=== PATIENT | male | born 1960 | race Caucasian/White ===

== ENCOUNTER 2022-02-16 08:52 | Emergency (ER) | payer BC, SELFPAY ==
[2022-02-16 09:01] VITALS: BP 112/63; PULSE 70; RESP 18; TEMP 36.8; O2SAT 97; BMI 43.6
--- NOTE | 2022-02-16 09:05 | ED.NURSE ---
When sign writer letterer or painter was triaging patient, he continued to provide extraneous information. Dictating Machine Transcriber explained questions necessary for triage and patient reported well I'll just shut the fuck up then. Patient encouraged to help provide relevant information. When asking patient about medications and allergies he is unable to recall information.
--- NOTE | 2022-02-16 09:10 | ED.NURSE ---
in RM to speak with pt, pt reportedly unsatisfied with testing options offered by MD. Pt stated he would leave and go to a different ER. Pt walked out of room, stating he was leaving. Pt walked out the wrong door, guided to the correct exit to the ER parking lot.
--- NOTE | 2022-02-16 09:20 | ED_ITS ---
HPI - General Adult General Date Seen: 02/16/22 Chief complaint: Urogenital Problems, Male Stated complaint: Prostate issues, cant empty bladder Time Seen by Provider: 02/16/22 09:08 Source: patient History of Present Illness HPI narrative: Patient is a 61-year-old who presents because of concerns of urinary retention. For the past couple of days he feels like he is not emptying his bladder completely. His dad had prostate cancer. He also feels like he is retaining fluid, he says he has stage 4 kidney disease and he has had back pain which is more chronic for him. He put all this together in his head as possible prostate problems. His dad did have prostate cancer. He says he was unable to make an appointment at the [facility] in a timely manner and ?even urgent care was 1 week out?. So he was told to come to the ER. He has not had hematuria or dysuria. No fevers. No abdominal pain. He has not had inability to void, just feels like he isn't emptying his bladder completely. Related Data Home Medications Medication Instructions Recorded Confirmed allopurinol 100 mg tablet 100 mg PO tab 02/01/22 02/01/22 aspirin 81 mg tablet,delayed 81 mg PO tab 02/01/22 02/01/22 release atorvastatin 40 mg tablet 40 mg PO tab 02/01/22 02/01/22 brimonidine 0.15 % eye drops 1 drp OPHTHALMIC (EYE) BID 02/01/22 02/01/22 calcium acetate 667 mg tablet mg PO 02/01/22 02/01/22 cholecalciferol (vitamin D3) 50 2,000 unit PO cap 02/01/22 02/01/22 mcg (2,000 unit) capsule cyanocobalamin (vitamin B-12) 1,000 mcg PO 02/01/22 02/01/22 1,000 mcg tablet doxycycline monohydrate 100 mg 100 mg PO cap 02/01/22 02/01/22 capsule dulaglutide 1.5 mg/0.5 mL mg SUBCUT 02/01/22 02/01/22 subcutaneous pen injector duloxetine 60 mg capsule,delayed 60 mg PO 02/01/22 02/01/22 release insulin aspart U-100 100 unit/mL SUBCUT 02/01/22 02/01/22 (3 mL) subcutaneous pen insulin degludec 200 unit/mL (3 unit SUBCUT 02/01/22 02/01/22 mL) subcutaneous pen leflunomide 10 mg tablet 10 mg PO tab 02/01/22 02/01/22 levothyroxine 100 mcg tablet 100 mcg PO tab 02/01/22 02/01/22 lisinopril 10 mg tablet 10 mg PO tab 02/01/22 02/01/22 metolazone 2.5 mg tablet 2.5 mg PO tab 02/01/22 02/01/22 metoprolol succinate 100 mg 100 mg PO tab 02/01/22 02/01/22 tablet,extended release 24 hr midazolam 1 mg/mL injection 1 mg IM ml 02/01/22 02/01/22 solution nitroglycerin 0.4 mg sublingual 0.4 mg BUCCAL 02/01/22 02/01/22 tablet nortriptyline 25 mg capsule 75 mg PO cap 02/01/22 02/01/22 pantoprazole 40 mg tablet,delayed 40 mg PO tab 02/01/22 02/01/22 release peg 3350-electrolytes 236 30 ml PO ml 02/01/22 02/01/22 gram-22.74 gram-6.74 gram-5.86 gram solution pregabalin 100 mg capsule 100 mg PO cap 02/01/22 02/01/22 pyridoxine (vitamin B6) 100 mg 100 mg PO tab 02/01/22 02/01/22 tablet ropinirole 4 mg tablet 4 mg PO tab 02/01/22 02/01/22 timolol maleate (PF) 0.5 % eye 1 drp OPHTHALMIC (EYE) 02/01/22 02/01/22 drops in a dropperette tizanidine 2 mg tablet 2 mg PO tab 02/01/22 02/01/22 torsemide 20 mg tablet 80 mg PO 02/01/22 02/01/22 Allergies Allergy/AdvReac Type Severity Reaction Status Date / Time allopurinol Allergy Unknown Verified 02/16/22 09:10 amlodipine Allergy Unknown Verified 02/01/22 08:28 milk Allergy Unknown Verified 02/01/22 08:28 topiramate Allergy Unknown Verified 02/01/22 08:28 Review of Systems Status of ROS: Reports: 6 or more systems reviewed and unremarkable except as noted in History and below [facility] Medical History Kidney disease Family History Other Prostate cancer Social History Smoking Status: Never smoker Second hand tobacco smoke exposure: No How often do you have a drink containing alcohol: never How often do you have six or more drinks on one occasion: Never AUDIT-C Alcohol total score: 0 Non-prescribed substance use: marijuana (any form) service: No Exam Narrative: Exam Narrative: Vital signs reviewed In general, an alert, nontoxic male. He is conversant, appears comfortable. Head: Normocephalic, atraumatic. Eyes: Pupils are equal. Sclerae anicteric. Extremities: Well perfused. Edema in the left lower extremity, site of previous ankle surgery. Skin: Warm dry, well perfused. Const: Vital Signs, click to edit/add: Vital Signs - 24 hr 02/16/22 09:01 Temperature 98.2 F Pulse Rate [Pulse Oximeter] 70 Respiratory Rate 18 Blood Pressure [Ri ght Upper Arm] 112/63 Pulse Oximetry 97 Course Course Hospital Course: After initial discussion with the patient, I discussed with him that in terms of emergency department workup, this is something that we would typically do a urinalysis for and a postvoid residual. I reviewed with him that we are not really able to assess him in terms of telling him whether he has prostate cancer or other problems with his prostate such as benign prostatic hypertrophy, that he would need to make a follow-up appointment with Urology. He seemed upset by this, and said that if we were not able to evaluate his prostate he would just go. I again offered to do the things that we are able to do in the emergency department, but he did not want that. He got up and left. He said he would go to a different ER. He said he wanted a test to evaluate his prostate. I said that while there is a blood test called a PSA, this is not something that we would typically do out of the emergency department, and that is in fact is not even a necessarily recommended screening test anymore. And at the end of the day, what he really needs is a follow-up appointment with Urology. He said that he could just tell that within a day or 2 he was going to need an appointment and if he couldn't be seen by then it was not worth making an appointment. Vital Signs Vital signs: Initial Vital Signs Temperature 98.2 F 02/16/22 09:01 Temperature Source Temporal Artery Scan 02/16/22 09:01 Pulse Rate 70 02/16/22 09:01 Respiratory Rate 18 02/16/22 09:01 Blood Pressure 112/63 02/16/22 09:01 Blood Pressure Mean 79 02/16/22 09:01 Blood Pressure Position Supine 02/16/22 09:01 Pulse Oximetry 97 02/16/22 09:01 Oxygen Delivery Method 02/16/22 09:01 Vital Signs Temperature 98.2 F 02/16/22 09:01 Pulse Rate 70 02/16/22 09:01 Respiratory Rate 18 02/16/22 09:01 Blood Pressure 112/63 02/16/22 09:01 Pulse Oximetry 97 02/16/22 09:01 Temperature 98.2 F 02/16/22 09:01 Pulse Rate 70 02/16/22 09:01 Respiratory Rate 18 02/16/22 09:01 Blood Pressure 112/63 02/16/22 09:01 Pulse Oximetry 97 02/16/22 09:01 Discharge Plan Discharge Clinical Impression: Difficulty urinating Prescriptions: No Action calcium acetate 667 mg tablet PO 0RF dulaglutide 1.5 mg/0.5 mL pen injector subcut 0RF insulin degludec 200 unit/mL (3 mL) insulin pen subcut 0RF cholecalciferol (vitamin D3) 50 mcg (2,000 unit) capsule 2,000 unit PO 0RF peg 3350-electrolytes 236-22.74-6.74 -5.86 gram recon soln 30 ml PO 0RF pregabalin 100 mg capsule 100 mg PO 0RF duloxetine 60 mg capsule,delayed release(DR/EC) 60 mg PO 0RF timolol maleate (PF) 0.5 % dropperette 1 drp ophthalmic (eye) 0RF insulin aspart U-100 100 unit/mL (3 mL) insulin pen subcut 0RF midazolam 1 mg/mL solution 1 mg IM 0RF metolazone 2.5 mg tablet 2.5 mg PO 0RF atorvastatin 40 mg tablet 40 mg PO 0RF torsemide 20 mg tablet 80 mg PO 0RF tizanidine 2 mg tablet 2 mg PO 0RF metoprolol succinate 100 mg tablet extended release 24 hr 100 mg PO 0RF cyanocobalamin (vitamin B-12) 1,000 mcg tablet 1,000 mcg PO 0RF allopurinol 100 mg tablet 100 mg PO 0RF aspirin 81 mg tablet,delayed release (DR/EC) 81 mg PO 0RF nortriptyline 25 mg capsule 75 mg PO 0RF levothyroxine 100 mcg tablet 100 mcg PO 0RF doxycycline monohydrate 100 mg capsule 100 mg PO 0RF nitroglycerin 0.4 mg tablet, sublingual 0.4 mg buccal 0RF lisinopril 10 mg tablet 10 mg PO 0RF brimonidine 0.15 % drops 1 drp ophthalmic (eye) BID 0RF ropinirole 4 mg tablet 4 mg PO 0RF pantoprazole 40 mg tablet,delayed release (DR/EC) 40 mg PO 0RF pyridoxine (vitamin B6) 100 mg tablet 100 mg PO 0RF leflunomide 10 mg tablet 10 mg PO 0RF Follow Up/Referrals: Ben Cadena MD [Primary Care Provider] -
== END 2022-02-16 09:20 | disposition left against medical advice (07) ==
PROVIDERS: Emergency Provider Emergency Medicine; PCP Family Medicine
DX: R33.9 Retention of urine, unspecified (principal)
CPT/HCPCS: 99281; 99283

== ENCOUNTER 2022-03-21 07:30 | Outpatient (RCR) | payer BC, SELFPAY ==
--- NOTE | 2022-02-16 11:14 | PT.OPEX ---
PT [facility] Outpatient Eval PT [facility] Outpatient Eval Start: 02/16/22 10:32 Freq: Status: Active Protocol: Document 02/16/22 10:33 KIMI (Rec: 02/16/22 11:02 KIMI [id number]) E-Signed By Felicia Srinivasan DPT Physical Therapy Outpatient Evaluation Insurance Information Recert Due Date 05/12/22 Insurance Name Other; See Comments Insurance Information/Comments [place] [employer] [place] Medical Diagnosis s/p L RCR 12/22/21 Treating Diagnosis s/p L RCR 12/22/21 with L shoulder pain, impaired L shoulder ROM, impaired L shoulder strength, impaired functional use of L shoulder/ UE Subjective Subjective Patient reports having L RCR surgery in December, he is unable to recall the date but able to pull it up in his EMR. L RCR 12/22/21. Patient admits that he has been out of the sling for some time, didn't really use the sling much at all. He had 6 week f/u appt with MD last week and has been cleared for AROM and discontinuation of his sling. Patient reports that he has been moving his L shoulder around regularly, using L shoulder/UE for daily/ work activities. He reports minimal L shoulder pain. Having more issues with his LBP, L ankle pain, and prostrate lately. States he takes pain meds regularly for his back and ankle pain. L shoulder pain rated 1-3/10. Sleep is interrupted but again with multiple other issues going on at this time. Patient is using ice on L shoulder as needed. States he really over did it with activity a few times and had to use ice. Date of Last Physician Visit 02/01/22 Date of Surgery (If applicable) 12/22/21 Preferred Name Tyra Precautions Treatment Precautions/Contraindications DM, heart condition, HTN, pacemaker, OA, hx R RCR, hx L ankle ORIF Objective Range of Motion L shoulder AROM: flex 155 degrees, abd 150 degrees, IR with hands placed behind LB to low t-spine, ER with hands placed behind head/upper back to upper t-spine. Strength strength testing deferred at this time, s/p L RCR 12/22/21 Assessment Assessment/Impression Patient is a 61 year old male s/p L RCR 12/22/21 with L shoulder pain, impaired L shoulder ROM, impaired L shoulder strength, impaired functional use of L shoulder/ UE. L shoulder pain range 1-3 /10. Patient was not using his sling after surgery, but had f/u with MD and given the ok to discontinue it. He admits to using his L shoulder /UE for daily/work activities for the last several weeks. L shoulder AROM: flex 155 degrees, abd 150 degrees, IR with hands placed behind LB to low t-spine, ER with hands placed behind head/upper back to upper t-spine. Strength testing deferred at this time, s/p L RCR 12/22/21. Patient c/ o multiple health issues at this time, multiple other areas of pain. Able to initiate HEP today for ROM, stretching, start of AA/AROM for gentle strengthening/ endurance - all tolerated well . Patient would benefit from skilled PT for pain/sx management, improved L shoulder ROM, improved L shoulder strength/stability, return to full functional use of L shoulder/UE for daily/ work activities, and establishment of HEP> Plan of Care Rehabilitation Potential Good Physical Therapy Goals 1. Decrease L shoulder pain to less than/equal to 3/10 with daily activities and with the progression of PT activities over the next 6-8 weeks. 2. Improve L shoulder PROM to WFL within 4-6 weeks to prepare for return to functional use of L shoulder/ UE. 3. Improve L shoulder AROM to WFL within 10-12 weeks for return to functional use of L shoulder/UE with daily/work activities. 4. Improve L shoulder/UE strength over the next 12-16 weeks for return to full functional use of L shoulder/ UE with daily/work activities. 5. Patient will be I with HEP within 12 weeks for progression toward above goals , ongoing self management of pain/sx, ongoing self improvements in ROM/strength/function, and for return to full functional use of L shoulder/UE with daily activities. Coordination/Communication With Referral Source Treatment Plan/Direct Interventions Manual Therapy,Therapeutic Exercises Frequency/Duration 1-2x/week Patient Will Be Discharged From Therapy Completion of LTG(s),Skills Plateau,Independent w/HEP, Independently Progressing Evaluation Billing Untimed Code Treatment Minutes 20 Complexity Moderate Certification Information Initial Certification Date 02/16/22 Ending Certification Date 05/12/22
== END 2022-05-22 14:18 | disposition home or self-care (01) ==
PROVIDERS: PCP Family Medicine; Visit Provider Orthopaedic Surgery
DX: M25.512 Pain in left shoulder (principal); Z51.89 Encounter for other specified aftercare
CPT/HCPCS: 97110; 97162

== ENCOUNTER 2023-03-08 07:27 | Outpatient (CLI) | payer BC, SELFPAY ==
--- OUTSIDE RECORDS SUMMARY | 2023-03-08 07:29 | XMS_ITS | Continuity of Care Document ---
Author Name Unknown Organization [facility] Address [address] [place] [address] Phone Care Team Providers Care Communications Designer Name Role Phone Will Alo PETTIT Unavailable Unavailabl e Allergies, Adverse Reactions, Alerts Substance Reaction Status Criticality lactose Active No Information Medications Medication Instructions Dosage Effective Dates (start - stop) Status Comments Cymbalta 30 mg capsule,delayed release take 1 capsule by oral route 2 times every day 30 MG - Active sulfasalazine 500 mg tablet take 2 tablet by oral route 2 times every day after meals 1000 MG - Active allopurinol 100 mg tablet take 1 tablet by oral route every day 100 MG - Active nortriptyline 25 mg capsule take 1 capsule by oral route 3 times every day 25 MG - Active Vitamin B-6 100 mg tablet - Active Vitamin B-12 1,000 mcg sublingual tablet - Active lisinopril 20 mg tablet take 1 tablet by oral route every day 20 MG - Active glipizide 5 mg tablet take 1 tablet by oral route every day before meals 5 MG - Active amlodipine 10 mg tablet take 1 tablet by oral route every day 10 MG - Active Aleve 220 mg tablet take 1 tablet by oral route every 12 hours as needed 220 MG - Active leflunomide 20 mg tablet take 1 tablet by oral route every day 20 MG - Active atorvastatin 10 mg tablet take 1 tablet by oral route every day 10 MG - Active metformin 1,000 mg tablet take 1 tablet by oral route 2 times every day with morning and evening meals 1000 MG - Active amitriptyline 25 mg tablet take 1 tablet by ORAL route every day at bedtime 25 MG - Active levothyroxine 100 mcg tablet take 1 tablet by oral route every day 1 tablet - Active brimonidine 0.15 % eye drops instill 1 drop by ophthalmic route 3 times every day into affected eye(s) 1.00 drop - Active Sandra Chewable Low Dose Aspirin 81 mg tablet chew 1 tablet by oral route every day 81 MG - Active prednisone 5 mg tablet take 1 tablet by oral route every day 5 MG - Active Procedures Procedure Date OFFICE CONSULTATION Advance Directives Directive Yes / No Effective Date File Name No Information Encounters Encounter Description Practice Location Reason(s) For Visit Diagnoses Date Provider Providers Copied on Encounter [facility], [address], [place], [id number], tel:[phone] [facility] [place] No Information Dov Prajapati. [address], [place], [id number] , [place]. [phone] OFFICE CONSULTATION [facility], [address], [place], [id number], tel:[phone] [facility] low back pain (chief complaint) Low back painType 2 diabetes mellitus with diabetic neuropathy, unspChronic pain syndromeLong term (current) use of opiate analgesic [address] Rebekah Holland. [address], [place], [id number] , [place]. tel:[phone] Referring Provider: [facility] [address], [place], [address]. tel:[phone] Family History Family Member Type Diagnosis Age At Onset No Information Payers Payer name Insurance type Covered green party ID Authoriza tion(s) No Information Social History Type Description Quantity Date Captured Comments Sex Male Smoking Status No Information Chief Complaint And Reason For Visit No Information Reason For Referral Reason For Referral No Information History Of Present Illness Encounter Date Complaint History Of Prese nt Illness low back pain (comments) This pa ken is referred by Dr. Michael Vaughn is here today for follow up evaluation and medication refills relating to his low back pain which began 1 year ago. He also has diabetic neuropathy in his BLE. He has completed minimal PT in the past. He has not tried CHERYL. The patient is primarily interested in continued medcation management. He has tried and failed gabapentin. Medical records:Dr. Michael Fry at [facility] ([place] Surinder at [facility] - PCP records [facility] treatment:Past medication: low back pain Onset: 1 year ag o. Severity level is moderate. Duration: chronic. Location of pain is lower back and BL feet.The patient describes the pain as an ache, burning, numbness and sharp. Symptoms are aggravated by lying/rest. Symptoms are relieved by pain meds/drugs. Functional Status Date Functional Assessmen t No Information Instructions Date Instruction Additional Infor mation No Information Assessments Type Assessment Date No Information Patient Care Teams Name Effective Dates (start - stop) Status Members No Information
--- OUTSIDE RECORDS SUMMARY | 2023-03-08 07:30 | XMS_ITS | Continuity of Care Document ---
Author Name Unknown Organization [facility] Address [address] [place] [address] Phone Care Team Providers Care Turbine Room Attendant Name Role Phone Cosme Rowley MD Unavailable Unavailable Allergies, Adverse Reactions, Alerts Substance Reaction Status Criticality No Known Allergies Active No Inform ation Medications Medication Instructions Dosage Effective Dates (start - stop) Status Comments prednisone 5 mg tablet denied - Active pyridoxine (vitamin B6) 50 mg tablet take 1 tablet by oral route every day 1 tablet - Active Alphagan P 0.1 % eye drops instill 1 drop by ophthalmic route every 8 hours into affected eye(s) 1.00 drop - Active duloxetine 60 mg capsule,delayed release take 1 capsule by oral route every day 60 MG - Active metolazone 2.5 mg tablet take 2 tablet by oral route every Sunday - Active NITROGLYCERIN (unknown strength) place 1 tablet by sublingual route at the first sign of an attack; no more than 3 tabs are recommended within a 15 minute period. Not Available - Active nortriptyline 25 mg capsule take 3 capsule by oral route every bedtime - Active pregabalin 100 mg capsule take 1 capsule by oral route 3 times every day 100 MG - Active ropinirole 4 mg tablet take 1 tablet by oral route up to 3 times daily - Active TIMOLOL MALEATE (unknown strength) instill 1 drop by ophthalmic route every day into affected eye(s) Not Available - Active TIZANIDINE HCL (unknown strength) as needed Not Available - Active torsemide 20 mg tablet take 4 tablet by oral route bid - Active tramadol 50 mg tablet take 1 tablet by oral route every 6 hours as needed - Active Tresiba FlexTouch U-200 insulin 200 unit/mL (3 mL) subcutaneous pen inject by subcutaneous route as per insulin protocol 0.00 - Active Trulicity 1.5 mg/0.5 mL subcutaneous pen injector inject (1.5MG) by subcutaneous route every week 1.5 MG - Active Vitamin D3 50 mcg (2,000 unit) tablet take 1 Tablet by Oral route every day 1 Tablet - Active Toprol XL 50 mg tablet,extended release take 2 tablet by oral route every day 100 MG - Active Protonix 40 mg tablet,delayed release take 1 tablet by oral route 2 times every day 40 MG - Active Novolog Flexpen 100 unit/mL subcutaneous inject by subcutaneous route per prescriber's instructions. Insulin dosing requires individualization. 0.00 - Active Vitamin B-12 1,000 mcg tablet take 1 Tablet by Oral route every day 1 Tablet - Active doxycycline hyclate 100 mg capsule take 1 capsule by oral route 2 times every day 100 MG - Active vitamin B12 1,000 mcg-folic acid 400 mcg sublingual tablet - Active metformin 1,000 mg tablet take 1 tablet by oral route 2 times every day with morning and evening meals 1000 MG - Active atorvastatin 10 mg tablet take 1 tablet by oral route every day 10 MG - Active Synthroid 88 mcg tablet take 1 tablet by oral route every day 88 MCG - Active amlodipine 5 mg tablet take 1 tablet by oral route every day 5 MG - Active lisinopril 20 mg tablet take 1 tablet by oral route every day 20 MG - Active aspirin 81 mg tablet,delayed release take 1 tablet by oral route every day 81 MG - Active allopurinol 100 mg tablet take 1 tablet by oral route every day 100 MG - Active Betimol 0.25 % eye drops instill 1 drop by ophthalmic route 2 times every day into affected eye(s) 1.00 drop - Active leflunomide 10 mg tablet Denied. Patient is overdue for lab work - No Longer Active Procedures Procedure Date Phone E/M By Isela 11-20 Min Office/Outpatient Visit, Est Office/Outpatient Visit, Est Office/Outpatient Visit, Est Routine Venipuncture Complete Cbc WAuto Diff Wbc Rbc Sed Rate, Nonautomated CReactive Protein Assay Of Serum Albumin Assay Of Creatinine Transferase (Ast) (Sgot) Alanine Amino (Alt) (Sgpt) Office/Outpatient Visit, Est Routine Venipuncture Complete Cbc WAuto Diff Wbc CReactive Protein Assay Of Serum Albumin Assay Of Creatinine Transferase (Ast) (Sgot) Alanine Amino (Alt) (Sgpt) Office/Outpatient Visit, Est Routine Venipuncture Complete Cbc WAuto Diff Wbc CReactive Protein Assay Of Serum Albumin Assay Of Creatinine Transferase (Ast) (Sgot) Alanine Amino (Alt) (Sgpt) Office/Outpatient Visit, Est Office/Outpatient Visit, Est Office/Outpatient Visit, Est Routine Venipuncture Complete Cbc WAuto Diff Wbc CReactive Protein Assay Of Serum Albumin Assay Of Creatinine Transferase (Ast) (Sgot) Alanine Amino (Alt) (Sgpt) Office/Outpatient Visit, Est Routine Venipuncture Complete Cbc WAuto Diff Wbc Rbc Sed Rate, Nonautomated CReactive Protein Assay Of Serum Albumin Assay Of Creatinine Transferase (Ast) (Sgot) Alanine Amino (Alt) (Sgpt) Office/Outpatient Visit, Est Routine Venipuncture Complete Cbc WAuto Diff Wbc Rbc Sed Rate, Nonautomated Assay Of Serum Albumin Assay Of Creatinine Transferase (Ast) (Sgot) Alanine Amino (Alt) (Sgpt) CReactive Protein CCP Antibody Rheumatoid Factor, IGM Rheumatoid Factor, IGG, IGA Office/Outpatient Visit, Est Office/Outpatient Visit, Est Office/Outpatient Visit, Est Office/Outpatient Visit, New X-Ray Exam Of Pelvis 1 Or 2v Routine Venipuncture Specimen Handling Rbc Sed Rate, Nonautomated Assay Of Blood/Uric Acid Transferase (Ast) (Sgot) CReactive Protein Advance Directives Directive Yes / No Effective Date File Name No Information Encounters Encounter Description Practice Location Reason(s) For Visit Diagnoses Date Provider Providers Copied on Encounter [facility] , [address], [place], [address], [place] tel:[phone] [facility] , No Information 1 Amrik Aguiar. [facility] [address], [place], [address], [place]. tel:[phone] [facility] , [address], [place], [address], [place] tel:[phone] [facility] , No Information 1 Amrik Aguiar. [facility] [address], [place], [address], [place]. tel:[phone] [facility] , [address], [place], [address], [place] tel:[phone] [facility] , No Information 1 Amrik Aguiar. [facility] [address], [place], [address], [place]. tel:[phone] Phone E/M By Phys 11-20 Min [facility] , [address], [place], [address], [place] tel:[phone] Telehealth Rheumatoid arthritis (chief complaint)Mo nitor Chronic High Risk Meds (chief complaint) RA w/ rheumatoid factor of multiple sites w/o organ involvementO ther buttermaker helper (current) drug therapy 5- 1 Amrik Aguiar. [facility] [address], [place], [address], [place]. tel:[phone] Referring Provider: Cosme Alcantara, [facility] [address], [place], [address]. tel:[phone] Office/Outpa tient Visit, Est [facility] , [address], [place], [address], [place] tel:[phone] [facility] , Rheumatoid arthritis (chief complaint)Mo nitor Chronic High Risk Meds (chief complaint) RA w/ rheumatoid factor of multiple sites w/o organ involvementL ow back painOther intermediate (current) drug therapy 201 9 Amrik Aguiar. [facility] [address], [place], [address], [place]. tel:[phone] Referring Provider: Cosme Alcantara, [facility] [address], [place], [address]. tel:[phone] Office/Outpa tient Visit, Est [facility] , [address], [place], [address], [place] tel:[phone] [facility] , RA w/ rheumatoid factor of multiple sites w/o organ involvementO ther buttermaker helper (current) drug therapyLow back pain Sep-2 8 Amrik Aguiar. [facility] [address], [place], [address], [place]. tel:[phone] Referring Provider: Cosme Alcantara, [facility] [address], [place], [address]. tel:[phone] Office/Outpa tient Visit, Est [facility] , [address], [place], [address], [place] tel:[phone] [facility] , Rheumatoid arthritis (chief complaint)Mo nitor Chronic High Risk Meds (chief complaint) RA w/ rheumatoid factor of multiple sites w/o organ involvementO ther intermediate (current) drug therapyThrom bocytopenia Amrik Herrera [facility] [address], [place], [address], [place]. tel:[phone] Referring Provider: Cosme Alcantara, [facility] [address], [place], [address]. tel:[phone] Office/Outpa tient Visit, Est [facility] , [address], [place], [address], [place] tel:[phone] [facility] , Rheumatoid arthritis (chief complaint)Mo nitor Chronic High Risk Meds (chief complaint) RA w/ rheumatoid factor of multiple sites w/o organ involvementO ther intermediate (current) drug therapyThrom bocytopenia Amrik Aguiar. [facility] [address], [place], [address], [place]. tel:[phone] Referring Provider: Cosme Alcantara, [facility] [address], [place], [address]. tel:[phone] [facility] , [address], [place], [address], [place] tel:[phone] [facility] , No Information 6 Amrik Cosme. [facility] [address], [place], [address], [place]. tel:[phone] Office/Outpa tient Visit, Est [facility] , [address], [place], [address], [place] tel:[phone] [facility] , Rheumatoid arthritis (chief complaint)Mo nitor Chronic High Risk Meds (chief complaint) RA w/ rheumatoid factor of multiple sites w/o organ involvementO ther buttermaker helper (current) drug therapy 6 Amrik Aguiar. [facility] [address], [place], [address], [place]. tel:[phone] Referring Provider: Cosme Alcantara, [facility] [address], [place], [address]. tel:[phone] Office/Outpa tient Visit, Est [facility] , [address], [place], [address], [place] tel:[phone] [facility] , Rheumatoid arthritis (chief complaint)Mo nitor Chronic High Risk Meds (chief complaint) RA w/ rheumatoid factor of multiple sites w/o organ involvementO ther buttermaker helper (current) drug therapyPares thesia of skin 6 Amrik Cosme. [facility] [address], [place], [address], [place]. tel:[phone] Referring Provider: Cosme Alcantara, [facility] [address], [place], [address]. [phone] Office/Outpa tient Visit, Est [facility] , [address], [place], [address], [place] [phone] [facility] , Rheumatoid arthritis (chief complaint)Mo nitor Chronic High Risk Meds (chief complaint) RA w/ rheumatoid factor of multiple sites w/o organ involvementO ther intermediate (current) drug therapyPares thesia of skin Oct- 6 Amrik Aguiar. [facility] [address], [place], [address], [place]. tel:[phone] Referring Provider: Cosme Alcantara, [facility] [address], [place], [address]. tel:[phone] Office/Outpa tient Visit, Est [facility] , [address], [place], [address], [place] tel:[phone] [facility] , Rheumatoid arthritis (chief complaint) RA w/ rheumatoid factor of multiple sites w/o organ involvementO ther buttermaker helper (current) drug therapy Fe 6 Amrik Aguiar. [facility] [address], [place], [address], [place]. tel:[phone] Referring Provider: Cosme Alcantara, [facility] [address], [place], [address]. tel:[phone] Office/Outpa tient Visit, Est [facility] , [address], [place], [address], [place] tel:[phone] [facility] , Inflammatory Polyarthropa thy (chief complaint) RA w/ rheumatoid factor of multiple sites w/o organ involvementO ther intermediate (current) drug therapy Amrik Aguiar. [facility] [address], [place], [address], [place]. tel:[phone] Referring Provider: Cosme Alcantara, [facility] [address], [place], [address]. tel:[phone] Office/Outpa tient Visit, Est [facility] , [address], [place], [address], [place] tel:[phone] [facility] , Inflammatory Polyarthropa thy (chief complaint) Inflammatory polyarthropa thyTherapeut ic Drug Monitoring Amrik Aguiar. [facility] [address], [place], [address], [place]. tel:[phone] Referring Provider: Cosme Alcantara, [facility] [address], [place], [address]. tel:[phone] Office/Outpa tient Visit, Est [facility] , [address], [place], [address], [place] tel:[phone] [facility] , Inflammatory Polyarthropa thy (chief complaint) Unspecified inflammatory polyarthropa thyTherapeut ic Drug Monitoring Amrik Aguiar. [facility] [address], [place], [address], [place]. tel:[phone] Referring Provider: Cosme Alcantara, [facility] [address], [place], [address]. tel:[phone] Office/Outpa tient Visit, Est [facility] , [address], [place], [address], [place] tel:[phone] [facility] , Inflammatory Polyarthropa thy (chief complaint) Unspecified inflammatory polyarthropa thyTherapeut ic Drug MonitoringLO NG-TERM (CURRENT) USE OF STEROIDS 4 Amrik Aguiar. [facility] [address], [place], [address], [place]. tel:[phone] Referring Provider: Cosme Alcantara, [facility] [address], [place], [address]. tel:[phone] Office/Outpa tient Visit, Est [facility] , [address], [place], [address], [place] tel:[phone] [facility] , Joint Pain (chief complaint) Pain in joint involving multiple sitesTherape utic Drug Monitoring 4 Amrik Aguiar. [facility] [address], [place], [address], [place]. tel:[phone] Referring Provider: Cosme Alcantara, [facility] [address], [place], [address]. tel:[phone] Office/Outpa tient Visit, New [facility] , [address], [place], [address], [place] tel:[phone] [facility] , Joint Pain (chief complaint) Pain in joint involving multiple sitesOther specified disorders of bursae and tendons in shoulder regionAbnorm al Liver Enzymes 4 Amrik Aguiar. [facility] [address], [place], [address], [place]. tel:[phone] Referring Provider: Cosme Alcantara, [facility] , [facility] [address], [place], [place], [address]. tel:[phone] Family History Family Member Type Diagnosis Age At Onset No Information Payers Payer name Insurance type Covered republican ID Authortikia stacy(s) Robin BROWN [id number] Social History Type Description Quantity Date Captured Comments Alcohol Use Details Unknown Caffeine Use Details Unknown Tobacco Use Status No Information Smoking Status No Information Sex Male Chief Complaint And Reason For Visit No Information Reason For Referral Reason For Referral No Information Plan Of Treatment Date Type Action Status Referral Ordered: X-Ray Exam Of Pelvis 1 Or 2v AP ordered History Of Present Illness Encounter Date Complaint History Of Prese nt Illness Rheumatoid arthritis Monitor Chronic High Risk Meds Rheumatoid arthritis Monitor Chronic High Risk Meds Rheumatoid arthritis Monitor Chronic High Risk Meds Rheumatoid arthritis Monitor Chronic High Risk Meds Rheumatoid arthritis Monitor Chronic High Risk Meds Rheumatoid arthritis Monitor Chronic High Risk Meds Rheumatoid arthritis Monitor Chronic High Risk Meds Rheumatoid arthritis Inflammatory Polyarthropathy Inflammatory Polyarthropathy Functional Status Date Functional Assessmen t No Information Instructions Date Instruction Additional Infor mation Decrease leflunomide from 20 mg to 10 mg daily, while continuing prednisone 5 mg daily. 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 The patient plans to update this next on 08/12/2020. Related to Other buttermaker helper (current) drug therapy The patient will hav e CBC, Cr, transaminases and albumin performed every 3 months. A lab order was provided to the patient. Related to Other intermediate (current) drug therapy Continue treatment t hrough the low-back specialist/pain clinic.Option for orthopedic input as well. Unfortunately, I do not have additional helpful recommendations in this regard. Related to Low back pain Continue leflunomide 20 milligrams daily and prednisone 5 milligrams daily.Considering the strong tendency for rheumatoid arthritis to flare when an effective medication is decreased or withdrawn, I am hesitant to decrease the sulfasalazine unless there is strong concern that it is contributory to the renal insufficiency. I defer to the patient's complaint inspector regarding the importance of decreasing or discontinuing the sulfasalazine. 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 Related to Low back pain The patient will hav e CBC, Cr, transaminases and albumin performed every 3 months. A lab order was provided to the patient. Related to Other intermediate (current) drug therapy Continue current ant i-rheumatic medications unchanged. 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 Such laboratory studies can be done locally, but I stressed to the patient the importance of following through with this. A lab order was provided to the patient. Related to Other intermediate (current) drug therapy I encourage the tyler ent to limit his alcohol consumption.I will consider further adjustment to the patient's antirheumatic medication doses.Option for hematology evaluation. Related to Thrombocytopenia Continue current ant i-rheumatic medications unchanged, pending results of today's updated laboratory studies. 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 Related to Thrombocytopenia The patient will hav e CBC, Cr, transaminases and albumin performed every 2-3 months. Related to Other buttermaker helper (current) drug therapy Continue current ant i-rheumatic medications unchanged, pending results of today's updated laboratory studies. 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 Related to Other intermediate (current) drug therapy Continue current ant i-rheumatic medications unchanged. 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 I did ask the patient to clear this medicine with Dr. Carroll before initiating. Related to Paresthesia of skin Continue current ant i-rheumatic medications unchanged. 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 Related to Other intermediate (current) drug therapy We will pursue a tri al off of leflunomide.The patient plans for updated evaluation with Dr. Álvarez in the near future regarding his diabetes control, which has reportedly been very good. Related to Paresthesia of skin The patient will hav e CBC, Cr, transaminases and albumin performed every 2-3 months. Related to Other buttermaker helper (current) drug therapy Than you sulfasalazi ne and low-dose prednisone.Hold leflunomide x 6-8 weeks, while monitoring the peripheral neuropathy symptoms. 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 Detailed instructions in this regard were written out and given to the patient today. He expresses understanding.Continue sulfasalazine 3 grams per day and prednisone 5 milligrams per day. 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 Related to Other buttermaker helper (current) drug therapy The patient will hav e CBC, Cr, transaminases and albumin performed every 2-3 months in the near term. Related to Other intermediate (current) drug therapy Option to mildly fur ther increase the prednisone from 2.5 milligrams to 5 milligrams per day in the near term.Increase sulfasalazine from 2 grams to 3 grams per day. The patient is aware that it will likely require 6 weeks for the latter to become efficacious. 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 Related to Therapeutic Drug Monitoring Return to prednisone 2.5 milligrams per day.Continue sulfasalazine 2 grams per day and OTC naproxen therapy. Related to Inflammatory polyarthropathy Assessments Type Assessment Date No Information Patient Care Teams Name Effective Dates (start - stop) Status Members No Information
--- NOTE | 2023-03-08 07:45 | CRLHL7_ITS ---
For Patients: As a result of the Century Cures Act, medical imaging exams and procedure reports are released immediately into your electronic medical record. You may view this report before your referring provider. If you have questions, please contact your health care provider. INDICATION: Charcot joint left ankle. TECHNIQUE: 5.66 millicuries of technetium-99m Ceretec has been given for white blood cell labeling. Planar imaging of the bilateral ankle/foot region has been performed. FINDINGS: There is mild asymmetric increased activity in the region of the left ankle. Distally there is no significant abnormal uptake on the left. The right ankle and foot region demonstrates no significant abnormal uptake. IMPRESSION: There is mild asymmetric increased uptake in the region of the left ankle consistent with ongoing inflammatory change. The activity is ill-defined and not localized more suggestive inflammatory change. Low level of infection is not entirely excluded. Dictated by Shubham Rushing MD @ 03/13/2023 8:31:29 AM (Electronically Signed)
== END 2023-03-08 07:28 | disposition home or self-care (01) ==
LOC: NM 07:27
PROVIDERS: PCP Family Medicine; Visit Provider Orthopaedic Surgery
DX: M14.672 Charcot's joint, left ankle and foot (principal)
CPT/HCPCS: 78800; A9569

== ENCOUNTER 2023-03-22 11:43 | Outpatient (CLI) | payer BC, SELFPAY ==
--- OUTSIDE RECORDS SUMMARY | 2023-03-22 11:46 | XMS_ITS | Continuity of Care Document ---
Author Name Unknown Organization [facility] Address [address] [facility] [place] [address] Phone Care Team Providers Care Paint Sprayer Sandblaster Name Role Phone Will Alo PETTIT Unavailable [...] Diagnoses Date Provider Providers Copied on Encounter [facility], [address] [place], [place], [id number], tel:[phone] [facility] [place] No Information Dov Prajapati. [address] [place], [place], [id number] , [place]. [phone] OFFICE CONSULTATION [facility], [address] [place], [place], [id number], tel:[phone] [facility] low back pain (chief complaint) Low back painType 2 diabetes mellitus with diabetic neuropathy, unspChronic pain syndromeLong term (current) use of opiate analgesic 7 Rebekah Holland. [address] [place], [place], [id number] , [place]. tel:[phone] Referring Provider: [facility] [address] [facility] [address], [place], [address]. tel:[phone] Family History Family Member Type Diagnosis Age At Onset No Information Payers Payer name Insurance type Covered alliance party ID Authoriza tion(s) No Information Social [...] failed gabapentin. Medical records:Dr. Michael Fry at [facility]. Surinder at [facility] - PCP records [facility] treatment:Past medication: low back pain Onset: 1 [...]
--- OUTSIDE RECORDS SUMMARY | 2023-03-22 11:46 | XMS_ITS | Continuity of Care Document ---
Author Name Unknown Organization [facility] Address [address] [place] [address] Phone Care Team Providers Care Onion Topper Name Role Phone Cosme Rowley MD Unavailable [...] route every day 1 Tablet - Active Protonix 40 mg tablet,delayed release take 1 tablet by oral route 2 times every day 40 MG - Active Toprol XL 50 mg tablet,extended release take 2 tablet by oral route every day 100 MG - Active Novolog Flexpen 100 unit/mL [...] acid 400 mcg sublingual tablet - Active Synthroid 88 mcg tablet take 1 tablet by oral route every day 88 MCG - Active atorvastatin 10 mg tablet take 1 tablet by oral route every day 10 MG - Active metformin 1,000 mg tablet take 1 tablet by oral route 2 times every day with morning and evening meals 1000 MG - Active amlodipine 5 mg tablet take [...] [facility]ants , [address], [place], [address], [place] tel:[phone] [facility] , No Information 1 Amrik Aguiar. [facility] [address], [place], [address], [place]. tel:[phone] [facility] , [address], [place], [address], [place] tel:[phone] [facility] , No Information 1 Amrik Aguiar. [facility] [address], [place], [address], [place]. tel:[phone] [facility] , [address], [place], [address], [place] tel:[phone] [facility] , No Information 1 Amrik Aguiar. [facility] [address], [place], [address], [place]. tel:[phone] Phone E/M By Phys 11-20 Min [facility] , [address], [place], [address], [place] tel:[phone] Telehealth Rheumatoid arthritis (chief complaint)Mo nitor Chronic High Risk Meds (chief complaint) RA w/ rheumatoid factor of multiple sites w/o organ involvementO ther buttermilk drier operator (current) drug therapy 5- 1 Amrik Aguiar. [facility] [address], [place], [address], [place]. tel:[phone] Referring Provider: Cosme Alcantara, [facility] [address], [place], [address]. tel:[phone] Office/Outpa tient Visit, Est [facility] , [address], [place], [address], [place] tel:[phone] [facility] , Rheumatoid arthritis (chief complaint)Mo nitor Chronic High Risk Meds (chief complaint) RA w/ rheumatoid factor of multiple sites w/o organ involvementL ow back painOther custodial (current) drug therapy 201 9 Amrik Aguiar. [facility] [address], [place], [address], [place]. tel:[phone] Referring Provider: Cosme Alcantara, [facility] [address], [place], [address]. tel:[phone] Office/Outpa tient Visit, Est [facility] , [address], [place], [address], [place] tel:[phone] [facility] , RA w/ rheumatoid factor of multiple sites w/o organ involvementO ther buttermilk drier operator (current) drug therapyLow back pain Sep-2 8 Amrik Aguiar. [facility] [address], [place], [address], [place]. tel:[phone] Referring Provider: Cosme Alcantara, [facility] [address], [place], [address]. tel:[phone] Office/Outpa tient Visit, Est [facility] , [address], [place], [address], [place] tel:[phone] [facility] , Rheumatoid arthritis (chief complaint)Mo nitor Chronic High Risk Meds (chief complaint) RA w/ rheumatoid factor of multiple sites w/o organ involvementO ther custodial (current) drug therapyThrom bocytopenia Amrik Herrera [facility] [address], [place], [address], [place]. tel:[phone] Referring Provider: Cosme Alcantara, [facility] [address], [place], [address]. tel:[phone] Office/Outpa tient Visit, Est [facility] , [address], [place], [address], [place] tel:[phone] [facility] , Rheumatoid arthritis (chief complaint)Mo nitor Chronic High Risk Meds (chief complaint) RA w/ rheumatoid factor of multiple sites w/o organ involvementO ther custodial (current) drug therapyThrom bocytopenia Amrik Aguiar. [facility] [address], [place], [address], [place]. tel:[phone] Referring Provider: Cosme Alcantara, [facility] [address], [place], [address]. tel:[phone] [facility] , [address], [place], [address], [place] tel:[phone] [facility] , No Information 6 Amrik Cosme. [facility] [address], [place], [address], [place]. tel:[phone] Office/Outpa tient Visit, Est [facility] , [address], [place], [address], [place] tel:[phone] [facility] , Rheumatoid arthritis (chief complaint)Mo nitor Chronic High Risk Meds (chief complaint) RA w/ rheumatoid factor of multiple sites w/o organ involvementO ther buttermilk drier operator (current) drug therapy 6 Amrik Aguiar. [facility] [address], [place], [address], [place]. tel:[phone] Referring Provider: Cosme Alcantara, [facility] [address], [place], [address]. tel:[phone] Office/Outpa tient Visit, Est [facility] , [address], [place], [address], [place] tel:[phone] [facility] , Rheumatoid arthritis (chief complaint)Mo nitor Chronic High Risk Meds (chief complaint) RA w/ rheumatoid factor of multiple sites w/o organ involvementO ther buttermilk drier operator (current) drug therapyPares thesia of skin 6 Amrik Cosme. [facility] [address], [place], [address], [place]. tel:[phone] Referring Provider: Cosme Alcantara, [facility] [address], [place], [address]. [phone] Office/Outpa tient Visit, Est [facility] , [address], [place], [address], [place] [phone] [facility] , Rheumatoid arthritis (chief complaint)Mo nitor Chronic High Risk Meds (chief complaint) RA w/ rheumatoid factor of multiple sites w/o organ involvementO ther custodial (current) drug therapyPares thesia of skin Oct- 6 Amrik Aguiar. [facility] [address], [place], [address], [place]. tel:[phone] Referring Provider: Cosme Alcantara, [facility] [address], [place], [address]. tel:[phone] Office/Outpa tient Visit, Est [facility] , [address], [place], [address], [place] tel:[phone] [facility] , Rheumatoid arthritis (chief complaint) RA w/ rheumatoid factor of multiple sites w/o organ involvementO ther buttermilk drier operator (current) drug therapy Fe 6 Amrik Aguiar. [facility] [address], [place], [address], [place]. tel:[phone] Referring Provider: Cosme Alcantara, [facility] [address], [place], [address]. tel:[phone] Office/Outpa tient Visit, Est [facility] , [address], [place], [address], [place] tel:[phone] [facility] , Inflammatory Polyarthropa thy (chief complaint) RA w/ rheumatoid factor of multiple sites w/o organ involvementO ther custodial (current) drug therapy Amrik Aguiar. [facility] [address], [place], [address], [place]. tel:[phone] Referring Provider: Cosme Alcantara, [facility] [address], [place], [address]. tel:[phone] Office/Outpa tient Visit, Est [facility] , [address], [place], [address], [place] tel:[phone] [facility] , Inflammatory Polyarthropa thy (chief complaint) Inflammatory polyarthropa thyTherapeut ic Drug Monitoring Amrik Aguiar. [facility] [address], [place], [address], [place]. tel:[phone] Referring Provider: Cosme Alcantara, [facility] [address], [place], [address]. tel:[phone] Office/Outpa tient Visit, Est [facility] , [address], [place], [address], [place] tel:[phone] [facility] , Inflammatory Polyarthropa thy (chief complaint) Unspecified inflammatory polyarthropa thyTherapeut ic Drug Monitoring Amrik Aguiar. [facility] [address], [place], [address], [place]. tel:[phone] Referring Provider: Cosme Alcantara, [facility] [address], [place], [address]. tel:[phone] Office/Outpa tient Visit, Est [facility] , [address], [place], [address], [place] tel:[phone] [facility] , Inflammatory Polyarthropa thy (chief complaint) Unspecified inflammatory polyarthropa thyTherapeut ic Drug MonitoringLO NG-TERM (CURRENT) USE OF STEROIDS 4 Amrik Aguiar. [facility] [address], [place], [address], [place]. tel:[phone] Referring Provider: Cosme Alcantara, [facility] [address], [place], [address]. tel:[phone] Office/Outpa tient Visit, Est [facility] , [address], [place], [address], [place] tel:[phone] [facility] , Joint Pain (chief complaint) Pain in joint involving multiple sitesTherape utic Drug Monitoring 4 Amrik Aguiar. [facility] [address], [place], [address], [place]. tel:[phone] Referring Provider: Cosme Alcantara, [facility] [address], [place], [address]. tel:[phone] Office/Outpa tient Visit, New [facility] , [address], [place], [address], [place] tel:[phone] [facility] , Joint Pain (chief complaint) Pain in joint involving multiple sitesOther specified disorders of bursae and tendons in shoulder regionAbnorm al Liver Enzymes 4 Amrik Aguiar. [facility] [address], [place], [address], [place]. tel:[phone] Referring Provider: Cosme Alcantara, [facility] [address], [place], [place], [address]. tel:[phone] Family History Family Member Type Diagnosis Age At Onset No Information Payers Payer name Insurance type Covered alliance party ID Authorpushpa kumar(s) Robin BROWN [id number] Social History Type Description Quantity Date Captured [...] Rheumatoid arthritis Monitor Chronic High Risk Meds Monitor Chronic High Risk Meds Rheumatoid arthritis Rheumatoid arthritis Monitor Chronic High Risk Meds Rheumatoid arthritis Monitor Chronic High Risk Meds Rheumatoid arthritis Monitor Chronic High Risk Meds Monitor Chronic High Risk Meds Rheumatoid arthritis Rheumatoid arthritis Inflammatory Polyarthropathy Inflammatory Polyarthropathy Functional [...] this next on 08/12/2020. 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 A lab order was provided to the patient. Related to Other custodial (current) drug therapy Continue treatment t hrough [...] renal insufficiency. I defer to the patient's cna regarding the importance of decreasing or discontinuing [...] provided to the patient. Related to Other custodial (current) drug therapy Continue current ant i-rheumatic medications unchanged. 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 Related to Thrombocytopenia The patient will hav e CBC, Cr, transaminases and albumin performed every 3 months. Such laboratory studies can be done locally, but I stressed to the patient the importance of following through with this. A lab order was provided to the patient. Related to Other custodial (current) drug therapy Continue current ant i-rheumatic [...] performed every 2-3 months. 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 Related to Other custodial (current) drug therapy Continue current ant i-rheumatic [...] before initiating. Related to Paresthesia of skin The patient will hav e CBC, Cr, transaminases and albumin performed every 2-3 months. Related to Other custodial (current) drug therapy Continue current ant i-rheumatic medications unchanged. 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 Álvarez in the near future regarding his diabetes control, which has reportedly been very good. Related to Paresthesia of skin The patient will hav e CBC, Cr, transaminases and albumin performed every 2-3 months. 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 Related to Other buttermilk drier operator (current) drug therapy After discussion of potential treatment options, risks [...] in the near term. Related to Other custodial (current) drug therapy Option to mildly fur [...]
[2023-03-22 12:18] LABS: Basophils Absolute Auto 0.05 K/uL (0.00-0.30); Basophils Percent Auto 0.6 % (0.0-3.0); Eosinophils Absolute Auto 0.09 K/uL (0.00-0.50); Hematocrit 31.9 % (37.0-53.0); Hemoglobin* 10.5 gm/dL (13.5-17.5); Immature Granulocytes Abs Auto 0.06 K/uL (0.00-0.30); Immature Granulocytes Pct Auto 0.7 %; Lymphocytes Percent Auto 17.9 % (20-44); Mean Corpuscular HGB Conc 33 gm/dL (32-36); Mean Corpuscular Hemoglobin 31 pg (26-34); Mean Corpuscular Volume 94 fL (80-100); Monocytes Percent Auto 9.4 % (0.0-11.0); Neutrophils Absolute Auto 6.06 K/uL (1.7-7.0); Neutrophils Percent Auto 70.4 % (42.0-72.0); Platelet Count* 179 K/uL (140-440); RDW Coefficient of Variation % 15.7 % (11.5-15.5); Red Blood Count 3.39 m/uL (4.30-5.90); White Blood Count* 8.61 K/uL (4.50-11.00)
[2023-03-22 12:21] LABS: Slide Review Reflex No
[2023-03-22 12:32] LABS: Albumin* 4.2 g/dL (3.3-5.0)
[2023-03-22 12:39] LABS: C Reactive Protein* 3.7 mg/dL (0.5-1.0)
[2023-03-22 12:58] LABS: Erythrocyte SedimentationRate* 64 mm/hr (2-15)
[2023-03-22 13:20] LABS: Vitamin D 25 Hydroxy* 54 ng/mL (30-80)
[2023-03-22 13:25] LABS: Hemoglobin A1C* 7.75 % (0-5.6)
[2023-03-24 00:50] LABS: Prealbumin 25.2 mg/dL (20.0-40.0); Transferrin 231 mg/dL (200-360)
== END 2023-03-22 11:44 | disposition home or self-care (01) ==
PROVIDERS: PCP Family Medicine; Visit Provider Orthopaedic Surgery
DX: M14.679 Charcot's joint, unspecified ankle and foot (principal)
CPT/HCPCS: 36415; 82040; 82306; 83036; 84134; 84466; 85025; 85651; 86140

== ENCOUNTER 2023-03-29 08:42 | Outpatient (CLI) | payer BC, SELFPAY ==
--- OUTSIDE RECORDS SUMMARY | 2023-03-29 08:44 | XMS_ITS | Continuity of Care Document ---
Author Name Unknown Organization [facility] Address [address] [facility] [address] [place] [address] Phone Care Team Providers Care Carrot Tier Name Role Phone Will Alo PETTIT Unavailable [...] Diagnoses Date Provider Providers Copied on Encounter [facility], [address] [place], [place], [id number], tel:[phone] [facility] [place] No Information Dov Prajapati. [address] [place], [place], [id number] , [place]. tel:[phone] OFFICE CONSULTATION [facility], [address] [place] [address], [id number], tel:[phone] [facility] low back pain (chief complaint) Low back painType 2 diabetes mellitus with diabetic neuropathy, unspChronic pain syndromeLong term (current) use of opiate analgesic 7 Rebekah Holland. [address] [place], [place], [id number] , [place]. tel:[phone] Referring Provider: [facility] [address] [facility] [address], [place], [address]. tel:[phone] Family History Family Member Type Diagnosis Age At Onset No Information Payers Payer name Insurance type Covered constitution party ID Authoriza tion(s) No Information Social History Type Description Quantity Date Captured Comments Sex Male Smoking Status No Information Chief Complaint And Reason For Visit No Information Reason For Referral Reason For Referral No Information History Of Present Illness Encounter Date Complaint History Of Zakia nt Illness low back pain Onset: 1 year ag o. Severity level is moderate. Duration: chronic. Location of pain is lower back and BL feet.The patient describes the pain as an ache, burning, numbness and sharp. Symptoms are aggravated by lying/rest. Symptoms are relieved by pain meds/drugs. low back pain (comments) This pa tient is referred by Dr. Michael Vaughn is [...] at [facility] Surinder at [facility] - PCP records [facility] treatment:Past medication: Functional Status Date Functional Assessmen t No Information Instructions Date Instruction Additional Infor mation No Information Assessments Type Assessment Date No Information Patient Care Teams Name Effective Dates (start - stop) Status Members No Information
--- OUTSIDE RECORDS SUMMARY | 2023-03-29 08:44 | XMS_ITS | Continuity of Care Document ---
Author Name Unknown Organization [facility] Address [address] [place] [address] Phone Care Team Providers Care Vocational Rehabilitation Specialist Name Role Phone Cosme Rowley MD Unavailable [...] [facility] , [address], [place], [address], [place] tel:[phone] [facility] , No Information 1 Amrik Aguiar. [facility] [address], [place], [address], [place]. tel:[phone] [facility] , [address], [place], [address], [place] tel:[phone] [facility] , No Information 1 Amrik Aguiar. [facility] [address], [place], [address], [place]. tel:[phone] [facility] , [address], [place], [address], [place] tel:[phone] [facility] , No Information 1 Amrik Aguiar. [facility] [address], [place], [address], [place]. tel:[phone] Phone E/M By Phys 11-20 Min [facility] , [address], [place], [address], [place] tel:[phone] Telehealth Rheumatoid arthritis (chief complaint)Mo nitor Chronic High Risk Meds (chief complaint) RA w/ rheumatoid factor of multiple sites w/o organ involvementO ther skilled nursing (current) drug therapy 5- 1 Amrik Aguiar. [facility] [address], [place], [address], [place]. tel:[phone] Referring Provider: Cosme Alcantara, [facility] [address], [place], [address]. tel:[phone] Office/Outpa tient Visit, Est [facility] , [address], [place], [address], [place] tel:[phone] [facility] , Rheumatoid arthritis (chief complaint)Mo nitor Chronic High Risk Meds (chief complaint) RA w/ rheumatoid factor of multiple sites w/o organ involvementL ow back painOther medical terminologist (current) drug therapy 201 9 Amrik Aguiar. [facility] [address], [place], [address], [place]. tel:[phone] Referring Provider: Cosme Alcantara, [facility] [address], [place], [address]. tel:[phone] Office/Outpa tient Visit, Est [facility] , [address], [place], [address], [place] tel:[phone] [facility] , RA w/ rheumatoid factor of multiple sites w/o organ involvementO ther skilled nursing (current) drug therapyLow back pain Sep-2 8 Amrik Aguiar. [facility] [address], [place], [address], [place]. tel:[phone] Referring Provider: Cosme Alcantara, [facility] [address], [place], [address]. tel:[phone] Office/Outpa tient Visit, Est [facility] , [address], [place], [address], [place] tel:[phone] [facility] , Rheumatoid arthritis (chief complaint)Mo nitor Chronic High Risk Meds (chief complaint) RA w/ rheumatoid factor of multiple sites w/o organ involvementO ther skilled nursing (current) drug therapyThrom bocytopenia Amrik Herrera [facility] [address], [place], [address], [place]. tel:[phone] Referring Provider: Cosme Alcantara, [facility] [address], [place], [address]. tel:[phone] Office/Outpa tient Visit, Est [facility] , [address], [place], [address], [place] tel:[phone] [facility] , Rheumatoid arthritis (chief complaint)Mo nitor Chronic High Risk Meds (chief complaint) RA w/ rheumatoid factor of multiple sites w/o organ involvementO ther skilled nursing (current) drug therapyThrom bocytopenia Amrik Aguiar. [facility] [address], [place], [address], [place]. tel:[phone] Referring Provider: Cosme Alcantara, [facility] [address], [place], [address]. tel:[phone] [facility] , [address], [place], [address], [place] tel:[phone] [facility] , No Information 6 Amrik Cosme. [facility] [address], [place], [address], [place]. tel:[phone] Office/Outpa tient Visit, Est [facility] , [address], [place], [address], [place] tel:[phone] [facility] , Rheumatoid arthritis (chief complaint)Mo nitor Chronic High Risk Meds (chief complaint) RA w/ rheumatoid factor of multiple sites w/o organ involvementO ther skilled nursing (current) drug therapy 6 Amrik Aguiar. [facility] [address], [place], [address], [place]. tel:[phone] Referring Provider: Cosme Alcantara, [facility] [address], [place], [address]. tel:[phone] Office/Outpa tient Visit, Est [facility] , [address], [place], [address], [place] tel:[phone] [facility] , Rheumatoid arthritis (chief complaint)Mo nitor Chronic High Risk Meds (chief complaint) RA w/ rheumatoid factor of multiple sites w/o organ involvementO ther skilled nursing (current) drug therapyPares thesia of skin 6 Amrik Cosme. [facility] [address], [place], [address], [place]. tel:[phone] Referring Provider: Cosme Alcantara, [facility] [address], [place], [address]. [phone] Office/Outpa tient Visit, Est [facility] , [address], [place], [address], [place] [phone] [facility] , Rheumatoid arthritis (chief complaint)Mo nitor Chronic High Risk Meds (chief complaint) RA w/ rheumatoid factor of multiple sites w/o organ involvementO ther skilled nursing (current) drug therapyPares thesia of skin Oct- 6 mArik Aguiar. [facility] [address], [place], [address], [place]. tel:[phone] Referring Provider: Cosme Alcantara, [facility] [address], [place], [address]. tel:[phone] Office/Outpa tient Visit, Est [facility] , [address], [place], [address], [place] tel:[phone] [facility] , Rheumatoid arthritis (chief complaint) RA w/ rheumatoid factor of multiple sites w/o organ involvementO ther medical terminologist (current) drug therapy Fe 6 Amrik Aguiar. [facility] [address], [place], [address], [place]. tel:[phone] Referring Provider: Cosme Alcantara, [facility] [address], [place], [address]. tel:[phone] Office/Outpa tient Visit, Est [facility] , [address], [place], [address], [place] tel:[phone] [facility] , Inflammatory Polyarthropa thy (chief complaint) RA w/ rheumatoid factor of multiple sites w/o organ involvementO ther skilled nursing (current) drug therapy Amrik Aguiar. [facility] [address], [place], [address], [place]. tel:[phone] Referring Provider: Cosme Alcantara, [facility] [address], [place], [address]. tel:[phone] Office/Outpa tient Visit, Est [facility] , [address], [place], [address], [place] tel:[phone] [facility] , Inflammatory Polyarthropa thy (chief complaint) Inflammatory polyarthropa thyTherapeut ic Drug Monitoring Amrik Aguiar. [facility] [address], [place], [address], [place]. tel:[phone] Referring Provider: Cosme Alcantara, [facility] [address], [place], [address]. tel:[phone] Office/Outpa tient Visit, Est [facility] , [address], [place], [address], [place] tel:[phone] [facility] , Inflammatory Polyarthropa thy (chief complaint) Unspecified inflammatory polyarthropa thyTherapeut ic Drug Monitoring Amrik Aguiar. [facility] [address], [place], [address], [place]. tel:[phone] Referring Provider: Cosme Alcantara, [facility] [address], [place], [address]. tel:[phone] Office/Outpa tient Visit, Est [facility] , [address], [place], [address], [place] tel:[phone] [facility] , Inflammatory Polyarthropa thy (chief complaint) Unspecified inflammatory polyarthropa thyTherapeut ic Drug MonitoringLO NG-TERM (CURRENT) USE OF STEROIDS 4 Amirk Aguiar. [facility] [address], [place], [address], [place]. tel:[phone] Referring Provider: Cosme Alcantara, [facility] [address], [place], [address]. tel:[phone] Office/Outpa tient Visit, Est [facility] , [address], [place], [address], [place] tel:[phone] [facility] , Joint Pain (chief complaint) Pain in joint involving multiple sitesTherape utic Drug Monitoring 4 Amrik Aguiar. [facility] [address], [place], [address], [place]. tel:[phone] Referring Provider: Cosme Alcantara, [facility] [address], [place], [address]. tel:[phone] Office/Outpa tient Visit, New [facility] , [address], [place], [address], [place] tel:[phone] [facility] , Joint Pain (chief complaint) Pain in joint involving multiple sitesOther specified disorders of bursae and tendons in shoulder regionAbnorm al Liver Enzymes 4 Amrik Aguiar. [facility] [address], [place], [address], [place]. tel:[phone] Referring Provider: Cosme Alcantara, [facility] , [facility] [address], [place], [place], [address]. tel:[phone] Family History Family Member Type Diagnosis Age At Onset No Information Payers Payer name Insurance type Covered libertarian ID Authortikia stacy(s) Robin BROWN [id number] Social History Type Description Quantity Date Captured [...] this next on 08/12/2020. Related to Other skilled nursing (current) drug therapy The patient will hav e CBC, Cr, transaminases and albumin performed every 3 months. A lab order was provided to the patient. Related to Other skilled nursing (current) drug therapy Continue treatment t hrough [...] renal insufficiency. I defer to the patient's plastic boat patcher regarding the importance of decreasing or discontinuing [...] provided to the patient. Related to Other skilled nursing (current) drug therapy Continue current ant i-rheumatic [...] provided to the patient. Related to Other skilled nursing (current) drug therapy Continue current ant i-rheumatic [...] performed every 2-3 months. Related to Other medical terminologist (current) drug therapy Continue current ant i-rheumatic medications unchanged, pending results of today's updated laboratory studies. 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 Related to Other medical terminologist (current) drug therapy Continue current ant i-rheumatic [...] performed every 2-3 months. Related to Other medical terminologist (current) drug therapy Continue current ant i-rheumatic [...] performed every 2-3 months. Related to Other skilled nursing (current) drug therapy Than you sulfasalazi ne [...] again in one month. Related to Other medical terminologist (current) drug therapy The patient will hav e CBC, Cr, transaminases and albumin performed every 2-3 months in the near term. Related to Other medical terminologist (current) drug therapy Option to mildly fur [...]
--- NOTE | 2023-03-29 09:00 | CRLHL7_ITS ---
For Patients: As a result of the 21st Century Cures Act, medical imaging exams and procedure reports are released immediately into your electronic medical record. You may view this report before your referring provider. If you have questions, please contact your health care provider. Indication: HX LEFT ANKLE FX Technique: Noncontrast CT left ankle performed. Please note that all CT scans at this facility use dose modulation, iterative reconstruction, and/or weight-based dosing when appropriate to reduce radiation dose to as low as reasonably achievable. Comparison: Multiple plain film comparisons dated 02/20/2023, 01/30/2023, 01/04/2023, 12/19/2022, 11/30/2022, 10/26/2022. CT comparison 10/26/2022. Findings: Postoperative changes of intramedullary nakul placement extending from the tibial diaphysis through the tibiotalar joint, talus and calcaneus. Lucency surrounds the intramedullary nakul, measuring 3.1 millimeters in the distal tibia and up to 4.2 millimeters within the calcaneus. The inferior lateral calcaneal fixation screw is fractured. The superior lateral calcaneal fixation screw is intact as is the screw that traverses the calcaneus posterior-anterior and extends through the talus. Diffuse subcutaneous edema is present about the ankle with a joint effusion and innumerable fragmented osseous loose bodies. Periostitis along the distal tibial shaft again noted. Destruction of the distal tibial cortex and talar dome cortex noted. Chronic spurring at the posterior facet of the subtalar joint. The bones of the midfoot appear intact. Intact Achilles tendon and plantar fascia. Associated calcaneal spurs are noted. The lateral malleolus has been resected, as before. Impression: The inferior lateral calcaneal fixation screw about the distal intramedullary nakul is fractured. Lucency about the intramedullary nakul within the distal tibia, talus and calcaneus consistent with loosening. Soft tissue swelling, subcutaneous edema and joint effusion. Destructive changes about the tibiotalar joint concerning for chronic synovitis. Chronic osteomyelitis along the distal tibial shaft. Please note that all CT scans at this facility use dose modulation, iterative reconstruction, and/or weight-based dosing when appropriate to reduce radiation dose to as low as reasonably achievable. Dictated by Chucho Hernandez MD @ 03/29/2023 10:15:39 AM (Electronically Signed)
== END 2023-03-29 08:43 | disposition home or self-care (01) ==
LOC: CT 08:42
PROVIDERS: PCP Family Medicine; Visit Provider Orthopaedic Surgery
DX: S82.892A Other fracture of left lower leg, initial encounter for closed fracture (principal)
CPT/HCPCS: 73700

== ENCOUNTER 2023-12-11 11:00 | Outpatient (RCR) | payer BC, MEDICAID, SELFPAY ==
--- NOTE | 2023-10-12 09:22 | PT.OPE ---
PT [facility] PT [facility] Eval Start: 10/11/23 10:34 Freq: Status: Active Protocol: Document 10/11/23 15:19 CJT (Rec: 10/11/23 15:19 CJT [id number]) E-signed By Nikita Yanes PT Physical Therapy Outpatient Evaluation Insurance Information Recert Due Date 01/09/24 Insurance Name Medicaid Medical Diagnosis Residual limb strengthening Treating Diagnosis [id number] ? Activity, other involving strengthening exercises R26.2 - impaired gait Referring MD Alejandra Cadena Subjective Subjective Pt presents for residual limb strengthening evaluation. 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 Pt has been doing fairly well at home with his mobility. Uses a knee scooter and WC for all mobility at this time. Pt reports minimal pain in residual limb and does occasionally have phantom pain at night, but this has been manageable. Pts primary concern is his lack of endurance with mobility. Getting out of his car and retrieving his knee scooter from the back seat has been very challenging and exhausting for him. Pts has been very helpful for him at home. He has some help with bathing but otherwise has been modified I with all ADLs. Pt is scheduled to begin being fit for his first prosthetic next week. He reports that he wants to be able to climb into a tree stand to pak deer next fall. Pain Comments 2-10/30 Current Work Status Unemployed Preferred Name Roderick Precautions Therapy Limitations/Systems Review Not Limited Objective Other/Pertinent Objective R knee AROM: 0-4-103 L knee AROM: 0-0-116 R hip flexion AROM: 110 * limited by abdominal mass R hip extension AROM: 10 R hip abduction: 30 L hip flexion AROM: 110 * limited by abdominal mass L hip extension AROM: 10 L hip abduction: 22 R Hip Strength Flexion - 4+/5 MMT Abduction - 5/5 MMT Adduction - 5/5 MMT IR - 5/5 MMT ER - 5/5 MMT Extension - 5/5 MMT L Hip Strength Flexion - 5/5 MMT Abduction - 5/5 MMT Adduction - 5/5 MMT IR - 5/5 MMT ER - 5/5 MMT Extension - 5/5 MMT R knee Extension - 5/5 MMT R Knee Flexion - 5/5 MMT L knee Extension - 5/5 MMT L knee Flexion - 5/5 MMT R ankle DF - 5/5 MMT Gait: uses kneeling scooter Balance: pt unable to balance on R LE > 2 seconds without UE assist Assessment Assessment/Impression Roderick is a very pleasant 63 year old male who presents to our clinic for evaluation and treatment for residual limb strengthening to prepare for his prosthetic limb fitting. Pt demonstrates excellent strength this morning via manual muscle testing, but he struggles with his mobility at this time due to fair UE strength, poor balance, and his weight also contributes to the difficulty of his mobility. While I did not test Roderick's balance in standing or his strength in his R LE in a WB position, he consistently noted that mobility and transfers are very challenging for this time , as his balance is poor and he struggles to hop on one leg due to poor muscular endurance. This is most notable when he drives himself to his appointments and needs to exit his car, and retrieve his scooter from the back seat of his vehicle. Roderick would like to especially focus on his muscular endurance and balance while we strengthen his residual limb to prepare him for a prosthesis. The nature of the pts condition was explained and all questions were answered to the pts satisfaction. Skilled PT services are medically necessary to address deficits and return patient to highest level of function. Recommend physical therapy sessions 2/ week for 6-12 weeks. Pt agrees with this plan. Printout of HEP was given for I completion and pt gives verbal understanding of each exercise . Primary Functional Limitations Transfers, walking, stairs, balance Plan of Care Rehabilitation Potential Good Physical Therapy Goals STG - To be completed in 4 weeks: 1. Pt will demo ability to balance on R LE with no UE support for 10 seconds as indication of improved balance in standing position. 2. Pt will demo extension to 0 degrees in L knee to reduce risk of contracture in residual limb. LTG - To be completed in 8 weeks: 1. Pt to be I with HEP so that he may I manage progression of symptoms. 2. Pt will demo ability to hop on R LE x 10 ft without SOB so that he may retrieve scooter from back seat of vehicle with minimal fatigue. 3. Pt will demo ability to perform 10 partial SL squats on R LE with minimal balance assist from hands to indicate improved functional strength and balance in WB position. Treatment Plan/Direct Interventions Compression Garments,Gait Training,Joint Mobilization, Manual Therapy,Neuromuscular Re-ed,Self-Care/Home Management,Therapeutic Activities,Therapeutic Exercises Frequency/Duration 2/week for 6-12 weeks Patient Will Be Discharged From Therapy Completion of LTG(s),Skills Plateau,Independent w/HEP, Independently Progressing Evaluation Billing Untimed Code Treatment Minutes 50 PT Eval No Charge No Complexity Moderate Certification Information Initial Certification Date 10/11/23 Ending Certification Date 01/10/24 Provider Signature Shows Agreement With POC & Medical Necessity Physician Signature & Date Requested Please Sign/Date Here Physician Comment/Change : Physician NPI Number #
[2023-10-23 10:03] VITALS: BMI 45.2
[2023-10-25 10:23] VITALS: BMI 45.2
[2023-10-30 11:24] VITALS: BMI 45.2
[2023-11-01 11:42] VITALS: BMI 45.2
[2023-11-06 14:36] VITALS: BMI 45.2
[2023-11-08 11:11] VITALS: BMI 45.2
[2023-11-13 09:00] VITALS: BMI 45.2
[2023-11-20 10:35] VITALS: BMI 45.2
--- NOTE | 2023-11-20 13:37 | PT.OPDN ---
PT [facility] Daily Note PT [facility] Daily Note Start: 10/11/23 10:34 Freq: Status: Active Protocol: Document 11/20/23 10:14 CJT (Rec: 11/20/23 13:07 CJT [id number]) E-signed By Nikita Yanes, PT PT OP Daily Progress Note Visit Information Note Type Recert/Progress Note Visit Number 10 Insurance Authorized Visits tbd Physician Authorized Visits eval and treat Insurance Information Recert Due Date 01/09/24 Insurance Name Medicaid Medical Diagnosis Residual limb strengthening Treating Diagnosis [id number] ? Activity, other involving strengthening exercises R26.2 - impaired gait Referring MD Alejandra Cadena Subjective Subjective Pt struggling with his prosthetic. Has developed some sore spots and has only worn the prosthetic for about 2 hours since last treatment session. Preferred Name [email or web address] Home Exercise Home Exercise Comments [id number] Objective Other/Pertinent Objective R knee AROM: 0-4-103 L knee AROM: 0-0-116 R hip flexion AROM: 110 * limited by abdominal mass R hip extension AROM: 10 R hip abduction: 30 L hip flexion AROM: 110 * limited by abdominal mass L hip extension AROM: 10 L hip abduction: 22 R Hip Strength Flexion - 4+/5 MMT Abduction - 5/5 MMT Adduction - 5/5 MMT IR - 5/5 MMT ER - 5/5 MMT Extension - 5/5 MMT L Hip Strength Flexion - 5/5 MMT Abduction - 5/5 MMT Adduction - 5/5 MMT IR - 5/5 MMT ER - 5/5 MMT Extension - 5/5 MMT R knee Extension - 5/5 MMT R Knee Flexion - 5/5 MMT L knee Extension - 5/5 MMT L knee Flexion - 5/5 MMT R ankle DF - 5/5 MMT Gait: uses kneeling scooter Balance: pt unable to balance on R LE > 2 seconds without UE assist Patient Instructed in Risks/Benefits Yes Therapeutic Exercise Therapeutic Exercise Minutes (minutes) 10 Therapeutic Exercise: To Restore Knee extension eccentrics with Functional Status manual resistance x 15 Knee flexion eccentrics with manual resistance x 15 Knee flexion isometrics in sitting 10 x 10 seconds Manual Therapy Techniques Manual Therapy Minutes (minutes) 6 Manual Therapy Techniques Grade I-IV mobilizations to R tibiofemoral joint and patellofemoral joint in all directions to facilitate motion and reduce pain. Gentle STM to L residual limb and scar tissue to reduce scar tissue thickness and redcue tissue tension in L proximal gastroc. Gait & Stair Training Gait Training/Stairs Minutes (minutes) 24 Gait & Stair Training Comments Worked on stance and stepping through and back over prosthesis while in parallel bars. R arm on rail only 4x50 feet ambulation in wheeled walker working on weight shift laterally onto left leg and effort to create symmetry in stride length. Weight shifts in // bars with prosthetic. Treatment Minutes Timed Code Treatment Minutes 40 Total Treatment Time 40 Billing Units Gait Training/Stairs Units 2 Therapeutic Exercise Units 1 Assessment/Impression Assessment/Impression Pt fatigued at end of today's session but tolerates treatment well. proximal portion of anterior prosthetic was bothering Roderick's inner thigh today and he noted the skin was feeling irritated. Some very minimal bruising was noted today. Roderick has progressed well during his time in therapy. Although we are now dealing with different challenges now that Roderick has his prosthesis. It does seem that he may need a few more adjustments to his prosthesis to improve the fit. His strength is fair but his R knee pain is concerning as this is making transfers and ambulation difficult. His tolerance to ambulation is also quite poor due to lack of cardiovascular and muscular endurance. Recommend continued PT services to address deficits and return pt to highest level of function. Plan of Care Physical Therapy Goals STG - To be completed in 4 weeks: 1. Pt will demo ability to balance on R LE with no UE support for 10 seconds as indication of improved balance in standing position. 2. Pt will demo extension to 0 degrees in L knee to reduce risk of contracture in residual limb. LTG - To be completed in 8 weeks: 1. Pt to be I with HEP so that he may I manage progression of symptoms. 2. Pt will demo ability to hop on R LE x 10 ft without SOB so that he may retrieve scooter from back seat of vehicle with minimal fatigue. 3. Pt will demo ability to perform 10 partial SL squats on R LE with minimal balance assist from hands to indicate improved functional strength and balance in WB position. Daily Plan of Care Continue per POC Recertification Information Provider [employer] Sh[employer] Agreement With POC & Medical Necessity
[2023-11-22 12:26] VITALS: BMI 45.2
[2023-11-27 11:38] VITALS: BMI 45.2
[2023-11-29 12:31] VITALS: BMI 45.2
[2023-12-04 12:22] VITALS: BMI 45.2
[2024-02-28 12:35] VITALS: BMI 45.2
== END 2024-02-28 13:10 | disposition home or self-care (01) ==
PROVIDERS: PCP Family Medicine; Visit Provider Family Medicine
DX: I89.0 Lymphedema, not elsewhere classified (principal); Z51.89 Encounter for other specified aftercare
CPT/HCPCS: 97110; 97112; 97116; 97140; 97162; 97167; 97530; X5282

== ENCOUNTER 2024-02-07 06:57 | Outpatient (CLI) | payer MEDICAID, SELFPAY ==
--- OUTSIDE RECORDS SUMMARY | 2024-02-09 04:38 | XMS_ITS | Encounter Summary ---
Author Organization [facility] Address [address] [place] [address] Care Team Providers Care Pipe Setter Name Role Phone Ben Cadena MD Primary Care Provider [phone] Reason for Referral * Procedures (Routine) - Closed Specialty Diagnoses / Procedures Referred By Contac t Referred To Contact Vascular Access Surgery Diagnoses Stage 3b chronic kidney disease (HCC) Darion So MD [address] [place] [address] [facility] [address], [address] [place] [address] Referral ID Status Reason Start Date Expiration Date Visits Re quested Visits Authorized [id number] Closed 11/15/2023 11/14/2024 1 1 Reason for Visit * Reason Comments Follow-up Encounter Details Date Type Department Care Team (Latest Contact Info) Description 11/15/2023 10:30 AM EDT Office Visit [facility] [address] [place] [id number] Darion So MD [address] [place] [address] Stage 3b chronic kidney disease (HCC) (Primary Dx); Type 2 diabetes mellitus with diabetic chronic kidney disease (HCC); Anemia in chronic kidney disease; Hypertensive chronic kidney disease with stage 1 through stage 4 chronic kidney disease, or unspecified chronic kidney disease; Chronic systolic heart failure (HCC); Secondary hyperparathyroidism of renal origin (HCC); History of amputation of left leg through tibia and fibula (HCC); Morbid obesity (HCC); 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, not otherwise specified (HCC); Hypokalemia Social History Tobacco Use Types Packs/Day Years Used Date Smoking Tobacco: Former Cigarettes 2 26 0 07/23/1979 - 07/23/2005 Smokeless Tobacco: Never Alcohol Use Standard Drinks/Week Comments Yes 2 (1 standard drink = 0.6 oz pur e alcohol) Per week Sex and Gender Information Value Date Recorded Sex Assigned at Not on file Gender Identity Not on file Sexual Orientation Not on file documented as of this encounter Last Filed Vital Signs Vital Sign Reading Time Taken Comments Blood Pressure 132/78 11/15/2023 10:11 AM CDT Pulse 91 11/15/2023 10:11 AM CDT Temperature - - Respiratory Rate - - Oxygen Saturation 97% 11/15/2023 10:11 AM CDT Inhaled Oxygen Concentration - - Weight 127 kg (280 lb) 11/15/2023 10:11 AM CDT Height 167.6 cm (5' 6) 11/15/2023 10:11 AM CDT Body Mass Index 45.19 11/15/2023 10:11 AM CDT documented in this encounter Patient Instructions * Patient Instructions* Tash Bryant - 11/15/2023 10:30 AM CDT Roderick, Take the two potassium pills through the weekend, then go to your usual 1 tablet per day. Increase potassium in your diet like we discussed today. No medication changes. Get labs in 3 months and follow-up with me in 6 months with labs before. The information for your fistulagram is below: [facility] Fist[facility] Referral Date: Nov 26 2023 Time: 9am Location: [address] [place] [address] [address] [place] [address] Prep: Nothing to eat or drink after midnight the night before your procedure You will need to bring a bulk truck driver Please bring your insurance and ID cards to your appointment. Go to [address]. Claus So MD Welcome to [facility] Although we are experts in the care of patients with chronic kidney disease, we understand that youare the expert regarding your own life. Our goal is to work with you in providing the best possiblecare and to meet your individual needs. In addition to our Nephrologists, we have a team of Advanced Practice Providers (DANISH's) to help closely monitor our patients. Our DANISH's have specialized training and experience in caring for renal patients. If your Rn Transport deems it appropriate, you will be scheduled with an DANISH to manage your care. The keys to managing our patient's care include: Blood Pressure: Our goal is to keep your blood pressure 130/80 or lower. Heart and blood vessels: We want your LDL (bad cholesterol) to be below 100. Blood and Urine testing: Provides a more in depth 'picture' into the current renal status of a patient. If you smoke, it is important to quit. We want you to maintain good nutrition to keep your body healthy, so we do have a Renal Slip Cover Operator to help you with this. We encourage keeping a log of blood pressures for monitoring efficiency of any blood pressure medications. If you have diabetes, we want to keep your hemoglobin A1c at 7.0 or lower and your blood sugar 80 to 130. Avoid cold medications that include ephedrine, phenylpropolamine or pseudoephedrine (Sudafed, Actifed). If your doctor wants you to have a CT scan or MRI with IV contrast, be sure to let them know that you see a virtualization engineer for your kidney disease. Ask that they contact your virtualization engineer before this type of test is scheduled. When to call for your kidneys: Any new medications prescribed to you by other providers. Any new leg swelling or unexplained weight gain > 3-5 pounds. Consistently elevated Blood Pressure or dizziness (BP greater than 140/90) When to go to the Emergency Room: If you get dehydrated, or have excessive nausea, headache or vomiting, you may need to get IV fluids. If you cannot pass your urine completely (empty your bladder) as this may be a sign of an Acute Injury to your Kidney. Our Doctors, Advanced Practice Providers, nurses, and Renal Slip Cover Operator are here to provide you with the best renal care. We want you to feel free to call us when you have questions or concerns. To call the nurse at your virtualization engineer's office, please see the address and telephone number listed on your After Visit Summary. Thank you, The Physicians and staff at [facility]. UNDERSTANDING YOUR BLOOD PRESSURE & LAB RESULTS People who develop chronic kidney disease may have some or all of the following tests. This sheet is to help you understand the results: Blood Pressure: Achieving the blood pressure goals identified by your kidney doctor is very important in slowing the progression of your kidney disease. Always take blood pressure medications as directed. Other steps to follow may include cutting down on the amount of salt in your diet, losing excess weight and following a regular exercise program. Serum Creatinine: Creatinine is a waste product in your blood that comes from muscle activity. It is normally removed from your blood by your kidneys, but when kidney function slows down, the creatinine level rises. (Lab Normal Range: Male: 0.5--1.3, Female: 0.4--1.1) BUN (Blood Urea Nitrogen): BUN is a waste product in your blood that is normally removed from your body by the kidneys. When your kidney function slows down or if you become dehydrated, the BUN levels rise. (Lab Normal Range: 7--24) Glomerular Filtration Rate (GFR): Your GFR tells how much kidney function you have. It is calculated from your blood level of creatinine. (Lab Normal Range: Equal to or greater than 60) Potassium: Potassium is a mineral in your blood that helps your heart and muscles work properly, too much or too little potassium can be harmful to your heart and other muscles in your body. Potassium levels can be controlled by careful dietary restrictions. Our dietitian can help plan your diet toget the right amount of potassium. (Lab Normal Range: 3.5--5.1) Phosphorus: Failing kidneys do not remove phosphorus efficiently. A high phosphorus level can lead to weak bones. If your level is too high, your kidney doctor may ask you to reduce your intake of foods that are high in phosphorus and take medications called phosphate binders with your meals and snacks. (Lab Normal Range: 2.5--4.9) Calcium: Calcium is a mineral that is important for strong bones. To help balance the amount of calcium in your blood, your kidney doctor may ask you to take calcium supplements and Vitamin D. Take only the supplements and medications recommended by your kidney doctor. (Lab Normal Range: 8.5--10.1) Parathyroid Hormone (PTH): This hormone is a marker for your bone health. High levels may result from a poor balance of calcium and phosphorus in your body that can cause bone disease. Your kidney doctor may order a special prescription form of Vitamin D to help lower your PTH. (Lab Normal Range: 14--72) Hemoglobin: Hemoglobin is the part of red blood cells that carries oxygen from your lungs to all parts of your body. A low hemoglobin level indicates too few red blood cells, which is called anemia. Anemia can make you feel tired or have a low energy level. If you have anemia, you may need treatment with iron supplements or a hormone called erythropoietin (EPO). You will be referred to a [facility] Special[facility] ([facility]) to manage your anemia. (Lab Normal Range: Males: 14-18, Females: 12-16) TSAT and Serum Ferritin: Your TSAT (% iron saturation) and serum ferritin are measures of iron in your body. Abnormal values may indicate iron deficiency. Your kidney doctor may recommend iron supplements when needed. (Lab Normal Range: TSAT: 15--50; Serum Ferritin: 8--388) Cholesterol tests: Patients with kidney disease have an increased risk for cardiovascular disease (heart disease), therefore it is important that your cholesterol is well controlled. Dietary changes,exercise, and cholesterol lowering medication can lower cholesterol levels and decrease cardiovascular risk. Total Cholesterol: Cholesterol is a fat-like substance found in your blood. A high cholesterol level may increase your chance of having heart and circulation problems. For many patients, the target level is less than 200. HDL Cholesterol: HDL is a type of 'good' cholesterol that protects your heart. For many patients, the target level for HDL is above 40. LDL Cholesterol: LDL is a type of 'bad' cholesterol. A high LDL level may increase your chance of having heart and circulation problems. For many patients, a good level for LDL cholesterol is below 100, but some patients may have an even lower goal. Triglyceride: Triglyceride is a type of fat found in your body. A high triglyceride level along with high levels of total and LDL cholesterol may increase your chance of heart and circulation problems. For many patients, the target level is less than 150. HgbA1c: The HgbA1c is a marker of diabetes control for the past two to three months. Adequate diabetes control has been proven to slow the progression of kidney failure. (Lab Normal Range: Less than or equal to 5.6 if average glucose is less than or equal to 114.) Avoiding Non-Steroidal Anti-Inflammatory Drugs (NSAIDs) Taking medications called NSAIDS (list of names below) can damage your kidneys and we recommend youdo not take them. Because many patients do not recognize NSAIDs by their brand or generic names, there may be overlap in prescription and Over the Counter (OTC) use. NSAIDs are sold under many different brand names, so ask your pharmacist or health care provider if the medicines you take are safe to use. Below is a list of common NSAIDs: ibuprofen (Advil, Motrin, Midol, Wal-Profin) naproxen (Aleve, Naprosyn, Midol Extended Relief, Anaprox) meloxicam (Mobic), oxaprozin (Daypro), piroxicam (Feldene) celecoxib (Celebrex) indomethacin (Indocin) If you take OTC or prescription medicines for headaches, pain, fever, or colds, you may be taking NSAIDs. If you are unsure if a product contains an NSAID, ask your pharmacist or your health care provider. You can also look for product contents on the Drug Facts labels. documented in this encounter Progress Notes * Darion So MD - 11/15/2023 10:30 AM CDT Images from the original note were not included. Patient: Roderick Walker Date of : 1960 Chart: [id number] PCP: Ben Cadena MD Date of Service: 11/15/2023 Chief Complaint: CKD Stage 3b Subjective: Roderick is a 63 y.o. male here for follow-up. In the past, Roderick was an alcoholic, smoked, and also took 4 tabs of Aleve daily for years, and didn't care for himself well. This was prior to an NSTEMI in 09/2017, at which time he was cared for at [facility] and had three NORRIS's placed. Since that time, he has tried to make some changes in his health. He is no longer drinking alcohol, quit smoking years ago, is restricting salt in his diet somewhat, and also compliant with his medications and has much better understanding of his medications.DM is controlled. His GFR was as low as 17. He was referred for transplant. His BMI was 45+. He made changes to his diet. He followed with bariatric/wt loss clinic at [facility] and was seeing an/ssn 2 4 operator and counselor nathen and lost wt an was going to have gastric sleeve but decided against this in the end. He had AVF placed in Apr 2021 and follow-up showed good flow and ready to use when/if necessary. His renal function improved since that time, at times Cr even under 2.0 where it was well over 3 previously! Unfortunately, he has had a tough year. He had an ankle injury and required surgical repair and it didn't heal well, has hardware in place, got infected with staph, required prolonged IV abx, and finally BKA (L side). He is doing better in this regard, had prosthetic fit and is starting to use thisslowly. His potassium was lower than usual. He has not had diarrhea. No change in diuretic. He has not beeneating as much lately. He has taken two K tabs instead of one the last couple of days at my instruction since his lab was back. He denies chest pain or pressure, dyspnea, or orthopnea. No change in edema, uses compression on R leg. DM is controlled, A1C <7% on last check. BP is controlled reasonably with BP 130's/70's mostly. Social History: Lives in [place] He has [address] acres outside [place] and has miles of trails and he hunts on the land. 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 Anemia in chronic kidney disease ??? Stage 3b chronic kidney disease (HCC) ??? Type 2 diabetes mellitus with diabetic chronic kidney disease (HCC) ??? Hypertensive chronic kidney disease with stage 1 through stage 4 chronic kidney disease, or unspecified chronic kidney disease ??? Chronic systolic heart failure (HCC) ??? Secondary hyperparathyroidism of renal origin (HCC) ??? History of amputation of left leg through tibia and fibula (HCC) ??? Morbid obesity (HCC) ??? Acquired hypothyroidism ??? Chronic pain syndrome ??? 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 Coronary arteriosclerosis ??? Dyslipidemia ??? Seropositive rheumatoid arthritis (HCC) Review of Systems Patient denies chest pain, SOB at rest, nausea/vomiting, and fever/chills. Taking? Provider acetaminophen (TYLENOL) 325 MG tablet Lexy Healy MD Take 975 mg by mouth every 8 hours if needed. allopurinol (ZYLOPRIM) 300 MG tablet Lexy Healy MD TAKE 1 TABLET (300 MG) BY MOUTH ONCE DAILY. START AFTER 4 WEEKS OF 200 MG DAILY. aspirin (ST FRACISCO) 81 MG EC tablet Lexy Healy MD Take 81 mg by mouth 1 (one) time each day atorvastatin (LIPITOR) 40 MG tablet Lexy Healy MD Take 1 Tablet (40 mg) by mouth once daily. brimonidine (ALPHAGAN) 0.15 % ophthalmic solution Lexy Healy MD Place 1 Drop into both eyes two times daily. Calcium Acetate, Phos Binder, 667 MG capsule Lexy Healy MD TAKE 1 CAPSULE BY MOUTH 3 TIMES DAILY WITH MEALS. Calcium Polycarbophil (Fiber) 625 MG tablet Lexy Healy MD Take 625 mg by mouth two times daily. Cholecalciferol 50 MCG (2000 UT) capsule Lexy Healy MD TAKE 1 CAPSULE BY MOUTH ONCE DAILY. cyanocobalamin (VITAMIN B-12) 1000 MCG tablet Lexy Healy MD Take 1,000 mcg by mouth daily DULoxetine (CYMBALTA) [address] capsule Lexy Healy MD Take 1 capsule (30 mg) by mouth daily ERTAPENEM SODIUM IV Lexy Healy MD 1 g into PICC line every 24 hours for 21 days insulin aspart (NovoLOG FLEXPEN) 100 UNIT/ML injection Lexy Healy MD 30 Units Inject 30 units subcutaneous before breakfast, 24 units before lunch, and 30 units before supper. Plus sliding scale up to 100 units daily insulin degludec (TRESIBA FLEX TOUCH) 100 UNIT/ML injection Lexy Healy MD Inject 110 Units under the skin in the morning. KLOR-CON 20 MEQ CR tablet Lexy Healy MD TAKE 1 TABLET (20 MEQ) BY MOUTH DAILY levothyroxine (SYNTHROID, LEVOTHROID) 125 MCG tablet Lexy Healy MD Take 1 Tablet (125 mcg) by mouth before breakfast. metOLazone 2.5 MG tablet Lexy Healy MD TAKE TWO TABLETS BY MOUTH ON FRIDAYS metoprolol succinate XL (TOPROL-XL) 100 MG 24 hr tablet Lexy Healy MD take 1 tablet by oral route every day nitroglycerin (NITROSTAT) 0.4 MG SL tablet Lexy Healy MD Place 1 tablet under the tongue every 5 minutes if needed for Chest Pain (up to 3 doses). nortriptyline (PAMELOR) 25 MG capsule Lexy Healy MD Take 2 Capsules (50 mg) by mouth at bedtime. OLANZapine (ZyPREXA) 2.5 MG tablet Lexy Healy MD 2.5 mg in the morning. pantoprazole (PROTONIX) 40 MG EC tablet Lexy Healy MD take 1 tablet by oral route every day polyethylene glycol (GLYCOLAX) 17 GM/SCOOP powder Lexy Healy MD Take 17 g by mouth 2 times daily as needed for constipation pregabalin (LYRICA) 50 MG capsule Lexy Healy MD Take 1 Capsule (50 mg) by mouth two times daily. pyridoxine (B-6) 100 MG tablet Lexy Healy MD Take 100 mg by mouth once daily. rOPINIRole (REQUIP) 4 MG tablet Lexy Healy MD Take 1 Tablet (4 mg) by mouth two times daily. senna-docusate (PERICOLACE) 8.6-50 MG per tablet Lexy Healy MD Take 2 Tablets by mouth 2 times daily if needed. timolol (Betimol) 0.5 % ophthalmic solution Lexy Healy MD Place 1 Drop into both eyes two times daily. torsemide (DEMADEX) 20 MG tablet Lexy Healy MD TAKE 4 TABLETS (80 MG) BY MOUTH TWO TIMES DAILY. triamcinolone (KENALOG) 0.5 % cream Lexy Healy MD Apply topically 3 (three) times a day Trulicity 0.75 MG/0.5ML solution pen-injector ProviderLexy MD Patient not taking: Notes: Allergies Allergen Reactions ??? Allopurinol ??? Amlodipine Swelling Edema on 10mg, ok on 5mg. Edema on 10mg, ok on 5mg. Edema on 10mg, ok on 5mg. ??? Milk (Cow) ??? Quinolones Other (see comments) Qtc prolonged ??? Shellfish-Derived Products Hives and Itching Intermittently per pt report. ??? Topiramate Hives and Rash Physical Exam BP 132/78 (BP Location: Right forearm, Patient Position: Sitting, BP Cuff Size: Adult) Pulse 91 Ht 5' 6 (1.676 m) Wt 280 lb (127 kg) SpO2 97% BMI 45.19 kg/m?? CONSTITUTIONAL: appears well today EYES: pupils equal, sclerae not icteric. RESPIRATORY: Clear to auscultation bilaterally, nl effort CARDIOVASCULAR: Regular rate and rhythm, no murmurs. Trace edema R leg under compression, BKA on L without significant edema above wrap that he has on GASTROINTESTINAL: bowel sounds active, not distended PSYCHIATRIC: Alert and pleasant INTEGUMENT: No visible rash on exposed skin Chemistry and Bone Mineral Lab Units 11/12/23 0000 09/07/23 0000 SODIUM mEq/L 138 143 POTASSIUM mEq/L 3.1* 98 CHLORIDE 93* 27 CO2 mmol/L 32* 18 CALCIUM mg/dL 9.7 9.4 9.4 PHOSPHORUS mg/dL -- 3.4 PTH pg/mL -- 52.4 GLUCOSE mg/dL 149* 104* ALBUMIN g/dL -- 4.3 BUN mg/dL 52* 41* CREATININE mg/dL 2.01* 1.95* EGFR 37* 38* CBC and Iron Studies Lab Units 09/07/23 0000 HEMOGLOBIN g/dL 12.6* MCV 101* FERRITIN 223.0 No lab exists for component: GLUCOSEUR, BILIRUBINUR, SPECGRAV, RBCUR, LEUKOCYTESUR, NITRITE Imaging: Renal ultrasound 09/2017: FINDINGS: The right kidney measures 12.2 x 5.5 x 7.0 cm. There is no hydronephrosis or solid mass. There is no perinephric fluid collection. There is no significant cortical atrophy in the right kidney. Echogenicity and echotexture in the renal parenchyma are within normal limits. The left kidney appear similar to the contralateral side, measuring 12.8 x 6.4 x 6.7 cm. No hydronephrosis, solid mass, or perinephric fluid collection. Urinary bladder measures 9.4 x 11.5 x 5.4 cm. It is normal on grayscale imaging. IMPRESSION: Normal retroperitoneal ultrasound. 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 He used NSAID's heavily prior to 09/2017 aswell, may have contributed to JEANINE at the time. -eGFR was as low as 17, referred for transplant, needed to lose weight. Target wt <220 lbs (BMI <35), had lost 50 lbs! Was scheduled for gastric sleeve procedure, but he cancelled this and losing weight without. -Cr has improved and eGFR is now just over 30. GFR may be overestimated with BKA, will do Cystatin C with GFR prior to next visit -He will work on low salt diet, higher potassium diet for low potassium, and healing infection and ankle and we will follow renal function with this and home BP and he will send this to me in [facility] -AVF was placed in Apr 2021, ready to use if/when necessary although anastamosis sounds like possible stenosis and may need fistulagram before first use -He is interested in home hemodialysis if dialysis is necessary prior to Tx in future -No SGLT2i at this time given DM controlled and no proteinuria or albuminuria and stable renal function HTN with hypertensive CKD - stable Good control on current medications. BP was on low side -> I stopped lisionpril in 03/2021. BP reasonably controlled on Toprol XL and diuretic. Monitor. 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 On ASA, plavix, BB, ACEI and diuretic for CAD/CHF. Follows with cardiology. -Continue same med regimen -Continue low salt diet -TTE shows nl LVEF with pacer, saw Dr. Harvey this year and f/u annually recommended with cardiology Anemia in CKD stage 3b - stable Hgb stable, Monitor. He is not requiring HALLE. Check Hgb every 6 months. Sec renal hyperparathyroidism - stable Ca and phos and PTH at goal. -Continue calcium acetate with meals -Monitor labs Type 2 DM with diabetic CKD - stable DM controlled with A1C 7.6% 10/2023. Urine alb:Cr suppressed at 28 mg/g as of 11/12/23. -Continue same medication -Trend A1C with PCP, annual urine Alb:Cr Morbid Obesity - stable BMI currently 45. would benefit from weight loss as suggested above, gastric sleeve cancelled as hewas doing well on his own and had lost 50 lbs. Weight gain back with immobility issues related to ankle surgery/infection etc. He plans to get more active again with prosthetic. RA - stable Has been off sulfasalazine for years now. Sx unchanged. F/u with rheumatology as needed. Hypokalemia May be diet related, no other change recently, generally in normal range on potassium 20 meq daily in setting of diuretic use. -Take 40 meq potassium daily through next 5 days, then back to 20 meq daily -Increase potassium in diet, discussed in detail today -Trend labs every 3 months Hx of below the knee amputation - stable Continue prosthesis training. Total time spent on visit today 50 minutes with 25 minutes face to face with patient. Return in about 6 months (around 05/16/2024) for follow-up with . Darion So MD [facility] documented in this encounter Plan of Treatment Upcoming Encounters Date Type Department Care Team (Late st Contact Info) Description 02/14/2024 Orders Only [facility] [place] [address] Darion So MD [address] [place] [phone] Stage 3b chronic kidney disease (HCC) 03/03/2024 9:00 AM EDT Office Visit [facility] [place] [place] [address] Darion So MD [address] [place] [address] Scheduled Orders Name Type Priority Associated Diagnoses Orde r Schedule Basic metabolic panel Lab Routine Stage 3b chronic kidney disease (HCC) Expected: 02/14/2024 (Approximate), Expires: 12/14/2024 Renal function panel Lab Routine Stage 3b chronic kidney disease (HCC) Expected: 04/28/2024 (Approximate), Expires: 10/21/2024 PTH, intact Lab Routine Stage 3b chronic kidney disease (HCC) Expected: 04/28/2024 (Approximate), Expires: 10/21/2024 Hemoglobin Lab Routine Stage 3b chronic kidney disease (HCC) Expected: 04/28/2024 (Approximate), Expires: 10/21/2024 Scheduled Referrals Name Type Priority Associated Diagnoses Order Schedule Amb[facility] Ref[facility] Outpatient Referral Routine Stage 3b chronic kidney disease (HCC) Expected: 11/15/2023, Expires: 12/14/2024 documented as of this encounter Visit Diagnoses Diagnosis Stage 3b chronic kidney disease (HCC)- Primary Type 2 diabetes mellitus with diabetic chronic kidney disease (HCC) Anemia in chronic kidney disease Hypertensive chronic kidney disease with stage 1 through stage 4 chronic kidney disease, or unspecified chronic kidney disease Chronic systolic heart failure (HCC) Chronic systolic heart failure Secondary hyperparathyroidism of renal origin (HCC) Secondary hyperparathyroidism of renal origin History of amputation of left leg through tibia and fibula (HCC) Morbid obesity (HCC) Morbid obesity 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, not otherwise specified (HCC) Hypokalemia Stage 3b chronic kidney disease (HCC) documented in this encounter Care Teams Pipe Setter Relationship Specialty Start Date End Date Ben Cadena MD [address] [place] [address] PCP - General Family Medicine 09/05/23 documented as of this encounter
--- OUTSIDE RECORDS SUMMARY | 2024-02-09 04:38 | XMS_ITS | Encounter Summary ---
Author Organization [facility] Address [address] [place] [address] Care Team Providers Care Maintenance Of Way Clerk Name Role Phone Ben Cadena MD Primary Care Provider [phone] Reason for Visit * Reason Onset Date Comments Med Refill 12/27/2023 Encounter Details Date Type Department Care Team (Late Contact Info) Description 12/27/2023 Refill [facility] [address] [place] [address] Patricia Bradley, RN [address] [place] [address] Social History Tobacco Use Types Packs/Day Years [...] on file documented as of this encounter Miscellaneous Notes * Telephone Encounter - Patricia Bradley RN - 12/27/2023 9:36 AM CDT Metolazone has not been refilled in [facility] before. RTC 03/03 documented in this encounter Plan of Treatment Upcoming Encounters Date Type Department Care Team (Late Contact Info) Description 02/14/2024 Orders Only [facility] [place] [place] [address] Darion So MD [address] [place] [address] Stage 3b chronic kidney disease (HCC) 03/03/2024 9:00 AM EDT Office Visit [facility] [place] [place] [address] Darion So MD [address] [place] [address] documented as of this encounter Visit Diagnoses Not on filedocumented in this encounter Care Teams Maintenance Of Way Clerk Relationship Specialty Start Date End Date Ben Cadena MD [address] [place] [address] PCP - General Family Medicine 09/05/23 documented as of this encounter
--- OUTSIDE RECORDS SUMMARY | 2024-02-09 04:38 | XMS_ITS | Encounter Summary ---
Author Organization [facility] [place] Address [address] [place] [address] Care Team Providers Care House Calls Nurse Name Role Phone Ben Cadena MD Primary Care Provider [phone] Encounter Details Date Type Department Care Team (Late Contact Info) Description 01/31/2024 Telephone [facility] [place] [address] [place] [address] Tash Bryant [address] [place] [address] Social History Tobacco Use Types Packs/Day Years [...] encounter Miscellaneous Notes * Telephone Encounter - Tash Bryant - 01/31/2024 11:08 AM CDT Called patient to remind them to set up appointment for 3 month labs. Pt voiced understanding. Labsfaxed to Preet Curtis documented in this encounter Plan of Treatment Upcoming Encounters Date Type Department Care Team (Late st Contact Info) Description 02/14/2024 Orders Only [facility] [place] [address] Darion So MD [address] [place] [address] Stage 3b chronic kidney disease (HCC) 03/03/2024 9:00 AM EDT Office Visit [facility] [place] [place] [address] Darion So MD [address] [place] [address] documented as of this encounter Visit Diagnoses Not on filedocumented in this encounter Care Teams House Calls Nurse Relationship Specialty Start Date End Date Ben Cadena MD [address] [place] [address] PCP - General Family Medicine 09/05/23 documented as of this encounter
--- OUTSIDE RECORDS SUMMARY | 2024-02-09 04:38 | XMS_ITS | Encounter Summary ---
Author Organization [facility] [place] Address [address] [place] [address] Care Team Providers Care Flour Tester Name Role Phone Ben Cadena MD Primary Care Provider [phone] Encounter Details Date Type Department Care Team (Late st Contact Info) Description 11/26/2023 Documentation Only [facility] [place] [address] [place] [address] No, Pcp Social History Tobacco Use Types Packs/Day Years [...] on file documented as of this encounter Plan of Treatment Upcoming Encounters Date Type Department Care Team (Late st Contact Info) Description 02/14/2024 Orders Only [facility] [place] [address] Darion So MD [address] [place] [address] Stage 3b chronic kidney disease (HCC) 03/03/2024 9:00 AM EDT Office Visit [facility] [place] [place] [address] Darion So MD [address] [place] [address] documented as of this encounter Visit Diagnoses Not on filedocumented in this encounter Care Teams Flour Tester Relationship Specialty Start Date End Date Ben Cadena MD [address] [place] [address] PCP - General Family Medicine 09/05/23 documented as of this encounter
--- OUTSIDE RECORDS SUMMARY | 2024-02-09 04:38 | XMS_ITS | Clinical Summary ---
Author Organization [facility] [place] Address [address] [facility] [place] [address] Phone Care Team Providers Care Contract Implementation Analyst Name Role Phone Ben Cadena MD Primary Care Provider [phone] Allergies Active Allergy Reactions Criticality Noted Date Comments Allopurinol 03/08/2022 Amlodipine Swelling 08/09/2017 Edema on 10mg, ok on 5mg. Edema on 10mg, ok on 5mg. Edema on 10mg, ok on 5mg. Milk (Cow) 03/08/2022 Quinolones Other (see comments) 07/02/2023 Qtc prolonged Shellfish-Derived Products Hives,Itching 08/06/2023 Intermittently per pt report. Topiramate Hives,Rash Low 12/13/2020 Medications Medication Sig Dispensed Refills Start Date End Date Status OLANZapine (ZyPREXA) 2.5 MG tablet 2.5 mg in the morning. 07/10/2023 Active nortriptyline (PAMELOR) 25 MG capsule Take 2 Capsules (50 mg) by mouth at bedtime. 08/18/2019 Active pantoprazole (PROTONIX) 40 MG EC tablet take 1 tablet by oral route every day Active nitroglycerin (NITROSTAT) 0.[address] 1 tablet under the tongue every 5 minutes if needed for Chest Pain (up to 3 doses). 10/02/2017 Active levothyroxine (SYNTHROID, LEVOTHROID) 125 MCG tablet Take 1 Tablet (125 mcg) by mouth before breakfast. 07/11/2023 Active metoprolol succinate XL (TOPROL-XL) 100 MG 24 hr tablet take 1 tablet by oral route every day Active polyethylene glycol (GLYCOLAX) 17 GM/SCOOP powder Take 17 g by mouth 2 times daily as needed for constipation 04/14/2023 Active timolol (Betimol) 0.5 % ophthalmic solution Place 1 Drop into both eyes two times daily. 09/15/2017 Active senna-docusate (PERICOLACE) 8.6-50 MG per tablet Take 2 Tablets by mouth 2 times daily if needed. 06/13/2023 Active torsemide (DEMADEX) 20 MG tablet TAKE 4 TABLETS (80 MG) BY MOUTH TWO TIMES DAILY. 03/12/2019 Active rOPINIRole (REQUIP) 4 MG tablet Take 1 Tablet (4 mg) by mouth two times daily. 02/22/2022 Active pregabalin (LYRICA) 50 MG capsule Take 1 Capsule (50 mg) by mouth two times daily. 07/10/2023 Active KLOR-CON 20 MEQ CR tablet TAKE 1 TABLET (20 MEQ) BY MOUTH DAILY 04/27/2023 Active pyridoxine (B-6) 100 MG tablet Take 100 mg by mouth once daily. Active Calcium Acetate, Phos Binder, 667 MG capsule TAKE 1 CAPSULE BY MOUTH 3 TIMES DAILY WITH MEALS. 12/05/2022 Active brimonidine (ALPHAGAN) 0.15 % ophthalmic solution Place 1 Drop into both eyes two times daily. Active Calcium Polycarbophil (Fiber) 625 MG tablet Take 625 mg by mouth two times daily. Active allopurinol (ZYLOPRIM) 300 MG tablet TAKE 1 TABLET (300 MG) BY MOUTH ONCE DAILY. START AFTER 4 WEEKS OF 200 MG DAILY. 08/23/2023 Active acetaminophen (TYLENOL) 325 MG tablet Take 975 mg by mouth every 8 hours if needed. 06/13/2023 Active atorvastatin (LIPITOR) 40 MG tablet Take 1 Tablet (40 mg) by mouth once daily. 08/18/2019 Active Cholecalciferol 50 MCG (2000 UT) capsule TAKE 1 CAPSULE BY MOUTH ONCE DAILY. 04/16/2019 Active insulin aspart (NovoLOG FLEXPEN) 100 UNIT/ML injection 30 Units Inject 30 units subcutaneous before breakfast, 24 units before lunch, and 30 units before supper. Plus sliding scale up to 100 units daily 08/29/2023 Active ERTAPENEM SODIUM IV 1 g into PICC line every 24 hours for 21 days Active DULoxetine (CYMBALTA) [address] capsule Take 1 capsule (30 mg) by mouth daily 07/10/2023 Active cyanocobalamin (VITAMIN B-12) 1000 MCG tablet Take 1,000 mcg by mouth daily Active triamcinolone (KENALOG) 0.5 % cream Apply topically 3 (three) times a day Active Trulicity 0.75 MG/0.5ML solution pen-injector 10/22/2023 Active insulin degludec (TRESIBA FLEX TOUCH) 100 UNIT/ML injection Inject 110 Units under the skin in the morning. 10/29/2023 Active aspirin (ST FRACISCO) 81 MG EC tablet Take 81 mg by mouth 1 (one) time each day Active metOLazone 2.5 MG tablet Take 2 tablets (5 mg total) by mouth per week On Fridays. 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 Chronic pain syndrome 09/17/2019 Coronary arteriosclerosis 09/17/2019 Dyslipidemia 09/17/2019 Anemia in chronic kidney disease 11/28/2018 Acquired hypothyroidism 06/09/2016 Seropositive rheumatoid arthritis 06/09/2016 Resolved Problems Problem Noted Date Diagnosed Date Resolved Date Type 2 diabetes mellitus 09/14/2023 Chronic kidney disease, Stage V 01/05/2023 11/15/2023 Encounters Date Type Department Care Team Description 01/31/2024 Telephone [facility] [address] [place] [phone] Tash Bryant 12/27/2023 Refill [facility] [address] [place] [address] Patricia Bradley RN 11/26/2023 Documentation Only [facility] [address] [place] [phone] NoKaden 11/15/2023 10:30 AM EDT Office Visit [facility] [place] [address] [place] [phone] Darion So MD Stage 3b chronic kidney disease (HCC) (Primary [...] Morbid obesity (HCC); Atherosclerotic heart disease of [place] coronary artery with angina pectoris, not otherwise specified (HCC); Hypokalemia 11/13/2023 Telephone [facility] [address] [place] [address] Rebecca Ambrocio from Last 3 Months Family History Medical History Relation Comments Diabetes Father COPD Mother Kidney disease Paternal Grandmother Friedreich's ataxia Sister Relation Status Comments Father Mother Paternal Grandmother Sister Social History Tobacco Use Types Packs/Day Years Used Date Smoking Tobacco: Former Cigarettes 2 26 0 07/23/1979 - 07/23/2005 Smokeless Tobacco: Never Alcohol Use Standard Drinks/Week Comments Yes 2 (1 standard drink = 0.6 oz pur e alcohol) Per week Sex and Gender Information Value Date Recorded Sex Assigned at Not on file Gender Identity Not on file Sexual Orientation Not on file Last Filed Vital Signs Vital Sign Reading [...] Mass Index 45.19 11/15/2023 10:11 AM CDT Plan of Treatment Upcoming Encounters Date Type Department Care Team (Late st Contact Info) Description 02/14/2024 Orders Only [facility] [place] [address] [place] [place] [address] Darion So MD [address] [place] [phone] Stage 3b chronic kidney disease (HCC) 03/03/2024 9:00 AM EDT Office Visit [facility] [place] [address] [place] [address] Darion So MD [address] [place] [address] Health Maintenance Due Date Last Done Comments Pneumococcal Vaccine: Pediatrics (0 to 5 Years) and At-Risk Patients (6 to 64 Years) (1 of 2 - PCV) [birth year]04/1966 Colorectal Cancer Screening: Annual FOBT 2010 Colorectal Cancer Screening: Colonoscopy 2010 Colorectal Cancer Screening: Sigmoidoscopy 2010 Diabetes: Ophthalmology Exam 09/05/2023 Diabetes: Pedal Pulse Checked 09/05/2023 Diabetes: Sensory Foot Exam 09/05/2023 Diabetes: Visual Foot Exam 09/05/2023 Diabetes: Hemoglobin A1C 02/11/2024 024, 06/28/2023, 06/10/2023, Additional history exists Influenza Vaccine (#1) 2024 Hepatitis B Vaccine Aged Out No longe r eligible based on patient's age to complete this topic Procedures Procedure Name Priority Date/Time Associated Diagnosis Comments URINE ALBUMIN / CREATININE RATIO Routine 11/12/2023 Stage 3b chronic kidney disease (HCC) BASIC METABOLIC PANEL Routine 11/12/2023 Stage 3b chronic kidney disease (HCC) from Last 3 Months Results * Urine Albumin / Creatinine Ratio (11/12/2023) Albumin, Urine 15.4 mg/dL [facility] Creatinine, Urine Random 0.55 mg/dL [facility] Alb/Creat Ratio, Ur 28.0 mg/g Creat [facility] Urine (Urine, Clean Catch) 11/12/2023 Darion So MD LAB URINE ORDERABLES [facility] * (ABNORMAL) Basic metabolic panel (11/12/2023) Sodium 138 mEq/L [facility] Potassium 3.1(L) mEq/L [facility] Chloride 93(L) [facility] Carbon Dioxide 32(H) mmol/L [facility] Calcium 9.7 mg/dL [facility] BUN 52(H) mg/dL [facility] Creatinine 2.01(H) mg/dL [facility] Glucose 149(H) mg/dL [facility] eGFR 37(L) [facility] Anion Gap 13 [facility] Blood (Blood, Venous) 11/12/2023 Darion So MD LAB BLOOD ORDERABLES [facility] from Last 3 Months Care Teams Contract Implementation Analyst Relationship Specialty Start Date End Date Ben Cadena MD [address] [place] [address] PCP - General Family Medicine 09/05/23
--- OUTSIDE RECORDS SUMMARY | 2024-02-09 04:39 | XMS_ITS | Referral Summary ---
Author Organization [facility] Address [address] [place] [address] Care Team Providers Care Lead Consultant Name Role Phone Elsewhere, Pcp Primary Care Provider Unavailabl e Source Comments Patient records contain information from all sites at [facility]. For routine questions regarding patient records, call [phone] during business hours, M-F 8:00 AM - 5:00 PM Central Time. Record requests for emergency care only can be directed to [phone] at any time.[facility] Encounters Date Type Department Care Team Description 02/05/2024 12:41 AM CDT - 02/05/2024 12:20 PM CDT Emergency [facility] [address] [place] [address] Hira Child M.D. Guanaco Hart M.D. Hypoxia (Primary Dx); Shortness Of Breath; Illness Febrile; Diabetes Mellitus Type 2 (HCC); Acute Respiratory Failure With Hypoxia (HCC) Discharge Disposition: Left Against Medical Advice or Discontinued Care from Last 3 Months Allergies Active Allergy Reactions Criticality Noted Date Comments Allopurinol Rash Medium 09/13/2019 Amlodipine Edema (Reselect Reaction),Swelling 08/09/2017 Edema on 10mg, ok on 5mg. Edema on 10mg, ok on 5mg. Topiramate Hives (Reselect Reaction),Rash 12/13/2020 Medications Medication Sig Dispensed Refills Start Date End Date Status acetaminophen (TYLENOL) 500 mg tablet Take 1,000 mg by mouth every 6 (six) hours as needed. Active allopurinoL (ZYLOPRIM) 100 mg tablet Take 1 tablet by mouth daily. 02/24/[address] tablet Take 81 mg by mouth daily. 06/09/2016 Active atorvastatin (LIPITOR) 40 mg tablet Take 1 tablet by mouth daily. 08/18/2019 Active brimonidine (ALPHAGAN) 0.2 % ophthalmic solution Administer 1 drop into affected eye(s) 2 (two) times a day. 04/13/2014 Active buprenorphine-nalo xone (SUBOXONE) 2-0.5 mg per SL tablet Place 1 tablet under the tongue daily. Not taking 02/10/2022 Active calcium acetate,phosphat bind, (PHOSLO) 667 mg (169 mg calcium) capsule Take 1 capsule by mouth 3 (three) times a day. 12/26/2021 Active cholecalciferol (VITAMIN D3) 50 mcg (2,000 Unit) capsule Take 1 capsule by mouth daily. 04/16/2019 Active cyanocobalamin (VITAMIN B12) 1,000 mcg tablet Take 1,000 mcg by mouth daily. Active dulaglutide (Trulicity) 3 mg/0.5 mL injection Inject 3 mg under the skin once a week. 01/02/2022 Active DULoxetine (CYMBALTA) [address] capsule Take 1 capsule by mouth daily. 02/24/2022 Active insulin degludec (Tresiba FlexTouch U-200) 200 unit/mL (3 mL) injection Inject 75 Units under the skin daily. 07/30/2019 Active levothyroxine (SYNTHROID, LEVOTHROID) 100 mcg tablet Take 100 mcg by mouth daily. 08/18/2019 Active metOLazone (ZAROXOLYN) 2.5 mg tablet TAKE TWO TABLETS BY MOUTH ON FRIDAYS. REFILL THRU PRIMARY OR NEPHROLOGY 06/10/2019 Active metoprolol succinate (TOPROL-XL) 100 mg 24 hr tablet Take 1 tablet by mouth daily. 04/27/2021 Active nitroglycerin (NITROSTAT) 0.[address] 0.4 mg under the tongue as needed. 10/02/2017 Active nortriptyline (PAMELOR) 25 mg capsule Take 3 capsules by mouth at bedtime. 08/18/2019 Active pantoprazole (PROTONIX) 40 mg EC tablet Take 40 mg by mouth daily. 05/13/2019 Active pregabalin (LYRICA) 100 mg capsule Take 100 mg by mouth 2 (two) times a day. 08/04/2019 Active pyridoxine, vitamin B6, (B-6) 100 mg tablet Take 1 tablet by mouth daily. Active rOPINIRole (REQUIP) 4 mg tablet 1/2-One po bid 02/22/2022 Active tapentadol HCl (TAPENTADOL ORAL) Take by mouth. unsure Active timolol (TIMOPTIC) 0.5 % ophthalmic solution Administer 1 drop into affected eye(s). 09/15/2017 Active torsemide (DEMADEX) 20 mg tablet Take 80 mg by mouth 2 (two) times a day. 03/12/2019 Active HYDROmorphone (DILAUDID) 2 mg tablet Take 2 mg by mouth every 3 (three) hours as needed for pain. 1-2 tablets every 4 hours as needed for pain Active insulin aspart U-100 (NovoLOG FlexPen) 100 unit/mL (3 mL) injection Inject 20 Units under the skin 3 (three) times a day with meals. Active cefadroxil (Duricef) 500 mg capsule Take 1 capsule (500 mg total) by mouth 2 (two) times a day for 7 days. 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 Overview (12/12/2016): Polyarthropathy Inflammatory Diabetes Mellitus Type 2 12/02/2012 Hypertension 10/24/2012 Overview (12/12/2016): Hypertension Essential (401.9) Diabetes Mellitus Type 2 10/24/2012 Overview (12/12/2016): Diabetes Mellitus Type 2 (250.00) Social History Tobacco Use Types Packs/Day Years Used Date Smoking Tobacco: Former Cigarettes Tobacco Cessation:Counseling Given: Not Answered Alcohol Use Standard Drinks/Week Comments Yes 0 (1 standard drink = 0.6 oz pur e alcohol) Occationally Nutrition Answer Date Recorded Nutrition: EVOO Fat Source 13 12/30 Nutrition: Servings of Fruits/Vegetables per Day Not on file 12/30/2018 Dental Answer Date Recorded Dental: Regular Dentist Unknown 03/29/20 Sex and Gender Information Value Date Recorded Sex Assigned at Not on file Gender Identity Not on file Sexual Orientation Not on file Last Filed Vital Signs Vital Sign Reading Time Taken Comments Blood Pressure 152/73 02/05/2024 12:00 PM CDT Pulse 102 02/05/2024 12:00 PM CDT Temperature 37.8 ??C (100 ??F) 02/05/2024 11:15 AM CD T Respiratory Rate 22 02/05/2024 11:45 AM CDT Oxygen Saturation 93% 02/05/2024 12:00 PM CDT Inhaled Oxygen Concentration - - Weight 131 kg (289 lb) 02/05/2024 12:49 AM CDT Height 167.6 cm (5' 6) 06/09/2023 11:28 AM 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 MAKING 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 TENDER Body Mass Index 46.65 06/09/2023 11:28 AM MAT MAKING MACHINE TENDER Plan of Treatment Not on file Procedures Procedure Name Priority Date/Time Associated Diagnosis Comments TROPONIN T, 6H, 5TH GEN, P Timed 02/05/2024 8:15 AM CDT BACTERIA / SONI CULTURE, BLOOD STAT 02/05/2024 7:12 AM CDT BACTERIA / SONI CULTURE, BLOOD STAT 02/05/2024 7:05 AM CDT TROPONIN T, 2H/6H REFLEX, 5TH GEN, P Timed 02/05/2024 4:04 AM CDT DX CHEST AP OR PA AND LATERAL 2 VIEWS RAD - Semiurgent (Fast; most ED patients; some inpatients) 02/05/2024 3:49 AM CDT SARS CORONAVIRUS 2, PCR RAPID, V STAT 02/05/2024 2:32 AM CDT BASIC METABOLIC PANEL (BMP), POCT, B Routine 02/05/2024 2:09 AM CDT VBG WITH LACTATE, POCT, B STAT 02/05/2024 2:08 AM CDT MORPHOLOGY EVALUATION STAT 02/05/2024 2:08 AM CDT NT-PRO B-TYPE NATRIURETIC PEPTIDE (BNP), S STAT 02/05/2024 2:08 AM CDT TROPONIN T, BASELINE, 5TH GEN, P STAT 02/05/2024 2:08 AM CDT LACTATE, B/P STAT 02/05/2024 2:08 AM CDT COMPREHENSIVE METABOLIC PANEL, S/P STAT 02/05/2024 2:08 AM CDT CBC WITH DIFFERENTIAL, B STAT 02/05/2024 2:08 AM CDT ECG STAT 02/05/2024 1:19 AM CDT PULSE OXIMETRY, CONTINUOUS STAT 02/05/2024 1:11 AM CDT HEMOGLOBIN A1C, B STAT 05/30/2023 8:5 4 AM MAT MAKING MACHINE TENDER Osteomyelitis Foot (HCC) Cellulitis Methicillin Resistant Staphylococcus Aureus Chronic Kidney Disease Stage 5 Glomerular Filtration Rate Less Than 15 (HCC) LIPID PANEL, S Routine 12/16/2015 8:40 AM CDT THYROID-STIMULATING HORMONE-SENSITIVE (S-TSH) Routine 12/16/2015 8:40 AM CDT ALBUMIN, RANDOM, U Routine 10/01/2013 8: 50 AM CDT from Last 3 Months or Most Recently Relevant to Health Maintenance Results * (ABNORMAL) Troponin T, 6h, 5th Gen (02/05/2024 8:15 AM CDT) Troponin T, 6 hr, 5th gen 44(H) <=15 ng/L 02/05/2024 8:37 AM CDT NPRG 6H Delta 9 ng/L 02/05/2024 8:37 AM CDT NPRG 6H Delta Interp Not Changing 02/05/2024 8:37 AM CDT NPRG Blood 02/05/2024 8:15 AM CDT 02/05/2024 8:17 AM CDT Soft Results Interface LAB BLOOD TROPONI N [facility] [address] [place] [address], [facility] NPRG [place] [address] [place] [address] * (ABNORMAL) Troponin T, 2 Hour with 6 Hour Reflex, 5th Gen (02/05/2024 4:04 AM CDT) Troponin T, 2 hr, 5th gen 42(H) <=15 ng/L 02/05/2024 4:28 AM CDT NPRG 2H Delta 7 ng/L 02/05/2024 4:28 AM CDT NPRG Comment:6 hour collection pe nding. 2H Delta Interp Indeterminate 02/05/2024 4:28 AM CDT NPRG Comment:Indeterminate delta, additional sample suggested Blood 02/05/2024 4:04 AM CDT 02/05/2024 4:16 AM CDT Soft Results Interface LAB BLOOD TROPONI N [facility] [address] [place] [address], [facility] NPRG [place] [address] [address] [place] [address] * DX Chest AP or PA and Lateral 2 Views (02/05/2024 3:49 AM CDT) Anatomical Region Laterality Modality Chest, Thoracic RST LOS, Tho racic ARZ LOS, Thoracic FLA LOS N/A Digital Radiography Impressions 02/05/2024 3:53 AM CDT No comparison. Negative for acute cardiopulmonary abnormality. Right chest multilead ICD. Spinal stimulator leads noted. Narrative 02/05/2024 3:53 AM CDT EXAM: DX CHEST AP OR PA AND LATERAL 2 VIEWS Procedure Note Johnnie Reyes M.D. - 02/05/2024 EXAM: DX CHEST AP OR PA AND LATERAL 2 VIEWS IMPRESSION: No comparison. Negative for acute cardiopulmonary abnormality. Right chestmultilead ICD. Spinal stimulator leads noted. Hira Child M.D. IMG DIAGNOSTIC IMAGI NG PROCEDURES * SARS Coronavirus 2, PCR Rapid Symptomatic (02/05/2024 2:32 AM CDT) Pathologist [facility] SARS CoV-2, PCR, Rapid, V Undetected Undetected 02/05/2024 2:36 AM CDT NPRG Comment: ----ADDITIONAL INFORMATION---- This RT-PCR test was performed using the [employer] SARS-CoV-2 and Influenza A/B Reagent assay from [employer], which has received Emergency Use Authorization(EUA) by the U.S. Food and Drug Administration. Fact sheets for this Emergency Use Authorization (EUA) assay can be found at the following links: For Healthcare Providers: https://www.fda.gov/media/831182/download For Patients: https://www.fda.gov/media/270808/download SARS Coronavirus 2, Source, Rapid Swab, Nasopharynx 02/05/2024 2:54 AM CDT NPRG Swab (Nasopharynx) 02/05/2024 2:32 AM CDT 02/05/2024 2:54 AM CDT Hira Child M.D. LAB MICROBIOLOGY - G ENERAL ORDERABLES [facility] [address] [place] [address], [facility] NPRG [facility] [address] [place] [address] * (ABNORMAL) BMP (Basic Metabolic Panel), POCT (02/05/2024 2:09 AM CDT) Pathologist [facility] BUN (Blood Urea Nitrogen), POCT, B 54(H) 8 - 24 mg/dL 02/05/2024 2:19 AM CDT NPRG Chloride, POCT, B 94(L) 98 - 107 mmol/L 02/05/2024 2:19 AM CDT NPRG Creatinine, POCT, B 2.2(H) 0.7 - 1.4 mg/dL 02/05/2024 2:19 AM CDT NPRG Comment: ----ADDITIONAL INFORMATION---- Performed at the Point of Care Estimated GFR (eGFR), POCT 33(L) >=60 mL/min/BSA 02/05/2024 2:21 AM CDT NPRG Comment: Estimated GFR calculated using the 2020 CKD_EPI creatinine equation. Glucose, POCT, B 135 70 - 140 mg/dL 02/05/2024 2:19 AM CDT NPRG Calcium, Ionized, POCT, B 4.10(L) 4.65 - 5.30 mg/dL 02/05/2024 2:19 AM CDT NPRG Potassium, POCT, B 3.2(L) 3.6 - 5.2 mmol/L 02/05/2024 2:19 AM CDT NPRG Sodium, POCT, B 136 135 - 145 mmol/L 02/05/2024 2:19 AM CDT NPRG Total CO2, POCT, B 33(H) 22 - 29 mmol/L 02/05/2024 2:19 AM CDT NPRG Anion Gap, POCT, B 9 7 - 15 02/05/2024 2:19 AM CDT NPRG Blood 02/05/2024 2:09 AM CDT 02/05/2024 2:09 AM CDT Hira Child M.D. LAB POCT ORDERABLES - DEVICE [facility] [address] [place] [address], [facility] NPRG [facility] [address] [place] [address] * (ABNORMAL) Venous Blood Gas with Lactate, POCT, B (02/05/2024 2:08 AM CDT) pH, Venous, POCT, B 7.46(H) 7.32 - 7.43 02/05/2024 2:14 AM CDT NPRG pCO2, Venous, POCT, B 51 41 - 51 mm Hg 02/05/2024 2:14 AM CDT NPRG pO2, Venous, POCT, B 44 Not applicable mm Hg 02/05/2024 2:14 AM CDT NPRG HCO3, Venous, POCT, B 36 Not applicable mmol/L 02/05/2024 2:14 AM CDT NPRG Base Excess, Venous, POCT, B 12 Not applicable mmol/L 02/05/2024 2:14 AM CDT NPRG O2 Saturation, Venous, POCT, B 81 Not applicable % 02/05/2024 2:14 AM CDT NPRG Sample Type, Blood Gas, POCT YASMEEN 02/05/2024 2:14 AM CDT NPRG Lactate, POCT 1.43 0.50 - 2.20 mmol/L 02/05/2024 2:14 AM CDT NPRG Blood (Blood, Venous) 02/05/2024 2:08 AM CDT 02/05/2024 2:08 AM CDT Hira Child M.D. LAB POCT ORDERABLES - DEVICE Performing Organization Address City/[facility] Co de Phone Number [facility] [address] [place] [address], [facility] NPRG [facility] [address] [place] [address] * (ABNORMAL) Morphology Evaluation (02/05/2024 2:08 AM CDT) RBC Morphology See Specific Findings 02/05/2024 2:49 AM CDT NPRG PLT Morphology See Specific Findings 02/05/2024 2:49 AM CDT NPRG PLT Estimate Adequate Adequate 02/05/2024 2:49 AM CDT NPRG Anisocytosis Slight(A) 02/05/2024 2:49 AM CDT NPRG Dacrocytes Slight(A) Not Seen 02/05/2024 2:49 AM CDT NPRG Large PLT Present(A) Not Seen 02/05/2024 2:49 AM CDT NPRG Macrocytosis Slight(A) Not Seen 02/05/2024 2:49 AM CDT NPRG Polychromasia Slight(A) Not Seen 02/05/2024 2:49 AM CDT NPRG Blood 02/05/2024 2:08 AM CDT 02/05/2024 2:08 AM CDT Soft Results Interface LAB BLOOD ADD-ON [facility] [address] [place] [address], [facility] NPRG [place] [address] [address] [place] [address] * (ABNORMAL) Troponin T, Baseline with 2 Hour/6 Hour Reflex Biomarker Panel (02/05/2024 2:08 AM CDT) Troponin T, Baseline, 5th gen 35(H) <=15 ng/L 02/05/2024 2:43 AM CDT NPRG Blood (Blood, Venous) 02/05/2024 2:08 AM CDT 02/05/2024 2:08 AM CDT Hira Child M.D. LAB BLOOD TROPONIN Performing Organization Address [facility] Co de Phone Number [facility] [address] [place] [address], [facility] NPRG [address] [address] * (ABNORMAL) NT-Pro B-Type Natriuretic Peptide (BNP) (02/05/2024 2:08 AM CDT) NT-Pro BNP 277(H) <=88 pg/mL 02/05/2024 2:52 AM CDT NPRG Comment: NT-proBNP values less than 300 pg/mL have a 99% negative predictive value for excluding acute congestive heart failure. A cutoff of 1200 pg/mL for patients with an eGFR<60 yields a diagnostic sensitivity and specificity of 89% and 72% for acute congestive heart failure. A diagnostic NT-proBNP cutoff of 900 pg/mL has been suggested in adults 50-75 years of age in the absence of renal failure. Blood (Blood, Venous) 02/05/2024 2:08 AM CDT 02/05/2024 2:08 AM CDT Hira Child M.D. LAB BLOOD ADD-ON Performing Organization Address City/[facility]/ZIP Co de Phone Number [facility] [address] [place] [address], [facility] NPRG [facility] [place] [address] [place] [address] * (ABNORMAL) CBC with Differential, Blood (02/05/2024 2:08 AM CDT) Hemoglobin 14.6 13.2 - 16.6 g/dL 02/05/2024 2:45 AM CDT NPRG Hematocrit 42.6 38.3 - 48.6 % 02/05/2024 2:45 AM CDT NPRG Erythrocytes 4.32(L) 4.35 - 5.65 x10(12)/L 02/05/2024 2:45 AM CDT NPRG MCV 98.6(H) 78.2 - 97.9 fL 02/05/2024 2:45 AM CDT NPRG RBC Distrib Width 15.5(H) 11.8 - 14.5 % 02/05/2024 2:45 AM CDT NPRG Platelet Count 152 135 - 317 x10(9)/L 02/05/2024 2:45 AM CDT NPRG Leukocytes 10.0(H) 3.4 - 9.6 x10(9)/L 02/05/2024 2:45 AM CDT NPRG Neutrophils 7.65(H) 1.56 - 6.45 x10(9)/L 02/05/2024 2:45 AM CDT NPRG Lymphocytes 1.37 0.95 - 3.07 x10(9)/L 02/05/2024 2:45 AM CDT NPRG Monocytes 0.82(H) 0.26 - 0.81 x10(9)/L 02/05/2024 2:45 AM CDT NPRG Eosinophils 0.07 0.03 - 0.48 x10(9)/L 02/05/2024 2:45 AM CDT NPRG Basophils 0.05 0.01 - 0.08 x10(9)/L 02/05/2024 2:45 AM CDT NPRG Blood (Blood, Venous) 02/05/2024 2:08 AM CDT 02/05/2024 2:08 AM CDT Hira Child M.D. LAB BLOOD ADD-ON Performing Organization Address City/[facility]/ZIP Co de Phone Number [facility] [address] [place] [address], [facility] NPRG [address] [address] * Lactate (02/05/2024 2:08 AM CDT) Lactate, P 1.6 0.5 - 2.2 mmol/L 02/05/2024 3:32 AM CDT NPRG Blood (Blood, Venous) 02/05/2024 2:08 AM CDT 02/05/2024 2:08 AM CDT Hira Child M.D. LAB BLOOD NON ADD-ON Performing Organization Address City/[facility]/ZIP Co de Phone Number [facility] [address] [place] [address], [facility] NPRG [address] [address] * (ABNORMAL) Comprehensive Metabolic Panel (02/05/2024 2:08 AM CDT) Potassium, P 3.4(L) 3.6 - 5.2 mmol/L 02/05/2024 3:34 AM CDT NPRG Sodium, P 136 135 - 145 mmol/L 02/05/2024 3:34 AM CDT NPRG Chloride, P 92(L) 98 - 107 mmol/L 02/05/2024 3:34 AM CDT NPRG Bicarbonate, P 29 22 - 29 mmol/L 02/05/2024 3:34 AM CDT NPRG Anion Gap, P 15 7 - 15 02/05/2024 3:34 AM CDT NPRG BUN (Blood Urea Nitrogen), P 53(H) 8 - 24 mg/dL 02/05/2024 3:34 AM CDT NPRG Creatinine 2.04(H) 0.74 - 1.35 mg/dL 02/05/2024 3:34 AM CDT NPRG Estimated GFR (eGFR) 36(L) >=60 mL/min/BS A 02/05/2024 3:34 AM CDT NPRG Comment: Estimated GFR calculated using the 2020 CKD_EPI creatinine equation. Calcium, Total, P 9.6 8.8 - 10.2 mg/dL 02/05/2024 3:34 AM CDT NPRG Glucose, P 136 70 - 140 mg/dL 02/05/2024 3:34 AM CDT NPRG Protein, Total, P 7.7 6.3 - 7.9 g/dL 02/05/2024 3:34 AM CDT NPRG Albumin, P 4.3 3.5 - 5.0 g/dL 02/05/2024 3:34 AM CDT NPRG Aspartate Aminotransferase (AST), P 40 8 - 48 U/L 02/05/2024 3:34 AM CDT NPRG Alkaline Phosphatase, P 120 40 - 129 U/L 02/05/2024 3:34 AM CDT NPRG Alanine Aminotransferase (ALT), P 27 7 - 55 U/L 02/05/2024 3:34 AM CDT NPRG Bilirubin, Total, P 0.5 0.0 - 1.2 mg/dL 02/05/2024 3:34 AM CDT NPRG Blood (Blood, Venous) 02/05/2024 2:08 AM CDT 02/05/2024 2:08 AM CDT Hira Child M.D. LAB BLOOD ADD-ON [facility] [address] [place] [address], [facility] NPRG [facility] [address] [place] [address] * ECG 12 Lead (02/05/2024 1:19 AM CDT) Ventricular Rate ECG/Min 101 BPM MUSE TX Interval 138 ms MUSE QRSD Interval 162 ms MUSE QT Interval 402 ms MUSE QTC Interval 521 ms MUSE P Cisco 67 degrees MUSE R Cisco 162 degrees MUSE T Wave Cisco 27 degrees MUSE 02/05/2024 1:19 AM CDT 02/05/2024 1:29 AM CDT Impressions MUSE - 02/05/2024 1:29 AM CDT Poor data quality - Deep brain stimulator Atrial-sensed ventricular-paced rhythm Sinus tachycardia Prolonged QT When compared with ECG of 09-Jun-2023 15:47, Vent. rate has increased by 14 bpm Premature ventricular complexes are no longer present Reviewed by DENIZ Gibson Narrative Procedure Note Shay Diallo M.D., M.P.H. - 02/05/2024 IMPRESSION: Poor data quality - Deep brain stimulator Atrial-sensed ventricular-paced rhythm Sinus tachycardia Prolonged QT When compared with ECG of 09-Jun-2023 15:47, Vent. rate has increased by 14 bpm Premature ventricular complexes are no longer present Reviewed by DENIZ Gibson Hira Child M.D. ECG ORDERABLES MUSE NA * (ABNORMAL) Hemoglobin A1c (05/30/2023 8:54 AM MAT MAKING MACHINE TENDER) Hemoglobin A1c, B 6.5(H) 4.2 - 5.6 % 05/30/2023 1:02 PM MAT MAKING MACHINE TENDER NPRG Comment: Hemoglobin A1c values greater than or equal to 6.5 percent are diagnostic for diabetes mellitus. ??Diagnosis should be confirmed by repeat testing. ??In diabetic patients, HbA1c goals should be discussed with healthcare provider. Blood (Blood, Venous) 05/30/2023 8:54 AM MAT MAKING MACHINE TENDER 05/30/2023 12:34 PM MAT MAKING MACHINE TENDER Erick Lagunas M.D. LAB BLOOD ADD-ON [facility] [address] [place] [address], [facility] NPRG [facility] [address] [place] [address] * (ABNORMAL) Lipid Panel (12/16/2015 8:40 AM CDT) Calculated LDL Test Not Performed <=129 MGDL POWERCHART Comment:LDL Calculated canno t be performed because the Triglyceride is > 400 mg/dL. A measured LDL has been ordered. Cholesterol, Total 149 <=199 MGDL POWERCHART Comment: 2014 National Lipid Association recommendations for Total Cholesterol in adults ages 18 and up: Desirable <200 mg/dL Borderline high 200-239 mg/dL High 240 mg/dL 2014 National Lipid Association recommendations for Total Cholesterol in children ages 2 to 17. Acceptable <170 mg/dL Borderline High 170-199 mg/dL High 200 mg/dL HX HDL 31(L) >=40 MGDL POWERCHART Comment: 2014 National Lipid Association recommendations for HDL-C in adults ages 18 and up: Low <40 mg/dL (Men) Low <50 mg/dL (Women) 2014 National Lipid Association recommendations for HDL-C in children ages 2 to 17. Low <40 mg/dL Borderline Low 40-45 mg/dL Acceptable >45 mg/dL Triglycerides 410(H) <=149 MGDL POWERCHART Comment: 2014 National Lipid Association recommendations for Triglycerides in adults ages 18 and up: Normal <150 mg/dL Borderline High 150-199 mg/dL High 200-499 mg/dL Very High 500 mg/dL 2014 National Lipid Association recommendations for Triglycerides in children ages 2 to 9. Acceptable <75 mg/dL Borderline High 75-99 mg/dL High 100 mg/dL 2014 National Lipid Association recommendations for Triglycerides in children ages 10 to 17. Acceptable <90 mg/dL Borderline High 90-129 mg/dL High 130 mg/dL Trigs >400mg/dL: Triglycerides >400 mg/dL. Calculated LDL cholesterol is not valid. Non-HDL cholesterol may be used for risk assessment when triglycerides are >400mg/dL. Blood 12/16/2015 8:40 AM CDT Jonnie Dupont M.D. LAB BLOOD ADD-ON Performing Organization Address City/[facility] de Phone Number POWERCHART * Thyroid-Stimulating Hormone-Sensitive (s-TSH) (12/16/2015 8:40 AM CDT) TSH (Thyrotropin) 4.15 0.27 - 4.20 MIUL POWERCHART Blood 12/16/2015 8:40 AM CDT Jonnie Dupont M.D. LAB BLOOD ADD-ON POWERCHART * (ABNORMAL) Microalbumin, Random, Urine (10/01/2013 8:50 AM CDT) Protein, Ur, Dip 30(A) Negative POWERCHART Albumin/Creati nine Ratio See Comment <=16 MGGM POWERCHART Comment:Microalbumin test no t performed, protein dipstick indicates protein is present at equal or greater than 30 mg/dl Urine 10/01/2013 8:50 AM CDT Jonnie Dupont M.D. LAB URINE ORDERAB LES POWERCHART from Last 3 Months or Most Recently Relevant to Health Maintenance Care Teams Lead Consultant Relationship Specialty Start Date End Date Elsewhere, Pcp PCP - General Internal Medicine 03/29/22
--- OUTSIDE RECORDS SUMMARY | 2024-02-09 04:39 | XMS_ITS ---
Author Organization [facility] Address [address] [place] [address] Care Team Providers Care Cable Weaver Name Role Phone Unavailable Unavailable Unavailable Surgery Details Not on file Complications Check Surgery Details section. Procedure Estimated Blood Loss Check Surgery Details section. Procedure Findings Check Surgery Details section. Procedure Specimens Taken Check Surgery Details section.
--- OUTSIDE RECORDS SUMMARY | 2024-02-09 04:39 | XMS_ITS | Clinical Summary ---
Author Organization [facility] Address [address] [place] [address] Care Team Providers Care Refrigeration Service Technician Name Role Phone Elsewhere, Pcp Primary Care Provider Unavailabl e Source Comments Patient records contain information from all sites at [facility]. For routine questions regarding patient records, call [phone] during business hours, M-F 8:00 AM - 5:00 PM Central Time. Record requests for emergency care only can be directed to [phone] at any time.[facility] Allergies Active Allergy Reactions Criticality Noted Date [...] Overview (12/12/2016): Diabetes Mellitus Type 2 (250.00) Encounters Date Type Department Care Team Description 02/05/2024 12:41 AM CDT - 02/05/2024 12:20 PM CDT Emergency [facility] [address] [place] [phone] Hira Child M.D. Scharrer, Erik A, M.D. Hypoxia (Primary Dx); Shortness Of Breath; Illness Febrile; Diabetes Mellitus Type 2 (HCC); Acute Respiratory Failure With Hypoxia (HCC) Discharge Disposition: Left Against Medical Advice or Discontinued Care from Last 3 Months Family History Medical History Relation Name Comments Hypothyroidism Brother Prostate cancer Father Blindness Mother COPD Mother Macular degeneration Mother Hypothyroidism Sister Relation Name Status Comments Brother Father Mother Sister Social History Tobacco Use Types Packs/Day [...] 167.6 cm (5' 6) 06/09/2023 11:28 AM ON SITE SERVICES SPECIALIST Body Mass Index 46.65 06/09/2023 11:28 AM ON SITE SERVICES SPECIALIST Plan of Treatment Health Maintenance Due Date Last Done Comments CT Colonography 1961 Cologuard 1961 Diabetic Office Visit with F oot Exam 1961 HIV Screening 1961 Hepatitis C Screening 1961 Office Visit for Blood Press ure Check / Re-check 1961 Pneumococcal vaccine (0-64 y ears) (1 of 2 - PCV) 10/04/1967 Urine Albumin 10/01/2014 10/01/2013, 11/20, 07/31/2012 FIT 02/12/2016 02/11/2015 Dilated Eye Exam 12/21/2016 12/22/2015 Hepatitis B Vaccines (1 of 3 - Risk 3-dose series) 2021 COVID-19 Vaccine (3 - 2022-2 4 season) 2023 11/05/2020, 10/08/2020 Depression Screening (Annual PHQ-2) 07/23/2023 Hemoglobin A1C 11/28/2023 05/30/2023, 04/22, 12/16/2015, Additional history exists Influenza Vaccine (#1) 2024 Thyroid Stimulating Hormone (TSH) test for thyroid function 09/07/2024 09/07/2023, 07/03/2023, 09/04/2022, Additional history exists Creatinine Level (Kidney Fun ction Test) 02/06/2025 02/07/2024, 02/05/2024, 02/05/2024, Additional history exists Potassium Level 02/06/2025 02/07/2024, 01/20, 02/07/2024, Additional history exists Sodium Level 02/06/2025 02/07/2024, 01/20, 02/05/2024, Additional history exists Lipid (Cholesterol) Screening 09/07/2028, 09/04/2022, 08/18/2020, Additional history exists DTaP,Tdap,and Td Vaccines (2 - Td or Tdap) 02/11/2030 02/12/2020 Colonoscopy 08/16/2030 08/16/2020 Colorectal Cancer Screening 08/16/2030 Zoster Vaccines Completed 09/18/2018, 07/26/2018 Procedures Procedure Name Priority Date/Time Associated Diagnosis [...] A1C, B STAT 05/30/2023 8:5 4 AM ON SITE SERVICES SPECIALIST Osteomyelitis Foot (HCC) Cellulitis Methicillin Resistant Staphylococcus [...] Soft Results Interface LAB BLOOD TROPONI N Performing Organization Address [facility] Co de Phone Number [facility] [address] [place] [address], [facility] NPRG [address] [address] * (ABNORMAL) Troponin T, 2 Hour with [...] Soft Results Interface LAB BLOOD TROPONI N Performing Organization Address [facility] Co de Phone Number [facility] [address] [place] [address], [facility] [address] [address] * DX Chest AP or PA and [...] PCR Rapid Symptomatic (02/05/2024 2:32 AM CDT) SARS CoV-2, PCR, Rapid, V Undetected Undetected [...] at the following links: For Healthcare Providers: https://www.fda.gov/media/357504/download For Patients: https://www.fda.gov/media/139066/download SARS Coronavirus 2, Source, Rapid Swab, Nasopharynx 02/05/2024 2:54 AM CDT [facility] Swab (Nasopharynx) 02/05/2024 2:32 AM CDT 02/05/2024 2:54 AM CDT Hira Child M.D. LAB MICROBIOLOGY - G ENERAL ORDERABLES [facility] [address] [place] [address], [facility] [place] [address] [place] [address] * (ABNORMAL) BMP (Basic Metabolic Panel), POCT (02/05/2024 2:09 AM CDT) BUN (Blood Urea Nitrogen), POCT, B 54(H) [...] Child M.D. LAB POCT ORDERABLES - DEVICE [facility] [address] [place] [address], [facility] [address] [place] [address] * (ABNORMAL) Venous Blood Gas with Lactate, [...] Child M.D. LAB POCT ORDERABLES - DEVICE [facility] [address] [place] [address], [facility] [address] [place] [address] * (ABNORMAL) Morphology Evaluation (02/05/2024 2:08 AM [...] CDT Soft Results Interface LAB BLOOD ADD-ON Performing Organization Address City/[facility] Co de Phone Number [facility] [address] [place] [address], [facility] [place] [address] [place] [address] * (ABNORMAL) Troponin T, Baseline with 2 Hour/6 Hour Reflex Biomarker Panel (02/05/2024 2:08 AM CDT) Troponin T, Baseline, 5th gen 35(H) <=15 ng/L 02/05/2024 2:43 AM CDT [facility] Blood (Blood, Venous) 02/05/2024 2:08 AM CDT 02/05/2024 2:08 AM CDT Hira Child M.D. LAB BLOOD TROPONIN Performing Organization Address [facility] Co de Phone Number [facility] [address] [place] [address], [facility] [place] [address] [place] [address] * (ABNORMAL) NT-Pro B-Type Natriuretic Peptide (BNP) [...] CDT Hira Child M.D. LAB BLOOD ADD-ON [facility] [address] [place] [address], [place] [facility] [address] [place] [address] * (ABNORMAL) CBC with Differential, Blood (02/05/2024 [...] CDT Hira Child M.D. LAB BLOOD ADD-ON [facility] [address] [place] [address], [facility] [place] [address] [place] [address] * Lactate (02/05/2024 2:08 AM CDT) Lactate, P 1.6 0.5 - 2.2 mmol/L 02/05/2024 3:32 AM CDT [facility] Blood (Blood, Venous) 02/05/2024 2:08 AM CDT 02/05/2024 2:08 AM CDT Hira Child M.D. LAB BLOOD NON ADD-ON Performing Organization Address City/[facility]/ZIP Co de Phone Number [facility] [address] [place] [address], [facility] NPR[facility] [place] [address] [place] [address] * (ABNORMAL) Comprehensive Metabolic Panel (02/05/2024 2:08 [...] CDT Hira Child M.D. LAB BLOOD ADD-ON [facility] [address] [place] [address], [facility] [address] [place] [address] * ECG 12 Lead (02/05/2024 1:19 AM CDT) Ventricular Rate ECG/Min 101 BPM MUSE IL Interval 138 ms MUSE QRSD Interval 162 ms MUSE QT Interval 402 ms MUSE QTC Interval 521 ms MUSE P Crete 67 degrees MUSE R Crete 162 degrees MUSE T Wave Crete 27 degrees MUSE 02/05/2024 1:19 AM CDT [...] * (ABNORMAL) Hemoglobin A1c (05/30/2023 8:54 AM ON SITE SERVICES SPECIALIST) Hemoglobin A1c, B 6.5(H) 4.2 - 5.6 % 05/30/2023 1:02 PM ON SITE SERVICES SPECIALIST [facility] Comment: Hemoglobin A1c values greater than or equal to 6.5 percent are diagnostic for diabetes mellitus. ??Diagnosis should be confirmed by repeat testing. ??In diabetic patients, HbA1c goals should be discussed with healthcare provider. Blood (Blood, Venous) 05/30/2023 8:54 AM ON SITE SERVICES SPECIALIST 05/30/2023 12:34 PM ON SITE SERVICES SPECIALIST Erick Lagunas M.D. LAB BLOOD ADD-ON [facility] [address] [place] [address], [place] [facility] [address] [place] [address] * (ABNORMAL) Lipid Panel (12/16/2015 8:40 AM [...] Dupont M.D. LAB BLOOD ADD-ON POWERCHART * Thyroid-Stimulating Hormone-Sensitive (s-TSH) (12/16/2015 8:40 [...] Recently Relevant to Health Maintenance Care Teams Refrigeration Service Technician Relationship Specialty Start Date End Date Elsewhere, Pcp PCP - General Internal Medicine 03/29/22
--- OUTSIDE RECORDS SUMMARY | 2024-02-09 04:39 | XMS_ITS | Encounter Summary ---
Author Organization [facility] Address [address] [facility] [address] [place] [address] Care Team Providers Care Third Mate Name Role Phone Ben Cadena MD Primary Care Provider [phone] Encounter Details Date Type Department Care Team (Late st Contact Info) Description 11/07/2023 Orders Only [facility] [address] [address] Darion So MD [address] [place] [address] Stage 3b chronic kidney disease (HCC) Social History Tobacco Use Types Packs/Day Years Used Date Smoking Tobacco: Former Cigarettes 2 26 1 980 - 2006 Smokeless Tobacco: Never Alcohol Use Standard Drinks/Week Comments Yes 0 (1 standard drink = 0.6 oz pur e alcohol) 1-2 per week Sex and Gender Information Value Date Recorded Sex Assigned at Not on file Gender Identity Not on file Sexual Orientation Not on file documented as of this encounter Plan of Treatment Upcoming Encounters Date Type Department Care Team (Late st Contact Info) Description 02/14/2024 Orders Only [facility] [address] [place] [address] Darion So MD [address] [place] [address] Stage 3b chronic kidney disease (HCC) 03/03/2024 9:00 AM EDT Office Visit [facility] [address] [place] [address] Darion So MD [address] [place] [address] documented as of this encounter Procedures Procedure Name Priority Date/Time Associated Diagnosis Comments URINE ALBUMIN / CREATININE RATIO Routine 11/12/2023 Stage 3b chronic kidney disease (HCC) BASIC METABOLIC PANEL Routine 11/12/2023 Stage 3b chronic kidney disease (HCC) documented in this encounter Results * Urine Albumin / Creatinine Ratio (11/12/2023) Albumin, Urine 15.4 mg/dL [facility] Creatinine, Urine Random 0.55 mg/dL [facility] Alb/Creat Ratio, Ur 28.0 mg/g Creat [facility] Urine (Urine, Clean Catch) 11/12/2023 Darion So MD LAB URINE ORDERABLES Performing Organization Address City/[facility]/ZIP Co de Phone Number [facility] * (ABNORMAL) Basic metabolic panel (11/12/2023) Sodium 138 mEq/L [facility] Potassium 3.1(L) mEq/L [facility] Chloride 93(L) [facility] Carbon Dioxide 32(H) mmol/L [facility] Calcium 9.7 mg/dL [facility] BUN 52(H) mg/dL [facility] Creatinine 2.01(H) mg/dL [facility] Glucose 149(H) mg/dL [facility] eGFR 37(L) [facility] Anion Gap 13 [facility] Blood (Blood, Venous) 11/12/2023 Darion So MD LAB BLOOD ORDERABLES [facility] documented in this encounter Visit Diagnoses Diagnosis Stage 3b chronic kidney disease (HCC) Stage 3b chronic kidney disease (HCC) documented in this encounter Care Teams Third Mate Relationship Specialty Start Date End Date Ben Cadena MD [address] [place] [address] PCP - General Family Medicine 09/05/23 documented as of this encounter
--- OUTSIDE RECORDS SUMMARY | 2024-02-09 04:39 | XMS_ITS | Encounter Summary ---
Author Organization [facility] Address [address] [place] [address] Care Team Providers Care Manufacturing Applications Engineer Name Role Phone Ben Cadena MD Primary Care Provider [phone] Encounter Details Date Type Department Care Team (Late st Contact Info) Description 11/13/2023 Telephone [facility] [place] [address] [place] [address] Rebecca Ambrocio [address] [place] [address] Social History Tobacco Use Types Packs/Day Years Used Date Smoking Tobacco: Former Cigarettes 2 26 1 - 2005 Smokeless Tobacco: Never Alcohol Use Standard Drinks/Week Comments Yes 0 (1 standard drink = 0.6 oz pur e alcohol) 1-2 per week Sex and Gender Information Value Date Recorded Sex Assigned at Not on file Gender Identity Not on file Sexual Orientation Not on file documented as of this encounter Miscellaneous Notes * Telephone Encounter - Martina Ross RN - 11/14/2023 9:48 AM CDT Pt returned call notified Dr So's message and voiced understanding. * Telephone Encounter - Rebecca Ambrocio - 11/14/2023 9:22 AM CDT Pt. indio message on voice mail, returned call, reached voice mail, asked pt. to callback * Telephone Encounter - Rebecca Ambrocio - 11/13/2023 2:02 PM CDT Clem Have him take 40 meq today (20 meq more if he has taken 20 meq already) and 40 meq tomorrow and 11/14 and then I will see him at his appt on 11/14. Thanks LMTCB * Telephone Encounter - Rebecca Ambrocio - 11/13/2023 1:55 PM CDT Reviewed PVL for 11/15/23 appt Potassium is 3.1, was 3.2 on 07/10/23. Contacted pt., feels well, no unusual symptoms. Takes one KlorCon 20mEq CR per day Page sent to Dr. So documented in this encounter Plan of Treatment Upcoming Encounters Date Type Department Care Team (Late st Contact Info) Description 02/14/2024 Orders Only [facility] [place] [address] Darion So MD [address] [place] [address] Stage 3b chronic kidney disease (HCC) 03/03/2024 9:00 AM EDT Office Visit [facility] [place] [address] Darion So MD [address] [place] [address] documented as of this encounter Visit Diagnoses Not on filedocumented in this encounter Care Teams Manufacturing Applications Engineer Relationship Specialty Start Date End Date Ben Cadena MD [address] [place] [address] PCP - General Family Medicine 09/05/23 documented as of this encounter
--- OUTSIDE RECORDS SUMMARY | 2024-02-09 04:39 | XMS_ITS | Encounter Summary ---
Author Organization [facility] Address [address] [place] [address] Care Team Providers Care Manufacturing Project Manager Name Role Phone Ben Cadena MD Primary Care Provider [phone] Encounter Details Date Type Department Care Team (Late st Contact Info) Description 11/05/2023 Telephone [facility] [place] [address] [place] [address] Tash Bryant [address] [place] [address] Social History Tobacco Use Types [...] * Telephone Encounter - Tash Bryant - 11/05/2023 11:27 AM CDT Spoke to patient regarding previsit labs to be completed prior to their office visit. Orders Faxed to Preet Curtis. Pt voiced understanding documented in this encounter Plan of Treatment Upcoming Encounters Date Type Department Care Team (Late st Contact Info) Description 02/14/2024 Orders Only [facility] [place] [address] Darion So MD [address] [place] [address] Stage 3b chronic kidney disease (HCC) 03/03/2024 9:00 AM EDT Office Visit [facility] [place] [address] Darion So MD [address] [place] [address] documented as of this encounter Visit Diagnoses Not on filedocumented in this encounter Care Teams Manufacturing Project Manager Relationship Specialty Start Date End Date Ben Cadena MD [address] [place] [address] PCP - General Family Medicine 09/05/23 documented as of this encounter
--- OUTSIDE RECORDS SUMMARY | 2024-02-09 04:39 | XMS_ITS | Encounter Summary ---
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 Pt reports he had lymphedema. Encounter Details Date Type Department Care Team (Late st Contact Info) Description 02/05/2024 12:41 AM CDT - 02/05/2024 12:20 PM CDT Emergency [facility] [address] [place] [address] Hira Child M.D. [address] [place] [phone] Guanaco Hart M.D. [address] [place] [id number] Hypoxia (Primary Dx); Shortness Of Breath; Illness Febrile; Diabetes Mellitus Type 2 (HCC); Acute Respiratory Failure With Hypoxia (HCC) Discharge Disposition: Left Against Medical Advice or Discontinued Care Social History Tobacco Use Types Packs/Day Years Used Date Smoking Tobacco: Former Cigarettes Alcohol Use Standard Drinks/Week Comments Yes 0 (1 standard drink = 0.6 oz pur e alcohol) Occationally Nutrition Answer Date Recorded Nutrition: EVOO Fat Source 13 12/30 Nutrition: Servings of Fruits/Vegetables per Day Not on file 12/30/2018 Dental Answer Date Recorded Dental: Regular Dentist Unknown 03/29/20 22 Sex and Gender Information Value Date Recorded [...] (289 lb) 02/05/2024 12:49 AM CDT Height - - Body Mass Index 46.65 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 - 02/05/2024 11:54 AM CDT Be sure to return to the ED if you have low oxygen levels. documented in this encounter Medications at Time of Discharge Medication Sig Dispensed Refills Start Date End Date acetaminophen (TYLENOL) 500 mg tablet Take 1,000 mg by mouth every 6 (six) hours as needed. allopurinoL (ZYLOPRIM) 100 mg tablet Take 1 tablet by mouth daily. 02/24/[address] tablet Take 81 mg by mouth daily. 06/09/2016 atorvastatin (LIPITOR) 40 mg tablet Take 1 tablet by mouth daily. 08/18/2019 brimonidine (ALPHAGAN) 0.2 % ophthalmic solution Administer 1 drop into affected eye(s) 2 (two) times a day. 04/13/2014 buprenorphine-naloxon e (SUBOXONE) 2-0.5 mg [address] tablet Place 1 tablet under the tongue daily. Not taking 02/10/2022 calcium acetate,phosphat bind, (PHOSLO) 667 mg (169 mg calcium) capsule Take 1 capsule by mouth 3 (three) times a day. 12/26/2021 cefadroxil (Duricef) 500 mg capsule Take 1 capsule (500 mg total) by mouth 2 (two) times a day for 7 days. 14 capsule 02/05/2024 02/12/2024 cholecalciferol (VITAMIN D3) 50 mcg (2,000 Unit) capsule Take 1 capsule by mouth daily. 04/16/2019 cyanocobalamin (VITAMIN B12) 1,000 mcg tablet Take 1,000 mcg by mouth daily. dulaglutide (Trulicity) 3 mg/0.5 mL injection Inject 3 mg under the skin once a week. 01/02/2022 DULoxetine (CYMBALTA) [address] capsule Take 1 capsule by mouth daily. 02/24/2022 HYDROmorphone (DILAUDID) 2 mg tablet Take 2 mg by mouth every 3 (three) hours as needed for pain. 1-2 tablets every 4 hours as needed for pain insulin aspart U-100 (NovoLOG FlexPen) 100 unit/mL (3 mL) injection Inject 20 Units under the skin 3 (three) times a day with meals. insulin degludec (Tresiba FlexTouch U-200) 200 unit/mL (3 mL) injection Inject 75 Units under the skin daily. 07/30/2019 levothyroxine (SYNTHROID, LEVOTHROID) 100 mcg tablet Take 100 mcg by mouth daily. 08/18/2019 metOLazone (ZAROXOLYN) 2.5 mg tablet TAKE TWO TABLETS BY MOUTH ON FRIDAYS. REFILL THRU PRIMARY OR NEPHROLOGY 06/10/2019 metoprolol succinate (TOPROL-XL) 100 mg 24 hr tablet Take 1 tablet by mouth daily. 04/27/2021 nitroglycerin (NITROSTAT) 0.[address] 0.4 mg under the tongue as needed. 10/02/2017 nortriptyline (PAMELOR) 25 mg capsule Take 3 capsules by mouth at bedtime. 08/18/2019 pantoprazole (PROTONIX) 40 mg EC tablet Take 40 mg by mouth daily. 05/13/2019 pregabalin (LYRICA) 100 mg capsule Take 100 mg by mouth 2 (two) times a day. 08/04/2019 pyridoxine, vitamin B6, (B-6) 100 mg tablet Take 1 tablet by mouth daily. rOPINIRole (REQUIP) 4 mg tablet 1/2-One po bid 02/22/2022 tapentadol HCl (TAPENTADOL ORAL) Take by mouth. unsure timolol (TIMOPTIC) 0.5 % ophthalmic solution Administer 1 drop into affected eye(s). 09/15/2017 torsemide (DEMADEX) 20 mg tablet Take 80 mg by mouth 2 (two) times a day. 03/12/2019 documented as of this encounter ED Notes * Guanaco Hart M.D. - 02/05/2024 11:54 AM CDT Care of patient transferred to me by previous ED provider. Roderick Walker is a 63 y.o. male patient who presented with dyspnea and found to have hypoxia. Unfortunately, after being in the emergency department for nearly 12 hours he decided that he was feeling better and wanted to discharge home. I discussed that he might just only be feeling betterbecause of his oxygen that he had been receiving through his nasal cannula and he understands and states that oxygen in the mid 80s is not unusual for him even at home. He has a home pulse oximeter that he monitors occasionally. I also explained that his pulse was higher than normal and that he hasa fever that we can not explain at this time. He wonders if he has a simple viral URI. I looked at his skin in his lower extremities and he does have an open blister to the anterior right lower leg and an intact blister to the lateral distal right lower leg but nothing that looks like an overt infection at this time. I think it was his open wound in his leg and poor circulation he will benefit from antibiotics and he will need to follow up in the clinic. Cefadroxil prescription provided. He understands reasons to return to the ED immediately. He is of sound mind and understands his risk and that he is leaving against our advice. Unfortunately, we still do not have a bed at [facility] despite being accepted 5 hours ago. VITAL SIGNS BP 118/69 Pulse 100 Temp (!) 38.6 ??C (Temporal) Resp 22 Wt 131 kg SpO2 (!) 89% BMI 46.65 kg/m?? PROCEDURES: * * CRITICAL CARE * * CRITICAL CARE: 45 minutes exclusive of procedures but including obtaining history, bedside examination, supervision of care, record review and collateral history from other parties, documentation, review/interpretation of imaging and lab results, discussion with patient, family, nursing, ancillary staff, consultants, and admitting service provider. This patient presented with acute hypoxic respiratory failure in the setting of a febrile illness and dyspnea requiring immediate bedside evaluation and intervention to prevent sudden, clinically significant, or life threatening deterioration in the patient's condition. Final Diagnoses: as of 02/05/24 1156 Hypoxia Shortness Of Breath Illness Febrile Diabetes Mellitus Type 2 (HCC) Acute Respiratory Failure With Hypoxia (HCC) AMA Discharge Note from [facility]: The patient has decided toleave our facility against medical advice. I have assessed the patient's ability to make an informed decision and feel that the patient has the capacity to comprehend information regarding current medical condition and appreciated the impact of the disease or condition and the consequences of various options for treatment, including foregoing treatment. The patient possess the ability to evaluateall treatment options, compare the risks and benefits of each option, communicate his or her choicein a consistent manner over time, and is able to make rational choices. I have explained to the patient further testing, treatment, and evaluation I would like to perform during the current ED visit,as well as any possible alternative that could be accomplished in a timely manner. I have outlined the possible risks of foregoing any or all of these interventions and the patient understands and acknowledges that the decision to leave may result in undesirable consequences such as , permanent disability, and/or loss of current lifestyle. Even though leaving AMA is not ideal, I have instructed the patient to follow any discharge instructions given, take any medications prescribed, and resume care as soon as possible with another provider. This conversation was witnessed by another member of the ED staff and we clearly communicated that the patient is welcome to return at any time to continue care at our facility. Notes are completed with voice recognition dictation software. Errors are generally corrected in real-time. Please message me via [employer] In Basket if you note any areas requiring clarification. Guanaco Hart M.D. 02/05/24 1158 * Hira Child M.D. - 02/05/2024 12:59 AM CDT [facility] Department of Emergency Medicine- [place] 02/05/2024 9:23 AM CDT *Encounter labs and radiology results at the end of this note* Chief Complaint Patient presents with Difficulty Breathing Pt presents to the ED for difficulty breathing that started earlier today. Pt reports he had lymphedema. PCP: ELSEWHERE, PCP HPI: Roderick Walker is a 63 y.o. 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 Patient presents tonight with dyspnea that started about 8 hours ago and has progressively worsened. He does have chronic lymphedemathat he does not feel is significantly worse than usual. He has had a borderline fever. No coughing, nausea, diaphoresis, or pain in the neck arms back or jaw. No abdominal pain or diarrhea or urinary symptoms. No baseline oxygen dependence. No COPD. A complete review of systems was obtained and negative except as in the HPI. No alcohol, tobacco, or illicit drugs. PHYSICAL EXAMINATION General: Well-appearing in no acute distress. HEENT: Head is normocephalic and atraumatic. Hearing and vision are grossly normal. No scleral icterus, jaundice, or pallor. Neck: Supple, with normal range of motion. Heart: Heart rate is normal and regular, no murmurs. Lungs: Clear to auscultation bilaterally, no wheezes or rales. Abdomen: Soft, nontender, nondistended. Skin: Warm and well-perfused you will under extremities: Left lower leg surgically absent with a BKA. Right leg with 1+ pedal edema Neurologic: GCS 15. Moving all 4 extremities spontaneously. Speech clear. Psychiatric: Normal mood and affect. Differential diagnosis includes volume overload, CHF exacerbation, pneumonia, sepsis, electrolyte abnormality, trauma. MDM: 63-year-old gentleman presenting with new onset dyspnea at rest with a 2 L oxygen dependence with not at baseline. Not a lot of associated symptoms go on, however the shortness of breath does appear to be legitimate. Drops into the 80s on room air and then rebounded nicely into the mid to upper 90s on 2 L. Workup is reassuring with baseline creatinine, no anemia or leukocytosis of significanc e, and a normal VBG. Serial troponins were also obtained which are 35, 42, 44. This is for the initial, 2 hour, and 6 hour troponins. Ischemic heart disease is ruled out. Unclear etiology, though thechest x-ray is negative. I did consider CT angiogram of the chest to evaluate for a PE, however given the patient's renal insufficiency in the need for a contrasted study in the fact that he has had a contrast nephropathy in the past, we elected to defer as this would be a rather uncommon presentation of PE. He also developed a fever in the emergency department after arriving at about 37.6?? C, so not febrile but not normal. This jumped up about a degree during his ER stay and he was given Tylenol, with resolution of the fever. However this raises concerns for infectious process or even possibly sepsis. Covered with vancomycin and cefepime for broad coverage while blood cultures were drawn and cook. Given the new oxygen dependence in the clinical uncertainty I think best to admit the patient for further workup and observation. He prefers [facility] as there are no beds available locally. Discussed with Dr. Medina of the hospitalist service who accepts the patient in transfer. Final Diagnoses: as of 02/05/24 0923 Hypoxia Shortness Of Breath Illness Febrile Vitals: 02/05/24 0730 02/05/24 0745 02/05/24 0800 02/05/24 0815 BP: 137/70 118/69 Pulse: 97 91 91 89 Resp: 23 21 18 19 Temp: TempSrc: SpO2: 94% 94% 95% 97% Weight: Medications sodium chloride 0.9 % injection 2-10 mL (has no administration in time range) iopromide 370 mg iodine/mL injection 100 mL (Ultravist) (has no administration in time range) sodium chloride 0.9 % flush 100 mL (has no administration in time range) iopromide 370 mg iodine/mL injection 100 mL (Ultravist) (has no administration in time range) acetaminophen tablet 1,000 mg (TylenoL) (1,000 mg oral Given 02/05/24218) ceFEPIme injection 2 g (Maxipime) (2 g intravenous Given 02/05/24712) vancomycin 2,000 mg in NaCl 0.9% IVPB (Vancocin) (2,000 mg intravenous New Bag 02/05/24714) Clinical Impression: Final diagnoses: [R09.02] Hypoxia [R06.02] Shortness Of Breath [R50.9] Illness Febrile Disposition: Admit [facility] Prescriptions None Labs Reviewed CBC WITH DIFFERENTIAL, B - Abnormal Result Value Hemoglobin 14.6 Hematocrit 42.6 Erythrocytes 4.32 (*) MCV 98.6 (*) RBC Distrib Width 15.5 (*) Platelet Count 152 Leukocytes 10.0 (*) Neutrophils 7.65 (*) Lymphocytes 1.37 Monocytes 0.82 (*) Eosinophils 0.07 Basophils 0.05 COMPREHENSIVE METABOLIC PANEL, S/P - Abnormal Potassium, P 3.4 (*) Sodium, P 136 Chloride, P 92 (*) Bicarbonate, P 29 Anion Gap, P 15 BUN (Blood Urea Nitrogen), P 53 (*) Creatinine 2.04 (*) Estimated GFR (eGFR) 36 (*) Calcium, Total, P 9.6 Glucose, P 136 Protein, Total, P 7.7 Albumin, P 4.3 Aspartate Aminotransferase (AST), P 40 Alkaline Phosphatase, P 120 Alanine Aminotransferase (ALT), P 27 Bilirubin, Total, P 0.5 TROPONIN T, BASELINE, 5TH GEN, P - Abnormal Troponin T, Baseline, 5th gen 35 (*) NT-PRO B-TYPE NATRIURETIC PEPTIDE (BNP), S - Abnormal NT-Pro BNP 277 (*) TROPONIN T, 2H/6H REFLEX, 5TH GEN, P - Abnormal Troponin T, 2 hr, 5th gen 42 (*) 2H Delta 7 2H Delta Interp Indeterminate MORPHOLOGY EVALUATION - Abnormal RBC Morphology See Specific Findings PLT Morphology See Specific Findings PLT Estimate Adequate Anisocytosis Slight (*) Dacrocytes Slight (*) Large PLT Present (*) Macrocytosis Slight (*) Polychromasia Slight (*) TROPONIN T, 6H, 5TH GEN, P - Abnormal Troponin T, 6 hr, 5th gen 44 (*) 6H Delta 9 6H Delta Interp Not Changing VBG WITH LACTATE, POCT, B - Abnormal pH, Venous, POCT, B 7.46 (*) pCO2, Venous, POCT, B 51 pO2, Venous, POCT, B 44 HCO3, Venous, POCT, B 36 Base Excess, Venous, POCT, B 12 O2 Saturation, Venous, POCT, B 81 Sample Type, Blood Gas, POCT YASMEEN Lactate, POCT 1.43 BASIC METABOLIC PANEL (BMP), POCT, B - Abnormal BUN (Blood Urea Nitrogen), POCT, B 54 (*) Chloride, POCT, B 94 (*) Creatinine, POCT, B 2.2 (*) Estimated GFR (eGFR), POCT 33 (*) Glucose, POCT, B 135 Calcium, Ionized, POCT, B 4.10 (*) Potassium, POCT, B 3.2 (*) Sodium, POCT, B 136 Total CO2, POCT, B 33 (*) Anion Gap, POCT, B 9 SARS CORONAVIRUS 2, PCR RAPID, V SARS CoV-2, PCR, Rapid, V Undetected SARS Coronavirus 2, Source, Rapid Swab, Nasopharynx BACTERIA / ESTEPHANIA CULTURE, BLOOD Narrative: Specimen Information: Specimen ID: [id number] Specimen Source: Blood, Peripheral Draw Specimen Comment: Specimen Source Site: Blood Specimen Collection Start Date: 02/05/2024 7:05 AM Specimen Received Date: 02/05/2024 7:16 AM Specimen ID: [id number] Specimen Source: Blood, Peripheral Draw Specimen Comment: Specimen Source Site: Blood Specimen Collection Start Date: 02/05/2024 7:05 AM Specimen Received Date: 02/05/2024 7:16 AM Specimen ID: [id number] Specimen Source: Blood, Peripheral Draw Specimen Comment: Specimen Source Site: Blood Specimen Collection Start Date: 02/05/2024 7:05 AM Specimen Received Date: 02/05/2024 7:16 AM BACTERIA / ESTEPHANIA CULTURE, BLOOD Narrative: Specimen Information: Specimen ID: [id number] Specimen Source: Blood, Peripheral Draw Specimen Comment: Specimen Source Site: Blood Specimen Collection Start Date: 02/05/2024 7:12 AM Specimen Received Date: 02/05/2024 7:18 AM Specimen ID: [id number] Specimen Source: Blood, Peripheral Draw Specimen Comment: Specimen Source Site: Blood Specimen Collection Start Date: 02/05/2024 7:12 AM Specimen Received Date: 02/05/2024 7:18 AM Specimen ID: [id number] Specimen Source: Blood, Peripheral Draw Specimen Comment: Specimen Source Site: Blood Specimen Collection Start Date: 02/05/2024 7:12 AM Specimen Received Date: 02/05/2024 7:18 AM LACTATE, B/P Lactate, P 1.6 DX Chest AP or PA and Lateral 2 Views Final Result No comparison. Negative for acute cardiopulmonary abnormality. Right chest multilead ICD. Spinal stimulator leads noted. CT Chest Angiogram and Pulmonary Arteries with IV Contrast (Results Pending) Hira Child M.D. 02/05/24 0929 documented in this encounter Plan of Treatment Pending Results Name Type Priority Associated Diagnoses Date /Time Bacteria / Estephania Culture, Blood #1 Microbiology STAT 02/05/2024 7:0 5 AM CDT Bacteria / Estephania Culture, Blood #2 Microbiology STAT 02/05/2024 7:1 2 AM CDT documented as of this encounter Procedures Procedure Name Priority Date/Time Associated Diagnosis Comments TROPONIN T, 6H, 5TH GEN, P Timed 02/05/2024 8:15 AM CDT BACTERIA / ESTEPHANIA CULTURE, BLOOD STAT 02/05/2024 7:12 AM CDT BACTERIA / ESTEPHANIA CULTURE, BLOOD STAT 02/05/2024 7:05 AM CDT [...] MORPHOLOGY EVALUATION STAT 02/05/2024 2:08 AM CDT TROPONIN T, BASELINE, 5TH GEN, P STAT 02/05/2024 2:08 AM CDT NT-PRO B-TYPE NATRIURETIC PEPTIDE (BNP), S STAT 02/05/2024 2:08 AM CDT CBC WITH DIFFERENTIAL, B STAT 02/05/2024 2:08 AM CDT LACTATE, B/P STAT 02/05/2024 2:08 AM CDT COMPREHENSIVE METABOLIC PANEL, S/P STAT 02/05/2024 2:08 AM CDT ECG STAT 02/05/2024 1:19 AM CDT PULSE OXIMETRY, CONTINUOUS STAT 02/05/2024 1:11 AM CDT documented in this encounter Results * (ABNORMAL) Troponin T, 6h, 5th Gen (02/05/2024 8:15 AM CDT) Troponin T, 6 hr, 5th gen 44(H) <=15 ng/L 02/05/2024 8:37 AM CDT NPRG 6H Delta 9 ng/L 02/05/2024 8:37 AM CDT NPRG 6H Delta Interp Not Changing 02/05/2024 8:37 AM CDT NPRG Blood 02/05/2024 8:15 AM CDT 02/05/2024 8:17 AM CDT Soft Results Interface LAB BLOOD TROPONI N [facility] [address] [place] [address], [facility] NPRG [facility] [address] [place] [address] * (ABNORMAL) Troponin T, 2 Hour with [...] Soft Results Interface LAB BLOOD TROPONI N [facility] [address] [place] [address], [facility] NPRG [facility] [address] [place] [address] * DX Chest AP or PA and [...] Spinal stimulator leads noted. Hira Child M.D. G DIAGNOSTIC IMAGI NG PROCEDURES * SARS Coronavirus [...] at the following links: For Healthcare Providers: https://www.fda.gov/media/985337/download For Patients: https://www.fda.gov/media/159980/download SARS Coronavirus 2, Source, Rapid Swab, Nasopharynx 02/05/2024 2:54 AM CDT NPRG Swab (Nasopharynx) 02/05/2024 2:32 AM CDT 02/05/2024 2:54 AM CDT Hira Child M.D. LAB MICROBIOLOGY - G ENERAL ORDERABLES [facility] [address] [place] [address], [facility] NPRG [facility] [address] [place] [address] * (ABNORMAL) BMP (Basic Metabolic Panel), POCT [...] POCT ORDERABLES - DEVICE Performing Organization Address [facility] Co de Phone Number [facility] [address] [place] [address], [facility] NPRG [facility] [address] [place] [address] * (ABNORMAL) Morphology Evaluation (02/05/2024 2:08 AM [...] Interface LAB BLOOD ADD-ON Performing Organization Address City/[facility]/ZIP Co de Phone Number [facility] [address] [place] [address], [place] NPRG [place] [address] [place] [address] * (ABNORMAL) Venous Blood Gas with Lactate, [...] Child M.D. LAB POCT ORDERABLES - DEVICE [facility] [address] [place] [address], [place] NPRG [address] [address] * (ABNORMAL) NT-Pro B-Type Natriuretic Peptide (BNP) [...] CDT Hira Child M.D. LAB BLOOD ADD-ON [facility] [address] [place] [address], [place] [address] [address] [place] [address] * (ABNORMAL) Troponin T, Baseline with 2 Hour/6 Hour Reflex Biomarker Panel (02/05/2024 2:08 AM CDT) Troponin T, Baseline, 5th gen 35(H) <=15 ng/L 02/05/2024 2:43 AM CDT NPRG Blood (Blood, Venous) 02/05/2024 2:08 AM CDT 02/05/2024 2:08 AM CDT Hira Child M.D. LAB BLOOD TROPONIN Performing Organization Address City/[facility]/ZIP Co de Phone Number [facility] [address] [place] [address], [address] [address] * Lactate (02/05/2024 2:08 AM CDT) Lactate, P 1.6 0.5 - 2.2 mmol/L 02/05/2024 3:32 AM CDT NPRG Blood (Blood, Venous) 02/05/2024 2:08 AM CDT 02/05/2024 2:08 AM CDT Hira Child M.D. LAB BLOOD NON ADD-ON [facility] [address] [place] [address], [place] NPRG [facility] [address] [place] [address] * (ABNORMAL) Comprehensive Metabolic Panel (02/05/2024 2:08 [...] CDT Hira Child M.D. LAB BLOOD ADD-ON [facility] [address] [place] [address], [facility] NPRG [facility] [address] [place] [address] * (ABNORMAL) CBC with Differential, Blood (02/05/2024 [...] CDT Hira Child M.D. LAB BLOOD ADD-ON [facility] [address] [place] [address], [facility] NPRG [facility] [address] [place] [address] * ECG 12 Lead (02/05/2024 1:19 AM CDT) Ventricular Rate ECG/Min 101 BPM MUSE MI Interval 138 ms MUSE QRSD Interval 162 ms MUSE QT Interval 402 ms MUSE QTC Interval 521 ms MUSE P [place] 67 degrees MUSE R [place] 162 degrees MUSE T Wave [place] 27 degrees MUSE 02/05/2024 1:19 AM CDT [...] Hira Child M.D. ECG ORDERABLES MUSE NA documented in this encounter Visit Diagnoses Diagnosis Hypoxia- Primary Shortness Of Breath Illness Febrile Diabetes Mellitus Type 2 (HCC) Acute Respiratory Failure With Hypoxia (HCC) documented in this encounter Administered Medications Inactive Administered Medications - up to 3 most recent administrations Medication Order MAR Action Action Date Dose Rate Site acetaminophen tablet 1,000 mg (TylenoL) 1,000 mg, oral, Once, On Sun02/05/24 at 0215, For 1 dose Given 02/05/2024 2:19 AM CDT 1,000 mg acetaminophen tablet 1,000 mg (TylenoL) 1,000 mg, oral, Every 6 hours PRN, fever, Starting on Sun02/05/24 at 1126 Given 02/05/2024 11:47 AM CDT 1,000 mg ceFEPIme injection 2 g (Maxipime) 2 g, intravenous, Once, On Sun02/05/24 at 0650, For 1 dose, If needed, reconstitute vial per package insert instructions. See IVAG for administration guidelines., Drug Monitoring Program: Pharmacist to adjust medication dosing based on indication and drug clearance factors., Indications: Sepsis syndrome, unknown source, community acquired Given 02/05/2024 7:13 AM CDT 2 g iopromide 370 mg iodine/mL injection 100 mL (Ultravist) 100 mL, intravenous, Once in imaging, contrast, Starting on Sun02/05/24 at 0455, For 1 dose iopromide 370 mg iodine/mL injection 100 mL (Ultravist) 100 mL, intravenous, Once in imaging, contrast, Starting on Sun02/05/24 at 0455, For 1 dose sodium chloride 0.9 % flush 100 mL 100 mL, intravenous, Once in imaging, line care, Starting on Sun02/05/24 at 0455, For 1 dose sodium chloride 0.9 % injection 2-10 mL 2-10 mL, intravenous, As needed, line care, Starting on Sun02/05/24 at 0110 vancomycin 2,000 mg in NaCl 0.9% IVPB (Vancocin) 2,000 mg, intravenous, at 260 mL/hr, Administer over 120 Minutes, Once, On Sun02/05/24 at 0700, For 1 dose, Drug Monitoring Program: Pharmacist to adjust medication dosing based on indication and drug clearance factors., Indications: Sepsis syndrome, unknown source, community acquired New Bag 02/05/2024 7:15 AM CDT 2,000 mg 260 mL/hr documented in this encounter Active and Recently Administered Medications Times are shown in CDT. Scheduled Medication Order 02/03/2024 02/04/2024 02/05/2024 acetaminophen tablet 1,000 mg (TylenoL) (COMPLETED) 1,000 mg, oral, Once, On Sun02/05/24 at 0215, For 1 dose 0219 (Given - Provid er: Chon Brasher R.N.) ceFEPIme injection 2 g (Maxipime) (COMPLETED) 2 g, intravenous, Once, On Sun02/05/24 at 0650, For 1 dose, If needed, reconstitute vial per package insert instructions. See IVAG for administration guidelines., Drug Monitoring Program: Pharmacist to adjust medication dosing based on indication and drug clearance factors., Indications: Sepsis syndrome, unknown source, community acquired 0713 (Given - Provid er: Chon Brasher R.N.) vancomycin 2,000 mg in NaCl 0.9% IVPB (Vancocin) (COMPLETED) 2,000 mg, intravenous, at 260 mL/hr, Administer over 120 Minutes, Once, On Sun02/05/24 at 0700, For 1 dose, Drug Monitoring Program: Pharmacist to adjust medication dosing based on indication and drug clearance factors., Indications: Sepsis syndrome, unknown source, community acquired 0715 (New Bag - Prov ider: Chon Brasher RStephy)0915 (Stopped - Provider: Do Hayes R.N.) PRN Medication Order 02/03/2024 02/04/2024 02/05/2024 acetaminophen tablet 1,000 mg (TylenoL) 1,000 mg, oral, Every 6 hours PRN, fever, Starting on Sun02/05/24 at 1126 1147 (Given - Provid er: Do Hayes R.N. - Comment: given for fever) iopromide 370 mg iodine/mL injection 100 mL (Ultravist) 100 mL, intravenous, Once in imaging, contrast, Starting on e 02/05/24 at 0455, For 1 dose iopromide 370 mg iodine/mL injection 100 mL (Ultravist) 100 mL, intravenous, Once in imaging, contrast, Starting on Sun02/05/24 at 0455, For 1 dose sodium chloride 0.9 % flush 100 mL 100 mL, intravenous, Once in imaging, line care, Starting on Sun02/05/24 at 0455, For 1 dose sodium chloride 0.9 % injection 2-10 mL(Linked Group 1) 2-10 mL, intravenous, As needed, line care, Starting on Sun02/05/24 at 0110 Linked Groups Order Group 1: Place peripheral IV: No upper extremity site restrictions (COMPLETED) Upper extremity site restriction: No upper extremity site restrictions, Quantity of PIVs requested: One, STAT, Once, On Sun02/05/24 at 0111, For 1 occurrence And sodium chloride 0.9 % injection 2-10 mLJump to med 2-10 mL, intravenous, As needed, line care, Starting on Sun02/05/24 at 0110 documented in this encounter Additional Health Concerns Infection Onset Date Last Indicated Resolved Time COVID19 Pending 02/05/2024 02/05/2024 02/05/2024 3 :15 AM CDT documented as of this encounter Care Teams Fireworks [employer]er Relationship Specialty Start Date End Date Elsewhere, Pcp PCP - General Internal Medicine 03/29/22 documented as of this encounter
--- OUTSIDE RECORDS SUMMARY | 2024-02-09 04:40 | XMS_ITS | Clinical Summary ---
Author Organization [facility] Address [place], [place] [address] Care Team Providers Care Boat Engines Installer Name Role Phone Ben Cadena MD Primary Care Provider Edna Dickson Unavailable [phone] Renee Lopez Unavailable Allergies Active Allergy Reactions Criticality Noted Date Comments Allopurinol Rash Medium 09/13/2019 Amlodipine Edema,Tongue Swelling High 08/09/2017 Edema on 10mg, ok on 5mg. Edema on 10mg, ok on 5mg. Edema on 10mg, ok on 5mg. Edema on 10mg, ok on 5mg. Quinolones Other - Describe In Comment Field 07/02/2023 Qtc prolonged Shellfish Derived Hives,Itching 08/06/2023 Intermittently per pt report. Topiramate Rash,Hives Low 12/13/2020 Medications Medication Sig Dispensed Refills Start Date End Date Status aspirin (ECOTRIN) 81 mg enteric coated tablet Take 81 mg by mouth two times daily. 0 06/09/20 16 Suspended cyanocobalamin (VITAMIN B12) 1,000 mcg tablet Take 1,000 mcg by mouth once daily. Suspended pyridoxine, vitamin B6, (VITAMIN B-6) 100 mg tablet Take 100 mg by mouth once daily. Suspended nitroglycerin (NITROSTAT) 0.4 mg sublingual tabletIndications:Maeve nary artery disease involving creek coronary artery of creek heart with unstable angina pectoris (HC) Place 1 tablet under the tongue every 5 minutes if needed for Chest Pain (up to 3 doses). 1 Bottle 2 10/03/19 18 024 Discontinued (Pharmacist change per medication history (E-cancel not sent)) Insulin [place], Disposable, (bd insulin pen needle uf mini) 31 gauge x 3/16Indications:Contr olled type 2 diabetes mellitus with complication, without long-term current use of insulin (HC) REMOVE THE 2 COVERS ON THE INSULIN PEN NEEDLE BEFORE ADMINISTERING INSULIN DOSE. 200 Each 3 03/04/20 21 Suspended Additional Information lancetsIndications:Unc ontrolled type 2 diabetes mellitus with complication, with long-term current use of insulin Test 3 times daily 200 Each 3 03/04/20 21 Suspended Additional Information naloxone (Narcan) 4 mg/actuation nasal sprayIndications:RLS (restless legs syndrome) Inhale 1 Vichy into affected nostril(s) each time if needed for Patient Diff To Arouse or Resp Rate < 8 / min. Additional doses may be given every 2 to 3 minutes until emergency medical assistance arrives. 2 Each 02/23/20 22 Suspended Additional Information toddler lead teacher (Dexcom G6 Communications Controller) for continuous blood glucose monitor (CGM)Indications:Type 2 diabetes mellitus with complication, with long-term current use of insulin (HC) As directed. 1 Each 02/07/20 Suspended Additional Information cholecalciferol (VITAMIN D3) 2,000 unit capsuleIndications:Sec ondary renal hyperparathyroidism (HC) TAKE 1 CAPSULE BY MOUTH ONCE DAILY. 90 Capsule 2 03/30/20 Suspended Additional Information metoprolol succinate (TOPROL XL) 100 mg Sustained-Release tabletIndications:Acut e on chronic systolic congestive heart failure (HC),Chronic systolic heart failure (HC),Nonischemic cardiomyopathy (HC),Sinus tachycardia Take 1 Tablet (100 mg) by mouth once daily. 90 Tablet 2 04/24/20 Suspended Additional Information ertapenem sodium (ERTAPENEM IV) 1 g into PICC line every 24 hours for 21 days 024 Discontinued (Pharmacist change per medication history (E-cancel not sent)) sennosides-docusate (SENOKOT S) (8.6-50 mg) tablet Take 2 Tablets by mouth 2 times daily if needed. 11/22/ 024 Discontinued (Pharmacist change per medication history (E-cancel not sent)) acetaminophen (TYLENOL) 325 mg tablet Take 975 mg by mouth every 8 hours if needed. 06/13/20 024 Discontinued (Pharmacist change per medication history (E-cancel not sent)) oxyCODONE (ROXICODONE) 5 mg immediate release tablet Take 7.5 mg by mouth every 8 hours if needed. 06/13/20 024 Discontinued (Pharmacist change per medication history (E-cancel not sent)) cefepime (MAXIPIME) 1 gram injection Inject 1 g intravenous every 12 hours. Discontinued (Pharmacist change per medication history (E-cancel not sent)) OLANzapine (ZYPREXA) 2.5 mg tablet 2.5 mg at bedtime. 024 Discontinued (Pharmacist change per medication history (E-cancel not sent)) brimonidine (ALPHAGAN P) 0.15 % ophthalmic solution Place 1 Drop into both eyes two times daily. 024 Discontinued (Pharmacist change per medication history (E-cancel not sent)) calcium polycarbophiL (FIBERCON) 625 mg tablet Take 625 mg by mouth two times daily. Discontinued (Pharmacist change per medication history (E-cancel not sent)) polyethylene glycoL (MIRALAX) 17 gram/scoop powder Mix 17 g in liquid then take by mouth once daily if needed for Constipation. Discontinued (Pharmacist change per medication history (E-cancel not sent)) timolol hemihydrate (BETIMOL) 0.5 % ophthalmic solution Place 1 Drop into both eyes two times daily. 024 Discontinued (Pharmacist change per medication history (E-cancel not sent)) nortriptyline (PAMELOR) 25 mg capsuleIndications:Maria Antonia betic peripheral neuropathy (HC),Anxiety and depression Take 2 Capsules (50 mg) by mouth at bedtime. 180 Capsule 3 07/26/19 24 Suspended Additional Information Patient taking differently: 25 mgOral BEDTIME, Informant: Significant Other, Reported on 02/07/2024 blood sugar diagnostic (Ascensia CONTOUR) stripIndications:DM type 2 with diabetic peripheral neuropathy (HC) TEST 4 TIMES DAILY. 400 Each 3 07/29/19 24 Suspended Additional Information DULoxetine (CYMBALTA) 30 mg Delayed-release capsuleIndications:Anx iety and depression Take 1 Capsule (30 mg) by mouth once daily. 90 Capsule 3 08/10/19 24 Suspended Additional Information levothyroxine (SYNTHROID) 125 mcg tabletIndications:Hypo thyroidism (acquired) Take 1 Tablet (125 mcg) by mouth before breakfast. 90 Tablet 3 08/10/19 24 Suspended Additional Information pregabalin (LYRICA) 50 mg capsuleIndications:Maria Antonia betic peripheral neuropathy (HC),RLS (restless legs syndrome) Take 1 Capsule (50 mg) by mouth two times daily. 60 Capsule 5 08/10/19 24 Suspended Additional Information allopurinoL (ZYLOPRIM) 300 mg tabletIndications:Gout , unspecified cause, unspecified chronicity, unspecified site TAKE 1 TABLET (300 MG) BY MOUTH ONCE DAILY. START AFTER 4 WEEKS OF 200 MG DAILY. 90 Tablet 1 08/23/19 Suspended Additional Information triamcinolone 0.5% (ARISTOCORT) 0.5 % creamIndications:Venou s stasis dermatitis of right lower extremity Apply topically to affected area(s) three times daily. 45 g 09/07/19 24 Suspended Additional Information Patient taking differently:TopicalTID PRN, Informant: Significant Other, Reported on 02/07/2024 atorvastatin (LIPITOR) 40 mg tabletIndications:Cont rolled type 2 diabetes mellitus with complication, without long-term current use of insulin (HC) TAKE 1 TABLET (40 MG) BY MOUTH ONCE DAILY. 90 Tablet 2 09/24/19 Suspended Additional Information pantoprazole (PROTONIX) 40 mg delayed-release tabletIndications:Nicolás roesophageal reflux disease, unspecified whether esophagitis present TAKE 1 TABLET (40 MG) BY MOUTH ONCE DAILY. 90 Tablet 2 09/24/19 24 Suspended Additional Information insulin degludec, U-100, (Tresiba FlexTouch U-100) 100 unit/mL (3 mL) penIndications:Type 2 diabetes mellitus with stage 3b chronic kidney disease, with long-term current use of insulin (HC) Inject 110 units subcutaneous every morning. 102 mL 1 10/29/19 24 Suspended sensor (Axenic Dental G6 Sensor) for continuous blood glucose monitor (CGM)Indications:Type 2 diabetes mellitus with stage 3b chronic kidney disease, with long-term current use of insulin (HC) To be used to read blood sugars, follow tooling engineer directions. 9 Each 3 10/29/19 24 024 Discontinued (Reorder (E-cancel not sent)) transmitter (Axenic Dental G6 Transmitter) for continuous blood glucose monitor (CGM)Indications:Type 2 diabetes mellitus with stage 3b chronic kidney disease, with long-term current use of insulin (HC) As directed. Change every 3 months 1 Each 3 10/29/19 24 Suspended Additional Information insulin aspart, U-100, (NovoLOG Flexpen U-100 Insulin) 100 unit/mL (3 mL) penIndications:Type 2 diabetes mellitus with stage 3b chronic kidney disease, with long-term current use of insulin (HC) Inject 26 units subcutaneous before breakfast, 24 units before lunch, and 30 units before supper. Plus sliding scale up to 100 units daily 93 mL 1 10/29/19 24 Suspended Additional Information potassium chloride (Klor-Con M20) 20 mEq extended-release tablet (part/cryst)Indication s:Essential hypertension TAKE 1 TABLET (20 MEQ) BY MOUTH DAILY 90 Tablet 3 11/20/19 24 Suspended Additional Information Calcium Acetate (PHOS-LO) 667 mg capsuleIndications:Sec ondary renal hyperparathyroidism (HC) TAKE 1 CAPSULE BY MOUTH 3 TIMES DAILY WITH MEALS. 90 Capsule 8 11/23/19 24 Suspended Additional Information Patient taking differently: 667 mgOralBID, Informant: Significant Other, Reported on 02/07/2024 dulaglutide (TRULICITY) 0.75 mg/0.5 mL subcutaneous penIndications:DM type 2 with diabetic peripheral neuropathy (HC) Inject 0.75 mg subcutaneous once weekly. 6 mL 1 11/21/19 24 024 Discontinued (Reorder (E-cancel not sent)) metOLazone (ZAROXOLYN) 2.5 mg tabletIndications:Yajaira schemic cardiomyopathy (HC) TAKE TWO TABLETS BY MOUTH ON FRIDAYS 12 Tablet 01/03/20 24 Suspended Additional Information clobetasol 0.05% TOPICAL (TEMOVATE) 0.05 % external solutionIndications:Se borrheic dermatitis Apply topically to affected area(s) two times daily. 50 mL 2 12/19/19 24 024 Discontinued (Pharmacist change per medication history (E-cancel not sent)) torsemide (DEMADEX) 20 mg tabletIndications:Esse ntial hypertension Take 4 Tablets (80 mg) by mouth two times daily. 720 Tablet 3 12/24/19 24 Suspended Additional Information rOPINIRole (REQUIP) 4 mg tabletIndications:Diab etic peripheral neuropathy (HC),RLS (restless legs syndrome) Take 1 Tablet (4 mg) by mouth two times daily. 180 Tablet 1 01/09/20 24 Suspended Additional Information sensor (Axenic Dental G6 Sensor) for continuous blood glucose monitor (CGM)Indications:Type 2 diabetes mellitus with stage 3b chronic kidney disease, with long-term current use of insulin (HC) To be used to read blood sugars, follow tooling engineer directions. Change sensor every 10 days. 9 Each 3 01/23/20 24 Suspended Additional Information dulaglutide (TRULICITY) 0.75 mg/0.5 mL subcutaneous penIndications:DM type 2 with diabetic peripheral neuropathy (HC) Inject 0.75 mg subcutaneous once weekly. 6 mL 1 02/01/20 24 Suspended Additional Information acetaminophen (TYLENOL EXTRA STRGTH) 500 mg tablet Take 3 tablets (1500 mg) by mouth in the morning and 2 tablets (1000 mg) by mouth in the evening. Max acetaminophen dose: 4000mg in 24 hrs. Suspended sennosides-docusate (Senokot-S) (8.6-50 mg) tablet Take 1 Tablet by mouth two times daily. Suspended Active Problems Patient Care Coordination No te Formatting of this note migh t be different from the original. HF/Structural Research Eligibility Review Date: 03/11/19 Age: 58 y.o. Insurance: [employer] - [employer] Live Etiology: Mixed EF: 40 02/07/19 LVID:5.6 Valve/Imaging: no significant disease NYHA: II to III BNP: 153 03/29/18 Last HF admit: 01/07/18 Devices: HOUSE MOVING SUPERVISOR-D Comments: JEANINE, DM, HF: FID: No recent BNP or Hosp Guide-HF:No recent BNP or Hosp Reduce LAP:EXCLUDED REDUCE LA 3.9.cm Accucinch 5017: no d/t kidney disease Structural Alt Bart:No recent BNP/hosp/or Problem Noted Date Diagnosed Date Acute hypoxemic respiratory failure 02/09/2024 JEANINE (acute kidney injury) 02/09/2024 SVT (supraventricular tachycardia) 02/09/2024 Acute hypoxic respiratory failure 02/07/2024 Type 2 diabetes mellitus wit h hyperosmolarity without nonketotic hyperglycemic-hyperosmolar coma (NKHHC) 07/26/2023 Hallucinations 06/28/2023 Encephalopathy 06/28/2023 Altered mental status 06/28/2023 HFrEF (heart failure with reduced ejection fract ion) 09/04/2022 Tremulousness 02/17/2022 Buprenorphine adverse reaction 02/17/2022 Adenomatous colon polyp 08/17/2020 Overview: Colonoscopy 07/2020 1 cm polyp, repeat in 3 years Controlled substance agreement signed 04/20/2020 Overview: Signed 04/20/2020 at [facility] Radha Archer .................... 04/20/2020 2:55 PM Stage 3b chronic kidney disease (CKD) 07/03/2019 Bulging of lumbar interverte bral disc L4-5 & L5-S1 w facet arthropathy 04/17/2019 Anemia in stage 3 chronic kidney disease 019 Secondary renal hyperparathyroidism 11/28/2018 Adjustment disorder with mixed anxiety and depre ssed mood 02/11/2018 Chronic midline low back pain without sciatica 0 01/10/2018 Sinus tachycardia 09/23/2017 Uncontrolled type 2 diabetes mellitus with complication, with long-term current use of insulin 04/18/2017 Vitamin B6 deficiency 07/07/2016 Erectile dysfunction of organic origin 6 Rheumatoid arthritis, seropositive 06/09/2016 Glaucoma 06/09/2016 Essential hypertension 06/09/2016 Hypothyroidism (acquired) 06/09/2016 Gout, unspecified 06/09/2016 Morbid obesity with BMI of 45.0-49.9, adult 05/23 Diabetic peripheral neuropathy 06/09/2016 Inappropriate sinus tachycardia Contrast dye induced nephropathy Dyslipidemia LBBB (left bundle branch block) Coronary artery disease invo lving creek coronary artery without angina pectoris DM type 2 with diabetic peripheral neuropathy Resolved Problems Problem Noted Date Diagnosed Date Resolved Date Altered behavior 02/17/2022 09/04/2022 Confusion 02/17/2022 09/04/2022 Hypoglycemia 02/17/2022 09/04/2022 Chronic systolic heart failure 03/18/2020 09/04/2022 CKD (chronic kidney disease) stage 3, GFR 30-59 ml/min 11/28/2018 07/03/2019 Acute systolic (congestive) heart failure 09/25/2017 10/14/2018 Hypoxia 09/25/2017 09/04/2022 Alcohol use disorder, mild, in early remission 07/07/2016 02/14/2019 Controlled type 2 diabetes m ellitus with complication, without long-term current use of insulin 06/09/2016 04/18/2017 Acute kidney injury 10/30/19 20 NSTEMI (non-ST elevated myoc ardial infarction) 10/14/2018 Nonischemic cardiomyopathy 0 09/04/2022 Alcohol use disorder 023 Encounters Date Type Department Care Team Description 02/09/2024 2:35 AM CDT - Present Hospital Encounter [facility] [address] [place] [address] [facility], Hospitalist Tree Dominique MD 02/07/2024 7:52 AM CDT - 02/09/2024 1:20 AM CDT Hospital Encounter [facility] [address] [place] [address] Charlene Moeller DO Gorden Klukas, Brandi Hope, MD Nguyen, Thao Nguyen Le, NP Hypoxia (Primary Dx); SIRS (systemic inflammatory response syndrome) (HC) Discharge Disposition: Crit Acc Hosp w Planned Readmission 02/07/2024 Travel 02/05/2024 4:00 PM CDT Hospital Encounter [facility] [address] [place] [address] [facility], [facility] Hospitalists Of 01/31/2024 Orders Only [facility] [address] [place] [address] Ben Cadena MD Outside Order 01/25/2024 Telephone [facility] [address] [place] [address] Renee Lopez PA Prior Authorization (dulaglutide (TRULICITY) 0.75 mg/0.5 mL subcutaneous pen (DENIED)) 01/17/2024 Orders Only [facility] Scanner 1 scan: (1-Ord) [facility], RT KNEE INJECTION, 01/17/2024 01/15/2024 Refill [facility] [address] [facility] [address] [place] [address] Edna Dickson MBBS Refill Request (Dexcom G6 Sensor) 01/10/2024 Orders Only [facility] Scanner 1 scan: (1-Ord) INCOMING RECORDS-DIABETIC EYE, [facility], 01/10/2024 01/08/2024 Telephone [facility] [address] [place] [address] Ben Cadena MD 01/08/2024 Telephone [facility] [address] [place] [address] Kit Dubois, DO Follow Up (rOPINIRole (REQUIP) 4 mg tablet 60 Tablet 1 08/30/2023 - No/Sig: Take 1 Tablet (4 mg) by mouth two times daily.//) 12/25/2023 Orders Only [facility] Scanner 1 scan: (1-Ord) INCOMING RECORDS-DIABETIC EYE, [facility], 12/25/2023 12/20/2023 Refill [facility] [address] [place] [address] Chucho Harvey MD Refill Request (Torsemide 20mg) 12/19/2023 10:20 AM CDT Office Visit [facility] [address] [facility] [address] [place] [address] Jia Munguia PA Derm Problem (New scalp concern) 12/18/2023 Travel 12/16/2023 Refill [facility] [address] [place] [address] Edna Dickson MBBS Refill Request (Dexcom G6 Sensor) 12/13/2023 Refill [facility] [address] [place] [address] Darion So MD Refill Request (Metolazone) 12/06/2023 Travel 11/19/2023 Refill [facility] [address] [place] [address] Renee Lopez PA Refill Request 11/19/2023 Refill [facility] [address] [place] [address] Darion So MD Refill Request (Calcium Acetate) 11/19/2023 Refill [facility] [address] [place] [address] Ben Cadena MD Refill Request (Klor-con M20) 11/16/2023 Refill [facility] [address] [place] [address] Edna Dickson MBBS Refill Request (Trulicity) 11/12/2023 1:00 PM CDT Orders Only [facility] [address] [place] [address] Lab, [facility]; Outside Order (Dr. So) 11/12/2023 Travel from Last 3 Months Immunizations Name Administration Dates Next Due Tdap 02/12/2020 Zoster (Shingrix-RZV, recombinant) 09/18/2018, Family History Medical History Relation Name Comments Diabetes Father COPD Mother Kidney disease Paternal Grandmother Friedreich's ataxia Sister Anesthesia Problem No Family History Relation Name Status Comments Father Alive Mother Alive Paternal Grandmother Sister Alive Social History Tobacco Use Types Packs/Day Years Used Date Smoking Tobacco: Former Cigarettes 2 26 1 980 - 2005 Smokeless Tobacco: Never Tobacco Cessation:Counseling Given: No Alcohol Use Standard Drinks/Week Comments Yes 0 (1 standard drink = 0.6 oz pur e alcohol) 1 to 2 drinks per week PHQ-2 Answer Date Recorded PHQ-2 TOTAL SCORE 3 04/11/2021 Social Connections Answer Date Recorded Frequency of Communication with Friends and Fami ly 0 02/07/2024 Financial Resource Strain Answer Date R ecorded Difficulty of Paying Living Expenses 3 06/29/2023 Difficulty of Paying Living Expenses Not on file 06/29/2023 Food Insecurity Answer Date Recorded Worried About Running Out of Food in the Last Ye ar 1 06/29/2023 Transportation Needs Answer Date Record ed Lack of Transportation (Medical) 1 06/29/2023 Housing Stability Answer Date Recorded Unable to Pay for Housing in the Last Year 1 06/29/2023 Sex and Gender Information Value Date Recorded Sex Assigned at Not on file Gender Identity Not on file Sexual Orientation Not on file Obstetrics History Last Filed Vital Signs Vital Sign Reading Time Taken Comments Blood Pressure 107/64 02/09/2024 4:37 AM CDT Pulse 77 02/09/2024 4:37 AM CDT Temperature 36.4 ??C (97.6 ??F) 02/09/2024 12:36 AM C DT Respiratory Rate 18 02/08/2024 11:57 PM CDT Oxygen Saturation 89% 02/09/2024 3:56 AM CDT Inhaled Oxygen Concentration - - Weight 131.1 kg (289 lb) 02/07/2024 1:51 PM CDT Height 165.1 cm (5' 5) 02/07/2024 7:56 AM CDT Body Mass Index 48.09 02/07/2024 7:56 AM CDT Plan of Treatment Upcoming Encounters Date Type Department Care Team (Late st Contact Info) Description 03/04/2024 8:30 AM CDT Cardiac Device Check [facility] [place] [facility] [address] [place] [phone] 03/11/2024 8:00 AM CDT Office Visit [facility] [address] [place] [address] Ben Cadena MD [address] [place] [address] Health Maintenance Due Date Last Done Comments Pneumococcal series for age 6-64 (1 of 2 - PCV) 10/04/1966 Depression screening for age 12+ 04/15/2022 04/15/2021, 04/14/2021, 04/11/2021, Additional history exists COVID-19 vaccine series ( season) 2023 11/05/2020, 10/08/2020 Influenza for age 50-64 03/23/2024 BMI (ht and wt on same day) for age 18+ 10/08/2024 10/09/2023, 04/05/2023, 12/29/2022, Additional history exists Low Dose CT (for lung CA) ag e 50-80 02/06/2025 02/07/2024 Lipids for age 45-75 09/07/2028 09/07/2023, 09/04/2022, 08/18/2020, Additional history exists Tetanus booster 02/11/2030 02/12/2020 Colonoscopy through age 75 08/16/2030 08/16/2020, Hepatitis C screening for ag e 18-79 Completed 06/30/2016 Zoster (shingles) series for age 50+ Completed 09/18/2018, 07/26/2018 Tdap Completed 02/12/2020 HIV for age 15-65 Completed 09/04/2022 Procedures The patient is currently admitted. The information in this section might not be complete until the patient is discharged. Procedure Name Priority Date/Time Associated Diagnosis Comments BLOOD GAS,VENOUS STAT 02/08/2024 9:50 PM CDT GLUCOSE METER Routine 02/08/2024 9:10 PM CDT APTT PATRICIA 02/08/2024 8:55 PM CDT PROTIME-INR PATRICIA 02/08/2024 8:55 PM CDT D-DIMER,QUANTITATIVE STAT 02/08/2024 8:55 PM CDT XR CHEST 1 VIEW PORTABLE STAT 02/08/2024 7:08 PM CDT BLOOD GAS,VENOUS Today 02/08/2024 6:54 PM CDT GLUCOSE METER Routine 02/08/2024 6:06 PM CDT GLUCOSE METER Routine 02/08/2024 1:43 PM CDT RED CELL MORPHOLOGY PATRICIA 02/08/2024 1 2:46 PM CDT PLATELET ESTIMATE PATRICIA 02/08/2024 12: 46 PM CDT HEMATOCRIT PATRICIA 02/08/2024 12:46 PM CDT HEMOGLOBIN PATRICIA 02/08/2024 12:46 PM CDT PLATELET COUNT PATRICIA 02/08/2024 12:46 PM CDT WHITE BLOOD COUNT STAT 02/08/2024 12: 46 PM CDT LACTATE VENOUS STAT 02/08/2024 12:45 PM CDT CREATININE PATRICIA 02/08/2024 12:15 PM CDT BUN PATRICIA 02/08/2024 12:15 PM CDT PRO-BNP PATRICIA 02/08/2024 12:15 PM CDT C-REACTIVE PROTEIN STAT 02/08/2024 12 :15 PM CDT PROCALCITONIN STAT 02/08/2024 12:15 PM CDT POTASSIUM Timed 02/08/2024 12:15 PM CDT MRSA/SA PCR Today 02/08/2024 10:57 AM CDT SCAN-CARDIAC STRIP 02/08/2024 8: 04 AM CDT SCAN-CARDIAC STRIP 02/08/2024 8: 04 AM CDT EXTRA TUBE LAVENDER Today 02/08/2024 5 :42 AM CDT POTASSIUM Early AM 02/08/2024 5:42 AM CDT MAGNESIUM Early AM 02/08/2024 5:42 AM CDT CREATININE Early AM 02/08/2024 5:42 AM CDT SCAN-CARDIAC STRIP 02/08/2024 5: 03 AM CDT SCAN-CARDIAC STRIP 02/08/2024 4: 56 AM CDT EKG 12 LEAD STAT 02/08/2024 3:42 AM CDT SCAN-CARDIAC STRIP 02/08/2024 3: 09 AM CDT POTASSIUM Timed 02/07/2024 10:26 PM CDT GLUCOSE METER Routine 02/07/2024 10:00 PM CDT GLUCOSE METER Routine 02/07/2024 6:30 PM CDT POTASSIUM Today 02/07/2024 6:22 PM CDT ECHO TTE COMPLETE W CONTRAST Routine 02/07/2024 5:[address] CHEST PE STUDY STAT 02/07/2024 2:4 0 PM CDT D-DIMER,QUANTITATIVE Today 02/07/2024 12:45 PM CDT GLUCOSE METER Routine 02/07/2024 12:34 PM CDT SCAN-CARDIAC STRIP 02/07/2024 12 :25 PM CDT BLOOD CULTURE STAT 02/07/2024 10:27 AM CDT MAGNESIUM PATRICIA 02/07/2024 10:16 AM CDT BLOOD CULTURE STAT 02/07/2024 10:16 AM CDT TROPONIN T (HS) ONE TIME Timed 02/07/2024 10:16 AM CDT URINALYSIS MICROSCOPIC STAT 02/07/2024 9:59 AM CDT UA W/ SEDIMENT EXAM REFLEXED PER CRITERIA STAT 02/07/2024 9:59 AM CDT XR CHEST 1 VIEW PORTABLE STAT 02/07/2024 9:10 AM CDT LACTATE VENOUS Today 02/07/2024 8:29 AM CDT CBC WITH AUTO DIFFERENTIAL STAT 02/07/2024 8:22 AM CDT TROPONIN T (HS) ACUTE W/2HR REFLEX STAT 02/07/2024 8:22 AM CDT PRO-BNP STAT 02/07/2024 8:22 AM CDT BLOOD GAS,VENOUS STAT 02/07/2024 8:22 AM CDT MAGNESIUM STAT 02/07/2024 8:22 AM CDT CBC WITH AUTO DIFFERENTIAL STAT 02/07/2024 8:22 AM CDT BASIC METABOLIC PANEL STAT 02/07/2024 8:22 AM CDT EKG 12 LEAD STAT 02/07/2024 8:09 AM CDT INFLUENZA A/B PCR STAT 02/07/2024 8:0 3 AM CDT COVID-19 MOLECULAR Today 02/07/2024 8: 03 AM CDT SCAN-OPERATIVE/PROCE DURE REPORT 01/17/2024 12:00 AM CDT SCAN-EYE EXAM 01/10/2024 12:00 AM CDT SCAN-EYE EXAM 12/25/2023 12:00 AM CDT URINE ALBUMIN TO CREATININE RATIO, RANDOM Routine 11/12/2023 12:34 PM CDT Chronic kidney disease (CKD) stage G3b/A1, moderately decreased glomerular filtration rate (GFR) between 30-44 mL/min/1.73 square meter and albuminuria creatinine ratio less than 30 mg/g (HC) HEMOGLOBIN A1C Routine 11/12/2023 12:33 PM CDT Type 2 diabetes mellitus with stage 3b chronic kidney disease, with long-term current use of insulin (HC) BASIC METABOLIC PANEL Routine 11/12/2023 12:33 PM CDT Chronic kidney disease (CKD) stage G3b/A1, moderately decreased glomerular filtration rate (GFR) between 30-44 mL/min/1.73 square meter and albuminuria creatinine ratio less than 30 mg/g (HC) LIPID PANEL W REFLEX MEASURED LDL Routine 09/07/2023 9:55 AM SENIOR INTERNAL AUDITOR Hyperlipidemia, unspecified hyperlipidemia type LC HIV-1/O/2, 4TH GENERATION Routine 09/04/2022 9:18 AM SENIOR INTERNAL AUDITOR Screening for HIV (human immunodeficiency virus) COLONOSCOPY SCREENING Routine 08/16/2020 12:00 AM SENIOR INTERNAL AUDITOR Positive occult stool blood test ANTI HCV Routine 06/30/2016 8:46 AM SENIOR INTERNAL AUDITOR Chronic low back pain Diabetic peripheral neuropathy (HC) from Last 3 Months or Most Recently Relevant to Health Maintenance Results * (ABNORMAL) BLOOD GAS,VENOUS (02/08/2024 9:50 PM CDT) Only the most recent of3 resultswithin the time period is included. PH, VENOUS 7.35 7.32 - 7.43 02/08/2024 10:11 PM [facility] PCO2, VENOUS 57(H) 41 - 51 mmHg 02/08/2024 10:11 PM [facility] PO2, VENOUS 88(H) 35 - 40 mmHg 02/08/2024 10:11 PM [facility] HCO3,VENOUS 32(H) 22 - 29 mmol/L 02/08/2024 10:11 PM [facility] BASE EXCESS, VENOUS, POCT 4.3(H) -2.0 - 3.0 02/08/2024 10:11 PM [facility] O2 SATURATION, VENOUS 96(H) 70 - 75 % 02/08/2024 10:11 PM [facility] PATIENT TEMPERATURE 37.0 Degrees C 02/08/2024 10:11 PM CDT [facility] Blood VENOUS BLOOD SPECIMEN / Unknown Butterfly / Unknown 02/08/2024 9:50 PM CDT 02/08/2024 10:04 PM CDT Chico To MD CHEMISTRY Performing Organization Address [facility]/ZIP Co de Phone Number [facility] [address] [place] [address] * (ABNORMAL) GLUCOSE METER (02/08/2024 9:10 PM CDT) Only the most recent of6 resultswithin the time period is included. GLUCOSE METER 114(H) 65 - 100 mg/dL 02/09/2024 12:01 AM CDT [facility] Blood BLOOD SPECIMEN / Unknown 02/08/2024 9:10 PM CDT 02/09/2024 12:01 AM CDT Chico To MD CHEMISTRY Performing Organization Address [facility]/ZIP Co de Phone Number [facility] [address] [place] [address] * APTT (02/08/2024 8:55 PM CDT) APTT 35 28 - 36 sec 02/08/2024 9:11 PM CDT [facility] Blood BLOOD SPECIMEN / Unknown Butterfly / Unknown 02/08/2024 8:55 PM CDT 02/08/2024 8:57 PM CDT Narrative [facility] - 02/08/2024 9:11 PM CDT Therapeutic Range: 57-87 seconds Chico To MD HEMATOLOGY Performing Organization Address City/[facility]/ZIP Co de Phone Number [facility] [address] [place] [address] * (ABNORMAL) PROTIME-INR (02/08/2024 8:55 PM CDT) INR 1.1 <1.3 02/08/2024 9:11 PM CDT [facility] PROTIME 12.4(H) 10.3 - 12.3 sec 02/08/2024 9:11 PM CDT [facility] Blood BLOOD SPECIMEN / Unknown Butterfly / Unknown 02/08/2024 8:55 PM CDT 02/08/2024 8:57 PM CDT [facility] - 02/08/2024 9:11 PM CDT ?Therapeutic Range 2.0-3.0 for most anticoagulated patients 2.5-3.5 or 4.0 for high risk patients The INR is only used for patients on stable oral anticoagulant therapy. It makes no significant contribution to the diagnosis or treatment of patients whose Protime is prolonged for other reasons. INR results are increased when heparin levels exceed 1.0 U/mL, which corresponds to an aPTT >125 seconds if the patient is on UFH. Chico To MD HEMATOLOGY [facility] [address] [place] [phone] * (ABNORMAL) D-DIMER,QUANTITATIVE (02/08/2024 8:55 PM CDT) Only the most recent of2 resultswithin the time period is included. [facility] D-DIMER,QUANTI TATIVE 2.56 See comment FEU mcg/mL 02/08/2024 9:11 PM CDT [facility] D-DIMER INTERP Abnormal( A) 02/08/2024 9:11 PM CDT [facility] Blood BLOOD SPECIMEN / Unknown Butterfly / Unknown 02/08/2024 8:55 PM CDT 02/08/2024 8:57 PM CDT [facility] - 02/08/2024 9:11 PM CDT The cut off value for exclusion of Deep Vein Thrombosis and / or Pulmonary Embolism is 0.50 FEU mcg/mL For patients greater than 50 years of age the upper limit is age dependent and was calculated with the formula: ?? (PATIENT AGE x 0.01) FEU mcg/mL = Upper limit of normal range Chico To MD HEMATOLOGY [facility] [address] [facility] [place] [address] * XR CHEST 1 VIEW PORTABLE (02/08/2024 7:08 PM CDT) Only the most recent of2 resultswithin the time period is included. Anatomical Region Laterality Modality HEART, THORAX, CHEST Digital Rad iography 02/08/2024 8:22 PM CDT Impressions 02/08/2024 8:22 PM CDT New mild bilateral interstitial opacities, may reflect pulmonary edema. Dictated by Chas Newman MD @ 02/08/2024 8:22:55 PM (Electronically Signed) Narrative 02/08/2024 8:22 PM CDT For Patients: ??As a result of the Cures Act, medical imaging exams and procedure reports are released immediately into your electronic medical record. ??You may view this report before your referring provider. ??If you have questions, please contact your health care provider. INDICATION: Shortness of breath. TECHNIQUE: Chest 1 view(s) COMPARISON: Chest radiograph dated 02/07/2024. FINDINGS: Stable AICD. Stable spinal stimulator. Stable cardiomediastinal silhouette and pulmonary vasculature. New mild bilateral interstitial opacities. No layering pleural effusion. No pneumothorax. No acute chest wall abnormality. Procedure Note Chas Newman MD - 02/08/2024 For Patients: As a result of the Cures Act, medical imagingexams and procedure reports are released immediately into your electronicmedical record. You may view this report before your referring provider.If you have questions, please contact your health care provider. INDICATION: Shortness of breath. TECHNIQUE: Chest 1 view(s) COMPARISON: Chest radiograph dated 02/07/2024. FINDINGS: Stable AICD. Stable spinal stimulator. Stable cardiomediastinal silhouetteand pulmonary vasculature. New mild bilateral interstitial opacities. No layering pleural effusion. No pneumothorax. No acute chest wall abnormality. IMPRESSION: New mild bilateral interstitial opacities, may reflect pulmonary edema. Dictated by Chas Newman MD @ 02/08/2024 8:22:55 PM (Electronically Signed) Glenda Rousseau REGIONAL MANAGER GENERAL IMAGING * (ABNORMAL) RED CELL MORPHOLOGY (02/08/2024 12:46 PM CDT) [facility] POLYCHROMASIA Slight 02/08/2024 9:04 PM CDT [facility] RBC COMMENT Present(A) RBC morphology appears normal, RBC morphology within normal limits for newborns. 02/08/2024 9:04 PM CDT [facility] LARGE PLATELETS Present 9:04 PM CDT [facility] Blood BLOOD SPECIMEN / Unknown Butterfly / Unknown 02/08/2024 12:46 PM CDT 02/08/2024 12:51 PM CDT [facility] - 02/08/2024 9:04 PM CDT Obtain before initiating IV heparin therapy if not done within previous 24 hours. Chico To MD HEMATOLOGY Performing Organization Address City/[facility] Co de Phone Number [facility] [address] [place] [phone] * (ABNORMAL) PLATELET ESTIMATE (02/08/2024 12:46 PM CDT) [facility] PLATELET ESTIMATE Decreased (A) Adequate, No estimate 02/08/2024 9:04 PM CDT [facility] Blood BLOOD SPECIMEN / Unknown Butterfly / Unknown 02/08/2024 12:46 PM CDT 02/08/2024 12:51 PM CDT [facility] - 02/08/2024 9:04 PM CDT Obtain before initiating IV heparin therapy if not done within previous 24 hours. Chico To MD HEMATOLOGY Performing Organization Address City/[facility] Co de Phone Number [facility] [address] [place] [address] * (ABNORMAL) PLATELET COUNT (02/08/2024 12:46 PM CDT) Pathologist [facility] PLATELET COUNT 103(L) 140 - 440 thou/cu mm 02/08/2024 9:03 PM CDT [facility] MPV 10.9 6.5 - 11.0 fL 02/08/2024 9:03 PM CDT [facility] Blood BLOOD SPECIMEN / Unknown Butterfly / Unknown 02/08/2024 12:46 PM CDT 02/08/2024 12:51 PM CDT Narrative [facility] - 02/08/2024 9:03 PM CDT Obtain before initiating IV heparin therapy if not done within previous 24 hours. Chico To MD HEMATOLOGY [facility] [address] [place] [address] * WHITE BLOOD COUNT (02/08/2024 12:46 PM CDT) [facility] WHITE BLOOD COUNT 7.8 4.5 - 11.0 thou/cu mm 02/08/2024 12:56 PM CDT [facility] Blood BLOOD SPECIMEN / Unknown Butterfly / Unknown 02/08/2024 12:46 PM CDT 02/08/2024 12:51 PM CDT Chico To MD HEMATOLOGY [facility] [address] [place] [address] * (ABNORMAL) HEMOGLOBIN (02/08/2024 12:46 PM CDT) Pathologist [facility] HEMOGLOBIN 11.8(L) 13.5 - 17.5 g/dL 02/08/2024 9:03 PM CDT [facility] MCV 101(H) 80 - 100 fL 02/08/2024 9:03 PM CDT [facility] Blood BLOOD SPECIMEN / Unknown Butterfly / Unknown 02/08/2024 12:46 PM CDT 02/08/2024 12:51 PM CDT [facility] - 02/08/2024 9:03 PM CDT Obtain before initiating IV heparin therapy if not done within previous 24 hours. Chico To MD HEMATOLOGY Performing Organization Address [facility] Co de Phone Number [facility] [address] [place] [address] * (ABNORMAL) HEMATOCRIT (02/08/2024 12:46 PM CDT) HEMATOCRIT 36.4(L) 37.0 - 53.0 % 02/08/2024 9:03 PM CDT [facility] Blood BLOOD SPECIMEN / Unknown Butterfly / Unknown 02/08/2024 12:46 PM CDT 02/08/2024 12:51 PM CDT [facility] - 02/08/2024 9:03 PM CDT Obtain before initiating IV heparin therapy if not done within previous 24 hours. Chico To MD HEMATOLOGY Performing Organization Address [facility] de Phone Number [facility] [address] [place] [phone] * LACTATE VENOUS (02/08/2024 12:45 PM CDT) Only the most recent of2 resultswithin the time period is included. LACTATE,VENOUS 0.7 0.5 - 2.0 mmol/L 02/08/2024 1:11 PM CDT [facility] Blood BLOOD SPECIMEN / Unknown Butterfly / Unknown 02/08/2024 12:45 PM CDT 02/08/2024 12:51 PM CDT Chico To MD CHEMISTRY Performing Organization Address [facility] Co de Phone Number [facility] [address] [place] [address] * (ABNORMAL) PROCALCITONIN (02/08/2024 12:15 PM CDT) [facility] Signature PROCALCITONIN 0.87(H) ng/ml 02/08/2024 12:58 PM CDT [facility] Blood BLOOD SPECIMEN / Unknown Butterfly / Unknown 02/08/2024 12:15 PM CDT 02/08/2024 12:30 PM CDT [facility] - 02/08/2024 12:58 PM CDT Procalcitonin for initial assessment of Lower Respiratory Tract Infection: Results Interpretation <0.10 ng/mL Antibiotic therapy strongly discoraged. ??Indicates absent of bacterial infection. * 0.10 - 0.25 ng/mL Antibiotic therapy discouraged. ??Bacterial infection unlikely. * 0.26 - 0.50 ng/mL Antibiotic therapy encouraged. ??Bacterial infection possible. >0.50 ng/mL Antibiotic therapy strongly encouraged. ??Suggestive of presence of bacterial infection. *Antibiotic therapy should be considered regardless of PCT result if the patient is clinically unstable, is at high risk for adverse outcome, has strong evidence of bacterial pathogen, or the clinical context indicates antibiotic therapy is warranted. ??If antibiotics are withheld, reassess if symptoms persist/worsen and/or repeat PCT measurement within 6-24 hours. ? In order to assess treatment success and to support a decision to discontinue antibiotic therapy, follow up samples should be tested once every 1-2 days, based upon physician discretion taking into account patient's evolution and progress. Procalcitonin for initial assessment of severe sepsis risk: Results Interpretation <0.5 ng/ml A PCT level below 0.5 ng/ml on the first day of ICU admission is associated with a low risk for progression to severe sepsis and/or septic shock. > 2.0 ng/mL A PCT level above 2.0 ng/mL on the first day of ICU admission is associated with a high risk for progression to severe sepsis and/or septic shock. Note: Concentrations < 0.5 ng/mL do not exclude an infection, on account of localized infections (without systemic signs) which can be associated with such low concentrations, or a systemic infection in its initial stages(< 6 hours). Furthermore, increased procalcitonin can occur without infection. PCT concentrations between 0.5 and 2.0 ng/mL should be interpreted taking into account the patient's history. It is recommended to retest PCT within 6-24 hours if any concentrations < 2 ng/mL are obtained. Chico To MD SEND OUTS Performing Organization Address [facility] Co de Phone Number [facility] [address] [place] [address] * (ABNORMAL) BUN (02/08/2024 12:15 PM CDT) BUN 48(H) 8 - 23 mg/dL 02/08/2024 8:57 PM CDT [facility] Blood BLOOD SPECIMEN / Unknown Butterfly / Unknown 02/08/2024 12:15 PM CDT 02/08/2024 12:18 PM CDT Chico To MD CHEMISTRY Performing Organization Address [facility] de Phone Number [facility] [address] [place] [address] * POTASSIUM (02/08/2024 12:15 PM CDT) Only the most recent of4 resultswithin the time period is included. POTASSIUM 4.2 3.5 - 5.1 mmol/L 02/08/2024 12:44 PM CDT [facility] Blood BLOOD SPECIMEN / Unknown Butterfly / Unknown 02/08/2024 12:15 PM CDT 02/08/2024 12:18 PM CDT Glenda Rousseau NP CHEMISTRY Performing Organization Address [facility] Co de Phone Number [facility] [address] [place] [address] * (ABNORMAL) CREATININE (02/08/2024 12:15 PM CDT) Only the most recent of2 resultswithin the time period is included. eGFR 26(L) >90 mL/min/1.7 3m2 02/08/2024 8:54 PM CDT [facility] Comment:As of 2021, eG FR is calculated by the CKD-EPI creatinine equation without race adjustment. ??eGFR can be influenced by muscle mass, exercise, and diet. ??The reported eGFR is an estimation only and is only applicable if the renal function is stable. CREATININE 2.72(H) 0.70 - 1.20 mg/dL 02/08/2024 8:54 PM CDT [facility] Blood BLOOD SPECIMEN / Unknown Butterfly / Unknown 02/08/2024 12:15 PM CDT 02/08/2024 12:18 PM CDT Chico To MD CHEMISTRY Performing Organization Address City/[facility]/ZIP Co de Phone Number [facility] [address] [place] [address] * (ABNORMAL) C-REACTIVE PROTEIN (02/08/2024 12:15 PM CDT) [facility] C-REACTIVE PROTEIN 11.2(H) <0.5 mg/dL 02/08/2024 12:44 PM CDT [facility] Blood BLOOD SPECIMEN / Unknown Butterfly / Unknown 02/08/2024 12:15 PM CDT 02/08/2024 12:18 PM CDT Chico To MD CHEMISTRY [facility] [address] [place] [address] * (ABNORMAL) PRO-BNP (02/08/2024 12:15 PM CDT) Only the most recent of2 resultswithin the time period is included. PRO-BNP 2,316(H) <125 pg/mL 02/08/2024 8:57 PM CDT [facility] Blood BLOOD SPECIMEN / Unknown Butterfly / Unknown 02/08/2024 12:15 PM CDT 02/08/2024 12:18 PM CDT Narrative [facility] - 02/08/2024 8:57 PM CDT The following cut-points have been suggested for the use of proBNP for the diagnostic evaluation of heart failure (HF) in patient with acute dyspnea. Patients with eGFR >= 60 Diagnosis (rule in CHF) ? <50 Years Old ?450 pg/mL 50 - 75 Years Old ?900 pg/mL >75 Years Old ? 1800 pg/mL Exclusion (rule out CHF) Age Independent ?300 pg/mL A cutoff of 1200 pg/mL for patients with an eGFR <60 yields a diagnostic sensitivity of 89% and specificity of 72% for acute congestive heart failure. ? Chico Nadya To MD SEND OUTS [facility] [address] [place] [phone] * MRSA/SA PCR (02/08/2024 10:57 AM CDT) Pathologist [facility] MRSA DNA PCR Negative Negative 02/08/2024 11:29 PM CDT [facility] STAPHYLOCOCCUS AUREUS PCR Negative Negative 02/08/2024 11:29 PM CDT [facility] Other SPECIMEN FROM INTERNAL NOSE / Unknown Non-Blood / Unknown 02/08/2024 10:57 AM CDT 02/08/2024 11:08 AM CDT Narrative [facility] - 02/08/2024 11:29 PM CDT Test result does not preclude MRSA or SA nasal colonization. Maninder Rocha NP MICROBIOLOG Y [facility] [address] [place] [address], * SCAN-CARDIAC STRIP (02/08/2024 8:04 AM CDT) Scanner OTHER * SCAN-CARDIAC STRIP (02/08/2024 8:04 AM CDT) Scanner OTHER * EXTRA TUBE LAVENDER (02/08/2024 5:42 AM CDT) Blood BLOOD SPECIMEN / Unknown Extra Tube / Unknown 02/08/2024 5:42 AM CDT 02/08/2024 6:31 AM CDT Doctor Unknown LABORATORY Performing Organization Address [facility] Co de Phone Number [facility] [address] [place] [address] * MAGNESIUM (02/08/2024 5:42 AM CDT) Only the most recent of3 resultswithin the time period is included. MAGNESIUM 1.7 1.6 - 2.4 mg/dL 02/08/2024 6:52 AM CDT [facility] Blood BLOOD SPECIMEN / Unknown Butterfly / Unknown 02/08/2024 5:42 AM CDT 02/08/2024 6:23 AM CDT Cortes Earl RN CHEMISTRY Performing Organization Address City/[facility]/ZIP Co de Phone Number [facility] [address] [place] [address] * SCAN-CARDIAC STRIP (02/08/2024 5:03 AM CDT) Scanner OTHER * SCAN-CARDIAC STRIP (02/08/2024 4:56 AM CDT) Scanner OTHER * SCAN-CARDIAC STRIP (02/08/2024 3:09 AM CDT) Scanner OTHER * ECHO TTE COMPLETE W CONTRAST (02/07/2024 5:49 PM CDT) AORTIC VALVE MEAN PG 4 mmHg EJECTION FRACTION 58 % LVEDD 5.8 cm EJECTION FRACTION 55 - 60% Anatomical Region Laterality Modality Ultrasound, Othe r 02/07/2024 4:34 PM CDT Narrative 02/08/2024 7:39 AM CDT ECHOCARDIOGRAM ASHLEY WALKER ? Accession#: ?? [id number] : ?1960 63 years Study Date: ?? 02/07/2024 4:34:10 PM Gender: M ?BP: ? 132/63 mmHg Height: 165.00 cm ?BSA: ?2.31 m? ? ? Weight: 131.00 kg ?Tech: ? MBW ? Referring MD: CHICO TO Site: ? [facility] ([facility] Reading Location: [facility] Patient Location: Inpatient. Procedure: 2D w/ Contrast, Color Doppler and Spectral Doppler. Indication for study: Dyspnea/ SOB/ Tachypnea/ Wheezing Cardiac Rhythm: Ventricular paced.Study quality: Technically limited. Final Impressions: 1. Technically limited exam. 2. Upper limit of normal LV size, not well visualized wall thickness (probably normal), normal global systolic function with an estimated EF of 55%. 3. Right ventricular cavity size is at the upper limit of normal, global systolic RV function is normal. 4. The mitral valve is not well visualized, mild mitral regurgitation. 5. Echo contrast was administered to enhance visualization of all left ventricular segments. 6. No pericardial effusion. Chamber Sizes and Function Normal left ventricular size, not well visualized wall thickness, normal global systolic function with an estimated EF of %. Left ventricular wall motion not well visualized. Left atrial size is normal. Right ventricular cavity size is normal, global systolic RV function is normal. The right atrium is normal. Right atrial area is 13 cm? ? ?. The pulmonary artery is not well visualized. The sinus of Valsalva is normal sized. The ascending aorta is normal sized. Valves, RV Pressures and Diastolic Function The aortic valve is not well visualized , no stenosis and no regurgitation. The mitral valve is not well visualized, mild mitral regurgitation. Indeterminate pattern of LV diastolic filling. The tricuspid valve is not well visualized. Tricuspid regurgitation is trace regurgitation. Unable to assess right ventricular systolic pressure. The pulmonic valve is not well visualized. No pulmonary regurgitation. Masses, Effusion, Shunts There is no pericardial effusion. The inferior vena cava is dilated, respiratory size variation less than 50%. No left to right shunting was detected by limited color flow Doppler interrogation of the interatrial septum. MEASUREMENTS AND CALCULATIONS 2-D Measurements and LV Function: LVID (d) 5.8 cm LV FS% (2D) ?? 35 % LVID (s) 3.8 cm LVOT diameter 2.7 cm IVS (d) ??1.1 cm HR ?100 bpm LVPW (d) 1.1 cm LA Vol index ??25 ml/m2 Ao Sinus 4.2 cm RA area ? 13 cm? ? ? Asc Ao ?? 3.0 cm RV Max 4C (d) 3.7 cm LA ? 4.5 cm Diastology: Mitral ?Tissue Doppler E Peak 0.9 m/s ??e', Septum ? 0.07 m/s A Peak 0.9 m/s ??e', Lateral ?0.08 m/s E/A ?1.1 ?E/e' Average ?? 12.24 DT ? 135 msec Aortic Valve: Vmax ? 1.3 m/s ??GLORIA (V) ?? 4.12 cm? ? ? VTI ?0.22 m ?? GLORIA (I) ?? 4.24 cm? ? ? LVOT V max ? 0.9 m/s ??Max PG ?7 mmHg LVOT VTI ? 0.16 m ?? Mean PG ?? 4 mmHg SV ? 92 ml ?Dim Index 0.76 SV index ? 40 ml/m? ? ? CO ?9.2 l/min AV Ejection Time 0.24 sec CI ?4.0 l/min/m? ? ? AV Flow Rate ? 386 ml/s Mitral Valve: MVA ? 5.6 cm? ? ? MV P 1/2 ??39 msec MV Mean G 3 mmHg MV VTI ?0.20 m Tricuspid Valve and estimated PA pressures: TAPSE 2.0 cm Contrast documentation: 8 ml diluted Definity, lot #[id number], [facility]# [id number] was administered peripherally to enhance visualization of all left ventricular segments. . This study was interpreted by an [facility] accredited facility. CC: Ben Cadena. ??Final ?? Procedure Note Papo Rock MD - 02/08/2024 ECHOCARDIOGRAM ASHLEY WALKER : 1960 63 years Study Date: 02/07/2024 4:34:10 PM Gender: M BP: 132/63 mmHg Height: 165.00 cm BSA: 2.31 m? ? ? Weight: 131.00 kg Tech: HALLIE Referring MD: CHICO TO Site: [facility] ([place]) Reading Location: [place] Patient Location: Inpatient. Procedure: 2D w/ Contrast, Color Doppler and Spectral Doppler. Indication for study: Dyspnea/ SOB/ Tachypnea/ Wheezing Cardiac Rhythm: Ventricular paced.Study quality: Technically limited. Final Impressions: 1. Technically limited exam. 2. Upper limit of normal LV size, not well visualized wall thickness(probably normal), normal global systolic function with an estimated EF of55%. 3. Right ventricular cavity size is at the upper limit of normal, globalsystolic RV function is normal. 4. The mitral valve is not well visualized, mild mitral regurgitation. 5. Echo contrast was administered to enhance visualization of all leftventricular segments. 6. No pericardial effusion. Chamber Sizes and Function Normal left ventricular size, not well visualized wall thickness, normalglobal systolic function with an estimated EF of %. Left ventricular wallmotion not well visualized. Left atrial size is normal. Right ventricularcavity size is normal, global systolic RV function is normal. The rightatrium is normal. Right atrial area is 13 cm? ? ?. The pulmonary artery isnot well visualized. The sinus of Valsalva is normal sized. The ascendingaorta is normal sized. Valves, RV Pressures and Diastolic Function The aortic valve is not well visualized , no stenosis and noregurgitation. The mitral valve is not well visualized, mild mitralregurgitation. Indeterminate pattern of LV diastolic filling. Thetricuspid valve is not well visualized. Tricuspid regurgitation is traceregurgitation. Unable to assess right ventricular systolic pressure. Thepulmonic valve is not well visualized. No pulmonary regurgitation. Masses, Effusion, Shunts There is no pericardial effusion. The inferior vena cava is dilated,respiratory size variation less than 50%. No left to right shunting wasdetected by limited color flow Doppler interrogation of the interatrialseptum. MEASUREMENTS AND CALCULATIONS 2-D Measurements and LV Function: LVID (d) 5.8 cm LV FS% (2D) 35 % LVID (s) 3.8 cm LVOT diameter 2.7 cm IVS (d) 1.1 cm HR 100 bpm LVPW (d) 1.1 cm LA Vol index 25 ml/m2 Ao Sinus 4.2 cm RA area 13 cm? ? ? Asc Ao 3.0 cm RV Max 4C (d) 3.7 cm LA 4.5 cm Diastology: Mitral Tissue Doppler E Peak 0.9 m/s e', Septum 0.07 m/s A Peak 0.9 m/s e', Lateral 0.08 m/s E/A 1.1 E/e' Average 12.24 DT 135 msec Aortic Valve: Vmax 1.3 m/s GLORIA (V) 4.12 cm? ? ? VTI 0.22 m GLORIA (I) 4.24 cm? ? ? LVOT V max 0.9 m/s Max PG 7 mmHg LVOT VTI 0.16 m Mean PG 4 mmHg SV 92 ml Dim Index 0.76 SV index 40 ml/m? ? ? CO 9.2 l/min AV Ejection Time 0.24 sec CI 4.0 l/min/m? ? ? AV Flow Rate 386 ml/s Mitral Valve: MVA 5.6 cm? ? ? MV P 1/2 39 msec MV Mean G 3 mmHg MV VTI 0.20 m Tricuspid Valve and estimated PA pressures: TAPSE 2.0 cm Contrast documentation: 8 ml diluted Definity, lot #[id number], [facility]#[id number] was administered peripherally to enhance visualization of allleft ventricular segments. . This study was interpreted by an [facility] accredited facility. CC: Ben Cadena. Final [place] To MD ECHO ORD * CT CHEST PE STUDY (02/07/2024 2:40 PM CDT) Anatomical Region Laterality Modality CHEST, THORAX, HEART Computed To mography 02/07/2024 3:31 PM CDT Impressions 02/07/2024 3:31 PM CDT 1. ??Within the limitations of suboptimal pulmonary artery opacification and motion artifact, there is no evidence of pulmonary embolus. Distal segmental and subsegmental pulmonary emboli are not excluded based on this exam. 2. No acute airspace disease. Dictated by Kenan Carmichael MD @ 02/07/2024 3:11:50 PM Please note that all CT scans at this facility use dose modulation, iterative reconstruction, and/or weight-based dosing when appropriate to reduce radiation dose to as low as reasonably achievable. Dictated by: Kenan Carmichael MD @ 02/07/2024 15:31:58 (Electronically Signed) Narrative 02/07/2024 3:31 PM CDT For Patients: ??As a result of the Cures Act, medical imaging exams and procedure reports are released immediately into your electronic medical record. ??You may view this report before your referring provider. ??If you have questions, please contact your health care provider. INDICATION: Shortness of breath. TECHNIQUE: CT chest pulmonary angiogram acquired with 100 ml of Omnipaque 350 IV contrast. COMPARISON: None. FINDINGS: Cardiovascular structures: CT pulmonary angiogram demonstrates suboptimal opacification of the pulmonary arteries. Within the limitations of suboptimal pulmonary artery opacification and motion artifact, there is no evidence of pulmonary embolus. Distal segmental and subsegmental pulmonary emboli are not excluded based on this exam. ??Thoracic aorta is normal in caliber. Coronary artery calcifications and indwelling intracardiac device/pacemaker. Heart size is within normal limits. Mediastinum and lucila: No pathologic lymphadenopathy. Lungs: No pneumothorax. Mild secretions in the trachea. Central airways are otherwise patent. Lungs are clear. Pleura and pericardium: No effusions. Chest wall and axilla: Unremarkable. Bones: Mild degenerative changes. Indwelling neurostimulator. No acute or suspicious osseous abnormality. Upper abdomen: Unremarkable. Procedure Note Kenan Carmichael, DO - 02/07/2024 For Patients: As a result of the Cures Act, medical imagingexams and procedure reports are released immediately into your electronicmedical record. You may view this report before your referring provider.If you have questions, please contact your health care provider. INDICATION: Shortness of breath. TECHNIQUE: CT chest pulmonary angiogram acquired with 100 ml of Omnipaque 350 IVcontrast. COMPARISON: None. FINDINGS: Cardiovascular structures: CT pulmonary angiogram demonstrates suboptimalopacification of the pulmonary arteries. Within the limitations of suboptimal pulmonary artery opacification andmotion artifact, there is no evidence of pulmonary embolus. Distalsegmental and subsegmental pulmonary emboli are not excluded based on thisexam. Thoracic aorta is normal in caliber. Coronary artery calcificationsand indwelling intracardiac device/pacemaker. Heart size is within normallimits. Mediastinum and lucila: No pathologic lymphadenopathy. Lungs: No pneumothorax. Mild secretions in the trachea. Central airwaysare otherwise patent. Lungs are clear. Pleura and pericardium: No effusions. Chest wall and axilla: Unremarkable. Bones: Mild degenerative changes. Indwelling neurostimulator. No acute orsuspicious osseous abnormality. Upper abdomen: Unremarkable. IMPRESSION: 1. Within the limitations of suboptimal pulmonary artery opacificationand motion artifact, there is no evidence of pulmonary embolus. Distalsegmental and subsegmental pulmonary emboli are not excluded based on thisexam. 2. No acute airspace disease. Dictated by Kenan Carmichael MD @ 02/07/2024 3:11:50 PM Please note that all CT scans at this facility use dose modulation,iterative reconstruction, and/or weight-based dosing when appropriate toreduce radiation dose to as low as reasonably achievable. Dictated by: Kenan Carmichael MD @ 02/07/2024 15:31:58 (Electronically Signed) Charlene Moeller DO CT * SCAN-CARDIAC STRIP (02/07/2024 12:25 PM CDT) Scanner OTHER * (ABNORMAL) TROPONIN T (HS) ONE TIME (02/07/2024 10:16 AM CDT) Pathologist [facility] TROPONIN T HS 43(H) 6-15 ng/L ng/L 02/07/2024 10:54 AM CDT [facility] Blood BLOOD SPECIMEN / Unknown Butterfly / Unknown 02/07/2024 10:16 AM CDT 02/07/2024 10:31 AM CDT Charlene Moeller DO CHEMISTRY [facility] [address] [place] [address] * (ABNORMAL) URINALYSIS MICROSCOPIC (02/07/2024 9:59 AM CDT) Pathologist [facility] RBC 3-5(A) 0-2, None Seen /HPF 02/07/2024 10:26 AM [facility] WBC 0-2 0-2, 3-5, None Seen /HPF 02/07/2024 10:26 AM [facility] BACTERIA None Seen None Seen, Rare, Few Bacteria/ HPF 02/07/2024 10:26 AM [facility] EPITHELIAL CELLS Few None Seen, Few Epi/HPF 02/07/2024 10:26 AM [facility] Urine URINE SPECIMEN / Unknown Non-Blood / Unknown 02/07/2024 9:59 AM CDT 02/07/2024 10:02 AM T Charlene Moeller DO URINE Performing Organization Address [facility]/State/ZIP Co de Phone Number [facility] [address] [place] [phone] * (ABNORMAL) UA W/ SEDIMENT EXAM REFLEXED PER CRITERIA (02/07/2024 9:59 AM CDT) COLOR Yellow Yellow Color 02/07/2024 10:08 AM [facility] CLARITY Clear Clear Clarity 02/07/2024 10:08 AM [facility] SPECIFIC GRAVITY,URINE 1.015 1.010, 1.015, 1.020, 1.025 02/07/2024 10:08 AM [facility] PH,URINE 6.0 6.0, 7.0, 8.0, 5.5, 6.5, 7.5, 8.5 02/07/2024 10:08 AM [facility] UROBILINOGEN, QUALITATIVE Normal Normal EU/dl 02/07/2024 10:08 AM [facility] PROTEIN, URINE 30(A) Negative mg/dL 02/07/2024 10:08 AM [facility] GLUCOSE, URINE Negative Negative mg/dL 02/07/2024 10:08 AM [facility] KETONES,URINE Negative Negative mg/dL 02/07/2024 10:08 AM [facility] BILIRUBIN,URI NE Negative Negative 02/07/2024 10:08 AM CDT [facility] OCCULT BLOOD,URINE Small(A) Negative 02/07/2024 10:08 AM CDT [facility] NITRITE Negative Negative 02/07/2024 10:08 AM CDT [facility] LEUKOCYTE ESTERASE Negative Negative 02/07/2024 10:08 AM CDT [facility] Urine URINE SPECIMEN / Unknown Non-Blood / Unknown 02/07/2024 9:59 AM CDT 02/07/2024 10:02 AM CDT Charlene Jefferyrosa mariacharissa DO URINE [facility] [address] [place] [address] * (ABNORMAL) TROPONIN T (HS) ACUTE W/2HR REFLEX (02/07/2024 8:22 AM CDT) TROPONIN T HS 43(H) 6-15 ng/L ng/L 02/07/2024 8:52 AM CDT [facility] Blood VENOUS BLOOD SPECIMEN / Unknown Butterfly / Unknown 02/07/2024 8:22 AM CDT 02/07/2024 8:25 AM CDT Narrative [facility] - 02/07/2024 8:52 AM CDT hs-cTnT (Elecsys Troponin T Gen 5) concentration (s) above the sex-specific 99th percentile (16 ng/L or greater for males or 11 ng/L or greater for females) are indicative of myocardial injury. If initial hs-cTnT <=100 ng/L at presentation, a 0h/2h ABSOLUTE (ng/L) delta change (rising or falling) of >=10 ng/L suggests a significant change, whereas a 0h/2h delta change <=3 ng/L suggests no significant change. If initial hs-cTnT >100 ng/L at presentation, a 0h/2h/ RELATIVE (percent, %) delta change of 20% is suggested to distinguish patients with acute vs. chronic myocardial injury. There are multiple etiologies that can cause hs-cTnT increases above the 99th percentile (myocardial injury) other than acute myocardial infarction. Clinical context and careful clinical evaluation are critical for diagnosis and risk-stratification. The diagnosis of acute myocardial infarction requires a rising and/or falling pattern in hs-cTnT concentrations with at least one value above the sex-specific 99th percentile PLUS at least one of the following clinical criteria: ischemic symptoms, new or presumed new significant ST-T wave changes or new LBBB, development of pathological Q waves, imaging evidence of new loss of viable myocardium or new regional wall motion abnormality, or identification of intracoronary atherothrombosis or an acute angiographic culprit on coronary angiography. In appropriate low-risk patients with a non-ischemic electrocardiogram without active chest pain with a symptom onset >3-hours without recurrence, a single initial hs-cTnT<6 ng/L identifies patient with a very low risk in emergency department patient population. Charlene Moeller DO CHEMISTRY [facility] [address] [place] [address] * (ABNORMAL) CBC WITH AUTO DIFFERENTIAL (02/07/2024 8:22 AM CDT) WHITE BLOOD COUNT 6.4 4.5 - 11.0 thou/cu mm 02/07/2024 8:28 AM [facility] RED BLOOD COUNT 4.05(L) 4.30 - 5.90 mil/cu mm 02/07/2024 8:28 AM [facility] HEMOGLOBIN 13.5 13.5 - 17.5 g/dL 02/07/2024 8:28 AM [facility] HEMATOCRIT 41.6 37.0 - 53.0 % 02/07/2024 8:28 AM [facility] MCV 103(H) 80 - 100 fL 02/07/2024 8:28 AM T [facility] MCH 33.3 26.0 - 34.0 pg 02/07/2024 8:28 AM [facility] MCHC 32.5 32.0 - 36.0 g/dL 02/07/2024 8:28 AM [facility] RDW 15.9(H) 11.5 - 15.5 % 02/07/2024 8:28 AM [facility] PLATELET COUNT 118(L) 140 - 440 thou/cu mm 02/07/2024 8:28 AM [facility] MPV 10.1 6.5 - 11.0 fL 02/07/2024 8:28 AM [facility] % NEUT 75.1 % 02/07/2024 8:28 AM [facility] % LYMPH 11.8 % 02/07/2024 8:28 AM [facility] % MONO 11.1 % 02/07/2024 8:28 AM [facility] % EOS 1.7 % 02/07/2024 8:28 AM [facility] % BASO 0.3 % 02/07/2024 8:28 AM [facility] ABSOLUTE NEUTROPHILS 4.8 1.7 - 7.0 thou/cu mm 02/07/2024 8:28 AM [facility] ABSOLUTE LYMPHOCYTES 0.8(L) 0.9 - 2.9 thou/cu mm 02/07/2024 8:28 AM [facility] ABSOLUTE MONOCYTES 0.7 <0.9 thou/cu mm 02/07/2024 8:28 AM [facility] ABSOLUTE EOSINOPHILS 0.1 <0.5 thou/cu mm 02/07/2024 8:28 AM [facility] ABSOLUTE BASOPHILS 0.0 <0.3 thou/cu mm 02/07/2024 8:28 AM [facility] Blood VENOUS BLOOD SPECIMEN / Unknown Butterfly / Unknown 02/07/2024 8:22 AM T 02/07/2024 8:25 AM T Charlene Moeller DO HEMATOLOGY [facility] [address] [place] [address] * (ABNORMAL) BASIC METABOLIC PANEL (02/07/2024 8:22 AM CDT) Only the most recent of2 resultswithin the time period is included. SODIUM 138 136 - 145 mmol/L 02/07/2024 8:52 AM [facility] POTASSIUM 3.2(L) 3.5 - 5.1 mmol/L 02/07/2024 8:52 AM [facility] CHLORIDE 94(L) 98 - 107 mmol/L 02/07/2024 8:52 AM [facility] CO2,TOTAL 33(H) 22 - 29 mmol/L 02/07/2024 8:52 AM [facility] ANION GAP 11 5 - 18 02/07/2024 8:52 AM [facility] GLUCOSE 129(H) 70 - 99 mg/dL 02/07/2024 8:52 AM [facility] CALCIUM 9.5 8.8 - 10.2 mg/dL 02/07/2024 8:52 AM [facility] BUN 47(H) 8 - 23 mg/dL 02/07/2024 8:52 AM [facility] CREATININE 1.93(H) 0.70 - 1.20 mg/dL 02/07/2024 8:52 AM [facility] BUN/CREAT RATIO 24(H) 10 - 20 8:52 AM [facility] eGFR 39(L) >90 mL/min/1.7 3m2 02/07/2024 8:52 AM [facility] Comment:As of 2021, eG FR is calculated by the CKD-EPI creatinine equation without race adjustment. ??eGFR can be influenced by muscle mass, exercise, and diet. ??The reported eGFR is an estimation only and is only applicable if the renal function is stable. Blood VENOUS BLOOD SPECIMEN / Unknown Butterfly / Unknown 02/07/2024 8:22 AM CDT 02/07/2024 8:25 AM CDT Charlene Moeller DO CHEMISTRY [facility] [address] [place] [address] * EKG 12 LEAD (02/07/2024 8:09 AM CDT) [facility] Interpretation Suspect unspecified pacemaker failure Normal sinus rhythm Left axis deviation Non-specific intra-ventricul ar conduction block Possible Lateral infarct , age undetermined Abnormal ECG When compared with ECG of 02-Jul-2023 13:15, Sinus rhythm has replaced Electronic ventricular pacemaker BEYOND NOW Ventricular Rate 98 BPM BEYOND NOW Atrial Rate 98 BPM BEYOND NOW P-R Interval 136 ms BEYOND NOW QRS Duration 168 ms BEYOND NOW QT 424 ms BEYOND NOW QTc 541 ms BEYOND NOW P [place] 5 degrees BEYOND NOW R [place] -85 degrees BEYOND NOW T [place] 23 degrees BEYOND NOW 02/07/2024 8:09 AM CDT 02/07/2024 10:42 AM CDT Charlene Moeller DO EKG ORD Performing Organization Address [facility] Co de Phone Number [facility]OND NOW [place], [place] * COVID-19 MOLECULAR (02/07/2024 8:03 AM CDT) [facility] COVID 19 [place] MOLECULAR Not detected Not detected 02/07/2024 8:30 AM CDT [facility] TESTING LABORATORY [facility] 02/07/2024 8:30 AM CDT [facility] Comment:Specimen submitted t o [facility] for testing. Other SPECIMEN FROM NASOPHARYNGEAL STRUCTURE / Unknown Non-Blood / Unknown 02/07/2024 8:03 AM CDT 02/07/2024 8:06 AM CDT Charlene Moeller DO MICROBIOLOGY Performing Organization Address [facility] Co de Phone Number [facility] [address] [place] [address] * INFLUENZA A/B PCR (02/07/2024 8:03 AM CDT) [facility] INFLUENZA A PCR NOT Detected 02/07/2024 8:30 AM CDT [facility] INFLUENZA B PCR NOT Detected 02/07/2024 8:30 AM CDT [facility] Other SPECIMEN FROM NASOPHARYNGEAL STRUCTURE / Unknown Non-Blood / Unknown 02/07/2024 8:03 AM CDT 02/07/2024 8:06 AM CDT Emily Llanes MD MICROBIOLOGY Performing Organization Address City/State/[facility] Co de Phone Number [facility] [address] [place] [address] * SCAN-OPERATIVE/PROCEDURE REPORT (01/17/2024 12:00 AM CDT) Scanner OTHER * SCAN-EYE EXAM (01/10/2024 12:00 AM CDT) Scanner OTHER * SCAN-EYE EXAM (12/25/2023 12:00 AM CDT) Scanner OTHER * URINE ALBUMIN TO CREATININE RATIO, RANDOM (11/12/2023 12:34 PM CDT) ALB RAND URINE 15.4 mg/L 11/13/2023 12:33 AM CDT [facility] CREATININE,URIN E 0.55 g/L 11/13/2023 12:33 AM CDT [facility] ALBUMIN TO CREATININE RATIO,RAND UR 28.0 <30.0 mg/g creat 11/13/2023 12:33 AM CDT [facility] Urine URINE SPECIMEN / Unknown Non-Blood / Unknown 11/12/2023 12:34 PM CDT 11/12/2023 12:34 PM CDT Narrative [facility] - 11/13/2023 12:33 AM CDT If Albumin to Creatinine Ratio is elevated, consider the following: ? Elevations seen with incipient nephropathy associated ?? with diabetes mellitus or hypertension. Stress, exercise,hematuria, ?? and urinary tract infection may also produce elevated results. If clinically indicated, confirm with ?24 Hour Albumin to Creatinine Ratio. ?? Ben Cadena MD URINE Performing Organization Address [facility] Co de Phone Number [facility] [address] [place] [address], [place] * (ABNORMAL) HEMOGLOBIN A1C MONITORING (POCT) (11/12/2023 12:33 PM CDT) [facility] HEMOGLOBIN A1C MONITORING (POCT) 7.6(H) <=6.4 % 11/12/2023 12:47 PM CDT [facility] Blood BLOOD SPECIMEN / Unknown Venipuncture / Unknown 11/12/2023 12:33 PM CDT 11/12/2023 12:35 PM CDT Narrative [facility] - 11/12/2023 12:47 PM CDT ? (<=6.9%) ? Indicates good control ? (7.0% to 7.9%) ? Indicates fair control ? (>=8.0%) ? Indicates poor control ?? NOTE: ??These thresholds are guidelines and ?individual targets may vary. Falsely low levels may be seen with: Recent Transfusion, Recent Significant Blood Loss, Hemolytic Diseases, or Falsely elevated levels may be seen with: Untreated Anemias, Splenectomy ? Renee ROBLES CHEMISTRY Performing Organization Address [facility] Co de Phone Number [facility] [address] [place] [address], [place] [phone] * (ABNORMAL) LIPID PANEL W REFLEX MEASURED LDL (09/07/2023 9:55 AM SENIOR INTERNAL AUDITOR) CHOLESTEROL,TOTAL 106 100 - 199 mg/dL 09/07/2023 6:21 PM SENIOR INTERNAL AUDITOR [facility] Comment: Cholesterol, Total Reference Ranges Desirable <200 mg/dL Borderline 200-239 mg/dL High >=240 mg/dL TRIGLYCERIDES 305(H) <150 mg/dL 09/07/2023 6:21 PM [facility] HDL CHOLESTEROL 25(L) >40 mg/dL 6:21 PM [facility] NON-HDL CHOLESTEROL 81 <145 mg/dl 09/07/2023 6:21 PM [facility] CHOL/HDL RATIO 4.24 <4.50 09/07/2023 6:21 PM [facility] LDL CHOLESTEROL 20 <=130 mg/dL 09/07/2023 6:21 PM [facility] VLDL CHOLESTEROL 61(H) <=30 mg/dL 09/07/2023 6:21 PM [facility] PROVIDER ORDERED STATUS RANDOM 09/07/2023 6:21 PM [facility] Blood BLOOD SPECIMEN / Unknown Butterfly / Unknown 09/07/2023 9:55 AM SENIOR INTERNAL AUDITOR 09/07/2023 10:01 AM SENIOR INTERNAL AUDITOR Ben Cadena MD CHEMISTRY [facility] [address] [place] [address], * LC HIV-1/O/2, 4TH GENERATION (09/04/2022 9:18 AM SENIOR INTERNAL AUDITOR) HIV Scr 4th Gen Non Reactive Non Reactive 09/06/2022 10:06 PM [facility] Comment: HIV Negative HIV-1/HIV-2 antibodies and HIV-1 p24 antigen were NOT detected. There is no laboratory evidence of HIV infection. Blood BLOOD SPECIMEN / Unknown Butterfly / Unknown 09/04/2022 9:18 AM SENIOR INTERNAL AUDITOR 09/04/2022 9:18 AM SENIOR INTERNAL AUDITOR Narrative [facility] ([facility] - 09/06/2022 10:06 PM SENIOR INTERNAL AUDITOR Performed at: ??[address] - [address] ??[id number] [employer] Elastic Attacher: Chip Gutierrez MD, Phone: ??[phone] Ben Cadena MD LABORATORY LABTNRP [facility] ([facility]) [address] [place] [address], * COLONOSCOPY SCREENING (08/16/2020 12:00 AM SENIOR INTERNAL AUDITOR) Ben Cadena MD GI PROCEDURE O RD * ANTI HCV (06/30/2016 8:46 AM SENIOR INTERNAL AUDITOR) HEPATITIS C ANTIBODY Non-Reacti ve Non-Reacti ve 06/30/2016 5:58 PM SENIOR INTERNAL AUDITOR [facility] Blood BLOOD SPECIMEN / Unknown Venipuncture / Unknown 06/30/2016 8:46 AM SENIOR INTERNAL AUDITOR 06/30/2016 8:46 AM SENIOR INTERNAL AUDITOR Narrative [facility] - 06/30/2016 5:58 PM SENIOR INTERNAL AUDITOR Antibodies to HCV not detected; does not exclude the possibility of exposure to HCV. Ben Cadena MD SEND OUTS [facility] [address] [place] [address], [place] from Last 3 Months or Most Recently Relevant to Health Maintenance Additional Health Concerns Infection Onset Date Last Indicated Resolved Time Rule-Out Respiratory 02/09/2024 02/09/2024 Advance Directives Documents on File Type Date Recorded Patient Safety Manager Expl anation Healthcare Directive 09/07/2023 8:33 AM D - 09/07/2023 * Full Code (Latest Code Status on File) Date Activated Date Inactivated Comments 02/09/2024 3:48 AM Question Answer Comments Code Status Discussion: Unable to Assess Preferences, Provider to review later * Full Code Date Activated Date Inactivated Comments 02/07/2024 10:57 AM 02/09/2024 2:36 AM Question Answer Comments Code Status Discussion: Reviewed Preferences * Full Code Date Activated Date Inactivated Comments 06/28/2023 4:50 PM 07/05/2023 4:49 PM Question Answer Comments Code Status Discussion: Other * Full Code Date Activated Date Inactivated Comments 03/29/2018 2:59 PM 03/30/2018 1:07 PM * Full Code Date Activated Date Inactivated Comments 09/26/2017 8:58 AM 10/02/2017 4:45 PM Care Teams 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
--- OUTSIDE RECORDS SUMMARY | 2024-02-09 04:40 | XMS_ITS | Continuity of Care Document ---
Author Organization [facility] av Address [address] [facility] [place] [address] Phone Care Team Providers Care Hoop Riveter Name Role Phone Will Alo PETTIT Unavailable Unavailabl e Allergies, Adverse Reactions, Alerts Substance Reaction Status Criticality lactose Active No Information Medications Medication Instructions Dosage Effective Dates (start - stop) Status Comments prednisone 5 mg tablet take 1 tablet by oral route every day 5 MG - Active Sandra Chewable Low Dose Aspirin 81 mg tablet chew 1 tablet by oral route every day 81 MG - Active brimonidine 0.15 % eye drops instill 1 drop by ophthalmic route 3 times every day into affected eye(s) 1.00 drop - Active levothyroxine 100 mcg tablet take 1 tablet by oral route every day 1 tablet - Active amitriptyline 25 mg tablet take 1 tablet by ORAL route every day at bedtime 25 MG - Active metformin 1,000 mg tablet take 1 tablet by oral route 2 times every day with morning and evening meals 1000 MG - Active atorvastatin 10 mg tablet take 1 tablet by oral route every day 10 MG - Active leflunomide 20 mg tablet take 1 tablet by oral route every day 20 MG - Active Aleve 220 mg tablet take 1 tablet by oral route every 12 hours as needed 220 MG - Active amlodipine 10 mg tablet take 1 tablet by oral route every day 10 MG - Active glipizide 5 mg tablet take 1 tablet by oral route every day before meals 5 MG - Active lisinopril 20 mg tablet take 1 tablet by oral route every day 20 MG - Active Vitamin B-12 1,000 mcg sublingual tablet - Active Vitamin B-6 100 mg tablet - Active nortriptyline 25 mg capsule take 1 capsule by oral route 3 times every day 25 MG - Active allopurinol 100 mg tablet take 1 tablet by oral route every day 100 MG - Active sulfasalazine 500 mg tablet take 2 tablet by oral route 2 times every day after meals 1000 MG - Active Cymbalta 30 mg capsule,delayed release take 1 capsule by oral route 2 times every day 30 MG - Active Procedures Procedure Date OFFICE CONSULTATION Advance Directives Directive Yes / No Effective Date File Name No Information Encounters Encounter Description Practice Location Reason(s) For Visit Diagnoses Date Provider Providers Copied on Encounter [facility], [address], [place], [id number], tel:[phone] [facility] [place] No Information Dov Prajapati. [address] [facility] [place], [place], [id number] , [place]. tel:[phone] OFFICE CONSULTATION [facility], [address], [place], [id number], [place] tel:[phone] [facility] low back pain (chief complaint) Low back painType 2 diabetes mellitus with diabetic neuropathy, unspChronic pain syndromeLong term (current) use of opiate analgesic 7 Rebekah Holland. [address] [facility] [place], [place], [id number] , [place]. tel:[phone] Referring Provider: [facility] [address] [facility] [address], [place], [address]. tel:[phone] Family History Family Member Type Diagnosis Age At Onset No Information Payers Payer name Insurance type Covered libertarian ID Authoriza tion(s) No Information Social History Type Description Quantity Date Captured Comments Sex Male Smoking Status No Information Chief Complaint And Reason For Visit No Information Reason For Referral Reason For Referral No Information History Of Present Illness Encounter Date Complaint History Of Prese nt Illness low back pain Onset: 2 [...] failed gabapentin. Medical records:Dr. Michael Fry at [facility]. Surinder at [facility] - PCP records [facility] treatment:Past medication: Functional Status Date Functional Assessmen t No Information Instructions Date Instruction Additional Infor mation No Information Assessments Type Assessment Date No Information Patient Care Teams Name Effective Dates (start - stop) Status Members No Information
--- OUTSIDE RECORDS SUMMARY | 2024-02-09 04:40 | XMS_ITS | Clinical Summary ---
Author Organization [place] Address [address] [place] [id number] Care Team Providers Care Printer Apprentice Name Role Phone Ben Cadena Primary Care Provider Angel Mccormick MD Unavailable [phone] Chucho Clement MD Unavailable [phone] Darion So MD Unavailable [phone] Gutierrez Guthrie DO Unavailable [phone]- [phone] Erick Lagunas MD Unavailable [phone] Chucho Santizo MD Unavailable [phone] [facility] Unavailabl e Allergies Active Allergy Reactions Criticality Noted Date Comments Allopurinol Rash Medium 09/13/2019 At high doses, tolerates current dose of 300 mg daily. Amlodipine Swelling 08/09/2017 Edema on 10mg, ok on 5mg. Quinolones Other (See Comments) 07/02/2023 Qtc prolonged Shellfish-Derived Products Hives,Itching 08/06/2023 Intermittently per pt report. Topiramate Hives 01/06/2021 Medications Medication Sig Dispensed Refills Start Date End Date Status cyanocobalamin (VITAMIN B-12) 1000 MCG tablet Take 1,000 mcg by mouth daily Active vitamin B6 (PYRIDOXINE) 100 MG tablet Take 100 mg by mouth daily Active nitroGLYcerin (NITROSTAT) 0.[address] 0.4 mg under the tongue as needed Every 5 min as needed up to 3 doses 10/02/2017 Active metolazone (ZAROXOLYN) 2.5 MG tabletIndications:E lora Take 5 mg by mouth once a week Only on Fridays06/10/2019 Active torsemide (DEMADEX) 20 MG tablet Take 80 mg by mouth 2 times daily 03/12/2019 Active Cholecalciferol (VITAMIN D3) 50 MCG (1999 UT) CAPS Take 2,000 Units by mouth daily 04/16/2019 Active pantoprazole (PROTONIX) 40 MG EC tablet Take 40 mg by mouth daily 05/13/2019 Active atorvastatin (LIPITOR) 40 MG tablet Take 40 mg by mouth every morning 08/18/2019 Active rOPINIRole (REQUIP) 4 MG tabletIndications:R estless Leg Syndrome Take 4 mg by mouth 2 times daily Active metoprolol succinate ER (TOPROL-XL) 100 MG 24 hr tablet Take 100 mg by mouth daily Active calcium acetate (PHOSLO) 667 MG CAPS capsule Take 667 mg by mouth 3 times daily (with meals) Active calcium polycarbophil (FIBERCON) 625 MG tablet Take 1 tablet by mouth 2 times daily as needed Active allopurinol (ZYLOPRIM) 300 MG tablet Take 300 mg by mouth daily Active dulaglutide (TRULICITY) 0.75 MG/0.5ML pen Inject 0.75 mg Subcutaneous every 7 days Ok per MDA to proceed with only 5 day hold Active brimonidine (ALPHAGAN-P) 0.15 % ophthalmic solution Place 1 drop into both eyes 2 times daily Active timolol, PF, (TIMOPTIC OCUDOSE) 0.5 % ophthalmic solution Place 1 drop into both eyes 2 times daily Active polyethylene glycol (MIRALAX) 17 GM/Dose powderIndications:D rug-induced constipation Take 17 g by mouth 2 times daily as needed for constipation 510 g 3 04/14/2023 Active KLOR-CON 20 MEQ CR tablet Take 20 mEq by mouth daily 05/24/2023 Active aspirin 81 MG EC tabletIndications:S ubacute osteomyelitis of left ankle (H),Charcot foot due to diabetes mellitus (H) Take 1 tablet (81 mg) by mouth 2 times daily 60 tablet 06/01/2023 Active acetaminophen (TYLENOL) 325 MG tabletIndications:N europathic pain of lower extremity, left Take 3 tablets (975 mg) by mouth every 8 hours 90 tablet 1 06/13/2023 Active insulin aspart (NOVOLOG FLEXPEN) 100 UNIT/ML penIndications:Type 2 diabetes mellitus with diabetic neuropathy, with long-term current use of insulin (H) Inject 10 Units Subcutaneous 3 times daily (with meals) Plus Sliding Scale 15 mL 06/13/2023 Active insulin degludec (TRESIBA) 200 UNIT/ML penIndications:Type 2 diabetes mellitus with diabetic neuropathy, with long-term current use of insulin (H) Inject 50 Units Subcutaneous every morning 15 mL 06/13/2023 Active DULoxetine (CYMBALTA) 30 MG capsuleIndications: Chronic pain disorder Take 1 capsule (30 mg) by mouth daily 30 capsule 07/10/2023 Active nortriptyline (PAMELOR) 25 MG capsuleIndications: Chronic pain disorder Take 1 capsule (25 mg) by mouth at bedtime for 30 days 30 capsule 07/10/2023 Active OLANZapine (ZYPREXA) 2.5 MG tabletIndications:I nsomnia, unspecified type Take 1 tablet (2.5 mg) by mouth nightly as needed (sleep) 14 tablet 07/10/2023 Active pregabalin (LYRICA) 50 MG capsuleIndications: Neuropathy Take 1 capsule (50 mg) by mouth 2 times daily 60 capsule 07/10/2023 Active levothyroxine (SYNTHROID/LEVOTHRO ID) 125 MCG tabletIndications:H ypothyroidism (acquired) Take 1 tablet (125 mcg) by mouth daily before breakfast for 30 days 30 tablet 07/11/2023 Active Continuous Blood Gluc Sensor (DEXCOM G6 SENSOR) MISC CHANGE EVERY 10 DAYS DIRECTED 07/19/2023 Active CONTOUR TEST test strip 4 times daily 07/29/2023 Active CONTOUR TEST test strip 07/30/2023 Active Active Problems Problem Noted Date Diagnosed Date Amputation stump infection 07/05/2023 Soft tissue infection 06/10/2023 Neuropathic pain of lower extremity, left 2022 Sepsis 06/09/2023 Diabetic foot infection 06/01/2023 Osteomyelitis of ankle 04/20/2023 Charcot foot due to diabetes mellitus 04/13/2023 Hypokalemia 01/07/2023 Post-operative infection 01/05/2023 Chronic kidney disease, stage V 01/05/2023 Insulin dependent type 2 diabetes mellitus 01/05 Presence of combination inte rnal cardiac defibrillator (ICD) and pacemaker 01/05/2023 Chronic heart failure with p reserved ejection fraction (HFpEF) 01/05/2023 Charcot's joint of left foot 11/22/2022 Morbid obesity 12/07/2020 Adenomatous colon polyp 08/17/2020 Overview: Colonoscopy 07/2020 1 cm polyp, repeat in 3 years Controlled substance agreement signed 04/20/2020 Overview: Signed 04/20/2020 at [facility] Radha Archer .................... 04/20/2020 2:55 PM Chronic systolic heart failure 03/18/2020 Acute kidney injury (H24) 09/17/2019 Alcohol use disorder 09/17/2019 Chronic pain disorder 09/17/2019 Contrast dye induced nephropathy 09/17/2019 Coronary artery disease invo lving augustine coronary artery of augustine heart without angina pectoris 09/17/2019 Dyslipidemia 09/17/2019 LBBB (left bundle branch block) 09/17/2019 nursing home (current) use of opiate analgesic 08/24 Nonischemic cardiomyopathy 09/17/2019 CKD (chronic kidney disease) stage 4, GFR 15-29 ml/min 07/03/2019 Bulging of lumbar intervertebral disc 04/17/2019 Anemia in stage 3 chronic kidney disease 019 Secondary renal hyperparathyroidism (H24) 2018 Anemia in stage 4 chronic kidney disease 019 Adjustment disorder with mixed anxiety and depre ssed mood 02/11/2018 Hypoxia 09/25/2017 Tachycardia, unspecified 09/23/2017 Uncontrolled type 2 diabetes mellitus with complication, with long-term current use of insulin 04/18/2017 Low back pain 01/15/2017 Neuropathy 01/15/2017 Erectile dysfunction of organic origin 6 Vitamin B6 deficiency 07/07/2016 Type 2 diabetes mellitus wit h diabetic neuropathy, unspecified 06/09/2016 Essential hypertension 06/09/2016 Glaucoma 06/09/2016 Gout, unspecified 06/09/2016 Hypothyroidism (acquired) 06/09/2016 Obesity, Class II, BMI 35-39.9 06/09/2016 Rheumatoid arthritis, seropositive 06/09/2016 NSTEMI (non-ST elevated myocardial infarction) Encounters Date Type Department Care Team Description 01/30/2024 Telephone [facility] [place] [id number] [place] [phone] Kenan Black MD WOUND CARE 12/27/2023 10:00 AM CDT Office Visit [facility] [address], [address] [place] [phone] Chucho Santizo MD Below-knee amputation of left lower extremity, subsequent encounter (H24) (Primary Dx); Leg edema, right; Pressure injury of left calf, stage 2 (H) 12/27/2023 Telephone [facility] [place] [address] [place] [phone] [place] W[facility] (Pressure injury left calf) 12/27/2023 Travel 12/25/2023 Travel 12/23/2023 Travel 12/21/2023 Documentation Only Formerly [facility] [address] [place] [address], [address] [phone] Contreras, Yana A, [employer],LPO 12/13/2023 Documentation Only Formerly [facility] [address] FLO[address], [address] [phone] Contreras, Yana A, [employer] INTER[employer],LPO 11/29/2023 Documentation Only Formerly [facility] [address] [place] [address] FLOOR, [address] [phone] Contreras, Yana A, [employer] INTER[employer],LPO 11/14/2023 Documentation Only Formerly [facility] [address] [place] [address] FLOOR, [address] [phone] Contreras, Yana A, [employer] INTER[employer],LPO from Last 3 Months Immunizations Name Administration Dates Next Due TDAP (Adacel,Boostrix) 02/12/2020 Zoster recombinant adjuvanted (SHINGRIX) 019,07/26/2018 Family History Medical History Relation Comments Coronary Stenting Father Coronary Artery Disease Paternal Grandmother Anesthesia Reaction No family hx of Deep Vein Thrombosis (DVT) No family hx of Relation Status Comments Father Paternal Grandmother Social History Tobacco Use Types Packs/Day Years Used Date Smoking Tobacco: Former Cigarettes 1.5 20 1 986 - 2006 Smokeless Tobacco: Never Tobacco Cessation:Counseling Given: Not Answered Alcohol Use Standard Drinks/Week Comments Not Currently 0 (1 standard drink = 0.6 oz pur e alcohol) Social Connection and Isolat ion Panel [NHANES] Answer Date Recorded In a typical week, how many times do you talk on the phone with family, friends, or neighbors? More than three times a week 05/29/2023 How often do you get togethe r with friends or relatives? Never 05/29/2023 How often do you attend chur ch or gnosticist services? Never 05/29/2023 Do you belong to any clubs o r organizations such as buddhism groups, unions, fraternal or athletic groups, or school groups? No 05/29/2023 How often do you attend meet ings of the clubs or organizations you belong to? Never 05/29/2023 Are you , , di vorced, , never , or living with a partner? 05/29/2023 AUDIT-C Answer Date Recorded Q1: How often do you have a drink containing alcohol? Monthly or less 05/29/2023 Q2: How many drinks containi ng alcohol do you have on a typical day when you are drinking? Patient does not drink Q3: How often do you have si x or more drinks on one occasion? Never 05/29/2023 PHQ-2 Answer Date Recorded PHQ-2 Score 3 05/29/2023 [facility] - Occupational Stress Questionnaire Answer Date Recorded Do you feel stress - tense, restless, nervous, or anxious, or unable to sleep at night because your mind is troubled all the time - these days? To some extent 05/29/2023 Exercise Vital Sign Answer Date Recorde d On average, how many days pe r week do you engage in moderate to strenuous exercise (like a brisk walk)? 0 days 05/29/2023 On average, how many minutes do you engage in exercise at this level? 0 min 05/29/2023 Adolescent Education Answer Date Record ed Getting School Help Needed Not on file 04/13 Food Insecurity Answer Date Recorded Within the past 12 months, d id you worry that your food would run out before you got money to buy more? Patient refused 2022 Within the past 12 months, d id the food you bought just not last and you didn? t have money to get more? Patient refused 05/29/2023 Housing Stability Answer Date Recorded Do you have housing? (Raquel g is defined as stable permanent housing and does not include staying ouside in a car, in a tent, in an abandoned building, in an overnight senior living, or couch-surfing.) Patient refused 05/29/2023 Are you worried about losing your housing? Martín nt refused 05/29/2023 Financial Resource Strain Answer Date R ecorded Within the past 12 months, h ave you or your family members you live with been unable to get utilities (heat, electricity) when it was really needed? Patient refused 023 Transportation Needs Answer Date Record ed Within the past 12 months, h as lack of transportation kept you from medical appointments, getting your medicines, non-medical meetings or appointments, work, or from getting things that you need? Patient refused 05/29/2023 Interpersonal Safety Answer Date Record ed Do you feel physically and e motionally safe where you currently live? Yes 05/29/2023 Within the past 12 months, h ave you been hit, slapped, kicked or otherwise physically hurt by someone? No 05/29/2023 Within the past 12 months, h ave you been humiliated or emotionally abused in other ways by your partner or ex-partner? No 05/29/2023 Sex and Gender Information Value Date Recorded Sex Assigned at Male 11/29/2020 12:43 PM CDT Gender Identity Male 11/29/2020 12:43 PM CDT Sexual Orientation Choose not to disclose 2021 4:07 PM HAZMAT CDL A DRIVER Last Filed Vital Signs Vital Sign Reading Time Taken Comments Blood Pressure 142/70 12/27/2023 9:54 AM CDT Pulse 78 08/27/2023 12:39 PM HAZMAT CDL A DRIVER Temperature 36.6 ??C (97.9 ??F) 08/16/2023 9:29 AM CS T Respiratory Rate 18 08/27/2023 12:3 9 PM HAZMAT CDL A DRIVER Oxygen Saturation 96% 08/27/2023 12: 39 PM HAZMAT CDL A DRIVER Inhaled Oxygen Concentration - - Weight 127.1 kg (280 lb 3.3 oz) 07/08/2023 6:30 AM HAZMAT CDL A DRIVER Height 167.6 cm (5' 6) 07/06/2023 4:30 PM HAZMAT CDL A DRIVER Body Mass Index 45.23 07/06/2023 4:30 PM HAZMAT CDL A DRIVER Plan of Treatment Upcoming Encounters Date Type Department Care Team (Late st Contact Info) Description 02/19/2024 8:00 AM CDT Appointment [facility] [address] [place] [phone] Kenan Black MD [facility] [address] [facility] [address] [place] [address] 03/27/2024 8:30 AM CDT Office Visit [facility] [place] [address], [address] [place] [phone] Chucho Santizo MD [address] [place] [phone] Health Maintenance Due Date Last Done Comments ANNUAL REVIEW OF HM ORDERS 1961 CT COLONOGRAPHY 1961 DIABETIC FOOT EXAM 1961 FLEX SIG 1961 HF ACTION PLAN 1961 LIPID 1961 MICROALBUMIN 1961 PARATHYROID 1961 PHOSPHORUS 1961 TSH W/FREE T4 REFLEX 1961 YEARLY PREVENTIVE VISIT 1961 sDNA (Cologuard) 1961 URINALYSIS 1962 Pneumococcal Vaccine: Pediatrics (0 to 5 Years) and At-Risk Patients (6 to 64 Years) (1 of 2 - PCV) 10/04/1967 HIV SCREENING 1976 HEPATITIS C SCREENING 10/04/1979 HEPATITIS A IMMUNIZATION (1 of 2 - Risk 2-dose series) 1980 COVID-19 Vaccine (3 - Moderna risk series) 12/03/2020 11/05/2020, 10/08/2020 FIT 07/29/2021 07/29/2020 RSV VACCINE ( & 60+) (1 - 1-dose 60+ series) 2021 PHQ-2 (once per calendar year) 2023 05/29/2023, 05/29/2023, 07/27/2021, Additional history exists A1C 09/10/2023 06/10/2023, 01/05/2023 BMP 10/09/2023 07/10/2023, 06/22, 07/07/2023, Additional history exists HEMOGLOBIN 02/25/2024 08/27/2023, 06/22, 07/08/2023, Additional history exists INFLUENZA VACCINE (#1) 2024 ALT 07/06/2024 07/06/2023, 06/22, 06/12/2023, Additional history exists CBC 08/27/2024 08/27/2023, 06/22, 07/05/2023, Additional history exists EYE EXAM 12/24/2024 12/25/2023, 02/16/2023 ADVANCE CARE PLANNING 05/29/2028 05/29/2023 DTAP/TDAP/TD IMMUNIZATION (2 - Td or Tdap) 02/11/2030 02/12/2020 COLONOSCOPY 08/16/2030 08/16/2020 COLORECTAL CANCER SCREENING 08/16/2030 ZOSTER IMMUNIZATION Completed 09/18/2018, 9 ALK PHOS Completed 07/06/2023, 06/22, 06/12/2023, Additional history exists HPV IMMUNIZATION Aged Out No longer e ligible based on patient's age to complete this topic IPV IMMUNIZATION Aged Out No longer e ligible based on patient's age to complete this topic MENINGITIS IMMUNIZATION Aged Out No l onger eligible based on patient's age to complete this topic RSV MONOCLONAL ANTIBODY Aged Out No l onger eligible based on patient's age to complete this topic Medical Devices Implanted Type Area Deputy Program Manager Device Identifier Shelf Expiration Date Model / Serial / Lot Graft Bone Stimulan Matrix Kit Rapid Cure 10ml 620-010 - [id number] Implanted:Qty : 1 on 07/06/2023 by Gutierrez Guthrie DO at [facility] Bone/Tissue Synthetic Left: Leg [employer] 11/19/2025 620-010 / [id number] / [id number] Explanted Type Area Deputy Program Manager Device Identifier Shelf Expiration Date Model / Serial / Lot Arthrocell Plus Alloghraft 5.0 Cc Implanted:Qty: 1 on 11/22/2022 by Gutierrez Guthrie DO at [facility] Explanted:Qty: 1 on 06/01/2023 by Gutierrez Guthrie DO at [facility] Bone/Tissue Synthetic Left: Ankle ARTHREX 07/26/2024 ABS-2089 / [id number] / Arthrocell Plus Allograft, 5.0cc Implanted:Qty: 1 on 11/22/2022 by Gutierrez Guthrie DO at [facility] Explanted:Qty: 1 on 06/01/2023 by Gutierrez Guthrie DO at [facility] Bone/Tissue Synthetic Left: Ankle ARTHREX 07/06/2024 ABS-2089 / [id number] 2 / Graft Bone Stimulan Matrix Kit Rapid Cure 10ml 620-010 - [id number] Implanted:Qty: 1 on 01/05/2023 by Gutierrez Guthrie DO at [facility] Explanted:Qty: 1 on 06/01/2023 by Gutierrez Guthrie DO at [facility] Bone/Tissue Synthetic Left: Leg [employer] [id number] 07/22/2025 620-010 / [id number] / Bone Cement Simplex Full Dose 6191-1-001 - [id number] Implanted:Qty: 2 on 04/13/2023 by Gutierrez Guthrie DO at [facility] Explanted:Qty: 2 on 06/01/2023 by Gutierrez Guthrie DO at [facility] Cement, Bone Left: Leg [employer] 07/22/2025 6191-1-0 01 / / [id number] Bone Cement Simplex Full Dose 6191-1-001 - [id number] Implanted:Qty: 1 on 04/20/2023 by Gutierrez Guthrie DO at [facility] Explanted:Qty: 1 on 06/01/2023 by Gutierrez Guthrie, at [facility] Cement, Bone Left: Tibia [employer] [id number] 05/22/2025 6191-1-0 01 / / [id number] Bone Cement Simplex Full Dose 6191-1-001 - [id number] Implanted:Qty: 1 on 04/20/2023 by Gutierrez Guthrie DO at [facility] Explanted:Qty: 1 on 06/01/2023 by Gutierrez Guthrie, at [facility] Cement, Bone Left: Tibia [employer] 04/21/2025 6191-1-0 01 / / [id number] [id number] Bone Locking Shaft 5mm 40mml Ti Partially Th - [id number] Implanted:Qty: 1 on 11/22/2022 by Gutierrez Guthrie DO at [facility] Explanted:Qty: 1 on 04/13/2023 at [facility] Metallic Hardware/Anc hor Left: Ankle [employer] [id number] 07/22/2026 1891-504 0S / / [id number] Imp Scr Strk Lock 5.0x35mm Ft 5035s - [id number] Implanted:Qty: 1 on 11/22/2022 by Gutierrez Gtuhrie DO at [facility] Explanted:Qty: 1 on 04/13/2023 at [facility] Metallic Hardware/Anc hor Left: Ankle [employer] [id number] 07/22/2027 1896-503 5S / / [id number] Imp Scr Strk Lock 5.0x32.5mm Ft 5032s - [id number] Implanted:Qty: 1 on 11/22/2022 by Gutierrez Guthrie DO at [facility] Explanted:Qty: 1 on 04/13/2023 at [facility] Metallic Hardware/Anc hor Left: Ankle [employer] [id number] 07/22/2027 1896-503 2S / / [id number] Imp Scr Strk Lock 5.0x42.5mm Ft 1896-5042s - [id number] Implanted:Qty: 1 on 11/22/2022 by Gutierrez Guthrie DO at [facility] Explanted:Qty: 1 on 04/13/2023 at [facility] Metallic Hardware/Anc hor Left: Ankle [employer] [id number] 06/21/2027 1896-504 2S / / [id number] 6.5 Cannulated Screw, 6.5 X 100 Implanted:Qty: 1 on 11/22/2022 by Gutierrez Guthrie DO at [facility] Explanted:Qty: 1 on 04/13/2023 at [facility] Metallic Hardware/Anc hor Left: Ankle WILLIAM 186067 / / NA Screw Compression T2 - [id number] Implanted:Qty: 1 on 11/22/2022 by Gutierrez Guthrie DO at [facility] Explanted:Qty: 1 on 04/13/2023 at [facility] Metallic Hardware/Anc hor Left: Ankle [employer] [id number] 07/22/2027 1818-000 1S / / [id number] Imp Nail Strk T2 Ankle Arthrodesis [id number] Lt 1826-1120s - [id number] Implanted:Qty: 1 on 11/22/2022 by Gutierrez Guthrie DO at [facility] Explanted:Qty: 1 on 04/13/2023 at [facility] Metallic Hardware/Anc hor Left: Ankle [employer] [id number] 03/22/2027 1818-112 0S / / [id number] Foot Ring External Fixation 210mm Long Sherine Ii Pvc-F - [id number] Implanted:Qty: 1 on 04/20/2023 by Gutierrez Guthrie DO at [facility] Explanted:Qty: 1 on 06/01/2023 by Gutierrez Guthrie DO at [facility] Metallic Hardware/Anc hor Left: Tibia [employer] 4934-4-2 10 / / William Wire 2 Mm [place] [id number] Implanted:Qty: 6 on 04/20/2023 by Gutierrez Guthrie DO at [facility] Explanted:Qty: 6 on 06/01/2023 by Gutierrez Guthrie DO at [facility] Metallic Hardware/Anc hor Left: Tibia WILLIAM 5101-2-4 50 / / Strut Pilar Med 138-201mm Blue - [id number] Implanted:Qty: 4 on 04/20/2023 by Gutierrez Guthrie DO at [facility] Explanted:Qty: 4 on 06/01/2023 by Gutierrez Guthrie DO at [facility] Metallic Hardware/Anc hor Left: Tibia [employer] 4933-0-1 40 / / Wire Holbrook Medium Maria Antonia 1.5 To 2.0mm - [id number] Implanted:Qty: 14 on 04/20/2023 by Gutierrez Guthrie DO at [facility] Explanted:Qty: 14 on 06/01/2023 by Gutierrez Guthrie DO at [facility] Metallic Hardware/Anc hor Left: Tibia [employer] 4933-1-0 02 / / Wire Holbrook Long Maria Antonia 1.5 To 2.0mm - [id number] Implanted:Qty: 3 on 04/20/2023 by Gutierrez Guthrie DO at [facility] Explanted:Qty: 3 on 06/01/2023 by Gutierrez Guthrie DO at [facility] Metallic Hardware/Anc hor Left: Tibia [employer] 4933-1-0 03 / / Nut Connecting Short M8 X 6mm - [id number] Implanted:Qty: 31 on 04/20/2023 by Gutierrez Guthrie DO at [facility] Explanted:Qty: 31 on 06/01/2023 by Gutierrez Guthrie, DO at [facility] Metallic Hardware/Anc hor Left: Tibia [employer] 4933-1-0 10 / / Holbrook External Fixation 6mm Carbon Sherine Ii Latex-Free - [id number] Implanted:Qty: 14 on 04/20/2023 by Gutierrez Guthrie, DO at [facility] Explanted:Qty: 14 on 06/01/2023 by Gutierrez Guthrie, DO at [facility] Metallic Hardware/Anc hor Left: Tibia [employer] 4933-1-7 02 / / Washer [employer] 4mm Yellow Sherine Ii Pvc-Free - [id number] Implanted:Qty: 9 on 04/20/2023 by Gutierrez Guthrie, DO at [facility] Explanted:Qty: 9 on 06/01/2023 by Gutierrez Guthrie, DO at [facility] Metallic Hardware/Anc hor Left: Tibia [employer] 4933-1-7 12 / / Washer Red 7mm - [id number] Implanted:Qty: 9 on 04/20/2023 by Gutierrez Guthrie, at [facility] Explanted:Qty: 9 on 06/01/2023 by Gutierrez Guthrie, DO at [facility] Metallic Hardware/Anc hor Left: Tibia [employer] 4933-1-7 13 / / Shoes Rocker For Foot Ring 180mm - [id number] Implanted:Qty: 1 on 04/20/2023 by Gutierrez Guthrie, at [facility] Explanted:Qty: 1 on 06/01/2023 by Gutierrez Guthrie, DO at [facility] Metallic Hardware/Anc hor Left: Tibia [employer] 4934-8-1 80 / / Nut Connecting M6 - [id number] Implanted:Qty: 4 on 04/20/2023 by Gutierrez Guthrie DO at [facility] Explanted:Qty: 4 on 06/01/2023 by Gutierrez Guthrie, at [facility] Metallic Hardware/Anc hor Left: Tibia [employer] 4933-1-7 01 / / Carbon Fiber Foot Arch 210mm Implanted:Qty: 1 on 04/20/2023 by Gutierrez Guthrie DO at [facility] Explanted:Qty: 1 on 06/01/2023 by Gutierrez Guthrie DO at [facility] Other Left: Tibia WILLIAM 4934-6-2 10 / / Telescopic Motor Strut - Shor, 161-167mm Implanted:Qty: 1 on 04/20/2023 by Gutierrez Guthrie DO at [facility] Explanted:Qty: 1 on 06/01/2023 by Gutierrez Guthrie DO at [facility] Other Left: Tibia WILLIAM 4934-0-2 10 / / [employer] Hinge Coupling 4933-0-800 Implanted:Qty: 1 on 04/20/2023 by Gutierrez Guthrie DO at [facility] Explanted:Qty: 1 on 06/01/2023 by Gutierrez Guthrie DO at [facility] Other Left: Tibia WILLIAM 4933-0-8 00 / / William 4934-1-060 Implanted:Qty: 4 on 04/20/2023 by Gutierrez Guthrie DO at [facility] Explanted:Qty: 4 on 06/01/2023 by Gutierrez Guthrie DO at [facility] Other Left: Tibia WILLIAM 4934-1-0 60 / / Imp Wire Tamara Strk 3.0k034rt 1806-0050s - [id number] Explanted:Qty: 1 on 11/22/2022 by Gutierrez Guthrie DO at [facility] Wire Left: Ankle [employer] [id number] 08/22/2027 1806-005 0S / / [id number] Imp Wire Tamara Strk 3.5s633kp 1806-0050s - [id number] Explanted:Qty: 1 on 11/22/2022 by Gutierrez Guthrie DO at [facility] Wire Left: Ankle [employer] [id number] 07/22/2027 1806-005 0S / / [id number] Wire Fixation 2mm 450mml [place] [employer] Sherine Ii - [id number] Implanted:Qty: 2 on 04/20/2023 by Gutierrez Guthrie, DO at [facility] Explanted:Qty: 2 on 06/01/2023 by Gutierrez Guthrie, DO at [facility] Wire Left: [employer] [employer] [id number] / / Procedures Procedure Name Priority Date/Time Associated Diagnosis Comments CBC WITH PLATELETS Routine 08/27/2023 9: 45 AM [facility] A DRIVER 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, unspecified lower leg, initial encounter (H) BASIC METABOLIC PANEL Routine 07/10/2023 8:16 AM [facility] A DRIVER HEPATIC FUNCTION PANEL Routine 07/06/2023 6:41 AM [facility] A DRIVER HEMOGLOBIN A1C Add-On 06/10/2023 6:47 AM [facility] A DRIVER from Last 3 Months or Most Recently Relevant to Health Maintenance Results * (ABNORMAL) CBC with platelets (08/27/2023 9:45 AM [facility] A DRIVER) WBC Count 8.1 4.0 - 11.0 10e3/uL 08/27/2023 9:53 AM [facility] RBC Count 3.59(L) 4.40 - 5.90 10e6/uL 08/27/2023 9:53 AM [facility] Hemoglobin 11.5(L) 13.3 - 17.7 g/dL 08/27/2023 9:53 AM [facility] Hematocrit 34.7(L) 40.0 - 53.0 % 08/27/2023 9:53 AM [facility] MCV 97 78 - 100 fL 08/27/2023 9:53 AM [facility] MCH 32.0 26.5 - 33.0 pg 08/27/2023 9:53 AM [facility] MCHC 33.1 31.5 - 36.5 g/dL 08/27/2023 9:53 AM [facility] RDW 16.8(H) 10.0 - 15.0 % 08/27/2023 9:53 AM [facility] Platelet Count 149(L) 150 - 450 10e3/uL 08/27/2023 9:53 AM [facility] Blood BLOOD SPECIMEN / Unknown Venipuncture / Unknown 08/27/2023 9:45 AM [facility] A DRIVER 08/27/2023 9:46 AM [facility] Radha Gonzalez PA-C LAB - BLOOD LEONA BAILEY [facility] [address] [place], [place] [address] [phone] * (ABNORMAL) Basic metabolic panel (07/10/2023 8:16 AM [facility]) Sodium 140 135 - 145 mmol/L 07/10/2023 9:19 AM [facility] Comment:Reference intervals for this test were updated on 04/17/2023 to more accurately reflect our healthy population. There may be differences in the flagging of prior results with similar values performed with this method. Interpretation of those prior results can be made in the context of the updated reference intervals. Potassium 3.2(L) 3.4 - 5.3 mmol/L 07/10/2023 9:19 AM [facility] Chloride 98 98 - 107 mmol/L 07/10/2023 9:19 AM [facility] Carbon Dioxide (CO2) 27 22 - 29 mmol/L 07/10/2023 9:19 AM [facility] Anion Gap 15 7 - 15 mmol/L 07/10/2023 9:19 AM [facility] Urea Nitrogen 42.3(H) 8.0 - 23.0 mg/dL 07/10/2023 9:19 AM [facility] Creatinine 2.05(H) 0.67 - 1.17 mg/dL 07/10/2023 9:19 AM [facility] GFR Estimate 36(L) >60 mL/min/1. 73m2 07/10/2023 9:19 AM [facility] Calcium 10.3(H) 8.8 - 10.2 mg/dL 07/10/2023 9:19 AM [facility] Glucose 167(H) 70 - 99 mg/dL 07/10/2023 9:19 AM [facility] Blood BLOOD SPECIMEN / Unknown Venipuncture / Unknown 07/10/2023 8:16 AM [facility] A DRIVER 07/10/2023 9:05 AM [facility] A DRIVER Stanislaw Venegas MD LAB - BLOOD ORDERABL ES [facility] [address] [place] [address], [facility] [place] [phone] * Hepatic panel (07/06/2023 6:41 AM [facility]) Protein Total 8.1 6.4 - 8.3 g/dL 07/06/2023 7:09 AM [facility] Albumin 3.8 3.5 - 5.2 g/dL 07/06/2023 7:09 AM [facility] Bilirubin Total 0.4 <=1.2 mg/dL 07/06/2023 7:09 AM [facility] Alkaline Phosphatase 144 40 - 150 U/L 07/06/2023 7:09 AM [facility] Comment:Reference intervals for this test were updated on 06/05/2023 to more accurately reflect our healthy population. There may be differences in the flagging of prior results with similar values performed with this method. Interpretation of those prior results can be made in the context of the updated reference intervals. AST 36 0 - 45 U/L 07/06/2023 7:09 AM [facility] Comment:Reference intervals for this test were updated on 01/01/2023 to more accurately reflect our healthy population. There may be differences in the flagging of prior results with similar values performed with this method. Interpretation of those prior results can be made in the context of the updated reference intervals. ALT 33 0 - 70 U/L 07/06/2023 7:09 AM [facility] Comment:Reference intervals for this test were updated on 01/01/2023 to more accurately reflect our healthy population. There may be differences in the flagging of prior results with similar values performed with this method. Interpretation of those prior results can be made in the context of the updated reference intervals. Bilirubin Direct <0.20 0.00 - 0.30 mg/dL 07/06/2023 7:09 AM [facility] A DRIVER [facility] Blood BLOOD SPECIMEN / Unknown Venipuncture / Unknown 07/06/2023 6:41 AM [facility] A DRIVER 07/06/2023 6:45 AM [facility] A DRIVER Stanislaw Venegas MD LAB - BLOOD ORDERABL ES Performing Organization Address City/[facility]/ZIP Co de Phone Number [facility] [address] [place] [address], [facility] [place] [phone] * (ABNORMAL) Hemoglobin A1c (06/10/2023 6:47 AM [facility] A DRIVER) Hemoglobin A1C 7.2(H) <5.7 % 06/10/2023 8:28 AM [facility] A DRIVER [facility] Comment: Normal <5.7% Prediabetes 5.7-6.4% ?? Diabetes 6.5% or higher Note: Adopted from ADA consensus guidelines. Blood STRUCTURE OF RIGHT UPPER LIMB / Unknown Venipuncture / Unknown 06/10/2023 6:47 AM [facility] A DRIVER 06/10/2023 6:53 AM [facility] A DRIVER Danay Prince MD LAB - BLOOD ORDERABL ES Performing Organization Address [facility] de Phone Number [facility] [address] [place] [address], [facility] [place] [phone] from Last 3 Months or Most Recently Relevant to Health Maintenance Advance Directives For more information, please contact: [phone] * Full Code (Latest Code Status on File) Date Activated Date Inactivated Comments 07/07/2023 8:13 AM 07/10/2023 7:18 PM All basic and advanced life-sustaining interventions are performed as appropriate Question Answer Comments Code status determined by: Discussion with patie nt/ legal decision maker * Full Code Date Activated Date Inactivated Comments 07/06/2023 8:01 PM 07/07/2023 8:13 AM All basic and advanced life-sustaining interventions are performed as appropriate Question Answer Comments Code status determined by: Unable to det ermine; FULL CODE until documents or legal decision maker available * Full Code Date Activated Date Inactivated Comments 07/05/2023 4:26 PM 07/06/2023 8:01 PM All basic and advanced life-sustaining interventions are performed as appropriate Question Answer Comments Code status determined by: Discussion with patie nt/ legal decision maker * Full Code Date Activated Date Inactivated Comments 06/09/2023 7:41 PM 06/13/2023 8:45 PM All basic and advanced life-sustaining interventions are performed as appropriate Question Answer Comments Code status determined by: Discussion with patie nt/ legal decision maker * Full Code Date Activated Date Inactivated Comments 06/01/2023 7:43 PM 06/05/2023 5:28 PM All basic and advanced life-sustaining interventions are performed as appropriate Question Answer Comments Code status determined by: Discussion with patie nt/ legal decision maker Care Teams Printer Apprentice Relationship Specialty Start Date End Date Ben Cadena PCP - General Family Practice 09/04/19 Angel Mccormick MD [place] [facility] 09/04/19 Chucho Clement MD [facility] [address] [place] [address] Orthopedics 09/04/19 Darion So MD [address] [place] [address] Nephrology 12/09/20 Gutierrez Guthrie DO [facility] Vicente Mckay, [facility] [address] [place] [address] Orthopaedic Surgery Foot and Ankle Surgery 02/05/23 [facility]unas [facility] [address] [facility] [address] [place] [address] Assigned Infectious Disease Provider 02/10/23 Chucho Santizo MD [address] [place] [address] Assigned Neuroscience Provider 10/05/23 [facility] [address] [place] [address] Assigned PCP 11/13/23
--- OUTSIDE RECORDS SUMMARY | 2024-02-09 04:40 | XMS_ITS | Continuity of Care Document ---
Author Organization [facility] Address [address] [place] [address] Phone Care Team Providers Care Drafting Layout Worker Name Role Phone Paz Rg CNP Unavailable Unavailable Allergies, Adverse Reactions, Alerts Substance Reaction Status Criticality topiramate Rash Active No Information amlodipine Edema Active No Information Medications Medication Instructions Dosage Effective Dates (start - stop) Status Comments allopurinol 100 mg tablet take 1 tablet by oral route every day 100 MG - Active aspirin 81 mg tablet,delayed release take 1 tablet by oral route every day 81 MG - Active atorvastatin 40 mg tablet take 1 tablet by oral route every day 40 MG - Active brimonidine 0.15 % eye drops instill 1 drop by ophthalmic route 2 times every day into affected eye(s) 1 drop - Active buprenorphine 2 mg-naloxone 0.[address] 1 film by sublingual route 1-2 times every day allow to dissolve slowly in mouth without chewing or swallowing - Active calcium acetate 667 mg tablet take 1 tablet by oral route 3 times every day with meals 1 tablet - Active cholecalciferol (vitamin D3) 50 mcg (2,000 unit) capsule take 1 by Oral route every day 1 - Active cyanocobalamin (vitamin B-12) 1,000 mcg capsule - Active duloxetine 60 mg capsule,delayed release take 1 Capsule by oral route every day 60 MG - Active levothyroxine 100 mcg capsule take 1 capsule by oral route every day 100 MCG - Active metolazone 2.5 mg tablet take 2 tablet by oral route every week on Sunday - Active metoprolol succinate ER 100 mg tablet,extended release 24 hr take 1 tablet by oral route every day 100 MG - Active nortriptyline 25 mg capsule take 3 capsule by oral route every day at bedtime 75 MG - Active pantoprazole 40 mg tablet,delayed release take 1 tablet by oral route every day 40 MG - Active pregabalin 100 mg capsule take 1 Capsule by ORAL route 2 times every day 100 MG - Active ropinirole 4 mg tablet take 0.5-1 tablet by oral route 2 times every day - Active timolol maleate 0.5 % eye drops instill 1 drop by ophthalmic route 2 times every day into affected eye(s) 1.00 drop - Active torsemide 20 mg tablet take 4 tablet by oral route 2 times every day 80 MG - Active Tresiba FlexTouch U-200 insulin 200 unit/mL (3 mL) subcutaneous pen inject by subcutaneous route as per insulin protocol 0.00 - Active Vitamin B-6 100 mg tablet Take 1 tablet by mouth once daily - Active acetaminophen 500 mg capsule take 2 capsule by oral route every 6 hours as needed 1000 MG - Active Procedures Procedure Date Pt Seen-No Charge, Per Physician 2022 Pt Seen-No Charge, Per Physician 2022 Global Postop Visit Horizon 637 LSO OTS Fit Implant SCS IPG Implant SCS Epi Lead Implant SCS Epi Lead Stimulator Electrodes Each Neurostim Generator, Non-rechargeable,du al Array Implant SCS IPG Implant SCS Epidi Lead Anes- All Integ Neck Incl Subq 23 New Pt Eval 45 Min Advance Directives Directive Yes / No Effective Date File Name Resuscitation Not Answered N/A N/A Life Support Not Answered N/A N/A Intubation Not Answered N/A N/A Antibiotics Not Answered N/A N/A IV Fluid Support Not Answered N/A N/A Tube Feed Not Answered N/A N/A Other Directive N/A N/A WARNING:The information contained in this section is historical and is provided for information only and does not constitute a legal document or any assurance that the information is still accurate. Please verify the information with the stephens of the legal document before using it for clinical purposes. Encounters Encounter Description Practice Location Reason(s) For Visit Diagnoses Date Provider Providers Copied on Encounter [facility], RADHA, [address], [place], [place], [id number], [place] tel:[phone] [facility] No Information 4 Ifrah Mullen. [address], [place], [place], [id number], [place]. tel:[phone] Referring Provider: Ben Cadena MD, [address] [place], [address]. tel:[phone] [facility], [address], [place], [place], [id number], [place] tel:[phone] [facility] Radiculopathy, lumbar region 3 Foster Shaun. [address], [place], [address], [place]. tel:[phone] Referring Provider: Ben Cadena MD, [address] [place], [address]. tel:[phone] [facility], [address], [place], [place], [id number], [place] tel:[phone] [facility] Radiculopathy, lumbar region 3 RN RN. [address], [place], [place], [address], [place]. tel:[phone] Referring Provider: Ben Cadena MD, [address] [place], [address]. tel:[phone] [facility], [address], [place], [place], [id number], [place] tel:[phone] [facility] back pain (chief complaint) Radiculopathy, lumbar region 3 Foster Shaun. [address], [place], [address], [place]. tel:[phone] Referring Provider: Ben Cadena MD, [address] [place], [address]. tel:[phone] [facility], [facility], [address], [place], [place], [id number], [place] tel:[phone] [facility] Physical Therapy Radiculopathy, lumbar regionType 2 diabetes mellitus with diabetic neuropathy, unspPain in right foot 3 Oma Marx. [address], [place], [place], [address], [place]. tel:[phone] Referring Provider: Ben Cadena MD, [address] [facility], [place], [address]. tel:[phone] [facility], [address], [place], [address], [place] tel:[phone] [facility] back pain (chief complaint) Type 2 diabetes mellitus with diabetic neuropathy, unspPain in right foot 3 [facility]. [address], [place], [place], [id number], [place]. tel:[phone] Referring Provider: Erick Posey, [address], [place], [address] . tel:[phone] [facility], [facility], [address], [place], [place], [address], [place] tel:[phone] [facility] No Information 3 Kvng Dunn. [address], [place], [address], [place]. tel:[phone] Referring Provider: Ben Cadena MD, [address] [place], [address]. tel:[phone] [facility], [address], [place], [place], [address], [place] tel:[phone] [facility] [place] No Information 3 Jaquan Rea. [address] [place], [place], [id number], [place]. tel:[phone] Referring Provider: Shaun Calderon, [address], [place], [address]. tel:[phone] [facility], [address], [place], [place], [id number], [place] tel:[phone] [facility] Radiculopathy, lumbar region [address], [place], [address], [place]. tel:[phone] New Pt Eval 45 Min [facility], [address], [place], [place], [address], [place] tel:[phone] [facility] back pain (chief complaint) Radiculopathy, lumbar regionPain in left ankleOther specified diabetes mellitus with diabetic nephropathyBody mass index (BMI) 45.0-49.9, adult 3 Taty Rankin. [address], [place], [place], [address], [place]. tel:[phone] Referring Provider: Ben Cadena MD, [address] [place], [address]. tel:[phone] [facility], [address], [place], [place], [address], [place] tel:[phone] No Information No Information Family History Family Member Type Diagnosis Age At Onset No Information Payers Payer name Insurance type Covered republican ID Benny kumar(s) No Information Social History Type Description Quantity Date Captured Comments Alcohol Use Details Unknown Caffeine Use Details Unknown Tobacco Use Status No Information Smoking Status No Information Non-Smoking Tobacco Use Details : No Details Available : No Details Available Sex Male Chief Complaint And Reason For Visit No Information Reason For Referral Reason For Referral No Information Plan Of Treatment Date Type Action Status Goal Lifestyle education regardin g diet completed History Of Present Illness Encounter Date Complaint History Of Prese nt Illness back pain back pain Location of pain is lower back. back pain Severity level i s 7. The problem is stable. It occurs persistently. Location of pain is lower back and CATHERINE Knee's. Functional Status Date Functional Assessmen t No Information Instructions Date Instruction Additional Infor mation Follow up with spina l cord stimulator reprograms. Keep taking antibiotics till gone. Wear abdominal binder for the next 6 weeks. Use ice, heat, and ibuprofen as much as possible to help with pain. Call us if you have any signs of infection or questions. Related to Radiculopathy, lumbar region same plan of care as above Relat ed to Other specified diabetes mellitus with diabetic nephropathy - Follow up with [facility] orthopedics as scheduled Related to Pain in left ankle - Started authorizat ion for spinal cord stimulator implant today, [facility] will call you once this has been approved- Discussed spinal cord stimulator details with implant today - Follow up with DANISH in one month Related to Radiculopathy, lumbar region Lifestyle education regarding di et Related to Body mass index [BMI] 45.0-49.9, adult Assessments Type Assessment Date No Information Patient Care Teams Name Effective Dates (start - stop) Status Members No Information
--- OUTSIDE RECORDS SUMMARY | 2024-02-09 04:40 | XMS_ITS | Continuity of Care Document ---
Author Organization [facility] Address [address] [place] [address] Phone Care Team Providers Care Deburrer Name Role Phone Cosme Rowley MD Unavailable [...] route every day 88 MCG - Active aspirin 81 mg tablet,delayed release take 1 tablet by oral route every day 81 MG - Active lisinopril 20 mg tablet take 1 tablet by oral route every day 20 MG - Active amlodipine 5 mg tablet take 1 tablet by oral route every day 5 MG - Active allopurinol 100 mg tablet [...] [facility]ants , [address], [place], [address], [place] tel:[phone] [facility] , No Information 1 Amrik Aguiar. [facility] [address], [place], [address], [place]. tel:[phone] [facility] , [address], [place], [address], [place] tel:[phone] [facility] , No Information 1 Amrik Aguiar. [facility] [address], [place], [address], [place]. tel:[phone] [facility] , [address], [place], [address], [place] tel:[phone] [facility] , No Information 1 Amrik Aguiar. [facility] [address], [place], [address], [place]. tel:[phone] Phone E/M By Phys 11-20 Min [facility] , [address], [place], [address], [place] tel:[phone] Telehealth Rheumatoid arthritis (chief complaint)Mo nitor Chronic High Risk Meds (chief complaint) RA w/ rheumatoid factor of multiple sites w/o organ involvementO ther local company intermodal truck driver (current) drug therapy 5- 1 Amrik Aguiar. [facility] [address], [place], [address], [place]. tel:[phone] Referring Provider: Cosme Alcantara, [facility] [address], [place], [address]. tel:[phone] Office/Outpa tient Visit, Est [facility] , [address], [place], [address], [place] tel:[phone] [facility] , Rheumatoid arthritis (chief complaint)Mo nitor Chronic High Risk Meds (chief complaint) RA w/ rheumatoid factor of multiple sites w/o organ involvementL ow back painOther local company intermodal truck driver (current) drug therapy 9 Amrki Aguiar. [facility] [address], [place], [address], [place]. tel:[phone] Referring Provider: Cosme Alcantara, [facility] [address], [place], [address]. tel:[phone] Office/Outpa tient Visit, Est [facility] , [address], [place], [address], [place] tel:[phone] [facility] , RA w/ rheumatoid factor of multiple sites w/o organ involvementO ther local company intermodal truck driver (current) drug therapyLow back pain Sep- 8 Amrik Aguiar. [facility] [address], [place], [address], [place]. tel:[phone] Referring Provider: Cosme Alcantara, [facility] [address], [place], [address]. tel:[phone] Office/Outpa tient Visit, Est [facility] , [address], [place], [address], [place] tel:[phone] [facility] , Rheumatoid arthritis (chief complaint)Mo nitor Chronic High Risk Meds (chief complaint) RA w/ rheumatoid factor of multiple sites w/o organ involvementO ther local company intermodal truck driver (current) drug therapyThrom bocytopenia Amrik Herrera [facility] [address], [place], [address], [place]. tel:[phone] Referring Provider: Cosme Alcantara, [facility] [address], [place], [address]. tel:[phone] Office/Outpa tient Visit, Est [facility] , [address], [place], [address], [place] tel:[phone] [facility] , Rheumatoid arthritis (chief complaint)Mo nitor Chronic High Risk Meds (chief complaint) RA w/ rheumatoid factor of multiple sites w/o organ involvementO ther usp (current) drug therapyThrom bocytopenia Amrik Herrera [facility] [address], [place], [address], [place]. tel:[phone] Referring Provider: Cosme Alcantara, [facility] [address], [place], [address]. tel:[phone] [facility] , [address], [place], [address], [place] tel:[phone] [facility] , No Information 6 Amrik Cosme. [facility] [address], [place], [address], [place]. tel:[phone] Office/Outpa tient Visit, Est [facility] , [address], [place], [address], [place] tel:[phone] [facility] , Rheumatoid arthritis (chief complaint)Mo nitor Chronic High Risk Meds (chief complaint) RA w/ rheumatoid factor of multiple sites w/o organ involvementO ther usp (current) drug therapy 6 Amrik Aguiar. [facility] [address], [place], [address], [place]. tel:[phone] Referring Provider: Cosme Alcantara, [facility] [address], [place], [address]. tel:[phone] Office/Outpa tient Visit, Est [facility] , [address], [place], [address], [place] tel:[phone] [facility] , Rheumatoid arthritis (chief complaint)Mo nitor Chronic High Risk Meds (chief complaint) RA w/ rheumatoid factor of multiple sites w/o organ involvementO ther usp (current) drug therapyPares thesia of skin 6 Amrik Cosme. [facility] [address], [place], [address], [place]. tel:[phone] Referring Provider: Cosme Alcantara, [facility] [address], [place], [address]. tel:[phone] Office/Outpa tient Visit, Est [facility] , [address], [place], [address], [place] tel:[phone] [facility] , Rheumatoid arthritis (chief complaint)Mo nitor Chronic High Risk Meds (chief complaint) RA w/ rheumatoid factor of multiple sites w/o organ involvementO ther local company intermodal truck driver (current) drug therapyPares thesia of skin Oct-2 6 Amrik Aguiar. [facility] [address], [place], [address], [place]. tel:[phone] Referring Provider: Cosme Alcantara, [facility] [address], [place], [address]. tel:[phone] Office/Outpa tient Visit, Est [facility] , [address], [place], [address], [place] tel:[phone] [facility] , Rheumatoid arthritis (chief complaint) RA w/ rheumatoid factor of multiple sites w/o organ involvementO ther local company intermodal truck driver (current) drug therapy Fe0 6 Amrik Aguiar. [facility] [address], [place], [address], [place]. tel:[phone] Referring Provider: Cosme Alcantara, [facility] [address], [place], [address]. tel:[phone] Office/Outpa tient Visit, Est [facility] , [address], [place], [address], [place] tel:[phone] [facility] , Inflammatory Polyarthropa thy (chief complaint) RA w/ rheumatoid factor of multiple sites w/o organ involvementO ther local company intermodal truck driver (current) drug therapy Amrik Aguiar. [facility] [address], [place], [address], [place]. tel:[phone] Referring Provider: Cosme Alcantara, [facility] [address], [place], [address]. tel:[phone] Office/Outpa tient Visit, Est [facility] , [address], [place], [address], [place] tel:[phone] [facility] , Inflammatory Polyarthropa thy (chief complaint) Inflammatory polyarthropa thyTherapeut ic Drug Monitoring Amrik Aguiar. [facility] [address], [place], [address], [place]. tel:[phone] Referring Provider: Cosme Alcantara, [facility] [address], [place], [address]. tel:[phone] Office/Outpa tient Visit, Est [facility] , [address], [place], [address], [place] tel:[phone] [facility] , Inflammatory Polyarthropa thy (chief complaint) Unspecified inflammatory polyarthropa thyTherapeut ic Drug Monitoring Amrik Aguiar. [facility] [address], [place], [address], [place]. tel:[phone] Referring Provider: Cosme Alcantara, [facility] [address], [place], [address]. tel:[phone] Office/Outpa tient Visit, Est [facility] , [address], [place], [address], [place] tel:[phone] [facility] , Inflammatory Polyarthropa thy (chief complaint) Unspecified inflammatory polyarthropa thyTherapeut ic Drug MonitoringLO NG-TERM (CURRENT) USE OF STEROIDS 4 Amrik Aguiar. [facility] [address], [place], [address], [place]. tel:[phone] Referring Provider: Cosme Alcantara, [facility] [address], [place], [address]. tel:[phone] Office/Outpa tient Visit, Est [facility] , [address], [place], [address], [place] tel:[phone] [facility] , Joint Pain (chief complaint) Pain in joint involving multiple sitesTherape utic Drug Monitoring 4 Amrik Aguiar. [facility] [address], [place], [address], [place]. tel:[phone] Referring Provider: Cosme Alcantara, [facility] [address], [place], [address]. tel:[phone] Office/Outpa tient Visit, New [facility] , [address], [place], [address], [place] tel:[phone] [facility] , Joint Pain (chief complaint) Pain in joint involving multiple sitesOther specified disorders of bursae and tendons in shoulder regionAbnorm al Liver Enzymes 4 Amrik Aguiar. [facility] [address], [place], [id number], [place]. tel:[phone] Referring Provider: Cosme Alcantara, [facility] , [facility] [address], [place], [address]. tel:[phone] Family History Family Member Type Diagnosis Age At Onset No Information Payers Payer name Insurance type Covered green party ID Benny kumar(s) Robin BROWN [id number] Social History Type Description Quantity Date Captured [...] Information Instructions Date Instruction Additional Infor mation The patient is to hough ve CBC, Cr, transaminases and albumin performed every 3 months. The patient plans to update this next on 08/12/2020. Related to Other usp (current) drug therapy Decrease leflunomide from 20 mg to 10 mg daily, while continuing prednisone 5 mg daily. 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 A lab order was provided to the patient. Related to Other usp (current) drug therapy Continue leflunomide 20 milligrams daily and prednisone 5 milligrams daily.Considering the strong tendency for rheumatoid arthritis to flare when an effective medication is decreased or withdrawn, I am hesitant to decrease the sulfasalazine unless there is strong concern that it is contributory to the renal insufficiency. I defer to the patient's seam closer regarding the importance of decreasing or discontinuing the sulfasalazine. 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 Unfortunately, I do not have additional helpful recommendations in this regard. Related to Low back pain Continue treatment t hrough the low-back specialist/pain clinic.Option for orthopedic input as well. Related to Low back pain Continue current ant i-rheumatic medications unchanged. 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 A lab order was provided to the patient. Related to Other local company intermodal truck driver (current) drug therapy The patient will hav e CBC, Cr, transaminases and albumin performed every 3 months. Such laboratory studies can be done locally, but I stressed to the patient the importance of following through with this. A lab order was provided to the patient. Related to Other local company intermodal truck driver (current) drug therapy I encourage the tyler [...] performed every 2-3 months. Related to Other usp (current) drug therapy Continue current ant i-rheumatic medications unchanged, pending results of today's updated laboratory studies. 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 Related to Other local company intermodal truck driver (current) drug therapy Follow through with the planned EMG study.Pursue [...] performed every 2-3 months. Related to Other local company intermodal truck driver (current) drug therapy We will pursue a tri al off of leflunomide.The patient plans for updated evaluation with Dr. Álvarez in the near future regarding his diabetes control, which has reportedly been very good. Related to Paresthesia of skin The patient will hav e CBC, Cr, transaminases and albumin performed every 2-3 months. Related to Other local company intermodal truck driver (current) drug therapy Than you sulfasalazi ne and low-dose prednisone.Hold leflunomide x 6-8 weeks, while monitoring the peripheral neuropathy symptoms. 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 Related to Other usp (current) drug therapy After discussion of potential [...] in the near term. Related to Other usp (current) drug therapy Option to mildly fur [...]
--- OUTSIDE RECORDS SUMMARY | 2024-02-09 04:41 | XMS_ITS | Encounter Summary ---
Author Organization [facility] Address [address] [place] [address] Care Team Providers Care Headlight Adjuster Name Role Phone Ben Cadena Primary Care Provider [phone] Angel Mccormick MD Unavailable [phone] Chucho Clement MD Unavailable [phone] Darion So MD Unavailable [phone] Gutierrez Guthrie DO Unavailable + [phone] Erick Lagunas MD Unavailable [phone] AnaliliaAzucena chilel APRN SCIENCE SPECIALIST Unavailable Un available Chucho Santizo MD Unavailable [phone] Azucena Billingsley APRN SCIENCE SPECIALIST Unavailable Un available Clinic - [facility] Unavailabl e Reason for Visit * Rehab Therapy Occupational Therapy (Routine: Next available opening) - Closed Specialty Diagnoses / Procedures Referred By Lance coelho Referred To Contact Occupational Therapy Diagnoses Below-knee amputation of left lower extremity (H) [address] [address] Referral ID Status Reason Start Date Expiration Date Visits Re quested Visits Authorized [id number] Closed 10/10/2023 10/21/2023 365 365 Encounter Details Date Type Department Care Team (Latest Contact Info) Description 10/11/2023 3:00 PM CDT Therapy Visit [facility] [address] [place] [address] [address] [place], [place] [id number] Chucho Santizo MD [address] [place], [place] [phone] Jolanta Crane OT [address] [place] [address] Impaired mobility and ADLs (Primary Dx); Below-knee amputation of left lower extremity (H); Amputation stump infection (H) Social History Tobacco Use Types Packs/Day Years Used Date Smoking Tobacco: Former Cigarettes 1.5 20 1 986 - 2005 Smokeless Tobacco: Never Alcohol Use Standard Drinks/Week Comments Not Currently [...] Never 05/29/2023 How often do you attend [facility] or taoism services? Never 05/29/2023 Do you belong to any clubs o r organizations such as sikh groups, unions, fraternal or athletic groups, or [...] Answer Date Recorded PHQ-2 Score 3 05/29/2023 [facility] - Occupational Stress [...] Answer Date Recorded Do you have housing? (Housin g is defined as stable permanent housing and does not include staying ouside in a car, in a tent, in an abandoned building, in an overnight mcfp, or couch-surfing.) Patient refused 05/29/2023 Are you worried about losing your housing? 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 SEATING AND WHEELED MOBILITY ASSESSMENT [facility] Occupational Therapy Date of service: October 11, 2023 Referring provider: Chucho Santizo MD Order Date 09/27/23 Onset Date: 09/27/23 Order Details: w/c eval Funding:[employer] Vendor: Erin Chowdary Height/Weight: 5'6 / 280 Medical diagnosis: Nervous and Auditory Chronic pain disorder Type 2 diabetes mellitus with diabetic neuropathy, unspecified (H) Low back pain Neuropathy Charcot foot due to diabetes mellitus (H) Neuropathic pain of lower extremity, left Respiratory Hypoxia Digestive Vitamin B6 deficiency Adenomatous colon polyp Morbid obesity (H) Endocrine Dyslipidemia Gout, unspecified Hypothyroidism (acquired) Secondary renal hyperparathyroidism (H24) Uncontrolled type 2 diabetes mellitus with complication, with long-term current use of insulin Insulin dependent type 2 diabetes mellitus (H) Hypokalemia Diabetic foot infection (H) Circulatory Coronary artery disease involving venetie coronary artery of venetie heart without angina pectoris Essential hypertension LBBB (left bundle branch block) Nonischemic cardiomyopathy (H) Tachycardia, unspecified Chronic systolic heart failure (H) NSTEMI (non-ST elevated myocardial infarction) (H) Presence of combination internal cardiac defibrillator (ICD) and pacemaker Chronic heart failure with preserved ejection fraction (HFpEF) (H) Musculoskeletal and Integumentary Bulging of lumbar intervertebral disc Charcot's joint of left foot Osteomyelitis of ankle (H) Immune Rheumatoid arthritis, seropositive (H) Sepsis (H) Urinary Acute kidney injury (H24) Anemia in stage 3 chronic kidney disease (H) CKD (chronic kidney disease) stage 4, GFR 15-29 ml/min (H) Contrast dye induced nephropathy Anemia in stage 4 chronic kidney disease (H) Chronic kidney disease, stage V (H) Infectious/Inflammatory Post-operative infection Soft tissue infection Amputation stump infection (H) Behavioral Adjustment disorder with mixed anxiety and depressed mood Other Alcohol use disorder Erectile dysfunction of organic origin Glaucoma senior care (current) use of opiate analgesic Obesity, Class II, BMI 35-39.9 Controlled substance agreement signed 08/27/2023 Ir cvc tunnel removal right 07/10/2023 Ir cvc tunnel placement > 5 yrs of age 1207/06/2023 Irrigation and debridement lower extremity, combined (Left) Procedure: IRRIGATION AND DEBRIDEMENT, LEFT LOWER EXTREMITY, BELOW KNEE AMPUTATION STUMP; Surgeon: Gutierrez Guthrie DO; Location:[facility] OR 06/12/2023 Midline single lumen placement 06/01/2023 Amputate leg below knee (Left) Procedure: BELOW THE KNEE AMPUTATION; Surgeon: Gutierrez Guthrie DO; Location: [facility] OR 04/20/2023 Apply external fixator lower extremity (Left) Procedure: APPLICATION OF WILLIAM ROSS THIN WIRE FRAME; Surgeon: Gutierrez Guthrie DO; Location: [facility] OR Date Unknown Av fistula or graft arterial (Left) LUE for dialysis Date Unknown Cardiac surgery 2017 Coronary stent placement NORRIS x1 Date Unknown H insert icd Pacemaker/ICD 11/22/2022 Intramedullary nailing,retrograde,for tibiotalocalcaneal fusion (Left) Procedure: TIBIOTALOCALCANEAL FUSION WITH FIBULECTOMY; Surgeon: Gutierrez Guthrie DO; Location: [facility] OR 03/12/2023 Ir cvc non tunnel line removal 01/08/2023 Ir cvc tunnel placement > 5 yrs of age 1004/23/2023 Ir cvc tunnel placement > 5 yrs of age 1106/05/2023 Ir cvc tunnel removal right 01/05/2023 Irrigation and debridement lower extremity, combined (Left) Procedure: LEFT ANKLE IRRIGATION AND DEBRIDEMENT WITH ANTIBIOTIC BEADS; Surgeon: Gutierrez Guthrie DO; Location: [facility] OR 04/13/2023 Irrigation and debridement lower extremity, combined (Left) Procedure: CULTURE, BONE BIOPSY, IRRIGATION AND DEBRIDEMENT; Surgeon: Gutierrez Guthrie DO; Location: [facility] OR 04/20/2023 Irrigation and debridement lower extremity, combined (Left) Procedure: LEFT ANKLE IRRIGATION AND DEBRIDEMENT; Surgeon: Gutierrez Guthrie DO; Location: [facility] OR 04/13/2023 Removal, hardware, ankle, w/irrigation, debridement, and insertion of antiobiotic beads or spacer (Left) Procedure: LEFT ANKLE REMOVAL OF HARDWARE, PLACEMENT OF ANTIBIOTIC CEMENT VITALY; Surgeon: Gutierrez Guthrie DO; Location: [facility] OR 06/01/2023 Remove external fixator lower extremity (Left) Procedure: LEFT LEG REMOVAL OF EXTERNAL FIXATION AND; Surgeon: Gutierrez Guthrie DO; Location: [facility] OR 06/01/2023 Remove hardware lower extremity (Left) Procedure: ANTIBIOTIC VITALY; Surgeon: Gutierrez Guthrie DO; Location: [facility] OR 03/2021 Rotator cuff repair rt/lt (Right) Date Unknown Tonsillectomy Prior Medical History: Roderick Walker is a 62 year old male with DM2 with neuropathy, heart failure with ICD, CKD stage 3, chronic pain, and encephalopathy with a left transtibial amputation on 06/01/23 from diabetic osteomyelitis. His amputation was complicated by subsequent dehiscence and rein fection and acute encephalopathy with agitation. He required I&D on 07/06 and discharged with 1month of cefepime on a wound vac. Cefepime was discontinued 08/17/23. Per note by CPO Chairez on 09/06/23, the wound vac had been discontinued but the wound was not yet ready for tunnel elastic operator lockstitch. 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 Yes Has the patient fallen and had an injury in the past year? No Is the patient a fall risk? 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 Leisure: outdoors Emergency Call system:cell phone Sleep Surface/Equipment: lift chair/recliner Evaluation Pain assessment: Pain denied Phantom pain Cognition: wnl Vision: wnl Hearing: wnl Fatigue: Reported Problems: limited endurance for longer distances and certified pedorthotist mobility Balance: Unsupported Sitting Balance: Uses UE for Balance Sitting Balance in Chair: Uses UE for Balance Standing Balance: Uses UE for Balance Ambulation: Level of [place]: Independent Assistive Device(s): working on getting L LE prosthetic but still needs better way to manage all mobility without leg and for a full day. Transfers: ind Neuromuscular: Coordination: WNL Sensation: Sensory Deficits Reported: Neuropathies B up to right, some in hands as well Head and Neck: Head and Neck Position: WFL Upper Extremities UE ROM: WFL UE Strength: UE Strength WFL Pelvis Anterior/Posterior Pelvis Position: Posterior Tilt Trunk: Anterior/Posterior Trunk Position: Increased Thoracic Kyphosis Lower Extremities: LE ROM: WFL including stump LE Strength: LE Strength WFL Edema: R LE lymphedema wraps Impairments: Fatigue Muscle atrophy Balance Pain Treatment diagnosis: Impaired mobility Impaired activities of daily living Recommendations/Plan of care: Patient would benefit from interventions to enhance safety and independence. Occupational therapy intervention for wheelchair management. Goals: Target date: Patient, family and/or caregiver will verbalize/demonstrate understanding of compensatory methods /equipment to enhance functional independence and safety. Educational assessment/barriers to learning: No barriers noted Treatment provided this date: Wheelchair management, 90 minutes Determined need for and educated on k5 folding wheelchair. Safe trials in clinic. Educated on features and process to obtain. Ricarda to do home trials and aid in loaner Response to treatment/recommendations: understanding Goal attainment: All goals met Risks and benefits of evaluation/treatment have been explained. Patient, family and/or caregiver are in agreement with Plan of Care. Timed Code Treatment Minutes: 90 Total Treatment Time (sum of timed and untimed services): 90 Electronically signed by: Jolanta CUTLER/Mango, ATP Occupational Therapist, Assistive Catheter Finisher And Inspector [phone] fax: [phone] [email or web address] [place] [address] October 11, 2023 * Jolanta Crane OT - 10/11/2023 3:00 PM CDT REQUISITION AND JUSTIFICATION FOR DURABLE MEDICAL EQUIPMENT Patient Name: Roderick Walker MR #: [id number] : 1960 Age/Gender: 63 year old male Visit Date: Roderick Walker seen for seating and wheeled mobility evaluation by Jolanta Crane OTR/Mango, ATP and ATP from [facility] on 10/11/2023. CLINICAL CRITERIA FOR MOBILITY ASSISTIVE EQUIPMENT Coverage Criteria Per Local Coverage Determination A) Roderick has mobility limitations due to chronic pain, type 2 diabetes, neuropathy, Charcot foot, hypoxia, obesity, heart failure, RA, chronic kidney disease with left below-knee amputation that significantly impairs his ability to participate in all of his mobility-related activities of daily living (MRADL). Specifically affected are toileting (being able to get there in time to prevent accidents), dressing, and bathing (getting into the bathroom of designated place). Current equipment used iswalker, knee walker, 4 wheeled walker, cane, scooter and standard manual wheelchair. This patient needs the new equipment requested to be able to independently participate in MRADLS in his home and independently participate in IADLs and community allowing for independence when putting into vehicle and propelling longer distances. Please see additional documentation in the seating and wheeled mobility report for details. Roderick had a successful clinical trial here, and also a successful trial at home with the recommended equipment. Roderick is very willing and physically / cognitively able to use the recommended equipment to assist his with mobility- related activities of daily living and general mobility. B) Leonels mobility limitation cannot be sufficiently and safely resolved by the use of an appropriately fitted cane or walker because he is not able to independently ambulate full-time with other equipment trialed and/or prosthetic. Strength of legs is WFL for one maximal repetition. Fatigue also impacts this patient's ability to ambulate, regardless of the gait aid. C) Roderick does not have sufficient upper extremity function to self-propel a k1-4 manual wheelchair and requires an optimally-configured k5 ultralight weight manual wheelchair in his home to perform MRADLs during a typical day due to limitations in strength, endurance, range of motion, and coordination. Strength of arms is WFL. D) The need for this equipment is LIFETIME. RECOMMENDATIONS FOR MOBILITY BASE, SEATING SYSTEM AND COMPONENTS Motion composites Jeovany A7 ultra lightweight manual wheelchair - this ultra light weight manual wheelchair is appropriate and necessary for him to be able to assist and complete all of his MRADLs within his residence. He has mobility limitations impacting his ability to ambulate independently or with any ambulation aid. He has had a thorough clinical evaluation, and this manual wheelchair is the best option for this patient. Any less costly wheelchair option would be unable to accommodate anterior-posterior axle adjustments to maximize propulsion mechanics required for shoulder preservation in full-time, active manual wheelchair propeller. HD package needed as he is 280 pounds 20x20 seat size-needed to fit patient's measurements Ultra casters - for smooth ride not to jar/shake them Residual limb support-needed to safely support stump with chair use preventing contractures from hanging under seat Heel loops-needed for rearward foot support safely keeping legs on footplate's with use 8 degree back canes- allows for proper integration with backrest and prevents digging into their back with sitting in chair. Plastic coated handrims- to allow for ergonomic administrative specialist and increase propulsion techniques 6 inch removable extension handle for wheel locks- allows for independence use of brakes for safetywith chair use. 2 post, flip back, height adjustable, removable, full length armrests - needed for arm support at appropriate height, not available with standard armrests Rear anti-tip tubes - for safety to prevent w/c tipping rearward Pelvic positioning strap - to assist maintaining pelvis position for functional activities [facility] SPP seat cushion - this pressure distribution and positioning seat cushion will optimally distribute seating pressures to prevent pressure ulcers, but also provide a stable base of support for him to use during MRADLs. Jaleel J3 Solid curved and padded back support - firm and contoured back support is needed to support prior's thoracolumbar area in an upright and midline position, with appropriate support pads as needed. This back support is essential to provide sufficient posterior support to maximize his postural a lignment and minimize his tendency to develop scoliosis and other secondary complications. This equipment is reasonable and necessary with reference to accepted standards of medical practiceand treatment of this patient's condition and is not being recommended as a convenience item. Without this recommended equipment, he is highly likely to sustain injuries from falls, develop pressure sores or postural compensation, and/or be bed confined, which those costs far exceed the cost of therequested equipment. Electronically signed by: Jolanta CUTLER/STEPHANIE Cobian Occupational Therapist, Assistive Catheter Finisher And Inspector [phone] fax: [phone] [email or web address], [address] [place] [address] January 22, 2024 I have read and concur with the above recommendations. Physician Printed Name Physician SIgnature Date of SIgnature Physician Phone documented in this encounter Plan of Treatment Upcoming Encounters Date Type Department Care Team (Late st Contact Info) Description 02/19/2024 8:00 AM CDT Appointment [facility] [place] [address] [address] [address] Kenan Black MD Vascular, Vein, and Wound [address] [place] [address] 03/27/2024 8:30 AM CDT Office Visit [facility] [place] [address] [facility], [address] [place] [phone] Chucho Santizo MD [address] [place] [phone] documented as of this encounter Visit Diagnoses Diagnosis Impaired mobility and ADLs- Primary Mechanical problems with limbs Below-knee amputation of left lower extremity (H) Amputation stump infection (H) Infection (chronic) of amputation stump documented in this encounter Additional Health Concerns Assessment Noted Time PHQ-9 Depression Total Score: 12 023 1:40 PM WARD ATTENDANT documented as of this encounter Care Teams Headlight Adjuster Relationship Specialty Start Date End Date Ben Cadena PCP - General Family Practice 09/04/19 Angel Mccormick MD Family Practice 09/04/19 Chucho Clement MD [address] [place], [place] [phone] [place] [address] Orthopedics 09/04/19 Darion So MD [address] [place] [phone] Nephrology 12/09/20 Gutierrez Guthrie DO [address], [facility] [address] [place], [place] [phone] Orthopaedic Surgery Foot and Ankle Surgery 02/05/23 Erick Lagunas MD [address] [facility] [address] [place] [address] Assigned Infectious Disease Provider 02/10/23 Azucena Billingsley APRN SCIENCE SPECIALIST Assigned PCP 10/13/23 11/12/23 Chucho Santizo MD [address] [place] [address] Assigned Neuroscience Provider 10/05/23 Azucena Billingsley APRN SCIENCE SPECIALIST Assigned PCP 09/14/23 10/12/23 [facility] [address] [place] [address] Assigned PCP 11/13/23 documented as of this encounter
--- OUTSIDE RECORDS SUMMARY | 2024-02-09 04:41 | XMS_ITS | Referral Summary ---
Author Organization [place] Address [facility]0 [facility] [place] [address] Care Team Providers Care Supervising Law Enforcement Analyst Name Role Phone Bne Cadena Primary Care Provider [phone] Angel Mccormick MD Unavailable [phone] Chucho Clement MD Unavailable [phone] Darion So MD Unavailable [phone] Gutierrez Guthrie DO Unavailable + [phone] Erick Lagunas MD Unavailable Chucho Santizo MD Unavailable [phone] [facility] Unavailabl e Encounters Date Type Department Care Team Description 01/30/2024 Telephone [facility] [place] [address] [place] [phone] Kenan Black MD WOUND CARE 12/27/2023 Telephone [facility] [place] [id number] [place] [phone] [place] WOUND CARE (Pressure injury left calf) 12/27/2023 Travel 12/27/2023 10:00 AM CDT Office Visit [facility] [address], [address] [place] [address] Chucho Santizo MD Below-knee amputation of left lower extremity, subsequent encounter (H24) (Primary Dx); Leg edema, right; Pressure injury of left calf, stage 2 (H) 12/25/2023 Travel 12/23/2023 Travel 12/21/2023 Documentation Only [facility] [address], [address] [place] [phone] Contreras, Yana A, PERSONAL FINANCIAL PLANNER,LPO 12/13/2023 Documentation Only [facility] [address], [address] [place] [phone] Contreras, Yana A, PERSONAL FINANCIAL PLANNER,LPO 11/29/2023 Documentation Only [facility] [address] [place] [address] [address], [address] [phone] Contreras, Yana A, PERSONAL FINANCIAL PLANNER,LPO 11/14/2023 Documentation Only [facility] [address] [place] [address] FLOOR, [address] [place] [phone] Contreras, Yana A, PERSONAL FINANCIAL PLANNER,LPO from Last 3 Months Allergies Active Allergy [...] agreement signed 04/20/2020 Overview: Signed 04/20/2020 at [facility] Radha Archer .................... 04/20/2020 2:55 PM Chronic systolic heart failure 03/18/2020 Acute kidney injury (H24) 09/17/2019 Alcohol use disorder 09/17/2019 Chronic pain disorder 09/17/2019 Contrast dye induced nephropathy 09/17/2019 Coronary artery disease invo lving [place] coronary artery of [place] heart without angina pectoris 09/17/2019 Dyslipidemia 09/17/2019 LBBB (left bundle branch block) 09/17/2019 senior care (current) use of opiate analgesic 08/24 Nonischemic [...] seropositive 06/09/2016 NSTEMI (non-ST elevated myocardial infarction) Immunizations Name Administration Dates Next Due TDAP (Adacel,Boostrix) 02/12/2020 Zoster recombinant adjuvanted (SHINGRIX) 019,07/26/2018 Social History Tobacco Use Types Packs/Day Years [...] 05/29/2023 How often do you attend chur or roman catholic services? Never 05/29/2023 Do you belong to any clubs o r organizations such as baptism groups, unions, fraternal or athletic groups, or [...] Answer Date Recorded PHQ-2 Score 3 [facility] - Occupational Stress Questionnaire Answer Date [...] Date Recorded Do you have housing? (Raquel singh is defined as stable permanent housing and does not include staying ouside in a car, in a tent, in an abandoned building, in an overnight prison, or couch-surfing.) Patient refused 05/29/2023 Are you [...] Choose not to disclose 2021 4:07 PM IDEA WORKER Last Filed Vital Signs Vital Sign Reading Time Taken Comments Blood Pressure 142/70 12/27/2023 9:54 AM CDT Pulse 78 08/27/2023 12:39 PM IDEA WORKER Temperature 36.6 ??C (97.9 ??F) 08/16/2023 9:29 AM CS T Respiratory Rate 18 08/27/2023 12:3 9 PM IDEA WORKER Oxygen Saturation 96% 08/27/2023 12: 39 PM IDEA WORKER Inhaled Oxygen Concentration - - Weight 127.1 kg (280 lb 3.3 oz) 07/08/2023 6:30 AM IDEA WORKER Height 167.6 cm (5' 6) 07/06/2023 4:30 PM IDEA WORKER Body Mass Index 45.23 07/06/2023 4:30 PM IDEA WORKER Plan of Treatment Upcoming Encounters Date Type Department Care Team (Late st Contact Info) Description 02/19/2024 8:00 AM CDT Appointment [facility] [address] [place] [phone] Kenan Black MD Vascular, Vein, and Wound [address] [place] [address] [address] [place] [address] 03/27/2024 8:30 AM CDT Office Visit [facility] [place] [address] [facility], [address] [place] [phone] Chucho Santizo MD [address] [place] [address] Medical Devices Implanted Type Area Certified Alcohol Counselor Device Identifier Shelf Expiration Date Model / Serial / Lot Graft Bone Stimulan Matrix Kit Rapid Cure 10ml 620-010 - [id number] Implanted:Qty : 1 on 07/06/2023 by Gutierrez Guthrie DO at [facility] Bone/Tissue Synthetic Left: Leg [employer] 11/19/2025 620-010 / [id number] / [id number] Explanted Type Area Certified Alcohol Counselor Device Identifier Shelf Expiration Date Model / Serial / Lot Arthrocell Plus Alloghraft 5.0 Cc Implanted:Qty: 1 on 11/22/2022 by Gutierrez Guthrie DO at [facility] Explanted:Qty: 1 on 06/01/2023 by Gutierrez Guthrie DO at [facility] Bone/Tissue Synthetic Left: Ankle ARTHREX 07/26/2024 ABS-2090 -05 / [id number] / Arthrocell Plus Allograft, 5.0cc Implanted:Qty: 1 on 11/22/2022 by Gutierrez Guthrei DO at [facility] Explanted:Qty: 1 on 06/01/2023 by Gutierrez Guthrie, at [facility] Bone/Tissue Synthetic Left: Ankle ARTHREX 07/06/2024 ABS-2090 -05 / [id number] / Graft Bone Stimulan Matrix Kit Rapid Cure 10ml 620-010 - [id number] Implanted:Qty: 1 on 01/05/2023 by Gutierrez Guthrie DO at [facility] Explanted:Qty: 1 on 06/01/2023 by Gutierrez Guthrie DO at [facility] Bone/Tissue Synthetic Left: Leg [employer] [id number] 07/22/2025 620-010 / [id number] / Bone Cement Simplex Full Dose 6191-1-001 - [id number] Implanted:Qty: 2 on 04/13/2023 by Gutierrez Guthrie DO at [facility] Explanted:Qty: 2 on 06/01/2023 by Gutierrez Guthrie DO at [facility] Cement, Bone Left: Leg [employer] 07/22/2025 6191-1-0 01 / / [id number] Bone Cement Simplex Full Dose 6191-1-001 - [id number] Implanted:Qty: 1 on 04/20/2023 by Gutierrez Guthrie DO at [facility] Explanted:Qty: 1 on 06/01/2023 by Gutierrez Guthrie DO at [facility] Cement, Bone Left: Tibia [employer] [id number] 05/22/2025 6191-1-0 01 / / [id number] Bone Cement Simplex Full Dose 6191-1-001 - [id number] Implanted:Qty: 1 on 04/20/2023 by Gutierrez Guthrie DO at [facility] Explanted:Qty: 1 on 06/01/2023 by Gutierrez Guthrie DO at [facility] Cement, Bone Left: Tibia [employer] 04/21/2025 6191-1-0 01 / / [id number] Scr Bone Locking Shaft 5mm 40mml Ti Partially Th - [id number] Implanted:Qty: 1 on 11/22/2022 by Gutierrez Guthrie DO at [facility] Explanted:Qty: 1 on 04/13/2023 at [facility] Metallic Hardware/Anc hor Left: Ankle [employer] [id number] 07/22/2026 1891-504 0S / / [id number] Imp Scr Strk Lock 5.0x35mm Ft 5s - [id number] Implanted:Qty: 1 on 11/22/2022 by Gutierrez Guthrie DO at [facility] Explanted:Qty: 1 on 04/13/2023 at [facility] Metallic Hardware/Anc hor Left: Ankle [employer] [id number] 07/22/2027 1896-503 5S / / [id number] Imp Scr Strk Lock 5.0x32.5mm Ft 2s - [id number] Implanted:Qty: 1 on 11/22/2022 by Gutierrez Guthrie DO at [facility] Explanted:Qty: 1 on 04/13/2023 at [facility] Metallic Hardware/Anc hor Left: Ankle [employer] [id number] 07/22/2027 1896-503 2S / / [id number] Imp Scr Strk Lock 5.0x42.5mm Ft 2s - [id number] Implanted:Qty: 1 on 11/22/2022 by Gutierrez Guthrie DO at [facility] Explanted:Qty: 1 on 04/13/2023 at [facility] Metallic Hardware/Anc hor Left: Ankle [employer] [id number] 06/21/2027 1896-504 2S / / [id number] 6.5 Cannulated Screw, 6.5 X 100 Implanted:Qty: 1 on 11/22/2022 by Gutierrez Guthrie DO at [facility] Explanted:Qty: 1 on 04/13/2023 at [facility] Metallic Hardware/Anc hor Left: Ankle WILLIAM [id number] / / NA Screw Compression T2 - [id number] Implanted:Qty: 1 on 11/22/2022 by Gutierrez Guthrie DO at [facility] Explanted:Qty: 1 on 04/13/2023 at [facility] Metallic Hardware/Anc hor Left: Ankle [employer] [id number] 07/22/2027 1818-000 1S / / [id number] Imp Nail Strk T2 Ankle Arthrodesis [id number] Lt 1826-1120s - [id number] Implanted:Qty: 1 on 11/22/2022 by Gutierrez Guthrie DO at [facility] Explanted:Qty: 1 on 04/13/2023 at [facility] Metallic Hardware/Anc hor Left: Ankle [employer] [id number] 03/22/2027 1818-112 0S / / [id number] Foot Ring External Fixation 210mm Long Sherine Ii Pvc-F - [id number] Implanted:Qty: 1 on 04/20/2023 by Gutierrez Guthrie DO at [facility] Explanted:Qty: 1 on 06/01/2023 by Gutierrez Guthrie DO at [facility] Metallic Hardware/Anc hor Left: Tibia [employer] 4934-4-2 10 / / William Wire 2 Mm [place] 5101-2-450 Implanted:Qty: 6 on 04/20/2023 by Gutierrez Guthrie DO at [facility] Explanted:Qty: 6 on 06/01/2023 by Gutierrez Guthrie DO at [facility] Metallic Hardware/Anc hor Left: Tibia WILLIAM 5101-2-4 50 / / Strut Pilar Med 138-201mm Blue - [id number] Implanted:Qty: 4 on 04/20/2023 by Gutierrez Guthrie DO at [facility] Explanted:Qty: 4 on 06/01/2023 by Gutierrez Guthrie, DO at [facility] Metallic Hardware/Anc hor Left: Tibia [employer] 4933-0-1 40 / / Wire [place] Medium Maria Antonia 1.5 To 2.0mm - [id number] Implanted:Qty: 14 on 04/20/2023 by Gutierrez Guthrie, DO at [facility] Explanted:Qty: 14 on 06/01/2023 by Gutierrez Guthrie, DO at [facility] Metallic Hardware/Anc hor Left: Tibia [employer] 4933-1-0 02 / / Wire [place] Long Maria Antonia 1.5 To 2.0mm - [id number] Implanted:Qty: 3 on 04/20/2023 by Gutierrez Guthrie, DO at [facility] Explanted:Qty: 3 on 06/01/2023 by Gutierrez Guthrie, DO at [facility] Metallic Hardware/Anc hor Left: Tibia [employer] 4933-1-0 03 / / Nut Connecting Short M8 X 6mm - [id number] Implanted:Qty: 31 on 04/20/2023 by Gutierrez Guthrie DO at [facility] Explanted:Qty: 31 on 06/01/2023 by Gutierrez Guthrie, DO at [facility] Metallic Hardware/Anc hor Left: Tibia [employer] 4933-1-0 10 / / [place] External Fixation 6mm Carbon Sherine Ii Latex-Free - [id number] Implanted:Qty: 14 on 04/20/2023 by Gutierrez Guthrie DO at [facility] Explanted:Qty: 14 on 06/01/2023 by Gutierrez Guthrie DO at [facility] Metallic Hardware/Anc hor Left: Tibia [employer] 4933-1-7 02 / / Washer Orthopedic 4mm Yellow Sherine Ii Pvc-Free - [id number] Implanted:Qty: 9 on 04/20/2023 by Gutierrez Guthrie DO at [facility] Explanted:Qty: 9 on 06/01/2023 by Gutierrez Guthrie DO at [facility] Metallic Hardware/Anc hor Left: Tibia [employer] 4933-1-7 12 / / Washer Red 7mm - [id number] Implanted:Qty: 9 on 04/20/2023 by Gutierrez Guthrie DO at [facility] Explanted:Qty: 9 on 06/01/2023 by Gutierrez Guthrie DO at [facility] Metallic Hardware/Anc hor Left: Tibia [employer] 4933-1-7 13 / / Shoes Rocker For Foot Ring 180mm - [id number] Implanted:Qty: 1 on 04/20/2023 by Gutierrez Guthrie DO at [facility] Explanted:Qty: 1 on 06/01/2023 by Gutierrez Guthrie DO at [facility] Metallic Hardware/Anc hor Left: Tibia [employer] 4934-8-1 80 / / Nut Connecting M6 - [id number] Implanted:Qty: 4 on 04/20/2023 by Gutierrez Guthrie DO at [facility] Explanted:Qty: 4 on 06/01/2023 by Gutierrez Guthrie DO at [facility] Metallic Hardware/Anc hor Left: Tibia [employer] 4933-1-7 01 / / Carbon Fiber Foot Arch 210mm Implanted:Qty: 1 on 04/20/2023 by Gutierrez Guthrie DO at [facility] Explanted:Qty: 1 on 06/01/2023 by Gutierrez Guthrie DO at [facility] Other Left: Tibia WILLIAM 4934-6-2 10 / / Telescopic Motor Strut - Shor, 161-167mm Implanted:Qty: 1 on 04/20/2023 by Gutierrez Guthrie DO at [facility] Explanted:Qty: 1 on 06/01/2023 by Gutierrez Guthrie DO at [facility] Other Left: Tibia WILLIAM 4934-0-2 10 / / William Hinge Coupling 4933-0-800 Implanted:Qty: 1 on 04/20/2023 by Gutierrez Guthrie DO at [facility] Explanted:Qty: 1 on 06/01/2023 by Gutierrez Guthrie DO at [facility] Other Left: Tibia WILLIAM 4933-0-8 00 / / William 4934-1-060 Implanted:Qty: 4 on 04/20/2023 by Gutierrez Guthrie DO at [facility] Explanted:Qty: 4 on 06/01/2023 by Gutierrez Guthrie DO at [facility] Other Left: Tibia WILLIAM 4934-1-0 60 / / Imp Wire Tamara Strk 3.0v531tw 1806-0050s - [id number] Explanted:Qty: 1 on 11/22/2022 by Gutierrez Guthrie DO at [facility] Wire Left: Ankle [employer] [id number] 08/22/2027 1806-005 0S / / [id number] Imp Wire Tamara Strk 3.8r014tg 1806-0050s - [id number] Explanted:Qty: 1 on 11/22/2022 by Gutierrez Guthrie DO at [facility] Wire Left: Ankle [employer] [id number] 07/22/2027 1806-005 0S / / [id number] Wire Fixation 2mm 450mml [place] Tip Sherine Ii - [id number] Implanted:Qty: 2 on 04/20/2023 by Gutierrez Guthrie DO at [facility] Explanted:Qty: 2 on 06/01/2023 by Gutierrez Guthrie DO at [facility] Wire Left: Tibia [employer] 4933-8-0 40 / / Procedures Procedure Name Priority Date/Time Associated Diagnosis Comments CBC WITH PLATELETS Routine 08/27/2023 9: 45 AM IDEA WORKER 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, unspecified lower leg, initial encounter (H) BASIC METABOLIC PANEL Routine 07/10/2023 8:16 AM IDEA WORKER HEPATIC FUNCTION PANEL Routine 07/06/2023 6:41 AM IDEA WORKER HEMOGLOBIN A1C Add-On 06/10/2023 6:47 AM IDEA WORKER from Last 3 Months or Most Recently Relevant to Health Maintenance Results * (ABNORMAL) CBC with platelets (08/27/2023 9:45 AM IDEA WORKER) [facility] WBC Count 8.1 4.0 - 11.0 10e3/uL 08/27/2023 9:53 AM [facility] RBC Count 3.59(L) 4.40 - 5.90 10e6/uL 08/27/2023 9:53 AM [facility] Hemoglobin 11.5(L) 13.3 - 17.7 g/dL 08/27/2023 9:53 AM [facility] Hematocrit 34.7(L) 40.0 - 53.0 % 08/27/2023 9:53 AM [facility] MCV 97 78 - 100 fL 08/27/2023 9:53 AM [facility] MCH 32.0 26.5 - 33.0 pg 08/27/2023 9:53 AM [facility] MCHC 33.1 31.5 - 36.5 g/dL 08/27/2023 9:53 AM [facility] RDW 16.8(H) 10.0 - 15.0 % 08/27/2023 9:53 AM [facility] Platelet Count 149(L) 150 - 450 10e3/uL 08/27/2023 9:53 AM [facility] Blood BLOOD SPECIMEN / Unknown Venipuncture / Unknown 08/27/2023 9:45 AM IDEA WORKER 08/27/2023 9:46 AM IDEA WORKER Radha Gonzalez PA-C LAB - BLOOD ORDWesley [facility] [address] [place] [address], [facility] [phone] * (ABNORMAL) Basic metabolic panel (07/10/2023 8:16 AM IDEA WORKER) Pathologist [facility] Sodium 140 135 - 145 mmol/L 07/10/2023 9:19 AM [facility] Comment:Reference intervals for this test were updated on 04/17/2023 to more accurately reflect our healthy population. There may be differences in the flagging of prior results with similar values performed with this method. Interpretation of those prior results can be made in the context of the updated reference intervals. Potassium 3.2(L) 3.4 - 5.3 mmol/L 07/10/2023 9:19 AM [facility] Chloride 98 98 - 107 mmol/L 07/10/2023 9:19 AM [facility] Carbon Dioxide (CO2) 27 22 - 29 mmol/L 07/10/2023 9:19 AM [facility] Anion Gap 15 7 - 15 mmol/L 07/10/2023 9:19 AM [facility] Urea Nitrogen 42.3(H) 8.0 - 23.0 mg/dL 07/10/2023 9:19 AM [facility] Creatinine 2.05(H) 0.67 - 1.17 mg/dL 07/10/2023 9:19 AM [facility] GFR Estimate 36(L) >60 mL/min/1. 73m2 07/10/2023 9:19 AM [facility] Calcium 10.3(H) 8.8 - 10.2 mg/dL 07/10/2023 9:19 AM [facility] Glucose 167(H) 70 - 99 mg/dL 07/10/2023 9:19 AM [facility] Blood BLOOD SPECIMEN / Unknown Venipuncture / Unknown 07/10/2023 8:16 AM IDEA WORKER 07/10/2023 9:05 AM [facility] Stanislaw Venegas MD LAB - BLOOD ORDERABL [facility] [address] [place] [address], [facility] [phone] * Hepatic panel (07/06/2023 6:41 AM IDEA WORKER) [facility] Protein Total 8.1 6.4 - 8.3 g/dL 07/06/2023 7:09 AM [facility] Albumin 3.8 3.5 - 5.2 g/dL 07/06/2023 7:09 AM [facility] Bilirubin Total 0.4 <=1.2 mg/dL 07/06/2023 7:09 AM [facility] Alkaline Phosphatase 144 40 - 150 U/L 07/06/2023 7:09 AM [facility] Comment:Reference intervals for this test were updated on 06/05/2023 to more accurately reflect our healthy population. There may be differences in the flagging of prior results with similar values performed with this method. Interpretation of those prior results can be made in the context of the updated reference intervals. AST 36 0 - 45 U/L 07/06/2023 7:09 AM [facility] Comment:Reference intervals for this test were updated on 01/01/2023 to more accurately reflect our healthy population. There may be differences in the flagging of prior results with similar values performed with this method. Interpretation of those prior results can be made in the context of the updated reference intervals. ALT 33 0 - 70 U/L 07/06/2023 7:09 AM [facility] Comment:Reference intervals for this test were updated on 01/01/2023 to more accurately reflect our healthy population. There may be differences in the flagging of prior results with similar values performed with this method. Interpretation of those prior results can be made in the context of the updated reference intervals. Bilirubin Direct <0.20 0.00 - 0.30 mg/dL 07/06/2023 7:09 AM [facility] Blood BLOOD SPECIMEN / Unknown Venipuncture / Unknown 07/06/2023 6:41 AM IDEA WORKER 07/06/2023 6:45 AM IDEA WORKER Stanislaw Venegas MD LAB - BLOOD ORDERABL [facility] [address] [place] [address], [facility] [phone] * (ABNORMAL) Hemoglobin A1c (06/10/2023 6:47 AM IDEA WORKER) Hemoglobin A1C 7.2(H) <5.7 % 06/10/2023 8:28 AM IDEA WORKER [facility] Comment: Normal <5.7% Prediabetes 5.7-6.4% ?? Diabetes 6.5% or higher Note: Adopted from ADA consensus guidelines. Blood STRUCTURE OF RIGHT UPPER LIMB / Unknown Venipuncture / Unknown 06/10/2023 6:47 AM IDEA WORKER 06/10/2023 6:53 AM IDEA WORKER Danay Prince MD LAB - BLOOD ORDERABL [facility] [address] [place], [place] [address] [phone] from Last 3 Months or Most Recently Relevant to Health Maintenance Advance Directives For more information, please contact: [phone] * Full Code (Latest Code Status on File) Date Activated Date Inactivated Comments 07/07/2023 8:13 AM 07/10/2023 7:18 PM All basic and advanced life-sustaining interventions are performed as appropriate Question Answer Comments Code status determined by: Discussion with ulises bautista/ legal decision maker * Full Code Date [...] patie nt/ legal decision maker Care Teams Supervising Law Enforcement Analyst Relationship Specialty Start Date End Date Ben Cad[place] PCP - General Family Practice 09/04/19 Angel Mccormick MD PR Family Practice 09/04/19 Chucho Clement MD [facility] [address] [place] [address] Orthopedics 09/04/19 Darion So MD [address] [place] [id number] Nephrology 12/09/20 Gutierrez Guthrie DO [facility] [address] [place], [place] [id number] Orthopaedic Surgery Foot and Ankle Surgery 02/05/23 Erick Lagunas MD [address] [facility] [address] [place] [address] Assigned Infectious Disease Provider 02/10/23 Chucho Santizo MD [address] [place] [address] Assigned Neuroscience Provider 10/05/23 [facility] [address] [place] [address] Assigned PCP 11/13/23
--- OUTSIDE RECORDS SUMMARY | 2024-02-09 04:41 | XMS_ITS | Encounter Summary ---
Author Organization [place] Address Count includes the [facility] [place] [address] Care Team Providers Care Hardware Trainer Name Role Phone Ben Cadena Primary Care Provider [phone] Angel Mccormick MD Unavailable [phone] Chucho Clement MD Unavailable [phone] Darion So MD Unavailable [phone] Gutierrez Guthrie DO Unavailable +- [phone] Erick Lagunas MD Unavailable [phone] Chucho Santizo MD Unavailable [phone] [facility] Unavailabl e Encounter Details Date Type Department Care Team (Late st Contact Info) Description 11/14/2023 Documentation Only [facility] Orthotics [address]ST FLO[address], [address] [place] [phone] Yana Chairez, SENIOR NETWORK ENGINEER,LPO Social History Tobacco Use Types Packs/Day Years Used Date Smoking Tobacco: Former Cigarettes 1.5 20 1 986 - 2006 Smokeless Tobacco: Never Alcohol Use [...] Never 05/29/2023 How often do you attend [facility] or mormonism services? Never 05/29/2023 Do you belong to any clubs o r organizations such as mormonism groups, unions, fraternal or athletic groups, or [...] Answer Date Recorded PHQ-2 Score 3 05/29/2023 [facility] - Occupational Stress Questionnaire Answer Date Recorded [...] in an abandoned building, in an overnight snf, or couch-surfing.) Patient refused 05/29/2023 Are you worried about losing your housing? Martín bautista refused 05/29/2023 Financial Resource Strain Answer Date [...] Choose not to disclose 2021 4:07 PM CONTRACT MANAGER documented as of this encounter Progress Notes * Yana Chairez, SENIOR NETWORK ENGINEER,LPO - 11/14/2023 1:17 PM CDT S: Roderick is a 63 yom seen today in the [facility] Office for an adjustment to his LEFT transtibial check socket prosthesis. After the initial painful day that Roderick called about, he stayed off of his prosthesis over the weekend and Sunday, and then wore it yesterday for about 20 minutes and walked with it at PT. Roderick stated that he had a good day yesterday, but his leg was feeling sore today. C/opain at his anterior distal tibia and proximal calf region. Additionally, he has been having difficulty donning his liner and doffing the prosthesis because his arms are short and he has difficulty reaching down to the end of his residual limb. DX: Z89.512 (LEFT BK - 06/01/2023) O: 5' 6, 280 lbs. K3 ambulator. Pt arrived in clinic using a knee scooter for the left side, wearing a construction secretary on his left residual limb. Skin is intact. No evidence of skin irritation or breakdown. Socket fit with 8-ply of socks. Distal contact was confirmed visually through the check socket. A: Tried extending the socket to alleviate his pain, but that did not resolve it. I added pelite pretib pads inside the socket and heat flared the anterior distal tibia region. Socket fit with 6-ply of socks with the added padding. Pt walked in parallel bars ~10 times and stated that it felt better, but his leg was still sore. He said that it was likely still sore from yesterday and that he mightneed to take a break for a day to let the pain decrease. After walking, the prosthesis was doffed, and the patient???s skin was checked. No persistent red hunter or any other indications of extreme pressure or skin abrasion. Discussed with Roderick that I would look into alternative solutions for donning his liner and pressing the lock button to doff his prosthesis. Could potentially install a pull cable bulldog lock for easier disengaging of the pin. May try donning tube with liner at next appt. P: Pt is to [facility] if he gets any red hunter that don???t go way after 10 minutes or anyblisters, wounds or bleeding, etc. Pt was instructed to wait to wear his prosthesis again until thenext day, and then to slowly increase his wear time by about 1hr/day as tolerated. Pt is to continue wearing a construction secretary when not wearing the prosthesis. We will keep his next scheduled follow-up in ~1 week. Next step: regular check socket follow-up Electronically signed by Yana Chairez CPO, LPO documented in this encounter Plan of Treatment Upcoming Encounters Date Type Department Care Team (Late st Contact Info) Description 02/19/2024 8:00 AM CDT Appointment [facility] [address] [place] [address] [phone] Kenan Black MD Vascular, Vein, and Wound [address] [facility] [address] [place] [address] 03/27/2024 8:30 AM CDT Office Visit [facility] Medicine [facility] Rehabilitation Clinic [address], [address] [place] [phone] Chucho Santizo MD [address] [place] [address] documented as of this encounter Visit Diagnoses Not on filedocumented in this encounter Additional Health Concerns Assessment Noted Time PHQ-9 Depression Total Score: 12 023 1:40 PM CONTRACT MANAGER documented as of this encounter Care Teams Hardware Trainer Relationship Specialty Start Date End Date Ben Cadena PCP - General Family Practice 09/04/19 Angel Mccormick MD Family Practice 09/04/19 Chucho Clement MD [address] [place] [address] Orthopedics 09/04/19 Darion So MD [address] [place] [phone] Nephrology 12/09/20 Gutierrez Guthrie DO [address], [facility] 200 [place] [address] Orthopaedic Surgery Foot and Ankle Surgery 02/05/23 Erick Lagunas MD [address] [facility] 300 [place] [address] Assigned Infectious Disease Provider 02/10/23 Chucho Santizo MD 9[address] [place] [address] Assigned Neuroscience Provider 10/05/23 [facility] [address] [place] [address] Assigned PCP 11/13/23 documented as of this encounter
--- OUTSIDE RECORDS SUMMARY | 2024-02-09 04:41 | XMS_ITS | Encounter Summary ---
Author Organization [place] Address [facility] [place] [address] Care Team Providers Care Electrician Elevator Maintenance Name Role Phone Ben Cadena Primary Care Provider [phone] Angel Mccormick MD Unavailable [phone] Chucho Clement MD Unavailable [phone] Darion So MD Unavailable [phone] Gutierrez Guthrie DO Unavailable [phone]- [phone] Erick Lagunas MD Unavailable [phone] AnaliliaAzucena APRN HEEL BRUSHER Unavailable Un available Analilia, Azucena Veras APRN HEEL BRUSHER Unavailable Un available Chucho Santizo MD Unavailable [phone] AnaliliaAzucena APRN HEEL BRUSHER Unavailable Un available Clinic - [facility] Unavailabl e Encounter Details Date Type Department Care Team (Late st Contact Info) Description 09/13/2023 Medical Correspondence [facility] [address] [place] [address] Scan, Non-Provider Social History Tobacco Use Types Packs/Day Years [...] often do you attend chur ch or episcopal services? Never 05/29/2023 Do you belong to any clubs o r organizations such as restorationist groups, unions, fraternal or athletic groups, or [...] Answer Date Recorded PHQ-2 Score 3 05/29/2023 [facility] - Occupational Stress Questionnaire Answer Date Recorded [...] in an abandoned building, in an overnight skilled nursing, or couch-surfing.) Patient refused 05/29/2023 Are you worried about losing your housing? Naheede nt refused 05/29/2023 Financial Resource Strain Answer [...] Choose not to disclose 2021 4:07 PM SENIOR TEST ENGINEER documented as of this encounter Plan of Treatment Upcoming Encounters Date Type Department Care Team (Late st Contact Info) Description 02/19/2024 8:00 AM CDT Appointment [facility] W[facility] Clinic [place] [address] [address] [place] [address] [phone] Kenan Black MD Vascular, Vein, and Wound [address] [place] [address] [address] [address] 03/27/2024 8:30 AM CDT Office Visit [facility] Physical Medicine and Rehabilitation Clinic [place] [address] [facility], [address] [place] [phone] Chucho Santizo MD [address] [place] [address] documented as of this encounter Visit Diagnoses Not on filedocumented in this encounter Additional Health Concerns Assessment Noted Time PHQ-9 Depression Total Score: 12 023 1:40 PM SENIOR TEST ENGINEER documented as of this encounter Care Teams Electrician Elevator Maintenance Relationship Specialty Start Date End Date Ben Cadena PCP - General Family Practice 09/04/19 Angel Mccormick MD Family Practice 09/04/19 Chucho Clement MD [address] [place] [address] Orthopedics 09/04/19 Darion So MD [address] [place] [phone] Nephrology 12/09/20 Gutierrez Guthrie DO [facility] [address] [address] Orthopaedic Surgery Foot and Ankle Surgery 02/05/23 Erick Lagunas MD [facility] Mom[address] Gregg [facility] 300 [place] [address] Assigned Infectious Disease Provider 02/10/23 Azucena Billingsley APRN HEEL BRUSHER Assigned PCP 05/09/23 09/13/23 Azucena Billingsley APRN HEEL BRUSHER Assigned PCP 10/13/23 11/12/23 Chucho Santizo MD [address] [place] [address] Assigned Neuroscience Provider 10/05/23 Azucena Billingsley APRN HEEL BRUSHER Assigned PCP 09/14/23 10/12/23 [facility] [address] [place] [address] Assigned PCP 11/13/23 documented as of this encounter
--- OUTSIDE RECORDS SUMMARY | 2024-02-09 04:41 | XMS_ITS | Encounter Summary ---
Author Organization [place] Address On license of [facility]0 [facility] [place] [address] Care Team Providers Care Rim Fire Priming Operator Name Role Phone Ben Cadena Primary Care Provider [phone] Angel Mccormick MD Unavailable [phone] Chucho Clement MD Unavailable [phone] Darion So MD Unavailable [phone] Gutierrez Guthrie DO Unavailable + [phone] Erick Lagunas MD Unavailable [phone] AnaliliaAzucena APRN STEAM BOX HAND Unavailable Un available Analilia, Azucena Veras APRN STEAM BOX HAND Unavailable Un available Analilia, Azucena Veras APRN STEAM BOX HAND Unavailable Un available BalserChucho MD Unavailable [phone] Analilia, Azucena Veras APRN STEAM BOX HAND Unavailable Un available Clinic - [facility] Unavailabl e Reason for Visit * Reason Onset Date Comments Appointment 06/06/2023 Encounter Details Date Type Department Care Team (Late st Contact Info) Description 06/06/2023 [place] [address] [facility] [address] [place] [address] Erick Lagunas MD 225 [facility] 300 [place] [address] Appointment Social History Tobacco Use Types Packs/Day Years [...] How often do you attend chur or taoism services? Never 05/29/2023 Do you belong to any clubs o r organizations such as jew groups, unions, fraternal or athletic groups, or [...] Answer Date Recorded PHQ-2 Score 3 05/29/2023 [facility] Occupational Stress Questionnaire Answer [...] in an abandoned building, in an overnight correction, or couch-surfing.) Patient refused 05/29/2023 Are you [...] Choose not to disclose 2021 4:07 PM GATE WATCH documented as of this encounter Progress Notes * Melva Arellano RN - 06/06/2023 10:00 AM CST CM faxed signed prescription for wound VAC to [address] Patient Call Center Rn. CM spoke to Jenny and she is aware the prescription is being faxed. Wound VAC is to be delivered to patient's home. 12:52 PM WATCH documented in this encounter Miscellaneous Notes * Telephone Encounter - Katerina Davison RN - 06/06/2023 10:09 AM GATE WATCH Ok or video, please change. WATCH * Telephone Encounter - Dona Dickinson CMA - 06/06/2023 10:00 AM GATE WATCH [facility] Call Center Phone Message May a detailed message be left on voicemail: yes Reason for Call: Pt is scheduled for follow-up appt with Dr. 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 Call received from pt's [id number] does not think pt would be mobile enough in time for his appt, and is wondering if Dr. Lagunas would be ok with completing this appointment as a virtual visit? Action Taken: Other: Infectious Disease Travel Screening: Not Applicable WATCH documented in this encounter Plan of Treatment Upcoming Encounters Date Type Department Care Team (Late st Contact Info) Description 02/19/2024 8:[address] [facility] W[facility] Clinic [address] [place] [phone] Kenan Black MD Vascular, Vein, and Wound [address] [place] [address] [address], [place] [address] 03/27/2024 8:30 AM CDT Office Visit [facility] Physical Medicine and Rehabilitation Clinic [place] [address] [facility], [address] [place] [phone] Chucho Santizo MD [address] [place] [address] documented as of this encounter Visit Diagnoses Not on filedocumented in this encounter Additional Health Concerns Assessment Noted Time PHQ-9 Depression Total Score: 12 023 1:40 PM GATE WATCH documented as of this encounter Care Teams Rim Fire Priming Operator Relationship Specialty Start Date End Date Surinder Ben Cobian PCP - General Family Practice 09/04/19 Angel Mccormick MD Family Practice 09/04/19 Chucho Clement MD [address] [place], [place] [phone] [place] [address] Orthopedics 09/04/19 Darion So MD [address] [facility] [place] [phone] Nephrology 12/09/20 Gutierrez Guthrie DO [facility] Vicente Mckay, [facility] 200 [place] [address] Orthopaedic Surgery Foot and Ankle Surgery 02/05/23 Erick Lagunas MD [address] [place] [address] [facility] 300 [place] [address] Assigned Infectious Disease Provider 02/10/23 Azucena Billingsley APRN STEAM BOX HAND Assigned Pain Medication Provider 06/16/23 08/15/23 Azucena Billingsley APRN STEAM BOX HAND Assigned PCP 05/09/23 09/13/23 Azucena Billingsley APRN STEAM BOX HAND Assigned PCP 10/13/23 11/12/23 Chucho Santizo MD 909 [place] [address] Assigned Neuroscience Provider 10/05/23 Azucena Billingsley APRN STEAM BOX HAND Assigned PCP 09/14/23 10/12/23 [facility] [address] [place], [place] [address] [address] Assigned PCP 11/13/23 documented as of this encounter
--- OUTSIDE RECORDS SUMMARY | 2024-02-09 04:41 | XMS_ITS | Encounter Summary ---
Author Organization [place] Address [address] [place] [address] Care Team Providers Care Mixing Machine Tender Name Role Phone Ben Cadena Primary Care Provider [phone] Angel Mccormick MD Unavailable [phone] Chucho Clement MD Unavailable [phone] Darion So MD Unavailable [phone] Robert Boggs PhD LP Unavailable [phone] Regis Lyons MD Unavailable [phone] Gutierrez Guthrie DO Unavailable [phone] Erick Lagunas MD Unavailable [phone] Analilia, Azucena Veras APRN PUNCH CARD OPERATOR Unavailable Un available Analilia, Azucena Veras APRN PUNCH CARD OPERATOR Unavailable Un available Analilia, Azucena Veras APRN PUNCH CARD OPERATOR Unavailable Un available Chucho Satnizo MD Unavailable [phone] Analilia, Azucena Veras APRN PUNCH CARD OPERATOR Unavailable Un available Clinic - [facility] Unavailabl e Encounter Details Date Type Department Care Team (Late st Contact Info) Description 10/06/2021 [facility] Management Clinic [address] 4th [place] [address] Chris Norris Social History Tobacco Use Types Packs/Day Years Used Date Smoking Tobacco: Former Cigarettes 1.5 20 1 986 - 2006 Smokeless Tobacco: Never Alcohol Use Standard Drinks/Week Comments Yes 0 (1 standard drink = 0.6 oz pur e alcohol) AUDIT-C Answer Date Recorded Q1: How often do you have a drink containing alc ohol? 2-4 times a month 10/06/2020 Q2: How many drinks containi ng alcohol do you have on a typical day when you are drinking? 1 or 2 10/06/2020 Q3: How often do you have si x or more drinks on one occasion? Not asked 10/06/2020 PHQ-2 Answer Date Recorded PHQ-2 Score 2 07/27/2021 Sex and Gender Information Value Date Recorded Sex Assigned at Male 11/29/2020 12:43 PM CDT Gender Identity Male 11/29/2020 12:43 PM CDT Sexual Orientation Choose not to disclose 2021 4:07 PM QUALITY ASSURANCE ASSOCIATE documented as of this encounter Plan of Treatment Upcoming Encounters Date Type Department Care Team (Late st Contact Info) Description 02/19/2024 8:00 AM CDT Appointment [facility] Wound Clinic [address] [phone] Kenan Black MD Vascular, Vein, and Wound [address] [place] [address] 03/27/2024 8:30 AM CDT Office Visit [facility] Physical Medicine and Rehabilitation Clinic [place] [address]45 [facility], [address] [place] [phone] Chucho Santizo MD [address] [place] [address] documented as of this encounter Visit Diagnoses Not on filedocumented in this encounter Additional Health Concerns Assessment Noted Time PHQ-9 Depression Total Score: 2 06/30/20 21 7:02 AM QUALITY ASSURANCE ASSOCIATE documented as of this encounter Care Teams Mixing Machine Tender Relationship Specialty Start Date End Date Ben Cadena PCP - General Family Practice 09/04/19 Angel Mccormick MD Family Practice 09/04/19 Chucho Clement MD [address] [place] [address] Orthopedics 09/04/19 Darion So MD [address] [place] [phone] Nephrology 12/09/20 Robert Boggs, PhD LP 420 [facility] 741 [place] [address] Assigned Behavioral Health Provider 07/10/21 02/23/23 Regis Lyons MD 420 [facility] 195 [place] [address] Assigned Surgical Provider 08/21/21 02/02/23 Gutierrez Guthrie DO [address], [facility] 200 [place] [address] Orthopaedic Surgery Foot and Ankle Surgery 02/05/23 Erick Lagunas MD [address] [facility] 300 [place] [address] Assigned Infectious Disease Provider 02/10/23 Azucena Billingsley APRN PUNCH CARD OPERATOR Assigned Pain Medication Provider 06/16/23 08/15/23 Azucena Billingsley APRN PUNCH CARD OPERATOR Assigned PCP 05/09/23 09/13/23 Azucena Billingsley APRN PUNCH CARD OPERATOR Assigned PCP 10/13/23 11/12/23 Chucho Santizo MD 9 [place] [address] Assigned Neuroscience Provider 10/05/23 Azucena Billingsley APRN PUNCH CARD OPERATOR Assigned PCP 09/14/23 10/12/23 [facility] [address] [place], [place] [address] Assigned PCP 11/13/23 documented as of this encounter
--- OUTSIDE RECORDS SUMMARY | 2024-02-09 04:41 | XMS_ITS | Encounter Summary ---
Author Organization [place] Address [address] [place] [address] Care Team Providers Care Steam Shovelman Name Role Phone Ben Cadena Primary Care Provider [phone] Angel Mccormick MD Unavailable [phone] Chucho Clement MD Unavailable [phone] Darion So MD Unavailable [phone] Robert Boggs PhD LP Unavailable [phone] Regis Lyons MD Unavailable [phone] Gutierrez Guthrie DO Unavailable [phone] Erick Lagunas MD Unavailable [phone] Analilia, Azucena Veras APRN MEDICAL PHYSICIST Unavailable Un available Analilia, Azucena Veras APRN MEDICAL PHYSICIST Unavailable Un available Analilia, Azucena Veras APRN MEDICAL PHYSICIST Unavailable Un available Chucho Santizo MD Unavailable [phone] Analilia, Azucena Veras APRN MEDICAL PHYSICIST Unavailable Un available Clinic - [facility] Unavailabl e Encounter Details Date Type Department Care Team (Late st Contact Info) Description 10/11/2021 [facility] Weight Management Clinic [address] 4th [place] [address] Chris Norris Social History Tobacco [...] Choose not to disclose 2021 4:07 PM ARCADE ATTENDANT documented as of this encounter Plan of Treatment Upcoming Encounters Date Type Department Care Team (Late st Contact Info) Description 02/19/2024 8:00 AM CDT Appointment [facility] Wound Clinic [address] [phone] Kenan Black MD Vascular, Vein, and Wound [address] [place] [address] 03/27/2024 8:30 AM CDT Office Visit [facility] Physical Medicine and Rehabilitation Clinic [place] [address] [facility], [address] [place] [phone] Chucho Santizo MD [address] [place] [address] documented as of this encounter Visit Diagnoses Not on filedocumented in this encounter Additional Health Concerns Assessment Noted Time PHQ-9 Depression Total Score: 2 06/30/20 21 7:02 AM ARCADE ATTENDANT documented as of this encounter Care Teams Steam Shovelman Relationship Specialty Start Date End Date Ben Cadena PCP - General Family Practice 09/04/19 Angel Mccormick MD Family Practice 09/04/19 Chucho Clement MD [address] [place] [address] Orthopedics 09/04/19 Darion So MD [address] [place] [phone] Nephrology 12/09/20 Robert Boggs, PhD LP 420 [facility] 741 [place] [address] Assigned Behavioral Health Provider 07/10/21 02/23/23 Regis Lyons MD 420 [facility] 195 [place] [address] Assigned Surgical Provider 08/21/21 02/02/23 Gutierrez Guthrie DO [address], [facility] 200 [place] [address] Orthopaedic Surgery Foot and Ankle Surgery 02/05/23 Erick Lagunas MD [address] [facility] 300 [place] [address] Assigned Infectious Disease Provider 02/10/23 Azucena Billingsley APRN MEDICAL PHYSICIST Assigned Pain Medication Provider 06/16/23 08/15/23 Azucena Billinsgley APRN MEDICAL PHYSICIST Assigned PCP 05/09/23 09/13/23 Azucena Billingsley APRN MEDICAL PHYSICIST Assigned PCP 10/13/23 11/12/23 Chucho Santizo MD 9 [place] [address] Assigned Neuroscience Provider 10/05/23 Azucena Billingsley APRN MEDICAL PHYSICIST Assigned PCP 09/14/23 10/12/23 [facility] [address] [address] [place], [place] [phone] Assigned PCP 11/13/23 documented as of this encounter
--- OUTSIDE RECORDS SUMMARY | 2024-02-09 04:41 | XMS_ITS | Encounter Summary ---
Author Organization [place] Address [facility] [place] [address] Care Team Providers Care Spray Drier Name Role Phone Ben Cadena Primary Care Provider [phone] Angel Mccormick MD Unavailable [phone] Chucho Clement MD Unavailable [phone] Darion So MD Unavailable [phone] Robert Boggs PhD LP Unavailable [phone] Milla Ramsay PA-C Unavailable [phone] Regis Lyons MD Unavailable [phone] Gutierrez Guthrie DO Unavailable + [phone] Erick Lagunas MD Unavailable +[phone] AnaliliaAzucena APRN PARK INTERPRETIVE SPECIALIST Unavailable Un available Analilia, Azucena Veras APRN PARK INTERPRETIVE SPECIALIST Unavailable Un available AnaliliaAzucena APRN PARK INTERPRETIVE SPECIALIST Unavailable Un available Chucho Santizo MD Unavailable [phone] AnaliliaAzucena APRN PARK INTERPRETIVE SPECIALIST Unavailable Un available Clinic - [facility] Unavailabl e Encounter Details Date Type Department Care Team (Late st Contact Info) Description 09/15/2021 [facility] Hung [facility] [place] [address] [facility] [address] 4th [place] [address] Regis yLons MD [address] [facility] 195 [place] [address] Social History Tobacco Use Types Packs/Day Years [...] Choose not to disclose 2021 4:07 PM SCALLOP CUTTER MACHINE documented as of this encounter Plan of Treatment Upcoming Encounters Date Type Department Care Team (Late st Contact Info) Description 02/19/2024 8:00 AM CDT Appointment [facility] [address] [phone] Kenan Black MD Vascular, Vein, and Wound [address] [place] [address] 03/27/2024 8:30 AM CDT Office Visit [facility] [place] [address] [facility], [address] [place] [phone] Chucho Santizo MD [address] [place] [address] documented as of this encounter Visit Diagnoses Not on filedocumented in this encounter Additional Health Concerns Assessment Noted Time PHQ-9 Depression Total Score: 2 06/30/20 21 7:02 AM SCALLOP CUTTER MACHINE documented as of this encounter Care Teams Spray Drier Relationship Specialty Start Date End Date Cadena, Ben L PCP - General Family Practice 09/04/19 Angel Mccormick MD Family Practice 09/04/19 Chucho Clement MD [facility] [address] [place] [address] Orthopedics 09/04/19 Darion So MD [address] [place] [phone] Nephrology 12/09/20 Robert Boggs, PhD LP 420 [facility] 741 [place] [address] Assigned Behavioral Health Provider 07/10/21 02/23/23 Milla Ramsay PA-C [facility], SURGERY [address] [facility] [address] [place] [address] Assigned Gastroenterology Provider 08/21/21 09/24/21 Regis Lyons MD 420 [facility] 195 [place] [address] Assigned Surgical Provider 08/21/21 02/02/23 Gutierrez Guthrie DO [address], [facility] 200 [place] [address] Orthopaedic Surgery Foot and Ankle Surgery 02/05/23 Erick Lagunas MD [address] [facility] 300 [place] [address] Assigned Infectious Disease Provider 02/10/23 Azucena Billingsley APRN PARK INTERPRETIVE SPECIALIST Assigned Pain Medication Provider 06/16/23 08/15/23 Azucena Billingsley APRN PARK INTERPRETIVE SPECIALIST Assigned PCP 05/09/23 09/13/23 Azucena Billingsley APRN PARK INTERPRETIVE SPECIALIST Assigned PCP 10/13/23 11/12/23 Chucho Santizo MD 9 [place] [address] Assigned Neuroscience Provider 10/05/23 Azucena Billingsley APRN PARK INTERPRETIVE SPECIALIST Assigned PCP 09/14/23 10/12/23 [facility] [address] [place] [address] Assigned PCP 11/13/23 documented as of this encounter
--- OUTSIDE RECORDS SUMMARY | 2024-02-09 04:41 | XMS_ITS | Encounter Summary ---
Author Organization [place] Address [address] [place] [address] Care Team Providers Care Geodetic Surveyor Name Role Phone Ben Cadena Primary Care Provider [phone] Angel Mccormick MD Unavailable [phone] Chucho Clement MD Unavailable [phone] Darion So MD Unavailable [phone] Gutierrez Guthrie DO Unavailable [phone]- [phone] Erick Lagunas MD Unavailable [phone] Chucho Santizo MD Unavailable [phone] [facility] Unavailabl e Encounter Details Date Type Department Care Team (Latest Contact Info) Description 12/27/2023 Travel Social History Tobacco Use Types Packs/Day Years [...] often do you attend chur ch or latter day services? Never 05/29/2023 Do you belong to any clubs o r organizations such as religious groups, unions, fraternal or athletic groups, or [...] Answer Date Recorded PHQ-2 Score 3 05/29/2023 [facility] [place] of Occupat ional Health - Occupational Stress [...] in an abandoned building, in an overnight halfway, or couch-surfing.) Patient refused 05/29/2023 Are you [...] Choose not to disclose 2021 4:[address] MAINTENANCE WORKER documented as of this encounter Plan of Treatment Upcoming Encounters Date Type Department Care Team (Late st Contact Info) Description 02/19/2024 8:00 AM CDT Appointment [facility] Wound Clinic [address] [phone] Kenan Black MD Vascular, Vein, and Wound [address] [place] [address] 03/27/2024 8:30 AM CDT Office Visit [facility] Physical Medicine and Rehabilitation Clinic [place] [address] [facility], [address] [place] [phone] Chucho Santizo MD [address] [place] [address] documented as of this encounter Visit Diagnoses Not on filedocumented in this encounter Additional Health Concerns Assessment Noted Time PHQ-9 Depression Total Score: 12 023 1:[address] MAINTENANCE WORKER documented as of this encounter Care Teams Geodetic Surveyor Relationship Specialty Start Date End Date Ben Cadena PCP - General Family Practice 09/04/19 Angel Mccormick MD Family Practice 09/04/19 Chucho Clement MD [facility] [place] [address] Orthopedics 09/04/19 Darion So MD [address] [facility] [place] [phone] Nephrology 12/09/20 Gutierrez Guthrie DO [facility] Vicente Mckay, [facility] 200 [place] [address] Orthopaedic Surgery Foot and Ankle Surgery 02/05/23 Erick Lagunas MD [address] [facility] 300 [place] [address] Assigned Infectious Disease Provider 02/10/23 Chucho Santizo MD 909 [place] [address] Assigned Neuroscience Provider 10/05/23 [facility] [address] [place] [address] Assigned PCP 11/13/23 documented as of this encounter
--- OUTSIDE RECORDS SUMMARY | 2024-02-09 04:41 | XMS_ITS | Encounter Summary ---
Author Organization [place] Address [facility] [place] [address] Care Team Providers Care Terminal Worker Name Role Phone Ben Cadena Primary Care Provider [phone] Angel Mccormick MD Unavailable [phone] Chucho Clement MD Unavailable [phone] Darion So MD Unavailable [phone] Gutierrez Guthrie DO Unavailable [phone] Erick Lagunas MD Unavailable [phone] Chucho Santizo MD Unavailable [phone] [facility] Unavailabl e Reason for Visit * Reason Onset Date Comments WOUND CARE 12/27/2023 Pressure injury left calf Encounter Details Date Type Department Care Team (Late st Contact Info) Description 12/27/2023 [facility] W[facility] [place] [id number] [place] [phone] [place], Wound Healing [facility] Medical Office Building [address], [address] [place] [address] WOUND CARE (Pressure injury left calf) Social History Tobacco Use Types Packs/Day Years [...] often do you attend chur ch or gnosticism services? Never 05/29/2023 Do you belong to any clubs o r organizations such as gnosticist groups, unions, fraternal or athletic groups, or [...] Answer Date Recorded PHQ-2 Score 3 05/29/2023 [facility] - Occupational Stress Questionnaire Answer Date Recorded [...] Choose not to disclose 2021 4:07 PM EQUIPMENT STERILIZER documented as of this encounter Miscellaneous Notes * Telephone Encounter - Cherise Maradiaga - 12/27/2023 2:59 PM CDT Scheduled * Telephone Encounter - Stephy Chisholm RN - 12/27/2023 1:30 PM CDT Consult received via Workqueue from [facility]ucho Santizo [facility] wound of the left calf. Does the patient have an open and draining wound? Yes Please schedule with Sandra Aguirre NP, Roebrt Buckley M.D., Devon Khan CNP, or Kenan Black M.D. at [facility] Healing [place] for next available appointment. For all providers, Sudha Martinez PA-C, Sandra Rodriguez PATHOLOGY TECHNOLOGIST or Dr. Black, please schedule a follow up 4 weeks after initial appointment. --If unable to schedule within 2-[address] on cancellation list-- Is the patient able to make their own medical decisions? Yes Can the patient be scheduled on a Sunday ([place]) or (Carla)? Yes Is patient a URIEL lift? PLEASE INQUIRE WHEN MAKING THE APPOINTMENT AND PUT IN APPOINTMENT NOTES Routing to Wound Healing Scheduling. documented in this encounter Plan of Treatment Upcoming Encounters Date Type Department Care Team (Late st Contact Info) Description 02/19/2024 8:00 AM CDT Appointment [facility] [address] [phone] Kenan Black MD Vascular, Vein, and Wound [address] [place] [address] 03/27/2024 8:30 AM CDT Office Visit [facility] Rehabilitation [facility] [place] [address] [place] [address], [address] [place] [phone] Chucho Santizo MD [address] [place] [address] documented as of this encounter Visit Diagnoses Not on filedocumented in this encounter Additional Health Concerns Assessment Noted Time PHQ-9 Depression Total Score: 12 023 1:40 PM EQUIPMENT STERILIZER documented as of this encounter Care Teams Terminal Worker Relationship Specialty Start Date End Date Ben Cadena PCP - General Family Practice 09/04/19 Angel Mccormick MD Family Practice 09/04/19 Chucho Clement MD [facility] [address] [place] [address] Orthopedics 09/04/19 Darion So MD [address] [place] [phone] Nephrology 12/09/20 Gutierrez Guthrie DO [facility] Vicente Mckay, [facility] 200 [place] [address] Orthopaedic Surgery Foot and Ankle Surgery 02/05/23 Erick Lagunas MD [address] [place] [address] [facility] 300 [place] [address] Assigned Infectious Disease Provider 02/10/23 Chucho Santizo MD 909 [place], [place] 8[address] Assigned Neuroscience Provider 10/05/23 [facility] [address] [place] [address] Assigned PCP 11/13/23 documented as of this encounter
--- OUTSIDE RECORDS SUMMARY | 2024-02-09 04:41 | XMS_ITS | Encounter Summary ---
Author Organization [place] Address [address] [place] [address] Care Team Providers Care Lens Maker Name Role Phone Ben Cadena Primary Care Provider [phone] Angel Mccormick MD Unavailable [phone] Chucho Clement MD Unavailable [phone] Darion So MD Unavailable [phone] Gutierrez Guthrie DO Unavailable [phone]- [phone] Erick Lagunas MD Unavailable [phone] Chucho Santizo MD Unavailable [phone] [facility] Unavailabl e Encounter Details Date Type Department Care Team (Latest Contact Info) Description 12/25/2023 Travel Social History Tobacco Use Types Packs/Day [...] often do you attend chur ch or presybeterian services? Never 05/29/2023 Do you belong to any clubs o r organizations such as yazidism groups, unions, fraternal or athletic groups, or [...] Answer Date Recorded PHQ-2 Score 3 05/29/2023 [facility] [place] of Occupat ional Health - Occupational Stress [...] in an abandoned building, in an overnight chcf, or couch-surfing.) Patient refused 05/29/2023 Are you [...] Choose not to disclose 2021 4:07 PM ENVIRONMENTAL PROGRAMS MANAGER documented as of this encounter Plan of Treatment Upcoming Encounters Date Type Department Care Team (Late st Contact Info) Description 02/19/2024 8:00 AM CDT Appointment [facility] Wound Clinic [address] [phone] Kenan Black MD Vascular, Vein, and Wound [address] [place] [address] 03/27/2024 8:30 AM CDT Office Visit [facility] Physical Medicine and Rehabilitation Clinic [place] [address] [facility], [address] [place] [phone] Chucho Santizo MD [address] [place] [address]395 documented as of this encounter Visit Diagnoses Not on filedocumented in this encounter Additional Health Concerns Assessment Noted Time PHQ-9 Depression Total Score: 12 023 1:40 PM ENVIRONMENTAL PROGRAMS MANAGER documented as of this encounter Care Teams Lens Maker Relationship Specialty Start Date End Date Ben Cadena PCP - General Family Practice 09/04/19 Angel Mccormick MD Family Practice 09/04/19 Chucho Clement MD [facility] [place] [address] Orthopedics 09/04/19 Darion So MD [address] [facility] [place] [phone] Nephrology 12/09/20 Gutierrez Guthrie DO [facility] Vicente Mckay, [facility] 200 [place] [address] Orthopaedic Surgery Foot and Ankle Surgery 02/05/23 Erick Lagunas MD [address] [facility] 300 [place] [address] Assigned Infectious Disease Provider 02/10/23 Chucho Santizo MD 909 [place] [address] Assigned Neuroscience Provider 10/05/23 [facility] [address] [place] [address] Assigned PCP 11/13/23 documented as of this encounter
--- OUTSIDE RECORDS SUMMARY | 2024-02-09 04:41 | XMS_ITS | Encounter Summary ---
Author Organization [place] Address [address] [place] [address] Care Team Providers Care Coffee Shop Aide Name Role Phone Ben Cadena Primary Care Provider [phone] Angel Mccormick MD Unavailable [phone] Chucho Clement MD Unavailable [phone] Darion So MD Unavailable [phone] Gutierrez Guthrie DO Unavailable +- [phone] Erick Lagunas MD Unavailable [phone] Chucho Santizo MD Unavailable [phone] [facility] Unavailabl e Encounter Details Date Type Department Care Team (Latest Contact Info) Description 12/23/2023 Travel Social History Tobacco Use Types Packs/Day [...] often do you attend chur ch or baptism services? Never 05/29/2023 Do you belong to any clubs o r organizations such as hinduism groups, unions, fraternal or athletic groups, or [...] Answer Date Recorded PHQ-2 Score 3 05/29/2023 [facility] [place] of Occupat ional Health - Occupational Stress [...] in an abandoned building, in an overnight assisted, or couch-surfing.) Patient refused 05/29/2023 Are you [...] Choose not to disclose 2021 4:07 PM FOOD AND BEVERAGE SERVICE MANAGER documented as of this encounter Plan of Treatment Upcoming Encounters Date Type Department Care Team (Late st Contact Info) Description 02/19/2024 8:[address] [facility] Wound Clinic [address] [phone] Kenan Black MD Vascular, Vein, and Wound [address] [place] [address] 03/27/2024 8:30 AM CDT Office Visit [facility] Physical Medicine and Rehabilitation Clinic [place] [address] [facility], [address] [place] [phone] Chucho Santizo MD [address] [place] [address] documented as of this encounter Visit Diagnoses Not on filedocumented in this encounter Additional Health Concerns Assessment Noted Time PHQ-9 Depression Total Score: 12 023 1:40 PM FOOD AND BEVERAGE SERVICE MANAGER documented as of this encounter Care Teams Coffee Shop Aide Relationship Specialty Start Date End Date Ben Cadena PCP - General Family Practice 09/04/19 Angel Mccormick MD Family Practice 09/04/19 Chucho Clement MD [facility] [place] [address] Orthopedics 09/04/19 Darion So MD [address] [facility] [place] [phone] Nephrology 12/09/20 Gutierrez Guthrie DO [facility] Vicente Mckay, [facility] 200 [place] [address] Orthopaedic Surgery Foot and Ankle Surgery 02/05/23 Erick Lagunas MD [address] [facility] 300 [place] [address] Assigned Infectious Disease Provider 02/10/23 Chucho Santizo MD 909 [place] [address] Assigned Neuroscience Provider 10/05/23 [facility] [address] [place] [address] Assigned PCP 11/13/23 documented as of this encounter
--- OUTSIDE RECORDS SUMMARY | 2024-02-09 04:41 | XMS_ITS | Encounter Summary ---
Author Organization [place] Address [facility] [place] [address] Care Team Providers Care Weaving Machine Operator Name Role Phone Ben Cadena Primary Care Provider [phone] Angel Mccormick MD Unavailable [phone] Chucho Clement MD Unavailable [phone] Darion So MD Unavailable [phone] Gutierrez Guthrie DO Unavailable [phone] Erick Lagunas MD Unavailable [phone] Chucho Santizo MD Unavailable [phone] [facility] Unavailabl e Encounter Details Date Type Department Care Team (Late st Contact Info) Description 12/13/2023 Documentation Only [facility] Orthotics [address]LO[address], [address] [place] [phone] Yana Chairez, FINANCIAL INSTITUTION VICE PRESIDENT,LPO Social History Tobacco Use Types Packs/Day Years [...] Never 05/29/2023 How often do you attend [facility] or orthodox services? Never 05/29/2023 Do you belong to any clubs o r organizations such as episcopalian groups, unions, fraternal or athletic groups, or [...] Answer Date Recorded PHQ-2 Score 3 05/29/2023 [facility] - Occupational Stress Questionnaire Answer Date Recorded [...] Choose not to disclose 2021 4:07 PM FLAG CAR DRIVER documented as of this encounter Progress Notes * Yana Chairez, FINANCIAL INSTITUTION VICE PRESIDENT,LPO - 12/13/2023 11:59 PM CDT S: Roderick is a 63 yom seen today in the [facility] Office for a LEFT transtibial check socket follow-up. Roderick stated that he has been able to don his prosthesis every day. He has been able to successfully walk on gravel, operate a skid steer, and complete his ADLs independently. He is satisfied withhis progress so far. Roderick did state that he felt like the prosthesis was slightly too tall. He also mentioned that when he was doing some of his PT exercises that involved squatting, the posterior lateral trimline felt like it was pinching. DX: Z89.512 (LEFT BK - 06/01/2023) O: 5' 6, 280 lbs. K3 ambulator. Pt arrived in clinic using a knee scooter for the left side, wearing a senior business process analyst on his left residual limb. Skin is intact. No evidence of skin irritation or breakdown. Distal end redness appears the same. Roderick had his surgeon look at the distal end last week and was told it was okay. Socket fit with 8-ply of socks. Distal contact was confirmed visually through the check socket. A: Prosthetic height and pt's hips were assessed, and pt felt most comfortable with a 3/4 block underneath his right foot. Prosthesis was shortened by 3/4. I heated and flared the posterior lateraltrimline to reduce pressure when he bends his knee past 90 degrees. Pt walked in parallel bars ~10 times. Gait appears smooth and without deviations. Pt still having difficulty with reaching the pushbutton on the lock to doff the prosthesis. Pull cable should resolve this problem. After walking, the prosthesis was doffed, and the patient???s skin was checked. No persistent red hunter or any otherindications of extreme pressure or skin abrasion. Pt stated he was ready to move on to the definitive socket. P: Check socket prosthesis will be sent to the lab and a definitive socket will be fabricated. Pt chose [employer] Legs sleeve to be used in the lamination. Definitive socket will include a flexible inner socket to accommodate additional fluctuation in volume if needed and to improve comfort at trimlines. Bulldog pull cable lock will be installed in definitive to ease the doffing process of the prosthesis. Pt is to continue wearing a senior business process analyst when not wearing the prosthesis. Pt will be called to scheduledelivery appt once fabrication is complete (hopefully by next Sunday?). Next step: deliver definitive socket - review how to use pull cable lock G: The goal of the prosthesis is to increase Roderick???s independence by helping him perform his ADLs, ambulate within his home and community so he can get back to doing the things he enjoys, includingwalking, spending time outside in the [place], riding four-wheelers, and deer hunting. Additionally, a prosthesis for the left side will help put less strain on his right side, reducing the risk of injury and possible amputation of the right leg. Electronically signed by Yana Chairez CPO, LPO documented in this encounter Plan of Treatment Upcoming Encounters Date Type Department Care Team (Late st Contact Info) Description 02/19/2024 8:00 AM CDT Appointment [facility] W[facility] Clinic [place] [address] [facility] [address] [place] [phone] Kenan Black MD Vascular, Vein, and Wound [address] [facility] [address] [place] [address] 03/27/2024 8:30 AM CDT Office Visit [facility] Physical Medicine and Rehabilitation Clinic [place] [address] [facility], [address] [place] [phone] Chucho Santizo MD 9[address] [place], [place] [address] documented as of this encounter Visit Diagnoses Not on filedocumented in this encounter Additional Health Concerns Assessment Noted Time PHQ-9 Depression Total Score: 12 023 1:40 PM FLAG CAR DRIVER documented as of this encounter Care Teams Weaving Machine Operator Relationship Specialty Start Date End Date Ben Cadena PCP - General Family Practice 09/04/19 Angel Mccormick MD Family Practice 09/04/19 Chucho Clement MD [address] [place] [address] Orthopedics 09/04/19 Darion So MD [address] [place] [phone] Nephrology 12/09/20 Gutierrez Guthrie DO [facility] Vicente Mckay, [facility] 200 [place], [place] [phone] Orthopaedic Surgery Foot and Ankle Surgery 02/05/23 Erick Lagunas MD [address] [facility] 300 [place] [address] Assigned Infectious Disease Provider 02/10/23 Chucho Santizo MD 909 [place] [address] Assigned Neuroscience Provider 10/05/23 [facility] [address] [place] [address] Assigned PCP 11/13/23 documented as of this encounter
--- OUTSIDE RECORDS SUMMARY | 2024-02-09 04:41 | XMS_ITS | Encounter Summary ---
Author Organization [place] Address [address] [place] [address] Care Team Providers Care Passenger Service Supervisor Name Role Phone Ben Cadena Primary Care Provider [phone] Angel Mccormick MD Unavailable [phone] Chucho Clement MD Unavailable [phone] Darion So MD Unavailable [phone] Robert Boggs PhD LP Unavailable [phone] Regis Lyons MD Unavailable [phone] Gutierrez Guthrie DO Unavailable [phone] Erick Lagunas MD Unavailable [phone] Analilia, Azucena Vears APRN CHIEF OF STAFF DOCTOR Unavailable Un available Analilia, Azucena Veras APRN CHIEF OF STAFF DOCTOR Unavailable Un available Analilia, Azucena Veras APRN CHIEF OF STAFF DOCTOR Unavailable Un available Chucho Santizo MD Unavailable [phone] Analilia, Azucena Veras APRN CHIEF OF STAFF DOCTOR Unavailable Un available Clinic - [facility] Unavailabl e Encounter Details Date Type Department Care Team (Late st Contact Info) Description 05/08/2022 MyC Medical Advice [address] [address] Pamela Silvestre Social History Tobacco Use Types Packs/Day Years [...] Choose not to disclose 2021 4:07 PM SNACK BAR COOK documented as of this encounter Plan of Treatment Upcoming Encounters Date Type Department Care Team (Late st Contact Info) Description 02/19/2024 8:00 AM CDT Appointment [facility] [address] [phone] Kenan Black MD Vascular, Vein, and Wound [address] [place] [address] [address] [address] 03/27/2024 8:30 AM CDT Office Visit [facility] [place] [address] [facility], [address] [place] [address] Chucho Santizo MD [address] [place] [address]1985[address] documented as of this encounter Visit Diagnoses Not on filedocumented in this encounter Additional Health Concerns Assessment Noted Time PHQ-9 Depression Total Score: 2 06/30/20 21 7:02 AM SNACK BAR COOK documented as of this encounter Care Teams Passenger Service Supervisor Relationship Specialty Start Date End Date Ben Cadena PCP - General Family Practice 09/04/19 Angel Mccormick MD Family Practice 09/04/19 Chucho Clement MD [address] [place] [address] Orthopedics 09/04/19 Darion So MD [address] [place] [phone] Nephrology 12/09/20 Robert Boggs, PhD LP [address] [facility] [address] [place] [address] Assigned Behavioral Health Provider 07/10/21 02/23/23 Regis Lyons MD [address] [facility] [address] [place] [address] Assigned Surgical Provider 08/21/21 02/02/23 Gutierrez Guthrie DO [facility] Vicente Mckay, [facility] 200 [place] [address] Orthopaedic Surgery Foot and Ankle Surgery 02/05/23 Erick Lagunas MD [facility] Mom[address] Marrero [facility] 300 [place] [address] Assigned Infectious Disease Provider 02/10/23 Azucena Billingsley APRN CHIEF OF STAFF DOCTOR Assigned Pain Medication Provider 06/16/23 08/15/23 Azucena Billingsley APRN CHIEF OF STAFF DOCTOR Assigned PCP 05/09/23 09/13/23 Azucena Billingsley APRN CHIEF OF STAFF DOCTOR Assigned PCP 10/13/23 11/12/23 Chucho Santizo MD 9 [place] [address] Assigned Neuroscience Provider 10/05/23 Azucena Billingsley APRN CHIEF OF STAFF DOCTOR Assigned PCP 09/14/23 10/12/23 [facility] [address] [place] [address] Assigned PCP 11/13/23 documented as of this encounter
--- OUTSIDE RECORDS SUMMARY | 2024-02-09 04:41 | XMS_ITS | Encounter Summary ---
Author Organization [place] Address [address] [place] [address] Care Team Providers Care Special Effects Technician Name Role Phone Ben Cadena Primary Care Provider [phone] Angel Mccormick MD Unavailable [phone] Chucho Clement MD Unavailable [phone] Darion So MD Unavailable [phone] Robert Boggs PhD LP Unavailable [phone] Regis Lyons MD Unavailable [phone] Gutierrez Guthrie DO Unavailable [phone] Erick Lagunas MD Unavailable [phone] Analilia, Azucena Veras APRN SENIOR WEB ENGINEER Unavailable Un available Analilia, Azucena Veras APRN SENIOR WEB ENGINEER Unavailable Un available Analilia, Azucena Veras APRN SENIOR WEB ENGINEER Unavailable Un available Chucho Santizo MD Unavailable [phone] Analilia, Azucena Veras APRN SENIOR WEB ENGINEER Unavailable Un available Clinic - [facility] Unavailabl e Encounter Details Date Type Department Care Team (Late st Contact Info) Description 10/06/2021 [facility] [address] 4th [place] [address] Chris Norris Social History Tobacco [...] Choose not to disclose 2021 4:07 PM WORD PROCESSOR TECHNICIAN documented as of this encounter Plan of Treatment Upcoming Encounters Date Type Department Care Team (Late st Contact Info) Description 02/19/2024 8:00 AM CDT Appointment [facility] [address] [phone] Kenan Black MD Vascular, Vein, and Wound [address] [place] [address] 03/27/2024 8:30 AM CDT Office Visit [facility] [place] [address] [facility], [address] [place] [phone] Chucho Santizo MD [address] [place] [address] documented as of this encounter Visit Diagnoses Not on filedocumented in this encounter Additional Health Concerns Assessment Noted Time PHQ-9 Depression Total Score: 2 06/30/20 21 7:02 AM WORD PROCESSOR TECHNICIAN documented as of this encounter Care Teams Special Effects Technician Relationship Specialty Start Date End Date Ben Cadena PCP - General Family Practice 09/04/19 Angel Mccormick MD Family Practice 09/04/19 Chucho Clement MD [address] [place] [address] Orthopedics 09/04/19 Darion So MD [address] [place] [phone] Nephrology 12/09/20 Robert Boggs, PhD LP [address] [facility] 741 [place] [address] Assigned Behavioral Health Provider 07/10/21 02/23/23 Regis Lyons MD [address] [facility] 195 [place] [address] Assigned Surgical Provider 08/21/21 02/02/23 Gutierrez Guthrie DO [address], [facility] 200 [place] [address] Orthopaedic Surgery Foot and Ankle Surgery 02/05/23 Erick Lagunas MD [address] [facility] 300 [place] [address] Assigned Infectious Disease Provider 02/10/23 Azucena Billingsley APRN SENIOR WEB ENGINEER Assigned Pain Medication Provider 06/16/23 08/15/23 Azucena Billingsley APRN SENIOR WEB ENGINEER Assigned PCP 05/09/23 09/13/23 Azucena Billingsley APRN SENIOR WEB ENGINEER Assigned PCP 10/13/23 11/12/23 Chucho Santizo MD 9 [place] [address] Assigned Neuroscience Provider 10/05/23 Azucena Billingsley APRN SENIOR WEB ENGINEER Assigned PCP 09/14/23 10/12/23 [facility] [address] [place], [place] [address] Assigned PCP 11/13/23 documented as of this encounter
--- OUTSIDE RECORDS SUMMARY | 2024-02-09 04:41 | XMS_ITS | Encounter Summary ---
Author Organization [place] Address [facility] [place] [address] Care Team Providers Care Primer Assembler Name Role Phone Ben Cadena Primary Care Provider [phone] Angel Mccormick MD Unavailable [phone] Chucho Clement MD Unavailable [phone] Darion So MD Unavailable [phone] Gutierrez Guthrie DO Unavailable [phone] Erick Lagunas MD Unavailable Chucho Santizo MD Unavailable [phone] [facility] Unavailabl e Reason for Visit * Reason Onset Date Comments WOUND CARE 01/30/2024 Encounter Details Date Type Department Care Team (Late st Contact Info) Description 01/30/2024 Telephone [facility] [address] [place] [address] Kenan Black MD Vascular, Vein, and Wound [address] [facility] [address] [place] [address] WOUND CARE Social History Tobacco Use Types Packs/Day Years [...] any clubs o r organizations such as hindu groups, unions, fraternal or athletic groups, or [...] Answer Date Recorded PHQ-2 Score 3 05/29/2023 [facility] - Occupational Stress Questionnaire Answer Date Recorded [...] Choose not to disclose 2021 4:07 PM MUSHROOM PACKER documented as of this encounter Miscellaneous Notes * Telephone Encounter - Purnima Solis - 02/05/2024 1:53 PM CDT Second and final call made to patient to offer [place] scheduling as well as to confirm patient's 02/19/24 appt. VM was left for patient to call the clinic * Telephone Encounter - Purnima Solis - 01/30/2024 1:55 PM CDT Patient left a vm after clinic hours 01/29/24 requesting to reschedule his 01/22/24 cancelled appointment. Diesel Engine Operator returned call 01/30/24. Patient was unavailable and a voicemail was left for the patient to call the clinic for scheduling. Note: Patient's 01/22/24 appt was a NEW patient appointment and he currently has a a return visit scheduled for 02/19/24. If patient is not reached after a second and final attempt and does not return the calls to the clinic, please adjust the 02/18 appt to a NEW patient appt and comment in the appt notes that attempts were made to schedule follow ups without success. documented in this encounter Plan of Treatment Upcoming Encounters Date Type Department Care Team (Late st Contact Info) Description 02/19/2024 8:00 AM CDT Appointment [facility] [address] [place] [phone] Kenan Black MD Vascular, Vein, and Wound [address] [facility] [address], [place] [address] 03/27/2024 8:30 AM CDT Office Visit [facility] [place] [address] [facility], [address] [place] [phone] Chucho Santizo MD 9 [place] [address] documented as of this encounter Visit Diagnoses Not on filedocumented in this encounter Additional Health Concerns Assessment Noted Time PHQ-9 Depression Total Score: 12 023 1:40 PM MUSHROOM PACKER documented as of this encounter Care Teams Primer Assembler Relationship Specialty Start Date End Date Ben Cadena PCP - General Family Practice 09/04/19 Angel Mccormick MD Family Practice 09/04/19 Chucho Clement MD [facility] [address] [place] [address] Orthopedics 09/04/19 Darion So MD [address] [place] [address] Nephrology 12/09/20 Gutierrez Guthrie DO [facility] Vicente Mckay, [facility] 200 [place] [address] Orthopaedic Surgery Foot and Ankle Surgery 02/05/23 Erick Lagunas MD [address] [facility] 300 [place] [address] Assigned Infectious Disease Provider 02/10/23 Chucho Santizo MD [address] [place] [address] Assigned Neuroscience Provider 10/05/23 [facility] [address] [place] [address] Assigned PCP 11/13/23 documented as of this encounter
--- OUTSIDE RECORDS SUMMARY | 2024-02-09 04:41 | XMS_ITS | Encounter Summary ---
Author Organization [place] Address [facility] [place] [address] Care Team Providers Care Venetian Blind Cleaner And Repairer Name Role Phone Ben Cadena Primary Care Provider [phone] Angel Mccormick MD Unavailable [phone] Chucho Clement MD Unavailable [phone] Darion So MD Unavailable [phone] Gutierrez Guthrie DO Unavailable [phone] Erick Lagunas MD Unavailable [phone] Chucho Santizo MD Unavailable [phone] [facility] Unavailabl e Encounter Details Date Type Department Care Team (Late st Contact Info) Description 11/29/2023 Documentation Only [facility] [address], [address] [place] [phone] Yana Chairez, ARMORED CABLE 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,LPO Social History Tobacco Use Types Packs/Day Years [...] Never 05/29/2023 How often do you attend [facility] or pentecostal services? Never 05/29/2023 Do you belong to any clubs o r organizations such as jain groups, unions, fraternal or athletic groups, or [...] Answer Date Recorded PHQ-2 Score 3 05/29/2023 [facility] - Occupational Stress Questionnaire Answer Date Recorded [...] in an abandoned building, in an overnight care home, or couch-surfing.) Patient refused 05/29/2023 Are you [...] Choose not to disclose 2021 4:07 PM PROCESSING INSPECTOR documented as of this encounter Progress Notes * Yana Chairez, ARMORED CABLE 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,LPO - 11/29/2023 11:59 PM CDT S: Roderick is a 63 yom seen today in the [facility] Office for a LEFT transtibial check socket follow-up. Roderick stated that his leg swelled up a couple days ago and he wasn't able to get his prosthesis on even with no socks until today. When he was able to wear his prosthesis, he reported feeling likethe medial proximal trimline was digging into the inside of his leg. He is still experiencing some mild pain at the anterior distal tibia. No pain in the posterior calf anymore. He has come up with a good system to donning his liner while putting his limb on a short stool. Still having difficulty reaching the button to release the pin from the lock mechanism. DX: Z89.512 (LEFT BK - 06/01/2023) O: 5' 6, 280 lbs. K3 ambulator. Pt arrived in clinic using a knee scooter for the left side, wearing a custodial services manager on his left residual limb. Skin is intact. No evidence of skin irritation or breakdown. Distal end does appear to look more red than it did last time. Pt is following up with his surgeonnext Sunday, so he will have him check that out. Socket fit with 9-ply of socks. Distal contact wasconfirmed visually through the check socket. A: I heated and flared the medial proximal trimline away from the inside of his leg. Pt walked in parallel bars ~8 times and stated that it felt better. Gait appears smooth and without deviations. I did switch out the lock for one with a longer push button to see if that would help him be able to doff the prosthesis easier. The extended push button was not enough to ease the doffing process. I will order a pull cable lock to install in his prosthesis next time. After walking, the prosthesis was doffed, and the patient???s skin was checked. No persistent red hunter or any other indications of extreme pressure or skin abrasion. P: Pt is to call [facility] if he gets any red hunter that don???t go way after 10 minutes or anyblisters, wounds or bleeding, etc. Pt is to slowly increase the wear time of his prosthesis. Pt is to continue wearing a custodial services manager when not wearing the prosthesis. Pt has his last PT appt coming up. F/U scheduled in 2 weeks. I will continue to follow-up on a bi-weekly basis with Roderick until there are no significant static,dynamic nor volume changes from week to week. At that time, a definitive socket will be made. Next step: regular check socket follow-up - install pull cable lock G: The goal of [...] Appointment [facility] [place] [address] [facility] [address] [place] [phone] Kenan Black MD Vascular, Vein, and Wound [address] [facility] [address] [place] [address] 03/27/2024 8:30 AM CDT Office Visit [facility] [place] [address] [facility], [address] [place] [phone] Chucho Santizo MD [address] [place] [address] documented as of this encounter Visit Diagnoses Not on filedocumented in this encounter Additional Health Concerns Assessment Noted Time PHQ-9 Depression Total Score: 12 023 1:40 PM PROCESSING INSPECTOR documented as of this encounter Care Teams Venetian Blind Cleaner And Repairer Relationship Specialty Start Date End Date Ben Cadena PCP - General Family Practice 09/04/19 Angel Mccormick MD Family Practice 09/04/19 Chucho Clement MD [address] [place] [address] Orthopedics 09/04/19 Darion So MD [address] [place] [phone] Nephrology 12/09/20 Gutierrez Guthrie DO [facility] Vicente Mckay, [address] [place] [address] Orthopaedic Surgery Foot and Ankle Surgery 02/05/23 Erick Lagunas MD [address] [facility] 300 [place] [address] Assigned Infectious Disease Provider 02/10/23 Chucho Santizo MD [address] [place] [address] Assigned Neuroscience Provider 10/05/23 [facility] [address] [place] [address] Assigned PCP 11/13/23 documented as of this encounter
--- OUTSIDE RECORDS SUMMARY | 2024-02-09 04:41 | XMS_ITS | Encounter Summary ---
Author Organization [place] Address [facility] [place] [address] Care Team Providers Care Supervisor Cytogenetic Laboratory Name Role Phone Ben Cadena Primary Care Provider [phone] Angel Mccormick MD Unavailable [phone] Chucho Clement MD Unavailable [phone] Darion So MD Unavailable [phone] Gutierrez Guthrie DO Unavailable [phone] Erick Lagunas MD Unavailable [phone] Chucho Santizo MD Unavailable [phone] [facility] Unavailabl e Encounter Details Date Type Department Care Team (Late st Contact Info) Description 12/21/2023 Documentation Only [facility] [address], [address] [place] [phone] Yana Chairez, OIL PIT ATTENDANT,LPO Social History Tobacco Use Types Packs/Day Years [...] Never 05/29/2023 How often do you attend [facility] or mormon services? Never 05/29/2023 Do you belong to [...] Answer Date Recorded PHQ-2 Score 3 05/29/2023 [facility] - Occupational Stress Questionnaire Answer Date [...] in an abandoned building, in an overnight longterm, or couch-surfing.) Patient refused 05/29/2023 Are you [...] Choose not to disclose 2021 4:07 PM SHADOWGRAPH SCALE OPERATOR documented as of this encounter Progress Notes * Yana Chairez, ,LPO - 12/21/2023 11:35 AM CDT S: Roderick is a 63 yom seen today in the [facility] Office for delivery of his left TT definitive prosthesis. Pt states he has been wearing his j2ee architect most days, but two days ago he took some time off, which led to his leg being swollen yesterday. He put his compression back on and now his leg is back to normal. Pt is anxious to get his final leg today. DX: Z89.512 (LEFT BK - 06/01/2023) O: 5??? 6?? , 280 lbs. K3 ambulator. Pt arrived in clinic using a knee scooter for the left side, wearing a compression wrap on his left residual limb. Skin is intact, distal end appears less red today. Definitive socket was donned with 5- ply of socks. Pt was pleased with the [employer] Andrea[employer] Legs sleeve design. Prosthetic height was appropriate and comfortable for the pt. Definitive socket design: custom molded total contact, endoskeletal, carbon fiber (lightweight material) laminated w/ acrylic resin, black proflex flexible inner socket, Bulldog pin lock suspension with pull cable (pull cable laminated into lateral side of socket) used with Ossur Comfort locking liner (size 36, 3mm wave), and a [facility] foot (L, 25 cm, cat 8, foot shell). A: Static alignment was performed. Dynamic alignment was performed. Pt walked in the parallel bars for ~5 minutes. Pt stated he felt like it was tight on the back of his calf. I removed material fromthe outside of the flexible inner liner in the posterior calf region. This helped reduce the pressure on his calf. Pt's gait was smooth and without deviations. Pt stated that the socket was comfortable. Posterior trimline was comfortable for pt when seated. After walking, prosthesis was doffed and pt's skin was checked. There were no persistent red hunter or any other indications of excessive pressure. No alignment adjustments made today. All screws have been treated with Loctite and torqued to state superintendent of schools's specifications. Pt was able to operate the pull cable lock to doff his prosthesis independently. Pt walked out of the clinic wearing the prosthesis with some assistance from his knee scooter. Today the patient was provided with: - Definitive custom molded socket made of acrylic and ultra-light weight materials (endoskeletal, alignable system, total contact), suspended with pin lock suspension (pull cable lock). - Custom molded flexible inner socket Pt will continue to use the following: - Liner: Ossur Comfort locking liner, size 36, 3mm wave - Foot: [facility] foot, LEFT, 25 cm, cat 8, foot shell; SN: [id number] - Prosthetic socks to manage limb volume fluctuations P: Pt decided he would like to follow-up as needed. I did inform Roderick that he is able to get new liners, socks, and shrinkers every 6 months through his insurance. If pt experiences any pain, excessive redness, or skin breakdown on his residual limb, pt is to discontinue use of the prosthesis and call the [facility] office. Pt is to wear his j2ee architect/compression when not wearing the prosthesis. Pt is to call the office with any questions or concerns regarding his prosthesis and/or residual limb. Next step: F/U PRN G: This prosthesis increases Roderick???s independence by helping him perform his ADLs, ambulate within his home and community, and doing the things he enjoys, including walking, spending time outside in the [place], riding four-wheelers, and deer hunting. This prosthesis for the left side will help putless strain on his right side, reducing the risk of injury and possible amputation of the right leg. Electronically signed by Yana Chairez CPO, LPO documented in this encounter Plan of Treatment Upcoming Encounters Date Type Department Care Team (Late st Contact Info) Description 02/19/2024 8:00 AM CDT Appointment [facility] [address] [address] Kenan Black MD Vascular, Vein, and Wound [address] [place] [address] 03/27/2024 8:30 AM CDT Office Visit [facility] [address] [place] [address] Chucho Santizo MD [address] [place] [address] documented as of this encounter Visit Diagnoses Not on filedocumented in this encounter Additional Health Concerns Assessment Noted Time PHQ-9 Depression Total Score: 12 023 1:40 PM SHADOWGRAPH SCALE OPERATOR documented as of this encounter Care Teams Supervisor Cytogenetic Laboratory Relationship Specialty Start Date End Date Ben Cadena PCP - General Family Practice 09/04/19 Angel Mccormick MD Family Practice 09/04/19 Chucho Clement MD [address] [place] [address] Orthopedics 09/04/19 Darion So MD [address] [place] [address] Nephrology 12/09/20 Gutierrez Guthrie DO [address], [address] [place] [address] Orthopaedic Surgery Foot and Ankle Surgery 02/05/23 Erick Lagunas MD [address] [facility] [address] [place] [address] Assigned Infectious Disease Provider 02/10/23 Chucho Santizo MD [address] [place] [address] Assigned Neuroscience Provider 10/05/23 [facility] [address] [place] [address] Assigned PCP 11/13/23 documented as of this encounter
--- OUTSIDE RECORDS SUMMARY | 2024-02-09 04:41 | XMS_ITS | Encounter Summary ---
Author Organization [place] Address [facility]0 [place] [address] Care Team Providers Care [employer] Repairer Name Role Phone Ben Cadena Primary Care Provider [phone] Angel Mccormick MD Unavailable [phone] Chucho Clement MD Unavailable [phone] Darion So MD Unavailable [phone] Gutierrez Guthrie DO Unavailable + [phone] Erick Lagunas MD Unavailable [phone] Chucho Santizo MD Unavailable [phone] [facility] Unavailabl e Reason for Referral * Consultation (Routine: Next available opening) - Pending Review Specialty Diagnoses / Procedures Referred By Contac t Referred To Contact Wound Care Diagnoses Leg edema, right Pressure injury of left calf, stage 2 (H) Chucho Santizo MD [address] [place] [address] [facility] [address] [place] [address] [address] [place] [address] Referral ID Status Reason Start Date Expiration Date V isits Requested Visits Authorized [id number] Pending Review 12/27/2023 12/26/2024 1 1 Question Answer Preferred Location: [facility] Scheduling Instructions: Please call to schedule your appointment Reason for Referral: Venous Leg/Foot Ulcer Wound Location: Leg Select any known circulatory problems: Diabetes Is patient seeking surgery? No Does the patient require a Bandar lift? No Comments Please be aware that coverage of these services is subject to the terms and limitations of your health insurance plan. Call member services at your health plan with any benefit or coverage questions. Please call to schedule your appointment Reason for Visit * Reason Comments Consult Pt is having difficu lty getting a compression Velcro-stocking for right leg through insurance. Encounter Details Date Type Department Care Team (Latest Contact Info) Description 12/27/2023 10:00 AM CDT Office Visit [facility] and Rehabilitation Clinic [address], [address] [place] [address] Chucho Santizo MD [address] [place] [address] Below-knee amputation of left lower extremity, subsequent encounter (H24) (Primary Dx); Leg edema, right; Pressure injury of left calf, stage 2 (H) Social History Tobacco Use Types Packs/Day Years Used Date Smoking Tobacco: Former Cigarettes 1.5 20 1 6 - 2005 Smokeless Tobacco: Never Alcohol Use [...] often do you attend chur ch or buddhism services? Never 05/29/2023 Do you belong to any clubs o r organizations such as judaism groups, unions, fraternal or athletic groups, or [...] Answer Date Recorded PHQ-2 Score 3 05/29/2023 [facility] - Occupational Stress Questionnaire Answer Date [...] Choose not to disclose 2021 4:07 PM PARALEGAL LEGAL SECRETARY documented as of this encounter Last Filed Vital Signs Vital Sign Reading Time Taken Comments Blood Pressure 142/70 12/27/2023 9:54 AM CDT Pulse - - Temperature - - Respiratory Rate - - Oxygen Saturation - - Inhaled Oxygen Concentration - - Weight - - Height - - Body Mass Index - - documented in this encounter Patient Instructions * Patient Instructions* Chucho Santizo MD - 12/27/2023 10:00 AM CDT Because you have a skin blister in your left leg, I recommend cutting your prosthesis wearing time in half for the next week prior to seeing your property management assistant. When you see her, please work out a temporary solution to make sure the blister doesn't worsen with continued prosthesis use before returning to using it 5-6 hours a day. I will also refer you to wound care in [place] to develop proper wound healing with dressings. Please closely follow with your assisted living coordinator to bring your Ha1c to goal levels. Make sure to bring your prosthesis to our next visit. documented in this encounter Progress Notes * Chucho Santizo MD - 12/27/2023 10:00 AM CDT Images from the original note were not included. PM&R Followup Note Patient Name: Roderick Walker : 1960 Medical Record: [id number] Amputee Information: Level of Amputation: Left transtibial PARLOR MAID: Yana Chairez Date of Surgery: 06/01/2023 Etiology: Diabetic Osteomyelitis Subjective: Last visit summary: I ordered a prosthesis, K3 level, for fitting when deemed appropriate by the highway administrative engineer, as his superficial post-amputation infection appeared healed. He is currently undergoing physical therapy. I also referred him to occupational therapy for a lightweight manual wheelchair. Interval History: He saw wheelchair seating who evaluated him for a K5 folding wheelchair. He has his completed K3 prosthesis and it is fitting well. He has no pain when using it. He didn't bring it to his visit today, but he's been wearing it for 5- 6 hours a day. He is able to don and doff the prosthesis using a modified cable system. He feels sore in the back of his calf after wearing it. He still has a tender spot on his right lateral leg. He notes a blister at the bottom front of his leg. He is in an online group for support. He feels like he's made good progress and has done many of the early functional goals he set out for himself. He has a blister on his leg for 2 weeks. The blister isn't painful. He doesn't get blisters frequently. He will talk about the blister with his property management assistant next week He has been dealing with severe right leg swelling since his amputation surgery that hasn't improved. He is wearing compression socks and is getting lymphedema therapy from [facility] physical therapy. The compression socks are too loose according to him. His surgery ENAMEL BURNER is taking care of his lower leg swelling. He has a doctor that is seeing him for diabetes in [facility]. Medications: Current Outpatient Medications Medication Sig Dispense Refill acetaminophen (TYLENOL) 325 MG tablet Take 3 tablets (975 mg) by mouth every 8 hours 90 tablet 1 allopurinol (ZYLOPRIM) 300 MG tablet Take 300 mg by mouth daily aspirin 81 MG EC tablet Take 1 tablet (81 mg) by mouth 2 times daily 60 tablet 0 atorvastatin (LIPITOR) 40 MG tablet Take 40 mg by mouth every morning brimonidine (ALPHAGAN-P) 0.15 % ophthalmic solution Place 1 drop into both eyes 2 times daily calcium acetate (PHOSLO) 667 MG CAPS capsule Take 667 mg by mouth 3 times daily (with meals) calcium polycarbophil (FIBERCON) 625 MG tablet Take 1 tablet by mouth 2 times daily as needed Cholecalciferol (VITAMIN D3) 50 MCG (2000 UT) CAPS Take 2,000 Units by mouth daily Continuous Blood Gluc Sensor (DEXCOM G6 SENSOR) MISC CHANGE EVERY 10 DAYS DIRECTED CONTOUR TEST test strip 4 times daily CONTOUR TEST test strip cyanocobalamin (VITAMIN B-12) 1000 MCG tablet Take 1,000 mcg by mouth daily dulaglutide (TRULICITY) 0.75 MG/0.5ML pen Inject 0.75 mg Subcutaneous every 7 days Ok per MDA to proceed with only 5 day hold DULoxetine (CYMBALTA) 30 MG capsule Take 1 capsule (30 mg) by mouth daily 30 capsule 0 insulin aspart (NOVOLOG FLEXPEN) 100 UNIT/ML pen Inject 10 Units Subcutaneous 3 times daily (with meals) Plus Sliding Scale 15 mL 0 insulin degludec (TRESIBA) 200 UNIT/ML pen Inject 50 Units Subcutaneous every morning 15 mL 0 KLOR-CON 20 MEQ CR tablet Take 20 mEq by mouth daily levothyroxine (SYNTHROID/LEVOTHROID) 125 MCG tablet Take 1 tablet (125 mcg) by mouth daily before breakfast for 30 days 30 tablet 0 metolazone (ZAROXOLYN) 2.5 MG tablet Take 5 mg by mouth once a week Only on Fridays metoprolol succinate ER (TOPROL-XL) 100 MG 24 hr tablet Take 100 mg by mouth daily nitroGLYcerin (NITROSTAT) 0.[address] 0.4 mg under the tongue as needed Every 5 min as needed up to 3 doses nortriptyline (PAMELOR) 25 MG capsule Take 1 capsule (25 mg) by mouth at bedtime for 30 days 30 capsule 0 OLANZapine (ZYPREXA) 2.5 MG tablet Take 1 tablet (2.5 mg) by mouth nightly as needed (sleep) 14 tablet 0 pantoprazole (PROTONIX) 40 MG EC tablet Take 40 mg by mouth daily polyethylene glycol (MIRALAX) 17 GM/Dose powder Take 17 g by mouth 2 times daily as needed for constipation 510 g 3 pregabalin (LYRICA) 50 MG capsule Take 1 capsule (50 mg) by mouth 2 times daily 60 capsule 0 rOPINIRole (REQUIP) 4 MG tablet Take 4 mg by mouth 2 times daily timolol, PF, (TIMOPTIC OCUDOSE) 0.5 % ophthalmic solution Place 1 drop into both eyes 2 times daily torsemide (DEMADEX) 20 MG tablet Take 80 mg by mouth 2 times daily vitamin B6 (PYRIDOXINE) 100 MG tablet Take 100 mg by mouth daily Allergies: Allergies Allergen Reactions Allopurinol Rash At high doses, tolerates current dose of 300 mg daily. Amlodipine Swelling Edema on 10mg, ok on 5mg. Quinolones Other (See Comments) Qtc prolonged Shellfish-Derived Products Hives and Itching Intermittently per pt report. Topiramate Hives ROS: A focused ROS is negative other than the symptoms noted above in the HPI. Physical Examination: VITAL SIGNS: There were no vitals taken for this visit. BMI: Estimated body mass index is 45.23 kg/m?? as calculated from the following: Height as of 07/06/23: 1.676 m (5' 6). Weight as of 07/08/23: 127.1 kg (280 lb 3.3 oz). Gait: Not assessed; did not bring his prosthesis Strength: Hip adduction Hip Flexion Knee Extension A. Plantarflex A. Dorsiflex R 5 5 5 5 5 L 5 5 5 NA NA Sensation: Some sensation in bilateral LE Residual Left TTA: Did not take down wraps, but blister visible. No contracture. Right lower extremity: generalized edema, with some pretibial skin breakdown. Some induration in lower calf, but blanchable. Prosthesis: did not bring Labs: LipidsNo results for input(s): CHOL, LDL, HDL, TRIG in the last 73443 hours. HgbA1c Recent Labs Lab Test 06/10/23 0647 01/05/23 2350 A1C 7.2* 8.8* Preet Ha1c: 7.6 on 11/12/23 Assessment/Plan: Roderick Walker is a 63 year old male with a relevant PMH of diabetes and left transtibial amputation on 06/01/23 complicated by infection, now resolved. His functional level is K3. #Left TTA #Stage 2 pressure injury of left leg #abrasion injury related to right leg edema #right leg edema Using prosthesis functionally, but he has developed a pressure injury. Low stage and should heal with some decreased prosthesis use until after seeing his property management assistant, but he is vulnerable due to hisuncontrolled diabetes - Wound care referral for secondary prevention and dressing - Compression garment ordered for right leg - Reduce use of prosthesis until seeing property management assistant for possibly some temporary modification to thesocket to accommodate blister while healing - Needs to see his assisted living coordinator closely for better DM control #Follow up - 3 months - prosthesis fit evaluation, wound assessment Chucho Santizo MD Physical Medicine & Rehabilitation I spent a total of 37 minutes on the date of service doing chart review, history and exam, documentation, and further activities as noted above. DME (Durable Medical Equipment) Orders and Documentation Orders Placed This Encounter Procedures Orthotics, Mastectomy and Custom Compression Orders The patient was assessed and it was determined the patient is in need of the following listed DME Supplies/Equipment. Please complete supporting documentation below to demonstrate medical necessity. The patient has risk factors for poor wound healing including diabetes that is difficult to controlin addition to persistent bilateral lower extremity edema in the setting of a left transtibital amputation. His right leg swelling increases his risk for developing wounds, and high compression is needed to reduce edema and lower this risk. Due to his diabetes, prolonged wounds and wound healing may result in a secondary amputation and severe decrease in his functional status and quality of life. documented in this encounter Plan of Treatment Upcoming Encounters Date Type Department Care Team (Late st Contact Info) Description 02/19/2024 8:00 AM CDT Appointment [facility] [address] [phone] Kenan Black MD Vascular, Vein, and Wound [address] [place] [address] 03/27/2024 8:30 AM CDT Office Visit [facility] Physical Medicine and Rehabilitation Clinic [place] [address] [facility], [address] [place] [phone] Chucho Santizo MD [address] [place] [address] Scheduled Referrals Name Type Priority Associated Diagnoses Orde r Schedule Wound Care Referral Referral Routine: Nex t available opening Leg edema, right Pressure injury of left calf, stage 2 (H) Expected: 12/27/2023 (Approximate), Expires: 12/26/2024 documented as of this encounter Visit Diagnoses Diagnosis Below-knee amputation of left lower extremity, subsequent encounter (H24)- Primary Leg edema, right Edema Pressure injury of left calf, stage 2 (H) documented in this encounter Additional Health Concerns Assessment Noted Time PHQ-9 Depression Total Score: 12 023 1:40 PM PARALEGAL LEGAL SECRETARY documented as of this encounter Care Teams [employer] Repairer Relationship Specialty Start Date End Date Ben Cadena PCP - General Family Practice 09/04/19 Angel Mccormick MD Family Practice 09/04/19 Chucho Clement MD [address] [place], [place] [address] [place] [address] Orthopedics 09/04/19 Darion So MD [address] [place] [phone] Nephrology 12/09/20 Gutierrez Guthrie DO [facility], [facility] 200 [place] [address] Orthopaedic Surgery Foot and Ankle Surgery 02/05/23 Erick Lagunas MD [address] [facility] 300 [place] [address] Assigned Infectious Disease Provider 02/10/23 Chucho Santizo MD [address] [place] [address] Assigned Neuroscience Provider 10/05/23 [facility] [address] [place] [address] Assigned PCP 11/13/23 documented as of this encounter
--- OUTSIDE RECORDS SUMMARY | 2024-02-09 04:42 | XMS_ITS | Encounter Summary ---
Author Organization [place] Address [address] [place] [address] Care Team Providers Care Line Service Attendant Name Role Phone Ben Cadena Primary Care Provider [phone] Angel Mccormick MD Unavailable [phone] Chucho Clement MD Unavailable [phone] Darion So MD Unavailable [phone] Carolina Flanagan PA-C Unavailable + [phone] Robert Boggs PhD LP Unavailable [phone] Milla Ramsay PA-C Unavailable [phone] Regis Lyons MD Unavailable [phone] Gutierrez Guthrie DO Unavailable + [phone] Erick Lagunas MD Unavailable [phone] AnaliliaAzucena APRN SAS DEVELOPER ANALYST Unavailable Un available AnaliliaAzucena APRN SAS DEVELOPER ANALYST Unavailable Un available AnaliliaAzucena APRN SAS DEVELOPER ANALYST Unavailable Un available Chucho Santizo MD Unavailable [phone] AnaliliaAzucena APRN SAS DEVELOPER ANALYST Unavailable Un available Clinic - [facility] Unavailabl e Encounter Details Date Type Department Care Team (Late st Contact Info) Description 08/08/2021 [facility] Management [facility] [place] [address] [facility] 4th [place] [address], RN [address] [facility] [address] [place] [address] Social History Tobacco Use Types Packs/Day Years Used Date Smoking Tobacco: Former Cigarettes Q uit: 2006 Smokeless Tobacco: Never Alcohol Use Standard [...] Choose not to disclose 2021 4:07 PM RIGGING FOREMAN COVID-19 Exposure Response Date Recorded In the last month, have you been in contact with someone who was confirmed or suspected to have Coronavirus / COVID-19? No / Unsure 08/04/2021 8:33 AM RIGGING FOREMAN documented as of this encounter Plan of Treatment Upcoming Encounters Date Type Department Care Team (Late st Contact Info) Description 02/19/2024 8:00 AM CDT Appointment [facility] [address] [phone] Kenan Black MD Vascular, Vein, and Wound [address] [place] [address] [place] [address] 03/27/2024 8:30 AM CDT Office Visit [facility] Physical Medicine and Rehabilitation Clinic [place] [address] [facility], [address] [place] [phone] Chucho Santizo MD [address] [place] [address] documented as of this encounter Visit Diagnoses Not on filedocumented in this encounter Additional Health Concerns Assessment Noted Time PHQ-9 Depression Total Score: 2 06/30/20 21 7:02 AM RIGGING FOREMAN documented as of this encounter Care Teams Line Service Attendant Relationship Specialty Start Date End Date Ben Cadena PCP - General Family Practice 09/04/19 Angel Mccormick MD Family Practice 09/04/19 Chucho Clement MD [address] [place] [address] [address] [place] [address] Orthopedics 09/04/19 Darion So MD [address] [place], [place] [address] [phone] Nephrology 12/09/20 Carolina Flanagan PA-C [address] [facility] [address] [place], [place] [address] Assigned Surgical Provider 01/16/21 08/20/21 Robert Boggs, PhD LP [address] [facility] [address] [place] [address] Assigned Behavioral Health Provider 07/10/21 02/23/23 Milla Ramsay PA-C [facility], SURGERY [address] [facility] [address] [place] [address] Assigned Gastroenterology Provider 08/21/21 09/24/21 Regis Lyons MD [address] [facility] [address] [place] [address] Assigned Surgical Provider 08/21/21 02/02/23 Gutierrez Guthrie DO [address], [place] [address] [place] [address] Orthopaedic Surgery Foot and Ankle Surgery 02/05/23 Erick Lagunas MD [address] [place] [address] [facility] 300 [place] [address] Assigned Infectious Disease Provider 02/10/23 Azucena Billingsley APRN SAS DEVELOPER ANALYST Assigned Pain Medication Provider 06/16/23 08/15/23 Azucena Billingsley APRN SAS DEVELOPER ANALYST Assigned PCP 05/09/23 09/13/23 Azucena Billingsley APRN SAS DEVELOPER ANALYST Assigned PCP 10/13/23 11/12/23 Chucho Santizo MD [address] [place] [address] Assigned Neuroscience Provider 10/05/23 Azucena Billingsley APRN SAS DEVELOPER ANALYST Assigned PCP 09/14/23 10/12/23 [facility] [address] [place] [address] Assigned PCP 11/13/23 documented as of this encounter
--- OUTSIDE RECORDS SUMMARY | 2024-02-09 04:42 | XMS_ITS | Encounter Summary ---
Author Organization [place] Address [address] [place] [address] Care Team Providers Care Hearing Aid Assembly Supervisor Name Role Phone Ben Cadena Primary Care Provider [phone] Angel Mccormick MD Unavailable [phone] Chucho Clement MD Unavailable [phone] Darion So MD Unavailable [phone] Carolina Flanagan PA-C Unavailable + [phone] Robert Boggs PhD LP Unavailable [phone] Milla Ramsay PA-C Unavailable [phone] Regis Lyons MD Unavailable [phone] Gutierrez Guthrie DO Unavailable + [phone] Erick Lagunas MD Unavailable [phone] AnaliliaAzucena APRN SHOP MANAGER Unavailable Un available AnaliliaAzucena APRN SHOP MANAGER Unavailable Un available AnaliliaAzucena chilel APRN SHOP MANAGER Unavailable Un available Chucho Santizo MD Unavailable [phone] AnaliliaAzucena APRN SHOP MANAGER Unavailable Un available Clinic - [facility] Unavailabl e Reason for Visit * Reason Onset Date Comments Call Back 08/17/2021 Encounter Details Date Type Department Care Team (Late st Contact Info) Description 08/17/2021 [facility] Weight Management Clinic [address] [place] [address] Rimma Lashanda, [place] [address] [place], [place] [phone] Call Back Social History Tobacco Use Types Packs/Day Years [...] Choose not to disclose 2021 4:07 PM SEGMENT ASSEMBLER COVID-19 Exposure Response Date Recorded In the last month, have you been in contact with someone who was confirmed or suspected to have Coronavirus / COVID-19? No / Unsure 08/04/2021 8:33 AM SEGMENT ASSEMBLER documented as of this encounter Miscellaneous Notes * Telephone Encounter - Tiana Granados - 08/17/2021 2:44 PM SEGMENT ASSEMBLER Reason for call: Other Patient called regarding (reason for call): returning call Additional comments: Patient had a missed call with a voicemail to call and schedule. The patient is not sure what to schedule and there are no notes on the patient chart. Patient said this is the second time this has happened to him. Please reach out to the patient if still needed and leave a DETAILED message as to what the patient needs scheduled. Phone number to reach patient: Home number on file [phone] (home) Best Time: anytime Can we leave a detailed message on this number? YES Travel screening: Not Applicable ENT ASSEMBLER documented in this encounter Plan of Treatment Upcoming Encounters Date Type Department Care Team (Late st Contact Info) Description 02/19/2024 8:00 AM CDT Appointment [facility] Wound Clinic [place] [address] [place] [phone] Kenan Black MD Vascular, Vein, and Wound [address] [facility] [address] [place] [address] 03/27/2024 8:30 AM CDT Office Visit [facility] Physical Medicine and Rehabilitation Clinic [place] [address] [facility], [address] [place] [phone] Chucho Santizo MD [address] [place] [address] documented as of this encounter Visit Diagnoses Not on filedocumented in this encounter Additional Health Concerns Assessment Noted Time PHQ-9 Depression Total Score: 2 06/30/20 21 7:02 AM SEGMENT ASSEMBLER documented as of this encounter Care Teams Hearing Aid Assembly Supervisor Relationship Specialty Start Date End Date Ben Cadena PCP - General Family Practice 09/04/19 Angel Mccormick MD Family Practice 09/04/19 Chucho Clement MD [address] [place] [address] Orthopedics 09/04/19 Dar[place] So MD [address] [place] [phone] Nephrology 12/09/20 Carolina Flnaagan PA-C [address] [facility] 195 [place] [address] Assigned Surgical Provider 01/16/21 08/20/21 Robert Boggs, PhD LP [address] [facility] [address] [place] [address] Assigned Behavioral Health Provider 07/10/21 02/23/23 Milla Ramsay PA-C [facility], SURGERY [address] [facility] [address] [place] [address] Assigned Gastroenterology Provider 08/21/21 09/24/21 Regis Lyons MD [address] [facility] [address] [place] [address] Assigned Surgical Provider 08/21/21 02/02/23 Gutierrez Guthrie DO [facility] 200 [place] [address] Orthopaedic Surgery Foot and Ankle Surgery 02/05/23 Erick Lagunas MD [facility] Momo Gregg [facility] 300 [place] [address] Assigned Infectious Disease Provider 02/10/23 Azucena Billingsley APRN SHOP MANAGER Assigned Pain Medication Provider 06/16/23 08/15/23 Azucena Billingsley APRN SHOP MANAGER Assigned PCP 05/09/23 09/13/23 Azucena Billingsley APRN SHOP MANAGER Assigned PCP 10/13/23 11/12/23 Chucho Santizo MD [address] [place] [address] Assigned Neuroscience Provider 10/05/23 Azucena Billingsley APRN [facility] Assigned PCP 09/14/23 10/12/23 [facility] [id number] [place], [place] [address] [address] Assigned PCP 11/13/23 documented as of this encounter
--- OUTSIDE RECORDS SUMMARY | 2024-02-09 04:42 | XMS_ITS | Encounter Summary ---
Author Organization [place] Address [address] [place] [address] Care Team Providers Care Seo Executive Name Role Phone Ben Cadena Primary Care Provider [phone] Angel Mccormick MD Unavailable +[phone] Chucho Clement MD Unavailable +[phone] Darion So MD Unavailable +[phone] Carolina Flanagan PA-C Unavailable + [phone] Robert Boggs PhD LP Unavailable +[phone] Milla Ramsay PA-C Unavailable +[phone] Regis Lyons MD Unavailable +[phone] Gutierrez Guthrie DO Unavailable + [phone] Erick Lagunas MD Unavailable +[phone] AnaliliaAzucena APRN SOCIAL INSURANCE SPECIALIST Unavailable Un available AnaliliaAzucena APRN SOCIAL INSURANCE SPECIALIST Unavailable Un available AnaliliaAzucena APRN SOCIAL INSURANCE SPECIALIST Unavailable Un available Chucho Santizo MD Unavailable [phone] AnaliliaAzucena APRN SOCIAL INSURANCE SPECIALIST Unavailable Un available Clinic - [facility] Unavailabl e Encounter Details Date Type Department Care Team (Late st Contact Info) Description 07/12/2021 [facility] Management [facility] [place] [id number] [facility] 4th [place] [address], RN 420 [facility] 195 [place] [address] Social History Tobacco Use Types Packs/Day Years [...] asked 10/06/2020 PHQ-2 Answer Date Recorded PHQ-2 Total Score (Adult) - Positive if 3 or more points; Administer PHQ-9 if positive 0 06/29/2021 Sex and Gender Information Value Date Recorded Sex Assigned at Male 11/29/2020 12:43 PM CDT Gender Identity Male 11/29/2020 12:43 PM CDT Sexual Orientation Choose not to disclose 2021 4:07 PM 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 documented as of this encounter Plan of Treatment Upcoming Encounters Date Type Department Care Team (Late st Contact Info) Description 02/19/2024 8:00 AM CDT Appointment [facility] W[facility] [address] [phone] Kenan Black MD Vascular, Vein, and Wound [address] [place] [address] 03/27/2024 8:30 AM CDT Office Visit [facility] Physical Medicine and Rehabilitation Clinic [place] [address] [facility], [address] [place] [phone] Chucho Santizo MD [address] [place] [address] documented as of this encounter Visit Diagnoses Not on filedocumented in this encounter Additional Health Concerns Assessment Noted Time PHQ-9 Depression Total Score: 2 06/30/20 21 7:02 AM SILK WINDING 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 documented as of this encounter Care Teams Seo Executive Relationship Specialty Start Date End Date Ben Cadena PCP - General Family Practice 09/04/19 Angel Mccormick MD Family Practice 09/04/19 Chucho Clement MD [address] [place], [place] [address] Orthopedics 09/04/19 Darion So MD [address] [place] [phone] Nephrology 12/09/20 Carolina Flanagan PA-C [address] [facility] 195 [place], [place] 330205 Assigned Surgical Provider 01/16/21 08/20/21 Robert Boggs, PhD LP [address] [facility] 741 [place], [place] 09[address]45 Assigned Behavioral Health Provider 07/10/21 02/23/23 Milla Ramsay PA-C [facility], SURGERY [address] [facility] [address] [place], [place] [address] Assigned Gastroenterology Provider 08/21/21 09/24/21 Regis Lyons MD [address] [facility] 195 [place] [address] Assigned Surgical Provider 08/21/21 02/02/23 Gutierrez Guthrie DO [address], [address] [address] Orthopaedic Surgery Foot and Ankle Surgery 02/05/23 Erick Lagunas MD [address] [place] [address] [facility] 300 [place] [address] Assigned Infectious Disease Provider 02/10/23 Azucena Billingsley APRN SOCIAL INSURANCE SPECIALIST Assigned Pain Medication Provider 06/16/23 08/15/23 Azucena Billingsley APRN SOCIAL INSURANCE SPECIALIST Assigned PCP 05/09/23 09/13/23 Azucena Billingsley APRN SOCIAL INSURANCE SPECIALIST Assigned PCP 10/13/23 11/12/23 Chucho Santizo MD [address] [place] [address] Assigned Neuroscience Provider 10/05/23 Azucena Billingsley APRN SOCIAL INSURANCE SPECIALIST Assigned PCP 09/14/23 10/12/23 [facility] [address] [place] [address] Assigned PCP 11/13/23 documented as of this encounter
--- OUTSIDE RECORDS SUMMARY | 2024-02-09 04:42 | XMS_ITS | Encounter Summary ---
Author Organization [place] Address [address] [place] [address] Care Team Providers Care Clinical Unit Educator Name Role Phone Ben Cadena Primary Care Provider [phone] Angel Mccormick MD Unavailable +[phone] Chucho Clement MD Unavailable +[phone] Darion So MD Unavailable +[phone] Carolina Flanagan PA-C Unavailable + [phone] Robert Boggs PhD LP Unavailable +[phone] Milla Ramsay PA-C Unavailable +[phone] Regis Lyons MD Unavailable +[phone] Gutierrez Guthrie DO Unavailable + [phone] Erick Lagunas MD Unavailable [phone] AnaliliaAzucena APRN BOAT OUTBOARD ENGINE MECHANIC Unavailable Un available AnaliliaAzucena APRN BOAT OUTBOARD ENGINE MECHANIC Unavailable Un available AnaliliaAzucena APRN BOAT OUTBOARD ENGINE MECHANIC Unavailable Un available Chucho Santizo MD Unavailable [phone] AnaliliaAzucena APRN BOAT OUTBOARD ENGINE MECHANIC Unavailable Un available Clinic - [facility] Unavailabl e Encounter Details Date Type Department Care Team (Late st Contact Info) Description 08/03/2021 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 No / Unsure 08/04/2021 8:33 AM FREIGHT TRUCKER documented as of this encounter Plan of Treatment Upcoming Encounters Date Type Department Care Team (Late st Contact Info) Description 02/19/2024 8:00 AM CDT Appointment [facility] [address] [phone] Kenan Black MD Vascular, Vein, and Wound [address] [place] [address] 03/27/2024 8:30 AM CDT Office Visit [facility] Medicine [facility] Rehabilitation [facility] [place] [address] [facility], [address] [place] [phone] Chucho Santizo MD [address] [place] [address] documented as of this encounter Visit Diagnoses Not on filedocumented in this encounter Additional Health Concerns Assessment Noted Time PHQ-9 Depression Total Score: 2 06/30/20 21 7:02 AM FREIGHT TRUCKER documented as of this encounter Care Teams Clinical Unit Educator Relationship Specialty Start Date End Date Ben Cadena PCP - General Family Practice 09/04/19 Angel Mccormick MD Family Practice 09/04/19 Chucho Clement MD [address] [place], [place] [address] Orthopedics 09/04/19 Darion So MD [address] [place] [phone] Nephrology 12/09/20 Carolina Flanagan PA-C [address] [facility] 195 [place], [place] 252965 Assigned Surgical Provider 01/16/21 08/20/21 Robert Boggs, PhD LP [address] [facility] 741 [place], [place] [address] Assigned Behavioral Health Provider 07/10/21 02/23/23 Milla Ramsay PA-C [facility], SURGERY [address] [facility] [address] [place], [place] [address] Assigned Gastroenterology Provider 08/21/21 09/24/21 Regis Lyons MD [facility] 195 [place], [place] [address] Assigned Surgical Provider 08/21/21 02/02/23 Gutierrez Guthrie DO [address], [facility] 200 [place] [address] Orthopaedic Surgery Foot and Ankle Surgery 02/05/23 Erick Lagunas MD [address] [facility] 300 [place] [address] Assigned Infectious Disease Provider 02/10/23 Azucena Billingsley APRN BOAT OUTBOARD ENGINE MECHANIC Assigned Pain Medication Provider 06/16/23 08/15/23 Azucena Billingsley APRN BOAT OUTBOARD ENGINE MECHANIC Assigned PCP 05/09/23 09/13/23 Azucena Billingsley APRN BOAT OUTBOARD ENGINE MECHANIC Assigned PCP 10/13/23 11/12/23 Chucho Santizo MD [address] [place] [address] Assigned Neuroscience Provider 10/05/23 Azucena Billingsley APRN BOAT OUTBOARD ENGINE MECHANIC Assigned PCP 09/14/23 10/12/23 [facility] [address] [place] [address] Assigned PCP 11/13/23 documented as of this encounter
--- OUTSIDE RECORDS SUMMARY | 2024-02-09 04:42 | XMS_ITS | Encounter Summary ---
Author Organization [place] Address [address] [place] [address] Care Team Providers Care System Planning Engineer Name Role Phone Ben Cadena Primary Care Provider [phone] Angel Mccormick MD Unavailable +[phone] Chucho Clement MD Unavailable +[phone] Darion So MD Unavailable [phone] Carolina Flanagan PA-C Unavailable + [phone] Robert Boggs PhD LP Unavailable +[phone] Milla Ramsay PA-C Unavailable +[phone] Regis Lyons MD Unavailable +[phone] Gutierrez Guthrie DO Unavailable + [phone] Erick Lagunas MD Unavailable +[phone] AnaliliaAzucena APRN WEB MARKETING ASSISTANT Unavailable Un available AnaliliaAzucena APRN WEB MARKETING ASSISTANT Unavailable Un available AnaliliaAzucena APRN WEB MARKETING ASSISTANT Unavailable Un available Chucho Santizo MD Unavailable [phone] AnaliliaAzucena APRN WEB MARKETING ASSISTANT Unavailable Un available Clinic - [facility] Unavailabl e Encounter Details Date Type Department Care Team (Late st Contact Info) Description 05/30/2021 [facility] Weight Management Clinic [place] 525939 [facility] 4th [place] [address], RN 420 [facility] 195 [place] [address] Social History Tobacco Use Types Packs/Day Years [...] 10/06/2020 PHQ-2 Answer Date Recorded PHQ-2 Score 4 01/06/2021 Sex and Gender Information Value Date Recorded Sex Assigned at Male 11/29/2020 12:43 PM CDT Gender Identity Male 11/29/2020 12:43 PM CDT Sexual Orientation Choose not to disclose 2021 4:07 PM VISUAL EFFECTS EDITOR documented as of this encounter Plan of Treatment Upcoming Encounters Date Type Department Care Team (Late st Contact Info) Description 02/19/2024 8:00 AM CDT Appointment [facility] Wound Clinic [address] [phone] Kenan Black MD Vascular, Vein, and Wound [address] [place] [address] 03/27/2024 8:30 AM CDT Office Visit [facility] Physical Medicine and Rehabilitation Clinic [place] [address]45 [facility], [address] [place] [phone] Chucho Santizo MD [address] [place] [address] documented as of this encounter Visit Diagnoses Not on filedocumented in this encounter Additional Health Concerns Assessment Noted Time PHQ-9 Depression Total Score: 5 01/07/20 8:18 AM CDT documented as of this encounter Care Teams System Planning Engineer Relationship Specialty Start Date End Date Ben Cadena Mango PCP - General Family Practice 09/04/19 Angel Mccormick MD Family Practice 09/04/19 Chucho Clement MD [address] [facility] [address] [place] [address] Orthopedics 09/04/19 Darion So MD [address] [place] [phone] Nephrology 12/09/20 Carolina Flanagan PA-C [address] [facility] 195 [place] [address] Assigned Surgical Provider 01/16/21 08/20/21 Robert Boggs, PhD LP [address] [facility] 741 [place] [address] Assigned Behavioral Health Provider 07/10/21 02/23/23 Milla Ramsay PA-C [place], SURGERY 909 [facility] [address] [place], [place] [address] Assigned Gastroenterology Provider 08/21/21 09/24/21 Regis Lyons MD [address] [place] [address] [facility] 195 [place], [place] [address] Assigned Surgical Provider 08/21/21 02/02/23 Gutierrez Guthrie DO [address], [facility] 200 [place] [address] Orthopaedic Surgery Foot and Ankle Surgery 02/05/23 Erick Lagunas MD [address] [place] [address] [facility] 300 [place] [address] Assigned Infectious Disease Provider 02/10/23 Azucena Billingsley APRN WEB MARKETING ASSISTANT Assigned Pain Medication Provider 06/16/23 08/15/23 Azucena Billingsley APRN WEB MARKETING ASSISTANT Assigned PCP 05/09/23 09/13/23 Azucena Billingsley APRN WEB MARKETING ASSISTANT Assigned PCP 10/13/23 11/12/23 Chucho Santizo MD [address] [place] [address] Assigned Neuroscience Provider 10/05/23 Azucena Billingsley APRN WEB MARKETING ASSISTANT Assigned PCP 09/14/23 10/12/23 [facility] [address] [place] [address] Assigned PCP 11/13/23 documented as of this encounter
--- OUTSIDE RECORDS SUMMARY | 2024-02-09 04:42 | XMS_ITS | Encounter Summary ---
Author Organization [place] Address [address] [facility] [place] [address] Care Team Providers Care Moto Mix Operator Name Role Phone Ben Cadena Primary Care Provider [phone] Angel Mccormick MD Unavailable [phone] Chucho Clement MD Unavailable +[phone] Darion So MD Unavailable [phone] Robert Boggs PhD LP Unavailable +[phone] Milla Ramsay PA-C Unavailable +[phone] Regis Lyons MD Unavailable +[phone] Gutierrez Guthrie DO Unavailable + [phone] Erick Lagunas MD Unavailable +[phone] AnaliliaAzucena APRN PROPERTY FIELD INSPECTOR Unavailable Un available AnaliliaAzucena APRN PROPERTY FIELD INSPECTOR Unavailable Un available AnaliliaAzucena APRN PROPERTY FIELD INSPECTOR Unavailable Un available Chucho Santizo MD Unavailable [phone] AnaliliaAzucena APRN PROPERTY FIELD INSPECTOR Unavailable Un available Clinic - [facility] Unavailabl e Encounter Details Date Type Department Care Team ([facility] st Contact Info) Description 08/29/2021 [facility] Medical Advice UR PREOP/PHASE II 2450 [place] [address] Marihcuy Ambrocio Social History Tobacco Use Types Packs/Day Years [...] Choose not to disclose 2021 4:07 PM DIRECT SELLING COUNSELOR COVID-19 Exposure Response Date Recorded In the last month, have you been in contact with someone who was confirmed or suspected to have Coronavirus / COVID-19? No / Unsure 08/04/2021 8:33 AM DIRECT SELLING COUNSELOR documented as of this encounter Plan of Treatment Upcoming Encounters Date Type Department Care Team (Late st Contact Info) Description 02/19/2024 8:00 AM CDT Appointment [facility] Wound Clinic [address] [phone] Kenan Black MD Vascular, Vein, and Wound [address] [place] [address] 03/27/2024 8:30 AM CDT Office Visit [facility] Physical Medicine and Rehabilitation Clinic [place] 2945 [facility], [address] [place] [phone] Chucho Santizo MD [address] [place] [address] documented as of this encounter Visit Diagnoses Not on filedocumented in this encounter Additional Health Concerns Assessment Noted Time PHQ-9 Depression Total Score: 2 06/30/20 21 7:02 AM DIRECT SELLING COUNSELOR documented as of this encounter Care Teams Moto Mix Operator Relationship Specialty Start Date End Date Ben Cadena PCP - General Family Practice 09/04/19 Angel Mccormick MD Family Practice 09/04/19 Chucho Clement MD [facility] [place] [address] [place] [address] Orthopedics 09/04/19 Darion So MD [address] [place] [address] Nephrology 12/09/20 Robert Boggs, PhD LP 420 [facility] 741 [place] [address] Assigned Behavioral Health Provider 07/10/21 02/23/23 Milla Ramsay PA-C [facility], SURGERY 909 [facility] [address] [place] [address] Assigned Gastroenterology Provider 08/21/21 09/24/21 Regis Lyons MD 420 [facility] 195 [place], [place] [address] Assigned Surgical Provider 08/21/21 02/02/23 Gutierrez Guthrie DO [address]ley Zhang [address], [address] [address] Orthopaedic Surgery Foot and Ankle Surgery 02/05/23 Erick Lagunas MD [address] [facility] 300 [place] [address] Assigned Infectious Disease Provider 02/10/23 Azucena Billingsley APRN PROPERTY FIELD INSPECTOR Assigned Pain Medication Provider 06/16/23 08/15/23 Azucena Billingsley APRN PROPERTY FIELD INSPECTOR Assigned PCP 05/09/23 09/13/23 Azucena Billingsley APRN PROPERTY FIELD INSPECTOR Assigned PCP 10/13/23 11/12/23 Chucho Santizo MD [address] [place] [address] Assigned Neuroscience Provider 10/05/23 Azucena Billingsley APRN PROPERTY FIELD INSPECTOR Assigned PCP 09/14/23 10/12/23 [facility] [address] [place] [address] Assigned PCP 11/13/23 documented as of this encounter
--- OUTSIDE RECORDS SUMMARY | 2024-02-09 04:42 | XMS_ITS | Encounter Summary ---
Author Organization [place] Address [address] [place] [address] Care Team Providers Care Microphone Operator Name Role Phone Ben Cadena Primary Care Provider [phone] Angel Mccormick MD Unavailable +[phone] Chucho Clement MD Unavailable +[phone] Darion So MD Unavailable [phone] Carolina Flanagan PA-C Unavailable + [phone] Robert Boggs PhD LP Unavailable +[phone] Milla Ramsay PA-C Unavailable +[phone] Regis Lyons MD Unavailable +[phone] Gutierrez Guthrie DO Unavailable + [phone] Erick Lagunas MD Unavailable +[phone] AnaliliaAzucena APRN ARCHIVIST Unavailable Un available AnaliliaAzucena APRN ARCHIVIST Unavailable Un available AnaliliaAzucena APRN ARCHIVIST Unavailable Un available Chucho Santizo MD Unavailable +[phone] AnaliliaAzucena APRN ARCHIVIST Unavailable Un available Clinic - [facility] Unavailabl e Encounter Details Date Type Department Care Team (Late st Contact Info) Description 07/12/2021 [facility] Weight Management Clinic [place] [id number] [facility] 4th [place] [address], RN 420 [facility] 195 [address] Social History Tobacco Use Types Packs/Day Years [...] Choose not to disclose 2021 4:07 PM ACCESS DIRECTOR documented as of this encounter Plan of Treatment Upcoming Encounters Date Type Department Care Team (Late st Contact Info) Description 02/19/2024 8:[address] [facility] Wound Clinic [address] [phone] Kenan Black MD Vascular, Vein, and Wound [address] [place] [address] 03/27/2024 8:30 AM CDT Office Visit [facility] Physical Medicine and Rehabilitation Clinic [place] 2945 [facility], [address] [place] [phone] Chucho Santizo MD [address] [place] [address] documented as of this encounter Visit Diagnoses Not on filedocumented in this encounter Additional Health Concerns Assessment Noted Time PHQ-9 Depression Total Score: 2 06/30/20 21 7:02 AM ACCESS DIRECTOR documented as of this encounter Care Teams Microphone Operator Relationship Specialty Start Date End Date Ben Cadena PCP - General Family Practice 09/04/19 Angel Mccormick MD Family Practice 09/04/19 Chucho Clement MD [address] [address] Orthopedics 09/04/19 Darion So MD [address] [place] [address] Nephrology 12/09/20 Carolina Flanagan PA-C [address] [facility] 195 650865 Assigned Surgical Provider 01/16/21 08/20/21 Robert Boggs, PhD LP [address] [facility] 741 [address] Assigned Behavioral Health Provider 07/10/21 02/23/23 Milla Ramsay PA-C [facility], SURGERY [address] [facility] [address] 495685 Assigned Gastroenterology Provider 08/21/21 09/24/21 Regis Lyons MD [address] [facility] 195 [address] Assigned Surgical Provider 08/21/21 02/02/23 Gutierrez Guthrie DO [address] Zhang [address], [address] [address] Orthopaedic Surgery Foot and Ankle Surgery 02/05/23 Erick Lagunas MD [address] [place] [address] [facility] 300 [place] [address] Assigned Infectious Disease Provider 02/10/23 Azucena Billingsley APRN ARCHIVIST Assigned Pain Medication Provider 06/16/23 08/15/23 Azucena Billingsley APRN ARCHIVIST Assigned PCP 05/09/23 09/13/23 Azucena Billingsley APRN ARCHIVIST Assigned PCP 10/13/23 11/12/23 [place]ucho Santizo MD [address] [place] [address] Assigned Neuroscience Provider 10/05/23 Azucena Billingsley APRN ARCHIVIST Assigned PCP 09/14/23 10/12/23 [facility] [address] [place] [address] Assigned PCP 11/13/23 documented as of this encounter
--- OUTSIDE RECORDS SUMMARY | 2024-02-09 04:42 | XMS_ITS | Encounter Summary ---
Author Organization [place] Address [address] [place] [address] Care Team Providers Care Wet Wash Assembler Name Role Phone Ben Cadena Primary Care Provider [phone] Angel Mccormick MD Unavailable +[phone] Chucho Clement MD Unavailable +[phone] Darion So MD Unavailable [phone] Carolina Flanagan PA-C Unavailable + [phone] Robert Boggs PhD LP Unavailable +[phone] Milla Ramsay PA-C Unavailable +[phone] Regis Lyons MD Unavailable +[phone] Gutierrez Guthrie DO Unavailable + [phone] Erick Lagunas MD Unavailable +[phone] AnaliliaAzucena APRN MACHINE FARMWORKER Unavailable Un available AnaliliaAzucena APRN MACHINE FARMWORKER Unavailable Un available AnaliliaAzucena APRN MACHINE FARMWORKER Unavailable Un available Chucho Santizo MD Unavailable [phone] AnaliliaAzucena APRN MACHINE FARMWORKER Unavailable Un available Clinic - [facility] Unavailabl e Encounter Details Date Type Department Care Team (Late st Contact Info) Description 08/10/2021 [facility] Preoperative Assessment Center [place] [id number] [facility] [address] 5th [place] [address] Leanne Andrew, BORIS Social History Tobacco Use Types Packs/Day Years [...] Choose not to disclose 2021 4:07 PM CENTRIFUGAL CASTING MACHINE TENDER COVID-19 Exposure Response Date Recorded In the last month, have you been in contact with someone who was confirmed or suspected to have Coronavirus / COVID-19? No / Unsure 08/04/2021 8:33 AM CENTRIFUGAL CASTING MACHINE TENDER documented as of this encounter Plan of Treatment Upcoming Encounters Date Type Department Care Team (Late st Contact Info) Description 02/19/2024 8:00 AM CDT Appointment [facility] Wound Clinic [address] [phone] Kenan Black MD Vascular, Vein, and Wound [address] [place] [address] 03/27/2024 8:30 AM CDT Office Visit [facility] Physical Medicine and Rehabilitation Clinic [address] 200 [place] [phone] Chucho Santizo MD [address] [place] [address] documented as of this encounter Visit Diagnoses Not on filedocumented in this encounter Additional Health Concerns Assessment Noted Time PHQ-9 Depression Total Score: 2 06/30/20 21 7:02 AM CENTRIFUGAL CASTING MACHINE TENDER documented as of this encounter Care Teams Wet Wash Assembler Relationship Specialty Start Date End Date Ben Cadena PCP - General Family Practice 09/04/19 Angel Mccormick MD Family Practice 09/04/19 Chucho Clement MD [address] [place], [place] [address] Orthopedics 09/04/19 Darion So MD [address] [place] [phone] Nephrology 12/09/20 Carolina Flanagan PA-C [address] [facility] 195 [place], [place] 87[address] Assigned Surgical Provider 01/16/21 08/20/21 Robert Boggs, PhD LP [address] [facility] 741 [place], [place] [address] Assigned Behavioral Health Provider 07/10/21 02/23/23 Milla Ramasy PA-C [facility], SURGERY 909 [facility] [address] [place] [address] Assigned Gastroenterology Provider 08/21/21 09/24/21 Regis Lyons MD [address] [facility] SE [facility] 195 [place] [address] Assigned Surgical Provider 08/21/21 02/02/23 Gutierrez Guthrie DO [address], [address] [address] Orthopaedic Surgery Foot and Ankle Surgery 02/05/23 Erick Lagunas MD [address] [place] [address] [facility] 300 [place] [address] Assigned Infectious Disease Provider 02/10/23 Azucena Billingsley APRN MACHINE FARMWORKER Assigned Pain Medication Provider 06/16/23 08/15/23 Azucena Billingsley APRN MACHINE FARMWORKER Assigned PCP 05/09/23 09/13/23 Azucena Billingsley APRN MACHINE FARMWORKER Assigned PCP 10/13/23 11/12/23 Chucho Santizo MD 909 [place] [address] Assigned Neuroscience Provider 10/05/23 Azucena Billingsley APRN MACHINE FARMWORKER Assigned PCP 09/14/23 10/12/23 [facility] [address] [place] [address] Assigned PCP 11/13/23 documented as of this encounter
--- OUTSIDE RECORDS SUMMARY | 2024-02-09 04:42 | XMS_ITS | Encounter Summary ---
Author Organization [place] Address [address] [place] [address] Care Team Providers Care Carbonating Stone Cleaner Name Role Phone Ben Cadena Primary Care Provider [phone] Angel Mccormick MD Unavailable +[phone] Chucho Clement MD Unavailable [phone] Darion So MD Unavailable [phone] Carolina Flanagan PA-C Unavailable + [phone] Robert Boggs PhD LP Unavailable +[phone] Milla Ramsay PA-C Unavailable +[phone] Regis Lyons MD Unavailable +[phone] Gutierrez Guthrie DO Unavailable + [phone] Erick Lagunas MD Unavailable [phone] AnaliliaAzucena APRN RECYCLING OPERATIONS MANAGER Unavailable Un available AnaliliaAzucena APRN RECYCLING OPERATIONS MANAGER Unavailable Un available AnaliliaAzucena APRN RECYCLING OPERATIONS MANAGER Unavailable Un available Chucho Santizo MD Unavailable [phone] AnaliliaAzucena APRN RECYCLING OPERATIONS MANAGER Unavailable Un available Clinic - [facility] Unavailabl e Encounter Details Date Type Department Care Team (Late st Contact Info) Description 08/10/2021 [facility] Preoperative Assessment Center [place] [address] [facility] SE 5th [place] [address] Beth Hernández, RN Social History Tobacco Use Types Packs/Day Years [...] Choose not to disclose 2021 4:07 PM FLOOR SANDING 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 COVID-19 Exposure Response Date Recorded In the last month, have you been in contact with someone who was confirmed or suspected to have Coronavirus / COVID-19? No / Unsure 08/04/2021 8:33 AM FLOOR SANDING 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 documented as of this encounter Plan of Treatment Upcoming Encounters Date Type Department Care Team (Late st Contact Info) Description 02/19/2024 8:00 AM CDT Appointment [facility] Wound Clinic [address] [phone] Kenan Black MD Vascular, Vein, and Wound [address] [place] [address] 03/27/2024 8:30 AM CDT Office Visit [facility] Physical Medicine and Rehabilitation Clinic [address] 200 [place] [phone] Chucho Santizo MD [address] [place] [address] documented as of this encounter Visit Diagnoses Not on filedocumented in this encounter Additional Health Concerns Assessment Noted Time PHQ-9 Depression Total Score: 2 06/30/20 21 7:02 AM FLOOR SANDING 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 documented as of this encounter Care Teams Carbonating Stone Cleaner Relationship Specialty Start Date End Date Ben Cadena PCP - General Family Practice 09/04/19 Angel Mccormick MD Family Practice 09/04/19 Chucho Clement MD [address] [facility] [address] [place], [place] [address] Orthopedics 09/04/19 Darion So MD [address] [place] [phone] Nephrology 12/09/20 Carolina Flanagan PA-C 420 [facility] 195 [place] [address] Assigned Surgical Provider 01/16/21 08/20/21 Robert Boggs, PhD LP 420 [facility] 741 [place], [place] [address] Assigned Behavioral Health Provider 07/10/21 02/23/23 Milla Ramsay PA-C [facility], SURGERY 909 [facility] SE [address] [place], [place] [address] Assigned Gastroenterology Provider 08/21/21 09/24/21 Regis Lyons MD 420 [facility] 195 [place] [address] Assigned Surgical Provider 08/21/21 02/02/23 Gutierrez Guthrie DO [facility] Vicente Mckay, [address] [address] Orthopaedic Surgery Foot and Ankle Surgery 02/05/23 Erick Lagunas MD [address] [place] [address] [facility] 300 [place] [address] Assigned Infectious Disease Provider 02/10/23 Azucena Billingsley APRN RECYCLING OPERATIONS MANAGER Assigned Pain Medication Provider 06/16/23 08/15/23 Azucena Billingsley APRN RECYCLING OPERATIONS MANAGER Assigned PCP 05/09/23 09/13/23 Azucena Billingsley APRN RECYCLING OPERATIONS MANAGER Assigned PCP 10/13/23 11/12/23 Chucho Santizo MD [address] [place] [address] Assigned Neuroscience Provider 10/05/23 Azucena Billingsley APRN RECYCLING OPERATIONS MANAGER Assigned PCP 09/14/23 10/12/23 [facility] [address] [place] [address] Assigned PCP 11/13/23 documented as of this encounter
--- OUTSIDE RECORDS SUMMARY | 2024-02-09 04:42 | XMS_ITS | Encounter Summary ---
Author Organization [place] Address [address] [place] [address] Care Team Providers Care Farm Machine Operator Name Role Phone Ben Cadena Primary Care Provider [phone] Angel Mccormick MD Unavailable +[phone] Chucho Clement MD Unavailable +[phone] Darion So MD Unavailable [phone] Carolina Flanagan PA-C Unavailable + [phone] Robert Boggs PhD LP Unavailable +[phone] Milla Ramsay PA-C Unavailable +[phone] Regis Lyons MD Unavailable +[phone] Gutierrez Guthrie DO Unavailable + [phone] Erick Lagunas MD Unavailable AnaliliaAzucena APRN PROJECT CONTROL MANAGER Unavailable Un available AnaliliaAzucena APRN PROJECT CONTROL MANAGER Unavailable Un available AnaliliaAzucena APRN PROJECT CONTROL MANAGER Unavailable Un available Chucho Santizo MD Unavailable [phone] AnaliliaAzucena APRN PROJECT CONTROL MANAGER Unavailable Un available Clinic - [facility] Unavailabl e Encounter Details Date Type Department Care Team (Late st Contact Info) Description 08/04/2021 [facility] Weight Management Clinic [address] 4th [place] [address] [facility] Social History Tobacco Use Types Packs/Day Years [...] Choose not to disclose 2021 4:07 PM FUGITIVE DETECTIVE COVID-19 Exposure Response Date Recorded In the last month, have you been in contact with someone who was confirmed or suspected to have Coronavirus / COVID-19? No / Unsure 08/04/2021 8:33 AM FUGITIVE DETECTIVE documented as of this encounter Plan of Treatment Upcoming Encounters Date Type Department Care Team (Late st Contact Info) Description 02/19/2024 8:00 AM CDT Appointment [facility] Wound Clinic [address] [phone] Kenan Black MD Vascular, Vein, and Wound [address] [place] [address] 03/27/2024 8:30 AM CDT Office Visit [facility] Physical Medicine and Rehabilitation Clinic [place] [address] [facility], [address] [place] [phone] Chucho Santizo MD [address] [place] [address] documented as of this encounter Visit Diagnoses Not on filedocumented in this encounter Additional Health Concerns Assessment Noted Time PHQ-9 Depression Total Score: 2 06/30/20 21 7:02 AM FUGITIVE DETECTIVE documented as of this encounter Care Teams Farm Machine Operator Relationship Specialty Start Date End Date Ben Cadena PCP - General Family Practice 09/04/19 Angel Mccormick MD Family Practice 09/04/19 Chucho Clement MD [address] [place], [place] [address] Orthopedics 09/04/19 Darion So MD [address] [place] [phone] Nephrology 12/09/20 Carolina Flanagan PA-C [address] [facility] 195 [place], [place] [address] Assigned Surgical Provider 01/16/21 08/20/21 Robert Boggs, PhD LP [facility] 741 [place], [place] [address] Assigned Behavioral Health Provider 07/10/21 02/23/23 Milla Ramsay PA-C [facility], SURGERY 909 [facility] [address] [place], [place] [address] Assigned Gastroenterology Provider 08/21/21 09/24/21 Regis Lyons MD [address] [facility] 195 [place], [place] [address] Assigned Surgical Provider 08/21/21 02/02/23 Gutierrez Guthrie DO [address], [facility] 200 [place] [address] Orthopaedic Surgery Foot and Ankle Surgery 02/05/23 Erick Lagunas MD [address] [facility] 300 [place] [address] Assigned Infectious Disease Provider 02/10/23 Azucena Billingsley APRN PROJECT CONTROL MANAGER Assigned Pain Medication Provider 06/16/23 08/15/23 Azucena Billingsley APRN PROJECT CONTROL MANAGER Assigned PCP 05/09/23 09/13/23 Azucena Billingsley APRN PROJECT CONTROL MANAGER Assigned PCP 10/13/23 11/12/23 Chucho Santizo MD [address] [place] [address] Assigned Neuroscience Provider 10/05/23 Azucena Billingsley APRN PROJECT CONTROL MANAGER Assigned PCP 09/14/23 10/12/23 [facility] [address] [place] [address] Assigned PCP 11/13/23 documented as of this encounter
--- OUTSIDE RECORDS SUMMARY | 2024-02-09 04:42 | XMS_ITS | Encounter Summary ---
Author Organization [place] Address [address] [place] [address] Care Team Providers Care Veterinary Dentist Name Role Phone Ben Cadena Primary Care Provider [phone] Angel Mccormick MD Unavailable [phone] Chucho Clement MD Unavailable [phone] Darion So MD Unavailable [phone] Carolina Flanagan PA-C Unavailable + [phone] Robert Boggs PhD LP Unavailable +[phone] Milla Ramsay PA-C Unavailable +[phone] Regis Lyons MD Unavailable +[phone] Gutierrez Guthrie DO Unavailable + [phone] Erick Lagunas MD Unavailable AnaliliaAzucena APRN FIELD MAP EDITOR Unavailable Un available AnaliliaAzucena APRN FIELD MAP EDITOR Unavailable Un available AnaliliaAzucena APRN FIELD MAP EDITOR Unavailable Un available Chucho Santizo MD Unavailable [phone] AnaliliaAzucena APRN FIELD MAP EDITOR Unavailable Un available Clinic - [facility] Unavailabl e Encounter Details Date Type Department Care Team (Late st Contact Info) Description 07/04/2021 [facility] Weight Management Clinic [address] 4th [place] [address] [facility] Social History Tobacco Use Types Packs/Day Years [...] Choose not to disclose 2021 4:07 PM MULTI SHARE PROGRAM COORDINATOR documented as of this encounter Plan of Treatment Upcoming Encounters Date Type Department Care Team (Late st Contact Info) Description 02/19/2024 8:00 AM CDT Appointment [facility] Wound Clinic [address] [phone] Kenan Black MD Vascular, Vein, and Wound [address] [place] [address] 03/27/2024 8:30 AM CDT Office Visit [facility] Physical Medicine and Rehabilitation Clinic [place] [address] [facility], [address] [place] [phone] Chucho Santizo MD [address] [place] [address] 4269[address] documented as of this encounter Visit Diagnoses Not on filedocumented in this encounter Additional Health Concerns Assessment Noted Time PHQ-9 Depression Total Score: 2 06/30/20 21 7:02 AM MULTI SHARE PROGRAM COORDINATOR documented as of this encounter Care Teams Veterinary Dentist Relationship Specialty Start Date End Date Ben Cadena Mango PCP - General Family Practice 09/04/19 Angel Mccormick MD Family Practice 09/04/19 Chucho Clement MD [facility] [address] [place] [address] Orthopedics 09/04/19 Darion So MD [address] [place] [phone] Nephrology 12/09/20 Carolina Flanagan PA-C 420 [facility] 195 [place] [address] Assigned Surgical Provider 01/16/21 08/20/21 Robert Boggs, PhD LP 420 [facility] 741 [place] [address] Assigned Behavioral Health Provider 07/10/21 02/23/23 Milla Ramsay PA-C [facility], SURGERY 909 [facility] [address] 4TH [place] [address] Assigned Gastroenterology Provider 08/21/21 09/24/21 Regis Lyons MD 420 [facility] 195 [place] [address] Assigned Surgical Provider 08/21/21 02/02/23 Gutierrez Guthrie DO [address], [facility] 200 [place] [address] Orthopaedic Surgery Foot and Ankle Surgery 02/05/23 Erick Lagunas MD [address] [facility] 300 [place] [address] Assigned Infectious Disease Provider 02/10/23 Azucena Billingsley APRN FIELD MAP EDITOR Assigned Pain Medication Provider 06/16/23 08/15/23 Azucena Billingsley APRN FIELD MAP EDITOR Assigned PCP 05/09/23 09/13/23 Azucena Billingsley APRN FIELD MAP EDITOR Assigned PCP 10/13/23 11/12/23 Chucho Santizo MD [address] [place] [address] Assigned Neuroscience Provider 10/05/23 Azucena Billingsley APRN FIELD MAP EDITOR Assigned PCP 09/14/23 10/12/23 [facility] [address] [place] [address] Assigned PCP 11/13/23 documented as of this encounter
--- OUTSIDE RECORDS SUMMARY | 2024-02-09 04:42 | XMS_ITS | Encounter Summary ---
Author Organization [place] Address [address] [place] [address] Care Team Providers Care Traveler Changer Name Role Phone Ben Cadena Primary Care Provider [phone] Angel Mccormick MD Unavailable +[phone] Chucho Clement MD Unavailable +[phone] Darion So MD Unavailable [phone] Carolina Flanagan PA-C Unavailable + [phone] Robert Boggs PhD LP Unavailable +[phone] Milla Ramsay PA-C Unavailable +[phone] Regis Lyons MD Unavailable +[phone] Gutierrez Guthrie DO Unavailable + [phone] Erick Lagunas MD Unavailable +[phone] AnaliliaAzucena APRN ENTERTAINMENT MANAGER Unavailable Un available AnaliliaAzucena APRN ENTERTAINMENT MANAGER Unavailable Un available AnaliliaAzucena APRN ENTERTAINMENT MANAGER Unavailable Un available Chucho Santizo MD Unavailable [phone] AnaliliaAzucena APRN ENTERTAINMENT MANAGER Unavailable Un available Clinic - [facility] Unavailabl e Encounter Details Date Type Department Care Team (Late st Contact Info) Description 08/15/2021 [facility] Weight Management Clinic [place] [address] [facility] 4th [place] [address], RN 420 [facility] 195 [place], [place] [address] Social History Tobacco Use Types Packs/Day Years [...] Choose not to disclose 2021 4:07 PM DIRECTOR OF CLINICAL SERVICES COVID-19 Exposure Response Date Recorded In the last month, have you been in contact with someone who was confirmed or suspected to have Coronavirus / COVID-19? No / Unsure 08/04/2021 8:33 AM DIRECTOR OF CLINICAL SERVICES documented as of this encounter Plan of Treatment Upcoming Encounters Date Type Department Care Team (Late st Contact Info) Description 02/19/2024 8:00 AM CDT Appointment [facility] [address] [phone] Kenan Black MD Vascular, Vein, and Wound [address] [place] [address] [address] [address] 03/27/2024 8:30 AM CDT Office Visit [facility] Physical Medicine and Rehabilitation [facility] [place] [address] [facility], [address] [place] [phone] Chucho Santizo MD [address] [place] [phone] documented as of this encounter Visit Diagnoses Not on filedocumented in this encounter Additional Health Concerns Assessment Noted Time PHQ-9 Depression Total Score: 2 06/30/20 21 7:02 AM DIRECTOR OF CLINICAL SERVICES documented as of this encounter Care Teams Traveler Changer Relationship Specialty Start Date End Date Ben Cadena PCP - General Family Practice 09/04/19 Angel Mccormick MD Family Practice 09/04/19 Chucho Clement MD [address] [place] [address] [address] [place] [address] Orthopedics 09/04/19 Darion So MD [address] [place], [place] [address] [phone] Nephrology 12/09/20 Carolina Flanagan PA-C 420 [facility] 195 [place] [address] Assigned Surgical Provider 01/16/21 08/20/21 Robert Boggs, PhD LP 420 [facility] 741 [place] [address] Assigned Behavioral Health Provider 07/10/21 02/23/23 Milla Ramsay PA-C [facility], SURGERY 909 [facility] [address]TH [place] [address] Assigned Gastroenterology Provider 08/21/21 09/24/21 Regis Lyons MD 420 [facility] 195 [place] [address] Assigned Surgical Provider 08/21/21 02/02/23 Gutierrez Guthrie DO [address], [place] 200 [place] [address] Orthopaedic Surgery Foot and Ankle Surgery 02/05/23 Erick Lagunas MD [address] [place] [address] [facility] 300 [place] [address] Assigned Infectious Disease Provider 02/10/23 Azucena Billingsley APRN ENTERTAINMENT MANAGER Assigned Pain Medication Provider 06/16/23 08/15/23 Azucena Billingsley APRN ENTERTAINMENT MANAGER Assigned PCP 05/09/23 09/13/23 Azucena Billingsley APRN ENTERTAINMENT MANAGER Assigned PCP 10/13/23 11/12/23 Chucho Santizo MD 909 [place] [address] Assigned Neuroscience Provider 10/05/23 Azucena Billingsley APRN ENTERTAINMENT MANAGER Assigned PCP 09/14/23 10/12/23 [facility] [address] [place] [address] Assigned PCP 11/13/23 documented as of this encounter
--- OUTSIDE RECORDS SUMMARY | 2024-02-09 04:42 | XMS_ITS | Encounter Summary ---
Author Organization [place] Address [address] [place] [address] Care Team Providers Care Gripper Attacher Name Role Phone Ben Cadena Primary Care Provider [phone] Angel Mccormick MD Unavailable +[phone] Chucho Clement MD Unavailable +[phone] Darion So MD Unavailable +[phone] Carolina Flanagan PA-C Unavailable + [phone] Robert Boggs PhD LP Unavailable +[phone] Milla Ramsay PA-C Unavailable +[phone] Regis Lyons MD Unavailable +[phone] Gutierrez Guthrie DO Unavailable + [phone] Erick Lagunas MD Unavailable +[phone] AnaliliaAzucena APRN FIREPOT OPERATOR AND TENDER Unavailable Un available AnaliliaAzucena APRN FIREPOT OPERATOR AND TENDER Unavailable Un available AnaliliaAzucnea APRN FIREPOT OPERATOR AND TENDER Unavailable Un available Chucho Santizo MD Unavailable +[phone] AnaliliaAzucena APRN FIREPOT OPERATOR AND TENDER Unavailable Un available Clinic - [facility] Unavailabl e Encounter Details Date Type Department Care Team (Late st Contact Info) Description 05/12/2021 [facility] [place] [address] [facility] 4th [place] [address], RN 420 [facility] 195 [place] [address] Social History Tobacco Use Types Packs/Day Years [...] Choose not to disclose 2021 4:07 PM AIR COMPRESSOR MECHANIC documented as of this encounter Plan of Treatment Upcoming Encounters Date Type Department Care Team (Late st Contact Info) Description 02/19/2024 8:00 AM CDT Appointment [facility] [address] [phone] Kenan Black MD Vascular, Vein, and Wound [address] [place] [address] 03/27/2024 8:30 AM CDT Office Visit [facility] [place] [address] [facility], [address] [place] [phone] Chucho Santizo MD [address] [place] [address] documented as of this encounter Visit Diagnoses Not on filedocumented in this encounter Additional Health Concerns Assessment Noted Time PHQ-9 Depression Total Score: 5 01/07/20 8:18 AM CDT documented as of this encounter Care Teams Gripper Attacher Relationship Specialty Start Date End Date Ben Cadena Mango PCP - General Family Practice 09/04/19 Angel Mccormick MD Family Practice 09/04/19 Chucho Clement MD [address] [facility] [address] [place] [address] Orthopedics 09/04/19 Darion So MD [address] [place] [phone] Nephrology 12/09/20 Carolina Flanagan PA-C [address] [facility] 195 [place] [address] Assigned Surgical Provider 01/16/21 08/20/21 Robert Boggs, PhD LP [address] [facility] [place] [facility] 741 [place] [address] Assigned Behavioral Health Provider 07/10/21 02/23/23 Milla Ramsay PA-C [facility], SURGERY [address] [facility] [address] [place], [place] [address] Assigned Gastroenterology Provider 08/21/21 09/24/21 Regis Lyons MD [address] [place] [address] [facility] 195 [place], [place] [address] Assigned Surgical Provider 08/21/21 02/02/23 Gutierrez Guthrie DO [address], [facility] 200 [place] [address] Orthopaedic Surgery Foot and Ankle Surgery 02/05/23 Erick Lagunas MD [address] [place] [address] [facility] 300 [place] [address] Assigned Infectious Disease Provider 02/10/23 Azucena Billingsley APRN FIREPOT OPERATOR AND TENDER Assigned Pain Medication Provider 06/16/23 08/15/23 Azucena Billingsley APRN FIREPOT OPERATOR AND TENDER Assigned PCP 05/09/23 09/13/23 Azucena Billingsley APRN FIREPOT OPERATOR AND TENDER Assigned PCP 10/13/23 11/12/23 Chucho Santizo MD [address] [place] [address] Assigned Neuroscience Provider 10/05/23 Azucena Billingsley APRN FIREPOT OPERATOR AND TENDER Assigned PCP 09/14/23 10/12/23 [facility] [address] [place] [address] Assigned PCP 11/13/23 documented as of this encounter
--- OUTSIDE RECORDS SUMMARY | 2024-02-09 04:42 | XMS_ITS | Encounter Summary ---
Author Organization [place] Address [address] [place] [address] Care Team Providers Care Ramp Jockey Name Role Phone Ben Cadena Primary Care Provider [phone] Angel Mccormick MD Unavailable +[phone] Chucho Clement MD Unavailable +[phone] Darion So MD Unavailable +[phone] Carolina Flanagan PA-C Unavailable + [phone] Robert Boggs PhD LP Unavailable +[phone] Milla Ramsay PA-C Unavailable +[phone] Regis Lyons MD Unavailable +[phone] Gutierrez Guthrie DO Unavailable + [phone] Erick Lagunas MD Unavailable +[phone] AnaliliaAzucena APRN HEEL CEMENTER Unavailable Un available AnaliliaAzucena APRN HEEL CEMENTER Unavailable Un available AnaliliaAzucena APRN HEEL CEMENTER Unavailable Un available Chucho Santizo MD Unavailable [phone] AnaliliaAzucena APRN HEEL CEMENTER Unavailable Un available Clinic - [facility] Unavailabl e Encounter Details Date Type Department Care Team (Late st Contact Info) Description 07/25/2021 [facility] Management Clinic [place] [id number] [facility] 4th [place] [address], RN 420 [facility] 195 [place] [address] Social History Tobacco Use Types Packs/Day Years [...] Choose not to disclose 2021 4:07 PM PAINTER BARREL documented as of this encounter Plan of Treatment Upcoming Encounters Date Type Department Care Team (Late st Contact Info) Description 02/19/2024 8:00 AM CDT Appointment [facility] W[facility] Clinic [address] [phone] Kenan Black MD Vascular, Vein, and Wound [address] [place] [address] 03/27/2024 8:30 AM CDT Office Visit [facility] Physical Medicine and Rehabilitation Clinic [place] [address] [facility], [address] [place] [phone] Chucho Santizo MD [address] [place] [address] documented as of this encounter Visit Diagnoses Not on filedocumented in this encounter Additional Health Concerns Assessment Noted Time PHQ-9 Depression Total Score: 2 06/30/20 7:02 AM PAINTER BARREL documented as of this encounter Care Teams Ramp Jockey Relationship Specialty Start Date End Date Ben Cadena Mango PCP - General Family Practice 09/04/19 Angel Mccormick MD Family Practice 09/04/19 Chucho Clement MD [address] [facility] [address] [place] [address] Orthopedics 09/04/19 Darion So MD [address] [place] [phone] Nephrology 12/09/20 Carolina Flanagan PA-C [address] [facility] [address] [facility] 195 [place] [address] Assigned Surgical Provider 01/16/21 08/20/21 Robert Boggs, PhD LP [address] [place] [address] [facility] 741 [place] [address] Assigned Behavioral Health Provider 07/10/21 02/23/23 Milla Ramsay PA-C [facility], SURGERY 9[address] [facility] [address] [place], [place] [address] Assigned Gastroenterology Provider 08/21/21 09/24/21 Regis Lyons MD [address] [place] [address] [facility] 195 [place], [place] [address] Assigned Surgical Provider 08/21/21 02/02/23 Gutierrez Guthrie DO [address], [facility] 200 [place] [address] Orthopaedic Surgery Foot and Ankle Surgery 02/05/23 Erick Lagunas MD [address] [facility] 300 [place] [address] Assigned Infectious Disease Provider 02/10/23 Azucena Billings[place] APRN HEEL CEMENTER Assigned Pain Medication Provider 06/16/23 08/15/23 Azucena Billings[place] APRN HEEL CEMENTER Assigned PCP 05/09/23 09/13/23 Azucena Billings[place] APRN HEEL CEMENTER Assigned PCP 10/13/23 11/12/23 Chucho Santizo MD [address] [place] [address] Assigned Neuroscience Provider 10/05/23 Azucena Billings[place] APRN HEEL CEMENTER Assigned PCP 09/14/23 10/12/23 [facility] [address] [place] [address] Assigned PCP 11/13/23 documented as of this encounter
--- OUTSIDE RECORDS SUMMARY | 2024-02-09 04:42 | XMS_ITS | Encounter Summary ---
Author Organization [place] Address [address] [place] [address] Care Team Providers Care Oyster Bed Worker Name Role Phone Ben Cadena Primary Care Provider [phone] Angel Mccormick MD Unavailable +[phone] Chucho Clement MD Unavailable +[phone] Darion So MD Unavailable +[phone] Carolina Flanagan PA-C Unavailable + [phone] Robert Boggs PhD LP Unavailable +[phone] Milla Ramsay PA-C Unavailable +[phone] Regis Lyons MD Unavailable +[phone] Gutierrez Guthrie DO Unavailable + [phone] Erick Lagunas MD Unavailable AnaliliaAzucena APRN DIRECTOR OF FIELD SERVICE Unavailable Un available AnaliliaAzucena APRN DIRECTOR OF FIELD SERVICE Unavailable Un available AnaliliaAzucena APRN DIRECTOR OF FIELD SERVICE Unavailable Un available Chucho Santizo MD Unavailable [phone] AnaliliaAzucena APRN DIRECTOR OF FIELD SERVICE Unavailable Un available Clinic - [facility] Unavailabl e Encounter Details Date Type Department Care Team (Late st Contact Info) Description 07/25/2021 [facility] Weight Management Clinic [place] [address] [facility] 4th [place] [address] Lashanda Shanks NP 909 [place] [address] Social History Tobacco Use Types Packs/Day Years [...] Choose not to disclose 2021 4:07 PM JOB PLACEMENT OFFICER documented as of this encounter Miscellaneous Notes * Telephone Encounter - Niko Davis - 07/25/2021 1:53 PM CST Images from the original note were not included. Hey all, I called this pt to schedule some appointments per Theodora and I got everything but what is below. These appointments where after his surgery date. Can get get fit in? He can't make it up to the [facility].Please call pt. [phone] - Confirmed PLACEMENT OFFICER documented in this encounter Plan of Treatment Upcoming Encounters Date Type Department Care Team (Late st Contact Info) Description 02/19/2024 8:00 AM CDT Appointment [facility] [address] [place] [address] Kenan Black MD Vascular, Vein, and Wound [address] [facility] [address] [place], [place] [phone] 03/27/2024 8:30 AM CDT Office Visit [facility] Physical Medicine and Rehabilitation [address], [address] [place] [address] Chucho Santizo MD 909 [place] [address] documented as of this encounter Visit Diagnoses Not on filedocumented in this encounter Additional Health Concerns Assessment Noted Time PHQ-9 Depression Total Score: 2 06/30/20 21 7:02 AM JOB PLACEMENT OFFICER documented as of this encounter Care Teams Oyster Bed Worker Relationship Specialty Start Date End Date Ben Cadena PCP - General Family Practice 09/04/19 Angel Mccormick MD Family Practice 09/04/19 Chucho Clement MD [facility] [address] [place] [address] Orthopedics 09/04/19 Darion So MD [address] [place] [address] Nephrology 12/09/20 Carolina Flanagan PA-C 420 [facility] 195 [place], [place] [address] Assigned Surgical Provider 01/16/21 08/20/21 Robert Boggs, PhD LP 420 [facility] 741 [place] [address] Assigned Behavioral Health Provider 07/10/21 02/23/23 Milla Ramsay PA-C [facility], SURGERY 909 [facility] 4TH [place] [address] Assigned Gastroenterology Provider 08/21/21 09/24/21 Regis Lyons MD [address] [facility] [address] [place] [address] Assigned Surgical Provider 08/21/21 02/02/23 Gutierrez Guthrie DO [facility] Vicente Mckay, [facility] 200 [place], [place] [address] Orthopaedic Surgery Foot and Ankle Surgery 02/05/23 Erick Lagunas MD [facility] Momo Todd [facility] 300 [place] [address] Assigned Infectious Disease Provider 02/10/23 Azucena Billings[place] APRN DIRECTOR OF FIELD SERVICE Assigned Pain Medication Provider 06/16/23 08/15/23 Azucena Billings[place] APRN DIRECTOR OF FIELD SERVICE Assigned PCP 05/09/23 09/13/23 Azucena Billings[place] APRN DIRECTOR OF FIELD SERVICE Assigned PCP 10/13/23 11/12/23 Chucho Santizo MD [address] [place] [address] Assigned Neuroscience Provider 10/05/23 Azucena Billings[place] APRN DIRECTOR OF FIELD SERVICE Assigned PCP 09/14/23 10/12/23 [facility] [address] [place] [address] Assigned PCP 11/13/23 documented as of this encounter
--- OUTSIDE RECORDS SUMMARY | 2024-02-09 04:42 | XMS_ITS | Encounter Summary ---
Author Organization [place] Address [address] [place] [address] Care Team Providers Care Supervisor Hand Silvering Name Role Phone Ben Cadena Primary Care Provider [phone] nAgel Mccormick MD Unavailable +[phone] Chucho Clement MD Unavailable +[phone] Darion So MD Unavailable [phone] Carolina Flanagan PA-C Unavailable + [phone] Robert Boggs PhD LP Unavailable +[phone] Milla Ramsay PA-C Unavailable +[phone] Regis Lyons MD Unavailable +[phone] Gutierrez Guthrie DO Unavailable + [phone] Erick Lagunas MD Unavailable +[phone] AnaliliaAzucena APRN METAL FABRICATING INSPECTOR Unavailable Un available AnaliliaAzucena APRN METAL FABRICATING INSPECTOR Unavailable Un available AnaliliaAzucena APRN METAL FABRICATING INSPECTOR Unavailable Un available Chucho Santizo MD Unavailable [phone] AnaliliaAzucena APRN METAL FABRICATING INSPECTOR Unavailable Un available Clinic - [facility] Unavailabl e Encounter Details Date Type Department Care Team (Late st Contact Info) Description 08/08/2021 [facility] Weight Management Clinic [place] [address] [facility] 4th [place] [address] Regis Lyons MD 420 [facility] 195 [place] [address] Social History Tobacco Use Types Packs/Day Years [...] Choose not to disclose 2021 4:07 PM STERILIZATION SPECIALIST COVID-19 Exposure Response Date Recorded In the last month, have you been in contact with someone who was confirmed or suspected to have Coronavirus / COVID-19? No / Unsure 08/04/2021 8:33 AM STERILIZATION SPECIALIST documented as of this encounter Miscellaneous Notes * Telephone Encounter - Niko Davis - 08/08/2021 3:41 PM CST Pt called and stated that he got a message about missing his appointment last the however, he didn't miss that as he stated he talked with Dr. Lyons. Please call pt with any questions [phone] ILIZATION SPECIALIST documented in this encounter Plan of Treatment Upcoming Encounters Date Type Department Care Team (Late st Contact Info) Description 02/19/2024 8:00 AM CDT Appointment [facility] Wound Clinic [place] [address] [place] [address] Kenan Black MD Vascular, Vein, and Wound [address] [facility] [address] [place] [address] 03/27/2024 8:30 AM CDT Office Visit [facility] Physical Medicine and Rehabilitation Clinic [place] [address] [facility], [address] [place] [phone] Chucho Santizo MD 909 [place], [place] [address] documented as of this encounter Visit Diagnoses Not on filedocumented in this encounter Additional Health Concerns Assessment Noted Time PHQ-9 Depression Total Score: 2 06/30/20 21 7:02 AM STERILIZATION SPECIALIST documented as of this encounter Care Teams Supervisor Hand Silvering Relationship Specialty Start Date End Date Ben Cadena PCP - General Family Practice 09/04/19 Angel Mccormick MD Family Practice 09/04/19 Chucho Clement MD [address] [place] [address] [address] [place] [address] Orthopedics 09/04/19 Darion So MD [address] [place] [phone] Nephrology 12/09/20 Carolina Flanagan PA-C [address] [place] [address] 195 [place] [address] Assigned Surgical Provider 01/16/21 08/20/21 Robert Boggs, PhD LP [address] [place] [address] 741 [place] [address] Assigned Behavioral Health Provider 07/10/21 02/23/23 Milla Ramsay PA-C [facility] 909 [facility] 4TH [place] [address] Assigned Gastroenterology Provider 08/21/21 09/24/21 Regis Lyons MD [address] [place] [address] 195 [place] [address] Assigned Surgical Provider 08/21/21 02/02/23 Gutierrez Guthrie DO [address], [address] [address] Orthopaedic Surgery Foot and Ankle Surgery 02/05/23 Erick Lagunas MD [address] [place] [address] 300 [place] [address] Assigned Infectious Disease Provider 02/10/23 Azucena Billingsley APRN METAL FABRICATING INSPECTOR Assigned Pain Medication Provider 06/16/23 08/15/23 Azucena Billingsley APRN METAL FABRICATING INSPECTOR Assigned PCP 05/09/23 09/13/23 Azucena Billingsley APRN METAL FABRICATING INSPECTOR Assigned PCP 10/13/23 11/12/23 Chucho Santizo MD [address] [place] [address] Assigned Neuroscience Provider 10/05/23 Azucena Billingsley APRN METAL FABRICATING INSPECTOR Assigned PCP 09/14/23 10/12/23 [facility] [address] [place] [address] Assigned PCP 11/13/23 documented as of this encounter
--- OUTSIDE RECORDS SUMMARY | 2024-02-09 04:42 | XMS_ITS | Encounter Summary ---
Author Organization [place] Address [address] [place] [address] Care Team Providers Care Coining Press Operator Name Role Phone Ben Cadena Primary Care Provider [phone] Angel Mccormick MD Unavailable +[phone] Chucho lCement MD Unavailable +[phone] Darion So MD Unavailable [phone] Robert Boggs PhD LP Unavailable +[phone] Milla Ramsay PA-C Unavailable +[phone] Regis Lyons MD Unavailable +[phone] Gutierrez Guthrie DO Unavailable + [phone] Erick Lagunas MD Unavailable +[phone] NaaliliaAzucena APRN DRUM STRAIGHTENER Unavailable Un available AnaliliaAzucena APRN DRUM STRAIGHTENER Unavailable Un available AnaliliaAzucena APRN DRUM STRAIGHTENER Unavailable Un available Chucho Santizo MD Unavailable [phone] AnaliliaAzucena APRN DRUM STRAIGHTENER Unavailable Un available Clinic - [facility] Unavailabl e Encounter Details Date Type Department Care Team (Late st Contact Info) Description 08/23/2021 [facility] Weight Management Clinic [place] [address] [facility] [address] 4th [place] [address] Aishwarya Young, RN Social History Tobacco Use Types Packs/Day [...] Choose not to disclose 2021 4:07 PM CLASS A LINEMAN COVID-19 Exposure Response Date Recorded In the last month, have you been in contact with someone who was confirmed or suspected to have Coronavirus / COVID-19? No / Unsure 08/04/2021 8:33 AM CLASS A LINEMAN documented as of this encounter Plan of Treatment Upcoming Encounters Date Type Department Care Team (Late st Contact Info) Description 02/19/2024 8:00 AM CDT Appointment [facility] W[facility] Clinic [address] [phone] Kenan Black MD Vascular, Vein, and Wound [address] [place] [address] 03/27/2024 8:30 AM CDT Office Visit [facility] Physical Medicine and Rehabilitation Clinic [place] [address] [facility], [address] [place] [address] Chucho Santizo MD [address] [place] [address] documented as of this encounter Visit Diagnoses Not on filedocumented in this encounter Additional Health Concerns Assessment Noted Time PHQ-9 Depression Total Score: 2 06/30/20 21 7:02 AM CLASS A LINEMAN documented as of this encounter Care Teams Coining Press Operator Relationship Specialty Start Date End Date CadenaBen PCP - General Family Practice 09/04/19 Angel Mccormick MD Family Practice 09/04/19 Chucho Clement MD [facility] [address] [place] [address] Orthopedics 09/04/19 Darion So MD [address] [facility] [place] [place] [address] Nephrology 12/09/20 Robert Boggs, PhD LP [address] [facility] 741 [place] [address] Assigned Behavioral Health Provider 07/10/21 02/23/23 Milla Ramsay PA-C [facility], SURGERY 909 [facility] [address] [place] [address] Assigned Gastroenterology Provider 08/21/21 09/24/21 Regis Lyons MD [address] [facility] 195 [place] [address] Assigned Surgical Provider 08/21/21 02/02/23 Gutierrez Guthrie DO [address], [address] [address] Orthopaedic Surgery Foot and Ankle Surgery 02/05/23 Erick Lagunas MD [address] [facility] 300 [place] [address] Assigned Infectious Disease Provider 02/10/23 Azucena Billingsley APRN DRUM STRAIGHTENER Assigned Pain Medication Provider 06/16/23 08/15/23 Azucena Billingsley APRN DRUM STRAIGHTENER Assigned PCP 05/09/23 09/13/23 Azucena Billingsley APRN DRUM STRAIGHTENER Assigned PCP 10/13/23 11/12/23 Chucho Santizo MD 909 [place] [address] Assigned Neuroscience Provider 10/05/23 Azucena Billingsley APRN DRUM STRAIGHTENER Assigned PCP 09/14/23 10/12/23 [facility] [address] [place] [address] Assigned PCP 11/13/23 documented as of this encounter
--- OUTSIDE RECORDS SUMMARY | 2024-02-09 04:42 | XMS_ITS | Encounter Summary ---
Author Organization [place] Address [address] [place] [address] Care Team Providers Care Pack Changer Name Role Phone Ben Cadena Primary Care Provider [phone] Angel Mccormick MD Unavailable +[phone] Chucho Clement MD Unavailable +[phone] Darion So MD Unavailable +[phone] Carolina Flanagan PA-C Unavailable + [phone] Robert Boggs PhD LP Unavailable +[phone] Milla Ramsay PA-C Unavailable +[phone] Regis Lyons MD Unavailable +[phone] Gutierrez Guthrie DO Unavailable + [phone] Erick Lagunas MD Unavailable [phone] AnaliliaAzucena APRN FRONT END DEVELOPER DESIGNER Unavailable Un available AnaliliaAzucena APRN FRONT END DEVELOPER DESIGNER Unavailable Un available AnaliliaAzucena APRN FRONT END DEVELOPER DESIGNER Unavailable Un available Chucho Santizo MD Unavailable [phone] AnaliliaAzucena APRN FRONT END DEVELOPER DESIGNER Unavailable Un available Clinic - [facility] Unavailabl e Encounter Details Date Type Department Care Team (Late st Contact Info) Description 08/04/2021 [facility] [address] 4th [place] [address] [facility] Social History Tobacco Use Types Packs/Day [...] Choose not to disclose 2021 4:07 PM BAKER BISCUIT COVID-19 Exposure Response Date Recorded In the last month, have you been in contact with someone who was confirmed or suspected to have Coronavirus / COVID-19? No / Unsure 08/04/2021 8:33 AM BAKER BISCUIT documented as of this encounter Plan of Treatment Upcoming Encounters Date Type Department Care Team (Late st Contact Info) Description 02/19/2024 8:00 AM CDT Appointment [facility] [address] [phone] Kenan Black MD Vascular, Vein, and Wound [address] [place] [address] 03/27/2024 8:30 AM CDT Office Visit [facility] [place] [address] [facility], [address] [place] [address] Chucho Santizo MD [address] [place] [address] documented as of this encounter Visit Diagnoses Not on filedocumented in this encounter Additional Health Concerns Assessment Noted Time PHQ-9 Depression Total Score: 2 06/30/20 21 7:02 AM BAKER BISCUIT documented as of this encounter Care Teams Pack Changer Relationship Specialty Start Date End Date Ben Cadena PCP - General Family Practice 09/04/19 Angel Mccormick MD Family Practice 09/04/19 Chucho Clement MD [address] [place], [place] [address] Orthopedics 09/04/19 Darion So MD [address] [place] [phone] Nephrology 12/09/20 Carolina Flanagan PA-C [address] [facility] 195 [place], [place] [address] Assigned Surgical Provider 01/16/21 08/20/21 Robert Boggs, PhD LP [address] [facility] 741 [place], [place] [address]255 Assigned Behavioral Health Provider 07/10/21 02/23/23 Milla Ramsay PA-C [facility], SURGERY [address] [facility] [address] [place], [place] [address] Assigned Gastroenterology Provider 08/21/21 09/24/21 Regis Lyons MD [address] [facility] 195 [place], [place] [address] Assigned Surgical Provider 08/21/21 02/02/23 Gutierrez Guthrie DO [address], [facility] 200 [place] [address] Orthopaedic Surgery Foot and Ankle Surgery 02/05/23 Erick Lagunas MD [address] [facility] 300 [place] [address] Assigned Infectious Disease Provider 02/10/23 Azucena Billingsley APRN FRONT END DEVELOPER DESIGNER Assigned Pain Medication Provider 06/16/23 08/15/23 Azucena Billingsley APRN FRONT END DEVELOPER DESIGNER Assigned PCP 05/09/23 09/13/23 Azucena Billingsley APRN FRONT END DEVELOPER DESIGNER Assigned PCP 10/13/23 11/12/23 Chucho Santizo MD [address] [place] [address] Assigned Neuroscience Provider 10/05/23 Azucena Billingsley APRN FRONT END DEVELOPER DESIGNER Assigned PCP 09/14/23 10/12/23 [facility] [address] [place] [address] Assigned PCP 11/13/23 documented as of this encounter
--- OUTSIDE RECORDS SUMMARY | 2024-02-09 04:42 | XMS_ITS | Encounter Summary ---
Author Organization [place] Address [address] [place] [address] Care Team Providers Care Adjunct Faculty For Medical Terminology Name Role Phone Ben Cadena Primary Care Provider [phone] Angel Mccormick MD Unavailable +[phone] Chucho Clement MD Unavailable +[phone] Darion So MD Unavailable [phone] Robert Boggs PhD LP Unavailable +[phone] Milla Ramsay PA-C Unavailable +[phone] Regis Lyons MD Unavailable +[phone] Gutierrez Guthrie DO Unavailable + [phone] Erick Lagunas MD Unavailable +[phone] AnaliliaAzucena APRN CLUTCH REBUILDER Unavailable Un available AnaliliaAzucena APRN CLUTCH REBUILDER Unavailable Un available AnaliliaAzucena APRN CLUTCH REBUILDER Unavailable Un available Chucho Santizo MD Unavailable [phone] AnaliliaAzucena APRN CLUTCH REBUILDER Unavailable Un available Clinic - [facility] Unavailabl e Encounter Details Date Type Department Care Team (Late st Contact Info) Description 08/23/2021 [facility] [place] [id number] [facility] [address] 4th [place] [address] Aishwarya Young, RN Social History [...] Choose not to disclose 2021 4:07 PM SCAFFOLD WORKER COVID-19 Exposure Response Date Recorded In the last month, have you been in contact with someone who was confirmed or suspected to have Coronavirus / COVID-19? No / Unsure 08/04/2021 8:33 AM SCAFFOLD WORKER documented as of this encounter Plan of Treatment Upcoming Encounters Date Type Department Care Team (Late st Contact Info) Description 02/19/2024 8:00 AM CDT Appointment [facility] [address] [phone] Kenan Black MD Vascular, Vein, and Wound [address] [place] [address] 03/27/2024 8:30 AM CDT Office Visit [facility] [place] [address] [facility], [address] [place] [phone] Chucho Santizo MD [address] [place] [address] documented as of this encounter Visit Diagnoses Not on filedocumented in this encounter Additional Health Concerns Assessment Noted Time PHQ-9 Depression Total Score: 2 06/30/20 21 7:02 AM SCAFFOLD WORKER documented as of this encounter Care Teams Adjunct Faculty For Medical Terminology Relationship Specialty Start Date End Date CadenaBen PCP - General Family Practice 09/04/19 Angel Mccormick MD Family Practice 09/04/19 Chucho Clement MD [facility] [address] [place] [address] Orthopedics 09/04/19 Darion So MD [address] [facility] [place] [phone] Nephrology 12/09/20 Robert Boggs, PhD LP 420 [facility] 741 [place] [address] Assigned Behavioral Health Provider 07/10/21 02/23/23 Milla Ramsay PA-C [facility], SURGERY [address] [facility] [address] [place] [address] Assigned Gastroenterology Provider 08/21/21 09/24/21 Rgeis Lyons MD 420 [facility] 195 [place] [address] Assigned Surgical Provider 08/21/21 02/02/23 Gutierrez Guthrie DO [address], [address] [address] Orthopaedic Surgery Foot and Ankle Surgery 02/05/23 Erick Lagunas MD [address] [facility] 300 [place] [address] Assigned Infectious Disease Provider 02/10/23 Azucena Billingsley APRN CLUTCH REBUILDER Assigned Pain Medication Provider 06/16/23 08/15/23 Azucena Billingsley APRN CLUTCH REBUILDER Assigned PCP 05/09/23 09/13/23 Azucena Billingsley APRN CLUTCH REBUILDER Assigned PCP 10/13/23 11/12/23 Chucho Santizo MD 909 [place] [address] Assigned Neuroscience Provider 10/05/23 Azucena Billingsley APRN CLUTCH REBUILDER Assigned PCP 09/14/23 10/12/23 [facility] [address] [place] [address] Assigned PCP 11/13/23 documented as of this encounter
--- OUTSIDE RECORDS SUMMARY | 2024-02-09 04:42 | XMS_ITS | Encounter Summary ---
Author Organization [place] Address [address] [place] [address] Care Team Providers Care Insole Filler Name Role Phone Ben Cadena Primary Care Provider [phone] Angel Mccormick MD Unavailable [phone] Chucho Clement MD Unavailable +[phone] Darion So MD Unavailable [phone] Carolina Flanagan PA-C Unavailable + [phone] Robert Boggs PhD LP Unavailable +[phone] Milla Ramsay PA-C Unavailable +[phone] Regis Lyons MD Unavailable +[phone] Gutierrez Guthrie DO Unavailable + [phone] Erick Lagunas MD Unavailable +[phone] AnaliliaAzucena APRN STEEL UNLOADER Unavailable Un available AnaliliaAzucena APRN STEEL UNLOADER Unavailable Un available AnaliliaAzucena chilel APRN STEEL UNLOADER Unavailable Un available Chucho Santizo MD Unavailable [phone] AnaliliaAzucena APRN STEEL UNLOADER Unavailable Un available Clinic - [facility] Unavailabl e Encounter Details Date Type Department Care Team (Late st Contact Info) Description 07/29/2021 Documentation Only INTERFACED REPORT Unknown, Provider Social History Tobacco Use Types Packs/Day Years [...] Choose not to disclose 2021 4:07 PM BANQUET SERVER documented as of this encounter Plan of Treatment Upcoming Encounters Date Type Department Care Team (Late st Contact Info) Description 02/19/2024 8:00 AM CDT Appointment [facility] [address] [phone] Kenan Black MD Vascular, Vein, and Wound [address] [place] [address] 03/27/2024 8:30 AM CDT Office Visit [facility] [place] [address] [facility], [address] [place] [phone] Chucho Santizo MD [address] [place] [address] documented as of this encounter Visit Diagnoses Not on filedocumented in this encounter Additional Health Concerns Assessment Noted Time PHQ-9 Depression Total Score: 2 06/30/20 21 7:02 AM BANQUET SERVER documented as of this encounter Care Teams Insole Filler Relationship Specialty Start Date End Date Ben Cadena PCP - General Family Practice 09/04/19 Angel Mccormick MD Family Practice 09/04/19 Chucho Clement MD [address] [place] [address] Orthopedics 09/04/19 Darion So MD [address] [place] [phone] Nephrology 12/09/20 Carolina Flanaagn PA-C 420 [facility] 195 [place] [address] Assigned Surgical Provider 01/16/21 08/20/21 Robert Boggs, PhD LP 420 [facility] 741 [place] [address] Assigned Behavioral Health Provider 07/10/21 02/23/23 Milla Ramsay PA-C [facility], SURGERY [address] [facility] [address] [place] [address] Assigned Gastroenterology Provider 08/21/21 09/24/21 Regis Lyons MD 420 [facility] 195 [place], [place] [address] Assigned Surgical Provider 08/21/21 02/02/23 Gutierrez Guthrie DO [address], [address] [address] Orthopaedic Surgery Foot and Ankle Surgery 02/05/23 Erick Lagunas MD [address] [facility] 300 [place] [address] Assigned Infectious Disease Provider 02/10/23 Azucena Billingsley APRN STEEL UNLOADER Assigned Pain Medication Provider 06/16/23 08/15/23 Azucena Billingsley APRN STEEL UNLOADER Assigned PCP 05/09/23 09/13/23 Azucena Billingsley APRN STEEL UNLOADER Assigned PCP 10/13/23 11/12/23 Chucho Santizo MD [address] [place] [address] Assigned Neuroscience Provider 10/05/23 Azucena Billingsley APRN STEEL UNLOADER Assigned PCP 09/14/23 10/12/23 [facility] [address] [place] [address] Assigned PCP 11/13/23 documented as of this encounter
--- OUTSIDE RECORDS SUMMARY | 2024-02-09 04:43 | XMS_ITS | Encounter Summary ---
Author Organization [place] Address [address] [place] [address] Care Team Providers Care Organ Assembler Name Role Phone Ben Cadena Primary Care Provider [phone] Angel Mccormick MD Unavailable +[phone] Chucho Clement MD Unavailable +[phone] Chucho Clement MD Unavailable +[phone] Darion So MD Unavailable +[phone] Carolina Flanagan PA-C Unavailable + [phone] Robert Boggs PhD LP Unavailable +[phone] Milla Ramsay PA-C Unavailable +[phone] Regis Lyons MD Unavailable +[phone] Gutierrez Guthrie DO Unavailable + [phone] Erick Lagunas MD Unavailable +[phone] AnaliliaAzucena APRN HEEL PRICKER Unavailable Un available AnaliliaAzucena APRN HEEL PRICKER Unavailable Un available AnaliliaAzucena APRN HEEL PRICKER Unavailable Un available Chucho Santizo MD Unavailable +[phone] AnaliliaAzucena chilel APRN HEEL PRICKER Unavailable Un available Clinic - [facility] Unavailabl e Encounter Details Date Type Department Care Team (Late st Contact Info) Description 02/07/2021 [facility] [address] 4th [place] [phone] [facility] Social History Tobacco Use Types Packs/Day [...] Choose not to disclose 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 Wound Clinic [address] [phone] Kenan Black MD Vascular, Vein, and Wound [address] [place] [address] 03/27/2024 8:30 AM CDT Office Visit [facility] Medicine [facility] Rehabilitation [facility] [place] [address] [facility], [address] [place] [address] Chucho Santizo MD [address] [place] [address] documented as of this encounter Visit Diagnoses Not on filedocumented in this encounter Additional Health Concerns Assessment Noted Time PHQ-9 Depression Total Score: 5 01/07/20 21 8:18 AM CDT documented as of this encounter Care Teams Organ Assembler Relationship Specialty Start Date End Date Ben Cadena PCP - General Family Practice 09/04/19 Angel Mccormick MD Family Practice 09/04/19 Chucho Clement MD [address] [place] [address] Orthopedics 09/04/19 Chucho Clement MD [address] [place] [address] Assigned Musculoskeletal Provider 05/14/20 03/19/21 Darion So MD [address] [place] [phone] Nephrology 12/09/20 Carolina Flanagan PA-C [address] [place] [address] 195 [place] [address] Assigned Surgical Provider 01/16/21 08/20/21 Robert Boggs, PhD LP [address] [place] [address] 741 [place] [address] Assigned Behavioral Health Provider 07/10/21 02/23/23 Milla Ramsay PA-C [facility], SURGERY 909 [facility] 4TH [place] [address] Assigned Gastroenterology Provider 08/21/21 09/24/21 Regis Lyons MD 420 [facility] 195 [place] [address] Assigned Surgical Provider 08/21/21 02/02/23 Gutierrez Guthrie DO [address], [place] 200 [place] [address] Orthopaedic Surgery Foot and Ankle Surgery 02/05/23 Erick Lagunas MD [address] [place] 300 [place] [address] Assigned Infectious Disease Provider 02/10/23 Azucena Billingsley APRN HEEL PRICKER Assigned Pain Medication Provider 06/16/23 08/15/23 Azucena Billingsley APRN HEEL PRICKER Assigned PCP 05/09/23 09/13/23 Azucena Billingsley APRN HEEL PRICKER Assigned PCP 10/13/23 11/12/23 Chucho Santizo MD 909 [place] [address] Assigned Neuroscience Provider 10/05/23 Azucena Billingsley APRN HEEL PRICKER Assigned PCP 09/14/23 10/12/23 [facility] [address] [place] [address] Assigned PCP 11/13/23 documented as of this encounter
--- OUTSIDE RECORDS SUMMARY | 2024-02-09 04:43 | XMS_ITS | Encounter Summary ---
Author Organization [place] Address [address] [place] [address] Care Team Providers Care Patent Counsel Name Role Phone Ben Cadena Primary Care Provider [phone] Angel Mccormick MD Unavailable +[phone] Chucho Clement MD Unavailable +[phone] Chucho Clement MD Unavailable +[phone] Darion So MD Unavailable +[phone] Carolina Flanagan PA-C Unavailable + [phone] uGanaco Michael MD Unavailable +[phone] Regis Lyons MD Unavailable +[phone] Carolina Flanagan PA-C Unavailable +[phone] Robert Boggs PhD LP Unavailable +[phone] Milla Ramsay PA-C Unavailable +[phone] Regis Lyons MD Unavailable +[phone] Gutierrez Guthrie DO Unavailable + [phone] Erick Lagunas MD Unavailable +[phone] AnaliliaAzucena APRN PLUMBING ASSEMBLER INSTALLER Unavailable Un available Analilia, Azucena Veras APRN PLUMBING ASSEMBLER INSTALLER Unavailable Un available Analilia, Azucena Veras APRN PLUMBING ASSEMBLER INSTALLER Unavailable Un available Chucho Santizo MD Unavailable +[phone] AnaliliaAzucena APRN PLUMBING ASSEMBLER INSTALLER Unavailable Un available Clinic - [facility] Unavailabl e Encounter Details Date Type Department Care Team (Late st Contact Info) Description 11/30/[address] [facility] General Surgery Clinic [place] 9[address] [facility] SE 4th [place] [address] Carolina Flanagan PA-C [address] [facility] 195 [place] [address] Social History Tobacco Use Types Packs/Day Years Used Date Smoking Tobacco: Former Cigarettes Smokeless Tobacco: Never Alcohol Use Standard Drinks/Week [...] PHQ-2 Answer Date Recorded PHQ-2 Score 4 09/17/2019 Sex and Gender Information Value Date Recorded Sex Assigned at Male 11/29/2020 12:43 PM CDT Gender Identity Male 11/29/2020 12:43 PM CDT Sexual Orientation Choose not to disclose 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 Discuss bariatric surgery documented in this encounter Plan of Treatment Upcoming Encounters Date Type Department Care Team (Late Contact Info) Description 02/19/2024 8:[address] [facility] W[facility] [place] [address] [place] [phone] Kenan Black MD Vascular, Vein, and Wound [address] [facility] [address] [place] [address] 03/27/2024 8:30 AM CDT Office Visit [facility] Medicine and Rehabilitation Clinic [place] [address] [facility], [address] [place] [phone] Chucho Santizo MD 909 [place] [address] documented as of this encounter Visit Diagnoses Not on filedocumented in this encounter Additional Health Concerns Assessment Noted Time PHQ-9 Depression Total Score: 7 09/18/19 20 7:04 AM SNOW GROOMER documented as of this encounter Care Teams Patent Counsel Relationship Specialty Start Date End Date Ben Cadena PCP - General Family Practice 09/04/19 Angel Mccormick MD Family Practice 09/04/19 Chucho Clement MD [address] [place] [address] Orthopedics 09/04/19 Chucho Clement MD [address] [place] [address] Assigned Musculoskeletal Provider 05/14/20 03/19/21 Darion So MD [address] [place] [phone] Nephrology 12/09/20 Carolina Flanagan PA-C 420 [facility] 195 [place] [address] Assigned Surgical Provider 12/12/20 01/08/21 Guanaco Michael MD 420 [facility] 195 [place], [place] [address] Assigned Surgical Provider 12/05/20 12/11/20 Regis Lyons MD 420 [facility] 195 [place], [place] [address] Assigned Surgical Provider 01/09/21 01/15/21 Carolina Flanagan PA-C [address] [address] Assigned Surgical Provider 01/16/21 08/20/21 Robert Boggs, PhD LP 420 [facility] 741 [place], [place] [address] Assigned Behavioral Health Provider 07/10/21 02/23/23 Milla Ramsay PA-C [facility], SURGERY 909 [facility] [address] [place] [address] Assigned Gastroenterology Provider 08/21/21 09/24/21 Regis Lyons MD 420 [facility] 195 [place], [place] [address] Assigned Surgical Provider 08/21/21 02/02/23 Gutierrez Guthrie DO [facility] Vicente Mckay, [address] [address] Orthopaedic Surgery Foot and Ankle Surgery 02/05/23 Erick Lagunas MD [address] [facility] 300 [place] [address] Assigned Infectious Disease Provider 02/10/23 Azucena Billingsley APRN PLUMBING ASSEMBLER INSTALLER Assigned Pain Medication Provider 06/16/23 08/15/23 Azucena Billingsley APRN PLUMBING ASSEMBLER INSTALLER Assigned PCP 05/09/23 09/13/23 Azucena Billingsley APRN PLUMBING ASSEMBLER INSTALLER Assigned PCP 10/13/23 11/12/23 Chucho Santizo MD [address] [place] [address] Assigned Neuroscience Provider 10/05/23 Azucena Billingsley APRN PLUMBING ASSEMBLER INSTALLER Assigned PCP 09/14/23 10/12/23 [facility] [address] [place] [address] Assigned PCP 11/13/23 documented as of this encounter
--- OUTSIDE RECORDS SUMMARY | 2024-02-09 04:43 | XMS_ITS | Encounter Summary ---
Author Organization [facility] Address [address] [place] [address] Care Team Providers Care Scaffold Worker Name Role Phone Ben Cadena Primary Care Provider [phone] Angel Mccormick MD Unavailable +[phone] Chucho Clement MD Unavailable +[phone] Chucho Clement MD Unavailable [phone] Darion So MD Unavailable +[phone] Carolina Flanagan PA-C Unavailable + [phone] Regis Lyons MD Unavailable +[phone] Carolina Flanagan PA-C Unavailable +[phone] Robert Boggs PhD LP Unavailable +[phone] Milla Ramsay PA-C Unavailable +[phone] Regis Lyons MD Unavailable +[phone] Gutierrez Guthrie DO Unavailable + [phone] Erick Lagunas MD Unavailable +[phone] AnaliliaAzucena APRN ASSEMBLER HANDBAGS Unavailable Un available Analilia, Azucena Veras APRN ASSEMBLER HANDBAGS Unavailable Un available Analilia, Azucena Veras APRN ASSEMBLER HANDBAGS Unavailable Un available Chucho Santizo MD Unavailable [phone] AnaliliaAzucena chilel APRN ASSEMBLER HANDBAGS Unavailable Un available Clinic - [facility] Unavailabl e Encounter Details Date Type Department Care Team (Late st Contact Info) Description 01/06/[address] 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 No / Unsure 01/06/2021 8:16 AM CDT documented as of this encounter Plan of Treatment Upcoming Encounters Date Type Department Care Team (Late st Contact Info) Description 02/19/2024 8:[address] [facility] [address] [place] [address] Kenan Black MD Vascular, Vein, and Wound 29[address] [facility] [address] [place], [place] [id number] 03/27/2024 8:30 AM CDT Office Visit [facility] [address], [address] [place] [address] Chucho Santizo MD 909 [place] [address] documented as of this encounter Visit Diagnoses Not on filedocumented in this encounter Additional Health Concerns Assessment Noted Time PHQ-9 Depression Total Score: 5 01/07/20 21 8:18 AM CDT documented as of this encounter Care Teams Scaffold Worker Relationship Specialty Start Date End Date Ben Cadena PCP - General Family Practice 09/04/19 Angel Mccormick MD Family Practice 09/04/19 Chucho Clement MD [address] [place] [address] Orthopedics 09/04/19 Chucho Clement MD [address] [place] [address] Assigned Musculoskeletal Provider 05/14/20 03/19/21 Darion So MD [address] [place] [address] Nephrology 12/09/20 Carolina Flanagan PA-C [address] [place] [address] 195 [place] [address] Assigned Surgical Provider 12/12/20 01/08/21 Regis Lyons MD [address] [place] [address] [facility] 195 [place] [address] Assigned Surgical Provider 01/09/21 01/15/21 Carolina Flanagan PA-C [address] [place] [address] [facility] 195 [place] [address] Assigned Surgical Provider 01/16/21 08/20/21 Robert Boggs, PhD LP 420 [facility] 741 [place] [address] Assigned Behavioral Health Provider 07/10/21 02/23/23 Milla Ramsay PA-C [facility], SURGERY 909 [facility] [address]TH [place] [address] Assigned Gastroenterology Provider 08/21/21 09/24/21 Regis Lyons MD 420 [facility] 195 [place] [address] Assigned Surgical Provider 08/21/21 02/02/23 Gutierrez Guthrie DO [address], [facility] 200 [place], [place] [phone] Orthopaedic Surgery Foot and Ankle Surgery 02/05/23 Erick Lagunas MD [address] [facility] 300 [place], [place] [address] Assigned Infectious Disease Provider 02/10/23 Azucena Billingsley APRN ASSEMBLER HANDBAGS Assigned Pain Medication Provider 06/16/23 08/15/23 Azucena Billingsley APRN ASSEMBLER HANDBAGS Assigned PCP 05/09/23 09/13/23 Azucena Billingsley APRN ASSEMBLER HANDBAGS Assigned PCP 10/13/23 11/12/23 Chucho Santizo MD [address] [place] [address] Assigned Neuroscience Provider 10/05/23 Azucena Billingsley APRN ASSEMBLER HANDBAGS Assigned PCP 09/14/23 10/12/23 [facility] [address] [place] [address] Assigned PCP 11/13/23 documented as of this encounter
--- OUTSIDE RECORDS SUMMARY | 2024-02-09 04:43 | XMS_ITS | Encounter Summary ---
Author Organization [facility] Address [address] [place] [address] Care Team Providers Care Button Breaker Name Role Phone Ben Cadena Primary Care Provider [phone] Angel Mccormick MD Unavailable +[phone] Chucho Clement MD Unavailable +[phone] Darion So MD Unavailable +[phone] Carolina Flanagan PA-C Unavailable + [phone] Robert Boggs PhD LP Unavailable +[phone] Milla Ramsay PA-C Unavailable +[phone] Regis Lyons MD Unavailable +[phone] Gutierrez Guthrie DO Unavailable + [phone] Erick Lagunas MD Unavailable [phone] AnaliliaAzucena APRN TREE WORKER Unavailable Un available AnaliliaAzucena APRN TREE WORKER Unavailable Un available AnaliliaAzucena APRN TREE WORKER Unavailable Un available Chucho Santizo MD Unavailable +[phone] AnaliliaAzucena APRN TREE WORKER Unavailable Un available Clinic - [facility] Unavailabl e Encounter Details Date Type Department Care Team (Late st Contact Info) Description 04/11/2021 [facility] [address] 4th [place] [address] [facility] Social History Tobacco Use [...] Choose not to disclose 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 documented as of this encounter Plan of Treatment Upcoming Encounters Date Type Department Care Team (Late st Contact Info) Description 02/19/2024 8:00 AM CDT Appointment [facility] [address] [address] Kenan Black MD Vascular, Vein, and Wound [address] [place] [address] 03/27/2024 8:30 AM CDT Office Visit [facility] [address], [address] [place] [address] Chucho Santizo MD [address] [place] [address] documented as of this encounter Visit Diagnoses Not on filedocumented in this encounter Additional Health Concerns Assessment Noted Time PHQ-9 Depression Total Score: 5 01/07/20 21 8:18 AM CDT documented as of this encounter Care Teams Button Breaker Relationship Specialty Start Date End Date Ben Cadena PCP - General Family Practice 09/04/19 Angel Mccormick MD Family Practice 09/04/19 Chucho Clement MD [address] [facility] [address] [place] [address] Orthopedics 09/04/19 Darion So MD [address] [place] [address] Nephrology 12/09/20 Carolina Flanagan PA-C 420 [facility] [place] 195 [place], [place] [address] Assigned Surgical Provider 01/16/21 08/20/21 Robert Boggs, PhD LP 420 [facility] [place] [address] [place], [place] 9[address] Assigned Behavioral Health Provider 07/10/21 02/23/23 Milla Ramsay PA-C [facility], SURGERY 909 [facility] [address]TH [place] [address] Assigned Gastroenterology Provider 08/21/21 09/24/21 Regis Lyons MD [address] 732[address] Assigned Surgical Provider 08/21/21 02/02/23 Gutierrez Guthrie DO [address], [address] [address] Orthopaedic Surgery Foot and Ankle Surgery 02/05/23 Erick Lagunas MD [facility] Momo Marrero [address] [address] Assigned Infectious Disease Provider 02/10/23 Azucena Billingsley APRN TREE WORKER Assigned Pain Medication Provider 06/16/23 08/15/23 Azucena Billingsley APRN TREE WORKER Assigned PCP 05/09/23 09/13/23 Azucena Billingsley APRN TREE WORKER Assigned PCP 10/13/23 11/12/23 Chucho Santizo MD [address] [place] [address] Assigned Neuroscience Provider 10/05/23 Azucena Billingsley APRN TREE WORKER Assigned PCP 09/14/23 10/12/23 [facility] [address] [place] [address] Assigned PCP 11/13/23 documented as of this encounter
--- OUTSIDE RECORDS SUMMARY | 2024-02-09 04:43 | XMS_ITS | Encounter Summary ---
Author Organization [facility] Address [address] [place] [address] Care Team Providers Care Civil Engineering Director Name Role Phone Ben Cadena Primary Care Provider [phone] Angel Mccormick MD Unavailable +[phone] Chucho Clement MD Unavailable +[phone] Chucho Clement MD Unavailable +[phone] Darion So MD Unavailable +[phone] Carolina Flanagan PA-C Unavailable + [phone] Guanaco Michael MD Unavailable +[phone] Regis Lyons MD Unavailable +[phone] Carolina Flanagan PA-C Unavailable +[phone] Robert Boggs PhD LP Unavailable +[phone] Milla Ramsay PA-C Unavailable +[phone] Regis Lyons MD Unavailable +[phone] Gutierrez Guthrie DO Unavailable + [phone] Erick Lagunas MD Unavailable +[phone] AnaliliaAzucena APRN APPLIANCE SERVICE SUPERVISOR Unavailable Un available Analilia, Azucena Veras APRN APPLIANCE SERVICE SUPERVISOR Unavailable Un available Analilia, Azucena Veras APRN APPLIANCE SERVICE SUPERVISOR Unavailable Un available Chucho Santizo MD Unavailable [phone] AnaliliaAzucena APRN APPLIANCE SERVICE SUPERVISOR Unavailable Un available Clinic - [facility] Unavailabl e Encounter Details Date Type Department Care Team (Late Contact Info) Description 12/07/2020 MyC Medical Advice [facility] [place] 909 [facility] SE 4th [place] [address] Carolina Flanagan PA-C [address] [facility] 195 [place], [place] 46[address] Social History Tobacco Use Types Packs/Day Years [...] Choose not to disclose 2021 4:07 PM LABOURERS documented as of this encounter Plan of Treatment Upcoming Encounters Date Type Department Care Team (Late Contact Info) Description 02/19/2024 8:00 AM CDT Appointment [facility] [address] [phone] Kenan Black MD Vascular, Vein, and Wound [facility]5 [facility] [address] [place], [place] [phone] 03/27/2024 8:30 AM CDT Office Visit [facility] [place] 2945 [facility], [address] [place] [address] Chucho Santizo MD 909 [place] [address] documented as of this encounter Visit Diagnoses Not on filedocumented in this encounter Additional Health Concerns Assessment Noted Time PHQ-9 Depression Total Score: 7 09/18/19 20 7:04 AM LABOURERS documented as of this encounter Care Teams Civil Engineering Director Relationship Specialty Start Date End Date Ben Cadena PCP - General Family Practice 09/04/19 Angel Mccormick MD Family Practice 09/04/19 Chucho Clement MD [facility] [address] [address] Orthopedics 09/04/19 Chucho Clement MD [facility] [address] [address] Assigned Musculoskeletal Provider 05/14/20 03/19/21 Darion So MD [address] [place] [address] Nephrology 12/09/20 Carolina Flanagan PA-C [address] [place] [address] Assigned Surgical Provider 12/12/20 01/08/21 Guanaco Michael MD [address] [place] [address] 754265 Assigned Surgical Provider 12/05/20 12/11/20 Regis Lyons MD 420 [facility] 195 [place], [place] 27[address] Assigned Surgical Provider 01/09/21 01/15/21 Carolina Flanagan PA-C 420 [facility] 195 [place] [address] Assigned Surgical Provider 01/16/21 08/20/21 Robert Boggs, PhD LP 420 [facility] 741 [place] [address] Assigned Behavioral Health Provider 07/10/21 02/23/23 Milla Ramsay PA-C [facility], SURGERY 909 [facility] 4[address] [place] [address] Assigned Gastroenterology Provider 08/21/21 09/24/21 Regis Lyons MD [address] [address] Assigned Surgical Provider 08/21/21 02/02/23 Gutierrez Guthrie DO [address], [facility] 200 [place] [address] Orthopaedic Surgery Foot and Ankle Surgery 02/05/23 Erick Lagunas MD [address] [facility] 300 [place] [address] Assigned Infectious Disease Provider 02/10/23 Azucena Billingsley APRN APPLIANCE SERVICE SUPERVISOR Assigned Pain Medication Provider 06/16/23 08/15/23 Azucena Billingsley APRN APPLIANCE SERVICE SUPERVISOR Assigned PCP 05/09/23 09/13/23 Azucena Billingsley APRN APPLIANCE SERVICE SUPERVISOR Assigned PCP 10/13/23 11/12/23 Chucho Santizo MD [address] [place] [address] Assigned Neuroscience Provider 10/05/23 Azucena Billingsley APRN APPLIANCE SERVICE SUPERVISOR Assigned PCP 09/14/23 10/12/23 [facility] [address] [place] [address] Assigned PCP 11/13/23 documented as of this encounter
--- OUTSIDE RECORDS SUMMARY | 2024-02-09 04:43 | XMS_ITS | Encounter Summary ---
Author Organization [facility] Address [address] [place] [address] Care Team Providers Care Trout Farmer Name Role Phone Ben Cadena Primary Care Provider [phone] Angel Mccormick MD Unavailable +[phone] Chucho Clement MD Unavailable [phone] Chucho Clement MD Unavailable +[phone] Darion So MD Unavailable [phone] Carolina Flanagan PA-C Unavailable + [phone] Guanaco Michael MD Unavailable +[phone] Regis Lyons MD Unavailable +[phone] Carolina Flanagan PA-C Unavailable +[phone] Robert Boggs PhD LP Unavailable +[phone] Milla Ramsay PA-C Unavailable +[phone] Regis Lyons MD Unavailable +[phone] Gutierrez Guthrie DO Unavailable + [phone] Erick Lagunas MD Unavailable +[phone] AnaliliaAzucena APRN GLASS NOVELTY MAKER Unavailable Un available Analilia, Azucena Veras APRN GLASS NOVELTY MAKER Unavailable Un available Analilia, Azucena Veras APRN GLASS NOVELTY MAKER Unavailable Un available Chucho Santizo MD Unavailable [phone] AnaliliaAzucena APRN GLASS NOVELTY MAKER Unavailable Un available Clinic - [facility] Unavailabl e Encounter Details Date Type Department Care Team (Late Contact Info) Description 12/07/2020 MyC Medical Advice [facility] Weight Management Clinic [place] 909 [facility] SE 4th [place] [address] Carolina Flanagan PA-C [address] [facility] 195 [place], [place] [address] Social History Tobacco Use Types Packs/Day Years [...] Choose not to disclose 2021 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 documented as of this encounter Plan of Treatment Upcoming Encounters Date Type Department Care Team (Late Contact Info) Description 02/19/2024 8:00 AM CDT Appointment [facility] [address] [phone] Kenan Black MD Vascular, Vein, and Wound [facility]5 [facility] [address] [place], [place] [phone] 03/27/2024 8:30 AM CDT Office Visit [facility] Medicine [facility] Rehabilitation Clinic [place] [address] [facility], [address] [place] [address] Chucho Santizo MD 909 [place] [address] documented as of this encounter Visit Diagnoses Not on filedocumented in this encounter Additional Health Concerns Assessment Noted Time PHQ-9 Depression Total Score: 7 09/18/19 20 7:04 AM DELIVERY AND 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 [address] [address] Orthopedics 09/04/19 Chucho Clement MD [facility] [address] [address] Assigned Musculoskeletal Provider 05/14/20 03/19/21 Darion So MD [address] [place] [address] Nephrology 12/09/20 Carolina Flanagan PA-C [address] [place] [address]015 Assigned Surgical Provider 12/12/20 01/08/21 Guanaco Michael MD [address] [place] [address] 043825 Assigned Surgical Provider 12/05/20 12/11/20 Regis Lyons MD 420 [facility] 195 [place], [place] [address] Assigned Surgical Provider 01/09/21 01/15/21 Carolina Flanagan PA-C 420 [facility] 195 [place] [address] Assigned Surgical Provider 01/16/21 08/20/21 Robert Boggs, PhD LP 420 [facility] 741 [place] [address] Assigned Behavioral Health Provider 07/10/21 02/23/23 Milla Ramsay PA-C [facility], SURGERY 909 [facility] [address] [place] [address] Assigned Gastroenterology Provider 08/21/21 09/24/21 Regis Lyons MD [address] [address] Assigned Surgical Provider 08/21/21 02/02/23 Gutierrez Guthrie DO [address] Zhang [address], [facility] 200 [place] [address] Orthopaedic Surgery Foot and Ankle Surgery 02/05/23 Erick Lagunas MD [address] [facility] 300 [place] [address] Assigned Infectious Disease Provider 02/10/23 Azucena Billingsley APRN GLASS NOVELTY MAKER Assigned Pain Medication Provider 06/16/23 08/15/23 Azucena Billingsley APRN GLASS NOVELTY MAKER Assigned PCP 05/09/23 09/13/23 Azucena Billingsley APRN GLASS NOVELTY MAKER Assigned PCP 10/13/23 11/12/23 Chucho Santizo MD [address] [place] [address] Assigned Neuroscience Provider 10/05/23 Azucena Billingsley APRN GLASS NOVELTY MAKER Assigned PCP 09/14/23 10/12/23 [facility] [address] [place] [address] Assigned PCP 11/13/23 documented as of this encounter
--- OUTSIDE RECORDS SUMMARY | 2024-02-09 04:43 | XMS_ITS | Encounter Summary ---
Author Organization [facility] Address [address] [place] [address] Care Team Providers Care Electroencephalographic Technologist Name Role Phone Ben Cadena Primary Care Provider [phone] Angel Mccormick MD Unavailable +[phone] Chucho Clement MD Unavailable [phone] Chucho Clement MD Unavailable +[phone] Darion So MD Unavailable [phone] Carolina Flanagan PA-C Unavailable + [phone] Guanaco Michael MD Unavailable +[phone] Regis Lyons MD Unavailable +[phone] Carolina Flanagan PA-C Unavailable +[phone] Robert Boggs PhD LP Unavailable +[phone] Milla Ramsay PA-C Unavailable +[phone] Regis Lyons MD Unavailable +[phone] Gutierrez Guthrie DO Unavailable + [phone] Erick Lagunas MD Unavailable +[phone] AnaliliaAzucena APRN LOSS PREVENTION AGENT Unavailable Un available Analilia, Azucena Veras APRN LOSS PREVENTION AGENT Unavailable Un available Analilia, Azucena Veras APRN LOSS PREVENTION AGENT Unavailable Un available Chucho Santizo MD Unavailable [phone] AnaliliaAzucena APRN LOSS PREVENTION AGENT Unavailable Un available Clinic - [facility] Unavailabl e Encounter Details Date Type Department Care Team (Late Contact Info) Description 12/07/2020 MyC Medical Advice [facility] Weight Management Clinic [place] 909 [facility] SE 4th [place] [address] Carolina Flanagan PA-C [address] 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 documented as of this encounter Plan of Treatment Upcoming Encounters Date Type Department Care Team (Late Contact Info) Description 02/19/2024 8:00 AM CDT Appointment [facility] Clinic [address] [phone] Kenan Black MD Vascular, Vein, and Wound [facility]5 [facility] [address] [place], [place] [phone] 03/27/2024 8:30 AM CDT Office Visit [facility] Rehabilitation [facility] [place] [address] [facility], [address] [place] [address] Chucho Santizo MD 909 [place] [address] documented as of this encounter Visit Diagnoses Not on filedocumented in this encounter Additional Health Concerns Assessment Noted Time PHQ-9 Depression Total Score: 7 09/18/19 20 7:04 AM 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 CONSULTANT documented as of this encounter Care Teams Electroencephalographic Technologist Relationship Specialty Start Date End Date Ben Cadena PCP - General Family Practice 09/04/19 Angel Mccormick MD Family Practice 09/04/19 Chucho Clement MD [facility][note 2][address] [address] Orthopedics 09/04/19 Chucho Clement MD [facility][note 2][address] [address] Assigned Musculoskeletal Provider 05/14/20 03/19/21 Darion So MD [address] [place] [address] Nephrology 12/09/20 Carolina Flanagan PA-C [address] [place] [address] 636535 Assigned Surgical Provider 12/12/20 01/08/21 Guanaco Michael MD [address] [place] [address] 647595 Assigned Surgical Provider 12/05/20 12/11/20 Regis Lyons MD 420 [facility] 195 [place], [place] [address] Assigned Surgical Provider 01/09/21 01/15/21 Carolina Flanagan PA-C 420 [facility] 195 [place] [address] Assigned Surgical Provider 01/16/21 08/20/21 Robert Boggs, PhD LP 420 [facility] 741 [place] [address] Assigned Behavioral Health Provider 07/10/21 02/23/23 Milla Ramsay PA-C [facility], SURGERY 909 [facility] [address] [place] [address] Assigned Gastroenterology Provider 08/21/21 09/24/21 Regis Lyons MD [address] [address] Assigned Surgical Provider 08/21/21 02/02/23 Gutierrez Guthrie DO [address] Zhang [address], [facility] 200 [place] [address] Orthopaedic Surgery Foot and Ankle Surgery 02/05/23 Erick Lagunas MD [address] [facility] 300 [place] [address] Assigned Infectious Disease Provider 02/10/23 Azucena Billingsley APRN LOSS PREVENTION AGENT Assigned Pain Medication Provider 06/16/23 08/15/23 Azucena Billingsley APRN LOSS PREVENTION AGENT Assigned PCP 05/09/23 09/13/23 Azucena Billingsley APRN LOSS PREVENTION AGENT Assigned PCP 10/13/23 11/12/23 Chucho Santizo MD [address] [place] [address] Assigned Neuroscience Provider 10/05/23 Azucena Billingsley APRN LOSS PREVENTION AGENT Assigned PCP 09/14/23 10/12/23 [facility] [address] [place] [address] Assigned PCP 11/13/23 documented as of this encounter
--- OUTSIDE RECORDS SUMMARY | 2024-02-09 04:43 | XMS_ITS | Encounter Summary ---
Author Organization [place] Address [address] [place] [address] Care Team Providers Care Software Implementation Project Manager Name Role Phone Ben Cadena Primary Care Provider [phone] Angel Mccormick MD Unavailable +[phone] Chucho Clement MD Unavailable +[phone] Darion So MD Unavailable +[phone] Carolina Flanagan PA-C Unavailable + [phone] Robert Boggs PhD LP Unavailable +[phone] Milla Ramsay PA-C Unavailable +[phone] Regis Lyons MD Unavailable +[phone] Gutierrez Guthrie DO Unavailable + [phone] Erick Lagunas MD Unavailable +[phone] AnaliliaAzucena APRN PRISON KEEPER Unavailable Un available AnaliliaAzucena APRN PRISON KEEPER Unavailable Un available AnaliliaAzucena APRN PRISON KEEPER Unavailable Un available Chucho Santizo MD Unavailable +[phone] AnaliliaAzucena APRN PRISON KEEPER Unavailable Un available Clinic - [facility] Unavailabl e Encounter Details Date Type Department Care Team (Late st Contact Info) Description 05/12/2021 [facility] [place] [id number] [facility] 4th [place] [address], RN 420 [facility] 195 [place] [address] Social History Tobacco Use Types Packs/Day Years [...] Choose not to disclose 2021 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 documented as of this encounter Plan of Treatment Upcoming Encounters Date Type Department Care Team (Late st Contact Info) Description 02/19/2024 8:00 AM CDT Appointment [facility] [address] [phone] Kenan Black MD Vascular, Vein, and Wound [address] [place] [address] 03/27/2024 8:30 AM CDT Office Visit [facility] [place] [address]45 [facility], [address] [place] [phone] Chucho Santizo MD [address] [place] [address] documented as of this encounter Visit Diagnoses Not on filedocumented in this encounter Additional Health Concerns Assessment Noted Time PHQ-9 Depression Total Score: 5 01/07/20 8:18 AM CDT documented as of this encounter Care Teams Software Implementation Project Manager Relationship Specialty Start Date End Date Ben Cadena Mango PCP - General Family Practice 09/04/19 Angel Mccormick MD Family Practice 09/04/19 Chucho Clement MD [address] [facility] [address] [place] [address] Orthopedics 09/04/19 Darion So MD [address] [place] [phone] Nephrology 12/09/20 Carolina Flanagan PA-C [address] [facility] 195 [place] [address] Assigned Surgical Provider 01/16/21 08/20/21 Robert Boggs, PhD LP [address] [facility] 741 [place] [address] Assigned Behavioral Health Provider 07/10/21 02/23/23 Milla Ramsay PA-C [facility], SURGERY 909 [facility] [address] 4TH [address]LR [place], [place] [address] Assigned Gastroenterology Provider 08/21/21 09/24/21 Regis Lyons MD [address] [facility] 195 [place], [place] [address]13[address] Assigned Surgical Provider 08/21/21 02/02/23 Gutierrez Guthrie DO [address], [facility] 200 [place] [address] Orthopaedic Surgery Foot and Ankle Surgery 02/05/23 Erick Lagunas MD [address] [place] [address] [facility] 300 [place] [address] Assigned Infectious Disease Provider 02/10/23 Azucena Billingsley APRN PRISON KEEPER Assigned Pain Medication Provider 06/16/23 08/15/23 Azucena Billingsley APRN PRISON KEEPER Assigned PCP 05/09/23 09/13/23 Azucena Billingsley APRN PRISON KEEPER Assigned PCP 10/13/23 11/12/23 Chucho Santizo MD [address] [place] [address] Assigned Neuroscience Provider 10/05/23 Azucena Billingsley APRN PRISON KEEPER Assigned PCP 09/14/23 10/12/23 [facility] [address] [place] [address] Assigned PCP 11/13/23 documented as of this encounter
--- OUTSIDE RECORDS SUMMARY | 2024-02-09 04:43 | XMS_ITS | Encounter Summary ---
Author Organization [place] Address [address] [place] [address] Care Team Providers Care Testing Director Name Role Phone Ben Cadena Primary Care Provider [phone] Angel Mccormick MD Unavailable +[phone] Chucho Clement MD Unavailable +[phone] Chucho Clement MD Unavailable +[phone] Darion So MD Unavailable +[phone] Carolina Flanagan PA-C Unavailable + [phone] Guanaco Michael MD Unavailable +[phone] Regis Lyons MD Unavailable +[phone] Carolina Flanagan PA-C Unavailable +[phone] Robert Boggs PhD LP Unavailable +[phone] Milla Ramsay PA-C Unavailable +[phone] Regis Lyons MD Unavailable +[phone] Gutierrez Guthrie DO Unavailable + [phone] Erick Lagunas MD Unavailable +[phone] AnaliliaAzucena APRN DEFLASH AND WASH OPERATOR Unavailable Un available Analilia, Azucena Veras APRN DEFLASH AND WASH OPERATOR Unavailable Un available Analilia, Azucena Veras APRN DEFLASH AND WASH OPERATOR Unavailable Un available Chucho Santizo MD Unavailable +[phone] AnaliliaAzucena APRN DEFLASH AND WASH OPERATOR Unavailable Un available Clinic - [facility] Unavailabl e Encounter Details Date Type Department Care Team (Late Contact Info) Description 12/07/2020 MyC Medical Advice [facility] [place] 9[address] [facility] SE 4th [place] [address] Carolina Flanagan PA-C [address] [place] [address] [facility] [address] [place], [place] [address] Social History Tobacco Use Types Packs/Day Years [...] Choose not to disclose 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 as of this encounter Plan of Treatment Upcoming Encounters Date Type Department Care Team (Late Contact Info) Description 02/19/2024 8:00 AM CDT Appointment [facility] [address] [phone] Kenan Black MD Vascular, Vein, and Wound [facility] [address] [place], [place] [id number] 03/27/2024 8:30 AM CDT Office Visit [facility] [place] [address] [facility], [address] [place] [phone] Chucho Santizo MD 909 [place] [address] documented as of this encounter Visit Diagnoses Not on filedocumented in this encounter Additional Health Concerns Assessment Noted Time PHQ-9 Depression Total Score: 7 09/18/19 20 7:04 AM COMPUTER 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 documented as of this encounter Care Teams Testing Director Relationship Specialty Start Date End Date Ben Cadena PCP - General Family Practice 09/04/19 Angel Mccormick MD Family Practice 09/04/19 Chucho Clement MD [facility] [address] [address] Orthopedics 09/04/19 Chucho Clement MD [facility] [address] [address] Assigned Musculoskeletal Provider 05/14/20 03/19/21 Darion So MD [address] [place] [phone] Nephrology 12/09/20 Carolina Flanagan PA-C [address] [place] [address] Assigned Surgical Provider 12/12/20 01/08/21 Guanaco Michael MD [address] [place] [address] 169875 Assigned Surgical Provider 12/05/20 12/11/20 Regis Lyons MD 420 [facility] 195 [place], [place] [address] Assigned Surgical Provider 01/09/21 01/15/21 Carolina Flanagan PA-C 420 [facility] 195 [place] [address] Assigned Surgical Provider 01/16/21 08/20/21 Robert Boggs, PhD LP 420 [facility] 741 [place] [address] Assigned Behavioral Health Provider 07/10/21 02/23/23 Milla Ramsay PA-C [facility], SURGERY 909 [facility] 4TH [place] [address] Assigned Gastroenterology Provider 08/21/21 09/24/21 Regis Lyons MD [address] [address] Assigned Surgical Provider 08/21/21 02/02/23 Gutierrez Guthrie DO [address], [facility] 200 [place] [address] Orthopaedic Surgery Foot and Ankle Surgery 02/05/23 Erick Lagunas MD [address] [facility] 300 [place] [address] Assigned Infectious Disease Provider 02/10/23 Azucena Billingsley APRN DEFLASH AND WASH OPERATOR Assigned Pain Medication Provider 06/16/23 08/15/23 Azucena Billingsley APRN DEFLASH AND WASH OPERATOR Assigned PCP 05/09/23 09/13/23 Azucena Billingsley APRN DEFLASH AND WASH OPERATOR Assigned PCP 10/13/23 11/12/23 Chucho Santizo MD [address] [place] [address] Assigned Neuroscience Provider 10/05/23 Azucena Billingsley APRN DEFLASH AND WASH OPERATOR Assigned PCP 09/14/23 10/12/23 [facility] [address] [place] [address] Assigned PCP 11/13/23 documented as of this encounter
--- OUTSIDE RECORDS SUMMARY | 2024-02-09 04:43 | XMS_ITS | Encounter Summary ---
Author Organization [place] Address [address] [place] [address] Care Team Providers Care Pier Hand Name Role Phone Ben Cadena Primary Care Provider [phone] Angel Mccormick MD Unavailable +[phone] Chucho Clement MD Unavailable +[phone] Chucho Clement MD Unavailable +[phone] Darion So MD Unavailable +[phone] Carolina Flanagan PA-C Unavailable + [phone] Robert Boggs PhD LP Unavailable +[phone] Milla Ramsay PA-C Unavailable +[phone] Regis Lyons MD Unavailable +[phone] Gutierrez Guthrie DO Unavailable + [phone] Erick Lagunas MD Unavailable +[phone] AnaliliaAzucena APRN DIRECTOR OF STRATEGIC SOURCING Unavailable Un available AnaliliaAzucena APRN DIRECTOR OF STRATEGIC SOURCING Unavailable Un available AnaliliaAzucena APRN DIRECTOR OF STRATEGIC SOURCING Unavailable Un available Chucho Santizo MD Unavailable +[phone] AnaliliaAzucena chilel APRN DIRECTOR OF STRATEGIC SOURCING Unavailable Un available Clinic - [facility] Unavailabl e Encounter Details Date Type Department Care Team (Late st Contact Info) Description 02/08/2021 [facility] Weight Management Clinic [address] 4th [place] [phone] [facility] Social History Tobacco Use Types Packs/Day Years [...] Choose not to disclose 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, [address] [place] [phone] Chucho Santizo MD [address] [place] [address] 2027[address] documented as of this encounter Visit Diagnoses Not on filedocumented in this encounter Additional Health Concerns Assessment Noted Time PHQ-9 Depression Total Score: 5 01/07/20 21 8:18 AM CDT documented as of this encounter Care Teams Pier Hand Relationship Specialty Start Date End Date Ben Cadena PCP - General Family Practice 09/04/19 Angel Mccormick MD Family Practice 09/04/19 Chucho Clement MD [address] [place] [address] Orthopedics 09/04/19 Chucho Clement MD [address] [place] [address] Assigned Musculoskeletal Provider 05/14/20 03/19/21 Darion So MD [address] [place] [address] Nephrology 12/09/20 Carolina Flanagan PA-C [address] [place] [address] 195 [place] [address] Assigned Surgical Provider 01/16/21 08/20/21 Robert Boggs, PhD LP [address] [place] [address] 741 [place] [address] Assigned Behavioral Health Provider 07/10/21 02/23/23 Milla Ramsay PA-C [facility], SURGERY 909 [facility] 4TH [place] [address] Assigned Gastroenterology Provider 08/21/21 09/24/21 Regis Lyons MD 420 [facility] 195 [place] [address] Assigned Surgical Provider 08/21/21 02/02/23 Gutierrez Guthrie DO [address], [place] 200 [place] [address] Orthopaedic Surgery Foot and Ankle Surgery 02/05/23 Erick Lagunas MD [address] [place] [facility] 300 [place] [address] Assigned Infectious Disease Provider 02/10/23 Azucena Billingsley APRN DIRECTOR OF STRATEGIC SOURCING Assigned Pain Medication Provider 06/16/23 08/15/23 Azucena Billingsley APRN DIRECTOR OF STRATEGIC SOURCING Assigned PCP 05/09/23 09/13/23 Azucena Billingsley APRN DIRECTOR OF STRATEGIC SOURCING Assigned PCP 10/13/23 11/12/23 Chucho Santizo MD 909 [place] [address] Assigned Neuroscience Provider 10/05/23 Azucena Billingsley APRN DIRECTOR OF STRATEGIC SOURCING Assigned PCP 09/14/23 10/12/23 [facility] [address] [place] [address] Assigned PCP 11/13/23 documented as of this encounter
--- OUTSIDE RECORDS SUMMARY | 2024-02-09 04:43 | XMS_ITS | Encounter Summary ---
Author Organization [place] Address [address] [place] [address] Care Team Providers Care Property Specialist Name Role Phone Ben Cadena Primary Care Provider [phone] Angel Mccormick MD Unavailable +[phone] Chucho Clement MD Unavailable +[phone] Darion So MD Unavailable +[phone] Carolina Flanagan PA-C Unavailable + [phone] Robert Boggs PhD LP Unavailable +[phone] Milla Ramsay PA-C Unavailable +[phone] Regis Lyons MD Unavailable +[phone] Gutierrez Guthrie DO Unavailable + [phone] Erick Lagunas MD Unavailable [phone] AnaliliaAzucena APRN CLINICAL RESEARCH NURSE COORDINATOR Unavailable Un available AnaliliaAzucena APRN CLINICAL RESEARCH NURSE COORDINATOR Unavailable Un available AnaliliaAzucena APRN CLINICAL RESEARCH NURSE COORDINATOR Unavailable Un available Chucho Santizo MD Unavailable [phone] AnaliliaAzucena APRN CLINICAL RESEARCH NURSE COORDINATOR Unavailable Un available Clinic - [facility] Unavailabl e Encounter Details Date Type Department Care Team (Late st Contact Info) Description 05/09/2021 [facility] Weight Management Clinic [address] 4th [place] [address] [facility] Social History Tobacco Use Types Packs/Day Years [...] to disclose 2021 4:[address]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 documented as of this encounter Plan of Treatment Upcoming Encounters Date Type Department Care Team (Late st Contact Info) Description 02/19/2024 8:00 AM CDT Appointment [facility] Wound Clinic [address] [address] Kenan Black MD Vascular, Vein, and Wound [address] [place] [address] 03/27/2024 8:30 AM CDT Office Visit [facility] Physical Medicine [facility] Rehabilitation Clinic [address], [address] [place] [phone] Chucho Santizo MD [address] [place] [address] 810705 documented as of this encounter Visit Diagnoses Not on filedocumented in this encounter Additional Health Concerns Assessment Noted Time PHQ-9 Depression Total Score: 5 01/07/20 21 8:18 AM CDT documented as of this encounter Care Teams Property Specialist Relationship Specialty Start Date End Date Ben Cadena PCP - General Family Practice 09/04/19 Angel Mccormick MD Family Practice 09/04/19 Chucho Clement MD [address] [facility] [address] [place] [address] Orthopedics 09/04/19 Darion So MD [address] [place] [phone] Nephrology 12/09/20 Carolina Flanagan PA-C 420 [facility] 195 [place], [place] [address] Assigned Surgical Provider 01/16/21 08/20/21 Robert Boggs, PhD LP 420 [facility] 741 [place], [place] [address] Assigned Behavioral Health Provider 07/10/21 02/23/23 Milla Ramsay PA-C [facility], SURGERY 909 [facility] [address] [place] [address] Assigned Gastroenterology Provider 08/21/21 09/24/21 Regis Lyons MD [address] [address] Assigned Surgical Provider 08/21/21 02/02/23 Gutierrez Guthrie DO Marley Zhang [address], [address] [address] Orthopaedic Surgery Foot and Ankle Surgery 02/05/23 Erick Lagunas MD [facility] Momo Marrero [address] [address] Assigned Infectious Disease Provider 02/10/23 Azucena Billingsley APRN CLINICAL RESEARCH NURSE COORDINATOR Assigned Pain Medication Provider 06/16/23 08/15/23 Azucena Billingsley APRN CLINICAL RESEARCH NURSE COORDINATOR Assigned PCP 05/09/23 09/13/23 Azucena Billingsley APRN CLINICAL RESEARCH NURSE COORDINATOR Assigned PCP 10/13/23 11/12/23 Chucho Santizo MD [address] [place] [address] Assigned Neuroscience Provider 10/05/23 Azucena Billingsley APRN CLINICAL RESEARCH NURSE COORDINATOR Assigned PCP 09/14/23 10/12/23 [facility] [address] [place] [address] Assigned PCP 11/13/23 documented as of this encounter
--- OUTSIDE RECORDS SUMMARY | 2024-02-09 04:43 | XMS_ITS | Encounter Summary ---
Author Organization [place] Address [address] [place] [address] Care Team Providers Care Head Of Business Development Name Role Phone Ben Cadena Primary Care Provider [phone] Angel Mccormick MD Unavailable +[phone] Chucho Clement MD Unavailable [phone] Chucho Clement MD Unavailable +[phone] Darion So MD Unavailable +[phone] Carolina Flanagan PA-C Unavailable + [phone] Guanaco Michael MD Unavailable +[phone] Regis Lyons MD Unavailable +[phone] Carolina Flanagan PA-C Unavailable +[phone] Robert Boggs PhD LP Unavailable +[phone] Milla Ramsay PA-C Unavailable +[phone] Regis Lyons MD Unavailable +[phone] Gutierrez Guthrie DO Unavailable + [phone] Erick Lagunas MD Unavailable +[phone] AnaliliaAzucena APRN BEHAVIORAL HEALTH CONSULTANT Unavailable Un available Analilia, zAucena Veras APRN BEHAVIORAL HEALTH CONSULTANT Unavailable Un available Analilia, Azucena Veras APRN BEHAVIORAL HEALTH CONSULTANT Unavailable Un available Chucho Santizo MD Unavailable +[phone] AnaliliaAzucena APRN BEHAVIORAL HEALTH CONSULTANT Unavailable Un available Clinic - [facility] Unavailabl e Encounter Details Date Type Department Care Team (Late Contact Info) Description 12/07/2020 MyC Medical Advice [facility] Weight [facility] [place] 909 [facility] [address] 4th [place] [address] Carolina Flanagan PA-C [address] [place] [address] [facility] 195 [place], [place] [address] Social History Tobacco Use Types Packs/Day Years [...] Choose not to disclose 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 as of this encounter Plan of Treatment Upcoming Encounters Date Type Department Care Team (Late Contact Info) Description 02/19/2024 8:00 AM CDT Appointment [facility] [address] [phone] Kenan Black MD Vascular, Vein, and Wound [facility]5 [facility] [address] [place], [place] [phone] 03/27/2024 8:30 AM CDT Office Visit [facility] Physical Medicine [facility] Rehabilitation [facility] [place] [address] [facility], [address] [place] [phone] Chucho Santizo MD 909 [place] [address] documented as of this encounter Visit Diagnoses Not on filedocumented in this encounter Additional Health Concerns Assessment Noted Time PHQ-9 Depression Total Score: 7 09/18/19 20 7: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 [address] [address] Orthopedics 09/04/19 Chucho Clement MD [facility] [address] [address] Assigned Musculoskeletal Provider 05/14/20 03/19/21 Darion So MD [address] [place] [address] Nephrology 12/09/20 Carolina Flanagan PA-C [address] [place] [address]65185 Assigned Surgical Provider 12/12/20 01/08/21 Guanaco Michael MD [address] [place] [address] Assigned Surgical Provider 12/05/20 12/11/20 Regis Lyons MD 420 [facility] 195 [place], [place] [address] Assigned Surgical Provider 01/09/21 01/15/21 Carolina Flanagna PA-C 420 [facility] 195 [place] [address] Assigned Surgical Provider 01/16/21 08/20/21 Robert Boggs, PhD LP 420 [facility] 741 [place] [address] Assigned Behavioral Health Provider 07/10/21 02/23/23 Milla Ramsay PA-C [facility], SURGERY 909 [facility] 4[address] [place] [address] Assigned Gastroenterology Provider 08/21/21 09/24/21 Regis Lyons MD [address] [address] Assigned Surgical Provider 08/21/21 02/02/23 Gutierrez Guthrie DO [address] Zhang [address], [facility] 200 [place] [address] Orthopaedic Surgery Foot and Ankle Surgery 02/05/23 Erick Lagunas MD [address] [facility] 300 [place] [address] Assigned Infectious Disease Provider 02/10/23 Azucena Billingsley APRN BEHAVIORAL HEALTH CONSULTANT Assigned Pain Medication Provider 06/16/23 08/15/23 Azucena Billingsley APRN BEHAVIORAL HEALTH CONSULTANT Assigned PCP 05/09/23 09/13/23 Azucena Billingsley APRN BEHAVIORAL HEALTH CONSULTANT Assigned PCP 10/13/23 11/12/23 Chucho Santizo MD [address] [place] [address] Assigned Neuroscience Provider 10/05/23 Azucena Billingsley APRN BEHAVIORAL HEALTH CONSULTANT Assigned PCP 09/14/23 10/12/23 [facility] [address] [place] [address] Assigned PCP 11/13/23 documented as of this encounter
--- OUTSIDE RECORDS SUMMARY | 2024-02-09 04:43 | XMS_ITS | Encounter Summary ---
Author Organization [place] Address [address] [place] [address] Care Team Providers Care Component Assembler Supervisor Name Role Phone Ben Cadena Primary Care Provider [phone] Angel Mccormick MD Unavailable +[phone] Chucho Clement MD Unavailable +[phone] Chucho Clement MD Unavailable +[phone] Darion So MD Unavailable +[phone] Carolina Flanagan PA-C Unavailable + [phone] Guanaco Michael MD Unavailable +[phone] Regis Lyons MD Unavailable +[phone] Carolina Flanagan PA-C Unavailable +[phone] Robert Boggs PhD LP Unavailable +[phone] Milla Ramsay PA-C Unavailable +[phone] Regis Lyons MD Unavailable +[phone] Gutierrez Guthrie DO Unavailable + [phone] Erick Lagunas MD Unavailable +[phone] AnaliliaAzucena APRN HAZARDOUS WASTE MANAGEMENT SPECIALIST Unavailable Un available Analilia, Azucena Veras APRN HAZARDOUS WASTE MANAGEMENT SPECIALIST Unavailable Un available Analilia, Azucena Veras APRN HAZARDOUS WASTE MANAGEMENT SPECIALIST Unavailable Un available Chucho Santizo MD Unavailable [phone] AnaliliaAzucena APRN HAZARDOUS WASTE MANAGEMENT SPECIALIST Unavailable Un available Clinic - [facility] Unavailabl e Encounter Details Date Type Department Care Team (Late st Contact Info) Description 12/09/2020 MyC Medical Advice [facility] [address] 4th [place] [phone] [facility] Social History Tobacco Use Types Packs/Day [...] Choose not to disclose 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 encounter Plan of Treatment Upcoming Encounters Date Type Department Care Team (Late Contact Info) Description 02/19/2024 8:00 AM CDT Appointment [facility] Clinic [address] [phone] Kenan Black MD Vascular, Vein, and Wound [address] [place] [address] [address] [place] [address] 03/27/2024 8:30 AM CDT Office Visit [facility] [place] [address] [facility], [address] [place] [address] Chucho Santizo MD [address] [place] [address] 398595 documented as of this encounter Visit Diagnoses Not on filedocumented in this encounter Additional Health Concerns Assessment Noted Time PHQ-9 Depression Total Score: 7 09/18/19 20 7:04 AM CONSUMER 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 SPECIALIST documented as of this encounter Care Teams Component Assembler Supervisor Relationship Specialty Start Date End Date Ben Cadena PCP - General Family Practice 09/04/19 Angel Mccormick MD Family Practice 09/04/19 Chucho Clement MD [address] [place] [address] Orthopedics 09/04/19 Chucho Clement MD [address] [place] [address] Assigned Musculoskeletal Provider 05/14/20 03/19/21 Darion So MD [address] [place] [phone] Nephrology 12/09/20 Carolina Flanagan PA-C [address] [place] [address] Assigned Surgical Provider 12/12/20 01/08/21 Guanaco Michael MD [address] [place] [address] 965915 Assigned Surgical Provider 12/05/20 12/11/20 Regis Lyons MD [address] [place] [address] Assigned Surgical Provider 01/09/21 01/15/21 Carolina Flanagan PA-C [address] [facility] 195 [place] [address] Assigned Surgical Provider 01/16/21 08/20/21 Robert Boggs, PhD LP 420 [facility] 741 [place] [address] Assigned Behavioral Health Provider 07/10/21 02/23/23 Milla Ramsay PA-C [facility], SURGERY [address] [facility] [address] [place] [address] Assigned Gastroenterology Provider 08/21/21 09/24/21 Regis Lyons MD 420 [facility] 195 [place] [address] Assigned Surgical Provider 08/21/21 02/02/23 Gutierrez Guthrie DO [address], [facility] 200 [place], [place] [phone] Orthopaedic Surgery Foot and Ankle Surgery 02/05/23 Erick Lagunas MD [address] [facility] 300 [place] [address] Assigned Infectious Disease Provider 02/10/23 Azucena Billingsley APRN HAZARDOUS WASTE MANAGEMENT SPECIALIST Assigned Pain Medication Provider 06/16/23 08/15/23 Azucena Billingsley APRN HAZARDOUS WASTE MANAGEMENT SPECIALIST Assigned PCP 05/09/23 09/13/23 Azucena Billingsley APRN HAZARDOUS WASTE MANAGEMENT SPECIALIST Assigned PCP 10/13/23 11/12/23 Chucho Santizo MD 9 [place] [address] Assigned Neuroscience Provider 10/05/23 Azucena Billingsley APRN HAZARDOUS WASTE MANAGEMENT SPECIALIST Assigned PCP 09/14/23 10/12/23 [facility] [id number] [place] [address] Assigned PCP 11/13/23 documented as of this encounter
--- OUTSIDE RECORDS SUMMARY | 2024-02-09 04:43 | XMS_ITS | Encounter Summary ---
Author Organization [place] Address [address] [place] [address] Care Team Providers Care Electro Mechanical Technician Name Role Phone Ben Cadena Primary Care Provider [phone] Angel Mccormick MD Unavailable +[phone] Chucho Clement MD Unavailable +[phone] Darion So MD Unavailable +[phone] Carolina Flanagan PA-C Unavailable + [phone] Robert Boggs PhD LP Unavailable +[phone] Milla Ramsay PA-C Unavailable +[phone] Regis Lyons MD Unavailable +[phone] Gutierrez Guthrie DO Unavailable + [phone] Erick Lagunas MD Unavailable +[phone] AnaliliaAzucena APRN MAMMOGRAPHY SUPERVISOR Unavailable Un available AnaliliaAzucena APRN MAMMOGRAPHY SUPERVISOR Unavailable Un available AnaliliaAzucena APRN MAMMOGRAPHY SUPERVISOR Unavailable Un available Chucho Santizo MD Unavailable [phone] AnaliliaAzucena APRN MAMMOGRAPHY SUPERVISOR Unavailable Un available Clinic - [facility] Unavailabl e Encounter Details Date Type Department Care Team (Late st Contact Info) Description 05/12/2021 [facility] [place] [id number] [facility] 4th [place] [address], RN 420 [facility] 195 [place] [address] Social History Tobacco Use Types Packs/Day Years [...] 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 Plan of Treatment Upcoming Encounters Date Type Department Care Team (Late st Contact Info) Description 02/19/2024 8:00 AM CDT Appointment [facility] W[facility] Clinic [address] [phone] Kenan Black MD Vascular, Vein, and Wound [address] [place] [address] 03/27/2024 8:30 AM CDT Office Visit [facility] Physical Medicine and Rehabilitation [facility] [place] [address] [facility], [address] [place] [phone] Chucho Santizo MD [address] [place] [address] documented as of this encounter Visit Diagnoses Not on filedocumented in this encounter Additional Health Concerns Assessment Noted Time PHQ-9 Depression Total Score: 5 01/07/20 8:18 AM CDT documented as of this encounter Care Teams Electro Mechanical Technician Relationship Specialty Start Date End Date Ben Cadena Mango PCP - General Family Practice 09/04/19 Angel Mccormick MD Family Practice 09/04/19 Chucho Clement MD [address] [facility] [address] [place] [address] Orthopedics 09/04/19 Darion So MD [address] [place] [phone] Nephrology 12/09/20 Carolina Flanagan PA-C [address] [place] [facility] 195 [place] [address] Assigned Surgical Provider 01/16/21 08/20/21 Robert Boggs, PhD LP [address] [place] [facility] 741 [place] [address] Assigned Behavioral Health Provider 07/10/21 02/23/23 Milla Ramsay PA-C [facility], SURGERY [address] [facility] [address] [place], [place] 432075 Assigned Gastroenterology Provider 08/21/21 09/24/21 Regis Lyons MD [address] [facility] [address] [facility] 195 [place], [place] 357465 Assigned Surgical Provider 08/21/21 02/02/23 Gutierrez Guthrie DO [address], [facility] 200 [place] [address] Orthopaedic Surgery Foot and Ankle Surgery 02/05/23 Erick Lagnuas MD [address] [place] [address] [facility] 300 [place] [address] Assigned Infectious Disease Provider 02/10/23 Azucena Billingsley APRN MAMMOGRAPHY SUPERVISOR Assigned Pain Medication Provider 06/16/23 08/15/23 Azucena Billingsley APRN MAMMOGRAPHY SUPERVISOR Assigned PCP 05/09/23 09/13/23 Azucena Billingsley APRN MAMMOGRAPHY SUPERVISOR Assigned PCP 10/13/23 11/12/23 Chucho Santizo MD [address] [place] [address] Assigned Neuroscience Provider 10/05/23 Azucena Billingsley APRN MAMMOGRAPHY SUPERVISOR Assigned PCP 09/14/23 10/12/23 [facility] [address] [place] [address] Assigned PCP 11/13/23 documented as of this encounter
--- OUTSIDE RECORDS SUMMARY | 2024-02-09 04:43 | XMS_ITS | Encounter Summary ---
Author Organization [place] Address [address] [place] [address] Care Team Providers Care Filter Cleaner Name Role Phone Ben Cadena Primary Care Provider [phone] Angel Mccormick MD Unavailable +[phone] Chucho Clement MD Unavailable [phone] Chucho Clement MD Unavailable +[phone] Darion So MD Unavailable [phone] Carolina Flanagan PA-C Unavailable + [phone] Guanaco Michael MD Unavailable +[phone] Regis Lyons MD Unavailable +[phone] Carolina Flanagan PA-C Unavailable +[phone] Robert Boggs PhD LP Unavailable +[phone] Milla Ramsay PA-C Unavailable +[phone] Regis Lyons MD Unavailable +[phone] Gutierrez Guthrie DO Unavailable + [phone] Erick Lagunas MD Unavailable +[phone] AnaliliaAzucena APRN INDUSTRIAL RELATIONS COUNSELOR Unavailable Un available Analilia, Azucena Veras APRN INDUSTRIAL RELATIONS COUNSELOR Unavailable Un available Analilia, Azucena Veras APRN INDUSTRIAL RELATIONS COUNSELOR Unavailable Un available Chucho Santizo MD Unavailable [phone] AnaliliaAzucena APRN INDUSTRIAL RELATIONS COUNSELOR Unavailable Un available Clinic - [facility] Unavailabl e Encounter Details Date Type Department Care Team (Late Contact Info) Description 12/07/2020 MyC Medical Advice [facility] [place] [address] [facility] [address] 4th [place] [address] Carolina Flanagan PA-C [address] [place] [address] [facility] 195 [place], [place] [address] Social History Tobacco Use Types Packs/Day Years [...] Choose not to disclose 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 Plan of Treatment Upcoming Encounters Date Type Department Care Team (Late Contact Info) Description 02/19/2024 8:00 AM CDT Appointment [facility] [address] [phone] Kenan Black MD Vascular, Vein, and Wound [facility] [facility] [address] [place], [place] [address] 03/27/2024 8:30 AM CDT Office Visit [facility] [place] [address] [facility], [address] [place] [address] Chucho Santizo MD 909 [place] [address] documented as of this encounter Visit Diagnoses Not on filedocumented in this encounter Additional Health Concerns Assessment Noted Time PHQ-9 Depression Total Score: 7 09/18/19 20 7:04 AM 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 documented as of this encounter Care Teams Filter Cleaner Relationship Specialty Start Date End Date Ben Cadena PCP - General Family Practice 09/04/19 Angel Mccormick MD Family Practice 09/04/19 Chucho Clement MD [facility] [address] [address] Orthopedics 09/04/19 Chucho Clement MD [facility] [address] [address] Assigned Musculoskeletal Provider 05/14/20 03/19/21 Darion So MD [address] [place] [address] Nephrology 12/09/20 Carolina Flanagan PA-C [address] [place] [address] 749375 Assigned Surgical Provider 12/12/20 01/08/21 Guanaco Michael MD [address] [place] [address] 429875 Assigned Surgical Provider 12/05/20 12/11/20 Regis Lyons MD 420 [facility] 195 [place], [place] 7[address]165 Assigned Surgical Provider 01/09/21 01/15/21 Carolina Flanagan PA-C 420 [facility] 195 [place] [address] Assigned Surgical Provider 01/16/21 08/20/21 Robert Boggs, PhD LP 420 [facility] 741 [place] [address] Assigned Behavioral Health Provider 07/10/21 02/23/23 Milla Ramsay PA-C [facility], SURGERY [address] [facility] 4[address] [place] [address] Assigned Gastroenterology Provider 08/21/21 09/24/21 Regis Lyons MD [address] [address] Assigned Surgical Provider 08/21/21 02/02/23 Gutierrez Guthrie DO [address] Zhang [address], [facility] 200 [place] [address] Orthopaedic Surgery Foot and Ankle Surgery 02/05/23 Erick Lagunas MD [address] [facility] 300 [place] [address] Assigned Infectious Disease Provider 02/10/23 Azucena Billingsley APRN INDUSTRIAL RELATIONS COUNSELOR Assigned Pain Medication Provider 06/16/23 08/15/23 Azucena Billingsley APRN INDUSTRIAL RELATIONS COUNSELOR Assigned PCP 05/09/23 09/13/23 Azucena Billingsley APRN INDUSTRIAL RELATIONS COUNSELOR Assigned PCP 10/13/23 11/12/23 Chucho Santizo MD [address] [place] [address] Assigned Neuroscience Provider 10/05/23 Azucena Billingsley APRN INDUSTRIAL RELATIONS COUNSELOR Assigned PCP 09/14/23 10/12/23 [facility] [address] [place] [address] Assigned PCP 11/13/23 documented as of this encounter
--- OUTSIDE RECORDS SUMMARY | 2024-02-09 04:43 | XMS_ITS | Encounter Summary ---
Author Organization [place] Address [address] [place] [address] Care Team Providers Care Metal Trim Erector Name Role Phone Ben Cadena Primary Care Provider [phone] Angel Mccormick MD Unavailable +[phone] Chucho Clement MD Unavailable [phone] Chucho Clement MD Unavailable +[phone] Darion So MD Unavailable +[phone] Carolina Flanagan PA-C Unavailable + [phone] Guanaco Michael MD Unavailable +[phone] Regis Lyons MD Unavailable +[phone] Carolina Flanagan PA-C Unavailable +[phone] Robert Boggs PhD LP Unavailable +[phone] Milla Ramsay PA-C Unavailable +[phone] Regis Lyons MD Unavailable +[phone] Gutierrez Guthrie DO Unavailable + [phone] Erick Lagunas MD Unavailable +[phone] AnaliliaAzucena APRN WEB CONTENT MANAGER Unavailable Un available Analilia, Azucena Veras APRN WEB CONTENT MANAGER Unavailable Un available Analilia, Azucena Veras APRN WEB CONTENT MANAGER Unavailable Un available Chucho Santizo MD Unavailable [phone] AnaliliaAzucena APRN WEB CONTENT MANAGER Unavailable Un available Clinic - [facility] Unavailabl e Encounter Details Date Type Department Care Team (Late Contact Info) Description 12/07/[address] 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 Wound Clinic [address] [phone] Kenan Black MD Vascular, Vein, and Wound [facility]5 [facility] [address] [place], [place] [phone] 03/27/2024 8:30 AM CDT Office Visit [facility] Physical Medicine and Rehabilitation Clinic [place] [address] [facility], [address] [place] [address] Chucho Santizo MD 909 [place] [address] documented as of this encounter Visit Diagnoses Not on filedocumented in this encounter Additional Health Concerns Assessment Noted Time PHQ-9 Depression Total Score: 7 09/18/19 20 7:04 AM GAS STOVE SERVICER HELPER documented as of this encounter Care Teams Metal Trim Erector Relationship Specialty Start Date End Date Ben Cadena PCP - General Family Practice 09/04/19 Angel Mccormick MD Family Practice 09/04/19 Chucho Clement MD [facility] [address] [address] Orthopedics 09/04/19 Chucho Clement MD [facility] [address] [address] Assigned Musculoskeletal Provider 05/14/20 03/19/21 Darion So MD [address] [place] [address] Nephrology 12/09/20 Carolina Flanagan PA-C [address] [place] [address] 261715 Assigned Surgical Provider 12/12/20 01/08/21 Guanaco Michael MD [address] [place] [address] 335815 Assigned Surgical Provider 12/05/20 12/11/20 Regis Lyons MD 420 [facility] 195 [place], [place] [address] Assigned Surgical Provider 01/09/21 01/15/21 Carolina Flanagan PA-C 420 [facility] 195 [place] [address] Assigned Surgical Provider 01/16/21 08/20/21 Robert Boggs, PhD LP 420 [facility] 741 [place] [address] Assigned Behavioral Health Provider 07/10/21 02/23/23 Milla Ramsay PA-C [facility], SURGERY 909 [facility] 4TH [place] [address] Assigned Gastroenterology Provider 08/21/21 09/24/21 Regis Lyons MD [address] [address] Assigned Surgical Provider 08/21/21 02/02/23 Gutierrez Guthrie DO [address] Zhang [address], [facility] 200 [place] [address] Orthopaedic Surgery Foot and Ankle Surgery 02/05/23 Erick Lagunas MD [address] [facility] 300 [place] [address] Assigned Infectious Disease Provider 02/10/23 Azucena Billingsley APRN WEB CONTENT MANAGER Assigned Pain Medication Provider 06/16/23 08/15/23 Azucena Billingsley APRN WEB CONTENT MANAGER Assigned PCP 05/09/23 09/13/23 Azucena Billingsley APRN WEB CONTENT MANAGER Assigned PCP 10/13/23 11/12/23 Chucho Santizo MD [address] [place] [address] Assigned Neuroscience Provider 10/05/23 Azucena Billingsley APRN WEB CONTENT MANAGER Assigned PCP 09/14/23 10/12/23 [facility] [address] [place] [address] Assigned PCP 11/13/23 documented as of this encounter
--- OUTSIDE RECORDS SUMMARY | 2024-02-09 04:43 | XMS_ITS | Encounter Summary ---
Author Organization [place] Address [address] [place] [address] Care Team Providers Care Physiological Chemist Name Role Phone Ben Cadena Primary Care Provider [phone] Angel Mccormick MD Unavailable +[phone] Chucho Clement MD Unavailable +[phone] Darion So MD Unavailable +[phone] Carolina Flanagan PA-C Unavailable + [phone] Robert Boggs PhD LP Unavailable +[phone] Milla Ramsay PA-C Unavailable +[phone] Regis Lyons MD Unavailable +[phone] Gutierrez Guthrie DO Unavailable + [phone] Erick Lagunas MD Unavailable +[phone] AnaliliaAzucena APRN CHILD WELFARE SOCIAL WORKER Unavailable Un available AnaliliaAzucena APRN CHILD WELFARE SOCIAL WORKER Unavailable Un available AnaliliaAzucena APRN CHILD WELFARE SOCIAL WORKER Unavailable Un available Chucho Santizo MD Unavailable [phone] AnaliliaAzucena APRN CHILD WELFARE SOCIAL WORKER Unavailable Un available Clinic - [facility] Unavailabl e Encounter Details Date Type Department Care Team (Late st Contact Info) Description 05/12/2021 [facility] Management [facility] [place] [address] [facility] 4th [place] [address], RN 420 [facility] 195 [place] [address] Social History Tobacco Use Types Packs/Day Years [...] Choose not to disclose 2021 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 documented as of this encounter Plan of Treatment Upcoming Encounters Date Type Department Care Team (Late st Contact Info) Description 02/19/2024 8:00 AM CDT Appointment [facility] [address] [phone] Kenan Black MD Vascular, Vein, and Wound [address] [place] [address] 03/27/2024 8:30 AM CDT Office Visit [facility] [place] [address] [facility], [address] [place] [phone] Chucho Santizo MD [address] [place] [address] documented as of this encounter Visit Diagnoses Not on filedocumented in this encounter Additional Health Concerns Assessment Noted Time PHQ-9 Depression Total Score: 5 01/07/20 8:18 AM CDT documented as of this encounter Care Teams Physiological Chemist Relationship Specialty Start Date End Date Ben Cadena Mango PCP - General Family Practice 09/04/19 Angel Mccormick MD Family Practice 09/04/19 Chucho Clement MD [address] [facility] [address] [place] [address] Orthopedics 09/04/19 Darion So MD [address] [place] [address] Nephrology 12/09/20 Carolina Flanagan PA-C [address] [place] [address] [facility] 195 [place] [address] Assigned Surgical Provider 01/16/21 08/20/21 Robret Bgogs, PhD LP [address] [place] [address] [facility] 741 [place] [address] Assigned Behavioral Health Provider 07/10/21 02/23/23 Milla Ramsay PA-C [facility], SURGERY [address] [facility] [address] [place], [place] [address] Assigned Gastroenterology Provider 08/21/21 09/24/21 Regis Lyons MD [address] [place] [address] [facility] 195 [place], [place] [address] Assigned Surgical Provider 08/21/21 02/02/23 Gutierrez Guthrie DO [address] Zhang [address], [facility] 200 [place] [address] Orthopaedic Surgery Foot and Ankle Surgery 02/05/23 Erick Lagunas MD [address] [place] [address] [facility] 300 [place] [address] Assigned Infectious Disease Provider 02/10/23 Azucena Billingsley APRN CHILD WELFARE SOCIAL WORKER Assigned Pain Medication Provider 06/16/23 08/15/23 Azucena Billingsley APRN CHILD WELFARE SOCIAL WORKER Assigned PCP 05/09/23 09/13/23 zAucena Billingsley APRN CHILD WELFARE SOCIAL WORKER Assigned PCP 10/13/23 11/12/23 Chucho Santizo MD [address] [place] [address] Assigned Neuroscience Provider 10/05/23 Azucena Billingsley APRN CHILD WELFARE SOCIAL WORKER Assigned PCP 09/14/23 10/12/23 [facility] [address] [place] [address] Assigned PCP 11/13/23 documented as of this encounter
--- OUTSIDE RECORDS SUMMARY | 2024-02-09 04:43 | XMS_ITS | Encounter Summary ---
Author Organization [place] Address [address] [place] [address] Care Team Providers Care Dental Detail Representative Name Role Phone Ben Cadena Primary Care Provider [phone] Angel Mccormick MD Unavailable +[phone] Chucho Clement MD Unavailable +[phone] Chucho Clement MD Unavailable +[phone] Darion So MD Unavailable +[phone] Caorlina Flanagan PA-C Unavailable + [phone] Robert Boggs PhD LP Unavailable +[phone] Milla Ramsay PA-C Unavailable +[phone] Regis Lyons MD Unavailable +[phone] Gutierrez Guthrie DO Unavailable + [phone] Erick Lagunas MD Unavailable +[phone] AnaliliaAzucena APRN REGIONAL LOSS PREVENTION MANAGER Unavailable Un available AnaliliaAzucena APRN REGIONAL LOSS PREVENTION MANAGER Unavailable Un available AnaliliaAzucena APRN REGIONAL LOSS PREVENTION MANAGER Unavailable Un available Chucho Santizo MD Unavailable +[phone] AnaliliaAzucena APRN REGIONAL LOSS PREVENTION MANAGER Unavailable Un available Clinic - 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 documented as of this encounter Plan of Treatment Upcoming Encounters Date Type Department Care Team (Late st Contact Info) Description 02/19/2024 8:00 AM CDT Appointment [facility] [address] [phone] Kenan Black MD Vascular, Vein, and Wound [address] [place] [address] 03/27/2024 8:30 AM CDT Office Visit [facility] [address] 200 [place] [phone] Chucho Santizo MD [address] [place] [address] 165655 documented as of this encounter Visit Diagnoses Not on filedocumented in this encounter Additional Health Concerns Assessment Noted Time PHQ-9 Depression Total Score: 5 01/07/20 21 8:18 AM CDT documented as of this encounter Care Teams Dental Detail Representative Relationship Specialty Start Date End Date Ben Cadena PCP - General Family Practice 09/04/19 Angel Mccormick MD Family Practice 09/04/19 Chucho Clement MD [facility] [address] [address] Orthopedics 09/04/19 Chucho Clement MD [facility] [address] [address] Assigned Musculoskeletal Provider 05/14/20 03/19/21 Darion So MD [address] [place] [phone] Nephrology 12/09/20 Carolina Flanagan PA-C [address] [facility] 195 [place], [place] [address] Assigned Surgical Provider 01/16/21 08/20/21 Robert Boggs, PhD LP [address] [facility] 741 [place], [place] [address] Assigned Behavioral Health Provider 07/10/21 02/23/23 Milla Ramsay PA-C [facility], SURGERY 909 [facility] [address]TH [address] [place], [place] [address] Assigned Gastroenterology Provider 08/21/21 09/24/21 Regis Lyons MD [address] [facility] 195 [place] [address] Assigned Surgical Provider 08/21/21 02/02/23 Gutierrez Guthrie DO [address], [facility] 200 [place] [address] Orthopaedic Surgery Foot and Ankle Surgery 02/05/23 Erick Lagunas MD [facility] Mom[address] Gregg [facility] 300 [place] [address] Assigned Infectious Disease Provider 02/10/23 Azucena Billingsley APRN REGIONAL LOSS PREVENTION MANAGER Assigned Pain Medication Provider 06/16/23 08/15/23 Azucena Billingsley APRN REGIONAL LOSS PREVENTION MANAGER Assigned PCP 05/09/23 09/13/23 Azucena Billingsley APRN REGIONAL LOSS PREVENTION MANAGER Assigned PCP 10/13/23 11/12/23 Chucho Santizo MD [address] [place] [address] Assigned Neuroscience Provider 10/05/23 Azucena Billingsley APRN REGIONAL LOSS PREVENTION MANAGER Assigned PCP 09/14/23 10/12/23 [facility] [address] [place] [address] Assigned PCP 11/13/23 documented as of this encounter
--- OUTSIDE RECORDS SUMMARY | 2024-02-09 04:43 | XMS_ITS | Encounter Summary ---
Author Organization [place] Address [address] [place] [address] Care Team Providers Care Forest Logistics Manager Name Role Phone Ben Cadena Primary Care Provider [phone] Angel Mccormick MD Unavailable +[phone] Chucho Clement MD Unavailable +[phone] Chucho Clement MD Unavailable +[phone] Darion So MD Unavailable +[phone] Carolina Flanagan PA-C Unavailable + [phone] Regis Lyons MD Unavailable +[phone] Carolina Flanagan PA-C Unavailable +[phone] Robert Boggs PhD LP Unavailable +[phone] Milla Ramsay PA-C Unavailable +[phone] Regis Lyons MD Unavailable +[phone] Gutierrez Guthrie DO Unavailable + [phone] Erick Lagunas MD Unavailable +[phone] AnaliliaAzucena APRN DRY CELL ASSEMBLY SUPERVISOR Unavailable Un available Analilia, Azucena Veras APRN DRY CELL ASSEMBLY SUPERVISOR Unavailable Un available Analilia, Azucena Veras APRN DRY CELL ASSEMBLY SUPERVISOR Unavailable Un available Chucho Santizo MD Unavailable [phone] AnaliliaAzucena chilel APRN DRY CELL ASSEMBLY SUPERVISOR Unavailable Un available Clinic - [facility] Unavailabl e Encounter Details Date Type Department Care Team (Late Contact Info) Description 12/17/2020 MyC Medical Advice [facility] [address] 4th [place] [address] RN 420 [facility] 195 [place], [place] [address] Social History Tobacco Use Types Packs/Day Years [...] Choose not to disclose 2021 4: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 documented as of this encounter Plan of Treatment Upcoming Encounters Date Type Department Care Team (Late st Contact Info) Description 02/19/2024 8:00 AM CDT Appointment [facility] [address] [phone] Kenan Black MD Vascular, Vein, and Wound [address] [place] [address] [address] [place] [address] 03/27/2024 8:30 AM CDT Office Visit [facility] [place] [address] [facility], [address] [place] [phone] Chucho Santizo MD [address] [place] [address] documented as of this encounter Visit Diagnoses Not on filedocumented in this encounter Additional Health Concerns Assessment Noted Time PHQ-9 Depression Total Score: 7 09/18/19 20 7:04 AM RADIAL DRILL PRESS SET UP OPERATOR documented as of this encounter Care Teams Forest Logistics Manager Relationship Specialty Start Date End Date Ben Cadena PCP - General Family Practice 09/04/19 Angel Mccormick MD Family Practice 09/04/19 Chucho Clement MD [address] [place] [address] Orthopedics 09/04/19 Chucho Clement MD [address] [place] [address] Assigned Musculoskeletal Provider 05/14/20 03/19/21 Darion So MD [address] [place] [address] Nephrology 12/09/20 Carolina Flanagan PA-C [address] [place] [address] Assigned Surgical Provider 12/12/20 01/08/21 Regis Lyons MD [address] [place] [address] Assigned Surgical Provider 01/09/21 01/15/21 Carolina Flaangan PA-C 420 [facility] 195 [place] [address] Assigned Surgical Provider 01/16/21 08/20/21 Robert Boggs, PhD LP 420 [facility] 741 [place] [address] Assigned Behavioral Health Provider 07/10/21 02/23/23 Milla Ramsay PA-C [facility], SURGERY 909 [facility] [address] [place], [place] [address] Assigned Gastroenterology Provider 08/21/21 09/24/21 Regis Lyons MD 420 [facility] 195 [place], [place] 2[address] Assigned Surgical Provider 08/21/21 02/02/23 Gutierrez Guthrie DO [address], [facility] 200 [place], [place] [phone] Orthopaedic Surgery Foot and Ankle Surgery 02/05/23 Erick Lagunas MD [facility] Mom[address] Gregg [facility] 300 [place], [place] [address] Assigned Infectious Disease Provider 02/10/23 Azucena Billingsley APRN DRY CELL ASSEMBLY SUPERVISOR Assigned Pain Medication Provider 06/16/23 08/15/23 Azucena Billingsley APRN DRY CELL ASSEMBLY SUPERVISOR Assigned PCP 05/09/23 09/13/23 Azucena Billingsley APRN DRY CELL ASSEMBLY SUPERVISOR Assigned PCP 10/13/23 11/12/23 Chucho Santizo MD [address] [place] [address] Assigned Neuroscience Provider 10/05/23 Azucena Billingsley APRN DRY CELL ASSEMBLY SUPERVISOR Assigned PCP 09/14/23 10/12/23 [facility] [address] [place] [address] Assigned PCP 11/13/23 documented as of this encounter
--- OUTSIDE RECORDS SUMMARY | 2024-02-09 04:43 | XMS_ITS | Encounter Summary ---
Author Organization [place] Address [address] [place] [address] Care Team Providers Care Mesh Worker Name Role Phone Ben Cadena Primary Care Provider [phone] Angel Mccormick MD Unavailable +[phone] Chucho Clement MD Unavailable [phone] Chucho Clement MD Unavailable +[phone] Darion So MD Unavailable [phone] Carolina Flanagan PA-C Unavailable + [phone] Guanaco Michael MD Unavailable +[phone] Regis Lyons MD Unavailable +[phone] Carolina Flanagan PA-C Unavailable +[phone] Robert Boggs PhD LP Unavailable +[phone] Milla Ramsay PA-C Unavailable +[phone] Regis Lyons MD Unavailable +[phone] Gutierrez Guthrie DO Unavailable + [phone] Erick Lagunas MD Unavailable +[phone] AnaliliaAzucena APRN SHIP SURVEYOR Unavailable Un available Analilia, Azucena Veras APRN SHIP SURVEYOR Unavailable Un available Analilia, Azucena Veras APRN SHIP SURVEYOR Unavailable Un available Chucho Santizo MD Unavailable [phone] AnaliliaAzucena APRN SHIP SURVEYOR Unavailable Un available Clinic - [facility] Unavailabl e Encounter Details Date Type Department Care Team (Late st Contact Info) Description 12/09/[address] [facility] [address] 4th [place] [phone] [facility] Social History Tobacco Use Types Packs/Day [...] Choose not to disclose 2021 4:07 PM GIFTS OFFICER documented as of this encounter Plan of Treatment Upcoming Encounters Date Type Department Care Team (Late Contact Info) Description 02/19/2024 8:[address] [facility] Wound Clinic [address] [phone] Kenan Black MD Vascular, Vein, and Wound [address] [place] [address] [address] [place] [address] 03/27/2024 8:30 AM CDT Office Visit [facility] Medicine [facility] Rehabilitation [facility] [place] [address] [facility], [address] [place] [phone] Chucho Santizo MD [address] [place] [address] documented as of this encounter Visit Diagnoses Not on filedocumented in this encounter Additional Health Concerns Assessment Noted Time PHQ-9 Depression Total Score: 7 09/18/19 20 7:04 AM GIFTS OFFICER documented as of this encounter Care Teams Mesh Worker Relationship Specialty Start Date End Date Ben Cadena PCP - General Family Practice 09/04/19 Angel Mccormick MD Family Practice 09/04/19 Chucho Clement MD [address] [place] [address] Orthopedics 09/04/19 Chucho Clement MD [address] [place] [address] Assigned Musculoskeletal Provider 05/14/20 03/19/21 Darion So MD [address] [place] [phone] Nephrology 12/09/20 Carolina Flanagan PA-C [address] [place] [address] Assigned Surgical Provider 12/12/20 01/08/21 Guanaco Michael MD [address] [place] [address] 371645 Assigned Surgical Provider 12/05/20 12/11/20 Regis Lyons MD [address] [place] [address] Assigned Surgical Provider 01/09/21 01/15/21 Carolina Flanagan PA-C 420 [facility] 195 [place] [address] Assigned Surgical Provider 01/16/21 08/20/21 Robert Boggs, PhD LP 420 [facility] 741 [place] [address] Assigned Behavioral Health Provider 07/10/21 02/23/23 Milla Ramsay PA-C [facility], SURGERY 909 [facility] [address] [place] [address] Assigned Gastroenterology Provider 08/21/21 09/24/21 Regis Lyons MD 420 [facility] 195 [place] [address] Assigned Surgical Provider 08/21/21 02/02/23 Gutierrez Guthrie DO [address], [facility] 200 [place], [place] [phone] Orthopaedic Surgery Foot and Ankle Surgery 02/05/23 Erick Lagunas MD [address] [facility] 300 [place] [address] Assigned Infectious Disease Provider 02/10/23 Azucena Billingsley APRN SHIP SURVEYOR Assigned Pain Medication Provider 06/16/23 08/15/23 Azucena Billingsley APRN SHIP SURVEYOR Assigned PCP 05/09/23 09/13/23 Azucena Billingsley APRN SHIP SURVEYOR Assigned PCP 10/13/23 11/12/23 Chucho Santizo MD 9 [place] [address] Assigned Neuroscience Provider 10/05/23 Azucena Billingsley APRN SHIP SURVEYOR Assigned PCP 09/14/23 10/12/23 [facility] [address] [place] [address] Assigned PCP 11/13/23 documented as of this encounter
--- OUTSIDE RECORDS SUMMARY | 2024-02-09 04:44 | XMS_ITS | Encounter Summary ---
Author Organization [place] Address [address] [place] [address] Care Team Providers Care Plastic Technician Name Role Phone Ben Caedna Primary Care Provider [phone] Angel Mccormick MD Unavailable +[phone] Chucho Clement MD Unavailable [phone] Chucho Clement MD Unavailable +[phone] Darion So MD Unavailable [phone] Carolina Flanagan PA-C Unavailable + [phone] Guanaco Michael MD Unavailable +[phone] Regis Lyons MD Unavailable +[phone] Carolina Flanagan PA-C Unavailable +[phone] Robert Boggs PhD LP Unavailable +[phone] Milla Ramsay PA-C Unavailable +[phone] Regis Lyons MD Unavailable +[phone] Gutierrez Guthrie DO Unavailable + [phone] Erick Lagunas MD Unavailable +[phone] AnaliliaAzucena APRN FABRIC AWNING REPAIRER Unavailable Un available Analilia, Azucena Veras APRN FABRIC AWNING REPAIRER Unavailable Un available Analilia, Azucena Veras APRN FABRIC AWNING REPAIRER Unavailable Un available Chucho Santizo MD Unavailable [phone] AnaliliaAzucena APRN FABRIC AWNING REPAIRER Unavailable Un available Clinic - [place] Unavailabl e Reason for Visit * Reason Onset Date Comments Forms 09/19/2019 Pt wanting an op inion of medical decision form emailed to him Encounter Details Date Type Department Care Team (Late Contact Info) Description 09/19/2019 Telephone [facility] Orthopaedic Clinic [address] [facility] [address] 4th [place] [address] Chucho Clement MD [address] [place] [address] Forms (Pt wanting an opinion of medical decision form emailed to him ) Social History Tobacco Use Types Packs/Day Years Used Date Smoking Tobacco: Never Assessed PHQ-2 Answer Date Recorded PHQ-2 Score 4 09/17/2019 Sex and Gender Information Value Date Recorded Sex Assigned at Male 11/29/2020 12:43 PM CDT Gender Identity Male 11/29/2020 12:43 PM CDT Sexual Orientation Choose not to disclose 2021 4:07 PM 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 Pt is wanting somekind of form or letter of medical decision or opinion email to the email address on file. Please follow up with pt when completed. Thank you Action Taken: Message routed to: [facility] Travel Screening: Not Applicable TS FITNESS AND WELLNESS DIRECTOR documented in this encounter Plan of Treatment Upcoming Encounters Date Type Department Care Team (Late Contact Info) Description 02/19/2024 8:00 AM CDT Appointment [facility] [place] [address] [place] [phone] Kenan Black MD Vascular, Vein, and Wound [address] [facility] [address] [place] [address] 03/27/2024 8:30 AM CDT Office Visit [facility] Physical Medicine [facility] Rehabilitation [facility] [place] [address] [facility], [address] [place] [phone] Chucho Santizo MD 909 [place] [address] documented as of this encounter Visit Diagnoses Not on filedocumented in this encounter Additional Health Concerns Assessment Noted Time PHQ-9 Depression Total Score: 7 09/18/19 20 7:04 AM SPORTS FITNESS AND WELLNESS DIRECTOR documented as of this encounter Care Teams Plastic Technician Relationship Specialty Start Date End Date Ben Cadena PCP - General Family Practice 09/04/19 Angel Mccormick MD Family Practice 09/04/19 Chucho Clement MD [address] [place] [address] Orthopedics 09/04/19 Chucho Clement MD [address] [place] [address] Assigned Musculoskeletal Provider 05/14/20 03/19/21 Darion So MD [address] [place] [phone] Nephrology 12/09/20 Carolina Flanagan PA-C [address] [place] [address] Assigned Surgical Provider 12/12/20 01/08/21 Guanaco Michael MD 420 [facility] 195 [place] [address] Assigned Surgical Provider 12/05/20 12/11/20 Regis Lyons MD 420 [facility] 195 [place] [address] Assigned Surgical Provider 01/09/21 01/15/21 Carolina Flanagan PA-C [address] [place] [address] Assigned Surgical Provider 01/16/21 08/20/21 Robert Bogsg, PhD LP [address] [place] [address] 741 [place] [address] Assigned Behavioral Health Provider 07/10/21 02/23/23 Milla Ramsay PA-C [facility], SURGERY 9[address] [facility] [address] [place] [address] Assigned Gastroenterology Provider 08/21/21 09/24/21 Regis Lyons MD [address] [place] [address] 195 [place] [address] Assigned Surgical Provider 08/21/21 02/02/23 Gutierrez Guthrie DO [address] Zhang [address], [address] [address] Orthopaedic Surgery Foot and Ankle Surgery 02/05/23 Erick Lagunas MD [address] [facility] 300 [place] [address] Assigned Infectious Disease Provider 02/10/23 Azucena Billingsley APRN FABRIC AWNING REPAIRER Assigned Pain Medication Provider 06/16/23 08/15/23 Azucena Billingsley APRN FABRIC AWNING REPAIRER Assigned PCP 05/09/23 09/13/23 Azucena Billingsley APRN FABRIC AWNING REPAIRER Assigned PCP 10/13/23 11/12/23 Chucho Santizo MD 909 [place] [address] Assigned Neuroscience Provider 10/05/23 Azucena Billingsley APRN FABRIC AWNING REPAIRER Assigned PCP 09/14/23 10/12/23 [facility] [address] [place] [address] Assigned PCP 11/13/23 documented as of this encounter
--- OUTSIDE RECORDS SUMMARY | 2024-02-09 04:44 | XMS_ITS | Clinical Summary ---
Author Organization [facility] Address [address] [address] Phone Care Team Providers Care County Engineer Name Role Phone Unavailable Primary Care Provider Unavailabl e Allergies Active Allergy Reactions Criticality Noted Date Comments Allopurinol RASH Medium 09/13/2019 Medications Medication Sig Dispensed Refills Start Date End Date Status Insulin Aspart (NOVOLOG FLEXPEN SC) Inject under the skin. Active Insulin Degludec (TRESIBA FLEXTOUCH SC) Inject under the skin. Active Semaglutide (OZEMPIC, 1 MG/DOSE, SC) Inject under the skin. Active unknown medicationIndications: Long acting insulin not levemir or lantus Indications: Long acting insulin not levemir or lantus Active Social History Tobacco Use Types Packs/Day Years Used Date Smoking Tobacco: Former Smokeless Tobacco: Never Alcohol Use Standard Drinks/Week Comments Never 0 (1 standard drink = 0.6 oz pur e alcohol) Sex and Gender Information Value Date Recorded Sex Assigned at Male 08/13/2020 10:12 PM JEWELRY DIPPER Gender Identity Male 08/13/2020 10:12 PM JEWELRY DIPPER Sexual Orientation Not on file Job Start Date Occupation Industry Not on file Not on file Not on file Obstetrics History Last Filed Vital Signs Vital Sign Reading Time Taken Comments Blood Pressure 122/76 01/13/2023 7:53 AM CDT Pulse 88 01/13/2023 7:53 AM CDT Temperature 36.6 ??C (97.8 ??F) 01/13/2023 7:53 AM CD T Respiratory Rate 16 01/13/2023 7:53 AM CDT Oxygen Saturation 98% 01/13/2023 7:53 AM CDT Inhaled Oxygen Concentration - - Weight 131.5 kg (290 lb) 01/13/2023 7:53 AM CDT Height 167.6 cm (5' 6) 01/13/2023 7:53 AM CDT Body Mass Index 46.81 01/13/2023 7:53 AM CDT Plan of Treatment Not on file
--- OUTSIDE RECORDS SUMMARY | 2024-02-09 04:44 | XMS_ITS | Encounter Summary ---
Author Organization [place] Address [address] [place] [address] Care Team Providers Care Neonatal Icu Coordinator Name Role Phone Ben Cadena Primary Care Provider [phone] Angel Mccormick MD Unavailable [phone] Chucho Clement MD Unavailable [phone] Chucho Clement MD Unavailable [phone] Darion So MD Unavailable [phone] Carolina Flanagan PA-C Unavailable + [phone] Guanaco Michael MD Unavailable [phone] Regis Lyons MD Unavailable [phone] Carolina Flanagan PA-C Unavailable [phone] Robert Boggs PhD LP Unavailable [phone] Milla Ramsay PA-C Unavailable [phone] Regis Lyons MD Unavailable [phone] Gutierrez Guthrie DO Unavailable + [phone] Erick Lagunas MD Unavailable [phone] AnaliliaAzucena APRN PET CARE ATTENDANT Unavailable Un available Analilia, Azucena Veras APRN PET CARE ATTENDANT Unavailable Un available Analilia, Azucena Veras APRN PET CARE ATTENDANT Unavailable Un available Chucho Santizo MD Unavailable [phone] AnaliliaAzucena APRN PET CARE ATTENDANT Unavailable Un available Clinic - [facility] Unavailabl e Reason for Visit * Reason Onset Date Comments *-*INCOMING RECORDS*-* 09/17/2019 Encounter Details Date Type Department Care Team (Late st Contact Info) Description 09/17/[address] [facility] [address] [facility] [address] [place] [address] Chucho Clement MD [address] [place] [address] *-*INCOMING RECORDS*-* Social History Tobacco Use Types Packs/Day Years Used Date Smoking Tobacco: Never Assessed PHQ-2 Answer Date Recorded PHQ-2 Score 4 09/17/2019 Sex and Gender Information Value Date Recorded Sex Assigned at Male 11/29/2020 12:43 PM CDT Gender Identity Male 11/29/2020 12:43 PM CDT Sexual Orientation Choose not to disclose 2021 4:07 PM PHYSICIAN ASSISTANT PSYCHIATRY documented as of this encounter Miscellaneous Notes * Telephone Encounter - Isatu Bajwa - 09/08/2019 3:34 PM CST DIAGNOSIS: Consult SI Joint Fusion - Referred by Dr Angel Mccormick [facility] [place] [phone]. had CT 2018 & INjection 2019 in [employer] system- No history of surgery - No recent imaging - Med Recs at [facility] - also need imaging & records & INjections from pain clinic in [facility] & PT notes from Elicia Hawthorne. Appt per pt. per Kacy Liu APPOINTMENT DATE: Sep 17, 2019 NOTES STATUS DETAILS OFFICE NOTE from referring provider Care Everywhere 08/21/19 Dr. Mccormick OFFICE NOTE from other specialist Care Everywhere PT elicia selby ([facility]) 07/10/19, 07/08/19, 07/03/19, 07/01/19, 06/26/19, 06/24/19, 06/05/19... [facility] - [facility] 01/26/16 [facility] 01/10/18 Dr. Ragsdale ([facility]) [facility] DISCHARGE SUMMARY from hospital N/A DISCHARGE REPORT from the ER N/A OPERATIVE REPORT N/A MEDICATION LIST Care Everywhere IMPLANT RECORD/STICKER N/A LABS CBC/DIFF N/A CULTURES N/A INJECTIONS DONE IN RADIOLOGY Received [facility]) 07/29/19-r [facility] ([facility]) injections: 10/13/18, 12/06/18, 11/07/18 *REPORTS ONLY - NO IMAGING PER [facility] MRI In process 06/26/16 (L spine) * CT SCAN Received [facility] 09/20/18 (L spine)-r XRAYS (IMAGES & REPORTS) Received [facility] 06/12/19 (pelvis)-r TUMOR PATHOLOGY Slides & report N/A 09/16/19 1:26 PM [facility] can not push images, but can send a disc. Will not be here in time for the appointment. Will let care team know. Roseann Díaz CMA 09/16/19 8:32 AM 07/06/16 L-spine was done at [facility] Neuro per [facility] Called [facility] and Eliud for MRI to be pushed/disc Roseann Díaz CMA 09/15/19 SE 2:17 PM Called [facility] film room to request [facility] injection images, they are not there. Called [facility] directly. Called [place] [facility] [phone] 09/12/19 10:24 AM [facility] images resolved in PACS Called [facility] and requested images Roseann Díaz CMA 09/08/19 SE 3:38 PM [place]axed request to [email or web address] for images (after 15 minutes on hold with radiology) Faxed request to [facility] for 2016 L spine MRI Faxed request to [facility] (mentioned in previous notes with his [facility] providers) *[facility] and [facility] are both part of [facility], will see if they are able to push imaging. *Patient does not recall where 2016 MRI was done, tried [facility], but will need to try other options ifthat is not fruitful. ICIAN ASSISTANT PSYCHIATRY documented in this encounter Plan of Treatment Upcoming Encounters Date Type Department Care Team (Late st Contact Info) Description 02/19/2024 8:00 AM CDT Appointment [facility] [place] [address] [place] [phone] Kenan Black MD Vascular, Vein, and Wound [address] [facility] [facility] [address] [place] [address] 03/27/2024 8:30 AM CDT Office Visit [facility] [place] [address], [address] [place] [phone] Chucho Santizo MD [address] [place] [address] documented as of this encounter Visit Diagnoses Not on filedocumented in this encounter Additional Health Concerns Assessment Noted Time PHQ-9 Depression Total Score: 7 09/18/19 7:04 AM PHYSICIAN ASSISTANT PSYCHIATRY documented as of this encounter Care Teams Neonatal Icu Coordinator Relationship Specialty Start Date End Date Ben Cadena PCP - General Family Practice 09/04/19 Angel Mccormick MD Family Practice 09/04/19 Chucho Clement MD [facility] [place] [address] Orthopedics 09/04/19 Chucho Clement MD [address] [place] [address] Assigned Musculoskeletal Provider 05/14/20 03/19/21 Darion So MD [address] [place] [phone] Nephrology 12/09/20 Carolina Flanagan PA-C [address] [facility] [address] [place] [address] Assigned Surgical Provider 12/12/20 01/08/21 Guanaco Michael MD [address] [facility] [address] [place], [place] [address] Assigned Surgical Provider 12/05/20 12/11/20 Regis Lyons MD [address] [address] Assigned Surgical Provider 01/09/21 01/15/21 Carolina Flanagan PA-C [address] 055[address] Assigned Surgical Provider 01/16/21 08/20/21 Robert Boggs, PhD LP [address] [facility] [address] [place], [place] [address] Assigned Behavioral Health Provider 07/10/21 02/23/23 Milla Ramsay PA-C [facility] [address] [facility] [address] [place] [address] Assigned Gastroenterology Provider 08/21/21 09/24/21 Regis Lyons MD [address] 760[address] Assigned Surgical Provider 08/21/21 02/02/23 Gutierrez Guthrie DO [address], [address] [id number] Orthopaedic Surgery Foot and Ankle Surgery 02/05/23 Erick Lagunas MD [address] [place] [address] [address] Assigned Infectious Disease Provider 02/10/23 Azucena Billingsley APRN PET CARE ATTENDANT Assigned Pain Medication Provider 06/16/23 08/15/23 Azucena Billingsley APRN PET CARE ATTENDANT Assigned PCP 05/09/23 09/13/23 Azucena Billingsley APRN PET CARE ATTENDANT Assigned PCP 10/13/23 11/12/23 Chucho Santizo MD [address] [place] [address] Assigned Neuroscience Provider 10/05/23 Azucena Billingsley APRN PET CARE ATTENDANT Assigned PCP 09/14/23 10/12/23 [facility] [address] [place] [address] Assigned PCP 11/13/23 documented as of this encounter
== END 2024-02-07 06:58 | disposition home or self-care (01) ==
LOC: AMB 02-09 04:36
PROVIDERS: PCP Family Medicine; Visit Provider Family Medicine
DX: R06.09 Other forms of dyspnea (principal)
CPT/HCPCS: A0425; A0429

== ENCOUNTER 2024-06-27 07:05 | Outpatient (CLI) | payer MEDICAID, SELFPAY ==
--- OUTSIDE RECORDS SUMMARY | 2024-06-27 07:08 | XMS_ITS | Continuity of Care Document ---
Author Organization [facility] Address [address] [facility] [place] [address] Phone Care Team Providers Care Order Control Clerk Blood Bank Name Role Phone Will Alo PETTIT Unavailable [...] Diagnoses Date Provider Providers Copied on Encounter [facility], [address] [place], [place], [id number], tel:[phone] [facility] Jay No Information Dov Prajapati. [address] [facility] [place], [place], [id number] , [place]. tel:[phone] OFFICE CONSULTATION [facility], [address] [place], [place], [id number], [place] tel:[phone] [facility] low back pain (chief complaint) Low back painType 2 diabetes mellitus with diabetic neuropathy, unspChronic pain syndromeLong term (current) use of opiate analgesic 7 Rebekah Holland. [address] [facility] [place], [place], [id number] , [place]. tel:[phone] Referring Provider: [facility] [address] [facility] [address], [place], [address]. tel:[phone] Family History Family Member Type Diagnosis Age [...] failed gabapentin. Medical records:[facility]. Michael Fry at [facility]. Surinder at [facility] - PCP records [facility] treatment:Past medication: Functional Status Date Functional Assessmen t No Information Instructions Date Instruction Additional Infor mation No Information Assessments Type Assessment Date No Information Patient Care Teams Name Effective Dates (start - stop) Status Members No Information
--- OUTSIDE RECORDS SUMMARY | 2024-06-27 07:08 | XMS_ITS | Encounter Summary ---
Author Organization [facility] [place] Address [address] [place] [address] Care Team Providers Care Insole Tacker Name Role Phone Ben Cadena MD Primary Care Provider Encounter Details Date Type Department Care Team (Late st Contact Info) Description 06/16/2024 Telephone [facility] [address] [place] [address] Radhika Ahmadi, RN [address] [place] [address] Social History Tobacco Use Types Packs/Day Years Used Date Smoking Tobacco: Some Days Cigarettes 2 26 Started: 07/23/1979; Last attempted to quit: 07/23/2005 Cigars Smokeless Tobacco: Never Alcohol Use Standard Drinks/Week Comments Not Currently 1 (1 standard drink = 0.6 oz pur e alcohol) Per week Sex and Gender Information Value Date Recorded Sex Assigned at Not on file Legal Sex Male 10:30 AM EST Gender Identity Not on file Sexual Orientation Not on file documented as of this encounter Miscellaneous Notes * Telephone Encounter - Radhika Ahmadi RN - 06/16/2024 4:25 PM CST Images from the original note were not included. Re: 06/12 labs Darion So MD [facility] Clinical Pool Overall renal function is stable. Potassium is low. I will have him increase potassium in his diet.Repeat BMP in 1 month. If K still low, then will start supplement. Please send BMP to clinic where he does labs (I ordered it). Thanks. -Claus So MD Called pt and advised regarding provider message - pt verbalized understanding. Pt states he takes a K+ supplement every day but is unsure of the specific name or dosage. He will increase dietary intake of K. Pt advised of [facility] process - mailed lab order and [facility] pt. documented in this encounter Plan of Treatment Upcoming Encounters Date Type Department Care Team (Late st Contact Info) Description 07/13/2024 Orders Only [facility] [address] [place] [phone] Darion So MD [address] [place] [phone] Stage 3b chronic kidney disease (HCC); Hypokalemia 08/29/2024 8:30 AM TRANSPORT RN Office Visit [facility] [place] [address] [place] [address] Darion So MD [address] [place] [address] documented as of this encounter Visit Diagnoses Not on filedocumented in this encounter Care Teams Insole Tacker Relationship Specialty Start Date End Date Ben Cadena MD [address] [place] [address] PCP - General Family Medicine 09/05/23 documented as of this encounter
--- OUTSIDE RECORDS SUMMARY | 2024-06-27 07:08 | XMS_ITS | Clinical Summary ---
Author Organization [employer] [facility] Address [place], [place] [address] Care Team Providers Care Site Planner Name Role Phone Ben Cadena MD Primary Care Provider Edna Dickson MBBS Unavailable [phone] Renee Lopez Unavailable [phone] Leonor Martinez RN Unavailable Abril Dilalrd OPENSTACK DEVELOPER Unavailable Allergies Active Allergy Reactions Criticality Noted Date Comments Amlodipine Edema,Tongue Swelling High 08/09/2017 Edema on [...] Status aspirin (ECOTRIN) 81 mg enteric coated tabletIndications:myoca rdial infarction prevention Take 81 mg by mouth two times daily. 0 06/09/20 16 Active cyanocobalamin (VITAMIN B12) 1,000 mcg tabletIndications:preve ntion of vitamin B12 deficiency Take 1,000 mcg by mouth once daily. Active pyridoxine, vitamin B6, (VITAMIN B-6) 100 mg tablet Take 100 mg by mouth once daily. Active lancetsIndications:Unco ntrolled type 2 diabetes mellitus with complication, with long-term current use of insulin Test 3 times daily 200 Each 3 03/04/20 21 Active naloxone (Narcan) 4 mg/actuation nasal sprayIndications:RLS (restless legs syndrome) Inhale 1 Naoma into affected nostril(s) each time if needed for Patient Diff To Arouse or Resp Rate < 8 / min. Additional doses may be given every 2 to 3 minutes until emergency medical assistance arrives. 2 Each 02/23/20 22 Active cholecalciferol (VITAMIN D3) 2,000 unit capsuleIndications:Seco ndary renal hyperparathyroidism (HC) TAKE 1 CAPSULE BY MOUTH ONCE DAILY. 90 Capsule 2 03/30/20 23 Active blood sugar diagnostic (Ascensia CONTOUR) stripIndications:DM type 2 with diabetic peripheral neuropathy (HC) TEST 4 TIMES DAILY. 400 Each 3 07/29/19 24 Active DULoxetine (CYMBALTA) 30 mg Delayed-release capsuleIndications:Anxi ety and depression Take 1 Capsule (30 mg) by mouth once daily. 90 Capsule 3 08/10/19 24 Active levothyroxine (SYNTHROID) 125 mcg tabletIndications:Hypot hyroidism (acquired) Take 1 Tablet (125 mcg) by mouth before breakfast. 90 Tablet 3 08/10/19 24 Active triamcinolone 0.5% (ARISTOCORT) 0.5 % creamIndications:Venous stasis dermatitis of right lower extremity Apply topically to affected area(s) three times daily. 45 g 09/07/19 24 Active Additional Information Patient taking differently:TopicalTID PRN, Informant: Significant Other, Other Medical Records, Reported on 02/09/2024 atorvastatin (LIPITOR) 40 mg tabletIndications:Contr olled type 2 diabetes mellitus with complication, without long-term current use of insulin (HC) TAKE 1 TABLET (40 MG) BY MOUTH ONCE DAILY. 90 Tablet 2 09/24/19 24 Active transmitter (Evolva G6 Transmitter) for continuous blood glucose monitor (CGM)Indications:Type 2 diabetes mellitus with stage 3b chronic kidney disease, with long-term current use of insulin (HC) As directed. Change every 3 months 1 Each 3 10/29/19 24 Active potassium chloride (Klor-Con M20) 20 mEq extended-release tablet (part/cryst)Indications :Essential hypertension TAKE 1 TABLET (20 MEQ) BY MOUTH DAILY 90 Tablet 3 11/20/19 24 Active metOLazone (ZAROXOLYN) 2.5 mg tabletIndications:Nonis chemic cardiomyopathy (HC) TAKE TWO TABLETS BY MOUTH ON FRIDAYS 12 Tablet 01/03/20 24 Active rOPINIRole (REQUIP) 4 mg tabletIndications:Diabe tic peripheral neuropathy (HC),RLS (restless legs syndrome) Take 1 Tablet (4 mg) by mouth two times daily. 180 Tablet 1 01/09/20 24 Active sensor (Evolva G6 Sensor) for continuous blood glucose monitor (CGM)Indications:Type 2 diabetes mellitus with stage 3b chronic kidney disease, with long-term current use of insulin (HC) To be used to read blood sugars, follow switch box installer directions. Change sensor every 10 days. 9 Each 3 01/23/20 24 Active acetaminophen (TYLENOL EXTRA STRGTH) 500 mg tabletIndications:pain Take 3 tablets (1500 mg) by mouth in the morning and 2 tablets (1000 mg) by mouth in the evening. Max acetaminophen dose: 4000mg in 24 hrs. Active sennosides-docusate (Senokot-S) (8.6-50 mg) tabletIndications:const ipation Take 1 Tablet by mouth two times daily. Active nortriptyline (PAMELOR) 25 mg capsuleIndications:Diab etic peripheral neuropathy (HC),Anxiety and depression Take 1 Capsule (25 mg) by mouth at bedtime. 02/12/20 24 Active torsemide (DEMADEX) 20 mg tabletIndications:Essen tial hypertension Take 4 Tablets (80 mg) by mouth two times daily. 240 Tablet 02/12/20 24 Active dulaglutide (TRULICITY) 0.75 mg/0.5 mL subcutaneous penIndications:DM type 2 with diabetic peripheral neuropathy (HC) Inject 0.75 mg subcutaneous once weekly. 6 mL 1 02/14/20 24 Active Calcium Acetate (PHOS-LO) 667 mg capsuleIndications:Seco ndary renal hyperparathyroidism (HC) Take 1 Capsule (667 mg) by mouth two times daily with meals. 180 Capsule 3 02/15/20 24 Active pen needle (bd insulin pen needle uf mini) 31 gauge x 3/16 (disposable insulin pen needle)Indications:Cont rolled type 2 diabetes mellitus with complication, without long-term current use of insulin (HC) REMOVE THE 2 COVERS ON THE INSULIN PEN NEEDLE BEFORE ADMINISTERING INSULIN DOSE. 300 Each 3 02/24/20 24 Active pregabalin (LYRICA) 50 mg capsuleIndications:Diab etic peripheral neuropathy (HC),RLS (restless legs syndrome) TAKE 1 CAPSULE BY MOUTH TWO TIMES DAILY. 60 Capsule 5 02/24/20 24 Active wind energy systems installer (Dexcom G6 Production Leader) for continuous blood glucose monitor (CGM)Indications:Type 2 diabetes mellitus with complication, with long-term current use of insulin (HC) As directed. 1 Each 03/07/20 24 Active tirzepatide (Mounjaro) 5 mg/0.5 mL penIndications:DM type 2 with diabetic peripheral neuropathy (HC) Inject 5 mg subcutaneous once weekly. 2 mL 03/11/20 24 Active tirzepatide (Mounjaro) 7.5 mg/0.5 mL penIndications:DM type 2 with diabetic peripheral neuropathy (HC) Inject 7.5 mg subcutaneous once weekly. 2 mL 03/11/20 24 Active pen tirzepatide (Mounjaro) 10 mg/0.5 mL penIndications:DM type 2 with diabetic peripheral neuropathy (HC) Inject 10 mg subcutaneous once weekly. 2 mL 03/11/20 24 Active tirzepatide (Mounjaro) 12.5 mg/0.5 mL penIndications:DM type 2 with diabetic peripheral neuropathy (HC) Inject 12.5 mg subcutaneous once weekly. 2 mL 03/11/20 24 Active tirzepatide (Mounjaro) 15 mg/0.5 mL penIndications:DM type 2 with diabetic peripheral neuropathy (HC) Inject 15 mg subcutaneous once weekly. 2 mL 03/11/20 24 Active miscellaneous medical supply miscIndications:Below-k nee amputation of left lower extremity, subsequent encounter () As directed. Knee scooter with brakes for home use. 1 unit 03/11/20 24 Active allopurinoL (ZYLOPRIM) 300 mg tabletIndications:Gout, unspecified cause, unspecified chronicity, unspecified site Take 1 Tablet (300 mg) by mouth once daily. 90 Tablet 3 03/18/20 24 Active metoprolol succinate (TOPROL XL) 100 mg Sustained-Release tabletIndications:Acute on chronic systolic congestive heart failure (HC),Chronic systolic heart failure (HC),Nonischemic cardiomyopathy (HC),Sinus tachycardia TAKE 1 TABLET (100 MG) BY MOUTH ONCE DAILY. 90 Tablet 1 03/18/20 24 Active polyethylene glycol-electrolyte (GOLYTELY) 236-22.74-6.74 -5.86 gram suspensionIndications:A denomatous polyp of colon, unspecified part of colon Drink 2 liters (half the bottle) the day before colonoscopy and 2 liters (remaining prep) 6 hours prior to colonoscopy appointment. 4000 mL 03/21/20 24 Active tirzepatide (Mounjaro) 2.5 mg/0.5 mL penIndications:DM type 2 with diabetic peripheral neuropathy (HC) Inject 2.5 mg subcutaneous once weekly. 2 mL 05/15/20 24 Active insulin aspart, U-100, (NOVOLOG FLEXPEN) 100 unit/mL (3 mL) penIndications:Type 2 diabetes mellitus with stage 3b chronic kidney disease, with long-term current use of insulin (HC) INJECT 26 UNITS SUBCUTANEOUS BEFORE BREAKFAST, 24 UNITS BEFORE LUNCH, AND 30 UNITS BEFORE SUPPER. PLUS SLIDING SCALE UP TO 100 UNITS DAILY 90 mL 05/25/20 24 Active insulin degludec, U-100, (Tresiba FlexTouch U-100) 100 unit/mL (3 mL) penIndications:Type 2 diabetes mellitus with stage 3b chronic kidney disease, with long-term current use of insulin (HC) Inject 50 units subcutaneous every morning, 40 units in the evening. 06/12/20 24 Active pantoprazole (PROTONIX) 40 mg delayed-release tabletIndications:Gastr oesophageal reflux disease, unspecified whether esophagitis present Take 1 Tablet (40 mg) by mouth once daily. 90 Tablet 3 06/19/20 24 Active pantoprazole (PROTONIX) 40 mg delayed-release tabletIndications:Gastr oesophageal reflux disease, unspecified whether esophagitis present TAKE 1 TABLET (40 MG) BY MOUTH ONCE DAILY. 90 Tablet 2 09/24/19 24 024 Discontin ued(Reord er (E-cancel not sent)) insulin degludec, U-100, (Tresiba FlexTouch U-100) 100 unit/mL (3 mL) penIndications:Type 2 diabetes mellitus with stage 3b chronic kidney disease, with long-term current use of insulin (HC) Inject 110 units subcutaneous every morning. 102 mL 1 10/29/19 24 024 Discontin ued(*Medi cation adjustmen t) Active Problems Patient Care Coordination No te Formatting of this note migh t be different from the original. HF/Structural Research Eligibility Review Date: 03/11/19 Age: 58 y.o. Insurance: [employer] Etiology: Mixed EF: 40 02/07/19 LVID:5.6 Valve/Imaging: no significant disease NYHA: II to III BNP: 153 03/29/18 Last HF admit: 01/07/18 Devices: SPECIFICATION MANAGER-D Comments: JEANINE, DM, HF: FID: No recent BNP or Hosp Guide-HF:No recent BNP or Hosp Reduce LAP:EXCLUDED REDUCE LA 3.9.cm Accucinch 5017: no d/t kidney disease Structural Alt Bart:No recent BNP/hosp/or Problem Noted Date Diagnosed Date Primary osteoarthritis of right knee 05/01/2024 CKD (chronic kidney disease) stage 4, GFR 15-29 ml/min 02/15/2024 JEANINE (acute kidney injury) 02/09/2024 SVT (supraventricular tachycardia) 02/09/2024 Acute hypoxic respiratory failure 02/07/2024 Type 2 diabetes mellitus wit h hyperosmolarity without nonketotic hyperglycemic-hyperosmolar coma (NKHHC) 07/26/2023 HFrEF (heart failure with reduced ejection fract ion) 09/04/2022 Tremulousness 02/17/2022 Buprenorphine adverse reaction 02/17/2022 Adenomatous colon polyp 08/17/2020 Overview (08/17/2020): Colonoscopy 07/2020 1 cm polyp, repeat in 3 years Controlled substance agreement signed 04/20/2020 Overview (04/20/2020): Signed 04/20/[address] [facility] Radha Archer .................... 04/20/2020 2:55 PM Stage [...] branch block) Coronary artery disease invo lving nulato coronary artery without angina pectoris DM type 2 with diabetic peripheral neuropathy Resolved Problems Problem Noted Date Diagnosed Date Resolved Date Acute hypoxemic respiratory failure 02/09/2024 03/11/2024 Hallucinations 06/28/2023 03/11/2024 Encephalopathy 06/28/2023 03/11/2024 Altered mental status 06/28/20232023 Altered behavior 02/17/2022 09/04/2022 Confusion 02/17/2022 09/04/2022 [...] insulin 06/09/2016 04/18/2017 Acute kidney injury 10/30/19 NSTEMI (non-ST elevated myoc ardial infarction) 10/14/2018 Nonischemic cardiomyopathy 0 09/04/2022 Alcohol use disorder 023 Encounters Date Type Department Care Team Description 06/26/2024 10:00 AM STEAMER GUM CANDY Patient Outreach [facility] Care Management - Advanced Care Team [address] [place] [address] Leonor Martinez, parks worker Kidney Disease (monthly follow up) 06/22/2024 Travel 06/21/2024 Travel 06/17/2024 Refill [facility] [address] [place] [address] Ben Cadena MD Refill Request (Pantoprazole) 06/16/2024 9:00 AM STEAMER GUM CANDY Patient Outreach [facility] - Advanced Care Team [address] [place] [address] Abril Dillard LICSW Chronic Kidney Disease 06/16/2024 Refill [facility] [address] [place] [address] Ben Cadena MD Refill Request (Mounjaro & Pantoprazole ) 06/16/2024 Travel 06/12/2024 8:45 AM STEAMER GUM CANDY Orders Only [address] [address] [place] Lab 06/12/2024 8:05 AM STEAMER GUM CANDY Office Visit [address] [address] Ben Cadena MD Preoperative Exam (DOS: 06/27/2024, colonoscopy, [facility], Dr. Valentino); ER Follow up ([facility] ER, 06/08/2024, fall, injury to left leg) 06/11/2024 Travel 06/11/2024 Patient Outreach [facility] - Advanced Care Team [address] [place] [phone] Leonor Martinez, parks worker Kidney Disease (post ED visit) 06/08/2024 5:36 PM STEAMER GUM CANDY - 06/08/2024 6:51 PM STEAMER GUM CANDY Emergency [facility] [address] [place] [address] Femi Amor PA Superficial laceration of knee (Primary Dx) Discharge Disposition: Home Self Care 06/08/2024 Travel 06/07/2024 Travel 06/05/2024 10:30 AM STEAMER GUM CANDY Office Visit [facility] [address] [place] [address] Robert Dominguez PsyD, Mental Health Intake 06/05/2024 Travel 05/28/2024 9:30 AM STEAMER GUM CANDY Patient Outreach [facility] - Advanced Care Team [address] [place] [address] Leonor Martinez RN Chronic Kidney Disease (monthly follow up) 05/27/2024 Travel 05/22/2024 Refill [facility] [address] [facility] [address] [place] [address] Renee Lopez PA Refill Request (Insulin Aspart (U-100)) 05/19/2024 Orders Only [facility] Scanner 1 scan: (1-Ord) [facility], NEW IPG IMPLANT, 05/19/2024 05/19/2024 Telephone [facility] [address] [place] [address] Ben Cadena MD Prior Authorization (tirzepatide (Mounjaro) 2.5 mg/0.5 mL pen Approved 05/19/24-05/19/25) 05/16/2024 9:00 AM CDT Patient Outreach [facility] - Advanced Care Team [address] [place] [address] Abril Dillard, [facility] Chronic Kidney Disease 05/16/2024 Telephone [facility] [address] [place] [address] Ben Cadena MD 05/16/2024 Travel 05/15/2024 9:20 AM CDT Office Visit [facility] [address] [place] [address] Ben Cadena MD Pre-Op Exam (DOS: 05/19/2024, spine cord stimulator replacement, [facility]) 05/14/2024 Travel 05/12/2024 9:00 AM CDT Office Visit [facility] [address] [place] [address] Liz Francisco [facility] Mental Health Consultants Visit 05/12/2024 Travel 05/09/2024 Travel 05/08/2024 10:30 AM CDT Patient Outreach [facility] Care [facility] - Advanced Care Team [address] [place] [address] Abril Dillard LICSW Chronic Kidney Disease 05/08/2024 Travel 05/04/2024 Travel 05/01/2024 7:40 AM CDT Office Visit [facility] [address] [place] [address] Ben Cadena MD ER Follow up (ANW, 04/24/2024, difficulty breathing) 04/30/2024 Travel 04/28/2024 Patient Outreach [facility] - Advanced Care Team [address] [place] [phone] Leonor Martinez RN Chronic Kidney Disease (Post hospitalization) 04/24/2024 1:20 PM CDT - 04/24/2024 7:18 PM CDT Emergency [facility] Emergency Department [address] [place] [address] Charlene Moeller DO Cough, unspecified type (Primary Dx) Discharge Disposition: Home Self Care 04/24/2024 11:30 AM CDT Ancillary Procedure [facility] [address] [place] [address] 04/24/2024 11:05 AM CDT Office Visit [facility] [address] [place] [address] Danette Munson PA URI 04/24/2024 Patient Outreach [facility] - Advanced Care Team [address] [place] [address] Abril Dillard LICSW Chronic Kidney Disease 04/24/2024 Travel 04/22/2024 9:00 AM CDT Ancillary Procedure [facility] [address] [place] [address] 04/21/2024 11:20 AM CDT Office Visit [facility] [address] [place] [address] Ben Cadena MD Leg Pain/problem (Lower right leg, swelling, welts, discoloration, started about a week ago); Lab 04/21/2024 Telephone [facility] [address] [place] [address] Ben Cadena MD Follow Up 04/21/2024 Travel 04/18/2024 Telephone [facility] - Advanced Care Team [address] [place] [address] Abril Dillard [facility] Chronic Kidney Disease 04/14/2024 Patient Outreach [facility] - Advanced Care Team [address] [place] [address] Leonor Martinez RN Chronic Kidney Disease (Coordination of care ) 04/11/2024 Telephone [facility] [address] [place] [address] Ben Cadena MD Referral (foot turned black) 04/11/2024 Patient Outreach [facility] - Advanced Care Team [address] [place] [address] Abril Dillard [facility] Chronic Kidney Disease 04/10/2024 Patient Outreach [facility] - Advanced Care Team [address] [place] [address] Abril Dillard [facility] Chronic Kidney Disease 04/02/2024 10:00 AM CDT Patient Outreach [facility] - Advanced Care Team [address] [place] [phone] Leonor Martinez, parks worker Kidney Disease (Monthly follow up) 03/30/2024 Travel from Last 3 Months Immunizations Name Administration Dates Next Due Hepatitis B (Adult) 05/15/2024,03/11/2024 Pneumococcal Conj 20-valent (Prevnar 20) 024 Tdap 02/12/2020 Zoster (Shingrix-RZV, recombinant) 09/18/2018, Family History Medical History Relation Name Comments Diabetes Father COPD Mother Kidney disease Paternal Grandmother Friedreich's ataxia Sister Anesthesia Problem No Family History Relation Name Status Comments Father Alive Mother Alive Paternal Grandmother Sister Alive Social History Tobacco Use Types Packs/Day Years Used Date Smoking Tobacco: Former Cigarettes 2 26 1 980 - 2006 Smokeless Tobacco: Never Tobacco Cessation:Counseling Given: No Alcohol Use Standard Drinks/Week Comments Yes 0 (1 standard drink = 0.6 oz pur e alcohol) 1 to 2 drinks per week PHQ-2 Answer Date Recorded PHQ-2 TOTAL SCORE 1 06/05/2024 Social Connections Answer Date Recorded Do you often feel lonely or isolated from those around you? 0 03/04/2024 Financial Resource Strain Answer Date R ecorded Difficulty of Paying Living Expenses 3 06/29/2023 Difficulty of Paying Living Expenses Not on file 06/29/2023 Food Insecurity Answer Date Recorded Do you worry your food will run out before you are able to buy more? 1 03/04/2024 Transportation Needs Answer Date Record ed Does lack of transportation keep you from medica l appointments? 1 03/04/2024 Does lack of transportation keep you from work, meetings or getting things that you need? 1 03/04/2024 Housing Stability Answer Date Recorded What is your housing situation today? 1 03/04/2024 Sex and Gender Information Value Date Recorded Sex Assigned at Not on file Gender Identity Not on file Sexual Orientation Not on file Obstetrics History Last Filed Vital Signs Vital Sign Reading Time Taken Comments Blood Pressure 98/56 06/12/2024 7:57 AM STEAMER GUM CANDY Pulse 84 06/12/2024 7:57 AM STEAMER GUM CANDY Temperature 36.4 C (97.5 F) 06/08/2024 5:40 PM STEAMER GUM CANDY Respiratory Rate 18 06/08/2024 5:40 PM STEAMER GUM CANDY Oxygen Saturation 95% 06/12/2024 7:57 AM STEAMER GUM CANDY Inhaled Oxygen Concentration - - Weight 129.8 kg (286 lb 3.2 oz) 06/12/2024 7:57 AM STEAMER GUM CANDY Height 165.1 cm (5' 5) 06/12/2024 7:57 AM STEAMER GUM CANDY Body Mass Index 47.63 06/12/2024 7:57 AM STEAMER GUM CANDY Plan of Treatment Upcoming Encounters Date Type Department Care Team (Late st Contact Info) Description 06/27/2024 7:15 AM STEAMER GUM CANDY Office Visit [facility] at [facility] [address] [place] [address] Jonnie Valentino MD [address] [place] [address] 07/10/2024 10:30 AM STEAMER GUM CANDY Office Visit [facility] [address] [place] [facility] [place] [phone] Robert Dominguez PsyD, BERNADETTE [address] [place] [address] 07/14/2024 9:30 AM STEAMER GUM CANDY Patient Outreach [facility] Management - Advanced Care Team [address] [place] [address] Abril Dillard, MADIE [address] [place] [address] 07/14/2024 2:15 PM STEAMER GUM CANDY Nurse/Clinic Staff Only [place] [address] [place] [address] 07/15/2024 7:30 AM STEAMER GUM CANDY Nurse/Clinic Staff Only [place] [address] [place] [address] 07/24/2024 3:00 PM STEAMER GUM CANDY Appointment [address] [address] Karma Saba, OT [address] [address] 07/31/2024 10:00 AM STEAMER GUM CANDY Office Visit [facility] [address] [place] [phone] Robert Dominguez PsyD, BERNADETTE [address] [place] [address] 08/18/2024 8:00 AM STEAMER GUM CANDY Office Visit [facility] [address] [place] [address] Cleveland Massey MD [address] [place] [address] 09/02/2024 8:30 AM STEAMER GUM CANDY Cardiac Device Check [facility] [place] [facility] [address] [place] [phone] 09/04/2024 8:00 AM STEAMER GUM CANDY Orders Only [facility] [address] [place] [address] [place] 09/11/2024 7:40 AM STEAMER GUM CANDY Office Visit [facility] [address] [place] [address] Ben Cadena MD [address] [place] [address] 10/14/2024 Cardiac Device Check [facility] [phone] Health Maintenance Due Date Last Done Comments COVID-19 vaccine series ( season) 2024 11/05/2020, 10/08/2020 Influenza for age 50-64 03/23/[address] (for lung CA) ag e 50-80 02/06/2025 02/07/2024 Depression screening for age 12+ 06/08/2025 06/08/2024, 06/05/2024, 03/04/2024, Additional history exists BMI (ht and wt on same day) for age 18+ 06/12/2025 06/12/2024, 05/15/2024, 10/09/2023, Additional history exists Lipids for age 45-75 04/21/2029 04/21/2024, 09/07/2023, 09/04/2022, Additional history exists Tetanus booster 02/11/2030 02/12/2020 Colonoscopy through age 75 08/16/2030 08/16/2020, Hepatitis C screening for ag e 18-79 Completed 06/30/2016 Zoster (shingles) series for age 50+ Completed 09/18/2018, 07/26/2018 Tdap Completed 02/12/2020 HIV for age 15-65 Completed 09/04/2022 Pneumococcal series for age 6-64 Completed 03/11/20 24 Procedures Procedure Name Priority Date/Time Associated Diagnosis Comments IRON PLUS IRON BINDING CAP Routine 06/12/2024 8:49 AM STEAMER GUM CANDY Iron deficiency anemia, unspecified iron deficiency anemia type HEMOGLOBIN Routine 06/12/2024 8:49 AM STEAMER GUM CANDY Iron deficiency anemia, unspecified iron deficiency anemia type FERRITIN Routine 06/12/2024 8:49 AM STEAMER GUM CANDY Iron deficiency anemia, unspecified iron deficiency anemia type SCAN-OPERATIVE/PROCE DURE REPORT 05/19/2024 12:00 AM CDT BASIC METABOLIC PANEL Routine 05/15/2024 10:10 AM CDT CKD stage 3b, GFR 30-44 ml/min (HC) TROPONIN T (HS) ONE TIME Timed 04/24/2024 5:51 PM CDT D-DIMER,QUANTITATIVE STAT 04/24/2024 4:08 PM CDT EKG 12 LEAD STAT 04/24/2024 3:52 PM CDT TROPONIN T (HS) ACUTE W/2HR REFLEX PATRICIA 04/24/2024 2:20 PM CDT CBC WITH AUTO DIFFERENTIAL STAT 04/24/2024 2:20 PM CDT BASIC METABOLIC PANEL STAT 04/24/2024 2:20 PM CDT CBC WITH AUTO DIFFERENTIAL STAT 04/24/2024 2:20 PM CDT PRO-BNP STAT 04/24/2024 2:20 PM CDT COVID-19 MOLECULAR Today 04/24/2024 1: 17 PM CDT XR CHEST 2 VIEWS PA AND LATERAL STAT 04/24/2024 11:36 AM CDT Acute cough SOB (shortness of breath) Wheezing History of chronic CHF History of pneumonia US VENOUS LOWER EXTREMITY RIGHT Routine 04/22/2024 9:09 AM CDT Right leg swelling VITAMIN B12 Routine 04/21/2024 11:59 AM CDT B12 deficiency TSH WITH REFLEX Routine 04/21/2024 11:59 AM CDT Hypothyroidism (acquired) LIPID PANEL W REFLEX MEASURED LDL Routine 04/21/2024 11:59 AM CDT DM type 2 with diabetic peripheral neuropathy (HC) CT CHEST PE STUDY STAT 02/07/2024 2:4 0 PM CDT LC HIV-1/O/2, 4TH GENERATION Routine 09/04/2022 9:18 AM STEAMER GUM CANDY Screening for HIV (human immunodeficiency virus) COLONOSCOPY SCREENING Routine 08/16/2020 12:00 AM STEAMER GUM CANDY Positive occult stool blood test ANTI HCV Routine 06/30/2016 8:46 AM STEAMER GUM CANDY Chronic low back pain Diabetic peripheral neuropathy (HC) from Last 3 Months or Most Recently Relevant to Health Maintenance Results * IRON PLUS IRON BINDING CAP (06/12/2024 8:49 AM STEAMER GUM CANDY) [facility] [address] IRON, TOTAL 121 50 - 180 mcg/dL [facility] IRON BINDING CAPACITY 318 250 - 425 mcg/dL (calc) [facility] % SATURATION 38 20 - 48 % (calc) [facility] Blood BLOOD SPECIMEN / Unknown 06/12/2024 8:49 AM STEAMER GUM CANDY 06/12/2024 8:50 AM STEAMER GUM CANDY Ben Cadena MD CHEMISTRY Monstrous [facility] [address] [place] [address], [facility] [address] [place] [address] * HEMOGLOBIN (06/12/2024 8:49 AM STEAMER GUM CANDY) Pathologist [facility] HEMOGLOBIN 15.7 13.2 - 17.1 g/dL [facility] Blood BLOOD SPECIMEN / Unknown 06/12/2024 8:49 AM STEAMER GUM CANDY 06/12/2024 8:50 AM STEAMER GUM CANDY Ben Cadena MD HEMATOLOGY Performing Organization Address City/[facility]/ZIP Co de Phone Number Monstrous [facility] [address] [place] [address], [facility] [address] [place] [address] * FERRITIN (06/12/2024 8:49 AM STEAMER GUM CANDY) [facility] [address] [facility] FERRITIN 25 24 - 380 ng/mL [facility] Blood BLOOD SPECIMEN / Unknown 06/12/2024 8:49 AM STEAMER GUM CANDY 06/12/2024 8:50 AM STEAMER GUM CANDY Ben Cadena MD CHEMISTRY Performing Organization Address [facility]/ZIP Co de Phone Number Monstrous [facility] [address] [place] [address], [facility] [address] [place] [address] * SCAN-OPERATIVE/PROCEDURE REPORT (05/19/2024 12:00 AM CDT) Scanner OTHER * (ABNORMAL) BASIC METABOLIC PANEL (05/15/2024 10:10 AM CDT) Only the most recent of2 resultswithin the time period is included. [facility] [address] GLUCOSE 324(H) 65 - 99 mg/dL [facility] Comment: Fasting reference interval For someone without known diabetes, a glucose value >125 mg/dL indicates that they may have diabetes and this should be confirmed with a follow-up test. UREA NITROGEN (BUN) 38(H) 7 - 25 mg/dL [facility] CREATININE 1.79(H) 0.70 - 1.35 mg/dL [facility] EGFR 42(L) > OR = 60 mL/min/1.7 3m2 [facility] BUN/CREATININE RATIO 21 6 - 22 (calc) [facility] SODIUM 140 135 - 146 mmol/L [facility] POTASSIUM 3.7 3.5 - 5.3 mmol/L [facility] CHLORIDE 99 98 - 110 mmol/L [facility] CARBON DIOXIDE 34(H) 20 - 32 mmol/L [facility] ELECTROLYTE BALANCE 7 7 - 17 mmol/L (calc) [facility] CALCIUM 9.2 8.6 - 10.3 mg/dL [facility] Blood BLOOD SPECIMEN / Unknown 05/15/2024 10:10 AM CDT 05/15/2024 10:10 AM CDT Ben Cadena MD CHEMISTRY Monstrous [facility] [address] [place] [address], [place] [phone] [facility] [address] [place] [address] * (ABNORMAL) TROPONIN T (HS) ONE TIME (04/24/2024 5:51 PM CDT) TROPONIN T HS 37(H) 6-15 ng/L ng/L 04/24/2024 6:38 PM CDT [facility] Blood BLOOD SPECIMEN / Unknown Non-Lab Venipuncture / Unknown 04/24/2024 5:51 PM CDT 04/24/2024 6:01 PM CDT Charlene Moeller DO CHEMISTRY [facility] [address] [place] [address], [place] * D-DIMER,QUANTITATIVE (04/24/2024 4:08 PM CDT) Pathologist [facility] D-DIMER,QUANTI TATIVE 0.56 See comment FEU mcg/mL 04/24/2024 4:38 PM CDT [facility] Blood BLOOD SPECIMEN / Unknown Non-Lab Venipuncture / Unknown 04/24/2024 4:08 PM CDT 04/24/2024 4:21 PM CDT Narrative [facility] - 04/24/2024 4:38 PM CDT The cut off value for exclusion of Deep Vein Thrombosis and / or Pulmonary Embolism is 0.50 FEU mcg/mL For patients greater than 50 years of age the upper limit is age dependent and was calculated with the formula: (PATIENT AGE x 0.01) FEU mcg/mL = Upper limit of normal range Charlene Moeller DO HEMATOLOGY [facility] [address] [place] [address], * EKG 12 LEAD (04/24/2024 3:52 PM CDT) Pathologist [facility] Interpretation Atrial-sensed ventricular-p aced rhythm with Premature atrial complexes with Aberrant conduction Biventricular pacemaker detected Abnormal ECG no STEMI BEYOND NOW Ventricular Rate 79 BPM BEYOND NOW Atrial Rate 79 BPM BEYOND NOW P-R Interval 148 ms BEYOND NOW QRS Duration 164 ms BEYOND NOW QT 464 ms BEYOND NOW QTc 532 ms BEYOND NOW P Flippin 64 degrees BEYOND NOW R Flippin 178 degrees BEYOND NOW T Flippin 60 degrees BEYOND NOW 04/24/2024 3:52 PM CDT 04/25/2024 7:49 AM CDT Charlene Moeller DO EKG ORD BEYOND NOW [place], [place] * (ABNORMAL) TROPONIN T (HS) ACUTE W/2HR REFLEX (04/24/2024 2:20 PM CDT) [facility] [address] [facility] TROPONIN T HS 41(H) 6-15 ng/L ng/L 04/24/2024 4:00 PM CDT [facility] Blood BLOOD SPECIMEN / Unknown Butterfly / Unknown 04/24/2024 2:20 PM CDT 04/24/2024 2:36 PM CDT Narrative [facility] - 04/24/2024 4:00 PM CDT hs-cTnT (Elecsys Troponin T Gen 5) [...] department patient population. Charlene Moeller DO CHEMISTRY [facility] [address] [place] [address], [place] * (ABNORMAL) CBC WITH AUTO DIFFERENTIAL (04/24/2024 2:20 PM CDT) [facility] [address] [facility] WHITE BLOOD COUNT 8.3 4.5 - 11.0 thou/cu mm 04/24/2024 2:49 PM CDT [facility] RED BLOOD COUNT 4.13(L) 4.30 - 5.90 mil/cu mm 04/24/2024 2:49 PM CDT [facility] HEMOGLOBIN 13.6 13.5 - 17.5 g/dL 04/24/2024 2:49 PM CDT [facility] HEMATOCRIT 41.5 37.0 - 53.0 % 04/24/2024 2:49 PM CDT [facility] MCV 101(H) 80 - 100 fL 04/24/2024 2:49 PM CDT [facility] MCH 32.9 26.0 - 34.0 pg 04/24/2024 2:49 PM CDT [facility] MCHC 32.8 32.0 - 36.0 g/dL 04/24/2024 2:49 PM CDT [facility] RDW 15.3 11.5 - 15.5 % 04/24/2024 2:49 PM CDT [facility] PLATELET COUNT 147 140 - 440 thou/cu mm 04/24/2024 2:49 PM CDT [facility] MPV 9.5 6.5 - 11.0 fL 04/24/2024 2:49 PM CDT [facility] NRBC 0.0 % 04/24/2024 2:49 PM CDT [facility] ABS NRBC 0.0 thou /cu mm 04/24/2024 2:49 PM CDT [facility] % NEUT 62.3 % 04/24/2024 2:49 PM CDT [facility] % LYMPH 25.8 % 04/24/2024 2:49 PM CDT [facility] % MONO 6.9 % 04/24/2024 2:49 PM CDT [facility] % EOS 3.6 % 04/24/2024 2:49 PM CDT [facility] % BASO 0.7 % 04/24/2024 2:49 PM CDT [facility] % IMMATURE GRAN (METAS,MYELOS,NY OS) 0.7 % 04/24/2024 2:49 PM CDT [facility] ABSOLUTE NEUTROPHILS 5.2 1.7 - 7.0 thou/cu mm 04/24/2024 2:49 PM CDT [facility] ABSOLUTE LYMPHOCYTES 2.1 0.9 - 2.9 thou/cu mm 04/24/2024 2:49 PM CDT [facility] ABSOLUTE MONOCYTES 0.6 <0.9 thou/cu mm 04/24/2024 2:49 PM CDT [facility] ABSOLUTE EOSINOPHILS 0.3 <0.5 thou/cu mm 04/24/2024 2:49 PM CDT [facility] ABSOLUTE BASOPHILS 0.1 <0.3 thou/cu mm 04/24/2024 2:49 PM CDT [facility] ABSOLUTE IMMATURE GRANULOCYTES(MET ,MYELOS,PROS) 0.1 <0.3 thou/cu mm 04/24/2024 2:49 PM CDT [facility] Blood BLOOD SPECIMEN / Unknown Butterfly / Unknown 04/24/2024 2:20 PM CDT 04/24/2024 2:36 PM CDT Anw Ed Triage [facility]OLOGY [facility] [address] [place] [address], * (ABNORMAL) PRO-BNP (04/24/2024 2:20 PM CDT) PRO-BNP 135(H) <125 pg/mL 04/24/2024 3:17 PM CDT [facility] Blood BLOOD SPECIMEN / Unknown Butterfly / Unknown 04/24/2024 2:20 PM CDT 04/24/2024 2:36 PM CDT Narrative [facility] - 04/24/2024 3:17 PM CDT The following cut-points have been suggested for the use of proBNP for the diagnostic evaluation of heart failure (HF) in patient with acute dyspnea. Patients with eGFR >= 60 Diagnosis (rule in CHF) <50 Years Old 450 pg/mL 50 - 75 Years Old 900 pg/mL >75 Years Old 1800 pg/mL Exclusion (rule out CHF) Age Independent 300 pg/mL A cutoff of 1200 pg/mL for patients with an eGFR <60 yields a diagnostic sensitivity of 89% and specificity of 72% for acute congestive heart failure. An Ed Triage SEND OUTS Performing Organization Address [facility] de Phone Number [facility] [address] [place] [address] * COVID-19 MOLECULAR (04/24/2024 1:17 PM CDT) [facility] [address] [facility] COVID 19 [facility] MOLECULAR Negative Negative 04/24/2024 2:52 PM CDT [facility] Comment:All PCR tests are pang bject to false negative result due to variability in viral load and collection technique. A negative result does not rule out a SARS-CoV-2 infection. Clinical correlation required. TESTING LABORATORY [facility] 04/24/2024 2:52 PM CDT [facility] Comment:Specimen submitted t o [facility] for testing. Other SPECIMEN FROM NASOPHARYNGEAL STRUCTURE / Unknown Non-Blood / Unknown 04/24/2024 1:17 PM CDT 04/24/2024 1:36 PM CDT Anw Ed Triage MICROBIOLOGY [facility] [address] [place] [address], [place] * XR CHEST 2 VIEWS PA AND LATERAL (04/24/2024 11:36 AM CDT) Anatomical Region Laterality Modality CHEST, THORAX, Lung, HEART Compu pati Radiography 04/24/2024 12:0 8 PM CDT Narrative 04/24/2024 12:08 PM CDT For Patients: As a result of the Cures Act, medical imaging exams and procedure reports are released immediately into your electronic medical record. You may view this report before your referring provider. If you have questions, please contact your health care provider. Indication: Acute cough and shortness of breath Technique: Chest 2 views Comparison: Chest x-ray 02/12/2024 Findings/Impression: Cardiovascular and mediastinum: Normal heart size with right-sided tripolar pacemaker with leads in the expected right atrium right ventricle and coronary sinus. Lungs and pleural spaces: Lungs are clear. No sign of infiltrate or mass. No sign of pleural effusion. No pneumothorax. Bones and soft tissues: Posterior spinal catheters with tips at the midthoracic spine. Dictated by Naren Vázquez MD @ 04/24/2024 12:08:23 PM (Electronically Signed) Procedure Note Naren Vázquez MD - 04/24/2024 For Patients: As a result of the Cures Act, medical imagingexams and procedure reports are released immediately into your electronicmedical record. You may view this report before your referring provider.If you have questions, please contact your health care provider. Indication: Acute cough and shortness of breath Technique: Chest 2 views Comparison: Chest x-ray 02/12/2024 Findings/Impression: Cardiovascular and mediastinum: Normal heart size with right-sidedtripolar pacemaker with leads in the expected right atrium right ventricleand coronary sinus. Lungs and pleural spaces: Lungs are clear. No sign of infiltrate ormass. No sign of pleural effusion. No pneumothorax. Bones and soft tissues: Posterior spinal catheters with tips at themidthoracic spine. Dictated by Naren Vázquez MD @ 04/24/2024 12:08:23 PM (Electronically Signed) [facility] * US VENOUS LOWER EXTREMITY RIGHT (04/22/2024 9:09 AM CDT) Anatomical Region Laterality Modality LEGS, LEG R, Abdomen Ultrasound 04/22/2024 1:59 PM CDT Impressions 04/22/2024 1:59 PM CDT Normal right lower extremity venous ultrasound, no sign of deep venous thrombosis. Dictated by Chente Rowell MD @ 04/22/2024 1:59:27 PM (Electronically Signed) Narrative 04/22/2024 1:59 PM CDT For Patients: As a result of the Cures Act, medical imaging exams and procedure reports are released immediately into your electronic medical record. You may view this report before your referring provider. If you have questions, please contact your health care provider. INDICATION: Right leg swelling TECHNIQUE: Ultrasound venous duplex lower right extremity. Compression venous exam was performed using alexandra-scale, color Doppler, and spectral Doppler imaging. COMPARISON: None FINDINGS: Sonographic imaging demonstrates the right common femoral, deep femoral, superficial femoral, popliteal, posterior tibial and greater saphenous and the contralateral left common femoral veins to be fully compressible with normal color Doppler blood flow. Procedure Note Chente Rowell MD - 04/22/2024 For Patients: As a result of the Cures Act, medical imagingexams and procedure reports are released immediately into your electronicmedical record. You may view this report before your referring provider.If you have questions, please contact your health care provider. INDICATION: Right leg swelling TECHNIQUE: Ultrasound venous duplex lower right extremity. Compression venous examwas performed using alexandra-scale, color Doppler, and spectral Dopplerimaging. COMPARISON: None FINDINGS: Sonographic imaging demonstrates the right common femoral, deep femoral,superficial femoral, popliteal, posterior tibial and greater saphenous andthe contralateral left common femoral veins to be fully compressible withnormal color Doppler blood flow. IMPRESSION: Normal right lower extremity venous ultrasound, no sign of deep venousthrombosis. Dictated by Chente Rowell MD @ 04/22/2024 1:59:27 PM (Electronically Signed) Ben Cadena MD [place] * TSH WITH REFLEX (04/21/2024 11:59 AM CDT) TSH W/REFLEX TO FT4 1.69 0.40 - 4.50 mIU/L [facility] Blood BLOOD SPECIMEN / Unknown 04/21/2024 11:59 AM CDT 04/21/2024 11:59 AM CDT Ben Cadena MD CHEMISTRY Monstrous [facility] [address] [place] [address], [facility] [address] [place] [address] * (ABNORMAL) LIPID PANEL W REFLEX MEASURED LDL (04/21/2024 11:59 AM CDT) CHOLESTEROL, TOTAL 106 <200 mg/dL [facility] HDL CHOLESTEROL 30(L) > OR = 40 mg/dL [facility] TRIGLYCERIDES 370(H) <150 mg/dL [facility] Comment: If a non-fasting specimen was collected, consider repeat triglyceride testing on a fasting specimen if clinically indicated. Lisa et al. J. of Clin. Lipidol. 2015;9:129-169. LDL-CHOLESTEROL 37 mg/dL (calc) [facility] Comment: Reference range: <100 Desirable range <100 mg/dL for primary prevention; <70 mg/dL for patients with CHD or diabetic patients with > or = 2 CHD risk factors. LDL-C is now calculated using the Jonnie-Ryan calculation, which is a validated novel method providing better accuracy than the Friedewald equation in the estimation of LDL-C. Jonnie SALDANA et al. ALANA. 2013;310(19): 7026-9429 (http://education.NextGen Platform.Media Machines/faq/CNB740) CHOL/HDLC RATIO 3.5 <5.0 (calc) [facility] NON HDL CHOLESTEROL 76 <130 mg/dL (calc) [facility] Comment: For patients with diabetes plus 1 major ASCVD risk factor, treating to a non-HDL-C goal of <100 mg/dL (LDL-C of <70 mg/dL) is considered a therapeutic option. Blood BLOOD SPECIMEN / Unknown 04/21/2024 11:59 AM CDT 04/21/2024 11:59 AM CDT Ben Cadena MD CHEMISTRY Monstrous [facility] [address] [place] [address], [place] [phone] [facility] [address] [place] [address] * (ABNORMAL) VITAMIN B12 (04/21/2024 11:59 AM CDT) VITAMIN B12 1,283(H) 200 - 1,100 pg/mL [facility] Blood BLOOD SPECIMEN / Unknown 04/21/2024 11:59 AM CDT 04/21/2024 11:59 AM CDT Ben Cadena MD CHEMISTRY Performing Organization Address [facility]/ZIP Co de Phone Number Monstrous [facility] [address] [place] [address], [place] [phone] [facility] [address] [place] [address] * CT CHEST PE STUDY (02/07/2024 2:40 PM CDT) Anatomical Region Laterality Modality CHEST, THORAX, HEART Computed To mography 02/07/2024 3:31 PM CDT Impressions 02/07/2024 3:31 PM CDT 1. Within the limitations of suboptimal pulmonary [...] Narrative 02/07/2024 3:31 PM CDT For Patients: As a result of the Cures Act, medical imaging exams and procedure reports are released immediately into your electronic medical record. You may view this report before your referring provider. If you have questions, please contact your health [...] are not excluded based on this exam. Thoracic aorta is normal in caliber. Coronary [...] Upper abdomen: Unremarkable. Procedure Note Kenan Carmichael, - 02/07/2024 For Patients: As a result [...] (Electronically Signed) Charlene Moeller DO CT * LC HIV-1/O/2, 4TH GENERATION (09/04/2022 9:18 AM STEAMER GUM CANDY) HIV Scr 4th Gen Non Reactive Non Reactive 09/06/2022 10:06 PM STEAMER GUM CANDY [facility] Comment: HIV Negative HIV-1/HIV-2 antibodies and HIV-1 p24 antigen were NOT detected. There is no laboratory evidence of HIV infection. Blood BLOOD SPECIMEN / Unknown Butterfly / Unknown 09/04/2022 9:18 AM STEAMER GUM CANDY 09/04/2022 9:18 AM STEAMER GUM CANDY Narrative [facility] - 09/06/2022 10:06 PM STEAMER GUM CANDY Performed at: [address] [place] [address], [place], [place] [id number] Water Control Station Engineer: Chip Gutierrez MD, Phone: [phone] Ben Cadena MD LABORATORY [facility] ([facility]) [address] [place] [address] * COLONOSCOPY SCREENING (08/16/2020 12:00 AM STEAMER GUM CANDY) Ben Cadena MD GI PROCEDURE O RD * ANTI HCV (06/30/2016 8:46 AM STEAMER GUM CANDY) HEPATITIS C ANTIBODY Non-Reacti ve Non-Reacti ve 06/30/2016 5:58 PM STEAMER GUM CANDY [facility] Blood BLOOD SPECIMEN / Unknown Venipuncture / Unknown 06/30/2016 8:46 AM STEAMER GUM CANDY 06/30/2016 8:46 AM STEAMER GUM CANDY Narrative [facility]AL [facility] - 06/30/2016 5:58 PM STEAMER GUM CANDY Antibodies to HCV not detected; does not exclude the possibility of exposure to HCV. Ben Cadena MD SEND OUTS [facility] [address] [place] [address], from Last 3 Months or Most Recently Relevant to Health Maintenance Advance Directives Documents on File Type Date Recorded Patient Armored Car Messenger Expl anation Healthcare Directive 09/07/2023 8:33 AM HC D - 09/07/2023 * Full Code (Latest Code Status on File) Date Activated Date Inactivated Comments 02/09/2024 3:48 AM 02/12/2024 9:31 PM Question Answer Comments Code Status Discussion: Unable [...] 8:58 AM 10/02/2017 4:45 PM Care Teams Site Planner Relationship Specialty Start Date End Date Ben Cadena MD [address] [place] [address] PCP - General Family Practice 06/01/16 Edna Dickson MBBS [address] [facility] [address] [place] [address] Endocrinology Endocrinology 03/10/20 Renee Lopez PA [address] [facility] [address] [facility] [address] [place] [address] Endocrinology Physician Supervisor Plastering 10/31/23 Leonor Martinez, BORIS [address] [place], [place] [phone] Chronic Kidney Disease Registered Nurse 02/19/24 Abril Dillard LICSW [address] [place], [place] [phone] Guard Sergeant 03/21/24
--- OUTSIDE RECORDS SUMMARY | 2024-06-27 07:08 | XMS_ITS | Encounter Summary ---
Author Organization [facility] Address [address] [facility] [address] [place] [address] Care Team Providers Care Direct Selling Counselor Name Role Phone Ben Cadena MD Primary Care Provider [phone] Encounter Details Date Type Department Care Team (Late st Contact Info) Description 06/25/2024 Orders Only [facility] [address] [place] [address] Darion So MD [address] [place] [phone] Stage 3b chronic kidney disease (HCC) Social [...] on file documented as of this encounter Progress Notes * Darion So MD - 06/25/2024 11:59 PM CST Overall renal function is stable. Potassium is low. I will have him increase potassium in his diet.Repeat BMP in 1 month. If K still low, then will start supplement. Please send BMP to clinic where he does labs (I ordered it). Thanks. -Claus So MD documented in this encounter Plan of Treatment Upcoming Encounters Date Type Department Care Team (Late st Contact Info) Description 07/13/2024 Orders Only [facility] [address] [facility] [address] [place] [phone] Darion So MD [address] [place] [address] Stage 3b chronic kidney disease (HCC); Hypokalemia 08/29/2024 8:30 AM MATERIAL ASSEMBLER Office Visit [facility] [address] [place] [phone] Darion So MD [address] [place] [address] documented as of this encounter Procedures Procedure Name Priority Date/Time Associated Diagnosis Comments BASIC METABOLIC PANEL Routine 06/12/2024 7:51 AM MATERIAL ASSEMBLER Stage 3b chronic kidney disease (HCC) documented in this encounter Results * (ABNORMAL) Basic metabolic panel (06/12/2024 7:51 AM MATERIAL ASSEMBLER) Glucose 70 65 - 99 mg/dL See order comments Comment: Fasting reference interval BUN 46(H) 7 - 25 mg/dL See order comments Creatinine 2.21(H) 0.70 - 1.35 mg/dL See order comments eGFR CKD-EPI CR 2020 33(L) > OR = 60 mL/min/1.7 3m2 See order comments BUN/Creatinine Ratio 21 6 - 22 (calc) See order comments Sodium 142 135 - 146 mmol/L See order comments Potassium 3.0(L) 3.5 - 5.3 mmol/L See order comments Chloride 96(L) 98 - 110 mmol/L See order comments Bicarbonate (CO2) 39(H) 20 - 32 mmol/L See order comments Calcium 9.8 8.6 - 10.3 mg/dL See order comments Blood (Blood, Venous) 06/12/2024 7:51 AM MATERIAL ASSEMBLER 06/12/2024 7:51 AM MATERIAL ASSEMBLER Narrative Resulting Agency Comment Performing Organization Information: Site ID: CB Name: [facility] Address: [address] [place] [id number] Director: Thomas Rodriguez us Darion So MD LAB BLOOD ORDERABLES Final Re sult [facility] See order [place] [address] documented in this encounter Visit Diagnoses Diagnosis Stage 3b chronic kidney disease (HCC) Stage 3b chronic kidney disease (HCC) Hypokalemia documented in this encounter Care Teams Direct Selling Counselor Relationship Specialty Start Date End Date Ben Cadena MD [address] [place] [address] PCP - General Family Medicine 09/05/23 documented as of this encounter
--- OUTSIDE RECORDS SUMMARY | 2024-06-27 07:08 | XMS_ITS | Encounter Summary ---
Author Organization [facility] Address [address] [facility] [address] [place] [address] Care Team Providers Care Maintenance Planner Name Role Phone Ben Cadena MD Primary Care Provider [phone] Encounter Details Date Type Department Care Team (Late st Contact Info) Description 05/19/2024 Orders Only [facility] [place] [address] Darion So MD [address] [place] [address] Stage 3b chronic kidney disease (HCC) Social History Tobacco Use Types Packs/Day Years Used Date Smoking Tobacco: Former Cigarettes 2 26 0 07/23/1979 - 07/23/2005 Smokeless Tobacco: Never Alcohol Use Standard Drinks/Week Comments Yes 1 (1 standard drink = 0.6 oz [...] 07/13/2024 Orders Only [facility] [address] [phone] Darion So MD [address] [place] [address] Stage 3b chronic kidney disease (HCC); Hypokalemia 08/29/2024 8:30 AM BIG DATA ADMIN Office Visit [facility] [address] [place] [address] Darion So MD [address] [place] [phone] documented as of this encounter Procedures Procedure Name Priority Date/Time Associated Diagnosis Comments PROTEIN / CREATININE RATIO, URINE Routine 05/15/2024 9:14 AM CDT Stage 3b chronic kidney disease (HCC) HEMOGLOBIN Routine 05/15/2024 9:14 AM CDT Stage 3b chronic kidney disease (HCC) PTH, INTACT Routine 05/15/2024 9:14 AM CDT Stage 3b chronic kidney disease (HCC) RENAL FUNCTION PANEL Routine 05/15/2024 9:14 AM CDT Stage 3b chronic kidney disease (HCC) documented in this encounter Results * (ABNORMAL) Urine Protein / creatinine ratio (05/15/2024 9:14 AM CDT) Creatinine, Ur 60 20 - 320 mg/dL See order comments Urine Protein/Creati nine Ratio 283(H) 25 - 148 mg/g creat See order comments Protein/Creati nine Ratio, Urine 0.283(H) 0.025 - 0.148 mg/mg creat See order comments Protein Urine Random 17 5 - 25 mg/dL See order comments Urine (Urine, Clean Catch) 05/15/2024 9:14 AM CDT 05/15/2024 9:15 AM CDT Narrative Resulting Agency Comment Performing Organization Information: Site ID: [id number] Name: [facility] Address: [address] [place] [id number] Director: Thomas Rodriguez us Darion So MD LAB URINE ORDERABLES Final Re sult [facility] See order comments [place] [address] * (ABNORMAL) PTH, intact (05/15/2024 9:14 AM CDT) Parathyroid Hormone, Intact 89(H) 16 - 77 pg/mL See order comments Comment: Interpretive Guide Intact PTH Calcium ------- Normal Parathyroid Normal Normal Hypoparathyroidism Low or Low Normal Low Hyperparathyroidism Primary Normal or High High Secondary High Normal or Low Tertiary High High Non-Parathyroid Hypercalcemia Low or Low Normal High Blood (Blood, Venous) 05/15/2024 9:14 AM CDT 05/15/2024 9:15 AM CDT Narrative Resulting Agency Comment Performing Organization Information: Site ID: Name: [facility] Address: [address] [place] [id number] Director: Thomas Rodriguez Darion So MD LAB BLOOD ORDERABLES Final Re sult Performing Organization Address [facility] de Phone Number [facility] See order comments [place] [address] * Hemoglobin (05/15/2024 9:14 AM CDT) Hemoglobin 14.1 13.2 - 17.1 g/dL See order comments Blood (Blood, Venous) 05/15/2024 9:14 AM CDT 05/15/2024 9:15 AM CDT Narrative Resulting Agency Comment Performing Organization Information: Site ID: Name: [facility] Address: [address] [place] [phone] Director: Thomas Rodriguez us Darion So MD LAB BLOOD ORDERABLES Final Re sult Performing Organization Address [facility] de Phone Number [facility] See order comments [place] [address] * (ABNORMAL) Renal function panel (05/15/2024 9:14 AM CDT) Glucose 323(H) 65 - 99 mg/dL See order comments Comment: Fasting reference interval For someone without known diabetes, a glucose value >125 mg/dL indicates that they may have diabetes and this should be confirmed with a follow-up test. BUN 40(H) 7 - 25 mg/dL See order comments Creatinine 1.82(H) 0.70 - 1.35 mg/dL See order comments eGFR CKD-EPI CR 2020 41(L) > OR = 60 mL/min/1.7 3m2 See order comments BUN/Creatinine Ratio 22 6 - 22 (calc) See order comments Sodium 140 135 - 146 mmol/L See order comments Potassium 3.7 3.5 - 5.3 mmol/L See order comments Chloride 97(L) 98 - 110 mmol/L See order comments Bicarbonate (CO2) 33(H) 20 - 32 mmol/L See order comments Calcium 9.2 8.6 - 10.3 mg/dL See order comments Phosphorus 2.6 2.5 - 4.5 mg/dL See order comments Albumin 4.2 3.6 - 5.1 g/dL See order comments Blood (Blood, Venous) 05/15/2024 9:14 AM CDT 05/15/2024 9:15 AM CDT Narrative Resulting Agency Comment Performing Organization Information: Site ID: Name: [facility] Address: [address] [place] [phone] Director: Thomas Rodriguez Darion So MD LAB BLOOD ORDERABLES Final Re sult [facility] See order comments [place] [address] documented in this encounter Visit Diagnoses Diagnosis Stage 3b chronic kidney disease (HCC) Stage 3b chronic kidney disease (HCC) Hypokalemia documented in this encounter Care Teams Maintenance Planner Relationship Specialty Start Date End Date Ben Cadena MD [address] [place] [address] PCP - General Family Medicine 09/05/23 documented as of this encounter
--- OUTSIDE RECORDS SUMMARY | 2024-06-27 07:08 | XMS_ITS | Encounter Summary ---
Author Organization [facility] Address [address] [facility] [address] [place] [address] Care Team Providers Care Camp Director Name Role Phone Ben Cadena MD Primary Care Provider [phone] Encounter Details Date Type Department Care Team (Late st Contact Info) Description 04/28/2024 Orders Only [facility] [place] [address] Darion So MD [address] [place] [address] Stage 3b chronic kidney disease [...] 07/13/2024 Orders Only [facility] [address] [phone] Dairon So MD [address] [place] [address] Stage 3b chronic kidney disease (HCC); Hypokalemia 08/29/2024 8:30 AM BARGE ENGINEER Office Visit [facility] [address] [place] [address] Darion So MD [address] [place] [phone] documented as of this encounter Visit Diagnoses Diagnosis Stage 3b chronic kidney disease (HCC) Stage 3b chronic kidney disease (HCC) Hypokalemia documented in this encounter Care Teams Camp Director Relationship Specialty Start Date End Date Ben Cadena MD [address] [place] [address] PCP - General Family Medicine 09/05/23 documented as of this encounter
--- OUTSIDE RECORDS SUMMARY | 2024-06-27 07:08 | XMS_ITS | Encounter Summary ---
Author Organization [facility] Address [address] [facility] [address] [place] [address] Care Team Providers Care Rehab Trainer Name Role Phone Ben Cadena MD Primary Care Provider [phone] Encounter Details Date Type Department Care Team (Late st Contact Info) Description 02/14/2024 Orders Only [facility] [address] [place] [address] [place] [address] Darion So MD [address] [place] [address] Stage 3b chronic kidney disease [...] Progress Notes * Darion So MD - 02/14/2024 11:59 PM CDT Will address labs at follow-up. -Claus So MD documented in this encounter Plan of Treatment Upcoming Encounters Date Type Department Care Team (Late st Contact Info) Description 07/13/2024 Orders Only [facility] [address] [place] [phone] Darion So MD [address] [place] [address] Stage 3b chronic kidney disease (HCC); Hypokalemia 08/29/2024 8:30 AM LANGUAGE SPECIALIST Office Visit [facility] [address] [place] [address] Darion So MD [address] [place] [address] documented as of this encounter Procedures Procedure Name Priority Date/Time Associated Diagnosis Comments BASIC METABOLIC PANEL Routine 02/14/2024 3:05 PM CDT Stage 3b chronic kidney disease (HCC) documented in this encounter Results * (ABNORMAL) Basic metabolic panel (02/14/2024 3:05 PM CDT) Sodium 135(L) mEq/L [facility] Potassium [facility] Comment:Canceled- specimen H emolyzed, Disposition Per Policy Chloride 93(L) [facility] Carbon Dioxide 30(H) mmol/L [facility] Calcium 9.4 mg/dL [facility] BUN 73(H) mg/dL [facility] Creatinine 2.63(H) mg/dL [facility] Glucose 90 mg/dL [facility] eGFR 27(L) [facility] Anion Gap 12 [facility] Blood (Blood, Venous) 02/14/2024 3:05 PM CDT us Darion So MD LAB BLOOD ORDERABLES Final Re sult [facility] documented in this encounter Visit Diagnoses Diagnosis Stage 3b chronic kidney disease (HCC) Stage 3b chronic kidney disease (HCC) Hypokalemia documented in this encounter Care Teams Rehab Trainer Relationship Specialty Start Date End Date Ben Cadena MD [address] [place] [address] PCP - General Family Medicine 09/05/23 documented as of this encounter
--- OUTSIDE RECORDS SUMMARY | 2024-06-27 07:08 | XMS_ITS | Continuity of Care Document ---
Author Organization [facility] Address [address] [place] [address] Phone Care Team Providers Care Roofing Layer Name Role Phone Cosme Rowley MD Unavailable [...] [facility] , [address], [place], [address], [place] tel:[phone] [facility] , No Information 1 Amrik Aguiar. [facility] [address], [place], [address], [place]. tel:[phone] [facility] , [address], [place], [address], [place] tel:[phone] [facility] , No Information 1 Amrik Aguiar. [facility] [address], [place], [address], [place]. tel:[phone] [facility] , [address], [place], [address], [place] tel:[phone] [facility] , No Information 1 Amrik Aguiar. [facility] [address], [place], [address], [place]. tel:[phone] Phone E/M By Phys 11-20 Min [facility] , [address], [place], [address], [place] tel:[phone] Telehealth Rheumatoid arthritis (chief complaint)Mo nitor Chronic High Risk Meds (chief complaint) RA w/ rheumatoid factor of multiple sites w/o organ involvementO ther bed bug exterminator (current) drug therapy 5- 1 Amrik Aguiar. [facility] [address], [place], [address], [place]. tel:[phone] Referring Provider: Cosme Alcantara, [facility] [address], [place], [address]. tel:[phone] Office/Outpa tient Visit, Est [facility] , [address], [place], [address], [place] tel:[phone] [facility] , Rheumatoid arthritis (chief complaint)Mo nitor Chronic High Risk Meds (chief complaint) RA w/ rheumatoid factor of multiple sites w/o organ involvementL ow back painOther fdc (current) drug therapy 9 Amrik Aguiar. [facility] [address], [place], [address], [place]. tel:[phone] Referring Provider: Cosme Alcantara, [facility] [address], [place], [address]. tel:[phone] Office/Outpa tient Visit, Est [facility] , [address], [place], [address], [place] tel:[phone] [facility] , RA w/ rheumatoid factor of multiple sites w/o organ involvementO ther fdc (current) drug therapyLow back pain Sep- 8 Amrik Aguiar. [facility] [address], [place], [address], [place]. tel:[phone] Referring Provider: Cosme Alcantara, [facility] [address], [place], [address]. tel:[phone] Office/Outpa tient Visit, Est [facility] , [address], [place], [address], [place] tel:[phone] [facility] , Rheumatoid arthritis (chief complaint)Mo nitor Chronic High Risk Meds (chief complaint) RA w/ rheumatoid factor of multiple sites w/o organ involvementO ther fdc (current) drug therapyThrom bocytopenia Amrik Herrera [facility] [address], [place], [address], [place]. tel:[phone] Referring Provider: Cosme Alcantara, [facility] [address], [place], [address]. tel:[phone] Office/Outpa tient Visit, Est [facility] , [address], [place], [address], [place] tel:[phone] [facility] , Rheumatoid arthritis (chief complaint)Mo nitor Chronic High Risk Meds (chief complaint) RA w/ rheumatoid factor of multiple sites w/o organ involvementO ther fdc (current) drug therapyThrom bocytopenia Amrik Herrera [facility] [address], [place], [address], [place]. tel:[phone] Referring Provider: Cosme Alcantara, [facility] [address], [place], [address]. tel:[phone] [facility] , [address], [place], [address], [place] tel:[phone] [facility] , No Information 6 Amrik Cosme. [facility] [address], [place], [address], [place]. tel:[phone] Office/Outpa tient Visit, Est [facility] , [address], [place], [address], [place] tel:[phone] [facility] , Rheumatoid arthritis (chief complaint)Mo nitor Chronic High Risk Meds (chief complaint) RA w/ rheumatoid factor of multiple sites w/o organ involvementO ther fdc (current) drug therapy 6 Amrik Aguiar. [facility] [address], [place], [address], [place]. tel:[phone] Referring Provider: Cosme Alcantara, [facility] [address], [place], [address]. tel:[phone] Office/Outpa tient Visit, Est [facility] , [address], [place], [address], [place] tel:[phone] [facility] , Rheumatoid arthritis (chief complaint)Mo nitor Chronic High Risk Meds (chief complaint) RA w/ rheumatoid factor of multiple sites w/o organ involvementO ther bed bug exterminator (current) drug therapyPares thesia of skin 6 Amrik Cosme. [facility] [address], [place], [address], [place]. tel:[phone] Referring Provider: Cosme Alcantara, [facility] [address], [place], [address]. tel:[phone] Office/Outpa tient Visit, Est [facility] , [address], [place], [address], [place] tel:[phone] [facility] , Rheumatoid arthritis (chief complaint)Mo nitor Chronic High Risk Meds (chief complaint) RA w/ rheumatoid factor of multiple sites w/o organ involvementO ther bed bug exterminator (current) drug therapyPares thesia of skin Oct-2 6 Amrik Aguiar. [facility] [address], [place], [address], [place]. tel:[phone] Referring Provider: Cosme Alcantara, [facility] [address], [place], [address]. tel:[phone] Office/Outpa tient Visit, Est [facility] , [address], [place], [address], [place] tel:[phone] [facility] , Rheumatoid arthritis (chief complaint) RA w/ rheumatoid factor of multiple sites w/o organ involvementO ther fdc (current) drug therapy Fe0 6 Amrik Aguiar. [facility] [address], [place], [address], [place]. tel:[phone] Referring Provider: Cosme Alcantara, [facility] [address], [place], [address]. tel:[phone] Office/Outpa tient Visit, Est [facility] , [address], [place], [address], [place] tel:[phone] [facility] , Inflammatory Polyarthropa thy (chief complaint) RA w/ rheumatoid factor of multiple sites w/o organ involvementO ther fdc (current) drug therapy Amrik Aguiar. [facility] [address], [place], [address], [place]. tel:[phone] Referring Provider: Cosme Alcantara, [facility] [address], [place], [address]. tel:[phone] Office/Outpa tient Visit, Est [facility] , [address], [place], [address], [place] tel:[phone] [facility] , Inflammatory Polyarthropa thy (chief complaint) Inflammatory polyarthropa thyTherapeut ic Drug Monitoring Amrik Aguiar. [facility] [address], [place], [address], [place]. tel:[phone] Referring Provider: Cosme Alcantara, [facility] [address], [place], [address]. tel:[phone] Office/Outpa tient Visit, Est [facility] , [address], [place], [address], [place] tel:[phone] [facility] , Inflammatory Polyarthropa thy (chief complaint) Unspecified inflammatory polyarthropa thyTherapeut ic Drug Monitoring Amrik Aguiar. [facility] [address], [place], [address], [place]. tel:[phone] Referring Provider: Cosme Alcantara, [facility] [address], [place], [address]. tel:[phone] Office/Outpa tient Visit, Est [facility] , [address], [place], [address], [place] tel:[phone] [facility] , Inflammatory Polyarthropa thy (chief complaint) Unspecified inflammatory polyarthropa thyTherapeut ic Drug MonitoringLO NG-TERM (CURRENT) USE OF STEROIDS 4 Amrik Aguiar. [facility] [address], [place], [address], [place]. tel:[phone] Referring Provider: Cosme Alcantara, [facility] [address], [place], [address]. tel:[phone] Office/Outpa tient Visit, Est [facility] , [address], [place], [address], [place] tel:[phone] [facility] , Joint Pain (chief complaint) Pain in joint involving multiple sitesTherape utic Drug Monitoring 4 Amrik Aguiar. [facility] [address], [place], [address], [place]. tel:[phone] Referring Provider: Cosme Alcantara, [facility] [address], [place], [address]. tel:[phone] Office/Outpa tient Visit, New [facility] , [address], [place], [address], [place] tel:[phone] [facility] , Joint Pain (chief complaint) Pain in joint involving multiple sitesOther specified disorders of bursae and tendons in shoulder regionAbnorm al Liver Enzymes 4 Amrik Aguiar. [facility] [address], [place], [address], [place]. tel:[phone] Referring Provider: Cosme Alcantara, [facility] , [facility] [address], [place], [address]. tel:[phone] Family History Family Member Type Diagnosis Age At Onset No Information Payers Payer name Insurance type Covered constitution party ID Benny kumar(s) Robin BROWN [id number] Social History Type Description Quantity Date Captured [...] this next on 08/12/2020. Related to Other bed bug exterminator (current) drug therapy Decrease leflunomide from 20 mg to 10 mg daily, while continuing prednisone 5 mg daily. 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 A lab order was provided to the patient. Related to Other fdc (current) drug therapy Continue leflunomide 20 milligrams daily and prednisone 5 milligrams daily.Considering the strong tendency for rheumatoid arthritis to flare when an effective medication is decreased or withdrawn, I am hesitant to decrease the sulfasalazine unless there is strong concern that it is contributory to the renal insufficiency. I defer to the patient's bag adjuster regarding the importance of decreasing or discontinuing [...] provided to the patient. Related to Other fdc (current) drug therapy Continue current ant i-rheumatic medications unchanged. 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 Related to Other fdc (current) drug therapy I encouraged the pat ient to decrease his alcohol consumption.I will consider further adjustment to the patient's antirheumatic medication doses.Option for hematology evaluation.We will be in telephone contact with the patient when the results of today's laboratory studies are available to determine if any further adjustments are required. Related to Thrombocytopenia Continue current ant i-rheumatic medications unchanged, pending results of today's updated laboratory studies. 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 Related to Other bed bug exterminator (current) drug therapy The patient will hav e CBC, Cr, transaminases and albumin performed every 3 months. Related to Other bed bug exterminator (current) drug therapy Continue current ant i-rheumatic [...] performed every 2-3 months. Related to Other fdc (current) drug therapy Continue current ant i-rheumatic [...] performed every 2-3 months. Related to Other fdc (current) drug therapy Than you sulfasalazi ne [...] again in one month. Related to Other bed bug exterminator (current) drug therapy The patient will hav e CBC, Cr, transaminases and albumin performed every 2-3 months in the near term. Related to Other fdc (current) drug therapy Option to mildly fur [...]
--- OUTSIDE RECORDS SUMMARY | 2024-06-27 07:08 | XMS_ITS | Clinical Summary ---
Author Organization [facility] [place] Address [address] [facility] [place] [address] Phone Care Team Providers Care Fire Controlman Name Role Phone Ben Cadena MD Primary Care Provider [phone] Allergies Active Allergy Reactions Criticality Noted Date Comments Allopurinol 03/08/2022 Amlodipine Swelling High 08/09/2017 Edema on 10mg, ok [...] pt report. Topiramate Hives,Rash Low 12/13/2020 Medications OLANZapine (ZyPREXA) 2.5 MG tablet 2.5 mg in the morning. 07/10/20 23 Active nortriptyline (PAMELOR) 25 MG capsule Take 2 Capsules (50 mg) by mouth at bedtime. 08/18/19 20 Active pantoprazole (PROTONIX) 40 MG EC tablet take 1 tablet by oral route every day Active nitroglycerin (NITROSTAT) 0.[address] 1 tablet under the tongue every 5 minutes if needed for Chest Pain (up to 3 doses). 10/03/19 18 Active levothyroxine (SYNTHROID, LEVOTHROID) 125 MCG tablet Take 1 Tablet (125 mcg) by mouth before breakfast. 07/11/20 Active metoprolol succinate XL (TOPROL-XL) 100 MG 24 hr tablet take 1 tablet by oral route every day Active polyethylene glycol (GLYCOLAX) 17 GM/SCOOP powder Take 17 g by mouth 2 times daily as needed for constipation 04/14/20 Active timolol (Betimol) 0.5 % ophthalmic solution Place 1 Drop into both eyes two times daily. 09/15/19 Active senna-docusate (PERICOLACE) 8.6-50 MG per tablet Take 2 Tablets by mouth 2 times daily if needed. 06/13/20 Active torsemide (DEMADEX) 20 MG tablet TAKE 4 TABLETS (80 MG) BY MOUTH TWO TIMES DAILY. 03/12/20 Active rOPINIRole (REQUIP) 4 MG tablet Take 1 Tablet (4 mg) by mouth two times daily. 02/23/20 Active pregabalin (LYRICA) 50 MG capsule Take 1 Capsule (50 mg) by mouth two times daily. 07/10/20 Active KLOR-CON 20 MEQ CR tablet TAKE 1 TABLET (20 MEQ) BY MOUTH DAILY 04/27/20 Active pyridoxine (B-6) 100 MG tablet Take 100 mg by mouth once daily. Active Calcium Acetate, Phos Binder, 667 MG capsule TAKE 1 CAPSULE BY MOUTH 3 TIMES DAILY WITH MEALS. 12/06/19 Active brimonidine (ALPHAGAN) 0.15 % ophthalmic solution Place 1 Drop into both eyes two times daily. Active Calcium Polycarbophil (Fiber) 625 MG tablet Take 625 mg by mouth two times daily. Active allopurinol (ZYLOPRIM) 300 MG tablet TAKE 1 TABLET (300 MG) BY MOUTH ONCE DAILY. START AFTER 4 WEEKS OF 200 MG DAILY. 08/23/19 Active acetaminophen (TYLENOL) 325 MG tablet Take 975 mg by mouth every 8 hours if needed. 06/13/20 Active atorvastatin (LIPITOR) 40 MG tablet Take 1 Tablet (40 mg) by mouth once daily. 08/18/19 Active insulin aspart (NovoLOG FLEXPEN) 100 UNIT/ML injection 30 Units Inject 30 units subcutaneous before breakfast, 24 units before lunch, and 30 units before supper. Plus sliding scale up to 100 units daily 08/29/19 24 Active DULoxetine (CYMBALTA) [address] capsule Take 1 capsule (30 mg) by mouth daily 07/10/20 23 Active cyanocobalamin (VITAMIN B-12) 1000 MCG tablet Take 1,000 mcg by mouth daily Active triamcinolone (KENALOG) 0.5 % cream Apply topically 3 (three) times a day Active Trulicity 0.75 MG/0.5ML solution pen-injector 10/22/19 24 Active insulin degludec (TRESIBA FLEX TOUCH) 100 UNIT/ML injection Inject 110 Units under the skin in the morning. 10/29/19 24 Active aspirin (ST FRACISCO) 81 MG EC tablet Take 81 mg by mouth 1 (one) time each day Active Cholecalciferol 50 MCG (2000 UT) capsule Take 1 capsule by mouth 1 (one) time each day 90 capsule 3 02/22/20 24 Active cefadroxil (DURICEF) 500 MG capsule 02/05/20 24 Active HYDROcodone-aceta minophen (NORCO) 5-325 MG per tablet 05/19/20 24 Active Lantus SoloStar 100 UNIT/ML injection 05/20/20 24 Active Mounjaro 2.5 MG/0.5ML solution auto-injector Inject 2.5 mg under the skin 1 (one) time per week 05/15/20 24 Active metOLazone 2.5 MG tablet Take 2 tablets (5 mg total) by mouth every Sunday and Sunday On Fridays. 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, not otherwise specified 03/03/2024 05/26/2024 Type 2 diabetes mellitus 09/14/2023 Chronic kidney disease, Stage V 01/05/2023 11/15/2023 Encounters Date Type Department Care Team Description 06/25/2024 Orders Only [facility] [place] [address] Darion So MD Stage 3b chronic kidney disease (HCC) 06/16/2024 Telephone [facility] [place] [address] [place] [address] Radhika Ahmadi RN 05/26/2024 8:30 AM SMEARER Office Visit [facility] [place] [place] [address] Darion So MD Stage 3b chronic kidney disease (HCC) (Primary Dx); Type 2 diabetes mellitus with diabetic chronic kidney disease (HCC); Hypertensive chronic kidney disease with stage 1 through stage 4 chronic kidney disease, or unspecified chronic kidney disease; Anemia in chronic kidney disease; Secondary hyperparathyroidism of renal origin (HCC); Chronic systolic heart failure (HCC); History of amputation of left leg through tibia and fibula (HCC); Seropositive rheumatoid arthritis (HCC) 05/19/2024 Orders Only [facility] [place] [address] Darion So MD Stage 3b chronic kidney disease (HCC) 04/28/2024 Orders Only [facility] [place] [address] Darion So MD Stage 3b chronic kidney disease (HCC) from Last 3 Months Family History Medical History Relation Comments Cancer Father Diabetes Father Gout Father COPD Mother Kidney disease Paternal Grandfather Gout Paternal Grandmother Kidney disease Paternal Grandmother Friedreich's ataxia Sister Relation Status Comments Father Mother Paternal Grandfather Paternal Grandmother Sister Social History Tobacco Use Types Packs/Day Years Used Date Smoking Tobacco: Some Days Cigarettes 2 26 Started: 07/23/1979; Last attempted to quit: 07/23/2005 Cigars Smokeless Tobacco: Never Tobacco Cessation:Ready to Q uit: Not Asked; Counseling Given: Not Answered Alcohol Use Standard Drinks/Week Comments Not Currently 1 (1 standard drink = 0.6 oz pur e alcohol) Per week Sex and Gender Information Value Date Recorded Sex Assigned at Not on file Legal Sex Male 10:30 AM EST Gender Identity Not on file Sexual Orientation Not on file Last Filed Vital Signs Vital Sign Reading Time Taken Comments Blood Pressure 136/72 05/26/2024 8:21 AM SMEARER Pulse 88 05/26/2024 8:21 AM SMEARER Temperature - - Respiratory Rate - - Oxygen Saturation 89% 05/26/2024 8:21 AM SMEARER Inhaled Oxygen Concentration - - Weight 131 kg (289 lb) 05/26/2024 8:21 AM SMEARER Height 167.6 cm (5' 6) 05/26/2024 8:21 AM SMEARER Body Mass Index 46.65 05/26/2024 8:21 AM SMEARER Plan of Treatment Upcoming Encounters Date Type Department Care Team (Late st Contact Info) Description 07/13/2024 Orders Only [facility] [place] [address] [facility] [address] [place] [phone] Darion So MD [address] [place] [phone] Stage 3b chronic kidney disease (HCC); Hypokalemia 08/29/2024 8:30 AM SMEARER Office Visit [facility] [place] [place] [address] [place] [address] Darion So MD [address] [place] [phone] Health Maintenance Due Date Last Done Comments Pneumococcal Vaccine: Pediatrics (0 to 5 Years) and At-Risk Patients (6 to 64 Years) (1 of 2 - PCV) 10/04/1967 Colorectal Cancer Screening: Annual FOBT 2010 Colorectal Cancer Screening: Colonoscopy 2010 Colorectal Cancer Screening: Sigmoidoscopy 2010 Diabetes: Ophthalmology Exam 09/05/2023 Diabetes: Pedal Pulse Checked 09/05/2023 Diabetes: Sensory Foot Exam 09/05/2023 Diabetes: Visual Foot Exam 09/05/2023 Influenza Vaccine (#1) 2024 Diabetes: Hemoglobin A1C 05/11/2024 024, 02/08/2024, 11/12/2023, Additional history exists Hepatitis B Vaccine Aged Out 05/15/2024, No longer eligible based on patient's age to complete this topic Procedures Procedure Name Priority Date/Time Associated Diagnosis Comments BASIC METABOLIC PANEL Routine 06/12/2024 7:51 AM SMEARER Stage 3b chronic kidney disease (HCC) PROTEIN / CREATININE RATIO, URINE Routine 05/15/2024 9:14 AM CDT Stage 3b chronic kidney disease (HCC) PTH, INTACT Routine 05/15/2024 9:14 AM CDT Stage 3b chronic kidney disease (HCC) HEMOGLOBIN Routine 05/15/2024 9:14 AM CDT Stage 3b chronic kidney disease (HCC) RENAL FUNCTION PANEL Routine 05/15/2024 9:14 AM CDT Stage 3b chronic kidney disease (HCC) from Last 3 Months Results * (ABNORMAL) Basic metabolic panel (06/12/2024 7:51 AM SMEARER) Glucose 70 65 - 99 mg/dL See [...] comments Blood (Blood, Venous) 06/12/2024 7:51 AM SMEARER 06/12/2024 7:51 AM SMEARER Narrative Resulting Agency Comment Performing Organization Information: Site ID: [email or web address] Name: [email or web address] Address: [address] [place] [phone] Director: Thomas Rodriguez Darion So MD LAB BLOOD ORDERABLES Final Re sult [facility] See order comments [place] [address] * (ABNORMAL) Urine Protein / creatinine ratio [...] Comment Performing Organization Information: Site ID: Name: [email or web address] Address: [address] [place] [phone] Director: Thomas Rodriguez Darion So MD LAB URINE ORDERABLES Final Re sult [facility] See order comments [place] [address] * Hemoglobin (05/15/2024 9:14 AM CDT) Hemoglobin 14.1 13.2 - 17.1 g/dL See order comments Blood (Blood, Venous) 05/15/2024 9:14 AM CDT 05/15/2024 9:15 AM CDT Narrative Resulting Agency Comment Performing Organization Information: Site ID: [email or web address] Name: [email or web address] Address: [address] [place] [phone] Director: Thomas Rodriguez Darion So MD LAB BLOOD ORDERABLES Final Re sult Performing Organization Address [facility] de Phone Number [facility] See order comments [place] [address] * (ABNORMAL) PTH, intact (05/15/2024 9:14 AM [...] Comment Performing Organization Information: Site ID: Name: [email or web address] Address: [address] [place] [phone] Director: Thomas Rodriguez Darion So MD LAB BLOOD ORDERABLES Final Re sul Performing Organization Address [facility] Phone Number [facility] See order comments [place] [address] * (ABNORMAL) Renal function panel (05/15/2024 9:14 [...] Performing Organization Information: Site ID: CB Name: [email or web address] Address: [address] [place] [phone] Director: Thomas Rodriguez us Darion So MD LAB BLOOD ORDERABLES Final Re sult [facility] See order comments [place] [address] from Last [address] [facility] ([id number]) Care Teams Fire Controlman Relationship Specialty Start Date End Date Ben Cadena MD [address] [place] [address] PCP - General Family Medicine 09/05/23
--- OUTSIDE RECORDS SUMMARY | 2024-06-27 07:08 | XMS_ITS | Encounter Summary ---
Author Organization [facility] Address [address] [facility] [address] [place] [address] Care Team Providers Care Music Mixer Name Role Phone Ben Cadena MD Primary Care Provider [phone] Reason for Visit * Reason Comments Follow-up Encounter Details Date Type Department Care Team (Latest Contact Info) Description 05/26/2024 8:30 AM TOOLMAKER HELPER Office Visit [facility] [address] [place] [address] Darion So MD [address] [place] [address] Stage 3b chronic kidney disease [...] and fibula (HCC); Seropositive rheumatoid arthritis (HCC) Social History Tobacco Use Types Packs/Day [...] Comments Blood Pressure 136/72 05/26/2024 8:21 AM TOOLMAKER HELPER Pulse 88 05/26/2024 8:21 AM TOOLMAKER HELPER Temperature - - Respiratory Rate - - Oxygen Saturation 89% 05/26/2024 8:21 AM TOOLMAKER HELPER Inhaled Oxygen Concentration - - Weight 131 kg (289 lb) 05/26/2024 8:21 AM TOOLMAKER HELPER Height 167.6 cm (5' 6) 05/26/2024 8:21 AM TOOLMAKER HELPER Body Mass Index 46.65 05/26/2024 8:21 AM TOOLMAKER HELPER documented in this encounter Patient Instructions * Patient Instructions* Tash Bryant - 05/26/2024 8:30 AM TOOLMAKER HELPER Roderick, Increase the diuretic metolazone to two tablets twice per week. Get a lab in 1 month and 3 months. Follow-up with me in 3 months. Claus So MD documented in this encounter Progress Notes * Darion So MD - 05/26/2024 8:30 AM CST Images from the original note were not included. Patient: Roderick Walker Date of : 1960 Chart: [id number] PCP: Ben Cadena MD Date of Service: 05/26/2024 Chief Complaint: CKD Stage 3b Subjective: Roderick is a 63 y.o. male here for follow-up. In the past, Roderick was an alcoholic, smoked, and also took 4 tabs of Aleve daily for years, and didn't care for himself well. This was prior to an NSTEMI in 09/2017, at which time he was cared for at [facility] and had three NORRIS's placed. Since [...] He followed with bariatric/wt loss clinic at [facility] and was seeing roving technician and counselor nathen and lost wt an was going to have gastric sleeve but decided against this in the end. He had AVF placed in Apr 2021 and follow-up showed good flow and ready to use when/if necessary. His renal function improved since that time, baseline Cr in low 2's. Since our last visit, he has been doing ok but is retaining more fluid. He has a hard time doing weight on a scale with one leg but he notices increased edema in his R leg up to thigh. He did metolazone twice a week for 2 weeks at direction of Dr. Cadena and this helped but then came back when he went back to once a week. He does notice his breathing is worse when he is retaining more fluid. He has no other new symptoms. Labs are overall stable. He did have nerve stimulator replaced recently as well and it now has a rechargeable battery. Social History: Lives in [place] He has [address] acres outside [place] and has miles of trails and he hunts on the land. 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 cefadroxil (DURICEF) 500 MG capsule Lexy Healy MD Cholecalciferol 50 MCG (2000 UT) capsule Darion So MD Take 1 capsule by mouth 1 (one) time each day cyanocobalamin (VITAMIN B-12) 1000 MCG tablet Lexy Healy MD Take 1,000 mcg by mouth daily DULoxetine (CYMBALTA) [address] capsule Lexy Healy MD Take 1 capsule (30 mg) by mouth daily HYDROcodone-acetaminophen (NORCO) 5-325 MG per tablet Lexy Healy MD insulin aspart (NovoLOG FLEXPEN) 100 UNIT/ML injection [...] 1 TABLET (20 MEQ) BY MOUTH DAILY Lantus SoloStar 100 UNIT/ML injection Lexy Healy MD levothyroxine (SYNTHROID, LEVOTHROID) 125 MCG tablet Lexy Healy MD Take 1 Tablet (125 mcg) by mouth before breakfast. metOLazone 2.5 MG tablet Darion So MD Take 2 tablets (5 mg total) by mouth every Sunday and Sunday On Fridays. metoprolol succinate XL (TOPROL-XL) 100 MG 24 hr tablet Lexy Healy MD take 1 tablet by oral route every day Mounjaro 2.5 MG/0.5ML solution auto-injector Lexy Healy MD Inject 2.5 mg under the skin 1 (one) time per week nitroglycerin (NITROSTAT) 0.4 MG SL tablet Lexy [...] TIMES DAILY. triamcinolone (KENALOG) 0.5 % cream ProviderLexy MD Apply topically 3 (three) times a day Trulicity 0.75 MG/0.5ML solution pen-injector ProviderLexy MD Allergies Allergen Reactions ??? Amlodipine Swelling Edema on 10mg, ok on 5mg. Edema on 10mg, ok on 5mg. Edema on 10mg, ok on 5mg. Edema on 10mg, ok on 5mg. Edema on 10mg, ok on 5mg. Edema on 10mg, ok on 5mg. Edema on 10mg, ok on 5mg. ??? Allopurinol ??? Milk (Cow) ??? Quinolones Other (see comments) Qtc prolonged ??? Shellfish-Derived Products Hives and Itching Intermittently per pt report. ??? Topiramate Hives and Rash Physical Exam BP 136/72 (BP Location: Left upper arm, Patient Position: Sitting, BP Cuff Size: Large adult) Pulse 88 Ht 5' 6 (1.676 m) Wt 289 lb (131 kg) SpO2 (!) 89% BMI 46.65 kg/m?? CONSTITUTIONAL: appears well today EYES: pupils equal, sclerae not icteric. RESPIRATORY: Clear to auscultation bilaterally, nl effort CARDIOVASCULAR: Regular rate and rhythm, no murmurs. 2+ edema over R leg with compression, BKA on Lwith mild edema above GASTROINTESTINAL: bowel sounds active, not distended PSYCHIATRIC: Alert and pleasant INTEGUMENT: No visible rash on exposed skin Chemistry and Bone Mineral Lab Units 05/15/24 0914 02/14/24 1505 11/12/23 0000 09/07/23 0000 SODIUM mmol/L 140 135* 138 143 POTASSIUM mmol/L 3.7 -- 3.1* 98 CHLORIDE mmol/L 97* 93* 93* 27 CO2 mmol/L 33* 30* 32* 18 CALCIUM mg/dL 9.2 9.4 9.7 9.4 9.4 PHOSPHORUS mg/dL 2.6 -- -- 3.4 PTH pg/mL 89* -- -- 52.4 GLUCOSE mg/dL 323* 90 149* 104* ALBUMIN, S/P g/dL 4.2 -- -- -- ALBUMIN g/dL -- -- -- 4.3 BUN mg/dL 40* 73* 52* 41* CREATININE mg/dL 1.82* 2.63* 2.01* 1.95* EGFR mL/min/1.73m2 41* 27* 37* 38* CBC and Iron Studies Lab Units 05/15/24 0914 09/07/23 0000 HEMOGLOBIN g/dL 14.1 12.6* MCV -- 101* FERRITIN -- 223.0 Urine Lab Units 05/15/24 0914 PROT/CREAT RATIO UR mg/g creat 0.283* 283* Imaging: Renal ultrasound 09/2017: FINDINGS: The right [...] ASSESSMENT AND PLAN: CKD Stage 3b - worsened Acute renal failure January 2024 with Peak Cr 3.94 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 -Cr has improved and eGFR at baseline now is just over 30. However, he is retaining more fluid and Cr is likely lower than expected due to hypervolemia -Increase metolazone to 5mg twice a week (from weekly) as this helped previously -Continue torsemide 80mg bid -He will work on low salt diet, has been having more canned foods that are high in salt recently -AVF was placed in Apr 2021, ready to use if/when necessary although anastamosis sounds like possible stenosis and may need fistulagram before first use -He is interested in home hemodialysis if dialysis is necessary prior to Tx in future -No SGLT2i at this time given risk factors and polypharmacy and limited proteinuria but may re-consider at next visit HTN with hypertensive CKD - stable Good control on current medications. BP was on low side -> I stopped lisionpril in 03/2021. BP reasonably controlled on Toprol XL and diuretic. Hypervolemic and increasing diureetic today. 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 On ASA, plavix, BB, ACEI and diuretic for CAD/CHF. Follows with cardiology. -Continue same med regimen but increase diuretic as above -Continue low salt diet -TTE shows nl LVEF with pacer, saw Dr. Harvey this year and f/u annually recommended with cardiology Anemia in CKD stage 3b - stable Hgb stable, Monitor. He is not requiring HALLE. Sec renal hyperparathyroidism - stable Ca and phos and PTH at goal. -Continue calcium acetate with meals -Monitor labs Type 2 DM with diabetic CKD - stable DM controlled with A1C 7.6% 10/2023. Urine alb:Cr suppressed at 28 mg/g as of 11/12/23. -Continue same medication -Trend A1C with PCP, annual urine Alb:Cr -GFR with recent fall with JEANINE. I will not use SGLT2i at this time. Will monitor proteinuria. Morbid Obesity - stable BMI currently 45. would benefit from weight loss as suggested above, gastric sleeve cancelled as hewas doing well on his own and had lost 50 lbs. Weight gain back with immobility issues related to ankle surgery/infection etc. He plans to get more active again with prosthetic. -PCP is starting Mounjaro, hopefully will aid in weight loss RA - stable Has been off sulfasalazine for years now. Sx unchanged. F/u with rheumatology as needed. Hypokalemia Potassium wnl on last check. On diuretic. Will monitor monthly at this time. Hx of below the knee amputation - stable Continue prosthesis training. Return in about 3 months (around 08/26/2024) for follow-up with MD. Darion So MD [facility] [place] documented in this encounter Plan of Treatment Upcoming Encounters Date Type Department Care Team (Late st Contact Info) Description 07/13/2024 Orders Only [facility] [place] [address] [place] [phone] Darion So MD [address] [place] [phone] Stage 3b chronic kidney disease (HCC); Hypokalemia 08/29/2024 8:30 AM TOOLMAKER HELPER Office Visit [facility] [place] [phone] Darion So MD [address] [place] [address] Scheduled Orders Name Type Priority Associated Diagnoses Orde r Schedule Renal function panel Lab Routine Stage 3b chronic kidney disease (HCC) Expected: 08/25/2024 (Approximate), Expires: 12/22/2024 Hemoglobin Lab Routine Stage 3b chronic kidney disease (HCC) Expected: 08/25/2024 (Approximate), Expires: 12/22/2024 PTH, intact Lab Routine Stage 3b chronic kidney disease (HCC) Expected: 08/25/2024 (Approximate), Expires: 12/22/2024 Urine Albumin / Creatinine Ratio Lab Routine Stage 3b chronic kidney disease (HCC) Expected: 08/25/2024 (Approximate), Expires: 12/22/2024 documented as of this encounter Results * (ABNORMAL) Basic metabolic panel (06/12/2024 7:51 AM TOOLMAKER HELPER) Glucose 70 65 - 99 mg/dL See [...] comments Blood (Blood, Venous) 06/12/2024 7:51 AM TOOLMAKER HELPER 06/12/2024 7:51 AM TOOLMAKER HELPER Narrative Resulting Agency Comment Performing Organization Information: Site ID: Name: [email or web address] Address: [address] [place] [phone] Director: Thomas Rodriguez us Darion So MD LAB BLOOD ORDERABLES Final Re sult [facility] See order comments [place] [address] documented in this encounter Visit Diagnoses Diagnosis Stage 3b chronic kidney disease (HCC)- Primary Type 2 diabetes mellitus with diabetic chronic kidney disease (HCC) Hypertensive chronic kidney disease with stage 1 through stage 4 chronic kidney disease, or unspecified chronic kidney disease Anemia in chronic kidney disease Secondary hyperparathyroidism of renal origin (HCC) Secondary hyperparathyroidism of renal origin Chronic systolic heart failure (HCC) Chronic systolic heart failure History of amputation of left leg through tibia and fibula (HCC) Seropositive rheumatoid arthritis (HCC) Stage 3b chronic kidney disease (HCC) Hypokalemia documented in this encounter Care Teams Music Mixer Relationship Specialty Start Date End Date Ben Cadena MD [address] [place] [address] PCP - General Family Medicine 09/05/23 documented as of this encounter
--- OUTSIDE RECORDS SUMMARY | 2024-06-27 07:08 | XMS_ITS | Continuity of Care Document ---
Author Organization [facility] Address [address] [place] [address] Phone Care Team Providers Care Grinding Machine Operator Portable Name Role Phone Erick Posey MD Unavailable Unavailable Allergies, Adverse Reactions, Alerts Substance Reaction Status Criticality shellfish derived Active No Informa tion Quinolones Active No Information topiramate Rash Active No Information amlodipine Edema Active No Information Medications Medication Instructions Dosage Effective Dates (start - stop) Status Comments acetaminophen 500 mg tablet take 1 tablet by oral route every 6 hours as needed 500 MG - Active allopurinol 300 mg tablet take 1 tablet by oral route every day 300 MG - Active Trulicity 0.75 mg/0.5 mL subcutaneous pen injector inject (0.75MG) by subcutaneous route every week 0.75 MG - Active duloxetine 30 mg capsule,delayed release take 1 capsule by oral route every day 30 MG - Active Novolog FlexPen U-100 Insulin aspart 100 unit/mL (3 mL) subcutaneous inject by subcutaneous route per prescriber's instructions. Insulin dosing requires individualization. 0.00 - Active Klor-Con M20 mEq tablet,extended release take 1 tablet by oral route 2 times every day with food 20 MEQ - Active levothyroxine 125 mcg capsule take 1 capsule by oral route every day 125 MCG - Active Mounjaro 2.5 mg/0.5 mL subcutaneous pen injector inject (2.5MG) by subcutaneous route every week for 4 weeks 2.5 MG - Active naloxone 4 mg/actuation nasal spray spray 0.1 milliliter by intranasal route in 1 nostril may repeat dose every 2-3 minutes as needed alternating nostrils with each dose 4 MG - Active Golytely 236 gram-22.74 gram-6.74 gram-5.86 gram oral solution - Active pregabalin 50 mg capsule take 1 capsule by oral route 3 times every day 50 MG - Active Senokot-S 8.6 mg-50 mg tablet take 2 tablet by oral route every day 2.00 tablet - Active Tresiba FlexTouch U-100 insulin 100 unit/mL (3 mL) subcutaneous pen inject by subcutaneous route per prescriber's instructions. Insulin dosing requires individualization. 0.00 - Active triamcinolone acetonide 0.5 % topical cream apply by topical route 2 times every day a thin layer to the affected area(s) 0.00 - Active Vitamin B-6 100 mg tablet Take 1 tablet by mouth once daily - Active torsemide 20 mg tablet take 4 tablet by oral route 2 times every day 80 MG - Active ropinirole 4 mg tablet take 0.5-1 tablet by oral route 2 times every day - Active pantoprazole 40 mg tablet,delayed release take 1 tablet by oral route every day 40 MG - Active nortriptyline 25 mg capsule take 3 capsule by oral route every day at bedtime 75 MG - Active metoprolol succinate ER 100 mg tablet,extended release 24 hr take 1 tablet by oral route every day 100 MG - Active metolazone 2.5 mg tablet take 2 tablet by oral route every week on Sunday - Active cyanocobalamin (vitamin B-12) 1,000 mcg capsule - Active cholecalciferol (vitamin D3) 50 mcg (2,000 unit) capsule take 1 by Oral route every day 1 - Active calcium acetate 667 mg tablet take 1 tablet by oral route 3 times every day with meals 1 tablet - Active atorvastatin 40 mg tablet take 1 tablet by oral route every day 40 MG - Active aspirin 81 mg tablet,delayed release take 1 tablet by oral route every day 81 MG - Active Procedures Procedure Date Global Postop Visit Implant [facility] Implant [facility] Change Control Document Insufficiencies Est Pt Eval Moderate Pt Seen-No Charge, Per Physician 2022 Pt Seen-No Charge, Per Physician 2022 Global Postop Visit Horizon 637 LSO OTS Fit Implant [facility]CS IPG Implant [facility] Epi Lead Implant [facility] Epi Lead Stimulator Electrodes Each Neurostim Generator, Non-rechargeable,du al Array Implant [facility]CS IPG Implant [facility]CS Epidi Lead Anes- All Integ Neck Incl Subq New Pt Eval 45 Min Advance Directives Directive Yes / No Effective Date File Name No Information Encounters Encounter Description Practice Location Reason(s) For Visit Diagnoses Date Provider Providers Copied on Encounter [facility], [address], [place], [place], [id number], [place] tel:[phone] [facility] No Information 4 Taty Suarez. [address] [facility] [address], [place], [address], [place]. tel:[phone] [facility], [address], [place], [place], [address], [place] tel:[phone] [facility] lower back pain (chief complaint) Radiculopathy, lumbar regionPhantom limb syndrome with painPain in right knee 4 Ivy Toussaint. [address], [place], [address], [place]. tel:[phone] Referring Provider: Ben Cadena MD, [address] [place], [address]. tel:[phone] [facility], [address], [place], [address], [place] tel:[phone] [facility] No Information 4 Freddy Bryant. [address], [place], [address], [place]. tel:[phone] Referring Provider: Ben Cadena MD, [address] [place], [address]. tel:[phone] [facility], [address], [place], [address], [place] tel:[phone] [facility] lower back pain (chief complaint) Type 2 diabetes mellitus with diabetic neuropathyPain in right footPresence of spinal cord neurostimulator 4 [facility]. [address], [place], [place], [address], [place]. tel:[phone] Referring Provider: Annette Hayes , [address], [place], [address]. tel:[phone] [facility], [address], [place], [place], [address], [place] tel:[phone] [facility] No Information 4 DeMesy Diana. [address], [place], [address], [place]. Referring Provider: Annette Hayes , [address], [place], [address]. tel:[phone] [facility], [address], [place], [place], [address], [place] tel:[phone] [facility] Radiculopathy, lumbar region 4 Stephanie Contreras. [address], [place], [address], [place]. tel:[phone] Est Pt Eval Moderate [facility], [address], [place], [place], [address], [place] tel:[phone] [facility] lower back pain (chief complaint) knee pain (chief complaint) Body mass index (BMI) 45.0-49.9, adultRadiculopat hy, lumbar regionPain in right kneePhantom limb syndrome with pain 4 She Qiying. [address], [place], [address], [place]. tel:[phone] Referring Provider: Ben Cadena MD, [address] [facility], [place], [address]. tel:[phone] [facility], [address], [place], [place], [address], [place] tel:[phone] [facility] Radiculopathy, lumbar region 3 Sumrall Shaun. [address], [place], [address], [place]. tel:[phone] Referring Provider: Ben Cadena MD, [address] [facility], [place], [address]. tel:[phone] [facility], [address], [place], [place], [address], [place] tel:[phone] [facility] Radiculopathy, lumbar region 3 RN RN. [address], [place], [address], [place]. tel:[phone] Referring Provider: Ben Cadena MD, [address] [facility], [place], [address]. tel:[phone] [facility], [address], [place], [place], [address], [place] tel:[phone] [facility] back pain (chief complaint) Radiculopathy, lumbar region 3 Sumrall Shaun. [address], [place], [address], [place]. tel:[phone] Referring Provider: Ben Cadena MD, [address] [facility], [place], [address]. tel:[phone] [facility], [facility], [address], [place], [place], [address], [place] tel:[phone] [facility] Radiculopathy, lumbar regionType 2 diabetes mellitus with diabetic neuropathy, unspPain in right foot 3 Oma Marx. [address], [place], [place], [address], [place]. tel:[phone] Referring Provider: Ben Cadena MD, [address] [place], [address]. tel:[phone] [facility], [address], [place], [address], [place] tel:[phone] [facility] back pain (chief complaint) Type 2 diabetes mellitus with diabetic neuropathy, unspPain in right foot 3 [facility]. [address], [place], [place], [address], [place]. tel:[phone] Referring Provider: Erick Posey, [address], [facility] [place], [address] . tel:[phone] [facility], [facility], [address], [place], [place], [address], [place] tel:[phone] [facility] No Information 3 Kvng Dunn. [address], [place], [address], [place]. tel:[phone] Referring Provider: Ben Cadena MD, [address] [place], [address]. tel:[phone] [facility], [address], [place], [place], [address], [place] tel:[phone] [facility] No Information 3 Jaquan Rea. [address], [place], [place], [address], [place]. tel:[phone] Referring Provider: Shaun Calderon, [address], [place], [address]. tel:[phone] [facility], [address], [place], [place], [address], [place] tel:[phone] [facility] Radiculopathy, lumbar region 3 RN RN. [address], [place], [place], [address], [place]. tel:[phone] New Pt Eval [address] [facility], [address], [place], [place], [address], [place] tel:[phone] [facility] back pain (chief complaint) Radiculopathy, lumbar regionPain in left ankleOther specified diabetes mellitus with diabetic nephropathyBody mass index (BMI) 45.0-49.9, adult 3 Taty Rankin. [address], [place], [place], [address], [place]. tel:[phone] Referring Provider: Ben Cadena MD, [address] [place], [address]. tel:[phone] [facility], [address], [place], [place], [address], [place] tel:[phone] No Information No Information Family History Family Member Type Diagnosis Age At Onset No Information Payers Payer name Insurance type Covered libertarian ID Benny kumar(s) [employer]-Medicaid MC [id number] Social History Type Description Quantity Date Captured Comments Alcohol Use Details Unknown Caffeine Use Details Unknown Tobacco Use Status Smoking Status No Information Sex Male Chief Complaint And Reason For Visit No Information Reason For Referral Reason For Referral No Information Plan Of Treatment Date Type Action Status Goal Tobacco cessation counseling completed Goal Tobacco cessation counseling completed Goal Lifestyle education regardin g diet completed History Of Present Illness Encounter Date Complaint History Of Prese nt Illness lower back pain The pain is loca pati in the low back on both sides. The lower back pain radiates into the right knee. Pain intensity is currently 2/10.The pain is described as sharp and stabbing. The following activities make the pain worse: movement and stairs. The following activities make the pain better: lying down, sitting and relaxation. Additional information: Edema R knee. lower back pain The pain is loca pati in the low back on both sides. knee pain The pain is loca pati in the right knee. Pain intensity is currently 5/10.The pain is described as bone on bone. The following activities make the pain worse: standing. The following activities make the pain better: rest and sitting. lower back pain The pain is loca pati in the low back on both sides. Pain intensity is currently 5/10.The pain is described as aching, burning and sharp. The following activities make the pain worse: standing. The following activities make the pain better: rest and sitting. back pain back pain Location of pain is lower back. back pain Severity level i s 7. The problem is stable. It occurs persistently. Location of pain is lower back and CATHERINE Knee's. Functional Status Date Functional Assessmen t No Information Instructions Date Instruction Additional Infor blaire - Requested records to include imaging from [facility] Related to Pain in right knee - Schedule lumbar ep idural sympathetic nerve block, insurance has approved Related to Phantom limb syndrome with pain Post op care:- Wear white abdominal binder for a total of 4-6 weeks, off during showers and at bedtime- Be mindful of BLT's (bending, lifting over head or more than 10lbs, and twisting more than placement of your seatbelt on either side)- Use ice, and ibuprofen as needed to help with pain.- Showers are ok, but no soaking in a bath tub, hot tubs, or any body of water until the incisions are fully healed- Call us if you have any signs of infection or questions- Continue Shall[place] 5-325mg up to 2x/day as needed for post procedure painFollow up:- Follow up with [facility] as needed for reprogram- Follow up as scheduled for post op wound check Related to Radiculopathy, lumbar region - Follow up as sched uled for post-op appointments Related to Type 2 diabetes mellitus with diabetic neuropathy - Follow up with [facility] ch[facility]idy as needed for reprogramming Related to Presence of spinal cord neurostimulator See above Related to Phant om limb syndrome with pain - Requested records to include imaging from [facility] Related to Pain in right knee - Prior authorizatio n started for SCS IPG replacement surgeryRecommend rechargeable IPG - Ordered lumbar epidural sympathetic nerve block*[facility] will call to schedule once insurance approves, if you don't hear back within the next week call at [phone] to check the status of your procedure- Follow up with [facility] per implant team Related to Radiculopathy, lumbar region Giving encouragement to exercise Related to Body mass index [BMI] 45.0-49.9, adult Follow up with spina l cord stimulator [...] with diabetic nephropathy - Follow up with [facility] as scheduled Related to Pain in [...]
--- OUTSIDE RECORDS SUMMARY | 2024-06-27 07:09 | XMS_ITS | Encounter Summary ---
Author Organization [facility] Address [address] [place] [address] Care Team Providers Care [employer] Estates Paralegal Name Role Phone Ben Cadena Primary Care Provider [phone] Angel Mccormick MD Unavailable [phone] Chucho Clement MD Unavailable [phone] Darion So MD Unavailable [phone] Robert Boggs PhD LP Unavailable [phone] Regis Lyons MD Unavailable [phone] Gutierrez Guthrie DO Unavailable [phone] Erick Lagunas MD Unavailable [phone] Analilia, Azucena Veras APRN RAIL DIRECTOR Unavailable Un available Analilia, Azucena Veras APRN RAIL DIRECTOR Unavailable Un available Analilia, Azucena Veras APRN RAIL DIRECTOR Unavailable Un available Chucho Santizo MD Unavailable [phone] Analilia, Azucena Veras APRN RAIL DIRECTOR Unavailable Un available Clinic - [facility] Unavailabl e Encounter Details Date Type Department Care Team (Late st Contact Info) Description 05/08/2022 [facility] Medical Advice [address] [address] Pamela Silvestre Social History Tobacco [...] Assigned at Male 11/29/2020 12:43 PM CDT Legal Sex Male 2:58 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 Gender Identity Male 11/29/2020 12:43 PM CDT Sexual Orientation Choose not to disclose 2021 4:07 PM ITALIAN TEACHER documented as of this encounter Plan of Treatment Upcoming Encounters Date Type Department Care Team ([facility] st Contact Info) Description 09/25/2024 8:30 AM ITALIAN TEACHER Office Visit [facility] [address], [facility] [address] [place] [address] Chucho Santizo MD [address] [place], [place] [address] documented as of this encounter Visit Diagnoses Not on filedocumented in this encounter Additional Health Concerns Assessment Noted Time PHQ-9 Depression Total Score: 2 06/30/20 21 7:02 AM ITALIAN TEACHER documented as of this encounter Care Teams Trust [employer] Estates Paralegal Relationship Specialty Start Date End Date Ben Cadena PCP - General Family Practice 09/04/19 Angel Mccormick MD Family Practice 09/04/19 Chucho Clement MD [address] [place] [address] Orthopedics 09/04/19 Darion So MD [address] [place] [address] Nephrology 12/09/20 Robert Boggs, PhD LP [address] [facility] [address] [place] [address] Assigned Behavioral Health Provider 07/10/21 02/23/23 Regis Lyons MD [address] [facility] [address] [place], [place] [address] Assigned Surgical Provider 08/21/21 02/02/23 Gutierrez Guthrie DO [facility]ckay, [facility] [address] [place], [place] [id number] Orthopaedic Surgery Foot and Ankle Surgery 02/05/23 Erick Lagunas MD [facility] [address] [facility] [address] [place] [address] Assigned Infectious Disease Provider 02/10/23 Azucena Billingsley APRN RAIL DIRECTOR Assigned Pain Medication Provider 06/16/23 08/15/23 Azucena Billingsley APRN RAIL DIRECTOR Assigned PCP 05/09/23 09/13/23 Azucena Billingsley APRN RAIL DIRECTOR Assigned PCP 10/13/23 11/12/23 Chucho Santizo MD [address] [place] [address] Assigned Neuroscience Provider 10/05/23 Azucena Billingsley APRN RAIL DIRECTOR Assigned PCP 09/14/23 10/12/23 [facility] [address] [place] [address] Assigned PCP 11/13/23 documented as of this encounter
--- OUTSIDE RECORDS SUMMARY | 2024-06-27 07:09 | XMS_ITS | Encounter Summary ---
Author Organization [facility] Address [address] [place] [address] Care Team Providers Care Clinician Oncology Name Role Phone Ben Cadena Primary Care Provider [phone] Angel Mccormick MD Unavailable [phone] Chucho Clement MD Unavailable [phone] Darion So MD Unavailable [phone] Robert Boggs PhD LP Unavailable [phone] Regis Lyons MD Unavailable [phone] Gutierrez Guthrie DO Unavailable [phone] Erick Lagunas MD Unavailable [phone] Analilia, Azucena Veras APRN SCRIPT ARTIST Unavailable Un available Analilia, Azucena Veras APRN SCRIPT ARTIST Unavailable Un available Analilia, Azucena Veras APRN SCRIPT ARTIST Unavailable Un available Chucho Santizo MD Unavailable [phone] Analilia, Azucena Veras APRN SCRIPT ARTIST Unavailable Un available Clinic - [facility] Unavailabl e Encounter Details Date Type Department Care Team (Late st Contact Info) Description 10/06/2021 [facility] [address] [place] [address] Chris Norris Social History Tobacco [...] PM CDT Legal Sex Male 2:58 AM MANIPULATIVE THERAPY SPECIALIST Gender Identity Male 11/29/2020 12:43 PM CDT Sexual Orientation Choose not to disclose 2021 4:07 PM MANIPULATIVE THERAPY SPECIALIST documented as of this encounter Plan of Treatment Upcoming Encounters Date Type Department Care Team (Late st Contact Info) Description 09/25/2024 8:30 AM MANIPULATIVE THERAPY SPECIALIST Office Visit [facility] [address], [address] [place] [address] Chucho Santizo MD [address] [place] [address] documented as of this encounter Visit Diagnoses Not on filedocumented in this encounter Additional Health Concerns Assessment Noted Time PHQ-9 Depression Total Score: 2 06/30/20 21 7:02 AM MANIPULATIVE THERAPY SPECIALIST documented as of this encounter Care Teams Clinician Oncology Relationship Specialty Start Date End Date Ben Cadena PCP - General Family Practice 09/04/19 Angel Mccormick MD Family Practice 09/04/19 Chucho Clement MD [address] [place] [address] Orthopedics 09/04/19 Darion So MD [address] [place] [address] Nephrology 12/09/20 Robert Boggs, PhD LP [address] [facility] 741 [place] [address] Assigned Behavioral Health Provider 07/10/21 02/23/23 Regis Lyons MD [address] [facility] [address] [place], [place] [address] Assigned Surgical Provider 08/21/21 02/02/23 Gutierrez Guthrie DO [address], [facility] 200 [place], [place] [phone] Orthopaedic Surgery Foot and Ankle Surgery 02/05/23 Erick Lagunas MD [address] [facility] 300 [place] [address] Assigned Infectious Disease Provider 02/10/23 Azucena Billingsley APRN SCRIPT ARTIST Assigned Pain Medication Provider 06/16/23 08/15/23 Azucena Billingsley APRN SCRIPT ARTIST Assigned PCP 05/09/23 09/13/23 Azucena Billingsley APRN SCRIPT ARTIST Assigned PCP 10/13/23 11/12/23 Chucho Santizo MD [address] [place] [address] Assigned Neuroscience Provider 10/05/23 Azucena Billingsley APRN SCRIPT ARTIST Assigned PCP 09/14/23 10/12/23 [facility] [address] [place] [address] Assigned PCP 11/13/23 documented as of this encounter
--- OUTSIDE RECORDS SUMMARY | 2024-06-27 07:09 | XMS_ITS | Encounter Summary ---
Author Organization [place] Address [address] [place] [address] Care Team Providers Care Bank Compliance Officer Name Role Phone Ben Cadena Primary Care Provider [phone] Angel Mccormick MD Unavailable [phone] Chucho Clement MD Unavailable [phone] Darion So MD Unavailable [phone] Carolina Flanagan PA-C Unavailable + [phone] Robert Boggs PhD LP Unavailable [phone] Milla Ramsay PA-C Unavailable [phone] Regis Lyons MD Unavailable [phone] Gutierrez Guthrie DO Unavailable + [phone] Erick Lagunas MD Unavailable AnalliiaAzucena APRN COMMUNITY DEVELOPMENT AIDE Unavailable Un available AnaliliaAzucena APRN COMMUNITY DEVELOPMENT AIDE Unavailable Un available AnaliliaAzucena APRN COMMUNITY DEVELOPMENT AIDE Unavailable Un available Chucho Santizo MD Unavailable [phone] AnaliliaAzucena APRN COMMUNITY DEVELOPMENT AIDE Unavailable Un available Clinic - [facility] Unavailabl e Encounter Details Date Type Department Care Team (Late st Contact Info) Description 08/15/2021 [facility] [place] [id number] 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 No / Unsure 08/04/2021 8:33 AM CLAY DRY PRESS HELPER documented as of this encounter Plan of Treatment Upcoming Encounters Date Type Department Care Team (Late st Contact Info) Description 09/25/2024 8:30 AM CLAY DRY PRESS HELPER Office Visit [facility] [address], [address] [place] [address] Chucho Santizo MD [address] [place] [address] [id number] documented as of this encounter Visit Diagnoses Not on filedocumented in this encounter Additional Health Concerns Assessment Noted Time PHQ-9 Depression Total Score: 2 06/30/20 21 7:02 AM CLAY DRY PRESS HELPER documented as of this encounter Care Teams Bank Compliance Officer Relationship Specialty Start Date End Date Ben Cadena PCP - General Family Practice 09/04/19 Angel Mccormick MD Family Practice 09/04/19 Chucho Clement MD [address] [facility] [address] [place] [address] Orthopedics 09/04/19 Darion So MD [address] [place] [address] Nephrology 12/09/20 Carolina Flanagan PA-C [address] [facility] 195 [place], [place] 0[address] Assigned Surgical Provider 01/16/21 08/20/21 Robert Boggs, PhD LP [address] [facility] 7[address] [place], [place] 084535 Assigned Behavioral Health Provider 07/10/21 02/23/23 Milla Ramsay PA-C [facility], SURGERY [address] [facility] [address] [place] [address] Assigned Gastroenterology Provider 08/21/21 09/24/21 Regis Lyons MD [address] [id number] Assigned Surgical Provider 08/21/21 02/02/23 Gutierrez Guthrie DO [address], [address] [address] Orthopaedic Surgery Foot and Ankle Surgery 02/05/23 Erick Lagunas MD [facility] Momo Marrero [address] [address] Assigned Infectious Disease Provider 02/10/23 Azucena Billingsley APRN COMMUNITY DEVELOPMENT AIDE Assigned Pain Medication Provider 06/16/23 08/15/23 Azucena Billingsley APRN COMMUNITY DEVELOPMENT AIDE Assigned PCP 05/09/23 09/13/23 Azucena Billingsley APRN COMMUNITY DEVELOPMENT AIDE Assigned PCP 10/13/23 11/12/23 Chucho Santizo MD [address] [place] [address] Assigned Neuroscience Provider 10/05/23 Azucena Billingsley APRN COMMUNITY DEVELOPMENT AIDE Assigned PCP 09/14/23 10/12/23 [facility] [address] [place] [address] Assigned PCP 11/13/23 documented as of this encounter
--- OUTSIDE RECORDS SUMMARY | 2024-06-27 07:09 | XMS_ITS | Encounter Summary ---
Author Organization [place] Address [facility] [place] [address] Care Team Providers Care Mechanical Tech Name Role Phone Ben Cadena Primary Care Provider [phone] Angel Mccormick MD Unavailable [phone] Chucho Clement MD Unavailable [phone] Darion So MD Unavailable [phone] Gutierrez Guthrie DO Unavailable + [phone] Erick Lagnuas MD Unavailable [phone] AnaliliaAzucena APRN FITNESS/WELLNESS DIRECTOR Unavailable Un available Analilia, Azucena Veras APRN FITNESS/WELLNESS DIRECTOR Unavailable Un available Analilia, Azucena Veras APRN FITNESS/WELLNESS DIRECTOR Unavailable Un available BalserChucho MD Unavailable [phone] Analilia, Azucena Veras APRN FITNESS/WELLNESS DIRECTOR Unavailable Un available Clinic - [facility] Unavailabl e Reason for Visit * Reason Onset Date Comments Appointment 06/06/2023 Encounter Details Date Type Department Care Team (Late st Contact Info) Description 06/06/2023 [place] [address] [facility] [address] [place] [address] Erick Lagunas MD [address] [facility] 300 [place] [address] Appointment Social History Tobacco Use [...] How often do you attend chur or yazdanism services? Never 05/29/2023 Do you belong to any clubs o r organizations such as mosque groups, unions, fraternal or athletic groups, or [...] Answer Date Recorded PHQ-2 Score 3 05/29/2023 [facility] Answer [...] you bought just not last and you didn t have money to get more? Patient refused 05/29/2023 Housing Stability Answer Date Recorded Do you have housing? 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 DARNELL spoke to Jenny and she is aware the prescription is being faxed. Wound VAC is to be delivered to patient's home. 12:52 PM KER TABLE WORKER documented in this encounter Miscellaneous Notes * Telephone Encounter - Katerina Davison RN - 06/06/2023 10:09 AM BREAKER TABLE WORKER Ok or video, please change. KER TABLE WORKER * Telephone Encounter - Dona Dickinson CMA - 06/06/2023 10:00 AM BREAKER TABLE WORKER [facility] Call [facility] Phone Message May a detailed message be left on voicemail: yes Reason for Call: Pt is scheduled for follow-up appt with Dr. 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 Call received from pt's [id number] does not think pt would be mobile enough in time for his appt, and is wondering if Dr. Lagunas would be ok with completing this appointment as a virtual visit? Action Taken: Other: Infectious Disease Travel Screening: Not Applicable KER TABLE WORKER documented in this encounter Plan of Treatment Upcoming Encounters Date Type Department Care Team (Late st Contact Info) Description 09/25/2024 8:30 AM BREAKER TABLE WORKER Office Visit [facility] Rehabilitation Clinic [address], [address] [place] [phone] Chucho Santizo MD [address] [place] [address] [id number] documented as of this encounter Visit Diagnoses Not on filedocumented in this encounter Additional Health Concerns Assessment Noted Time PHQ-9 Depression Total Score: 12 023 1:40 PM BREAKER TABLE WORKER documented as of this encounter Care Teams Mechanical Tech Relationship Specialty Start Date End Date Ben Cadena PCP - General Family Practice 09/04/19 Angel Mccormick MD Family Practice 09/04/19 Chucho Clement MD [address] [place], [place] [address] Orthopedics 09/04/19 Darion So MD [address] [place] [phone] Nephrology 12/09/20 Gutierrez Guthrie DO [facility] Vicente Mckay, [facility] 200 [place], [place] [phone] Orthopaedic Surgery Foot and Ankle Surgery 02/05/23 Erick Lagunas MD [address] [place] [address] [facility] 300 [place] [address] Assigned Infectious Disease Provider 02/10/23 Azucena Billingsley APRN FITNESS/WELLNESS DIRECTOR Assigned Pain Medication Provider 06/16/23 08/15/23 Azucena Billingsley APRN FITNESS/WELLNESS DIRECTOR Assigned PCP 05/09/23 09/13/23 Azucena Billingsley APRN FITNESS/WELLNESS DIRECTOR Assigned PCP 10/13/23 11/12/23 Chucho Santizo MD 909 [place] [address] Assigned Neuroscience Provider 10/05/23 Azucena Billingsley APRN FITNESS/WELLNESS DIRECTOR Assigned PCP 09/14/23 10/12/23 [facility] [address] [place] [address] Assigned PCP 11/13/23 documented as of this encounter
--- OUTSIDE RECORDS SUMMARY | 2024-06-27 07:09 | XMS_ITS | Encounter Summary ---
Author Organization [place] Address [address] [facility] [place] [address] Care Team Providers Care Fresco Artist Name Role Phone Ben Cadena Primary Care Provider [phone] Angel Mccormick MD Unavailable [phone] Chucho Clement MD Unavailable [phone] Darion So MD Unavailable [phone] Robert Boggs PhD LP Unavailable [phone] Milla Ramsay PA-C Unavailable [phone] Regis Lyons MD Unavailable [phone] Gutierrez Guthrie DO Unavailable Erick Lagunas MD Unavailable [phone] AnaliliaAzucena APRN HOLLOW WARE MAKER Unavailable Un available AnaliliaAzucena APRN HOLLOW WARE MAKER Unavailable Un available AnaliliaAzucena APRN HOLLOW WARE MAKER Unavailable Un available Chucho Santizo MD Unavailable [phone] AnaliliaAzucena APRN HOLLOW WARE MAKER Unavailable Un available Clinic - [facility] Unavailabl e Encounter Details Date Type Department Care Team (Late st Contact Info) Description 08/29/2021 [facility] Medical Advice UR PREOP/PHASE II 2450 [place] [address] Marichuy Ambrocio Social History Tobacco Use Types Packs/Day [...] PM CDT Legal Sex Male 2:58 AM PLANNING INTERN Gender Identity Male 11/29/2020 12:43 PM CDT Sexual Orientation Choose not to disclose 2021 4:07 PM PLANNING INTERN COVID-19 Exposure Response Date Recorded In the last month, have you been in contact with someone who was confirmed or suspected to have Coronavirus / COVID-19? No / Unsure 08/04/2021 8:33 AM PLANNING INTERN documented as of this encounter Plan of Treatment Upcoming Encounters Date Type Department Care Team (Late st Contact Info) Description 09/25/2024 8:30 AM PLANNING INTERN Office Visit [facility] Physical Medicine and Rehabilitation Clinic [address], [address] [place] [address] Chucho Santizo MD [address] [place] [id number] documented as of this encounter Visit Diagnoses Not on filedocumented in this encounter Additional Health Concerns Assessment Noted Time PHQ-9 Depression Total Score: 2 06/30/20 21 7:02 AM PLANNING INTERN documented as of this encounter Care Teams Fresco Artist Relationship Specialty Start Date End Date Ben Cadena PCP - General Family Practice 09/04/19 Angel Mccormick MD Family Practice 09/04/19 Chucho Clement MD [address] [place] [address] Orthopedics 09/04/19 Darion So MD [address] [place] [address] Nephrology 12/09/20 Robert Boggs, PhD LP [address] [facility] 7[address] [place], [place] [address] Assigned Behavioral Health Provider 07/10/21 02/23/23 Milla Ramsay PA-C [facility], SURGERY [address] [facility] [address] [place] [address] Assigned Gastroenterology Provider 08/21/21 09/24/21 Regis Lyons MD [address] [facility] [address] [place] [address] Assigned Surgical Provider 08/21/21 02/02/23 Gutierrez Guthrie DO [address], [facility] 200 [place], [place] [phone] Orthopaedic Surgery Foot and Ankle Surgery 02/05/23 Erick Lagunas MD [address] Mom[address] Gregg [facility] 300 [place] [address] Assigned Infectious Disease Provider 02/10/23 Azucena Billingsley APRN HOLLOW WARE MAKER Assigned Pain Medication Provider 06/16/23 08/15/23 Azucena Billingsley APRN HOLLOW WARE MAKER Assigned PCP 05/09/23 09/13/23 Azucena Billingsley APRN HOLLOW WARE MAKER Assigned PCP 10/13/23 11/12/23 Chucho Santizo MD [address] [place] [address] Assigned Neuroscience Provider 10/05/23 Azucena Billingsley APRN HOLLOW WARE MAKER Assigned PCP 09/14/23 10/12/23 [facility] [address] [place] [address] Assigned PCP 11/13/23 documented as of this encounter
--- OUTSIDE RECORDS SUMMARY | 2024-06-27 07:09 | XMS_ITS | Encounter Summary ---
Author Organization [place] Address [address] [place] [address] Care Team Providers Care Custom Shop Worker Name Role Phone Ben Cadena Primary Care Provider [phone] Angel Mccormick MD Unavailable [phone] Chucho Clement MD Unavailable [phone] Darion So MD Unavailable [phone] Gutierrez Guthrie DO Unavailable [phone] Erick Lagunas MD Unavailable [phone] Chucho Santizo MD Unavailable [phone] [facility] Unavailabl e Encounter Details Date Type Department Care Team (Late st Contact Info) Description 03/26/2024 [facility] Medicine and Rehabilitation Clinic [address], [address] [place] [address] Chucho Santizo MD [address] [place] [address] Social History Tobacco Use Types Packs/Day [...] often do you attend chur ch or jain services? Never 05/29/2023 Do you belong to any clubs o r organizations such as yazdanism groups, unions, fraternal or athletic groups, or [...] PHQ-2 Answer Date Recorded PHQ-2 Score 3 03/27/2024 [facility] - Occupational Stress Questionnaire Answer Date [...] PM CDT Legal Sex Male 2:58 AM OYSTER FARMER Gender Identity Male 11/29/2020 12:43 PM CDT Sexual Orientation Choose not to disclose 2021 4:07 PM OYSTER FARMER documented as of this encounter Miscellaneous Notes * Telephone Encounter - Leanne Vo LPN - 03/26/2024 2:23 PM CDT Pre-visit phone call- JIG FITTER called pt and reminded them of their upcoming appointment on 03/27/[address] Santizo in the [facility] clinic. Pt stated that the appointment still worked for them. Pt was reminded of where the clinic was located: We are located in the [facility] at [address] [place] [address], [facility] [address], [place]. Our building is located across the street from [facility] and offers free parking in our on-site lot. Please take the stairs or elevator to the second floor of the [facility] and check in at the front load trash truck driver located in the Specialty Clinic, [address]. From Sign In Desk: Department Address: [address] [place] [address], [address] [address] Department Leanne Vo LPN documented in this encounter Plan of Treatment Upcoming Encounters Date Type Department Care Team (Late st Contact Info) Description 09/25/2024 8:30 AM OYSTER FARMER Office Visit [facility] Physical Medicine and Rehabilitation Clinic [address], [address] [place] [address] Chucho Santizo MD [address] [place] [id number] documented as of this encounter Visit Diagnoses Not on filedocumented in this encounter Additional Health Concerns Assessment Noted Time PHQ-9 Depression Total Score: 12 023 1:40 PM OYSTER FARMER documented as of this encounter Care Teams Custom Shop Worker Relationship Specialty Start Date End Date Ben Cadena PCP - General Family Practice 09/04/19 Angel Mccormick MD MD Family Practice 09/04/19 Chucho Clement MD [address] [place] [address] [address] [place] [address] Orthopedics 09/04/19 Darion So MD [address] [place] [address] Nephrology 12/09/20 Gutierrez Guthrie DO [address], [facility] 200 [place], [place] [address] Orthopaedic Surgery Foot and Ankle Surgery 02/05/23 Erick Lagunas MD [address] Momo Marrero [facility] 300 [place] [address] Assigned Infectious Disease Provider 02/10/23 Chucho Santizo MD 909 [place] [address] Assigned Neuroscience Provider 10/05/23 [facility] [address] [place] [address] Assigned PCP 11/13/23 documented as of this encounter
--- OUTSIDE RECORDS SUMMARY | 2024-06-27 07:09 | XMS_ITS | Encounter Summary ---
Author Organization [place] Address [address] [place] [address] Care Team Providers Care Housing And Residence Life Director Name Role Phone Ben Cadena Primary Care Provider [phone] Angel Mccormick MD Unavailable [phone] Chucho Clement MD Unavailable [phone] Darion So MD Unavailable [phone] Gutierrez Guthrie DO Unavailable +[phone] Erick Lagunas MD Unavailable [phone] Chucho Santizo MD Unavailable [phone] [facility] Unavailabl e Encounter Details Date Type Department Care Team (Latest Contact Info) Description 03/24/2024 Travel Social History Tobacco Use Types Packs/Day [...] often do you attend chur ch or yarsanism services? Never 05/29/2023 Do you belong to [...] Answer Date Recorded PHQ-2 Score 3 05/29/2023 [facility] [place] of Occupat ional Health - Occupational Stress [...] in an abandoned building, in an overnight group home, or couch-surfing.) Patient refused 05/29/2023 Are [...] PM CDT Legal Sex Male 2:58 AM UNIVERSITY DEMONSTRATOR Gender Identity Male 11/29/2020 12:43 PM CDT Sexual Orientation Choose not to disclose 2021 4:07 PM UNIVERSITY DEMONSTRATOR documented as of this encounter Plan of Treatment Upcoming Encounters Date Type Department Care Team (Late st Contact Info) Description 09/25/2024 8:30 AM UNIVERSITY DEMONSTRATOR Office Visit [facility] Physical Medicine and Rehabilitation Clinic [address], [address] [place] [address] Chucho Santizo MD [address] [place] [address]52115 documented as of this encounter Visit Diagnoses Not on filedocumented in this encounter Additional Health Concerns Assessment Noted Time PHQ-9 Depression Total Score: 12 023 1:40 PM UNIVERSITY DEMONSTRATOR documented as of this encounter Care Teams Housing And Residence Life Director Relationship Specialty Start Date End Date Ben Cadena PCP - General Family Practice 09/04/19 Angel Mccormick MD Family Practice 09/04/19 Chucho Clement MD [address] [place] [address], [place] [address] Orthopedics 09/04/19 Darion So MD [address] [place] [address] Nephrology 12/09/20 Gutierrez Guthrie DO [facility] Vicente Mckay, [facility] 200 [place] [address] Orthopaedic Surgery Foot and Ankle Surgery 02/05/23 Erick Lagunas MD [address]re[address] [facility] 300 [place] [address] Assigned Infectious Disease Provider 02/10/23 Chucho Santizo MD 909 [place] [address] Assigned Neuroscience Provider 10/05/23 [facility] [address] [place] [address] Assigned PCP 11/13/23 documented as of this encounter
--- OUTSIDE RECORDS SUMMARY | 2024-06-27 07:09 | XMS_ITS | Referral Summary ---
Author Organization [facility] Address [address] [place] [address] Care Team Providers Care Rod Puller And Coiler Name Role Phone Ben Cadena Primary Care Provider [phone] Angel Mccormick MD Unavailable [phone] Chucho Clement MD Unavailable [phone] Darion So MD Unavailable [phone] Gutierrez Guthrie DO Unavailable [phone] Erick Lagunas MD Unavailable [phone] Chucho Santizo MD Unavailable [phone] [facility] Unavailabl e Allergies Active Allergy Reactions Criticality Noted Date Comments Allopurinol Rash Medium 09/13/2019 At high doses, tolerates current dose of 300 mg daily. Amlodipine Swelling 08/09/2017 Edema on 10mg, ok on 5mg. Quinolones Other (See Comments) 07/02/2023 Qtc prolonged Shellfish-Derived Products Hives,Itching 08/06/2023 Intermittently per pt report. Topiramate Hives 01/06/2021 Medications cyanocobalamin (VITAMIN B-12) 1000 MCG tablet Take 1,000 mcg by mouth daily Active vitamin B6 (PYRIDOXINE) 100 MG tablet Take 100 mg by mouth daily Active nitroGLYcerin (NITROSTAT) 0.[address] 0.4 mg under the tongue as needed Every 5 min as needed up to 3 doses 10/03/19 Active metolazone (ZAROXOLYN) 2.5 MG tabletIndications :Edema Take 5 mg by mouth once a week Only on Fridays06/10/20 Active torsemide (DEMADEX) 20 MG tablet Take 80 mg by mouth 2 times daily 03/12/20 Active Cholecalciferol (VITAMIN D3) 50 MCG (1999 UT) CAPS Take 2,000 Units by mouth daily 04/16/20 Active pantoprazole (PROTONIX) 40 MG EC tablet Take 40 mg by mouth daily 05/13/20 Active atorvastatin (LIPITOR) 40 MG tablet Take 40 mg by mouth every morning 08/18/19 Active rOPINIRole (REQUIP) 4 MG tabletIndications :Restless Leg Syndrome Take 4 mg by mouth [...] daily Active polyethylene glycol (MIRALAX) 17 GM/Dose powderIndications :Drug-induced constipation Take 17 g by mouth 2 times daily as needed for constipation 510 g 3 04/14/20 Active KLOR-CON 20 MEQ CR tablet Take 20 mEq by mouth daily 05/24/20 Active aspirin 81 MG EC tabletIndications :Subacute osteomyelitis of left ankle (H),Charcot foot due to diabetes mellitus (H) Take 1 tablet (81 mg) by mouth 2 times daily 60 tablet 06/01/20 Active acetaminophen (TYLENOL) 325 MG tabletIndications :Neuropathic pain of lower extremity, left Take 3 tablets (975 mg) by mouth every 8 hours 90 tablet 1 06/13/20 Active insulin aspart (NOVOLOG FLEXPEN) 100 UNIT/ML penIndications:Ty pe 2 diabetes mellitus with diabetic neuropathy, with long-term current use of insulin (H) Inject 10 Units Subcutaneous 3 times daily (with meals) Plus Sliding Scale 15 mL 06/13/20 23 Active insulin degludec (TRESIBA) 200 UNIT/ML penIndications:Ty pe 2 diabetes mellitus with diabetic neuropathy, with long-term current use of insulin (H) Inject 50 Units Subcutaneous every morning 15 mL 06/13/20 23 Active DULoxetine (CYMBALTA) 30 MG capsuleIndication s:Chronic pain disorder Take 1 capsule (30 mg) by mouth daily 30 capsule 07/10/20 23 Active nortriptyline (PAMELOR) 25 MG capsuleIndication s:Chronic pain disorder Take 1 capsule (25 mg) by mouth at bedtime for 30 days 30 capsule 07/10/20 23 Active OLANZapine (ZYPREXA) 2.5 MG tabletIndications :Insomnia, unspecified type Take 1 tablet (2.5 mg) by mouth nightly as needed (sleep) 14 tablet 07/10/20 23 Active pregabalin (LYRICA) 50 MG capsuleIndication s:Neuropathy Take 1 capsule (50 mg) by mouth 2 times daily 60 capsule 07/10/20 23 Active levothyroxine (SYNTHROID/LEVOTH ROID) 125 MCG tabletIndications :Hypothyroidism (acquired) Take 1 tablet (125 mcg) by mouth daily before breakfast for 30 days 30 tablet 07/11/20 Active Continuous Blood Gluc Sensor (DEXCOM G6 SENSOR) MISC CHANGE EVERY 10 DAYS DIRECTED 07/19/20 23 Active CONTOUR TEST test strip 4 times daily 07/29/19 24 Active CONTOUR TEST test strip 07/30/19 24 Active diclofenac (VOLTAREN) 1 % topical gelIndications:Pa in of left lower leg,Below-knee amputation of left lower extremity, subsequent encounter (H) Apply 2 g topically 4 times daily as needed for moderate pain (Apply before and/or after walking. Do not use if developing blister.). 350 g 3 03/27/20 24 Active Active Problems Problem Noted Date [...] Morbid obesity 12/07/2020 Adenomatous colon polyp 08/17/2020 Overview (10/06/2020): Colonoscopy 07/2020 1 cm polyp, repeat in 3 years Controlled substance agreement signed 04/20/2020 Overview (10/06/2020): Signed 04/20/2020 at [facility] Radha Archer .................... 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 Never 05/29/2023 Do you belong to any clubs o r organizations such as latter-day groups, unions, fraternal or athletic groups, or [...] Answer Date Recorded PHQ-2 Score 3 03/27/2024 [facility] - Occupational Stress [...] PM CDT Legal Sex Male 2:58 AM BATTERY ENGINEER Gender Identity Male 11/29/2020 12:43 PM CDT Sexual Orientation Choose not to disclose 2021 4:07 PM BATTERY ENGINEER Last Filed Vital Signs Vital Sign Reading Time Taken Comments Blood Pressure 132/62 03/27/2024 8:21 AM CDT Pulse 78 08/27/2023 12:39 PM BATTERY ENGINEER Temperature 36.6 C (97.9 F) 08/16/2023 9:29 AM BATTERY ENGINEER Respiratory Rate 18 08/27/2023 12:3 9 PM BATTERY ENGINEER Oxygen Saturation 96% 08/27/2023 12: 39 PM BATTERY ENGINEER Inhaled Oxygen Concentration - - Weight 127.1 kg (280 lb 3.3 oz) 07/08/2023 6:30 AM BATTERY ENGINEER Height 167.6 cm (5' 6) 07/06/2023 4:30 PM BATTERY ENGINEER Body Mass Index 45.23 07/06/2023 4:30 PM BATTERY ENGINEER Plan of Treatment Upcoming Encounters Date Type Department Care Team (Late st Contact Info) Description 09/25/2024 8:30 AM BATTERY ENGINEER Office Visit [facility] [address], [address] [place] [address] Chucho Santizo MD [address] [place] [address] Medical Devices Implanted Type Area Software Release Engineer Device Identifier Shelf Expiration Date Model / Serial / Lot Graft Bone Stimulan Matrix Kit Rapid Cure 10ml 620-010 - [id number] Implanted:Qty : 1 on 07/06/2023 by Gutierrez Guthrie DO at [facility] Bone/Tissue Synthetic Left: Leg [employer] 11/19/2025 620-010 / [id number] / [id number] Explanted Type Area Software Release Engineer Device Identifier Shelf Expiration Date Model / Serial / Lot Arthrocell Plus Alloghraft 5.0 Cc Implanted:Qty: 1 on 11/22/2022 by Gutierrez Guthrie DO at [facility] Explanted:Qty: 1 on 06/01/2023 by Gutierrez Guthrie DO at [facility] Bone/Tissue Synthetic Left: Ankle ARTHREX 07/26/2024 ABS-2089 -05 / [id number] / Arthrocell Plus Allograft, 5.0cc Implanted:Qty: 1 on 11/22/2022 by Gutierrez Guthrie DO at [facility] Explanted:Qty: 1 on 06/01/2023 by Gutierrez Guthrie DO at [facility] Bone/Tissue Synthetic Left: Ankle ARTHREX 07/06/2024 ABS-2089 - / [id number] / Graft Bone Stimulan Matrix Kit Rapid Cure 10ml 620-010 - [id number] Implanted:Qty: 1 on 01/05/2023 by Gutierrez Guthrie DO at [facility] Explanted:Qty: 1 on 06/01/2023 by Gutierrez Guthrie DO at [facility] Bone/Tissue Synthetic Left: Leg [employer] [id number] 07/22/2025 620-010 / [id number] / Bone Cement Simplex Full Dose 6191-1-001 - [id number] Implanted:Qty: 2 on 04/13/2023 by Gutierrez Guthrie DO at [facility] Explanted:Qty: 2 on 06/01/2023 by Gutierrez Guthrie DO at [facility] Cement, Bone Left: Leg [employer] 07/22/2025 6191-1-0 01 / / [id number] Bone Cement Simplex Full Dose 6191-1-001 - [id number] Implanted:Qty: 1 on 04/20/2023 by Gutierrez Guthrie DO at [facility] Explanted:Qty: 1 on 06/01/2023 by Gutierrez Guthrie DO at [facility] Cement, Bone Left: Tibia [employer] [id number] 05/22/2025 6191-1-0 01 / / [id number] Bone Cement Simplex Full Dose 6191-1-001 - [id number] Implanted:Qty: 1 on 04/20/2023 by Gutierrez Guthrie DO at [facility] Explanted:Qty: 1 on 06/01/2023 by Gutierrez Guthrie DO at [facility] Cement, Bone Left: Tibia [employer] 04/21/2025 6191-1-0 01 / / [id number] Scr Bone Locking Shaft 5mm 40mml Ti Partially Th - [id number] Implanted:Qty: 1 on 11/22/2022 by Gutierrez Guthrie DO at [facility] Explanted:Qty: 1 on 04/13/2023 at [facility] Metallic Hardware/Anc hor Left: Ankle [employer] [id number] 07/22/2026 1891-504 0S / / [id number] Imp Scr Strk Lock 5.0x35mm Ft 5035s - [id number] Implanted:Qty: 1 on 11/22/2022 by Gutierrez Guthrie DO at [facility] Explanted:Qty: 1 on 04/13/2023 at [facility] Metallic Hardware/Anc hor Left: Ankle [employer] [id number] 07/22/2027 1896-503 5S / / [id number] Imp Scr Strk Lock 5.0x32.5mm Ft 5032s - [id number] Implanted:Qty: 1 on 11/22/2022 by Gutierrez Guthrie DO at [facility] Explanted:Qty: 1 on 04/13/2023 at [facility] Metallic Hardware/Anc hor Left: Ankle [employer] [id number] 07/22/2027 1896-503 2S / / [id number] Imp Scr Strk Lock 5.0x42.5mm Ft 5042s - [id number] Implanted:Qty: 1 on 11/22/2022 by Gutierrez Guthrie DO at [facility] Explanted:Qty: 1 on 04/13/2023 at [facility] Metallic Hardware/Anc hor Left: Ankle [employer] [id number] 06/21/2027 1896-504 2S / / [id number] 6.5 Cannulated Screw, 6.5 X 100 Implanted:Qty: 1 on 11/22/2022 by Gutierrez Guthrie DO at [facility] Explanted:Qty: 1 on 04/13/2023 at [facility] Metallic Hardware/Anc hor Left: Ankle WILLIAM 621078 / / NA Screw Compression T2 - [id number] Implanted:Qty: 1 on 11/22/2022 by Gutierrez Guthrie DO at [facility] Explanted:Qty: 1 on 04/13/2023 at [facility] Metallic Hardware/Anc hor Left: Ankle [employer] [id number] 07/22/2027 1818-000 1S / / [id number] Imp Nail Strk T2 Ankle Arthrodesis [id number] Lt 1826-1120s - [id number] Implanted:Qty: 1 on 11/22/2022 by Gutierrez Guthrie DO at [facility] Explanted:Qty: 1 on 04/13/2023 at [facility] Metallic Hardware/Anc hor Left: Ankle [employer] [id number] 03/22/2027 1818-112 0S / / [id number] Foot Ring External Fixation 210mm Long Sherine Ii Pvc-F - [id number] Implanted:Qty: 1 on 04/20/2023 by Gutierrez Guthrie DO at [facility] Explanted:Qty: 1 on 06/01/2023 by Gutierrez Guthrie DO at [facility] Metallic Hardware/Anc hor Left: Tibia [employer] 4934-4-2 10 / / Aurora Wire 2 Mm [place] 5101-2-450 Implanted:Qty: 6 on 04/20/2023 by Gutierrez Guthrie DO at [facility] Explanted:Qty: 6 on 06/01/2023 by Gutierrez Guthrie DO at [facility] Metallic Hardware/Anc hor Left: Tibia [employer] 5101-2-4 50 / / Strut Pilar Med 138-201mm Blue - [id number] Implanted:Qty: 4 on 04/20/2023 by Gutierrez Guthrie DO at [facility] Explanted:Qty: 4 on 06/01/2023 by Gutierrez Guthrie, at [facility] Metallic Hardware/Anc hor Left: Tibia [employer] 4933-0-1 40 / / Wire Lavalette Medium Maria Antonia 1.5 To 2.0mm - [id number] Implanted:Qty: 14 on 04/20/2023 by Gutierrez Guthrie DO at [facility] Explanted:Qty: 14 on 06/01/2023 by Gutierrez Guthrie DO at [facility] Metallic Hardware/Anc hor Left: Tibia [employer] 4933-1-0 02 / / Wire Lavalette Long Maria Antonia 1.5 To 2.0mm - [id number] Implanted:Qty: 3 on 04/20/2023 by Gutierrez Guthrie DO at [facility] Explanted:Qty: 3 on 06/01/2023 by Gutierrez Guthrie DO at [facility] Metallic Hardware/Anc hor Left: Tibia [employer] 4933-1-0 03 / / Nut Connecting Short M8 X 6mm - [id number] Implanted:Qty: 31 on 04/20/2023 by Gutierrez Guthrie DO at [facility] Explanted:Qty: 31 on 06/01/2023 by Gutierrez Guthrie DO at [facility] Metallic Hardware/Anc hor Left: Tibia [employer] 4933-1-0 10 / / Lavalette External Fixation 6mm Carbon Sherine Ii Latex-Free - [id number] Implanted:Qty: 14 on 04/20/2023 by Gutierrez Guthrie DO at [facility] Explanted:Qty: 14 on 06/01/2023 by Gutierrez Guthrie DO at [facility] Metallic Hardware/Anc hor Left: Tibia [employer] 4933-1-7 02 / / Washer Orthopedic 4mm Yellow Sherine Ii Pvc-Free - [id number] Implanted:Qty: 9 on 04/20/2023 by Gutierrez Guthrie, DO at [facility] Explanted:Qty: 9 on 06/01/2023 by Gutierrez Guthrie, DO at [facility] Metallic Hardware/Anc hor Left: Tibia [employer] 4933-1-7 12 / / Washer Red 7mm - [id number] Implanted:Qty: 9 on 04/20/2023 by Gutierrez Guthrie, at [facility] Explanted:Qty: 9 on 06/01/2023 by Gutierrez Guthrie, DO at [facility] Metallic Hardware/Anc hor Left: Tibia [employer] 4933-1-7 13 / / Shoes Rocker For Foot Ring 180mm - [id number] Implanted:Qty: 1 on 04/20/2023 by Gutierrez Guthrie, at [facility] Explanted:Qty: 1 on 06/01/2023 by Gutierrez Guthrie DO at [facility] Metallic Hardware/Anc hor Left: Tibia [employer] 4934-8-1 80 / / Nut Connecting M6 - [id number] Implanted:Qty: 4 on 04/20/2023 by Gutierrez Guthrie DO at [facility] Explanted:Qty: 4 on 06/01/2023 by Gutierrez Guthrie, at [facility] Metallic Hardware/Anc hor Left: Tibia [employer] 4933-1-7 01 / / Carbon Fiber Foot Arch 210mm Implanted:Qty: 1 on 04/20/2023 by Gutierrez Guthrie DO at [facility] Explanted:Qty: 1 on 06/01/2023 by Gutierrez Guthrie DO at [facility] Other Left: Tibia WILLIAM 4934-6-2 10 / / Telescopic Motor Strut - Shor, 161-167mm Implanted:Qty: 1 on 04/20/2023 by Gutierrez Guthrie DO at [facility] Explanted:Qty: 1 on 06/01/2023 by Gutierrez Guthrie DO at [facility] Other Left: Tibia [employer] 4934-0-2 10 / / William Hinge Coupling 4933-0-800 Implanted:Qty: 1 on 04/20/2023 by Gutierrez Guthrie DO at [facility] Explanted:Qty: 1 on 06/01/2023 by Gutierrez Guthrie DO at [facility] Other Left: Tibia [employer] 4933-0-8 00 / / Aurora 4934-1-060 Implanted:Qty: 4 on 04/20/2023 by Gutierrez Guthrie DO at [facility] Explanted:Qty: 4 on 06/01/2023 by Gutierrez Guthrie DO at [facility] Other Left: Tibia [employer] 4934-1-0 60 / / Imp Wire Tamara Strk [id number] 1806-0050s - [id number] Explanted:Qty: 1 on 11/22/2022 by Gutierrez Guthrie DO at [facility] Wire Left: Ankle [employer] [id number] 08/22/2027 1806-005 0S / / [id number] Imp Wire Tamara Strk 3.4o659rj 1806-0050s - [id number] Explanted:Qty: 1 on 11/22/2022 by Gutierrez Guthrie DO at [facility] Wire Left: Ankle [employer] [id number] 07/22/2027 1806-005 0S / / [id number] Wire Fixation 2mm 450mml Burna Tip Sherine Ii - [id number] Implanted:Qty: 2 on 04/20/2023 by Gutierrez Guthrie DO at [facility] Explanted:Qty: 2 on 06/01/2023 by Gutierrez Guthrie DO at [facility] Wire Left: Tibia [employer] 4933-8-0 40 / / Procedures Procedure Name Priority Date/Time Associated Diagnosis Comments CBC WITH PLATELETS Routine 08/27/2023 9: 45 AM BATTERY ENGINEER 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, unspecified lower leg, initial encounter (H) BASIC METABOLIC PANEL Routine 07/10/2023 8:16 AM BATTERY ENGINEER HEPATIC FUNCTION PANEL Routine 07/06/2023 6:41 AM BATTERY ENGINEER HEMOGLOBIN A1C Add-On 06/10/2023 6:47 AM BATTERY ENGINEER from Last 3 Months or Most Recently Relevant to Health Maintenance Results * (ABNORMAL) CBC with platelets (08/27/2023 9:45 AM BATTERY ENGINEER) WBC Count 8.1 4.0 - 11.0 10e3/uL 08/27/2023 9:53 AM [facility] RBC Count 3.59(L) 4.40 - 5.90 10e6/uL 08/27/2023 9:53 AM [facility] Hemoglobin 11.5(L) 13.3 - 17.7 g/dL 08/27/2023 9:53 AM [facility] Hematocrit 34.7(L) 40.0 - 53.0 % 08/27/2023 9:53 AM [facility] MCV 97 78 - 100 fL 08/27/2023 9:53 AM [facility] MCH 32.0 26.5 - 33.0 pg 08/27/2023 9:53 AM [facility] MCHC 33.1 31.5 - 36.5 g/dL 08/27/2023 9:53 AM [facility] RDW 16.8(H) 10.0 - 15.0 % 08/27/2023 9:53 AM [facility] Platelet Count 149(L) 150 - 450 10e3/uL 08/27/2023 9:53 AM [facility] Blood BLOOD SPECIMEN / Unknown Venipuncture / Unknown 08/27/2023 9:45 AM BATTERY ENGINEER 08/27/2023 9:46 AM BATTERY ENGINEER us Radha Gonzalez PA-C LAB - BLOOD ORDERABLES F inal Result [facility] [address] [place] [address], [facility] [phone] * (ABNORMAL) Basic metabolic panel (07/10/2023 8:16 AM [facility]) [facility] Sodium 140 135 - 145 mmol/L 07/10/2023 9:19 AM [facility] Comment:Reference intervals for this test were updated on 04/17/2023 to more accurately reflect our healthy population. There may be differences in the flagging of prior results with similar values performed with this method. Interpretation of those prior results can be made in the context of the updated reference intervals. Potassium 3.2(L) 3.4 - 5.3 mmol/L 07/10/2023 9:19 AM [facility] Chloride 98 98 - 107 mmol/L 07/10/2023 9:19 AM [facility] Carbon Dioxide (CO2) 27 22 - 29 mmol/L 07/10/2023 9:19 AM [facility] Anion Gap 15 7 - 15 mmol/L 07/10/2023 9:19 AM [facility] Urea Nitrogen 42.3(H) 8.0 - 23.0 mg/dL 07/10/2023 9:19 AM [facility] Creatinine 2.05(H) 0.67 - 1.17 mg/dL 07/10/2023 9:19 AM [facility] GFR Estimate 36(L) >60 mL/min/1. 73m2 07/10/2023 9:19 AM [facility] Calcium 10.3(H) 8.8 - 10.2 mg/dL 07/10/2023 9:19 AM [facility] Glucose 167(H) 70 - 99 mg/dL 07/10/2023 9:19 AM [facility] Blood BLOOD SPECIMEN / Unknown Venipuncture / Unknown 07/10/2023 8:16 AM BATTERY ENGINEER 07/10/2023 9:05 AM [facility] Stanislaw Venegas MD LAB - BLOOD ORDERABLES Final Result [facility] [address] [address] [phone] * Hepatic panel (07/06/2023 6:41 AM [facility]) Protein Total 8.1 6.4 - 8.3 g/dL 07/06/2023 7:09 AM [facility] Albumin 3.8 3.5 - 5.2 g/dL 07/06/2023 7:09 AM [facility] Bilirubin Total 0.4 <=1.2 mg/dL 07/06/2023 7:09 AM [facility] Alkaline Phosphatase 144 40 - 150 U/L 07/06/2023 7:09 AM [facility] Comment:Reference intervals for this test were updated on 06/05/2023 to more accurately reflect our healthy population. There may be differences in the flagging of prior results with similar values performed with this method. Interpretation of those prior results can be made in the context of the updated reference intervals. AST 36 0 - 45 U/L 07/06/2023 7:09 AM [facility] Comment:Reference intervals for this test were updated on 01/01/2023 to more accurately reflect our healthy population. There may be differences in the flagging of prior results with similar values performed with this method. Interpretation of those prior results can be made in the context of the updated reference intervals. ALT 33 0 - 70 U/L 07/06/2023 7:09 AM [facility] Comment:Reference intervals for this test were updated on 01/01/2023 to more accurately reflect our healthy population. There may be differences in the flagging of prior results with similar values performed with this method. Interpretation of those prior results can be made in the context of the updated reference intervals. Bilirubin Direct <0.20 0.00 - 0.30 mg/dL 07/06/2023 7:09 AM [facility] Blood BLOOD SPECIMEN / Unknown Venipuncture / Unknown 07/06/2023 6:41 AM BATTERY ENGINEER 07/06/2023 6:45 AM [facility] Stanislaw Venegas MD LAB - BLOOD ORDERABLES Final Result [facility] [address] [facility] [address] [address], [facility] [phone] * (ABNORMAL) Hemoglobin A1c (06/10/2023 6:47 AM BATTERY ENGINEER) Hemoglobin A1C 7.2(H) <5.7 % 06/10/2023 8:28 AM BATTERY ENGINEER [facility] Comment: Normal <5.7% Prediabetes 5.7-6.4% Diabetes 6.5% or higher Note: Adopted from ADA consensus guidelines. Blood STRUCTURE OF RIGHT UPPER LIMB / Unknown Venipuncture / Unknown 06/10/2023 6:47 AM BATTERY ENGINEER 06/10/2023 6:53 AM BATTERY ENGINEER Danay Prince MD LAB - BLOOD ORDERABLES Final Res ult [facility] [address] [facility] [address] [address], [facility] [phone] from Last 3 Months or Most Recently Relevant to Health Maintenance Insurance [place] [facility] [place] [facility] Advance Directives For more information, please contact: [phone] * Full Code (Latest Code Status on [...] patie nt/ legal decision maker Care Teams Rod Puller And Coiler Relationship Specialty Start Date End Date Ben Cadena PCP - General Family Practice 09/04/19 Angel Mccormick MD [place] Family Practice 09/04/19 Chucho Clement MD [address] [place] [address] Orthopedics 09/04/19 Darion So MD [address] [place] [id number] Nephrology 12/09/20 Gutierrez Guthrie DO [address], [address] [address] Orthopaedic Surgery Foot and Ankle Surgery 02/05/23 Erick Lagunas MD [address] [place] [address] Assigned Infectious Disease Provider 02/10/23 Chucho Santizo MD [address] [place] [address] Assigned Neuroscience Provider 10/05/23 [facility] [address] [place] [address] Assigned PCP 11/13/23
--- OUTSIDE RECORDS SUMMARY | 2024-06-27 07:09 | XMS_ITS | Encounter Summary ---
Author Organization [place] Address [address] [place] [address] Care Team Providers Care Deboning Team Leader Name Role Phone Ben Cadena Primary Care Provider [phone] Angel Mccormick MD Unavailable [phone] Chucho Clement MD Unavailable [phone] Darion So MD Unavailable +[phone] Carolina Flanagan PA-C Unavailable + [phone] Robert Boggs PhD LP Unavailable +[phone] Milla Ramsay PA-C Unavailable +[phone] Regis Lyons MD Unavailable +[phone] Gutierrez Guthrie DO Unavailable + [phone] Erick Lagunas MD Unavailable AnaliliaAzucena APRN FINISH REMOVER Unavailable Un available AnaliliaAzucena APRN FINISH REMOVER Unavailable Un available AnaliliaAzucena APRN FINISH REMOVER Unavailable Un available Chucho Santizo MD Unavailable [phone] AnaliliaAzucena APRN FINISH REMOVER Unavailable Un available Clinic - [facility] Unavailabl e Encounter Details Date Type Department Care Team (Late st Contact Info) Description 08/10/2021 [facility] [place] [id number] [facility] SE 5th [place] [address] Leanne Andrew, BORIS Social History [...] PM CDT Legal Sex Male 2:58 AM EQUITY DIRECTOR Gender Identity Male 11/29/2020 12:43 PM CDT Sexual Orientation Choose not to disclose 2021 4:07 PM EQUITY DIRECTOR COVID-19 Exposure Response Date Recorded In the last month, have you been in contact with someone who was confirmed or suspected to have Coronavirus / COVID-19? No / Unsure 08/04/2021 8:33 AM EQUITY DIRECTOR documented as of this encounter Plan of Treatment Upcoming Encounters Date Type Department Care Team (Late st Contact Info) Description 09/25/2024 8:30 AM EQUITY DIRECTOR Office Visit [facility] Rehabilitation Clinic [address], [facility] 200 [place] [address] Chucho Santzio MD [address] [place] [address] [id number] documented as of this encounter Visit Diagnoses Not on filedocumented in this encounter Additional Health Concerns Assessment Noted Time PHQ-9 Depression Total Score: 2 06/30/20 21 7:02 AM EQUITY DIRECTOR documented as of this encounter Care Teams Deboning Team Leader Relationship Specialty Start Date End Date Ben Cadena PCP - General Family Practice 09/04/19 Angel Mccormick MD Family Practice 09/04/19 Chucho Clement MD [address] [place] [address] Orthopedics 09/04/19 Darion So MD [address] [place] [phone] Nephrology 12/09/20 Carolina Flanagan PA-C [address] [facility] 195 [place] [address] Assigned Surgical Provider 01/16/21 08/20/21 Robert Boggs, PhD LP [address] [facility] 741 [place] [address] Assigned Behavioral Health Provider 07/10/21 02/23/23 Milla Ramsay PA-C [facility], SURGERY 909 [facility] [address] [place] [address] Assigned Gastroenterology Provider 08/21/21 09/24/21 Regis Lyons MD [address] [facility] 195 [place], [place] [address] Assigned Surgical Provider 08/21/21 02/02/23 Gutierrez Guthrie DO [address], [address] [address] Orthopaedic Surgery Foot and Ankle Surgery 02/05/23 Erick Lagunas MD [address] [facility] 300 [place] [address] Assigned Infectious Disease Provider 02/10/23 Azucena Billingsley APRN FINISH REMOVER Assigned Pain Medication Provider 06/16/23 08/15/23 Azucena Billingsley APRN FINISH REMOVER Assigned PCP 05/09/23 09/13/23 Azucena Billingsley APRN FINISH REMOVER Assigned PCP 10/13/23 11/12/23 Chucho Santizo MD [address] [place] [address] Assigned Neuroscience Provider 10/05/23 Azucena Billingsley APRN FINISH REMOVER Assigned PCP 09/14/23 10/12/23 [facility] [address] [place] [address] Assigned PCP 11/13/23 documented as of this encounter
--- OUTSIDE RECORDS SUMMARY | 2024-06-27 07:09 | XMS_ITS | Encounter Summary ---
Author Organization [place] Address [address] [place] [address] Care Team Providers Care V Belt Curer Name Role Phone Ben Cadena Primary Care Provider [phone] Angel Mccormick MD Unavailable [phone] Chucho Clement MD Unavailable +[phone] Darion So MD Unavailable [phone] Robert Boggs PhD LP Unavailable +[phone] Milla Ramsay PA-C Unavailable +[phone] Regis Lyons MD Unavailable +[phone] Gutierrez Guthrie DO Unavailable + [phone] Erick Lagunas MD Unavailable +[phone] AnaliliaAzucena APRN CHARGEBACK ANALYST Unavailable Un available AnaliliaAzucena APRN CHARGEBACK ANALYST Unavailable Un available AnaliliaAzucena APRN CHARGEBACK ANALYST Unavailable Un available Chucho Santizo MD Unavailable [phone] AnaliliaAzucena APRN CHARGEBACK ANALYST Unavailable Un available Clinic - [facility] Unavailabl e Encounter Details Date Type Department Care Team (Late st Contact Info) Description 08/23/2021 [facility] [place] [address] [facility] SE 4th [place] [address] Aishwarya Young, RN Social History [...] PM CDT Legal Sex Male 2:58 AM SEXOLOGIST Gender Identity Male 11/29/2020 12:43 PM CDT Sexual Orientation Choose not to disclose 2021 4:07 PM SEXOLOGIST COVID-19 Exposure Response Date Recorded In the last month, have you been in contact with someone who was confirmed or suspected to have Coronavirus / COVID-19? No / Unsure 08/04/2021 8:33 AM SEXOLOGIST documented as of this encounter Plan of Treatment Upcoming Encounters Date Type Department Care Team (Late st Contact Info) Description 09/25/2024 8:30 AM SEXOLOGIST Office Visit [facility] Physical Medicine and Rehabilitation Clinic [address], [address] [phone] Chucho Santizo MD [address] [place] [address] documented as of this encounter Visit Diagnoses Not on filedocumented in this encounter Additional Health Concerns Assessment Noted Time PHQ-9 Depression Total Score: 2 06/30/20 21 7:02 AM SEXOLOGIST documented as of this encounter Care Teams V Belt Curer Relationship Specialty Start Date End Date Ben Cadena PCP - General Family Practice 09/04/19 Angel Mccormick MD Family Practice 09/04/19 Chucho Clement MD [address] [place] [address] Orthopedics 09/04/19 Darion So MD [address] [place] [address] Nephrology 12/09/20 Robert Boggs, PhD LP 420 [facility] 741 [place], [place] [address] Assigned Behavioral Health Provider 07/10/21 02/23/23 Milla Ramsay PA-C [facility], SURGERY 909 [facility] [address]TH [place] [address] Assigned Gastroenterology Provider 08/21/21 09/24/21 Regis Lyons MD 420 [facility] 195 [place] [address] Assigned Surgical Provider 08/21/21 02/02/23 Gutierrez Guthrie DO [address], [facility] 200 [place] [address] Orthopaedic Surgery Foot and Ankle Surgery 02/05/23 Erick Lagunas MD [address] [facility] 300 [place] [address] Assigned Infectious Disease Provider 02/10/23 Azucena Billingsley APRN CHARGEBACK ANALYST Assigned Pain Medication Provider 06/16/23 08/15/23 Azucena Billingsley APRN CHARGEBACK ANALYST Assigned PCP 05/09/23 09/13/23 Azucena Billingsley APRN CHARGEBACK ANALYST Assigned PCP 10/13/23 11/12/23 Chucho Santizo MD [address] [place] [address] Assigned Neuroscience Provider 10/05/23 Azucena Billingsley APRN CHARGEBACK ANALYST Assigned PCP 09/14/23 10/12/23 [facility] [address] [place] [address] Assigned PCP 11/13/23 documented as of this encounter
--- OUTSIDE RECORDS SUMMARY | 2024-06-27 07:09 | XMS_ITS | Encounter Summary ---
Author Organization [place] Address [address] [place] [address] Care Team Providers Care Paint Line Operator Name Role Phone Ben Cadena Primary Care Provider [phone] Angel Mccormick MD Unavailable [phone] Chucho Clement MD Unavailable [phone] Darion So MD Unavailable [phone] Robert Boggs PhD LP Unavailable +[phone] Milla Ramsay PA-C Unavailable +[phone] Regis Lyons MD Unavailable +[phone] Gutierrez Guthrie DO Unavailable + [phone] Erick Lagunas MD Unavailable +[phone] AnaliliaAzucena APRN PERSONAL SUPPORT WORKER Unavailable Un available AnaliliaAzucena APRN PERSONAL SUPPORT WORKER Unavailable Un available AnaliliaAzucena APRN PERSONAL SUPPORT WORKER Unavailable Un available Chucho Santizo MD Unavailable [phone] AnaliliaAzucena APRN PERSONAL SUPPORT WORKER Unavailable Un available Clinic - [facility] Unavailabl e Encounter Details Date Type Department Care Team (Late st Contact Info) Description 08/23/2021 [facility] Weight Management Clinic [place] [address] [facility] SE 4th [place] [address] Aishwarya Young, RN Social History [...] PM CDT Legal Sex Male 2:58 AM ROLL DOUGH DIVIDER Gender Identity Male 11/29/2020 12:43 PM CDT Sexual Orientation Choose not to disclose 2021 4:07 PM ROLL DOUGH DIVIDER COVID-19 Exposure Response Date Recorded In the last month, have you been in contact with someone who was confirmed or suspected to have Coronavirus / COVID-19? No / Unsure 08/04/2021 8:33 AM ROLL DOUGH DIVIDER documented as of this encounter Plan of Treatment Upcoming Encounters Date Type Department Care Team (Late st Contact Info) Description 09/25/2024 8:30 AM ROLL DOUGH DIVIDER Office Visit [facility] Physical Medicine and Rehabilitation Clinic [address], [address] [phone] Chucho Santizo MD [address] [place] [address]37[address] documented as of this encounter Visit Diagnoses Not on filedocumented in this encounter Additional Health Concerns Assessment Noted Time PHQ-9 Depression Total Score: 2 06/30/20 21 7:02 AM ROLL DOUGH DIVIDER documented as of this encounter Care Teams Paint Line Operator Relationship Specialty Start Date End Date Ben Cadena PCP - General Family Practice 09/04/19 Angel Mccormick MD Family Practice 09/04/19 Chucho Clement MD [address] [place] [address] Orthopedics 09/04/19 Darion So MD [address] [place] [address] Nephrology 12/09/20 Robert Boggs, PhD LP 420 [facility] 741 [place], [place] [address] Assigned Behavioral Health Provider 07/10/21 02/23/23 Milla Ramsay PA-C [facility], SURGERY 909 [facility] [address]TH [place] [address] Assigned Gastroenterology Provider 08/21/21 09/24/21 Regis Lyons MD 420 [facility] 195 [place] [address] Assigned Surgical Provider 08/21/21 02/02/23 Gutierrez Guthrie DO [address], [facility] 200 [place] [address] Orthopaedic Surgery Foot and Ankle Surgery 02/05/23 Erick Lagunas MD [address] [facility] 300 [place] [address] Assigned Infectious Disease Provider 02/10/23 Azucena Billingsley APRN PERSONAL SUPPORT WORKER Assigned Pain Medication Provider 06/16/23 08/15/23 Azucena Billingsley APRN PERSONAL SUPPORT WORKER Assigned PCP 05/09/23 09/13/23 Azucena Billingsley APRN PERSONAL SUPPORT WORKER Assigned PCP 10/13/23 11/12/23 Chucho Santizo MD [address] [place] [address] Assigned Neuroscience Provider 10/05/23 Azucena Billingsley APRN PERSONAL SUPPORT WORKER Assigned PCP 09/14/23 10/12/23 [facility] [address] [place] [address] Assigned PCP 11/13/23 documented as of this encounter
--- OUTSIDE RECORDS SUMMARY | 2024-06-27 07:09 | XMS_ITS | Encounter Summary ---
Author Organization [place] Address [address] [place] [address] Care Team Providers Care Cable Armorer Name Role Phone Ben Cadena Primary Care Provider [phone] Angel Mccormick MD Unavailable [phone] Chucho Clement MD Unavailable [phone] Darion So MD Unavailable [phone] Robert Boggs PhD LP Unavailable +[phone] Milla Ramsay PA-C Unavailable [phone] Regis Lyons MD Unavailable +[phone] Gutierrez Guthrie DO Unavailable + [phone] Erick aLgunas MD Unavailable [phone] AnaliliaAzucena APRN BACON SKIN LIFTER Unavailable Un available Analilia, Azucena Veras APRN BACON SKIN LIFTER Unavailable Un available AnaliliaAzucena APRN BACON SKIN LIFTER Unavailable Un available Chucho Santizo MD Unavailable [phone] AnaliliaAzucena APRN BACON SKIN LIFTER Unavailable Un available Clinic - [facility] Unavailabl e Encounter Details Date Type Department Care Team (Late st Contact Info) Description 09/15/2021 [facility] Hung [facility] Weight Management Clinic [place] 909 [facility] SE 4th [place] [address] Regis Lyons MD 420 [facility] 195 [place] [address] Social History Tobacco Use Types [...] PM CDT Legal Sex Male 2:58 AM MARKET DIRECTOR Gender Identity Male 11/29/2020 12:43 PM CDT Sexual Orientation Choose not to disclose 2021 4:07 PM MARKET DIRECTOR documented as of this encounter Plan of Treatment Upcoming Encounters Date Type Department Care Team (Late st Contact Info) Description 09/25/2024 8:30 AM MARKET DIRECTOR Office Visit [facility] Physical Medicine and Rehabilitation Clinic [address], [address] [phone] Chucho Santizo MD [address] [place] [address] documented as of this encounter Visit Diagnoses Not on filedocumented in this encounter Additional Health Concerns Assessment Noted Time PHQ-9 Depression Total Score: 2 06/30/20 21 7:02 AM MARKET DIRECTOR documented as of this encounter Care Teams Cable Armorer Relationship Specialty Start Date End Date Ben Cadena PCP - General Family Practice 09/04/19 Angel Mccormick MD Family Practice 09/04/19 Chucho Clement MD [address] [place] [address] Orthopedics 09/04/19 Darion So MD [address] [place] [address] Nephrology 12/09/20 Robert Boggs, PhD LP 420 [facility] 741 [place], [place] 629[address] Assigned Behavioral Health Provider 07/10/21 02/23/23 Milla Ramsay PA-C [facility], SURGERY 909 [facility] [address] [place], [place] [address] Assigned Gastroenterology Provider 08/21/21 09/24/21 Regis Lyons MD 420 [facility] 195 [place], [place] [address] Assigned Surgical Provider 08/21/21 02/02/23 Gutierrez Guthrie DO [address], [email or web address] 200 [place], [place] [id number] Orthopaedic Surgery Foot and Ankle Surgery 02/05/23 Erick Lagunas MD [address] [facility] [[email or web address] 300 [place], [place] [address] Assigned Infectious Disease Provider 02/10/23 Azucena Billingsley APRN BACON SKIN LIFTER Assigned Pain Medication Provider 06/16/23 08/15/23 Azucena Billingsley APRN BACON SKIN LIFTER Assigned PCP 05/09/23 09/13/23 Azucena Billingsley APRN BACON SKIN LIFTER Assigned PCP 10/13/23 11/12/23 Chucho Santizo MD [address] [place] [address] Assigned Neuroscience Provider 10/05/23 Azucena Billingsley APRN BACON SKIN LIFTER Assigned PCP 09/14/23 10/12/23 [facility] [address] [place] [address] Assigned PCP 11/13/23 documented as of this encounter
--- OUTSIDE RECORDS SUMMARY | 2024-06-27 07:09 | XMS_ITS | Encounter Summary ---
Author Organization [place] Address [address] [place] [address] Care Team Providers Care Shipping Hand Name Role Phone Ben Cadena Primary Care Provider [phone] Angel Mccormick MD Unavailable [phone] Chucho Clement MD Unavailable [phone] Darion So MD Unavailable [phone] Carolina Flanagan PA-C Unavailable + [phone] Robert Boggs PhD LP Unavailable +[phone] Milla Ramsay PA-C Unavailable +[phone] Regis Lyons MD Unavailable +[phone] Gutierrez Guthrie DO Unavailable + [phone] Erick Lagunas MD Unavailable +[phone] AnaliliaAzucena APRN GREEK PROFESSOR Unavailable Un available AnaliliaAzucena APRN GREEK PROFESSOR Unavailable Un available AnaliliaAzucena chilel APRN GREEK PROFESSOR Unavailable Un available Chucho Santizo MD Unavailable [phone] AnaliliaAzucena APRN GREEK PROFESSOR Unavailable Un available Clinic - [facility] Unavailabl e Reason for Visit * Reason Onset Date Comments Call Back 08/17/2021 Encounter Details Date Type Department Care Team (Late st Contact Info) Description 08/17/2021 [facility] Weight Management Clinic [place] [address] [facility] 4th [place] [address] Rimma Lashanda, [place] 909 [place] [address] Call Back Social History Tobacco Use Types [...] PM CDT Legal Sex Male 2:58 AM FLANGE 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 Gender Identity Male 11/29/2020 12:43 PM CDT Sexual Orientation Choose not to disclose 2021 4:07 PM FLANGE 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 COVID-19 Exposure Response Date Recorded In the last month, have you been in contact with someone who was confirmed or suspected to have Coronavirus / COVID-19? No / Unsure 08/04/2021 8:33 AM FLANGE 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 documented as of this encounter Miscellaneous Notes * Telephone Encounter - Tiana Granados - 08/17/2021 2:44 PM FLANGE 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 Reason for call: Other Patient called regarding [...] to reach patient: Home number on file [phone] (home) Best Time: anytime Can we leave a detailed message on this number? YES Travel screening: Not Applicable GE 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 documented in this encounter Plan of Treatment Upcoming Encounters Date Type Department Care Team (Late st Contact Info) Description 09/25/2024 8:30 AM FLANGE 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 Office Visit [facility] Physical Medicine and Rehabilitation Clinic [address], [address] [place] [address] Chucho Santizo MD 909 [place] [address] documented as of this encounter Visit Diagnoses Not on filedocumented in this encounter Additional Health Concerns Assessment Noted Time PHQ-9 Depression Total Score: 2 06/30/20 21 7:02 AM FLANGE 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 documented as of this encounter Care Teams Shipping Hand Relationship Specialty Start Date End Date Ben Cadena PCP - General Family Practice 09/04/19 Angel Mccormick MD Family Practice 09/04/19 Chucho Clement MD [facility] [place] [address] Orthopedics 09/04/19 aDrion So MD [facility] [place] [address] Nephrology 12/09/20 Carolina Flanagan PA-C [address] [place] [address] Assigned Surgical Provider 01/16/21 08/20/21 Robert Boggs, PhD LP 420 [facility] 741 [place] [address] Assigned Behavioral Health Provider 07/10/21 02/23/23 Milla Ramsay PA-C [facility], SURGERY 909 [facility] [address] [place] [address] Assigned Gastroenterology Provider 08/21/21 09/24/21 Regis Lyons MD 420 [facility] 195 [place] [address] Assigned Surgical Provider 08/21/21 02/02/23 Gutierrez Guthrie DO [facility] Vicente Mckay, [facility] 200 [place], [place] [phone] Orthopaedic Surgery Foot and Ankle Surgery 02/05/23 Erick Lagunas MD [address] [place] [address] [facility] 300 [place], [place] [address] Assigned Infectious Disease Provider 02/10/23 Azucena Billingsley APRN GREEK PROFESSOR Assigned Pain Medication Provider 06/16/23 08/15/23 Azucena Billingsley APRN GREEK PROFESSOR Assigned PCP 05/09/23 09/13/23 Azucena Billingsley APRN GREEK PROFESSOR Assigned PCP 10/13/23 11/12/23 Chucho Santizo MD [address] [place] [address] Assigned Neuroscience Provider 10/05/23 Azucena Billingsley APRN GREEK PROFESSOR Assigned PCP 09/14/23 10/12/23 Clinic - [facility] [address] [place] [address] Assigned PCP 11/13/23 documented as of this encounter
--- OUTSIDE RECORDS SUMMARY | 2024-06-27 07:09 | XMS_ITS | Clinical Summary ---
Author Organization [facility] Address [address] [place] [address] Care Team Providers Care Social Sciences Research Scientist Name Role Phone Ben Cadena Primary Care Provider [phone] Angel Mccormick MD Unavailable [phone] Chucho Clement MD Unavailable [phone] Darion So MD Unavailable [phone] Gutierrez Guthrie DO Unavailable [phone]- [phone] Erick Lagunas MD Unavailable Chucho Santizo MD Unavailable [phone] [facility] Unavailabl e Allergies Active Allergy Reactions [...] signed 04/20/2020 Overview (10/06/2020): Signed 04/20/2020 at [facility] Radha Archer .................... 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 Never 05/29/2023 Do you belong to any clubs o r organizations such as samaritan groups, unions, fraternal or athletic groups, or [...] Answer Date Recorded PHQ-2 Score 3 03/27/2024 [facility] - Occupational Stress [...] in an abandoned building, in an overnight long-term, or couch-surfing.) Patient refused 05/29/2023 Are you [...] PM CDT Legal Sex Male 2:58 AM FILTER PRESS TENDER Gender Identity Male 11/29/2020 12:43 PM CDT Sexual Orientation Choose not to disclose 2021 4:07 PM FILTER PRESS TENDER Last Filed Vital Signs Vital Sign Reading Time Taken Comments Blood Pressure 132/62 03/27/2024 8:21 AM CDT Pulse 78 08/27/2023 12:39 PM FILTER PRESS TENDER Temperature 36.6 C (97.9 F) 08/16/2023 9:29 AM FILTER PRESS TENDER Respiratory Rate 18 08/27/2023 12:3 9 PM FILTER PRESS TENDER Oxygen Saturation 96% 08/27/2023 12: 39 PM FILTER PRESS TENDER Inhaled Oxygen Concentration - - Weight 127.1 kg (280 lb 3.3 oz) 07/08/2023 6:30 AM FILTER PRESS TENDER Height 167.6 cm (5' 6) 07/06/2023 4:30 PM FILTER PRESS TENDER Body Mass Index 45.23 07/06/2023 4:30 PM FILTER PRESS TENDER Plan of Treatment Upcoming Encounters Date Type Department Care Team (Late st Contact Info) Description 09/25/2024 8:30 AM FILTER PRESS TENDER Office Visit [facility] [address], [address] [place] [address] Chucho Santizo MD [address] [place] [address] Health Maintenance Due Date Last Done Comments ANNUAL REVIEW OF HM ORDERS 1961 CT COLONOGRAPHY 1961 DIABETIC FOOT EXAM 1961 FLEX SIG 1961 HF ACTION PLAN 1961 LIPID 1961 MICROALBUMIN 1961 PARATHYROID 1961 PHOSPHORUS 1961 TSH W/FREE T4 REFLEX 1961 YEARLY PREVENTIVE VISIT 1961 sDNA (Cologuard) 1961 URINALYSIS 1962 HIV SCREENING 1976 HEPATITIS C SCREENING 10/04/1979 COVID-19 Vaccine (3 - Moderna risk series) 12/03/2020 11/05/2020, 10/08/2020 FIT 07/29/2021 07/29/2020 RSV VACCINE (1 - Risk 60-74 years 1-dose series) 2021 A1C 09/10/2023 06/10/2023, 01/05/2023 BMP 10/09/2023 07/10/2023, 06/22, 07/07/2023, Additional history exists HEMOGLOBIN 02/25/2024 08/27/2023, 06/22, 07/08/2023, Additional history exists INFLUENZA VACCINE (#1) 2024 ALT 07/06/2024 07/06/2023, 06/22, 06/12/2023, Additional history exists CBC 08/27/2024 08/27/2023, 06/22, 07/05/2023, Additional history exists EYE EXAM 01/09/2025 01/10/2024, 06/10/2023, 02/16/2023 ADVANCE CARE PLANNING 05/29/2028 05/29/2023 DTAP/TDAP/TD IMMUNIZATION (2 - Td or Tdap) 02/11/2030 02/12/2020 COLONOSCOPY 08/16/2030 08/16/2020 COLORECTAL CANCER SCREENING 08/16/2030 ZOSTER IMMUNIZATION Completed 09/18/2018, 9 ALK PHOS Completed 07/06/2023, 06/22, 06/12/2023, Additional history exists Pneumococcal Vaccine: Pediatrics (0 to 5 Years) and At-Risk Patients (6 to 64 Years) Completed 03/11/2024 PHQ-2 (once per calendar year) Completed 03/27/2024, 03/27/2024, 05/29/2023, Additional history exists HPV IMMUNIZATION Aged Out No longer e ligible based on patient's age to complete this topic MENINGITIS IMMUNIZATION Aged Out No l onger eligible based on patient's age to complete this topic RSV MONOCLONAL ANTIBODY Aged Out No l onger eligible based on patient's age to complete this topic Medical Devices Implanted Type Area Python Architect Device Identifier Shelf Expiration Date Model / Serial / Lot Graft Bone Stimulan Matrix Kit Rapid Cure 10ml 620-010 - [id number] Implanted:Qty : 1 on 07/06/2023 by Gutierrez Guthrie DO at [facility] Bone/Tissue Synthetic Left: Leg [employer] 11/19/2025 620-010 / [id number] / [id number] Explanted Type Area Python Architect Device Identifier Shelf Expiration Date Model / Serial / Lot Arthrocell Plus Alloghraft 5.0 Cc Implanted:Qty: 1 on 11/22/2022 by Gutierrez Guthrie DO at [facility] Explanted:Qty: 1 on 06/01/2023 by Gutierrez Guthrie DO at [facility] Bone/Tissue Synthetic Left: Ankle ARTHREX 07/26/2024 ABS-2089 / [id number] / Arthrocell Plus Allograft, 5.0cc Implanted:Qty: 1 on 11/22/2022 by Gutierrez Guthrie DO at [facility] Explanted:Qty: 1 on 06/01/2023 by Gutierrez Guthrie DO at [facility] Bone/Tissue Synthetic Left: Ankle ARTHREX 07/06/2024 ABS-2089 / [id number] / Graft Bone Stimulan Matrix Kit Rapid Cure 10ml 620-010 - [id number] Implanted:Qty: 1 on 01/05/2023 by Gutierrez Guthrie DO at [facility] Explanted:Qty: 1 on 06/01/2023 by Gutierrez Guthrie DO at [facility] Bone/Tissue Synthetic Left: Leg [employer] [id number] 07/22/2025 620-010 / [id number] / Bone Cement Simplex Full Dose 6191-1-001 - [id number] Implanted:Qty: 2 on 04/13/2023 by Gutierrez Guthrie DO at [facility] Explanted:Qty: 2 on 06/01/2023 by Gutierrez Guthrie DO at [facility] Cement, Bone Left: Leg [employer] 07/22/2025 6191-1-0 01 / / [id number] Bone Cement Simplex Full Dose 6191-1-001 - [id number] Implanted:Qty: 1 on 04/20/2023 by Gutierrez Guthrie, at [facility] Explanted:Qty: 1 on 06/01/2023 by Gutierrez Guthrie, DO at [facility] Cement, Bone Left: Tibia [employer] [id number] 05/22/2025 6191-1-0 01 / / [id number] Bone Cement Simplex Full Dose 6191-1-001 - [id number] Implanted:Qty: 1 on 04/20/2023 by Gutierrez Guthrie DO at [facility] Explanted:Qty: 1 on 06/01/2023 by Gutierrez Guthrie, at [facility] Cement, Bone Left: Tibia [employer] 04/21/2025 6191-1-0 01 / / [id number] Scr Bone Locking Shaft 5mm 40mml Ti Partially Th - [id number] Implanted:Qty: 1 on 11/22/2022 by Gutierrez Guthrie DO at [facility] Explanted:Qty: 1 on 04/13/2023 at [facility] Metallic Hardware/Anc hor Left: Ankle [employer] [id number] 07/22/2026 1891-504 0S / / [id number] Imp Scr Strk Lock 5.0x35mm Ft 5035s - [id number] Implanted:Qty: 1 on 11/22/2022 by Gutierrez Guthrie DO at [facility] Explanted:Qty: 1 on 04/13/2023 at [facility] Metallic Hardware/Anc hor Left: Ankle [employer] [id number] 07/22/2027 1896-503 5S / / [id number] Imp Scr Strk Lock 5.0x32.5mm Ft 6-5032s - [id number] Implanted:Qty: 1 on 11/22/2022 by Gutierrez Guthrie DO at [facility] Explanted:Qty: 1 on 04/13/2023 at [facility] Metallic Hardware/Anc hor Left: Ankle [employer] [id number] 07/22/2027 1896-503 2S / / [id number] Imp Scr Strk Lock 5.0x42.5mm Ft 1896-5042s - [id number] Implanted:Qty: 1 on 11/22/2022 by Gutierrez Guthrie DO at [facility] Explanted:Qty: 1 on 04/13/2023 at [facility] Metallic Hardware/Anc hor Left: Ankle [employer] [id number] 06/21/2027 1896-504 2S / / [id number] 6.5 Cannulated Screw, 6.5 X 100 Implanted:Qty: 1 on 11/22/2022 by Gutierrez Guthrie DO at [facility] Explanted:Qty: 1 on 04/13/2023 at [facility] Metallic Hardware/Anc hor Left: Ankle WILLIAM [id number] / / NA Screw Compression T2 - [id number] Implanted:Qty: 1 on 11/22/2022 by Gutierrez Guthrie DO at [facility] Explanted:Qty: 1 on 04/13/2023 at [facility] Metallic Hardware/Anc hor Left: Ankle [employer] [id number] 07/22/2027 1818-000 1S / / [id number] Imp Nail Strk T2 Ankle Arthrodesis 21b846ch Lt 1826-1120s - [id number] Implanted:Qty: 1 on 11/22/2022 by Gutierrez Guthrie DO at [facility] Explanted:Qty: 1 on 04/13/2023 at [facility] Metallic Hardware/Anc hor Left: Ankle [employer] [id number] 03/22/2027 1818-112 0S / / [id number] Foot Ring External Fixation 210mm Long Sherine Ii Pvc-F - [id number] Implanted:Qty: 1 on 04/20/2023 by Gutierrez Guthrie, at [facility] Explanted:Qty: 1 on 06/01/2023 by Gutierrez Guthrie, DO at [facility] Metallic Hardware/Anc hor Left: Tibia [employer] 4934-4-2 10 / / [place] Wire 2 Mm [place] 5101-2-450 Implanted:Qty: 6 on 04/20/2023 by Gutierrez Guthrie, at [facility] Explanted:Qty: 6 on 06/01/2023 by Gutierrez Guthrie, DO at [facility] Metallic Hardware/Anc hor Left: Tibia WILLIAM 5101-2-4 50 / / Strut Pilar Med 138-201mm Blue - [id number] Implanted:Qty: 4 on 04/20/2023 by Gutierrez Guthrie DO at [facility] Explanted:Qty: 4 on 06/01/2023 by Gutierrez Guthrie DO at [facility] Metallic Hardware/Anc hor Left: Tibia [employer] 4933-0-1 40 / / Wire [place] Medium Maria Antonia 1.5 To 2.0mm - [id number] Implanted:Qty: 14 on 04/20/2023 by Gutierrez Guthrie DO at [facility] Explanted:Qty: 14 on 06/01/2023 by Gutierrez Guthrie, at [facility] Metallic Hardware/Anc hor Left: Tibia [employer] 4933-1-0 02 / / Wire [place] Long Maria Antonia 1.5 To 2.0mm - [id number] Implanted:Qty: 3 on 04/20/2023 by Gutierrez Guthrie DO at [facility] Explanted:Qty: 3 on 06/01/2023 by Gutierrez Gtuhrie DO at [facility] Metallic Hardware/Anc hor Left: Tibia [employer] 4933-1-0 03 / / Nut Connecting Short M8 X 6mm - [id number] Implanted:Qty: 31 on 04/20/2023 by Gutierrez Guthrie DO at [facility] Explanted:Qty: 31 on 06/01/2023 by Gutierrez Guthrie, DO at [facility] Metallic Hardware/Anc hor Left: Tibia [employer] 4933-1-0 10 / / [place] External Fixation 6mm Carbon Sherine Ii Latex-Free - [id number] Implanted:Qty: 14 on 04/20/2023 by Gutierrez Guthrie, DO at [facility] Explanted:Qty: 14 on 06/01/2023 by Gutierrez Guthrie, DO at [facility] Metallic Hardware/Anc hor Left: Tibia [employer] 4933-1-7 02 / / Washer [employer] 4mm Yellow Sherine Ii Pvc-Free - [id number] Implanted:Qty: 9 on 04/20/2023 by Gutierrez Guthrie, DO at [facility] Explanted:Qty: 9 on 06/01/2023 by Gutierrez Guthrie, DO at [facility] Metallic Hardware/Anc hor Left: Tibia [employer] 4933-1-7 12 / / Washer Red 7mm - [id number] Implanted:Qty: 9 on 04/20/2023 by Gutierrez Guthrie, at [facility] Explanted:Qty: 9 on 06/01/2023 by Gutierrez Guthrie, DO at [facility] Metallic Hardware/Anc hor Left: Tibia [employer] 4933-1-7 13 / / Shoes Rocker For Foot Ring 180mm - [id number] Implanted:Qty: 1 on 04/20/2023 by Gutierrez Guthrie, at [facility] Explanted:Qty: 1 on 06/01/2023 by Gutierrez Guthrie, DO at [facility] Metallic Hardware/Anc hor Left: Tibia [employer] 4934-8-1 80 / / Nut Connecting M6 - [id number] Implanted:Qty: 4 on 04/20/2023 by Gutierrez Guthrie, at [facility] Explanted:Qty: 4 on 06/01/2023 by Gutierrez Guthrie, at [facility] Metallic Hardware/Anc hor Left: Tibia [employer] 4933-1-7 01 / / Carbon Fiber Foot Arch 210mm Implanted:Qty: 1 on 04/20/2023 by Gutierrez Guthrie DO at [facility] Explanted:Qty: 1 on 06/01/2023 by Gutierrez Guthrie DO at [facility] Other Left: Tibia WILLIAM 4934-6-2 10 / / Telescopic Motor Strut - Shor, 161-167mm Implanted:Qty: 1 on 04/20/2023 by Gutierrez Guthrie DO at [facility] Explanted:Qty: 1 on 06/01/2023 by Gutierrez Guthrie DO at [facility] Other Left: Tibia WILLIAM 4934-0-2 10 / / William Hinge Coupling 4933-0-800 Implanted:Qty: 1 on 04/20/2023 by Gutierrez Guthrie DO at [facility] Explanted:Qty: 1 on 06/01/2023 by Gutierrez Guthrie DO at [facility] Other Left: Tibia WILLIAM 4933-0-8 00 / / William 4934-1-060 Implanted:Qty: 4 on 04/20/2023 by Gutierrez Guthrie DO at [facility] Explanted:Qty: 4 on 06/01/2023 by Gutierrez Guthrie DO at [facility] Other Left: Tibia WILLIAM 4934-1-0 60 / / Imp Wire Tamara Strk 3.4n499iu 180-0050s - [id number] Explanted:Qty: 1 on 11/22/2022 by Gutierrez Guthrie DO at [facility] Wire Left: Ankle [employer] [id number] 08/22/2027 1806-005 0S / / [id number] Imp Wire Tamara Strk 3.0n398uw 1806-0050s - [id number] Explanted:Qty: 1 on 11/22/2022 by Gutierrez Guthrie DO at [facility] Wire Left: Ankle [employer] [id number] 07/22/2027 1806-005 0S / / [id number] Wire Fixation 2mm 450mml Only Tip Sherine Ii - [id number] Implanted:Qty: 2 on 04/20/2023 by Gutierrez Guthrie, DO at [facility] Explanted:Qty: 2 on 06/01/2023 by Gutierrez Guthrie, DO at [facility] Wire Left: Tibia [employer] 4933-8-0 40 / / Procedures Procedure Name Priority Date/Time Associated Diagnosis Comments CBC WITH PLATELETS Routine 08/27/2023 9: 45 AM FILTER PRESS TENDER 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, unspecified lower leg, initial encounter (H) BASIC METABOLIC PANEL Routine 07/10/2023 8:16 AM FILTER PRESS TENDER HEPATIC FUNCTION PANEL Routine 07/06/2023 6:41 AM FILTER PRESS TENDER HEMOGLOBIN A1C Add-On 06/10/2023 6:47 AM FILTER PRESS TENDER from Last 3 Months or Most Recently Relevant to Health Maintenance Results * (ABNORMAL) CBC with platelets (08/27/2023 9:45 AM FILTER PRESS TENDER) WBC Count 8.1 4.0 - 11.0 10e3/uL 08/27/2023 9:53 AM [facility] RBC Count 3.59(L) 4.40 - 5.90 10e6/uL 08/27/2023 9:53 AM [facility] Hemoglobin 11.5(L) 13.3 - 17.7 g/dL 08/27/2023 9:53 AM [facility] Hematocrit 34.7(L) 40.0 - 53.0 % 08/27/2023 9:53 AM [facility] MCV 97 78 - 100 fL 08/27/2023 9:53 AM [facility] MCH 32.0 26.5 - 33.0 pg 08/27/2023 9:53 AM [facility] MCHC 33.1 31.5 - 36.5 g/dL 08/27/2023 9:53 AM [facility] RDW 16.8(H) 10.0 - 15.0 % 08/27/2023 9:53 AM [facility] Platelet Count 149(L) 150 - 450 10e3/uL 08/27/2023 9:53 AM [facility] Blood BLOOD SPECIMEN / Unknown Venipuncture / Unknown 08/27/2023 9:45 AM FILTER PRESS TENDER 08/27/2023 9:46 AM [facility] us Radha Gonzalez PA-C LAB - BLOOD ORDERABLES F inal Result [facility] [address] [place] [address], [facility] [phone] * (ABNORMAL) Basic metabolic panel (07/10/2023 8:16 AM [facility]) Sodium 140 135 - 145 mmol/L 07/10/2023 9:19 AM [facility] Comment:Reference intervals for this test were updated on 04/17/2023 to more accurately reflect our healthy population. There may be differences in the flagging of prior results with similar values performed with this method. Interpretation of those prior results can be made in the context of the updated reference intervals. Potassium 3.2(L) 3.4 - 5.3 mmol/L 07/10/2023 9:19 AM [facility] Chloride 98 98 - 107 mmol/L 07/10/2023 9:19 AM [facility] Carbon Dioxide (CO2) 27 22 - 29 mmol/L 07/10/2023 9:19 AM [facility] Anion Gap 15 7 - 15 mmol/L 07/10/2023 9:19 AM [facility] Urea Nitrogen 42.3(H) 8.0 - 23.0 mg/dL 07/10/2023 9:19 AM [facility] Creatinine 2.05(H) 0.67 - 1.17 mg/dL 07/10/2023 9:19 AM [facility] GFR Estimate 36(L) >60 mL/min/1. 73m2 07/10/2023 9:19 AM [facility] Calcium 10.3(H) 8.8 - 10.2 mg/dL 07/10/2023 9:19 AM [facility] Glucose 167(H) 70 - 99 mg/dL 07/10/2023 9:19 AM [facility] Blood BLOOD SPECIMEN / Unknown Venipuncture / Unknown 07/10/2023 8:16 AM FILTER PRESS TENDER 07/10/2023 9:05 AM FILTER PRESS TENDER Stanislaw Venegas MD LAB - BLOOD ORDERABLES Final Result [facility] [address] [place] [address], [facility] [phone] * Hepatic panel (07/06/2023 6:41 AM [facility]) Protein Total 8.1 6.4 - 8.3 g/dL 07/06/2023 7:09 AM [facility] Albumin 3.8 3.5 - 5.2 g/dL 07/06/2023 7:09 AM [facility] Bilirubin Total 0.4 <=1.2 mg/dL 07/06/2023 7:09 AM [facility] Alkaline Phosphatase 144 40 - 150 U/L 07/06/2023 7:09 AM [facility] Comment:Reference intervals for this test were updated on 06/05/2023 to more accurately reflect our healthy population. There may be differences in the flagging of prior results with similar values performed with this method. Interpretation of those prior results can be made in the context of the updated reference intervals. AST 36 0 - 45 U/L 07/06/2023 7:09 AM [facility] Comment:Reference intervals for this test were updated on 01/01/2023 to more accurately reflect our healthy population. There may be differences in the flagging of prior results with similar values performed with this method. Interpretation of those prior results can be made in the context of the updated reference intervals. ALT 33 0 - 70 U/L 07/06/2023 7:09 AM [facility] Comment:Reference intervals for this test were updated on 01/01/2023 to more accurately reflect our healthy population. There may be differences in the flagging of prior results with similar values performed with this method. Interpretation of those prior results can be made in the context of the updated reference intervals. Bilirubin Direct <0.20 0.00 - 0.30 mg/dL 07/06/2023 7:09 AM FILTER PRESS TENDER [facility] Blood BLOOD SPECIMEN / Unknown Venipuncture / Unknown 07/06/2023 6:41 AM FILTER PRESS TENDER 07/06/2023 6:45 AM FILTER PRESS TENDER Stanislaw Venegas MD LAB - BLOOD ORDERABLES Final Result Performing Organization Address [facility]/ZIP Co de Phone Number [facility] [address] [place] [address], [facility] [phone] * (ABNORMAL) Hemoglobin A1c (06/10/2023 6:47 AM FILTER PRESS TENDER) Hemoglobin A1C 7.2(H) <5.7 % 06/10/2023 8:28 AM FILTER PRESS TENDER [facility] Comment: Normal <5.7% Prediabetes 5.7-6.4% Diabetes 6.5% or higher Note: Adopted from ADA consensus guidelines. Blood STRUCTURE OF RIGHT UPPER LIMB / Unknown Venipuncture / Unknown 06/10/2023 6:47 AM FILTER PRESS TENDER 06/10/2023 6:53 AM FILTER PRESS TENDER Danay Prince MD LAB - BLOOD ORDERABLES Final Res ult Performing Organization Address City/[facility]/ZIP Co de Phone Number [facility] [address] [place] [address], [facility] [phone] from Last 3 Months or Most Recently Relevant to Health Maintenance Insurance [place]ID [place] [facility] Address: [address] [address] [place]ICAID [place] [facility] Address: [address] [address] Advance Directives For more information, please contact: [phone] * Full Code (Latest Code Status on [...] patie nt/ legal decision maker Care Teams Social Sciences Research Scientist Relationship Specialty Start Date End Date Ben Cadena PCP - General Family Practice 09/04/19 Angel Mccormick MD Family Practice 09/04/19 Chucho Clement MD [address] [place] [id number] Orthopedics 09/04/19 Darion So MD [address] [place] [address] Nephrology 12/09/20 Gutierrez Guthrie DO [facility], [facility] [address] [place] [address] Orthopaedic Surgery Foot and Ankle Surgery 02/05/23 Erick Lagunas MD [address] [facility] [address] [place] [address] Assigned Infectious Disease Provider 02/10/23 Chucho Santizo MD [address] [place] [address] Assigned Neuroscience Provider 10/05/23 [facility] [address] [place] [address] Assigned PCP 11/13/23
--- OUTSIDE RECORDS SUMMARY | 2024-06-27 07:09 | XMS_ITS | Encounter Summary ---
Author Organization [place] Address [address] [place] [address] Care Team Providers Care Assistant To The Dean Name Role Phone Ben Cadena Primary Care Provider [phone] Angel Mccormick MD Unavailable [phone] Chucho Clement MD Unavailable [phone] Darion So MD Unavailable [phone] Gutierrez Guthrie DO Unavailable + [phone] Erick Lagunas MD Unavailable +[phone] Chucho Santizo MD Unavailable [phone] [facility] Unavailabl e Encounter Details Date Type Department Care Team (Late st Contact Info) Description 02/27/2024 MyC Medical Advice [facility] [address], [address] [place] [address] Chucho Santizo MD [address] [place] [address] Social History Tobacco Use Types Packs/Day [...] How often do you attend chur or mandaen services? Never 05/29/2023 Do you belong to any clubs o r organizations such as amish groups, unions, fraternal or athletic groups, or [...] Answer Date Recorded PHQ-2 Score 3 05/29/2023 [facility] - Occupational Stress Questionnaire Answer Date [...] an abandoned building, in an overnight senior care, or couch-surfing.) Patient refused 05/29/2023 Are you [...] PM CDT Legal Sex Male 2:58 AM DOPEMAN Gender Identity Male 11/29/2020 12:43 PM CDT Sexual Orientation Choose not to disclose 2021 4:07 PM DOPEMAN documented as of this encounter Plan of Treatment Upcoming Encounters Date Type Department Care Team (Late st Contact Info) Description 09/25/2024 8:30 AM DOPEMAN Office Visit [facility] [address], [facility] 200 [place] [address] Chucho Santizo MD [address] [place] [address] documented as of this encounter Visit Diagnoses Not on filedocumented in this encounter Additional Health Concerns Assessment Noted Time PHQ-9 Depression Total Score: 12 023 1:40 PM DOPEMAN documented as of this encounter Care Teams Assistant To The Dean Relationship Specialty Start Date End Date Ben Cadena PCP - General Family Practice 09/04/19 Angel Mccormick MD Family Practice 09/04/19 Chucho Clement MD [address] [place] [address] Orthopedics 09/04/19 Darion So MD [address] [place] [phone] Nephrology 12/09/20 Gutierrez Guthrie DO [address], [facility] 200 [place] [address] Orthopaedic Surgery Foot and Ankle Surgery 02/05/23 Erick Lagunas MD [address] [place] [facility] 300 [place] [address] Assigned Infectious Disease Provider 02/10/23 Chucho Santizo MD 909 [place] [address] Assigned Neuroscience Provider 10/05/23 [facility] [address] [place] [address] Assigned PCP 11/13/23 documented as of this encounter
--- OUTSIDE RECORDS SUMMARY | 2024-06-27 07:09 | XMS_ITS | Encounter Summary ---
Author Organization [place] Address [address] [place] [address] Care Team Providers Care Legal Librarian Name Role Phone Ben Cadena Primary Care Provider [phone] Angel Mccormick MD Unavailable [phone] Chucho Clement MD Unavailable [phone] Darion So MD Unavailable [phone] Carolina Flanagan PA-C Unavailable + [phone] Robert Boggs PhD LP Unavailable [phone] Milla Ramsay PA-C Unavailable [phone] Regis Lyons MD Unavailable [phone] Gutierrez Guthrie DO Unavailable + [phone] Erick Lagunas MD Unavailable AnaliliaAzucena APRN COLLECTION ADVISOR Unavailable Un available AnaliliaAzucena APRN COLLECTION ADVISOR Unavailable Un available AnaliliaAzucena APRN COLLECTION ADVISOR Unavailable Un available Chucho Santizo MD Unavailable [phone] AnaliliaAzucena APRN COLLECTION ADVISOR Unavailable Un available Clinic - [facility] Unavailabl e Encounter Details Date Type Department Care Team (Late st Contact Info) Description 08/08/2021 [facility] [place] [address] [facility] 4th [place] [address] Regis Lyons MD [address] [facility] 195 [place] [address] Social History Tobacco Use Types Packs/Day Years [...] How often do you attend chur or jain services? Never 05/29/2023 Do you belong to any clubs o r organizations such as anabaptism groups, unions, fraternal or athletic groups, or [...] Answer Date Recorded PHQ-2 Score 3 03/27/2024 [facility] - Occupational [...] in an abandoned building, in an overnight [place] [facility], or couch-surfing.) Patient refused 05/29/2023 Are you [...] PM CDT Legal Sex Male 2:58 AM SENIOR GAME ADVISOR Gender Identity Male 11/29/2020 12:43 PM CDT Sexual Orientation Choose not to disclose 2021 4:07 PM SENIOR GAME ADVISOR COVID-19 Exposure Response Date Recorded In the last 10 days, have yo u been in contact with someone who was confirmed or suspected to have Coronavirus/COVID-19? No / Unsure 04/23/2023 1:43 PM CDT documented as of this encounter Miscellaneous Notes * Telephone Encounter - Niko Davis - 08/08/2021 3:41 PM CST Pt called and stated that he got a message about missing his appointment last the however, he didn't miss that as he stated he talked with Dr. Lyons. Please call pt with any questions [phone] OR GAME ADVISOR documented in this encounter Plan of Treatment Upcoming Encounters Date Type Department Care Team (Late st Contact Info) Description 09/25/2024 8:30 AM SENIOR GAME ADVISOR Office Visit [facility] Physical Medicine and Rehabilitation [address], [facility] 200 [place] [phone] Chucho Santizo MD [address] [place], [place] [address] documented as of this encounter Visit Diagnoses Not on filedocumented in this encounter Additional Health Concerns Assessment Noted Time PHQ-9 Depression Total Score: 2 06/30/20 21 7:02 AM SENIOR GAME ADVISOR documented as of this encounter Care Teams Legal Librarian Relationship Specialty Start Date End Date Ben Cadena PCP - General Family Practice 09/04/19 Angel Mccormick MD Family Practice 09/04/19 Chucho Clement MD [facility] [address] [address] Orthopedics 09/04/19 Darion So MD [address] [place] [address] Nephrology 12/09/20 Carolina Flanagan, [facility] [address] [facility] 195 [place] [address] Assigned Surgical Provider 01/16/21 08/20/21 Robert Boggs, PhD LP 420 [facility] 741 [place] [address] Assigned Behavioral Health Provider 07/10/21 02/23/23 Milla Ramsay PA-C [facility], SURGERY [address] [facility] [address] [place], [place] [address] Assigned Gastroenterology Provider 08/21/21 09/24/21 Regis Lyons MD 420 [facility] 195 [place], [place] [address] Assigned Surgical Provider 08/21/21 02/02/23 Gutierrez Guthrie DO [address], [facility] 200 [place], [place] [id number] Orthopaedic Surgery Foot and Ankle Surgery 02/05/23 Erick Lagunas MD [facility] Mom[address] Gregg [facility] 300 [place], [place] [address] Assigned Infectious Disease Provider 02/10/23 Azucena Billingsley APRN COLLECTION ADVISOR Assigned Pain Medication Provider 06/16/23 08/15/23 Azucena Billingsley APRN COLLECTION ADVISOR Assigned PCP 05/09/23 09/13/23 Azucena Billingsley APRN COLLECTION ADVISOR Assigned PCP 10/13/23 11/12/23 Chucho Santizo MD [address] [place] [address] Assigned Neuroscience Provider 10/05/23 Azucena Billingsley APRN COLLECTION ADVISOR Assigned PCP 09/14/23 10/12/23 [facility] [address] [place] [address] Assigned PCP 11/13/23 documented as of this encounter
--- OUTSIDE RECORDS SUMMARY | 2024-06-27 07:09 | XMS_ITS | Encounter Summary ---
Author Organization [place] Address [address] [place] [address] Care Team Providers Care Employee Training Specialist Name Role Phone Ben Cadena Primary Care Provider [phone] Angel Mccormick MD Unavailable [phone] Chucho Clement MD Unavailable [phone] Darion So MD Unavailable [phone] Carolina Flanagan PA-C Unavailable + [phone] Robert Boggs PhD LP Unavailable [phone] Milla Ramsay PA-C Unavailable [phone] Regis Lyons MD Unavailable [phone] Gutierrez Guthrie DO Unavailable + [phone] Erick Lagunas MD Unavailable AnaliliaAzucena APRN COMPOSITE ASSEMBLER Unavailable Un available AnaliliaAzucena APRN COMPOSITE ASSEMBLER Unavailable Un available AnaliliaAzucena APRN COMPOSITE ASSEMBLER Unavailable Un available Chucho Santizo MD Unavailable [phone] AnaliliaAzucena APRN COMPOSITE ASSEMBLER Unavailable Un available Clinic - [facility] Unavailabl e Encounter Details Date Type Department Care Team (Late st Contact Info) Description 08/10/2021 [facility] Preoperative Assessment Center [place] [id number] [facility] SE 5th [place] [address] Beth Hernández RN Social History Tobacco Use Types Packs/Day [...] PM CDT Legal Sex Male 2:58 AM WELDER FABRICATOR Gender Identity Male 11/29/2020 12:43 PM CDT Sexual Orientation Choose not to disclose 2021 4:07 PM WELDER FABRICATOR COVID-19 Exposure Response Date Recorded In the last month, have you been in contact with someone who was confirmed or suspected to have Coronavirus / COVID-19? No / Unsure 08/04/2021 8:33 AM WELDER FABRICATOR documented as of this encounter Plan of Treatment Upcoming Encounters Date Type Department Care Team (Late st Contact Info) Description 09/25/2024 8:30 AM WELDER FABRICATOR Office Visit [facility] [address], [address] [place] [address] Chucho Santizo MD [address] [place] [address] documented as of this encounter Visit Diagnoses Not on filedocumented in this encounter Additional Health Concerns Assessment Noted Time PHQ-9 Depression Total Score: 2 06/30/20 21 7:02 AM WELDER FABRICATOR documented as of this encounter Care Teams Employee Training Specialist Relationship Specialty Start Date End Date Ben Cadena PCP - General Family Practice 09/04/19 Angel Mccormick MD Family Practice 09/04/19 Chucho Clement MD [address] [place] [address] Orthopedics 09/04/19 Darion So MD [address] [place] [address] Nephrology 12/09/20 Carolina Flanagan PA-C [address] [facility] 195 [place] [address] Assigned Surgical Provider 01/16/21 08/20/21 Robert Boggs, PhD LP [address] [facility] 741 [place] [address] Assigned Behavioral Health Provider 07/10/21 02/23/23 Milla Ramsay PA-C [facility], SURGERY [address] [facility] [address] [place] [address] Assigned Gastroenterology Provider 08/21/21 09/24/21 Regis Lyons MD [address] [facility] 195 [place], [place] [address] Assigned Surgical Provider 08/21/21 02/02/23 Gutierrez Guthrie DO [address], [address] [address] Orthopaedic Surgery Foot and Ankle Surgery 02/05/23 Erick Lagunas MD [address] [facility] 300 [place] [address] Assigned Infectious Disease Provider 02/10/23 Azucena Billingsley APRN COMPOSITE ASSEMBLER Assigned Pain Medication Provider 06/16/23 08/15/23 Azucena Billingsley APRN COMPOSITE ASSEMBLER Assigned PCP 05/09/23 09/13/23 Azucena Billingsley APRN COMPOSITE ASSEMBLER Assigned PCP 10/13/23 11/12/23 Chucho Santizo MD [address] [place] [address] Assigned Neuroscience Provider 10/05/23 Azucena Billingsley APRN COMPOSITE ASSEMBLER Assigned PCP 09/14/23 10/12/23 [facility] [address] [place] [address] Assigned PCP 11/13/23 documented as of this encounter
--- OUTSIDE RECORDS SUMMARY | 2024-06-27 07:09 | XMS_ITS | Encounter Summary ---
Author Organization [place] Address [address] [place] [address] Care Team Providers Care Boomboat Operator Name Role Phone Ben Cadena Primary Care Provider [phone] Angel Mccormick MD Unavailable [phone] Chucho Clement MD Unavailable [phone] Darion So MD Unavailable [phone] Gutierrez Guthrie DO Unavailable [phone] Erick Lagunas MD Unavailable [phone] Chucho Santizo MD Unavailable [phone] [facility] Unavailabl e Reason for Referral * Rehab Therapy Physical Therapy (Routine: Next available opening) - Pending Review Specialty Diagnoses / Procedures Referred By Contac t Referred To Contact Diagnoses Leg edema, right Chucho Santizo MD [address] [place] [address] Phone: tel: fax: Referral ID Status Reason Start Date Expiration Date V isits Requested Visits Authorized [id number] Pending Review 03/27/2024 03/27/2025 1 1 Question Answer Additional Information: Persistent lymphedema after lymphedema physical therapy. Please have a therapy goal of in-person training and assessment of manual lymphatic drainage by patient and caregiver and set a frequency of home manual lymphedema management. Comments Physical Therapy Location: [place] * Consultation (Routine: Next available opening) - Pending Review Specialty Diagnoses / Procedures Referred By Contisis t Referred To Contact Wound Care Diagnoses Open wound of right lower extremity, initial encounter Chucho Santizo MD [address] [place] [address] Phone: tel: fax: Referral ID Status Reason Start Date Expiration Date V isits Requested Visits Authorized [id number] Pending Review 03/27/2024 03/27/2025 1 1 Question Answer Preferred Location: Other (external) - Use Comments Non-internal location selection reason: Location Scheduling Instructions: Please call to schedule your appointment Class External referral [5] Reason for Referral: Other My Clinical Question Is: Abrasion on anterior lower leg with exposed mucosa, assess wound healing Wound Location: Leg Select any known circulatory [...] appointment Reason for Visit * Reason Comments Follow Up Pt has concerns abou t lymphedema of right leg, and having increased soreness in their residual limb. Encounter Details Date Type Department Care Team (Latest Contact Info) Description 03/27/2024 8:30 AM CDT Office Visit [facility] Medicine [facility] Rehabilitation Clinic [address], [address] [place] [phone] Chucho Santizo MD [address] [place] [address] Below-knee amputation of left lower extremity, subsequent encounter (H) (Primary Dx); Open wound of right lower extremity, initial encounter; Leg edema, right; Pain of left lower leg Social History Tobacco Use Types Packs/Day Years [...] often do you attend chur ch or spiritism services? Never 05/29/2023 Do you belong to any clubs o r organizations such as protestant groups, unions, fraternal or athletic groups, or [...] Answer Date Recorded PHQ-2 Score 3 03/27/2024 [facility] Occupational Stress Questionnaire Answer Date [...] PM CDT Legal Sex Male 2:58 AM DENTURE CONTOUR WIRE SPECIALIST Gender Identity Male 11/29/2020 12:43 PM CDT Sexual Orientation Choose not to disclose 2021 4:07 PM DENTURE CONTOUR WIRE SPECIALIST documented as of this encounter Last Filed Vital Signs Vital Sign Reading Time Taken Comments Blood Pressure 132/62 03/27/2024 8:21 AM CDT Pulse - - Temperature - - Respiratory Rate - - Oxygen Saturation - - Inhaled Oxygen Concentration - - Weight - - Height - - Body Mass Index - - documented in this encounter Patient Instructions * Patient Instructions* Chucho Santizo MD - 03/27/2024 8:30 AM CDT You have a new abrasion on your right leg due to your continuing peripheral edema. I would like youto schedule an appointment with wound clinic to make sure your treatment strategy is correct. I have also referred you to your lymphedema therapist - ask them directly if you can have in-person training for manual lymphatic drainage to ensure that it can be done correctly and frequently at home. I have prescribed voltaren for pain with walking on your well fitting prosthesis. If your skin color on your leg changes significantly or if you are newly unable to leal the affected skin - press it down and see a temporary assistant professor of education color change - then stop using the voltaren - you can still use the lidocaine. I'd also advise discussing this with your potato seed cutter, PCP, industrial automation specialist, or me - whoever has the next visit - for a skin evaluation. documented in this encounter Progress Notes * Chucho Santizo MD - 03/27/2024 8:30 AM CDT PM&R Followup Note Patient Name: Roderick Walker : 1960 Medical Record: [id number] Amputee Information: Level of Amputation: Left transtibial SUPERVISOR TRANSCRIBING OPERATORS: Yana Chairez Date of Surgery: 06/01/2023 Etiology: Diabetic Osteomyelitis Subjective: Last visit summary: I noted a stage 2 pressure injury on the left leg and ordered wound care. I also ordered a compression garment fore the right leg. I told him to reduce use of the prosthesis. In the interim, he required forms for a new wheelchair. Interval History: He still has lymphedema in his right leg. He has alpa wearing compression garments since I prescribed them but they haven't made much of a difference yet. He did see a physical therapy lymphedema expert who did wrapping twice a week, and now at home he does wrapping of the leg every day. They did goover manual lymphatic drainage, but the patient says that the training session was brief and mostlyhandout based. He would like more involved sessions where he and his caregiver spouse are trained in active sessions to develop skills in manual lymphatic drainage. He recently sustained an abrasion last weekend. He's been trying to get a scab and has been keepingthe wound open to air to do so. He is using a cleaning spray. His blister on the left leg healed well. The residual limb is always tender internally, which makesit painful to don and walk. He's got lidocaine cream which he applied a little before putting on his liner and prosthesis without wiping it off before donning. He doesn't do this consistently. The lidocaine helps a bit. He's not wearing his prosthesis much a day. He wears it from 1-3 hours per day. He uses the wheelchair to get around inside his house. Regarding the fit, he says that since his left leg has been 3/4 inch shorter than his right, and he noted that a chiropractor who took X rays said that his hips were adjusted for it. He is going to ask his SUPERVISOR TRANSCRIBING OPERATORS to make the prosthesis shorter to make it easier to walk with his particular body mechanics. 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 Medications: Current Outpatient Medications Medication Sig Dispense [...] 127.1 kg (280 lb 3.3 oz). Gait: Very heavy steps but not antalgic, wide based stance especially when transferring to standing, both legs externally rotated Strength: Hip adduction Hip Flexion Knee Extension A. Plantarflex A. Dorsiflex R 5 5 5 5 5 L 5 5 5 NA NA Sensation: Sensation to light touch intact in the BLE. Residual left leg: He has tenderness in several points along the well healed incisional line, especially on the lateral side. Right lower extremity: Lymphedema with thickened reddening more in medial lower leg, abrasion with exposed mucosae over tibia. Blanchable around abrasion. Prosthesis: Pin suspension liner in good condition, well fitting. Labs: LipidsNo results for input(s): CHOL, LDL, HDL, TRIG in the last [address] hours. HgbA1c Recent Labs Lab Test 06/10/23 0647 01/05/23 2350 A1C 7.2* 8.8* Assessment/Plan: Roderick Walker is a 63 year old male with a relevant PMH of DM2 and a left transtibial amputation on 06/01/23 complicated by infection and lymphedema resulting in repeated skin injuries #Left TTA Prosthesis is well fitting. Pain is musculoskeletal and at surgical incisional area, due more to inflammation at structurally weaker areas than to poor socket fitting. - diclofenac to be administered before and / or after donning prosthesis for better gait tolerance - skin checks regularly, discontinue diclofenac if developing stage 1 injury. Informed patient about how to detect stage 1 pressure injuries. #Lymphedema #Abrasion of right leg with slow healing wound - wound care referral to assess patient's care regimen, as this abrasion mechanism increases the risk of infection - PT referral for in-session teaching of decongestive practices including manual lymphedema massagethis time. Assess on follow up whether this new skill translated into an independent home massage program successfully. #Follow up - 6 months Chucho Santizo MD Physical Medicine & Rehabilitation I spent a total of 54 minutes on the date of service doing chart review, history and exam, documentation, and further activities as noted above. documented in this encounter Plan of Treatment Upcoming Encounters Date Type Department Care Team (Late st Contact Info) Description 09/25/2024 8:30 AM DENTURE CONTOUR WIRE SPECIALIST Office Visit [facility] Physical Medicine and Rehabilitation Clinic [address], [address] [place] [phone] Chucho Santizo MD [address] [place] [address] Scheduled Referrals Name Type Priority Associated Diagnoses Orde r Schedule Wound Care Referral Referral Routine: Nex t available opening Open wound of right lower extremity, initial encounter Expected: 03/27/2024 (Approximate), Expires: 03/27/2025 PT Referral (External Facility) Referral Routine: Next available opening Leg edema, right Expected: 03/27/2024 (Approximate), Expires: 03/27/2025 documented as of this encounter Visit Diagnoses Diagnosis Below-knee amputation of left lower extremity, subsequent encounter (H)- Primary Open wound of right lower extremity, initial encounter Leg edema, right Edema Pain of left lower leg Pain in limb documented in this encounter Additional Health Concerns Assessment Noted Time PHQ-9 Depression Total Score: 16 024 8:23 AM CDT documented as of this encounter Care Teams Boomboat Operator Relationship Specialty Start Date End Date Ben Cadena PCP - General Family Practice 09/04/19 Angel Mccormick MD Family Practice 09/04/19 Chucho Clement MD [address] [place], [place] [address] [place] [address] Orthopedics 09/04/19 Darion So MD [address] [place] [phone] Nephrology 12/09/20 Gutierrez Guthrie DO [address], [address] [address] Orthopaedic Surgery Foot and Ankle Surgery 02/05/23 Erick Lagunas MD [address] [facility] 300 [place] [address] Assigned Infectious Disease Provider 02/10/23 Chucho Santizo MD [address] [place] [address] Assigned Neuroscience Provider 10/05/23 [facility] [address] [place] [address] Assigned PCP 11/13/23 documented as of this encounter
--- OUTSIDE RECORDS SUMMARY | 2024-06-27 07:09 | XMS_ITS | Encounter Summary ---
Author Organization [place] Address [address] [place] [address] Care Team Providers Care Curatorial Specialist Name Role Phone Ben Cadena Primary Care Provider [phone] Angel Mccormick MD Unavailable [phone] Chucho Clement MD Unavailable [phone] Darion So MD Unavailable [phone] Robert Boggs PhD LP Unavailable +[phone] Regis Lyons MD Unavailable +[phone] Gutierrez Guthrie DO Unavailable +- [phone] Erick Lagunas MD Unavailable +[phone] Analilia, Azucena Veras APRN MANUFACTURING AUTOMATION ENGINEER Unavailable Un available Analilia, Azucena Veras APRN MANUFACTURING AUTOMATION ENGINEER Unavailable Un available Analilia, Azucena Veras APRN MANUFACTURING AUTOMATION ENGINEER Unavailable Un available Chucho Santizo MD Unavailable [phone] Analilia, Azucena Veras APRN MANUFACTURING AUTOMATION ENGINEER Unavailable Un available Clinic - [facility] Unavailabl e Encounter Details Date Type Department Care Team (Late st Contact Info) Description 10/11/2021 [facility] [address] [place] [address] Chris Norris Social History Tobacco [...] PM CDT Legal Sex Male 2:58 AM WAX BALL KNOCK OUT WORKER Gender Identity Male 11/29/2020 12:43 PM CDT Sexual Orientation Choose not to disclose 2021 4:07 PM WAX BALL KNOCK OUT WORKER documented as of this encounter Plan of Treatment Upcoming Encounters Date Type Department Care Team (Late st Contact Info) Description 09/25/2024 8:30 AM WAX BALL KNOCK OUT WORKER Office Visit [facility] [address], [address] [place] [phone] Chucho Santizo MD [address] [place] [address] 832975 documented as of this encounter Visit Diagnoses Not on filedocumented in this encounter Additional Health Concerns Assessment Noted Time PHQ-9 Depression Total Score: 2 06/30/20 21 7:02 AM WAX BALL KNOCK OUT WORKER documented as of this encounter Care Teams Curatorial Specialist Relationship Specialty Start Date End Date Ben Cadena PCP - General Family Practice 09/04/19 Angel Mccormick MD Family Practice 09/04/19 Chucho Clement MD [address] [place] [address] Orthopedics 09/04/19 Darion So MD [address] [place] [address] Nephrology 12/09/20 Robert Boggs, PhD LP 420 [facility] 741 [place] [address] Assigned Behavioral Health Provider 07/10/21 02/23/23 Regis Lyons MD 420 [facility] 195 [place], [place] [address] Assigned Surgical Provider 08/21/21 02/02/23 Gutierrez Guthrie DO [address], [facility] 200 [place], [place] [id number] Orthopaedic Surgery Foot and Ankle Surgery 02/05/23 Erick Lagunas MD [address] [facility] 300 [place] [address] Assigned Infectious Disease Provider 02/10/23 Azucena Billingsley APRN MANUFACTURING AUTOMATION ENGINEER Assigned Pain Medication Provider 06/16/23 08/15/23 Azucena Billingsley APRN MANUFACTURING AUTOMATION ENGINEER Assigned PCP 05/09/23 09/13/23 Azucena Billingsley APRN MANUFACTURING AUTOMATION ENGINEER Assigned PCP 10/13/23 11/12/23 Chucho Santizo MD 909 [place] [address] Assigned Neuroscience Provider 10/05/23 Azucena Billingsley APRN MANUFACTURING AUTOMATION ENGINEER Assigned PCP 09/14/23 10/12/23 [facility] [address] [place] [address] Assigned PCP 11/13/23 documented as of this encounter
--- OUTSIDE RECORDS SUMMARY | 2024-06-27 07:09 | XMS_ITS | Encounter Summary ---
Author Organization [place] Address [address] [place] [address] Care Team Providers Care Ring Spinner Name Role Phone Ben Cadena Primary Care Provider [phone] Angel Mccormick MD Unavailable [phone] Chucho Clement MD Unavailable [phone] Darion So MD Unavailable [phone] Robert Boggs PhD LP Unavailable +[phone] Regis Lyons MD Unavailable [phone] Gutierrez Guthrie DO Unavailable +[phone] Erick Lagunas MD Unavailable [phone] Analilia, Azucena Veras APRN RISK ADVISOR Unavailable Un available Analilia, Azucena Veras APRN RISK ADVISOR Unavailable Un available Analilia, Azucena Veras APRN RISK ADVISOR Unavailable Un available Chucho Santizo MD Unavailable [phone] Analilia, Azucena Veras APRN RISK ADVISOR Unavailable Un available Clinic - [facility] Unavailabl e Encounter Details Date Type Department Care Team (Late st Contact Info) Description 10/06/2021 [facility] [address] [place] [address] Chris Norris Social History Tobacco [...] PM CDT Legal Sex Male 2:58 AM SUPERVISOR SPECIALTY PLANT Gender Identity Male 11/29/2020 12:43 PM CDT Sexual Orientation Choose not to disclose 2021 4:07 PM SUPERVISOR SPECIALTY PLANT documented as of this encounter Plan of Treatment Upcoming Encounters Date Type Department Care Team (Late st Contact Info) Description 09/25/2024 8:30 AM SUPERVISOR SPECIALTY PLANT Office Visit [facility] [address], [address] [place] [phone] Chucho Santizo MD [address] [place] [address] 529565 documented as of this encounter Visit Diagnoses Not on filedocumented in this encounter Additional Health Concerns Assessment Noted Time PHQ-9 Depression Total Score: 2 06/30/20 21 7:02 AM SUPERVISOR SPECIALTY PLANT documented as of this encounter Care Teams Ring Spinner Relationship Specialty Start Date End Date Ben Cadena PCP - General Family Practice 09/04/19 Angel Mccormick MD Family Practice 09/04/19 Chucho Clement MD [address] [place] [address] Orthopedics 09/04/19 Darion So MD [address] [place] [address] Nephrology 12/09/20 Robert Boggs, PhD LP 420 [facility] 741 [place] [address] Assigned Behavioral Health Provider 07/10/21 02/23/23 Regis Lyons MD 420 [facility] 195 [place], [place] 37[address] Assigned Surgical Provider 08/21/21 02/02/23 Gutierrez Guthrie DO [address], [facility] 200 [place], [place] [phone] Orthopaedic Surgery Foot and Ankle Surgery 02/05/23 Erick Lagunas MD [address] [facility] 300 [place] [address] Assigned Infectious Disease Provider 02/10/23 Azucena Billingsley APRN RISK ADVISOR Assigned Pain Medication Provider 06/16/23 08/15/23 Azucena Billingsley APRN RISK ADVISOR Assigned PCP 05/09/23 09/13/23 Azucena Billingsley APRN RISK ADVISOR Assigned PCP 10/13/23 11/12/23 Chucho Santizo MD 909 [place] [address] Assigned Neuroscience Provider 10/05/23 Azucena Billingsley APRN RISK ADVISOR Assigned PCP 09/14/23 10/12/23 [facility] [address] [place] [address] Assigned PCP 11/13/23 documented as of this encounter
--- OUTSIDE RECORDS SUMMARY | 2024-06-27 07:09 | XMS_ITS | Encounter Summary ---
Author Organization [place] Address [address] [place] [address] Care Team Providers Care Waste Picker Name Role Phone Ben Cadena Primary Care Provider [phone] Angel Mccormick MD Unavailable [phone] Chucho Clement MD Unavailable [phone] Darion So MD Unavailable [phone] Gutierrez Guthrie DO Unavailable +- [phone] Erick Lagunas MD Unavailable +[phone] Chucho Santizo MD Unavailable +[phone] [facility] Unavailabl e Encounter Details Date Type Department Care Team (Latest Contact Info) Description 03/27/2024 Travel Social History Tobacco Use Types Packs/Day [...] Answer Date Recorded PHQ-2 Score 3 03/27/2024 [facility] Occupat ional Health - Occupational Stress [...] in an abandoned building, in an overnight jail, or couch-surfing.) Patient refused 05/29/2023 Are you [...] PM CDT Legal Sex Male 2:58 AM BUSHER HELPER Gender Identity Male 11/29/2020 12:43 PM CDT Sexual Orientation Choose not to disclose 2021 4:07 PM BUSHER HELPER documented as of this encounter Plan of Treatment Upcoming Encounters Date Type Department Care Team (Late st Contact Info) Description 09/25/2024 8:30 AM BUSHER HELPER Office Visit [facility] Medicine and Rehabilitation Clinic [address], [address] [place] [address] Chucho Santizo MD [address] [place] [address] documented as of this encounter Visit Diagnoses Not on filedocumented in this encounter Additional Health Concerns Assessment Noted Time PHQ-9 Depression Total Score: 16 024 8:23 AM CDT documented as of this encounter Care Teams Waste Picker Relationship Specialty Start Date End Date Ben Cadena PCP - General Family Practice 09/04/19 Angel Mccormick MD Family Practice 09/04/19 Chucho Clement MD [address] [place] [address] [place] [address] Orthopedics 09/04/19 Darion So MD [address] [place] [address] Nephrology 12/09/20 Gutierrez Guthrie DO [facility] Vicente Mckay, [facility] 200 [place] [address] Orthopaedic Surgery Foot and Ankle Surgery 02/05/23 Erick Lagunas MD [address] [facility] 300 [place] [address] Assigned Infectious Disease Provider 02/10/23 Chucho Santizo MD 909 [place] [address] Assigned Neuroscience Provider 10/05/23 [facility] [address] [place] [address] Assigned PCP 11/13/23 documented as of this encounter
--- OUTSIDE RECORDS SUMMARY | 2024-06-27 07:10 | XMS_ITS | Encounter Summary ---
Author Organization [place] Address [address] [place] [address] Care Team Providers Care Rasper Machine Operator Name Role Phone Ben Cadena Primary Care Provider [phone] Angel Mccormick MD Unavailable [phone] Chucho Clement MD Unavailable [phone] Darion So MD Unavailable [phone] Carolina Flanagan PA-C Unavailable + [phone] Robert Boggs PhD LP Unavailable +[phone] Milla Ramsay PA-C Unavailable +[phone] Regis Lyons MD Unavailable [phone] Gutierrez Guthrie DO Unavailable + [phone] Erick Lagunas MD Unavailable AnaliliaAzucena APRN SENIOR ENVIRONMENTAL ENGINEER Unavailable Un available AnaliliaAzucena APRN SENIOR ENVIRONMENTAL ENGINEER Unavailable Un available AnaliliaAzucena APRN SENIOR ENVIRONMENTAL ENGINEER Unavailable Un available Chucho Santizo MD Unavailable [phone] AnaliliaAzucena APRN SENIOR ENVIRONMENTAL ENGINEER Unavailable Un available Clinic - [facility] Unavailabl e Encounter Details Date Type Department Care Team (Late st Contact Info) Description 07/25/2021 [facility] [place] [id number] [facility] 4th [place] [address] Lashanda Shanks NP 909 [place] [address] Social History Tobacco Use Types Packs/Day Years [...] Never 05/29/2023 How often do you attend [facility] or faith services? Never 05/29/2023 Do you belong to [...] Answer Date Recorded PHQ-2 Score 3 03/27/2024 [facility] of Occupat ional Health - Occupational [...] PM CDT Legal Sex Male 2:58 AM FLOOR ATTENDANT Gender Identity Male 11/29/2020 12:43 PM CDT Sexual Orientation Choose not to disclose 2021 4:07 PM FLOOR ATTENDANT COVID-19 Exposure Response Date Recorded In the last 10 days, have yo u been in contact with someone who was confirmed or suspected to have Coronavirus/COVID-19? No / Unsure 04/23/2023 1:43 PM CDT documented as of this encounter Miscellaneous Notes * Telephone Encounter - Niko Davis 07/25/2021 1:53 PM CST Images from the original note were not included. Hey all, I called this pt to schedule some appointments per Theodora and I got everything but what is below. These appointments where after his surgery date. Can get get fit in? [place].Please call pt. [phone] - Confirmed R ATTENDANT documented in this encounter Plan of Treatment Upcoming Encounters Date Type Department Care Team (Late st Contact Info) Description 09/25/2024 8:30 AM FLOOR ATTENDANT Office Visit [facility] Physical Medicine and Rehabilitation Clinic [address], [address] [place] [phone] Chucho Santizo MD 909 [place], [place] 90[address] documented as of this encounter Visit Diagnoses Not on filedocumented in this encounter Additional Health Concerns Assessment Noted Time PHQ-9 Depression Total Score: 2 06/30/20 21 7:02 AM FLOOR ATTENDANT documented as of this encounter Care Teams Rasper Machine Operator Relationship Specialty Start Date End Date Ben Cadena PCP - General Family Practice 09/04/19 Angel Mccormick MD Family Practice 09/04/19 Chucho Clement MD [address] [place] [address] Orthopedics 09/04/19 Darion So MD [address] [place] [address] Nephrology 12/09/20 Carolina Flanagan PA-C 420 [facility] 195 [place] [address] Assigned Surgical Provider 01/16/21 08/20/21 Robert Boggs, PhD LP 420 [facility] 741 [place] [address] Assigned Behavioral Health Provider 07/10/21 02/23/23 Milla Ramsay PA-C [facility], SURGERY 909 [facility] 4TH [place] [address] Assigned Gastroenterology Provider 08/21/21 09/24/21 Regis yLons MD 420 [facility] 195 [place] [address] Assigned Surgical Provider 08/21/21 02/02/23 Gutierrez Guthrie DO [address], [facility] 200 [place], [place] [address] Orthopaedic Surgery Foot and Ankle Surgery 02/05/23 Erick Lagunas MD [facility] Momo Gregg [facility] 300 [place] [address] Assigned Infectious Disease Provider 02/10/23 Azucena Billingsley APRN SENIOR ENVIRONMENTAL ENGINEER Assigned Pain Medication Provider 06/16/23 08/15/23 Azucena Billingsley APRN SENIOR ENVIRONMENTAL ENGINEER Assigned PCP 05/09/23 09/13/23 Azucena Billingsley APRN SENIOR ENVIRONMENTAL ENGINEER Assigned PCP 10/13/23 11/12/23 Chucho Santizo MD 909 [place] [address] Assigned Neuroscience Provider 10/05/23 Azucena Billingsley APRN SENIOR ENVIRONMENTAL ENGINEER Assigned PCP 09/14/23 10/12/23 [facility] [id number] [place] [address] Assigned PCP 11/13/23 documented as of this encounter
--- OUTSIDE RECORDS SUMMARY | 2024-06-27 07:10 | XMS_ITS | Encounter Summary ---
Author Organization [place] Address [address] [place] [address] Care Team Providers Care Vp Business Development Name Role Phone Ben Cadena Primary Care Provider [phone] Angel Mccormick MD Unavailable [phone] Chucho Clement MD Unavailable [phone] Darion So MD Unavailable [phone] Carolina Flanagan PA-C Unavailable + [phone] Robert Boggs PhD LP Unavailable [phone] Milla Ramsay PA-C Unavailable +[phone] Regis Lyons MD Unavailable +[phone] Gutierrez Guthrie DO Unavailable + [phone] Erick Lagunas MD Unavailable AnaliliaAzucena chilel APRN HEEL SCOURER Unavailable Un available AnaliliaAzucena APRN HEEL SCOURER Unavailable Un available AnaliliaAzucena APRN HEEL SCOURER Unavailable Un available Chucho Santizo MD Unavailable [phone] AnaliliaAzucena APRN HEEL SCOURER Unavailable Un available Clinic - [facility] Unavailabl e Encounter Details Date Type Department Care Team (Late st Contact Info) Description 05/12/2021 [facility] [place] [facility] Weight Management Clinic [place] 069869 [facility] 4th [place] [address], [place] [address] [address] Social History Tobacco Use Types Packs/Day Years [...] PM CDT Legal Sex Male 2:58 AM NEGATIVE STRIPPER Gender Identity Male 11/29/2020 12:43 PM CDT Sexual Orientation Choose not to disclose 2021 4:07 PM NEGATIVE STRIPPER documented as of this encounter Plan of Treatment Upcoming Encounters Date Type Department Care Team (Late st Contact Info) Description 09/25/2024 8:30 AM NEGATIVE STRIPPER Office Visit [facility] Physical Medicine and Rehabilitation Clinic [address], [address] [place] [address] Chucho Santizo MD [address] [place] [address] 782495 documented as of this encounter Visit Diagnoses Not on filedocumented in this encounter Additional Health Concerns Assessment Noted Time PHQ-9 Depression Total Score: 5 01/07/20 21 8:18 AM CDT documented as of this encounter Care Teams Vp Business Development Relationship Specialty Start Date End Date Ben Cadena PCP - General Family Practice 09/04/19 Angel Mccormick MD Family Practice 09/04/19 Chucho Clement MD [address] [place] [address] Orthopedics 09/04/19 Darion So MD [address] [place] [address] Nephrology 12/09/20 Carolina Flanagan PA-C 420 [facility] 195 [place] [address] Assigned Surgical Provider 01/16/21 08/20/21 Robert Boggs, PhD LP 420 [facility] 741 [place] [address] Assigned Behavioral Health Provider 07/10/21 02/23/23 Milla Ramsay PA-C [facility], SURGERY 909 [facility] [address] [place] [address] Assigned Gastroenterology Provider 08/21/21 09/24/21 Regis Lyons MD 420 [facility] 195 [place] [address] Assigned Surgical Provider 08/21/21 02/02/23 Gutierrez Guthrie DO [address], [facility] 200 [place] [address] Orthopaedic Surgery Foot and Ankle Surgery 02/05/23 Erick Lagunas MD [address] [facility] 300 [place] [address] Assigned Infectious Disease Provider 02/10/23 Azucena Billingsley APRN HEEL SCOURER Assigned Pain Medication Provider 06/16/23 08/15/23 Azucena Billingsley APRN HEEL SCOURER Assigned PCP 05/09/23 09/13/23 Azucena Billingsley APRN HEEL SCOURER Assigned PCP 10/13/23 11/12/23 Chucho Santizo MD 9 [place] [address] Assigned Neuroscience Provider 10/05/23 Azucena Billingsley APRN HEEL SCOURER Assigned PCP 09/14/23 10/12/23 [facility] [address] [place] [address] Assigned PCP 11/13/23 documented as of this encounter
--- OUTSIDE RECORDS SUMMARY | 2024-06-27 07:10 | XMS_ITS | Encounter Summary ---
Author Organization [place] Address [address] [place] [address] Care Team Providers Care Vehicle Refinisher Name Role Phone Ben Cadena Primary Care Provider [phone] Angel Mccormick MD Unavailable [phone] Chucho Clement MD Unavailable [phone] Chucho Clement MD Unavailable [phone] Darion So MD Unavailable [phone] Carolina Flanagan PA-C Unavailable + [phone] Robert Boggs PhD LP Unavailable +[phone] Milla Ramsay PA-C Unavailable +[phone] Regis Lyons MD Unavailable +[phone] Gutierrez Guthrie DO Unavailable + [phone] Erick Lagunas MD Unavailable +[phone] AnaliliaAzucena APRN ASSOCIATE PROFESSOR PHYSICIAN Unavailable Un available AnaliliaAzucena APRN ASSOCIATE PROFESSOR PHYSICIAN Unavailable Un available AnaliliaAzucena APRN ASSOCIATE PROFESSOR PHYSICIAN Unavailable Un available Chucho Santizo MD Unavailable [phone] AnaliliaAzucena chilel APRN ASSOCIATE PROFESSOR PHYSICIAN Unavailable Un available Clinic - [facility] Unavailabl e Encounter Details Date Type Department Care Team (Late st Contact Info) Description 02/07/2021 [facility] [place] [address] [place] [address] [facility] Social History Tobacco Use Types Packs/Day [...] PM CDT Legal Sex Male 2:58 AM POT RUNNER Gender Identity Male 11/29/2020 12:43 PM CDT Sexual Orientation Choose not to disclose 2021 4:07 PM POT RUNNER documented as of this encounter Plan of Treatment Upcoming Encounters Date Type Department Care Team (Late st Contact Info) Description 09/25/2024 8:30 AM POT RUNNER Office Visit [facility] and Rehabilitation Clinic [address], [address] [place] [address] Chucho Santizo MD [address] [place] [address] documented as of this encounter Visit Diagnoses Not on filedocumented in this encounter Additional Health Concerns Assessment Noted Time PHQ-9 Depression Total Score: 5 01/07/20 21 8:18 AM CDT documented as of this encounter Care Teams Vehicle Refinisher Relationship Specialty Start Date End Date Ben Cadena PCP - General Family Practice 09/04/19 Angel Mccormick MD Family Practice 09/04/19 Chucho Clement MD [address] [place] [address] Orthopedics 09/04/19 Chucho Clement MD [address] [place] [address] Assigned Musculoskeletal Provider 05/14/20 03/19/21 Darion So MD [address] [place] [address] Nephrology 12/09/20 Carolina Flanagan PA-C 420 [facility] 195 [place], [place] [address] Assigned Surgical Provider 01/16/21 08/20/21 Robert Boggs, PhD LP 420 [facility] 741 [place], [place] [address] Assigned Behavioral Health Provider 07/10/21 02/23/23 Milla Ramsay PA-C [facility], SURGERY 909 [facility] 4TH [place] [address] Assigned Gastroenterology Provider 08/21/21 09/24/21 Regis Lyons MD 420 [facility] 195 [place], [place] [address] Assigned Surgical Provider 08/21/21 02/02/23 Gutierrez Guthrie DO [address] Zhang [address], [address] [id number] Orthopaedic Surgery Foot and Ankle Surgery 02/05/23 Erick Lagunas MD [address] [address] Assigned Infectious Disease Provider 02/10/23 Azucena Billingsley APRN ASSOCIATE PROFESSOR PHYSICIAN Assigned Pain Medication Provider 06/16/23 08/15/23 Azucena Billingsley APRN ASSOCIATE PROFESSOR PHYSICIAN Assigned PCP 05/09/23 09/13/23 Azucena Billingsley APRN ASSOCIATE PROFESSOR PHYSICIAN Assigned PCP 10/13/23 11/12/23 Chucho Santizo MD [address] [place] [address] Assigned Neuroscience Provider 10/05/23 Azucena Billingsley APRN ASSOCIATE PROFESSOR PHYSICIAN Assigned PCP 09/14/23 10/12/23 [facility] [address] [place] [address] Assigned PCP 11/13/23 documented as of this encounter
--- OUTSIDE RECORDS SUMMARY | 2024-06-27 07:10 | XMS_ITS | Encounter Summary ---
Author Organization [facility] Address [address] [place] [address] Care Team Providers Care Horizontal Boring Mill Operator Name Role Phone Ben Cadena Primary Care Provider [phone] Angel Mccormick MD Unavailable [phone] Chucho Clement MD Unavailable +[phone] Darion So MD Unavailable +[phone] Carolina Flanagan PA-C Unavailable + [phone] Robert Boggs PhD LP Unavailable +[phone] Milla Ramsay PA-C Unavailable +[phone] Regis Lyons MD Unavailable +[phone] Gutierrez Guthrie DO Unavailable + [phone] Erick Lagunas MD Unavailable [phone] AnaliliaAzucena APRN COIL STRAPPER Unavailable Un available AnaliliaAzucena APRN COIL STRAPPER Unavailable Un available AnaliliaAzucena APRN COIL STRAPPER Unavailable Un available Chucho Santizo MD Unavailable [phone] AnaliliaAzucena APRN COIL STRAPPER Unavailable Un available Clinic - [facility] Unavailabl e Encounter Details Date Type Department Care Team (Late st Contact Info) Description 04/11/2021 [facility]ly [facility] [address] 4th [place] [address] [facility] Social History Tobacco Use Types Packs/Day Years [...] PM CDT Legal Sex Male 2:58 AM CATTLE RANCHER Gender Identity Male 11/29/2020 12:43 PM CDT Sexual Orientation Choose not to disclose 2021 4:07 PM CATTLE RANCHER documented as of this encounter Plan of Treatment Upcoming Encounters Date Type Department Care Team (Late st Contact Info) Description 09/25/2024 8:30 AM CATTLE RANCHER Office Visit [facility] Rehabilitation [facility] [address], [facility] 200 [place] [address] Chucho Santizo MD [address] [place] [address] [id number] documented as of this encounter Visit Diagnoses Not on filedocumented in this encounter Additional Health Concerns Assessment Noted Time PHQ-9 Depression Total Score: 5 01/07/20 21 8:18 AM CDT documented as of this encounter Care Teams Horizontal Boring Mill Operator Relationship Specialty Start Date End Date Ben Cadena PCP - General Family Practice 09/04/19 Angel Mccormick MD Family Practice 09/04/19 Chucho Clement MD [address] [place] [address] Orthopedics 09/04/19 Darion So MD [address] [place] [address] Nephrology 12/09/20 Carolina Flanagan PA-C [address] [place] [address] [facility] 195 [place] [address] Assigned Surgical Provider 01/16/21 08/20/21 Robert Boggs, PhD LP [address] [facility] 741 [place] [address] Assigned Behavioral Health Provider 07/10/21 02/23/23 Milla Ramsay PA-C [facility], SURGERY [address] [place] [address] Assigned Gastroenterology Provider 08/21/21 09/24/21 Regis Lyons MD 420 [facility] SE [facility] 195 [place] [address] Assigned Surgical Provider 08/21/21 02/02/23 Gutierrez Guthrie DO [address], [facility] 200 [place], [place] [id number] Orthopaedic Surgery Foot and Ankle Surgery 02/05/23 Erick Lagunas MD [address] [facility] 300 [place] [address] Assigned Infectious Disease Provider 02/10/23 Azucena Billingsley APRN COIL STRAPPER Assigned Pain Medication Provider 06/16/23 08/15/23 Azucena Billingsley APRN COIL STRAPPER Assigned PCP 05/09/23 09/13/23 Azucena Billingsley APRN COIL STRAPPER Assigned PCP 10/13/23 11/12/23 Chucho Santizo MD [address] [place] [address] Assigned Neuroscience Provider 10/05/23 Azucena Billingsley APRN COIL STRAPPER Assigned PCP 09/14/23 10/12/23 [facility] [address] [place] [address] Assigned PCP 11/13/23 documented as of this encounter
--- OUTSIDE RECORDS SUMMARY | 2024-06-27 07:10 | XMS_ITS | Encounter Summary ---
Author Organization [place] Address [address] [place] [address] Care Team Providers Care Associate Publisher Name Role Phone Ben Cadena Primary Care Provider [phone] Angel Mccormick MD Unavailable [phone] Chucho Clement MD Unavailable +[phone] Darion So MD Unavailable +[phone] Carolina Flanagan PA-C Unavailable + [phone] Robert Boggs PhD LP Unavailable +[phone] Milla Ramsay PA-C Unavailable +[phone] Regis Lyons MD Unavailable +[phone] Gutierrez Guthrie DO Unavailable + [phone] Erick Lagunas MD Unavailable [phone] AnaliliaAzucena APRN MAILING SECTION CLERK Unavailable Un available AnaliliaAzucena APRN MAILING SECTION CLERK Unavailable Un available AnaliliaAzucena APRN MAILING SECTION CLERK Unavailable Un available Chucho Santizo MD Unavailable [phone] AnaliliaAzucena APRN MAILING SECTION CLERK Unavailable Un available Clinic - [facility] Unavailabl e Encounter Details Date Type Department Care Team (Late st Contact Info) Description 08/03/2021 [facility] [place] [id number] [facility] 4th [place] [address] Alexia Machado CMA Social History [...] PM CDT Legal Sex Male 2:58 AM CODE INSPECTOR Gender Identity Male 11/29/2020 12:43 PM CDT Sexual Orientation Choose not to disclose 2021 4:07 PM CODE INSPECTOR COVID-19 Exposure Response Date Recorded In the last month, have you been in contact with someone who was confirmed or suspected to have Coronavirus / COVID-19? No / Unsure 08/04/2021 8:33 AM CODE INSPECTOR documented as of this encounter Plan of Treatment Upcoming Encounters Date Type Department Care Team (Late st Contact Info) Description 09/25/2024 8:30 AM CODE INSPECTOR Office Visit [facility] [address], [address] [place] [address] Chucho Santizo MD [address] [place] [address] documented as of this encounter Visit Diagnoses Not on filedocumented in this encounter Additional Health Concerns Assessment Noted Time PHQ-9 Depression Total Score: 2 06/30/20 21 7:02 AM CODE INSPECTOR documented as of this encounter Care Teams Associate Publisher Relationship Specialty Start Date End Date Ben Cadena PCP - General Family Practice 09/04/19 Angel Mccormick MD Family Practice 09/04/19 Chucho Clement MD [address] [place] [address] Orthopedics 09/04/19 Darion So MD [address] [place] [address] Nephrology 12/09/20 Carolina Flanagan PA-C 420 [facility] [place] 195 [place] [address] Assigned Surgical Provider 01/16/21 08/20/21 Robert Boggs, PhD LP 420 [facility] [place] 741 [place] [address] Assigned Behavioral Health Provider 07/10/21 02/23/23 Milla Ramsay PA-C [facility], SURGERY [address] [facility] [address] [place] [address] Assigned Gastroenterology Provider 08/21/21 09/24/21 Regis Lyons MD 420 [facility] [place] 195 [place] [address] Assigned Surgical Provider 08/21/21 02/02/23 Gutierrez Guthrie DO [address], [address] [address] Orthopaedic Surgery Foot and Ankle Surgery 02/05/23 Erick Lagunas MD [address] [facility] 300 [place] [address] Assigned Infectious Disease Provider 02/10/23 Azucena Billings[place] APRN MAILING SECTION CLERK Assigned Pain Medication Provider 06/16/23 08/15/23 Azucena Billings[place] APRN MAILING SECTION CLERK Assigned PCP 05/09/23 09/13/23 Azucena Billings[place] APRN MAILING SECTION CLERK Assigned PCP 10/13/23 11/12/23 Chucho Santizo MD 909 [place] [address] Assigned Neuroscience Provider 10/05/23 Azucena Billings[place] APRN MAILING SECTION CLERK Assigned PCP 09/14/23 10/12/23 [facility] [address] [place] [address] Assigned PCP 11/13/23 documented as of this encounter
--- OUTSIDE RECORDS SUMMARY | 2024-06-27 07:10 | XMS_ITS | Encounter Summary ---
Author Organization [facility] Address [address] [place] [address] Care Team Providers Care Product Representative Name Role Phone Ben Cadena Primary Care Provider [phone] Angel Mccormick MD Unavailable [phone] Chucho Clement MD Unavailable +[phone] Chucho Clement MD Unavailable [phone] Darion So MD Unavailable [phone] Carolina Flanagan PA-C Unavailable + [phone] Regis Lyons MD Unavailable +[phone] Carolina Flanagan PA-C Unavailable +[phone] Robert Boggs PhD LP Unavailable +[phone] Milla Ramsay PA-C Unavailable +[phone] Regis Lyons MD Unavailable +[phone] Gutierrez Guthrie DO Unavailable + [phone] Erick Lagunas MD Unavailable +[phone] AnaliliaAzucena APRN QUALITY CONTROL REPRESENTATIVE Unavailable Un available Analilia, Azucena Veras APRN QUALITY CONTROL REPRESENTATIVE Unavailable Un available Analilia, Azucena Veras APRN QUALITY CONTROL REPRESENTATIVE Unavailable Un available Chucho Santizo MD Unavailable [phone] AnaliliaAzucena chilel APRN QUALITY CONTROL REPRESENTATIVE Unavailable Un available [facility] Unavailabl e Encounter Details Date Type Department Care Team (Late st Contact Info) Description 12/17/[address] [facility] [address] [place] [address] RN 420 [facility] 195 [place], [place] [address] Social History Tobacco Use Types Packs/Day Years [...] PM CDT Legal Sex Male 2:58 AM BRAKESHOE REPAIRER Gender Identity Male 11/29/2020 12:43 PM CDT Sexual Orientation Choose not to disclose 2021 4:07 PM BRAKESHOE REPAIRER documented as of this encounter Plan of Treatment Upcoming Encounters Date Type Department Care Team (Late st Contact Info) Description 09/25/2024 8:30 AM BRAKESHOE REPAIRER Office Visit [facility] Medicine and Rehabilitation Clinic [address], [address] [place] [address] Chucho Santizo MD [address] [place] [address] 817925 documented as of this encounter Visit Diagnoses Not on filedocumented in this encounter Additional Health Concerns Assessment Noted Time PHQ-9 Depression Total Score: 7 09/18/19 20 7:04 AM BRAKESHOE REPAIRER documented as of this encounter Care Teams Product Representative Relationship Specialty Start Date End Date Ben Cadena PCP - General Family Practice 09/04/19 Angel Mccormick MD Family Practice 09/04/19 Chucho Clement MD [facility] [place] [address] Orthopedics 09/04/19 Chucho Clement MD [address] [place] [address] 243134 Assigned Musculoskeletal Provider 05/14/20 03/19/21 Darion So MD [address] [place] [address] Nephrology 12/09/20 Carolina Flanagan PA-C [address] [facility] 195 [place], [place] [address] Assigned Surgical Provider 12/12/20 01/08/21 Regis Lyons MD [address] [facility] 195 [place], [place] [address] Assigned Surgical Provider 01/09/21 01/15/21 Carolina Flanagan PA-C [address] [facility] 195 [place], [place] [address] Assigned Surgical Provider 01/16/21 08/20/21 Robert Boggs, PhD LP [address] [facility] 741 [place] [address] Assigned Behavioral Health Provider 07/10/21 02/23/23 Milla Ramsay PA-C [facility], SURGERY 9[address] [facility] [address] [place] [address] Assigned Gastroenterology Provider 08/21/21 09/24/21 Regis Lyons MD [address] [place] [address] 195 [place] [address] Assigned Surgical Provider 08/21/21 02/02/23 Gutierrez Guthrie DO [address], [address] [address] Orthopaedic Surgery Foot and Ankle Surgery 02/05/23 Erick Lagunas MD [address] [place] [address] 300 [place] [address] Assigned Infectious Disease Provider 02/10/23 Azucena Billingsley APRN QUALITY CONTROL REPRESENTATIVE Assigned Pain Medication Provider 06/16/23 08/15/23 Azucena Billings[place] APRN QUALITY CONTROL REPRESENTATIVE Assigned PCP 05/09/23 09/13/23 Azucena Billingsley APRN QUALITY CONTROL REPRESENTATIVE Assigned PCP 10/13/23 11/12/23 Chucho Santizo MD [address] [place] [address] Assigned Neuroscience Provider 10/05/23 Azucena Billings[place] APRN QUALITY CONTROL REPRESENTATIVE Assigned PCP 09/14/23 10/12/23 [facility] [address] [place] [address] Assigned PCP 11/13/23 documented as of this encounter
--- OUTSIDE RECORDS SUMMARY | 2024-06-27 07:10 | XMS_ITS | Encounter Summary ---
Author Organization [place] Address [address] [place] [address] Care Team Providers Care Industrial Editor Name Role Phone Ben Cadena Primary Care Provider [phone] Angel Mccormick MD Unavailable [phone] Chucho Clement MD Unavailable +[phone] Darion So MD Unavailable [phone] Carolina Flanagan PA-C Unavailable + [phone] Robert Boggs PhD LP Unavailable +[phone] Milla Ramsay PA-C Unavailable +[phone] Regis Lyons MD Unavailable +[phone] Gutierrez Guthrie DO Unavailable + [phone] Erick Lagunas MD Unavailable AnaliliaAzucena APRN PAPER TWISTER TENDER Unavailable Un available AnaliliaAzucena APRN PAPER TWISTER TENDER Unavailable Un available AnaliliaAzucena APRN PAPER TWISTER TENDER Unavailable Un available Chucho Santizo MD Unavailable [phone] AnaliliaAzucena APRN PAPER TWISTER TENDER Unavailable Un available Clinic - [facility] Unavailabl e Encounter Details Date Type Department Care Team (Late st Contact Info) Description 07/04/2021 [facility] Management [facility] [address] 4th [place] [address] [facility] Social History Tobacco Use Types Packs/Day Years [...] PM CDT Legal Sex Male 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 DEVELOPER Gender Identity Male 11/29/2020 12:43 PM CDT Sexual Orientation Choose not to disclose 2021 4:07 PM INFRASTRUCTURE DEVELOPER documented as of this encounter Plan of Treatment Upcoming Encounters Date Type Department Care Team (Late st Contact Info) Description 09/25/2024 8:30 AM INFRASTRUCTURE DEVELOPER Office Visit [facility] Physical Medicine and Rehabilitation Clinic [address], [facility] 200 [place] [address] Chucho Santizo MD [address] [place] [address] documented as of this encounter Visit Diagnoses Not on filedocumented in this encounter Additional Health Concerns Assessment Noted Time PHQ-9 Depression Total Score: 2 06/30/20 21 7:02 AM INFRASTRUCTURE DEVELOPER documented as of this encounter Care Teams Industrial Editor Relationship Specialty Start Date End Date Ben Cadena PCP - General Family Practice 09/04/19 Angel Mccormick MD Family Practice 09/04/19 Chucho Clement MD [address] [place] [address] Orthopedics 09/04/19 Darion So MD [address] [place] [address] Nephrology 12/09/20 Carolina Flanagan PA-C [address] [place] [address] [facility] 195 [place] [address] Assigned Surgical Provider 01/16/21 08/20/21 Robert Boggs, PhD LP [address] [place] [address] [facility] 741 [place] [address] Assigned Behavioral Health Provider 07/10/21 02/23/23 Milla Ramsay PA-C [facility], SURGERY [address] [facility] [address] [place] [address] Assigned Gastroenterology Provider 08/21/21 09/24/21 Regis Lyons MD 420 [facility] 195 [place] [address] Assigned Surgical Provider 08/21/21 02/02/23 Gutierrez Guthrie DO [address], [facility] 200 [place], [place] [address] Orthopaedic Surgery Foot and Ankle Surgery 02/05/23 Erick Lagunas MD [address] [facility] 300 [place], [place] [address] Assigned Infectious Disease Provider 02/10/23 Azucena Billingsley APRN PAPER TWISTER TENDER Assigned Pain Medication Provider 06/16/23 08/15/23 Azucena Billingsley APRN PAPER TWISTER TENDER Assigned PCP 05/09/23 09/13/23 Azucena Billingsley APRN PAPER TWISTER TENDER Assigned PCP 10/13/23 11/12/23 Chucho Santizo MD [address] [place] [address] Assigned Neuroscience Provider 10/05/23 Azucena Billingsley APRN PAPER TWISTER TENDER Assigned PCP 09/14/23 10/12/23 [facility] [address] [place] [address] Assigned PCP 11/13/23 documented as of this encounter
--- OUTSIDE RECORDS SUMMARY | 2024-06-27 07:10 | XMS_ITS | Encounter Summary ---
Author Organization [place] Address [address] [place] [address] Care Team Providers Care Supervisor Type Bar And Segment Name Role Phone Ben Cadena Primary Care Provider [phone] Angel Mccormick MD Unavailable [phone] Chucho Clement MD Unavailable +[phone] Darion So MD Unavailable +[phone] Carolina Flanagan PA-C Unavailable + [phone] Robert Boggs PhD LP Unavailable +[phone] Milla Ramsay PA-C Unavailable +[phone] Regis Lyons MD Unavailable +[phone] Gutierrez Guthrie DO Unavailable + [phone] Erick Lagunas MD Unavailable [phone] AnaliliaAzucena APRN PRECISION PRINTING WORKER Unavailable Un available AnaliliaAzucena APRN PRECISION PRINTING WORKER Unavailable Un available AnaliliaAzucena APRN PRECISION PRINTING WORKER Unavailable Un available Chucho Santizo MD Unavailable [phone] AnaliliaAzucena APRN PRECISION PRINTING WORKER Unavailable Un available Clinic - [facility] Unavailabl e Encounter Details Date Type Department Care Team (Late st Contact Info) Description 08/04/2021 [facility] Weight Management Clinic [address] 4th [place] [address] [facility] Social History Tobacco Use Types Packs/Day Years [...] PM CDT Legal Sex Male 2:58 AM THERMOMETER PRODUCTION WORKER Gender Identity Male 11/29/2020 12:43 PM CDT Sexual Orientation Choose not to disclose 2021 4:07 PM THERMOMETER PRODUCTION WORKER COVID-19 Exposure Response Date Recorded In the last month, have you been in contact with someone who was confirmed or suspected to have Coronavirus / COVID-19? No / Unsure 08/04/2021 8:33 AM THERMOMETER PRODUCTION WORKER documented as of this encounter Plan of Treatment Upcoming Encounters Date Type Department Care Team (Late st Contact Info) Description 09/25/2024 8:30 AM THERMOMETER PRODUCTION WORKER Office Visit [facility] Physical Medicine and Rehabilitation Clinic [address], [address] [place] [address] Chucho Santizo MD [address] [place] [address] documented as of this encounter Visit Diagnoses Not on filedocumented in this encounter Additional Health Concerns Assessment Noted Time PHQ-9 Depression Total Score: 2 06/30/20 21 7:02 AM THERMOMETER PRODUCTION WORKER documented as of this encounter Care Teams Supervisor Type Bar And Segment Relationship Specialty Start Date End Date Ben Cadena PCP - General Family Practice 09/04/19 Angel Mccormick MD Family Practice 09/04/19 Chucho Clement MD [address] [place] [address] Orthopedics 09/04/19 Darion So MD [address] [place] [address] Nephrology 12/09/20 Carolina Flanagan PA-C 420 [facility] 195 [place] [address] Assigned Surgical Provider 01/16/21 08/20/21 Robert Boggs, PhD LP 420 [facility] 741 [place] [address] Assigned Behavioral Health Provider 07/10/21 02/23/23 Milla Ramsay PA-C [facility], SURGERY [address] [facility] [address] [place] [address] Assigned Gastroenterology Provider 08/21/21 09/24/21 Regis Lyons MD 420 [facility] 195 [place] [address] Assigned Surgical Provider 08/21/21 02/02/23 Gutierrez Guthrie DO [address], [address] [address] Orthopaedic Surgery Foot and Ankle Surgery 02/05/23 Erick Lagunas MD [address] [place] [address] [place] [address] Assigned Infectious Disease Provider 02/10/23 Azucena Billings[place] APRN PRECISION PRINTING WORKER Assigned Pain Medication Provider 06/16/23 08/15/23 Azucena Billings[place] APRN PRECISION PRINTING WORKER Assigned PCP 05/09/23 09/13/23 Azucena Billingsley APRN PRECISION PRINTING WORKER Assigned PCP 10/13/23 11/12/23 Chucho Santizo MD 909 [place] [address] Assigned Neuroscience Provider 10/05/23 Azucena Billings[place] APRN PRECISION PRINTING WORKER Assigned PCP 09/14/23 10/12/23 [facility] [address] [place] [address] Assigned PCP 11/13/23 documented as of this encounter
--- OUTSIDE RECORDS SUMMARY | 2024-06-27 07:10 | XMS_ITS | Encounter Summary ---
Author Organization [place] Address [address] [place] [address] Care Team Providers Care Dent Remover Name Role Phone Ben Cadena Primary Care Provider [phone] Angel Mccormick MD Unavailable +[phone] Chucho Clement MD Unavailable [phone] Chucho Clement MD Unavailable [phone] Darion So MD Unavailable +[phone] Carolina Flanagan PA-C Unavailable + [phone] Guanaco Michael MD Unavailable +[phone] Regis Lyons MD Unavailable +[phone] Carolina Flanagan PA-C Unavailable +[phone] Robert Boggs PhD LP Unavailable +[phone] Milla Ramsay PA-C Unavailable +[phone] Regis Lyons MD Unavailable +[phone] Gutierrez Guthrie DO Unavailable + [phone] Erick Lagunas MD Unavailable +[phone] AnaliliaAzucena APRN STONEWORK TRACER Unavailable Un available Analilia, Azucena Veras APRN STONEWORK TRACER Unavailable Un available Analilia, Azucena Veras APRN STONEWORK TRACER Unavailable Un available Chucho Santizo MD Unavailable [phone] AnaliliaAzucena APRN STONEWORK TRACER Unavailable Un available Clinic - [facility] Unavailabl e Encounter Details Date Type Department Care Team (Late st Contact Info) Description 12/09/2020 MyC Medical Advice [facility] [address]th [place] [address] [facility] Social History Tobacco Use Types Packs/Day Years [...] CDT Legal Sex Male 2:58 AM SUPERVISOR COOLER SERVICE Gender Identity Male 11/29/2020 12:43 PM CDT Sexual Orientation Choose not to disclose 2021 4:07 PM SUPERVISOR COOLER SERVICE documented as of this encounter Plan of Treatment Upcoming Encounters Date Type Department Care Team (Late st Contact Info) Description 09/25/2024 8:30 AM SUPERVISOR COOLER SERVICE Office Visit [facility] [address], [address] [place] [phone] Chucho Santizo MD [address] [place] [address] [id number] documented as of this encounter Visit Diagnoses Not on filedocumented in this encounter Additional Health Concerns Assessment Noted Time PHQ-9 Depression Total Score: 7 09/18/19 20 7:04 AM SUPERVISOR COOLER SERVICE documented as of this encounter Care Teams Dent Remover Relationship Specialty Start Date End Date Ben Cadena PCP - General Family Practice 09/04/19 Angel Mccormick MD Family Practice 09/04/19 Chucho Clement MD [address] [place], [place] [address] [place] [address] Orthopedics 09/04/19 Chucho Clement MD [address] [place], [place] [address] [place] [address] Assigned Musculoskeletal Provider 05/14/20 03/19/21 Darion So MD [address] [place] [address] Nephrology 12/09/20 Carolina Flanagan PA-C [address] [address] 141165 Assigned Surgical Provider 12/12/20 01/08/21 Guanaco Michael MD [address] 089965 Assigned Surgical Provider 12/05/20 12/11/20 Regis Lyons MD [address] 355035 Assigned Surgical Provider 01/09/21 01/15/21 Carolina Flanagan PA-C [address] 961085 Assigned Surgical Provider 01/16/21 08/20/21 Robert Boggs, PhD LP 420 [facility] 741 [place], [place] 3927[address] Assigned Behavioral Health Provider 07/10/21 02/23/23 Milla Ramsay PA-C [facility] 909 [facility] 4[address] [place] [address] Assigned Gastroenterology Provider 08/21/21 09/24/21 Regis Lyons MD 420 [facility] 195 [place] [address] Assigned Surgical Provider 08/21/21 02/02/23 Gutierrez Guthrie DO [address], [facility] 200 [place] [address] Orthopaedic Surgery Foot and Ankle Surgery 02/05/23 Erick Lagunas MD [facility] [address] [facility] 300 [place] [address] Assigned Infectious Disease Provider 02/10/23 Azucena Billingsley APRN STONEWORK TRACER Assigned Pain Medication Provider 06/16/23 08/15/23 Azucena Billingsley APRN STONEWORK TRACER Assigned PCP 05/09/23 09/13/23 Azucena Billingsley APRN STONEWORK TRACER Assigned PCP 10/13/23 11/12/23 Chucho Santizo MD [address] [place] [address] Assigned Neuroscience Provider 10/05/23 Azucena Billingsley APRN STONEWORK TRACER Assigned PCP 09/14/23 10/12/23 [facility] [address] [place] [address] Assigned PCP 11/13/23 documented as of this encounter
--- OUTSIDE RECORDS SUMMARY | 2024-06-27 07:10 | XMS_ITS | Encounter Summary ---
Author Organization [place] Address [address] [place] [address] Care Team Providers Care Sanitation Inspector Name Role Phone Ben Cadena Primary Care Provider [phone] Angel Mccormick MD Unavailable +[phone] Chucho Clement MD Unavailable +[phone] Darion So MD Unavailable +[phone] Carolina Flanagan PA-C Unavailable + [phone] Robert Boggs PhD LP Unavailable +[phone] Milla Ramsay PA-C Unavailable +[phone] Regis Lyons MD Unavailable +[phone] Gutierrez Guthrie DO Unavailable + [phone] Erick Lagunas MD Unavailable AnaliliaAzucena APRN ALIGNING CHECKER Unavailable Un available AnaliliaAzucena APRN ALIGNING CHECKER Unavailable Un available AnaliliaAzucena APRN ALIGNING CHECKER Unavailable Un available Chucho Santizo MD Unavailable [phone] AnaliliaAzucena APRN ALIGNING CHECKER Unavailable Un available Clinic - [facility] Unavailabl e Encounter Details Date Type Department Care Team (Late st Contact Info) Description 07/25/2021 [facility] Weight Management [facility] [place] 054[address] [facility] 4th [place] [address], [place] [address] [id number] Social History Tobacco Use Types Packs/Day Years [...] PM CDT Legal Sex Male 2:58 AM WASH RACK OPERATOR Gender Identity Male 11/29/2020 12:43 PM CDT Sexual Orientation Choose not to disclose 2021 4:07 PM WASH RACK OPERATOR documented as of this encounter Plan of Treatment Upcoming Encounters Date Type Department Care Team (Late st Contact Info) Description 09/25/2024 8:30 AM WASH RACK OPERATOR Office Visit [facility] Medicine and Rehabilitation Clinic [address], [address] [place] [phone] Chucho Santizo MD [address] [place] [address] [id number] documented as of this encounter Visit Diagnoses Not on filedocumented in this encounter Additional Health Concerns Assessment Noted Time PHQ-9 Depression Total Score: 2 06/30/20 21 7:02 AM WASH RACK OPERATOR documented as of this encounter Care Teams Sanitation Inspector Relationship Specialty Start Date End Date Ben Cadena PCP - General Family Practice 09/04/19 Angel Mccormick MD Family Practice 09/04/19 Chucho Clement MD [address] [place] [address] Orthopedics 09/04/19 Darion So MD [address] [place] [phone] Nephrology 12/09/20 Carolina Flanagan PA-C 420 [facility] 195 [place] [address] Assigned Surgical Provider 01/16/21 08/20/21 Robert Boggs, PhD LP 420 [facility] 741 [place] [address] Assigned Behavioral Health Provider 07/10/21 02/23/23 Milla Ramsay PA-C [facility], SURGERY 9[address] [facility] [address] [place] [address] Assigned Gastroenterology Provider 08/21/21 09/24/21 Regis Lyons MD 420 [facility] 195 [place] [address] Assigned Surgical Provider 08/21/21 02/02/23 Gutierrez Guthrie DO [address], [facility] 200 [place] [address] Orthopaedic Surgery Foot and Ankle Surgery 02/05/23 Erick Lagunas MD [address] [facility] 300 [place] [address] Assigned Infectious Disease Provider 02/10/23 Azucena Billingsley APRN ALIGNING CHECKER Assigned Pain Medication Provider 06/16/23 08/15/23 Azucena Billingsley APRN ALIGNING CHECKER Assigned PCP 05/09/23 09/13/23 Azucena Billingsley APRN ALIGNING CHECKER Assigned PCP 10/13/23 11/12/23 Chucho Santizo MD 9 [place] [address] Assigned Neuroscience Provider 10/05/23 Azucena Billingsley APRN ALIGNING CHECKER Assigned PCP 09/14/23 10/12/23 [facility] [address] [place] [address] Assigned PCP 11/13/23 documented as of this encounter
--- OUTSIDE RECORDS SUMMARY | 2024-06-27 07:10 | XMS_ITS | Encounter Summary ---
Author Organization [place] Address [address] [place] [address] Care Team Providers Care Travelift Operator Name Role Phone Ben Cadena Primary Care Provider [phone] Angel Mccormick MD Unavailable +[phone] Chucho Clement MD Unavailable +[phone] Darion So MD Unavailable +[phone] Carolina Flanagan PA-C Unavailable + [phone] Robert Boggs PhD LP Unavailable +[phone] Milla Ramsay PA-C Unavailable +[phone] Regis Lyons MD Unavailable +[phone] Gutierrez Guthrie DO Unavailable + [phone] Erick Lagunas MD Unavailable [phone] AnaliliaAzucena APRN INSTRUMENT REPAIRER Unavailable Un available AnaliliaAzucena APRN INSTRUMENT REPAIRER Unavailable Un available AnaliliaAzucena APRN INSTRUMENT REPAIRER Unavailable Un available Chucho Santizo MD Unavailable [phone] AnaliliaAzucena APRN INSTRUMENT REPAIRER Unavailable Un available Clinic - [facility] Unavailabl e Encounter Details Date Type Department Care Team (Late st Contact Info) Description 07/12/2021 [facility] [place] [address]169 [facility] 4th [place] [address], RN 420 [facility] 195 [place] [address] Social History Tobacco Use Types Packs/Day Years [...] PM CDT Legal 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 Physical Medicine and Rehabilitation Clinic [address], [address] [address] Chucho Santizo MD [address] [place] [address] documented as of this encounter Visit Diagnoses Not on filedocumented in this encounter Additional Health Concerns Assessment Noted Time PHQ-9 Depression Total Score: 2 06/30/20 21 7:02 AM TRACTOR TRAILER TRUCK DRIVER documented as of this encounter Care Teams Travelift Operator Relationship Specialty Start Date End Date Ben Cadena PCP - General Family Practice 09/04/19 Angel Mccormick MD Family Practice 09/04/19 Chucho Clement MD [address] [place] [address] Orthopedics 09/04/19 Darion So MD [address] [place] [phone] Nephrology 12/09/20 Carolina Flanagan PA-C 420 [facility] 195 [place] [address] Assigned Surgical Provider 01/16/21 08/20/21 Robert Boggs, PhD LP 420 [facility] 741 [place] [address] Assigned Behavioral Health Provider 07/10/21 02/23/23 Milla Ramsay PA-C [facility], SURGERY 909 [facility] [address] [place] [address] Assigned Gastroenterology Provider 08/21/21 09/24/21 Regis Lyons MD 420 [facility] 195 [place], [place] 2207[address] Assigned Surgical Provider 08/21/21 02/02/23 Gutierrez Guthrie DO [address], [address] [address] Orthopaedic Surgery Foot and Ankle Surgery 02/05/23 rEick Lagunas MD [address] [facility] 300 [place] [address] Assigned Infectious Disease Provider 02/10/23 Azucena Billingsley APRN INSTRUMENT REPAIRER Assigned Pain Medication Provider 06/16/23 08/15/23 Azucena Billingsley APRN INSTRUMENT REPAIRER Assigned PCP 05/09/23 09/13/23 Azucena Billingsley APRN INSTRUMENT REPAIRER Assigned PCP 10/13/23 11/12/23 Chucho Santizo MD 909 [place] [address] Assigned Neuroscience Provider 10/05/23 Azucena Billingsley APRN INSTRUMENT REPAIRER Assigned PCP 09/14/23 10/12/23 [facility] [address] [place] [address] Assigned PCP 11/13/23 documented as of this encounter
--- OUTSIDE RECORDS SUMMARY | 2024-06-27 07:10 | XMS_ITS | Encounter Summary ---
Author Organization [place] Address [address] [place] [address] Care Team Providers Care Firm Administrator Name Role Phone Ben Cadena Primary Care Provider [phone] Angel Mccormick MD Unavailable [phone] Chucho Clement MD Unavailable [phone] Darion So MD Unavailable [phone] Carolina Flanagan PA-C Unavailable + [phone] Robert Boggs PhD LP Unavailable +[phone] Milla Ramsay PA-C Unavailable +[phone] Regsi Lyons MD Unavailable +[phone] Gutierrez Guthrie DO Unavailable + [phone] Erick Lagunas MD Unavailable AnaliliaAzucena APRN BODY TECHNICIAN/PAINTER Unavailable Un available AnaliliaAzucena APRN BODY TECHNICIAN/PAINTER Unavailable Un available AnaliliaAzucena APRN BODY TECHNICIAN/PAINTER Unavailable Un available Chucho Santizo MD Unavailable [phone] AnaliliaAzucena APRN BODY TECHNICIAN/PAINTER Unavailable Un available Clinic - [facility] Unavailabl e Encounter Details Date Type Department Care Team (Late st Contact Info) Description 05/30/2021 [facility] [place] [address] [facility] 4th [place] [address], [place] [address] [address] Social History Tobacco Use Types Packs/Day Years [...] PM CDT Legal Sex Male 2:58 AM TEST LEAD APPLICATION TESTING Gender Identity Male 11/29/2020 12:43 PM CDT Sexual Orientation Choose not to disclose 2021 4:07 PM TEST LEAD APPLICATION TESTING documented as of this encounter Plan of Treatment Upcoming Encounters Date Type Department Care Team (Late st Contact Info) Description 09/25/2024 8:30 AM TEST LEAD APPLICATION TESTING Office Visit [facility] Physical Medicine and Rehabilitation Clinic [address], [address] [place] [phone] Chucho Santizo MD [address] [place] [address] 757165 documented as of this encounter Visit Diagnoses Not on filedocumented in this encounter Additional Health Concerns Assessment Noted Time PHQ-9 Depression Total Score: 5 01/07/20 21 8:18 AM CDT documented as of this encounter Care Teams Firm Administrator Relationship Specialty Start Date End Date Ben Cadena PCP - General Family Practice 09/04/19 Angel Mccormick MD Family Practice 09/04/19 Chucho Clement MD [address] [place] [address] Orthopedics 09/04/19 Darion So MD [address] [place] [address] Nephrology 12/09/20 Carolina Flanagan PA-C 420 [facility] 195 [place] [address] Assigned Surgical Provider 01/16/21 08/20/21 Robert Boggs, PhD LP 420 [facility] 741 [place] [address] Assigned Behavioral Health Provider 07/10/21 02/23/23 Milla Ramsay PA-C [facility], SURGERY 909 [facility] [address] [place] [address] Assigned Gastroenterology Provider 08/21/21 09/24/21 Regis yLons MD 420 [facility] 195 [place] [address] Assigned Surgical Provider 08/21/21 02/02/23 Gutierrez Guthrie DO [address], [facility] 200 [place] [address] Orthopaedic Surgery Foot and Ankle Surgery 02/05/23 Erick Lagunas MD [address] [facility] 300 [place] [address] Assigned Infectious Disease Provider 02/10/23 Azucena Billingsley APRN BODY TECHNICIAN/PAINTER Assigned Pain Medication Provider 06/16/23 08/15/23 Azucena Billingsley APRN BODY TECHNICIAN/PAINTER Assigned PCP 05/09/23 09/13/23 Azucena Billingsley APRN BODY TECHNICIAN/PAINTER Assigned PCP 10/13/23 11/12/23 Chucho Santizo MD 9 [place] [address] Assigned Neuroscience Provider 10/05/23 Azucena Billingsley APRN BODY TECHNICIAN/PAINTER Assigned PCP 09/14/23 10/12/23 [facility] [address] [place] [address] Assigned PCP 11/13/23 documented as of this encounter
--- OUTSIDE RECORDS SUMMARY | 2024-06-27 07:10 | XMS_ITS | Encounter Summary ---
Author Organization [place] Address [address] [place] [address] Care Team Providers Care Tuna Purse Seiner Name Role Phone Ben Cadena Primary Care Provider [phone] Angel Mccormick MD Unavailable +[phone] Chucho Clement MD Unavailable +[phone] Darion So MD Unavailable +[phone] Carolina Flanagan PA-C Unavailable + [phone] Robert Boggs PhD LP Unavailable +[phone] Milla Ramsay PA-C Unavailable +[phone] Regis Lyons MD Unavailable +[phone] Gutierrez Guthrie DO Unavailable + [phone] Erick Lagunas MD Unavailable [phone] AnaliliaAzucena APRN DETASSELER Unavailable Un available AnaliliaAzucena APRN DETASSELER Unavailable Un available AnaliliaAzucena APRN DETASSELER Unavailable Un available Chucho Santizo MD Unavailable +[phone] AnaliliaAzucena APRN DETASSELER Unavailable Un available Clinic - [facility] Unavailabl e Encounter Details Date Type Department Care Team (Late st Contact Info) Description 05/09/2021 [facility] Weight Management Clinic [address] 4th [place] [address] [facility] Social History Tobacco Use [...] PM CDT Legal Sex Male 2:58 AM BATTER OUT Gender Identity Male 11/29/2020 12:43 PM CDT Sexual Orientation Choose not to disclose 2021 4:07 PM BATTER OUT documented as of this encounter Plan of Treatment Upcoming Encounters Date Type Department Care Team (Late st Contact Info) Description 09/25/2024 8:30 AM BATTER OUT Office Visit [facility] Physical Medicine and Rehabilitation Clinic [address], [facility] 200 [place] [address] Chucho Santizo MD [address] [place] [address]88[address] documented as of this encounter Visit Diagnoses Not on filedocumented in this encounter Additional Health Concerns Assessment Noted Time PHQ-9 Depression Total Score: 5 01/07/20 21 8:18 AM CDT documented as of this encounter Care Teams Tuna Purse Seiner Relationship Specialty Start Date End Date Ben Cadena PCP - General Family Practice 09/04/19 Angel Mccormick MD Family Practice 09/04/19 Chucho Clement MD [address] [place] [address] Orthopedics 09/04/19 Darion So MD [address] [place] [address] Nephrology 12/09/20 Carolina Flanagan PA-C [address] [facility] [address] [facility] 195 [place] [address] Assigned Surgical Provider 01/16/21 08/20/21 Robert Boggs, PhD LP [address] [facility] [address] [facility] 741 [place] [address] Assigned Behavioral Health Provider 07/10/21 02/23/23 Milla Ramsay PA-C [facility], SURGERY [address] [facility] [address] [place] [address] Assigned Gastroenterology Provider 08/21/21 09/24/21 Regis Lyons MD 420 [facility] 195 [place] [address] Assigned Surgical Provider 08/21/21 02/02/23 Gutierrez Guthrie DO [address], [facility] 200 [place], [place] [id number] Orthopaedic Surgery Foot and Ankle Surgery 02/05/23 Erick Lagunas MD [address] [facility] 300 [place] [address] Assigned Infectious Disease Provider 02/10/23 Azucena Billingsley APRN DETASSELER Assigned Pain Medication Provider 06/16/23 08/15/23 Azucena Billingsley APRN DETASSELER Assigned PCP 05/09/23 09/13/23 Azucena Billingsley APRN DETASSELER Assigned PCP 10/13/23 11/12/23 Chucho Santizo MD [address] [place] [address] Assigned Neuroscience Provider 10/05/23 Azucena Billingsley APRN DETASSELER Assigned PCP 09/14/23 10/12/23 [facility] [address] [place] [address] Assigned PCP 11/13/23 documented as of this encounter
--- OUTSIDE RECORDS SUMMARY | 2024-06-27 07:10 | XMS_ITS | Encounter Summary ---
Author Organization [place] Address [address] [place] [address] Care Team Providers Care Gluer Machine Setup Operator Name Role Phone Ben Cadena Primary Care Provider [phone] Angel Mccormick MD Unavailable +[phone] Chucho Clement MD Unavailable +[phone] Chucho Clement MD Unavailable +[phone] Darion So MD Unavailable +[phone] Carolina Flanagan PA-C Unavailable + [phone] Regis Lyons MD Unavailable +[phone] Carolina Flanagan PA-C Unavailable +[phone] Robert Boggs PhD LP Unavailable +[phone] Milla Ramsay PA-C Unavailable +[phone] Regis Lyons MD Unavailable +[phone] Gutierrez Guthrie DO Unavailable + [phone] Erick Lagunas MD Unavailable +[phone] AnaliliaAzucena APRN SHRINK PIT SUPERVISOR Unavailable Un available Analilia, Azucena Veras APRN SHRINK PIT SUPERVISOR Unavailable Un available Analilia, Azucena Veras APRN SHRINK PIT SUPERVISOR Unavailable Un available Chucho Santizo MD Unavailable [phone] AnaliliaAzucena chilel APRN SHRINK PIT SUPERVISOR Unavailable Un available [facility] Unavailabl e Encounter Details Date Type Department Care Team (Late st Contact Info) Description 01/06/2021 MyC Medical Advice [facility] [address] 4th [place] [address] Carolina Flanagan PA-C [address] [facility] 195 [place] [address] Social History Tobacco Use Types [...] PM CDT Legal Sex Male 2:58 AM DEPUTY CITY CLERK Gender Identity Male 11/29/2020 12:43 PM CDT Sexual Orientation Choose not to disclose 2021 4:07 PM DEPUTY CITY CLERK COVID-19 Exposure Response Date Recorded In the last month, have you been in contact with someone who was confirmed or suspected to have Coronavirus / COVID-19? No / Unsure 01/06/2021 8:16 AM CDT documented as of this encounter Plan of Treatment Upcoming Encounters Date Type Department Care Team (Late st Contact Info) Description 09/25/2024 8:30 AM DEPUTY CITY CLERK Office Visit [facility] [place] [id number] [facility], [address] [place] [address] Chucho Santizo MD [address] [place] [address] documented as of this encounter Visit Diagnoses Not on filedocumented in this encounter Additional Health Concerns Assessment Noted Time PHQ-9 Depression Total Score: 5 01/07/20 21 8:18 AM CDT documented as of this encounter Care Teams Gluer Machine Setup Operator Relationship Specialty Start Date End Date Ben Cadena PCP - General Family Practice 09/04/19 Angel Mccromick MD Family Practice 09/04/19 Chucho Clement MD [address] [place] [address] Orthopedics 09/04/19 Chucho Clement MD [address] [place] [address] Assigned Musculoskeletal Provider 05/14/20 03/19/21 Darion So MD [address] [place] [phone] Nephrology 12/09/20 Carolina Flanagan PA-C [address] [place] [address] Assigned Surgical Provider 12/12/20 01/08/21 Regis Lyons MD [address] [place] [address] 572395 Assigned Surgical Provider 01/09/21 01/15/21 Carolina Flanagan PA-C [address] [place] [address] Assigned Surgical Provider 01/16/21 08/20/21 Robert Boggs, PhD LP 420 [facility] 741 [place] [address] Assigned Behavioral Health Provider 07/10/21 02/23/23 Milla Ramsay PA-C [facility], SURGERY 909 [facility] 4[place] [address] Assigned Gastroenterology Provider 08/21/21 09/24/21 Regis Lyons MD 420 [facility] 195 [place] [address] Assigned Surgical Provider 08/21/21 02/02/23 Gutierrez Guthrie DO [address], [facility] 200 [place], [place] [id number] Orthopaedic Surgery Foot and Ankle Surgery 02/05/23 Erick Lagunas MD [facility] Mom[address] Gregg [facility] 300 [place] [address] Assigned Infectious Disease Provider 02/10/23 Azucena Billingsley APRN SHRINK PIT SUPERVISOR Assigned Pain Medication Provider 06/16/23 08/15/23 Azucena Billingsley APRN SHRINK PIT SUPERVISOR Assigned PCP 05/09/23 09/13/23 Azucena Billingsley APRN SHRINK PIT SUPERVISOR Assigned PCP 10/13/23 11/12/23 Chucho Santizo MD [address] [place] [address] Assigned Neuroscience Provider 10/05/23 Azucean Billingsley APRN SHRINK PIT SUPERVISOR Assigned PCP 09/14/23 10/12/23 [facility] [address] [place] [address] Assigned PCP 11/13/23 documented as of this encounter
--- OUTSIDE RECORDS SUMMARY | 2024-06-27 07:10 | XMS_ITS | Encounter Summary ---
Author Organization [place] Address [address] [place] [address] Care Team Providers Care Hydroponics Worker Name Role Phone Ben Cadena Primary Care Provider [phone] Angel Mccormick MD Unavailable +[phone] Chucho Clement MD Unavailable +[phone] Darion So MD Unavailable +[phone] Carolina Flanagan PA-C Unavailable + [phone] Robert Boggs PhD LP Unavailable +[phone] Milla Ramsay PA-C Unavailable +[phone] Regis Lyons MD Unavailable +[phone] Gutierrez Guthrie DO Unavailable + [phone] Erick Lagunas MD Unavailable [phone] AnaliliaAzucena APRN CONSTRUCTION TECHNICIAN Unavailable Un available AnaliliaAzucena APRN CONSTRUCTION TECHNICIAN Unavailable Un available AnaliliaAzucena APRN CONSTRUCTION TECHNICIAN Unavailable Un available Chucho Santizo MD Unavailable [phone] AnaliliaAzucena APRN CONSTRUCTION TECHNICIAN Unavailable Un available Clinic - [facility] Unavailabl e Encounter Details Date Type Department Care Team (Late st Contact Info) Description 08/04/[address] [facility] [address] 4th [place] [address] [facility] Social History Tobacco Use [...] PM CDT Legal Sex Male 2:58 AM CHAINSTITCH HEMMER Gender Identity Male 11/29/2020 12:43 PM CDT Sexual Orientation Choose not to disclose 2021 4:07 PM CHAINSTITCH HEMMER COVID-19 Exposure Response Date Recorded In the last month, have you been in contact with someone who was confirmed or suspected to have Coronavirus / COVID-19? No / Unsure 08/04/2021 8:33 AM CHAINSTITCH HEMMER documented as of this encounter Plan of Treatment Upcoming Encounters Date Type Department Care Team (Late st Contact Info) Description 09/25/2024 8:30 AM CHAINSTITCH HEMMER Office Visit [facility] [address], [address] [place] [address] Chucho Santizo MD [address] [place] [address] documented as of this encounter Visit Diagnoses Not on filedocumented in this encounter Additional Health Concerns Assessment Noted Time PHQ-9 Depression Total Score: 2 06/30/20 21 7:02 AM CHAINSTITCH HEMMER documented as of this encounter Care Teams Hydroponics Worker Relationship Specialty Start Date End Date Ben Cadena PCP - General Family Practice 09/04/19 Angel Mccormick MD Family Practice 09/04/19 Chucho Clement MD [address] [place] [address] Orthopedics 09/04/19 Darion So MD [address] [place] [address] Nephrology 12/09/20 Carolina Flanagan PA-C 420 [facility] [place] 195 [place] [address] Assigned Surgical Provider 01/16/21 08/20/21 Robert Boggs, PhD LP 420 [facility] [place] 741 [place] [address] Assigned Behavioral Health Provider 07/10/21 02/23/23 Milla Ramsay PA-C [facility], SURGERY 909 [facility] [address] [place] [address] Assigned Gastroenterology Provider 08/21/21 09/24/21 Regis Lyons MD 420 [facility] [place] 195 [place] [address] Assigned Surgical Provider 08/21/21 02/02/23 Gutierrez Guthrie DO [address], [address] [address] Orthopaedic Surgery Foot and Ankle Surgery 02/05/23 Erick Lagunas MD [address] [place] [address] Assigned Infectious Disease Provider 02/10/23 Azucena Billingsley APRN CONSTRUCTION TECHNICIAN Assigned Pain Medication Provider 06/16/23 08/15/23 Azucena Billingsley APRN CONSTRUCTION TECHNICIAN Assigned PCP 05/09/23 09/13/23 Azucena Billingsley APRN CONSTRUCTION TECHNICIAN Assigned PCP 10/13/23 11/12/23 Chucho Santizo MD 909 [place] [address] Assigned Neuroscience Provider 10/05/23 Azucena Billingsley APRN CONSTRUCTION TECHNICIAN Assigned PCP 09/14/23 10/12/23 [facility] [address] [place] [address] Assigned PCP 11/13/23 documented as of this encounter
--- OUTSIDE RECORDS SUMMARY | 2024-06-27 07:10 | XMS_ITS | Encounter Summary ---
Author Organization [place] Address [address] [place] [address] Care Team Providers Care Logging Tractor Operator Name Role Phone Ben Cadena Primary Care Provider [phone] Angel Mccormick MD Unavailable [phone] Chucho Clement MD Unavailable +[phone] Darion So MD Unavailable +[phone] Carolina Flanagan PA-C Unavailable + [phone] Robert Boggs PhD LP Unavailable +[phone] Milla Ramsay PA-C Unavailable +[phone] Regis Lyons MD Unavailable +[phone] Gutierrez Guthrie DO Unavailable + [phone] Erick Lagunas MD Unavailable AnaliliaAzucena chilel APRN MARINE CARGO SURVEYOR Unavailable Un available AnaliliaAzucena APRN MARINE CARGO SURVEYOR Unavailable Un available AnaliliaAzucena APRN MARINE CARGO SURVEYOR Unavailable Un available Chucho Santizo MD Unavailable [phone] AnaliliaAzucena APRN MARINE CARGO SURVEYOR Unavailable Un available Clinic - [facility] Unavailabl e Encounter Details Date Type Department Care Team (Late st Contact Info) Description 05/12/2021 [facility] [place] [address] [facility] 4th [place] [address], [place] [address] [address] Social History Tobacco Use Types Packs/Day Years [...] PM CDT Legal Sex Male 2:58 AM MRI SPECIALIST Gender Identity Male 11/29/2020 12:43 PM CDT Sexual Orientation Choose not to disclose 2021 4:07 PM MRI SPECIALIST documented as of this encounter Plan of Treatment Upcoming Encounters Date Type Department Care Team (Late st Contact Info) Description 09/25/2024 8:30 AM MRI SPECIALIST Office Visit [facility] Rehabilitation Clinic [address], [address] [place] [address] Chucho Santizo MD [address] [place] [address] documented as of this encounter Visit Diagnoses Not on filedocumented in this encounter Additional Health Concerns Assessment Noted Time PHQ-9 Depression Total Score: 5 01/07/20 21 8:18 AM CDT documented as of this encounter Care Teams Logging Tractor Operator Relationship Specialty Start Date End Date Ben Cadena PCP - General Family Practice 09/04/19 Angel Mccormick MD Family Practice 09/04/19 Chucho Clement MD [address] [place] [address] Orthopedics 09/04/19 Darion So MD [address] [place] [address] Nephrology 12/09/20 Carolina Flanagan PA-C 420 [facility] 195 [place] [address] Assigned Surgical Provider 01/16/21 08/20/21 Robert Boggs, PhD LP 420 [facility] 741 [place] [address] Assigned Behavioral Health Provider 07/10/21 02/23/23 Milla Ramsay PA-C [facility], SURGERY 909 [facility] [address] [place] [address] Assigned Gastroenterology Provider 08/21/21 09/24/21 Regis Lyons MD 420 [facility] 195 [place] [address] Assigned Surgical Provider 08/21/21 02/02/23 Gutierrez Guthrie DO [address], [facility] 200 [place] [address] Orthopaedic Surgery Foot and Ankle Surgery 02/05/23 Erick Lagunas MD [address] [facility] 300 [place] [address] Assigned Infectious Disease Provider 02/10/23 Azucena Billingsley APRN MARINE CARGO SURVEYOR Assigned Pain Medication Provider 06/16/23 08/15/23 Azucena Billingsley APRN MARINE CARGO SURVEYOR Assigned PCP 05/09/23 09/13/23 Azucena Billingsley APRN MARINE CARGO SURVEYOR Assigned PCP 10/13/23 11/12/23 Chucho Santizo MD 9 [place] [address] Assigned Neuroscience Provider 10/05/23 Azucena Billingsley APRN MARINE CARGO SURVEYOR Assigned PCP 09/14/23 10/12/23 [facility] [address] [place] [address] Assigned PCP 11/13/23 documented as of this encounter
--- OUTSIDE RECORDS SUMMARY | 2024-06-27 07:10 | XMS_ITS | Encounter Summary ---
Author Organization [place] Address [address] [place] [address] Care Team Providers Care C D Reactor Operator Name Role Phone Ben Cadena Primary Care Provider [phone] Angel Mccormick MD Unavailable [phone] Chucho Clement MD Unavailable +[phone] Darion So MD Unavailable [phone] Carolina Flanagan PA-C Unavailable + [phone] Robert Boggs PhD LP Unavailable +[phone] Milla Ramsay PA-C Unavailable +[phone] Regis Lyons MD Unavailable +[phone] Gutierrez Guthrie DO Unavailable + [phone] Erick Lagunas MD Unavailable AnaliliaAzucena chilel APRN DISPLAY SPECIALIST Unavailable Un available AnaliliaAzucena APRN DISPLAY SPECIALIST Unavailable Un available AnaliliaAzucena APRN DISPLAY SPECIALIST Unavailable Un available Chucho Santizo MD Unavailable [phone] AnaliliaAzucena APRN DISPLAY SPECIALIST Unavailable Un available [facility] Unavailabl e Encounter Details Date Type Department Care Team (Late st Contact Info) Description 05/12/2021 [facility] Weight Management Clinic [place] [address] [facility] 4th [place] [address], [place] [address] [address] Social History Tobacco Use Types Packs/Day Years [...] PM CDT Legal Sex Male 2:58 AM SAP MANAGER Gender Identity Male 11/29/2020 12:43 PM CDT Sexual Orientation Choose not to disclose 2021 4:07 PM SAP MANAGER documented as of this encounter Plan of Treatment Upcoming Encounters Date Type Department Care Team (Late st Contact Info) Description 09/25/2024 8:30 AM SAP MANAGER Office Visit [facility] Physical Medicine and Rehabilitation Clinic [address], [address] [place] [address] Chucho Santizo MD [address] [place] [address] documented as of this encounter Visit Diagnoses Not on filedocumented in this encounter Additional Health Concerns Assessment Noted Time PHQ-9 Depression Total Score: 5 01/07/20 21 8:18 AM CDT documented as of this encounter Care Teams C D Reactor Operator Relationship Specialty Start Date End Date Ben Cadena PCP - General Family Practice 09/04/19 Angel Mccormick MD Family Practice 09/04/19 Chucho Clement MD [address] [place] [address] Orthopedics 09/04/19 Darion So MD [address] [place] [address] Nephrology 12/09/20 Carolina Flanagan PA-C 420 [facility] 195 [place] [address] Assigned Surgical Provider 01/16/21 08/20/21 Robert Boggs, PhD LP 420 [facility] 741 [place] [address] Assigned Behavioral Health Provider 07/10/21 02/23/23 Milla Ramsay PA-C [facility], SURGERY [address] [facility] [address] [place] [address] Assigned Gastroenterology Provider 08/21/21 09/24/21 Regis Lyons MD 420 [facility] 195 [place] [address] Assigned Surgical Provider 08/21/21 02/02/23 Gutierrez Guthrie DO [address], [facility] 200 [place] [address] Orthopaedic Surgery Foot and Ankle Surgery 02/05/23 Erick Laguans MD [address] [facility] 300 [place] [address] Assigned Infectious Disease Provider 02/10/23 Azucena Billingsley APRN DISPLAY SPECIALIST Assigned Pain Medication Provider 06/16/23 08/15/23 Azucena Billingsley APRN DISPLAY SPECIALIST Assigned PCP 05/09/23 09/13/23 Azucena Billingsley APRN DISPLAY SPECIALIST Assigned PCP 10/13/23 11/12/23 Chucho Santizo MD 9 [place] [address] Assigned Neuroscience Provider 10/05/23 Azucena Billingsley APRN DISPLAY SPECIALIST Assigned PCP 09/14/23 10/12/23 [facility] [address] [place] [address] Assigned PCP 11/13/23 documented as of this encounter
--- OUTSIDE RECORDS SUMMARY | 2024-06-27 07:10 | XMS_ITS | Encounter Summary ---
Author Organization [place] Address [address] [place] [address] Care Team Providers Care Meat Processing Center Manager Name Role Phone Ben Cadena Primary Care Provider [phone] Angel Mccormick MD Unavailable [phone] Chucho Clement MD Unavailable +[phone] Darion So MD Unavailable [phone] Carolina Flanagan PA-C Unavailable + [phone] Robert Boggs PhD LP Unavailable +[phone] Milla Ramsay PA-C Unavailable +[phone] Regis Lyons MD Unavailable +[phone] Gutierrez Guthrie DO Unavailable + [phone] Erick Lagunas MD Unavailable AnaliliaAzucena APRN RAW SAMPLER Unavailable Un available AnaliliaAzucena APRN RAW SAMPLER Unavailable Un available AnaliliaAzucena chilel APRN RAW SAMPLER Unavailable Un available Chucho Santizo MD Unavailable +[phone] AnaliliaAzucena APRN RAW SAMPLER Unavailable Un available [facility] [...] PM CDT Legal Sex Male 2:58 AM SEROLOGIST Gender Identity Male 11/29/2020 12:43 PM CDT Sexual Orientation Choose not to disclose 2021 4:07 PM SEROLOGIST documented as of this encounter Plan of Treatment Upcoming Encounters Date Type Department Care Team ([facility] st Contact Info) Description 09/25/2024 8:30 AM SEROLOGIST Office Visit [facility] Physical Medicine and Rehabilitation Clinic [address], [address] [place] [address] Chucho Santizo MD [address] [place] [address] 26[address] documented as of this encounter Visit Diagnoses Not on filedocumented in this encounter Additional Health Concerns Assessment Noted Time PHQ-9 Depression Total Score: 2 06/30/20 21 7:02 AM SEROLOGIST documented as of this encounter Care Teams Meat Processing Center Manager Relationship Specialty Start Date End Date Ben Cadena PCP - General Family Practice 09/04/19 Angel Mccormick MD Family Practice 09/04/19 Chucho Clement MD [address] [place] [address] 5675[address] Orthopedics 09/04/19 Darion So MD [address] [place] [address] Nephrology 12/09/20 Carolina Flanagan PA-C 420 [facility] 195 [place], [place] [address] Assigned Surgical Provider 01/16/21 08/20/21 Robert Boggs, PhD LP 420 [facility] 741 [place], [place] [address] Assigned Behavioral Health Provider 07/10/21 02/23/23 Milla Ramsay PA-C [facility], SURGERY 909 [facility] [address] [place] [address] Assigned Gastroenterology Provider 08/21/21 09/24/21 Regis Lyons MD [address] [address] Assigned Surgical Provider 08/21/21 02/02/23 Gutierrez Guthrie DO [address], [facility] 200 [place] [address] Orthopaedic Surgery Foot and Ankle Surgery 02/05/23 Erick Lagunas MD [address] [facility] 300 [place] [address] Assigned Infectious Disease Provider 02/10/23 Azucena Billingsley APRN RAW SAMPLER Assigned Pain Medication Provider 06/16/23 08/15/23 Azucena Billingsley APRN RAW SAMPLER Assigned PCP 05/09/23 09/13/23 Azucena Billingsley APRN RAW SAMPLER Assigned PCP 10/13/23 11/12/23 Chucho Santizo MD [address] [place] [address] Assigned Neuroscience Provider 10/05/23 Azucena Billingsley APRN RAW SAMPLER Assigned PCP 09/14/23 10/12/23 [facility] [address] [place] [address] Assigned PCP 11/13/23 documented as of this encounter
--- OUTSIDE RECORDS SUMMARY | 2024-06-27 07:10 | XMS_ITS | Encounter Summary ---
Author Organization [place] Address [address] [place] [address] Care Team Providers Care Manager Wound Care Name Role Phone Ben Cadena Primary Care Provider [phone] Angel Mccormick MD Unavailable [phone] Chucho Clement MD Unavailable [phone] Darion So MD Unavailable [phone] Carolina Flanagan PA-C Unavailable + [phone] Robert Boggs PhD LP Unavailable +[phone] Milla Ramsay PA-C Unavailable +[phone] Regis Lyons MD Unavailable +[phone] Gutierrez Guthrie DO Unavailable + [phone] Erick Lagunas MD Unavailable AnaliliaAzucena APRN RETAIL WIRELESS SALES CONSULTANT Unavailable Un available AnaliliaAzucena APRN RETAIL WIRELESS SALES CONSULTANT Unavailable Un available AnaliliaAzucena APRN RETAIL WIRELESS SALES CONSULTANT Unavailable Un available Chucho Santizo MD Unavailable +[phone] AnaliliaAzucena APRN RETAIL WIRELESS SALES CONSULTANT Unavailable Un available Clinic - [facility] Unavailabl e Encounter Details Date Type Department Care Team (Late st Contact Info) Description 08/08/2021 [facility] Management Clinic [place] [address] [facility] 4th [place] [address], RN 420 [facility] 195 [place] [address] Social History Tobacco Use Types Packs/Day Years [...] PM CDT Legal Sex Male 2:58 AM HAY FARMER Gender Identity Male 11/29/2020 12:43 PM CDT Sexual Orientation Choose not to disclose 2021 4:07 PM HAY FARMER COVID-19 Exposure Response Date Recorded In the last month, have you been in contact with someone who was confirmed or suspected to have Coronavirus / COVID-19? No / Unsure 08/04/2021 8:33 AM HAY FARMER documented as of this encounter Plan of Treatment Upcoming Encounters Date Type Department Care Team (Late st Contact Info) Description 09/25/2024 8:30 AM HAY FARMER Office Visit [facility] Medicine [facility] Rehabilitation Clinic [address], [address] [place] [address] Chucho Santizo MD [address] [place] [address] documented as of this encounter Visit Diagnoses Not on filedocumented in this encounter Additional Health Concerns Assessment Noted Time PHQ-9 Depression Total Score: 2 06/30/20 21 7:02 AM HAY FARMER documented as of this encounter Care Teams Manager Wound Care Relationship Specialty Start Date End Date Ben Cadena PCP - General Family Practice 09/04/19 Angel Mccormick MD Family Practice 09/04/19 Chucho Clement MD [address] [facility] [address] [place] [address] Orthopedics 09/04/19 Darion So MD [address] [place] [address] Nephrology 12/09/20 Carolina Flanagan PA-C 420 [facility] 195 [place], [place] [address] Assigned Surgical Provider 01/16/21 08/20/21 Robert Boggs, PhD LP 420 [facility] 741 [place], [place] [address] Assigned Behavioral Health Provider 07/10/21 02/23/23 Milla Ramsay PA-C [facility], SURGERY 909 [facility] [address] [place], [place] [address] Assigned Gastroenterology Provider 08/21/21 09/24/21 Regis Lyons MD 420 [facility] 195 [place], [place] [address] Assigned Surgical Provider 08/21/21 02/02/23 Gutierrez Guthrie DO [address] Zhang [address], [address] [id number] Orthopaedic Surgery Foot and Ankle Surgery 02/05/23 Erick Lagunas MD [address] [place] [address] Assigned Infectious Disease Provider 02/10/23 Azucena Billingsley APRN RETAIL WIRELESS SALES CONSULTANT Assigned Pain Medication Provider 06/16/23 08/15/23 Azucena Billingsley APRN RETAIL WIRELESS SALES CONSULTANT Assigned PCP 05/09/23 09/13/23 Azucena Billingsley APRN RETAIL WIRELESS SALES CONSULTANT Assigned PCP 10/13/23 11/12/23 Chucho Santizo MD [address] [place] [address] Assigned Neuroscience Provider 10/05/23 Azucena Billingsley APRN RETAIL WIRELESS SALES CONSULTANT Assigned PCP 09/14/23 10/12/23 [facility] [address] [place] [address] Assigned PCP 11/13/23 documented as of this encounter
--- OUTSIDE RECORDS SUMMARY | 2024-06-27 07:10 | XMS_ITS | Encounter Summary ---
Author Organization [place] Address [address] [place] [address] Care Team Providers Care Ginger Farmer Name Role Phone Ben Cadena Primary Care Provider [phone] Angel Mccormick MD Unavailable +[phone] Chucho Clement MD Unavailable +[phone] Darion So MD Unavailable +[phone] Carolina Flanagan PA-C Unavailable + [phone] Robert Boggs PhD LP Unavailable +[phone] Milla Ramsay PA-C Unavailable +[phone] Regis Lyons MD Unavailable +[phone] Gutierrez Guthrie DO Unavailable + [phone] Erick Lagunas MD Unavailable +[phone] AnaliliaAzucena chilel APRN SLITTER SCORER Unavailable Un available AnaliliaAzucena APRN SLITTER SCORER Unavailable Un available AnaliliaAzucena APRN SLITTER SCORER Unavailable Un available Chucho Santizo MD Unavailable [phone] AnaliliaAzucena APRN SLITTER SCORER Unavailable Un available Clinic - [facility] Unavailabl e Encounter Details Date Type Department Care Team (Late st Contact Info) Description 05/12/2021 [facility] [place] [address] [facility] 4th [place] [address], BORIS [address] [address] Social History Tobacco Use Types Packs/Day Years [...] PM CDT Legal Sex Male 2:58 AM IT PORTFOLIO MANAGER Gender Identity Male 11/29/2020 12:43 PM CDT Sexual Orientation Choose not to disclose 2021 4:07 PM IT PORTFOLIO MANAGER documented as of this encounter Plan of Treatment Upcoming Encounters Date Type Department Care Team (Late st Contact Info) Description 09/25/2024 8:30 AM IT PORTFOLIO MANAGER Office Visit [facility] [address], [address] [place] [phone] Chucho Santizo MD [address] [place] [address] documented as of this encounter Visit Diagnoses Not on filedocumented in this encounter Additional Health Concerns Assessment Noted Time PHQ-9 Depression Total Score: 5 01/07/20 21 8:18 AM CDT documented as of this encounter Care Teams Ginger Farmer Relationship Specialty Start Date End Date Ben Cadena PCP - General Family Practice 09/04/19 Angel Mccormick MD Family Practice 09/04/19 Chucho Clement MD [address] [place] [address] Orthopedics 09/04/19 Darion So MD [address] [place] [phone] Nephrology 12/09/20 Carolina Flanagan PA-C 420 [facility] 195 [place] [address] Assigned Surgical Provider 01/16/21 08/20/21 Robert Boggs, PhD LP 420 [facility] 741 [place] [address] Assigned Behavioral Health Provider 07/10/21 02/23/23 Milla Ramsay PA-C [facility], SURGERY 909 [facility] [address] [place] [address] Assigned Gastroenterology Provider 08/21/21 09/24/21 Regis Lyons MD 420 [facility] 195 [place] [address] Assigned Surgical Provider 08/21/21 02/02/23 Gutierrez Guthrie DO [address], [facility] 200 [place] [address] Orthopaedic Surgery Foot and Ankle Surgery 02/05/23 Eirck Lagunas MD [address] [facility] 300 [place] [address] Assigned Infectious Disease Provider 02/10/23 Azucena Billingsley APRN SLITTER SCORER Assigned Pain Medication Provider 06/16/23 08/15/23 Azucena Billingsley APRN SLITTER SCORER Assigned PCP 05/09/23 09/13/23 Azucena Billingsley APRN SLITTER SCORER Assigned PCP 10/13/23 11/12/23 Chucho Santizo MD 9 [place] [address] Assigned Neuroscience Provider 10/05/23 Azucena Billingsley APRN SLITTER SCORER Assigned PCP 09/14/23 10/12/23 [facility] [address] [place] [address] Assigned PCP 11/13/23 documented as of this encounter
--- OUTSIDE RECORDS SUMMARY | 2024-06-27 07:10 | XMS_ITS | Encounter Summary ---
Author Organization [place] Address [address] [place] [address] Care Team Providers Care Senior Clinical Research Scientist Name Role Phone Ben Cadena Primary Care Provider [phone] Angel Mccormick MD Unavailable +[phone] Chucho Clement MD Unavailable +[phone] Chucho Clement MD Unavailable +[phone] Darion So MD Unavailable +[phone] Carolina Flanagan PA-C Unavailable + [phone] Robert Boggs PhD LP Unavailable +[phone] Milla Ramsay PA-C Unavailable +[phone] Regis Lyons MD Unavailable +[phone] Gutierrez Guthrie DO Unavailable + [phone] Erick Lagunas MD Unavailable +[phone] AnaliliaAzucena APRN SENIOR APPLICATIONS DEVELOPER Unavailable Un available AnaliliaAzucena APRN SENIOR APPLICATIONS DEVELOPER Unavailable Un available AnaliliaAzucena APRN SENIOR APPLICATIONS DEVELOPER Unavailable Un available Chucho Santizo MD Unavailable +[phone] AnaliliaAzucena chilel APRN SENIOR APPLICATIONS DEVELOPER Unavailable Un available Clinic - [facility] Unavailabl e Encounter Details Date Type Department Care Team (Late st Contact Info) Description 02/08/2021 [facility] [place] [address] [place] [address] [facility] Social History Tobacco Use Types [...] PM CDT Legal Sex Male 2:58 AM SALES SERVICE REP Gender Identity Male 11/29/2020 12:43 PM CDT Sexual Orientation Choose not to disclose 2021 4:07 PM SALES SERVICE REP documented as of this encounter Plan of Treatment Upcoming Encounters Date Type Department Care Team (Late st Contact Info) Description 09/25/2024 8:30 AM SALES SERVICE REP Office Visit [facility] Rehabilitation Clinic [address], [address] [place] [phone] Chucho Santizo MD [address] [place] [address] documented as of this encounter Visit Diagnoses Not on filedocumented in this encounter Additional Health Concerns Assessment Noted Time PHQ-9 Depression Total Score: 5 01/07/20 21 8:18 AM CDT documented as of this encounter Care Teams Senior Clinical Research Scientist Relationship Specialty Start Date End Date Ben Cadena PCP - General Family Practice 09/04/19 Angel Mccormick MD Family Practice 09/04/19 Chucho Clement MD [address] [place] [address] Orthopedics 09/04/19 Chucho Clement MD [address] [place] [address] Assigned Musculoskeletal Provider 05/14/20 03/19/21 Darion So MD [address] [place] [phone] Nephrology 12/09/20 Carolina Flanagan PA-C 420 [facility] 195 [place], [place] 5628[address] Assigned Surgical Provider 01/16/21 08/20/21 Robert Boggs, PhD LP 420 [facility] 741 [place], [place] 0[address] Assigned Behavioral Health Provider 07/10/21 02/23/23 Milla Ramsay PA-C [facility], SURGERY 909 [facility] 4TH [place] [address] Assigned Gastroenterology Provider 08/21/21 09/24/21 Regis Lyons MD 420 [facility] 195 [place], [place] 3[address] Assigned Surgical Provider 08/21/21 02/02/23 Gutierrez Guthrie DO [address], [address] [id number] Orthopaedic Surgery Foot and Ankle Surgery 02/05/23 Erick Lagunas MD [address] [address] Assigned Infectious Disease Provider 02/10/23 Azucena Billingsley APRN SENIOR APPLICATIONS DEVELOPER Assigned Pain Medication Provider 06/16/23 08/15/23 Azucena Billingsley APRN SENIOR APPLICATIONS DEVELOPER Assigned PCP 05/09/23 09/13/23 Azucena Billingsley APRN SENIOR APPLICATIONS DEVELOPER Assigned PCP 10/13/23 11/12/23 Chucho Santizo MD [address] [place] [address] Assigned Neuroscience Provider 10/05/23 Azucena Billingsley APRN SENIOR APPLICATIONS DEVELOPER Assigned PCP 09/14/23 10/12/23 [facility] [address] [place] [address] Assigned PCP 11/13/23 documented as of this encounter
--- OUTSIDE RECORDS SUMMARY | 2024-06-27 07:10 | XMS_ITS | Encounter Summary ---
Author Organization [place] Address [address] [place] [address] Care Team Providers Care Dairy Specialist Name Role Phone Ben Cadena Primary Care Provider [phone] Angel Mccormick MD Unavailable +[phone] Chucho Clement MD Unavailable +[phone] Darion So MD Unavailable +[phone] Carolina Flanagan PA-C Unavailable + [phone] Robert Boggs PhD LP Unavailable +[phone] Milla Ramsay PA-C Unavailable +[phone] Regis Lyons MD Unavailable +[phone] Gutierrez Guthrie DO Unavailable + [phone] Erick Lagunas MD Unavailable [phone] AnaliliaAzucena APRN NETWORK PLANNER Unavailable Un available AnaliliaAzucena APRN NETWORK PLANNER Unavailable Un available AnaliliaAzucena APRN NETWORK PLANNER Unavailable Un available Chucho Santizo MD Unavailable [phone] AnaliliaAzucena APRN NETWORK PLANNER Unavailable Un available Clinic - [facility] Unavailabl e Encounter Details Date Type Department Care Team (Late st Contact Info) Description 07/12/2021 [facility] Weight Management [facility] [place] [address] [facility] 4th [place] [address], RN 420 [facility] 195 [place] [address] Social History Tobacco Use Types Packs/Day Years [...] PM CDT Legal Sex Male 2:58 AM STICK WELDER Gender Identity Male 11/29/2020 12:43 PM CDT Sexual Orientation Choose not to disclose 2021 4:07 PM STICK WELDER documented as of this encounter Plan of Treatment Upcoming Encounters Date Type Department Care Team (Late st Contact Info) Description 09/25/2024 8:30 AM STICK WELDER Office Visit [facility] Physical Medicine and Rehabilitation Clinic [address], [address] [address] Chucho Santizo MD [address] [place] [address] documented as of this encounter Visit Diagnoses Not on filedocumented in this encounter Additional Health Concerns Assessment Noted Time PHQ-9 Depression Total Score: 2 06/30/20 21 7:02 AM STICK WELDER documented as of this encounter Care Teams Dairy Specialist Relationship Specialty Start Date End Date Ben Cadena PCP - General Family Practice 09/04/19 Angel Mccormick MD Family Practice 09/04/19 Chucho Clement MD [address] [place] [address] Orthopedics 09/04/19 Darion So MD [address] [place] [phone] Nephrology 12/09/20 Carolina Flanagan PA-C 420 [facility] 195 [place] [address] Assigned Surgical Provider 01/16/21 08/20/21 Robert Boggs, PhD LP 420 [facility] 741 [place] [address] Assigned Behavioral Health Provider 07/10/21 02/23/23 Milla Ramsay PA-C [facility], SURGERY 909 [facility] [address] [place] [address] Assigned Gastroenterology Provider 08/21/21 09/24/21 Regis Lyons MD 420 [facility] 195 [place], [place] [address] Assigned Surgical Provider 08/21/21 02/02/23 Gutierrez Guthrie DO [address] Zhang [address], [address] [address] Orthopaedic Surgery Foot and Ankle Surgery 02/05/23 Erick Lagunas MD [address] [facility] 300 [place] [address] Assigned Infectious Disease Provider 02/10/23 Azucena Billingsley APRN NETWORK PLANNER Assigned Pain Medication Provider 06/16/23 08/15/23 Azucena Billingsley APRN NETWORK PLANNER Assigned PCP 05/09/23 09/13/23 Azucena Billingsley APRN NETWORK PLANNER Assigned PCP 10/13/23 11/12/23 Chucho Santizo MD 909 [place] [address] Assigned Neuroscience Provider 10/05/23 Azucena Billingsley APRN NETWORK PLANNER Assigned PCP 09/14/23 10/12/23 [facility] [address] [place] [address] Assigned PCP 11/13/23 documented as of this encounter
--- OUTSIDE RECORDS SUMMARY | 2024-06-27 07:10 | XMS_ITS | Encounter Summary ---
Author Organization [place] Address [address] [place] [address] Care Team Providers Care Assistant Infant Teacher Name Role Phone Ben Cadena Primary Care Provider [phone] Angel Mccormick MD Unavailable +[phone] Chucho Clement MD Unavailable [phone] Chucho Clement MD Unavailable +[phone] Darion So MD Unavailable +[phone] Carolina Flanagan PA-C Unavailable + [phone] Guanaco Michael MD Unavailable +[phone] Regis Lyons MD Unavailable +[phone] Carolina Flanagan PA-C Unavailable +[phone] Robert Boggs PhD LP Unavailable +[phone] Milla Ramsay PA-C Unavailable [phone] Regis Lyons MD Unavailable +[phone] Gutierrez Guthrie DO Unavailable + [phone] Erick Lagunas MD Unavailable +[phone] AnaliliaAzucena APRN PARKING ENFORCEMENT MANAGER Unavailable Un available Analilia, Azucena Veras APRN PARKING ENFORCEMENT MANAGER Unavailable Un available Analilia, Azucena Veras APRN PARKING ENFORCEMENT MANAGER Unavailable Un available Chucho Santizo MD Unavailable +[phone] AnaliliaAzucena APRN PARKING ENFORCEMENT MANAGER Unavailable Un available Clinic - [facility] Unavailabl e Encounter Details Date Type Department Care Team (Late st Contact Info) Description 12/09/2020 [facility] Medical Advice [facility] Weight Management [facility] [address] 4th [place] [address] [facility] Social History Tobacco Use Types Packs/Day [...] PM CDT Legal Sex Male 2:58 AM RUBBER GOODS INSPECTOR TESTER Gender Identity Male 11/29/2020 12:43 PM CDT Sexual Orientation Choose not to disclose 2021 4:07 PM RUBBER GOODS INSPECTOR TESTER documented as of this encounter Plan of Treatment Upcoming Encounters Date Type Department Care Team (Late st Contact Info) Description 09/25/2024 8:30 AM RUBBER GOODS INSPECTOR TESTER Office Visit [facility] Rehabilitation Clinic [address], [address] [place] [phone] Chucho Santizo MD [address] [place] [address]67[address] documented as of this encounter Visit Diagnoses Not on filedocumented in this encounter Additional Health Concerns Assessment Noted Time PHQ-9 Depression Total Score: 7 09/18/19 20 7:04 AM RUBBER GOODS INSPECTOR TESTER documented as of this encounter Care Teams Assistant Infant Teacher Relationship Specialty Start Date End Date Ben Cadena PCP - General Family Practice 09/04/19 Angel Mccormick MD Family Practice 09/04/19 Chucho Clement MD [address] [place], [place] [address] [place] [address] Orthopedics 09/04/19 Chucho Clement MD [address] [place], [place] [address] [place] [address] Assigned Musculoskeletal Provider 05/14/20 03/19/21 Darion So MD [address] [place] [phone] Nephrology 12/09/20 Carolina Flanagan PA-C [address] [place] [address] [address] Assigned Surgical Provider 12/12/20 01/08/21 Guanaco Michael MD [address] [address] Assigned Surgical Provider 12/05/20 12/11/20 Regis Lyons MD [address] [place] [address] [address]67[address] Assigned Surgical Provider 01/09/21 01/15/21 Carolina Flanagan PA-C [address] [place] [address] 5289[address] Assigned Surgical Provider 01/16/21 08/20/21 Robert Boggs, PhD LP 420 [facility] 741 [place], [place] [address] Assigned Behavioral Health Provider 07/10/21 02/23/23 Milla Ramsay PA-C [facility], SURGERY 909 [facility] 4TH [place] [address] Assigned Gastroenterology Provider 08/21/21 09/24/21 Regis Lyons MD 420 [facility] 195 [place] [address] Assigned Surgical Provider 08/21/21 02/02/23 Gutierrez Guthrie DO [address] Zhang [address], [facility] 200 [place] [address] Orthopaedic Surgery Foot and Ankle Surgery 02/05/23 Erick Lagunas MD [facility] Momo Gregg [facility] 300 [place] [address] Assigned Infectious Disease Provider 02/10/23 Azucena Billingsley APRN PARKING ENFORCEMENT MANAGER Assigned Pain Medication Provider 06/16/23 08/15/23 Azucena Billingsley APRN PARKING ENFORCEMENT MANAGER Assigned PCP 05/09/23 09/13/23 Azucena Billingsley APRN PARKING ENFORCEMENT MANAGER Assigned PCP 10/13/23 11/12/23 Chucho Santizo MD [address] [place] [address] Assigned Neuroscience Provider 10/05/23 Azucena Billingsley APRN PARKING ENFORCEMENT MANAGER Assigned PCP 09/14/23 10/12/23 [facility] [address] [place] [address] Assigned PCP 11/13/23 documented as of this encounter
--- OUTSIDE RECORDS SUMMARY | 2024-06-27 07:10 | XMS_ITS | Encounter Summary ---
Author Organization [place] Address [address] [place] [address] Care Team Providers Care Home Health Physical Therapist Name Role Phone Ben Cadena Primary Care Provider [phone] Angel Mccormick MD Unavailable +[phone] Chucho Clement MD Unavailable +[phone] Chucho Clement MD Unavailable +[phone] Darion So MD Unavailable [phone] Carolina Flanagan PA-C Unavailable + [phone] Robert Boggs PhD LP Unavailable +[phone] Milla Ramsay PA-C Unavailable +[phone] Regis Lyons MD Unavailable +[phone] Gutierrez Guthrie DO Unavailable + [phone] Erick Lagunas MD Unavailable +[phone] AnaliliaAzucena APRN ELECTRONICS LEAD Unavailable Un available AnaliliaAzucena APRN ELECTRONICS LEAD Unavailable Un available AnaliliaAzucena APRN ELECTRONICS LEAD Unavailable Un available Chucho Santizo MD Unavailable +[phone] AnaliliaAzucena chilel APRN ELECTRONICS LEAD Unavailable Un available Clinic - [facility] Unavailabl e Encounter Details Date Type Department Care Team (Late st Contact Info) Description 03/10/2021 [facility] Neuropsychology [place] [address] [place] [phone] Annette Loaiza, PhD [address] [address] Social History Tobacco Use Types Packs/Day Years [...] PM CDT Legal Sex Male 2:58 AM CONSTRUCTION EQUIPMENT OPERATOR Gender Identity Male 11/29/2020 12:43 PM CDT Sexual Orientation Choose not to disclose 2021 4:07 PM CONSTRUCTION EQUIPMENT OPERATOR documented as of this encounter Plan of Treatment Upcoming Encounters Date Type Department Care Team (Late st Contact Info) Description 09/25/2024 8:30 AM CONSTRUCTION EQUIPMENT OPERATOR Office Visit [facility] Physical Medicine and Rehabilitation Clinic [address], [address] [place] [phone] Chucho Santizo MD [address] [place] [address] documented as of this encounter Visit Diagnoses Not on filedocumented in this encounter Additional Health Concerns Assessment Noted Time PHQ-9 Depression Total Score: 5 01/07/20 21 8:18 AM CDT documented as of this encounter Care Teams Home Health Physical Therapist Relationship Specialty Start Date End Date Ben Cadena PCP - General Family Practice 09/04/19 Angel Mccormick MD Family Practice 09/04/19 Chucho Clement MD [facility] [place] [address] Orthopedics 09/04/19 Chucho Clement MD [address] [place] [address] Assigned Musculoskeletal Provider 05/14/20 03/19/21 Darion So MD [address] [place] [phone] Nephrology 12/09/20 Carolina Flanagan PA-C [address] [place] [address] [facility] 195 [place] [address] Assigned Surgical Provider 01/16/21 08/20/21 Robert Boggs, PhD LP [address] [place] [address] [facility] 741 [place] [address] Assigned Behavioral Health Provider 07/10/21 02/23/23 Milla Ramsay PA-C [facility], SURGERY [address] [facility] [address] [place], [place] [address] Assigned Gastroenterology Provider 08/21/21 09/24/21 Regis Lyons MD [address] [place] [address] [facility] 195 [place] [address] Assigned Surgical Provider 08/21/21 02/02/23 Gutierrez Guthrie DO [address] Zhang [address], [facility] 200 [place] [address] Orthopaedic Surgery Foot and Ankle Surgery 02/05/23 Erick Lagunas MD 225 [facility] 300 [place] [address] Assigned Infectious Disease Provider 02/10/23 Azucena Billingsley APRN ELECTRONICS LEAD Assigned Pain Medication Provider 06/16/23 08/15/23 Azucena Billingsley APRN ELECTRONICS LEAD Assigned PCP 05/09/23 09/13/23 Azucena Billingsley APRN ELECTRONICS LEAD Assigned PCP 10/13/23 11/12/23 Chucho Santizo MD [address] [place] [address] Assigned Neuroscience Provider 10/05/23 Azucena Billingsley APRN ELECTRONICS LEAD Assigned PCP 09/14/23 10/12/23 [facility] [address] [place] [address] Assigned PCP 11/13/23 documented as of this encounter
--- OUTSIDE RECORDS SUMMARY | 2024-06-27 07:11 | XMS_ITS | Encounter Summary ---
Author Organization [facility] Address [address] [place] [address] Care Team Providers Care Chest Painting And Sealing Supervisor Name Role Phone Ben Cadena Primary Care Provider [phone] Angel Mccormick MD Unavailable +[phone] Chucho Clement MD Unavailable +[phone] Chucho Clement MD Unavailable +[phone] Darion So MD Unavailable +[phone] Carolina Flanagan PA-C Unavailable + [phone] Guanaco Michael MD Unavailable +[phone] Regis Lyons MD Unavailable +[phone] Carolina Flanagan PA-C Unavailable +[phone] Robert Boggs PhD LP Unavailable +[phone] Milla Ramsay PA-C Unavailable +[phone] Regis Lyons MD Unavailable +[phone] Gutierrez Guthrie DO Unavailable + [phone] Erick Lagunas MD Unavailable +[phone] AnaliliaAzucena APRN SCHOOL MANAGER Unavailable Un available Analilia, Azucena Veras APRN SCHOOL MANAGER Unavailable Un available Analilia, Azucena Veras APRN SCHOOL MANAGER Unavailable Un available Chucho Santizo MD Unavailable +[phone] AnaliliaAzucena APRN SCHOOL MANAGER Unavailable Un available Clinic - [facility] Unavailabl e Reason for Visit * Reason Onset Date Comments Forms 09/19/2019 Pt wanting an op inion of medical decision form emailed to him Encounter Details Date Type Department Care Team (Late st Contact Info) Description 09/19/2019 Telephone [facility] Orthopaedic [facility] [address] [facility] [address] 4th [place] [address] Chucho Clement MD [address] [place] [address] Forms (Pt wanting an opinion of medical decision form emailed to him ) Social History Tobacco Use Types Packs/Day Years Used Date Smoking Tobacco: Never Assessed PHQ-2 Answer Date Recorded PHQ-2 Score 4 09/17/2019 Sex and Gender Information Value Date Recorded Sex Assigned at Male 11/29/2020 12:43 PM CDT Legal Sex Male 2:58 AM ICE HANDLER Gender Identity Male 11/29/2020 12:43 PM CDT Sexual Orientation Choose not to disclose 2021 4:07 PM ICE HANDLER documented as of this encounter Miscellaneous Notes * Telephone Encounter - Nitza Barr - 09/19/2019 1:17 PM CST [facility] Center Phone Message May a detailed message [...] Center ([facility]): [facility] Travel Screening: Not Applicable HANDLER documented in this encounter Plan of Treatment Upcoming Encounters Date Type Department Care Team (Late Contact Info) Description 09/25/2024 8:30 AM ICE HANDLER Office Visit [facility] [place] [address], [address] [place] [address] Chucho Santizo MD [address] [place] [address] documented as of this encounter Visit Diagnoses Not on filedocumented in this encounter Additional Health Concerns Assessment Noted Time PHQ-9 Depression Total Score: 7 09/18/19 20 7:04 AM ICE HANDLER documented as of this encounter Care Teams Chest Painting And Sealing Supervisor Relationship Specialty Start Date End Date Cadena Ben Mango PCP - General Family Practice 09/04/19 Angel Mccormick MD Family Practice 09/04/19 Chucho Clement MD [facility] [address] [address] Orthopedics 09/04/19 Chucho Clement MD [facility] [address] [address] Assigned Musculoskeletal Provider 05/14/20 03/19/21 Darion So MD [address] [place] [phone] Nephrology 12/09/20 Carolina Flanagan PA-C [address] [place] [address] 929355 Assigned Surgical Provider 12/12/20 01/08/21 Guanaco Michael MD [address] [place] [address] 992625 Assigned Surgical Provider 12/05/20 12/11/20 Regis Lyons MD [address] [facility] 195 [place] [address] Assigned Surgical Provider 01/09/21 01/15/21 Carolina Flanagan PA-C [address] [facility] 195 [place] [address] Assigned Surgical Provider 01/16/21 08/20/21 Robert Boggs, PhD LP [address] [facility] 741 [place] [address] Assigned Behavioral Health Provider 07/10/21 02/23/23 Milla Ramsay PA-C [facility], SURGERY [address] [facility] [address] [place] [address] Assigned Gastroenterology Provider 08/21/21 09/24/21 Regis Lyons MD [address] [facility] 195 [place] [address] Assigned Surgical Provider 08/21/21 02/02/23 Gutierrez Guthrie DO [address], [facility] 200 [place] [address] Orthopaedic Surgery Foot and Ankle Surgery 02/05/23 Erick Lagunas MD [facility] Momo Gregg [facility] 300 [place] [address] Assigned Infectious Disease Provider 02/10/23 Azucena Billingsley APRN SCHOOL MANAGER Assigned Pain Medication Provider 06/16/23 08/15/23 Azucena Billingsley APRN SCHOOL MANAGER Assigned PCP 05/09/23 09/13/23 Azucena Billingsley APRN SCHOOL MANAGER Assigned PCP 10/13/23 11/12/23 Chucho Santizo MD [address] [place] [address] Assigned Neuroscience Provider 10/05/23 Azucena Billingsley APRN SCHOOL MANAGER Assigned PCP 09/14/23 10/12/23 [facility] [address] [place] [address] Assigned PCP 11/13/23 documented as of this encounter
--- OUTSIDE RECORDS SUMMARY | 2024-06-27 07:11 | XMS_ITS | Encounter Summary ---
Author Organization [facility] Address [address] [place] [address] Care Team Providers Care Service Rig Operator Name Role Phone Ben Cadena Primary Care Provider [phone] Angel Mccormick MD Unavailable +[phone] Chucho Clement MD Unavailable +[phone] Chucho Clement MD Unavailable +[phone] Darion So MD Unavailable +[phone] Carolina Flanagan PA-C Unavailable + [phone] Guanaco Michael MD Unavailable +[phone] Regis Lyons MD Unavailable +[phone] Carolina Flanagan PA-C Unavailable +[phone] Robert Boggs PhD LP Unavailable +[phone] Milla Ramsay PA-C Unavailable +[phone] Regis Lyons MD Unavailable +[phone] Gutierrez Guthrie DO Unavailable + [phone] Erick Lagunas MD Unavailable +[phone] AnaliliaAzucena APRN IVORY CARVER Unavailable Un available Analilia, Azucena Veras APRN IVORY CARVER Unavailable Un available Analilia, Azucena Veras APRN IVORY CARVER Unavailable Un available Chucho Santizo MD Unavailable +[phone] AnaliliaAzucena APRN IVORY CARVER Unavailable Un available Clinic - [facility] Unavailabl e Encounter Details Date Type Department Care Team (Late st Contact Info) Description 12/07/2020 MyC Medical Advice [facility] [address] 4th [place] [address] Carolina Flanagan PA-C [address] [facility] 195 [place] [address] Social History Tobacco Use Types [...] PM CDT Legal Sex Male 2:58 AM SHUT OFF WORKER Gender Identity Male 11/29/2020 12:43 PM CDT Sexual Orientation Choose not to disclose 2021 4:07 PM SHUT OFF WORKER documented as of this encounter Plan of Treatment Upcoming Encounters Date Type Department Care Team (Late st Contact Info) Description 09/25/2024 8:30 AM SHUT OFF WORKER Office Visit [facility] [address], [address] [place] [address] Chucho Santizo MD [address] [place] [address] documented as of this encounter Visit Diagnoses Not on filedocumented in this encounter Additional Health Concerns Assessment Noted Time PHQ-9 Depression Total Score: 7 02/27/20 20 7:04 AM SHUT OFF WORKER documented as of this encounter Care Teams Service Rig Operator Relationship Specialty Start Date End Date Ben Cadena PCP - General Family Practice 09/04/19 Angel Mccormick MD Family Practice 09/04/19 Chucho Clement MD [address] [place] [address] Orthopedics 09/04/19 hCucho Clement MD [address] [place] [address] Assigned Musculoskeletal Provider 05/14/20 03/19/21 Darion So MD [address] [place] [address] Nephrology 12/09/20 Carolina Flanagan PA-C [address] [place] [address] Assigned Surgical Provider 12/12/20 01/08/21 Guanaco Michael MD [address] [place] [address] Assigned Surgical Provider 12/05/20 12/11/20 Regis Lyons MD [address] [place] [address] Assigned Surgical Provider 01/09/21 01/15/21 Carolina Flanagan PA-C [address] [facility] 195 [place] [address] Assigned Surgical Provider 01/16/21 08/20/21 Robert Boggs, PhD LP 420 [facility] 741 [place] [address] Assigned Behavioral Health Provider 07/10/21 02/23/23 Milla Ramsay PA-C [facility], SURGERY [address] [facility] [address] [place], [place] [address] Assigned Gastroenterology Provider 08/21/21 09/24/21 Regis Lyons MD 420 [facility] 195 [place], [place] [address] Assigned Surgical Provider 08/21/21 02/02/23 Gutierrez Guthrie DO [address], [facility] 200 [place] [address] Orthopaedic Surgery Foot and Ankle Surgery 02/05/23 Erick Lagunas MD [facility] Momo Gregg [facility] 300 [place], [place] [address] Assigned Infectious Disease Provider 02/10/23 Azucena Billingsley APRN IVORY CARVER Assigned Pain Medication Provider 06/16/23 08/15/23 Azucena Billingsley APRN IVORY CARVER Assigned PCP 05/09/23 09/13/23 Azucena Billingsley APRN IVORY CARVER Assigned PCP 10/13/23 11/12/23 Chucho Santizo MD [address] [place] [address] Assigned Neuroscience Provider 10/05/23 Azucena Billingsley APRN IVORY CARVER Assigned PCP 09/14/23 10/12/23 [facility] [address] [place], [place] 97[address] Assigned PCP 11/13/23 documented as of this encounter
--- OUTSIDE RECORDS SUMMARY | 2024-06-27 07:11 | XMS_ITS | Encounter Summary ---
Author Organization [facility] Address [address] [place] [address] Care Team Providers Care Traveling Nurse Name Role Phone Ben Cadena Primary Care Provider [phone] Angel Mccormick MD Unavailable +[phone] Chucho Clement MD Unavailable [phone] Chucho Clement MD Unavailable +[phone] Darion So MD Unavailable +[phone] Carolina Flanagan PA-C Unavailable + [phone] Guanaco Michael MD Unavailable +[phone] Regis Lyons MD Unavailable +[phone] Carolina Flanagan PA-C Unavailable +[phone] Robert Boggs PhD LP Unavailable +[phone] Milla Ramsay PA-C Unavailable +[phone] Regis Lyons MD Unavailable +[phone] Gutierrez Guthrie DO Unavailable + [phone] Erick Lagunas MD Unavailable +[phone] AnaliliaAzucena APRN FARM MECHANIC APPRENTICE Unavailable Un available Analilia, Azucena Veras APRN FARM MECHANIC APPRENTICE Unavailable Un available Analilia, Azucena Veras APRN FARM MECHANIC APPRENTICE Unavailable Un available Chucho Santizo MD Unavailable [phone] AnaliliaAzucena APRN FARM MECHANIC APPRENTICE Unavailable Un available Clinic - [facility] Unavailabl e Encounter Details Date Type Department Care Team (Late st Contact Info) Description 12/07/2020 MyC Medical Advice [facility] [address] 4th [place] [address] Carolina Flanagan PA-C [address] [facility] 195 [place] [address] Social History Tobacco Use Types [...] Legal Sex Male 2:58 AM SALES SERVICE COORDINATOR Gender Identity Male 11/29/2020 12:43 PM CDT Sexual Orientation Choose not to disclose 2021 4:07 PM SALES SERVICE COORDINATOR documented as of this encounter Plan of Treatment Upcoming Encounters Date Type Department Care Team (Late st Contact Info) Description 09/25/2024 8:30 AM SALES SERVICE COORDINATOR Office Visit [facility] [address], [address] [place] [address] Chucho Santizo MD [address] [place] [address] documented as of this encounter Visit Diagnoses Not on filedocumented in this encounter Additional Health Concerns Assessment Noted Time PHQ-9 Depression Total Score: 7 02/27/20 20 7:04 AM SALES SERVICE COORDINATOR documented as of this encounter Care Teams Traveling Nurse Relationship Specialty Start Date End Date Ben Cadena PCP - General Family Practice 09/04/19 Angel Mccormick MD Family Practice 09/04/19 Chucho Clement MD [address] [place] [address] Orthopedics 09/04/19 Chucho Clement MD [address] [place] [address] Assigned Musculoskeletal Provider 05/14/20 03/19/21 Darion So MD [address] [place] [address] Nephrology 12/09/20 Carolina Flanagan PA-C [address] [place] [address] Assigned Surgical Provider 12/12/20 01/08/21 Guanaco Michael MD [address] [place] [address] Assigned Surgical Provider 12/05/20 12/11/20 Regis Lyons MD [address] [place] [address] Assigned Surgical Provider 01/09/21 01/15/21 Carolina Flanagan PA-C 420 [facility] 195 [place] [address] Assigned Surgical Provider 01/16/21 08/20/21 Robert Boggs, PhD LP 420 [facility] 741 [place] [address] Assigned Behavioral Health Provider 07/10/21 02/23/23 Milla Ramsay PA-C [facility], SURGERY 909 [facility] [address] [place], [place] 6[address] Assigned Gastroenterology Provider 08/21/21 09/24/21 Regis Lyons MD 420 [facility] 195 [place], [place] 560435 Assigned Surgical Provider 08/21/21 02/02/23 Gutierrez Guthrie DO [address], [facility] 200 [place] [address] Orthopaedic Surgery Foot and Ankle Surgery 02/05/23 Erick Lagunas MD [facility] Momo Gregg [facility] 300 [place], [place] [address] Assigned Infectious Disease Provider 02/10/23 Azucena Billingsley APRN FARM MECHANIC APPRENTICE Assigned Pain Medication Provider 06/16/23 08/15/23 Azucena Billingsley APRN FARM MECHANIC APPRENTICE Assigned PCP 05/09/23 09/13/23 Azucena Billingsley APRN FARM MECHANIC APPRENTICE Assigned PCP 10/13/23 11/12/23 Chucho Santizo MD [address] [place] [address] Assigned Neuroscience Provider 10/05/23 Azucena Billingsley APRN FARM MECHANIC APPRENTICE Assigned PCP 09/14/23 10/12/23 [facility] [address] [address] [place], [place] [address] Assigned PCP 11/13/23 documented as of this encounter
--- OUTSIDE RECORDS SUMMARY | 2024-06-27 07:11 | XMS_ITS | Clinical Summary ---
Author Organization [facility] Address [address] [address] Phone Care Team Providers Care Typewriter Repairer Name Role Phone Unavailable Primary Care Provider Unavailabl e Allergies Active Allergy Reactions Criticality Noted Date Comments Allopurinol RASH Medium 09/13/2019 Medications Insulin Aspart (NOVOLOG FLEXPEN SC) Inject under the skin. Active Insulin Degludec (TRESIBA FLEXTOUCH SC) Inject under the skin. Active Semaglutide (OZEMPIC, 1 MG/DOSE, SC) Inject under the skin. Active unknown medicationIndic ations:Long acting insulin not levemir or lantus Indications: Long acting insulin not levemir or lantus Active Social History Tobacco Use Types Packs/Day Years Used Date Smoking Tobacco: Former Smokeless Tobacco: Never Alcohol Use Standard Drinks/Week Comments Never 0 (1 standard drink = 0.6 oz pur e alcohol) [facility] Custom IPV Answer Date Recorded Do you feel UNSAFE in any of your personal relationships with your family members or any other acquaintances? No 2023 Sex and Gender Information Value Date Recorded Sex Assigned at Male 08/13/2020 10:12 PM FLOATMAN Legal Sex Male 2:03 PM FLOATMAN Gender Identity Male 08/13/2020 10:12 PM FLOATMAN Sexual Orientation Not on file Obstetrics History Last Filed Vital Signs Vital Sign Reading Time Taken Comments Blood Pressure 104/59 02/23/2024 12:30 PM CDT Pulse 85 02/23/2024 12:30 PM CDT Temperature 36.8 C (98.2 F) 02/23/2024 12:30 PM CDT Respiratory Rate 18 02/23/2024 12:30 PM CDT Oxygen Saturation 91% 02/23/2024 12:30 PM CDT Inhaled Oxygen Concentration - - Weight 126.1 kg (278 lb) 02/23/2024 12:30 PM CDT Height 167.6 cm (5' 6) 01/13/2023 7:53 AM CDT Body Mass Index 44.87 01/13/2023 7:53 AM CDT Plan of Treatment Not on file Insurance [facility]
--- OUTSIDE RECORDS SUMMARY | 2024-06-27 07:11 | XMS_ITS | Encounter Summary ---
Author Organization [facility] Address [address] [place] [address] Care Team Providers Care Caregivers Homecare Name Role Phone Ben Cadena Primary Care Provider [phone] Angel Mccormick MD Unavailable +[phone] Chucho Clement MD Unavailable [phone] Chucho Clement MD Unavailable +[phone] Darion So MD Unavailable [phone] Carolina Flanagan PA-C Unavailable + [phone] Guanaco Michael MD Unavailable +[phone] Regis Lyons MD Unavailable +[phone] Carolina Flanagan PA-C Unavailable +[phone] Robert Boggs PhD LP Unavailable +[phone] Milla Ramsay PA-C Unavailable +[phone] Regis Lyons MD Unavailable +[phone] Gutierrez Guthrie DO Unavailable + [phone] Erick Lagunas MD Unavailable +[phone] AnaliliaAzucena APRN GROCERY PACKER Unavailable Un available Analilia, Azucena Veras APRN GROCERY PACKER Unavailable Un available Analilia, Azucena Veras APRN GROCERY PACKER Unavailable Un available Chucho Santizo MD Unavailable [phone] AnaliliaAzucena APRN GROCERY PACKER Unavailable Un available Clinic - [facility] Unavailabl e Encounter Details Date Type Department Care Team (Late st Contact Info) Description 12/07/2020 MyC Medical Advice [facility] [address] 4th [place] [address] Carolina Flanagan PA-C [address] [facility] 195 [place] [address] Social History Tobacco Use Types [...] PM CDT Legal Sex Male 2:58 AM LADLE LINER Gender Identity Male 11/29/2020 12:43 PM CDT Sexual Orientation Choose not to disclose 2021 4:07 PM LADLE LINER documented as of this encounter Plan of Treatment Upcoming Encounters Date Type Department Care Team (Late st Contact Info) Description 09/25/2024 8:30 AM LADLE LINER Office Visit [facility] [address], [address] [place] [address] Chucho Santizo MD [address] [place] [address] documented as of this encounter Visit Diagnoses Not on filedocumented in this encounter Additional Health Concerns Assessment Noted Time PHQ-9 Depression Total Score: 7 02/27/20 20 7:04 AM LADLE LINER documented as of this encounter Care Teams Caregivers Homecare Relationship Specialty Start Date End Date Ben Cadena PCP - General Family Practice 09/04/19 Angel Mccormick MD Family Practice 09/04/19 Chucho Clement MD [address] [place] [address] Orthopedics 09/04/19 Chucho Clement MD [address] [place] [address] Assigned Musculoskeletal Provider 05/14/20 03/19/21 Darion So MD [address] [place] [address] Nephrology 12/09/20 Carolina Flanagan PA-C [address] [place] [address] Assigned Surgical Provider 12/12/20 01/08/21 Guanaco Michael MD [address] [place] [address] Assigned Surgical Provider 12/05/20 12/11/20 Regis Lyons MD [address] [place] [address] Assigned Surgical Provider 01/09/21 01/15/21 Carolina Flanagan PA-C 420 [facility] 195 [place] [address] Assigned Surgical Provider 01/16/21 08/20/21 Robert Boggs, PhD LP 420 [facility] 741 [place] [address] Assigned Behavioral Health Provider 07/10/21 02/23/23 Milla Ramsay PA-C [facility], SURGERY 909 [facility] [address] [place], [place] [address] Assigned Gastroenterology Provider 08/21/21 09/24/21 Regis Lyons MD 420 [facility] 195 [place], [place] [address] Assigned Surgical Provider 08/21/21 02/02/23 Gutierrez Guthrie DO [address], [facility] 200 [place] [address] Orthopaedic Surgery Foot and Ankle Surgery 02/05/23 Erick Lagunas MD [facility] Momo Gregg [facility] 300 [place], [place] [address] Assigned Infectious Disease Provider 02/10/23 Azucena Billingsley APRN GROCERY PACKER Assigned Pain Medication Provider 06/16/23 08/15/23 Azucena Billingsley APRN GROCERY PACKER Assigned PCP 05/09/23 09/13/23 Azucena Billingsley APRN GROCERY PACKER Assigned PCP 10/13/23 11/12/23 Chucho Santizo MD [address] [place] [address] Assigned Neuroscience Provider 10/05/23 Azucena Billingsley APRN GROCERY PACKER Assigned PCP 09/14/23 10/12/23 [facility] [address] [address] [place], [place] [address] Assigned PCP 11/13/23 documented as of this encounter
--- OUTSIDE RECORDS SUMMARY | 2024-06-27 07:11 | XMS_ITS | Encounter Summary ---
Author Organization [place] Address [address] [place] [address]83 Care Team Providers Care Night Warehouse Manager Name Role Phone Ben Cadena Primary Care Provider [phone] Angel Mccormick MD Unavailable +[phone] Chucho Clement MD Unavailable +[phone] Chucho Clement MD Unavailable +[phone] Darion So MD Unavailable +[phone] Carolina Flanagan PA-C Unavailable + [phone] Guanaco Michael MD Unavailable +[phone] Regis Lyons MD Unavailable +[phone] Carolina Flanagan PA-C Unavailable +[phone] Robert Boggs PhD LP Unavailable +[phone] Milla Ramsay PA-C Unavailable +[phone] Regis Lyons MD Unavailable +[phone] Gutierrez Guthrie DO Unavailable + [phone] Erick Lagunas MD Unavailable +[phone] AnaliliaAzucena APRN HOUSEHOLD APPLIANCE INSTALLER Unavailable Un available Analilia, Azucena Veras APRN HOUSEHOLD APPLIANCE INSTALLER Unavailable Un available Analilia, Azucena Veras APRN HOUSEHOLD APPLIANCE INSTALLER Unavailable Un available Chucho Santizo MD Unavailable [phone] AnaliliaAzucena APRN HOUSEHOLD APPLIANCE INSTALLER Unavailable Un available Clinic - [facility] Unavailabl e Encounter Details Date Type Department Care Team (Late st Contact Info) Description 12/07/2020 MyC Medical Advice [facility] [address] 4th [place] [address] Carolina Flanagan PA-C [address] [facility] 195 [place] [address] Social History Tobacco Use Types [...] PM CDT Legal Sex Male 2:58 AM PENOLOGY PROFESSOR Gender Identity Male 11/29/2020 12:43 PM CDT Sexual Orientation Choose not to disclose 2021 4:07 PM PENOLOGY PROFESSOR documented as of this encounter Plan of Treatment Upcoming Encounters Date Type Department Care Team (Late st Contact Info) Description 09/25/2024 8:30 AM PENOLOGY PROFESSOR Office Visit [facility] [address], [address] [place] [address] Chucho Santizo MD [address] [place] [address] 807895 documented as of this encounter Visit Diagnoses Not on filedocumented in this encounter Additional Health Concerns Assessment Noted Time PHQ-9 Depression Total Score: 7 02/27/20 20 7:04 AM PENOLOGY PROFESSOR documented as of this encounter Care Teams Night Warehouse Manager Relationship Specialty Start Date End Date Ben Cadena PCP - General Family Practice 09/04/19 Angel Mccormick MD Family Practice 09/04/19 Chucho Clement MD [address] [place] [address] Orthopedics 09/04/19 Chucho Clement MD [address] [place] [address] 92590 Assigned Musculoskeletal Provider 05/14/20 03/19/21 Darion So MD [address] [place] [phone] Nephrology 12/09/20 Carolina Flanagan PA-C [address] [place] [address] 14206 Assigned Surgical Provider 12/12/20 01/08/21 Guanaco Michael MD [address] [place] [address] 17596 Assigned Surgical Provider 12/05/20 12/11/20 Regis Lyons MD [address] [place] [address] 29451 Assigned Surgical Provider 01/09/21 01/15/21 Carolina Flanagan PA-C [address] [facility] 195 [place] [address] Assigned Surgical Provider 01/16/21 08/20/21 Robert Boggs, PhD LP [address] [facility] 741 [place] [address] Assigned Behavioral Health Provider 07/10/21 02/23/23 Milla Ramsay PA-C [facility]ERY 909 [facility] [address] [place], [place] 806825 Assigned Gastroenterology Provider 08/21/21 09/24/21 Regis Lyons MD [address] [facility] 195 [place], [place] 782985 Assigned Surgical Provider 08/21/21 02/02/23 Gutierrez Guthrie DO [address], [facility] 200 [place] [address] Orthopaedic Surgery Foot and Ankle Surgery 02/05/23 Erick Lagunas MD [facility] Momo Gregg [facility] 300 [place], [place] [phone] Assigned Infectious Disease Provider 02/10/23 Azucena Billingsley APRN HOUSEHOLD APPLIANCE INSTALLER Assigned Pain Medication Provider 06/16/23 08/15/23 Azucena Billingsley APRN HOUSEHOLD APPLIANCE INSTALLER Assigned PCP 05/09/23 09/13/23 Azucena Billingsley APRN HOUSEHOLD APPLIANCE INSTALLER Assigned PCP 10/13/23 11/12/23 Chucho Santizo MD [address] [place] [address]673 Assigned Neuroscience Provider 10/05/23 Azucena Billingsley APRN HOUSEHOLD APPLIANCE INSTALLER Assigned PCP 09/14/23 10/12/23 [facility] [address] [address] [place], [place] 1527244 Assigned PCP 11/13/23 documented as of this encounter
--- OUTSIDE RECORDS SUMMARY | 2024-06-27 07:11 | XMS_ITS | Encounter Summary ---
Author Organization [place] Address [address] [place] [address] Care Team Providers Care Colors Custodian Name Role Phone Ben Cadena Primary Care Provider [phone] Angel Mccormick MD Unavailable +[phone] Chucho Clement MD Unavailable [phone] Chucho Clement MD Unavailable +[phone] Darion So MD Unavailable [phone] Carolina Flanagan PA-C Unavailable + [phone] Guanaco Michael MD Unavailable +[phone] Regis Lyons MD Unavailable +[phone] Carolina Flanagan PA-C Unavailable +[phone] Robert Boggs PhD LP Unavailable +[phone] Milla Ramsay PA-C Unavailable +[phone] Regis Lyons MD Unavailable +[phone] Gutierrez Guthrie DO Unavailable + [phone] Erick Lagunas MD Unavailable +[phone] AnaliliaAzucena APRN TOWER DRAGLINE OPERATOR Unavailable Un available Analilia, Azucena Veras APRN TOWER DRAGLINE OPERATOR Unavailable Un available Analilia, Azucena Veras APRN TOWER DRAGLINE OPERATOR Unavailable Un available Chucho Santizo MD Unavailable [phone] AnaliliaAzucena APRN TOWER DRAGLINE OPERATOR Unavailable Un available Clinic - [facility] Unavailabl e Encounter Details Date Type Department Care Team (Late st Contact Info) Description 12/07/2020 MyC Medical Advice [facility] [address] 4th [place] [address] Carolina Flanagan PA-C [address] [facility] 195 [place] [address] Social History Tobacco Use Types [...] PM CDT Legal Sex Male 2:58 AM WEBBING TACKER Gender Identity Male 11/29/2020 12:43 PM CDT Sexual Orientation Choose not to disclose 2021 4:07 PM WEBBING TACKER documented as of this encounter Plan of Treatment Upcoming Encounters Date Type Department Care Team (Late st Contact Info) Description 09/25/2024 8:30 AM WEBBING TACKER Office Visit [facility] [address], [address] [place] [address] Chucho Santizo MD [address] [place] [address] 721265 documented as of this encounter Visit Diagnoses Not on filedocumented in this encounter Additional Health Concerns Assessment Noted Time PHQ-9 Depression Total Score: 7 02/27/20 20 7:04 AM WEBBING TACKER documented as of this encounter Care Teams Colors Custodian Relationship Specialty Start Date End Date Ben Cadena PCP - General Family Practice 09/04/19 Angel Mccormick MD Family Practice 09/04/19 Chucho Clement MD [address] [place] [address] Orthopedics 09/04/19 Chucho Clement MD [address] [place] [address] 8[address] Assigned Musculoskeletal Provider 05/14/20 03/19/21 Darion So MD [address] [place] [phone] Nephrology 12/09/20 Carolina Flanagan PA-C [address] [place] [address]353 Assigned Surgical Provider 12/12/20 01/08/21 Guanaco Michael MD [address] [place] [address] 73663 Assigned Surgical Provider 12/05/20 12/11/20 Regis Lyons MD [address] [place] [address] 98260 Assigned Surgical Provider 01/09/21 01/15/21 Carolina Flanagan PA-C 420 [facility] 195 [place] [address] Assigned Surgical Provider 01/16/21 08/20/21 Robert Boggs, PhD LP 420 [facility] 741 [place] [address] Assigned Behavioral Health Provider 07/10/21 02/23/23 Milla Ramsay PA-C [facility], SURGERY 909 [facility] [address] [place], [place] 521655 Assigned Gastroenterology Provider 08/21/21 09/24/21 Regis Lyons MD 420 [facility] 195 [place], [place] 617925 Assigned Surgical Provider 08/21/21 02/02/23 Gutierrez Guthrie DO [address], [facility] 200 [place] [address] Orthopaedic Surgery Foot and Ankle Surgery 02/05/23 Erick Lagunas MD [facility] Momo Gregg [facility] 300 [place], [place] 93269[address] Assigned Infectious Disease Provider 02/10/23 Azucena Billingsley APRN TOWER DRAGLINE OPERATOR Assigned Pain Medication Provider 06/16/23 08/15/23 Azucena Billingsley APRN TOWER DRAGLINE OPERATOR Assigned PCP 05/09/23 09/13/23 Azucena Billingsley APRN TOWER DRAGLINE OPERATOR Assigned PCP 10/13/23 11/12/23 Chucho Santizo MD [address] [place] [address]303 Assigned Neuroscience Provider 10/05/23 Azucena Billingsley APRN TOWER DRAGLINE OPERATOR Assigned PCP 09/14/23 10/12/23 [facility] [address] [place], [place] 2228244 Assigned PCP 11/13/23 documented as of this encounter
--- OUTSIDE RECORDS SUMMARY | 2024-06-27 07:11 | XMS_ITS | Encounter Summary ---
Author Organization [place] Address [address] [place] [address] Care Team Providers Care Chemical Checker Name Role Phone Ben Cadena Primary Care Provider [phone] Angel Mccormick MD Unavailable +[phone] Chucho Clement MD Unavailable [phone] Chucho Clement MD Unavailable +[phone] Darion So MD Unavailable [phone] Carolina Flanagan PA-C Unavailable + [phone] Guanaco Michael MD Unavailable +[phone] Regis Lyons MD Unavailable +[phone] Carolina Flanagan PA-C Unavailable +[phone] Robert Boggs PhD LP Unavailable +[phone] Milla Ramsay PA-C Unavailable +[phone] Regis Lyons MD Unavailable +[phone] Gutierrez Guthrie DO Unavailable + [phone] Erick Lagunas MD Unavailable +[phone] AnaliliaAzucena APRN SENIOR NET APPLICATION DEVELOPER Unavailable Un available Analilia, Azucena Veras APRN SENIOR NET APPLICATION DEVELOPER Unavailable Un available Analilia, Azucena Veras APRN SENIOR NET APPLICATION DEVELOPER Unavailable Un available Chucho Santizo MD Unavailable [phone] AnaliliaAzucena APRN SENIOR NET APPLICATION DEVELOPER Unavailable Un available Clinic - [facility] Unavailabl e Encounter Details Date Type Department Care Team (Late st Contact Info) Description 12/07/2020 MyC Medical Advice [facility] [address] 4th [place] [address] Carolina Flanagan PA-C [address] [facility] 195 [place] [address] Social History Tobacco Use Types [...] PM CDT Legal Sex Male 2:58 AM LAND LEASING EXAMINER Gender Identity Male 11/29/2020 12:43 PM CDT Sexual Orientation Choose not to disclose 2021 4:07 PM LAND LEASING EXAMINER documented as of this encounter Plan of Treatment Upcoming Encounters Date Type Department Care Team (Late st Contact Info) Description 09/25/2024 8:30 AM LAND LEASING EXAMINER Office Visit [facility] [address], [address] [place] [address] Chucho Santizo MD [address] [place] [address] [id number] documented as of this encounter Visit Diagnoses Not on filedocumented in this encounter Additional Health Concerns Assessment Noted Time PHQ-9 Depression Total Score: 7 02/27/20 20 7:04 AM LAND LEASING EXAMINER documented as of this encounter Care Teams Chemical Checker Relationship Specialty Start Date End Date Ben Cadena PCP - General Family Practice 09/04/19 Angel Mccormick MD Family Practice 09/04/19 Chucho Clement MD [address] [place] [address] Orthopedics 09/04/19 Chucho Clement MD [address] [place] [address] 23893 Assigned Musculoskeletal Provider 05/14/20 03/19/21 Darion So MD [address] [place] [phone] Nephrology 12/09/20 Carolina Flanagan PA-C [address] [place] [address] 30935 Assigned Surgical Provider 12/12/20 01/08/21 Guanaco Michael MD [address] [place] [address] 42905 Assigned Surgical Provider 12/05/20 12/11/20 Regis Lyons MD [address] [place] [address] 90176 Assigned Surgical Provider 01/09/21 01/15/21 Carolina Flanagan PA-C 420 [facility] 195 [place] [address] Assigned Surgical Provider 01/16/21 08/20/21 Robert Boggs, PhD LP 420 [facility] 741 [place] [address] Assigned Behavioral Health Provider 07/10/21 02/23/23 Milla Ramsay PA-C [facility], SURGERY 909 [facility] [address] [place], [place] 356355 Assigned Gastroenterology Provider 08/21/21 09/24/21 Regis Lyons MD 420 [facility] 195 [place], [place] 9969[address] Assigned Surgical Provider 08/21/21 02/02/23 Gutierrez Guthrie DO [address] Zhang [address], [facility] 200 [place] [address] Orthopaedic Surgery Foot and Ankle Surgery 02/05/23 Erick Lagunas MD [facility] Momo Gregg [facility] 300 [place], [place] [phone] Assigned Infectious Disease Provider 02/10/23 Azucena Billingsley APRN SENIOR NET APPLICATION DEVELOPER Assigned Pain Medication Provider 06/16/23 08/15/23 Azucena Billingsley APRN SENIOR NET APPLICATION DEVELOPER Assigned PCP 05/09/23 09/13/23 Azucena Billingsley APRN SENIOR NET APPLICATION DEVELOPER Assigned PCP 10/13/23 11/12/23 Chucho Santizo MD [address] [place] [address]16 Assigned Neuroscience Provider 10/05/23 Azucena Billingsley APRN SENIOR NET APPLICATION DEVELOPER Assigned PCP 09/14/23 10/12/23 [facility] [address] [place], [place] 39060[address] Assigned PCP 11/13/23 documented as of this encounter
--- OUTSIDE RECORDS SUMMARY | 2024-06-27 07:11 | XMS_ITS | Encounter Summary ---
Author Organization [place] Address [address] [place] [address] Care Team Providers Care Videotape Sales Representative Name Role Phone Ben Cadena Primary Care Provider [phone] Angel Mccormick MD Unavailable +[phone] Chucho Clement MD Unavailable [phone] Chucho Clement MD Unavailable +[phone] Darion So MD Unavailable [phone] Carolina Flanagan PA-C Unavailable + [phone] Guanaco Michael MD Unavailable +[phone] Regis Lyons MD Unavailable +[phone] Carolina Flanagan PA-C Unavailable +[phone] Robert Boggs PhD LP Unavailable +[phone] Milla Ramsay PA-C Unavailable +[phone] Regis Lyons MD Unavailable +[phone] Gutierrez Guthrie DO Unavailable + [phone] Erick Lagunas MD Unavailable +[phone] AnaliliaAzucena APRN BRAZER ASSEMBLER Unavailable Un available Analilia, Azucena Veras APRN BRAZER ASSEMBLER Unavailable Un available Analilia, Azucena Veras APRN BRAZER ASSEMBLER Unavailable Un available Chucho Santizo MD Unavailable [phone] AnaliliaAzucena APRN BRAZER ASSEMBLER Unavailable Un available Clinic - [facility] Unavailabl e Reason for Visit * Reason Onset Date Comments *-*INCOMING RECORDS*-* 09/17/2019 Encounter Details Date Type Department Care Team (Late st Contact Info) Description 09/17/2019 PRE VISIT [facility] [address] [facility] [address] 4th [place] [address] Chucho Clement MD [address] [place] [address] *-*INCOMING RECORDS*-* Social History Tobacco Use Types Packs/Day Years Used Date Smoking Tobacco: Never Assessed PHQ-2 Answer Date Recorded PHQ-2 Score 4 09/17/2019 Sex and Gender Information Value Date Recorded Sex Assigned at Male 11/29/2020 12:43 PM CDT Legal Sex Male 2:58 AM ADVERTISING DIRECTOR Gender Identity Male 11/29/2020 12:43 PM CDT Sexual Orientation Choose not to disclose 2021 4:07 PM ADVERTISING DIRECTOR documented as of this encounter Miscellaneous Notes * Telephone Encounter - Isatu Bajwa - 09/08/2019 3:34 PM CST DIAGNOSIS: Consult SI Joint Fusion - Referred by Dr Angel Mccormick [facility] [place] [phone]. [address] CT 2018 & INjection 2019 in [facility] system- No history of surgery - No recent imaging - Med Recs at [facility] - also need imaging & records & INjections from pain clinic in [facility] & PT notes from Elicia Hawthorne. Appt per pt. per Kacy Liu APPOINTMENT DATE: Sep 17, 2019 NOTES STATUS DETAILS OFFICE NOTE from referring provider Care Everywhere 08/21/19 Dr. Mccormick OFFICE NOTE from other specialist Care Everywhere PT elicia selby ([facility]) 07/10/19, 07/08/19, 07/03/19, 07/01/19, 06/26/19, 06/24/19, 06/05/19... [facility]ina - EMG 01/26/16 [facility] 01/10/18 Dr. Ragsdale ([facility]) [facility] DISCHARGE SUMMARY from hospital N/A DISCHARGE REPORT from the ER N/A OPERATIVE REPORT N/A MEDICATION LIST Care Everywhere IMPLANT RECORD/STICKER N/A LABS CBC/DIFF N/A CULTURES N/A INJECTIONS DONE IN RADIOLOGY Received [facility] ([facility]) 07/29/19-r [facility] ([facility]) injections: 10/13/18, 12/06/18, 11/07/18 *REPORTS ONLY - NO IMAGING PER [facility] MRI In process 06/26/16 (L [...] 8:32 AM 07/06/16 L-spine was done at [facility] Neuro per [facility] Called [facility] and [facility] for MRI to be pushed/disc Roseann Díaz CMA 09/15/19 SE 2:17 PM Called [facility] film room to request [facility] injection images, they are not there. Called [facility] directly. Called [facility] [phone] 09/12/19 10:24 AM [facility] images resolved in PACS Called [facility] and requested images Roseann Díaz CMA 09/08/19 SE 3:38 PM Faxed request to [facility] for images (after 15 minutes on hold with radiology) Faxed request to [facility] for 2016 L spine MRI Faxed request to [facility] (mentioned in previous notes with his [facility] providers) *[facility] and [facility] are both part of [facility], will see if they are able to push imaging. *Patient does not recall where 2016 MRI was done, tried [facility], but will need to try other options ifthat is not fruitful. RTISING DIRECTOR RTISING DIRECTOR RTISING DIRECTOR RTISING DIRECTOR RTISING DIRECTOR RTISING DIRECTOR RTISING DIRECTOR RTISING DIRECTOR documented in this encounter Plan of Treatment Upcoming Encounters Date Type Department Care Team (Late st Contact Info) Description 09/25/2024 8:30 AM ADVERTISING DIRECTOR Office Visit [facility] Physical Medicine and Rehabilitation [address], [facility] 200 [place] [address] Chucho Santizo MD [address] [place] [address] [phone] documented as of this encounter Visit Diagnoses Not on filedocumented in this encounter Additional Health Concerns Assessment Noted Time PHQ-9 Depression Total Score: 7 09/18/19 7:04 AM ADVERTISING DIRECTOR documented as of this encounter Care Teams Videotape Sales Representative Relationship Specialty Start Date End Date Ben Cadena PCP - General Family Practice 09/04/19 Angel Mccormick MD Family Practice 09/04/19 Chucho Clement MD [address] [place] [address] Orthopedics 09/04/19 Chucho Clement MD [address] [place] [address] 7[address]64 Assigned Musculoskeletal Provider 05/14/20 03/19/21 Darion So MD [address] [place] [address] Nephrology 12/09/20 Carolina Flanagan PA-C [address] [facility] 195 [place] [address] Assigned Surgical Provider 12/12/20 01/08/21 Guanaco Michael MD [address] [facility] 195 [place], [place] [address] Assigned Surgical Provider 12/05/20 12/11/20 Regis Lyons MD [address] 607065 Assigned Surgical Provider 01/09/21 01/15/21 Carolina Flanagan PA-C [address] 903605 Assigned Surgical Provider 01/16/21 08/20/21 Robert Boggs, PhD LP [address] [facility] 741 [place] [address] Assigned Behavioral Health Provider 07/10/21 02/23/23 Milla Ramsay PA-C [facility], SURGERY [address] [facility] [address] [place], [place] 8[address] Assigned Gastroenterology Provider 08/21/21 09/24/21 Regis Lyons MD [address] [facility] 195 [place], [place] 289715 Assigned Surgical Provider 08/21/21 02/02/23 Gutierrez Guthrie DO [address] Zhang [address], [address] [address] Orthopaedic Surgery Foot and Ankle Surgery 02/05/23 Erick Lagunas MD [address] [place] [address] [facility] 300 [place] [address] Assigned Infectious Disease Provider 02/10/23 Azucena Billingsley APRN BRAZER ASSEMBLER Assigned Pain Medication Provider 06/16/23 08/15/23 Azucena Billingsley APRN BRAZER ASSEMBLER Assigned PCP 05/09/23 09/13/23 Azucena Billingsley APRN BRAZER ASSEMBLER Assigned PCP 10/13/23 11/12/23 Chucho Santizo MD [address] [place] [address] Assigned Neuroscience Provider 10/05/23 Azucena Billingsley APRN BRAZER ASSEMBLER Assigned PCP 09/14/23 10/12/23 [facility] [address] [place] [address] Assigned PCP 11/13/23 documented as of this encounter
--- OUTSIDE RECORDS SUMMARY | 2024-06-27 07:11 | XMS_ITS | Encounter Summary ---
Author Organization [facility] Address [address] [place] [address] Care Team Providers Care Head Gauge Unit Operator Name Role Phone Ben Cadena Primary Care Provider [phone] Angel Mccormick MD Unavailable +[phone] Chucho Clement MD Unavailable +[phone] Chucho Clement MD Unavailable +[phone] Darion So MD Unavailable +[phone] Carolina Flanagan PA-C Unavailable + [phone] Guanaco Michael MD Unavailable +[phone] Regis Lyosn MD Unavailable +[phone] Carolina Flanagan PA-C Unavailable +[phone] Robert Boggs PhD LP Unavailable +[phone] Milla Ramsay PA-C Unavailable +[phone] Regis Lyons MD Unavailable +[phone] Gutierrez Guthrie DO Unavailable + [phone] Erick Lagunas MD Unavailable +[phone] AnaliliaAzucena APRN RESIDENTIAL SALES MANAGER Unavailable Un available Analilia, Azucena Veras APRN RESIDENTIAL SALES MANAGER Unavailable Un available Analilia, Azucena Veras APRN RESIDENTIAL SALES MANAGER Unavailable Un available Chucho Santizo MD Unavailable [phone] AnaliliaAzucena APRN RESIDENTIAL SALES MANAGER Unavailable Un available Clinic - [facility] Unavailabl e Encounter Details Date Type Department Care Team (Late st Contact Info) Description 12/07/2020 MyC Medical Advice [facility] [address] 4th [place] [address] Carolina Flanagan PA-C [address] [facility] [address] [place] [address] Social History Tobacco Use Types [...] PM CDT Legal Sex Male 2:58 AM PACK OUT OPERATOR Gender Identity Male 11/29/2020 12:43 PM CDT Sexual Orientation Choose not to disclose 2021 4:07 PM PACK OUT OPERATOR documented as of this encounter Plan of Treatment Upcoming Encounters Date Type Department Care Team (Late st Contact Info) Description 09/25/2024 8:30 AM PACK OUT OPERATOR Office Visit [facility] [address], [address] [place] [address] Chucho Santizo MD [address] [place] [address] [id number] documented as of this encounter Visit Diagnoses Not on filedocumented in this encounter Additional Health Concerns Assessment Noted Time PHQ-9 Depression Total Score: 7 02/27/20 20 7:04 AM PACK OUT OPERATOR documented as of this encounter Care Teams Head Gauge Unit Operator Relationship Specialty Start Date End Date Ben Cadena PCP - General Family Practice 09/04/19 Angel Mccormick MD Family Practice 09/04/19 Chucho Clement MD [address] [place] [address] Orthopedics 09/04/19 Chucho Clement MD [address] [place] [address] Assigned Musculoskeletal Provider 05/14/20 03/19/21 Darion So MD [address] [place] [phone] Nephrology 12/09/20 Carolina Flanagan PA-C [address] [place] [address] Assigned Surgical Provider 12/12/20 01/08/21 Guanaco Michael MD [address] [place] [address] Assigned Surgical Provider 12/05/20 12/11/20 Regis Lyons MD [address] [place] [address] Assigned Surgical Provider 01/09/21 01/15/21 Carolina Flanagan PA-C 420 [facility] 195 [place] [address] Assigned Surgical Provider 01/16/21 08/20/21 Robert Boggs, PhD LP 420 [facility] [address] [place] [address] Assigned Behavioral Health Provider 07/10/21 02/23/23 Milla Ramsay PA-C [facility], SURGERY [address] [facility] [address] [place], [place] [address] Assigned Gastroenterology Provider 08/21/21 09/24/21 Regis Lyons MD 420 [facility] 195 [place], [place] [address] Assigned Surgical Provider 08/21/21 02/02/23 Gutierrez Guthrie DO [address], [facility] [address] [place] [address] Orthopaedic Surgery Foot and Ankle Surgery 02/05/[address] [facility] [address] [facility] [address], [place] [phone] Assigned Infectious Disease Provider 02/10/23 Azucena Billingsley APRN RESIDENTIAL SALES MANAGER Assigned Pain Medication Provider 06/16/23 08/15/23 Azucena Billingsley APRN RESIDENTIAL SALES MANAGER Assigned PCP 05/09/23 09/13/23 Azucena Billingsley APRN RESIDENTIAL SALES MANAGER Assigned PCP 10/13/23 11/12/23 Chucho Santizo MD [address] [place] [address] Assigned Neuroscience Provider 10/05/23 Azucena Billingsley APRN RESIDENTIAL SALES MANAGER Assigned PCP 09/14/23 10/12/23 [facility] [address] [place], [place] [id number] Assigned PCP 11/13/23 documented as of this encounter
--- OUTSIDE RECORDS SUMMARY | 2024-06-27 07:11 | XMS_ITS | Encounter Summary ---
Author Organization [facility] Address [address] [place] [address] Care Team Providers Care Rn Oncology Clinical Name Role Phone Ben Cadena Primary Care Provider [phone] Angel Mccormick MD Unavailable +[phone] Chucho Clement MD Unavailable [phone] Chucho Clement MD Unavailable +[phone] Darion So MD Unavailable [phone] Carolina Flanagan PA-C Unavailable + [phone] Guanaco Michael MD Unavailable +[phone] Regis Lyons MD Unavailable +[phone] Carolina Flanagan PA-C Unavailable +[phone] Robert Boggs PhD LP Unavailable +[phone] Milla Ramsay PA-C Unavailable [phone] Regis Lyons MD Unavailable +[phone] Gutierrez Guthrie DO Unavailable + [phone] Erick Lagunas MD Unavailable +[phone] AnaliliaAzucena APRN BUZZLE BUFFER Unavailable Un available Analilia, Azucena Veras APRN BUZZLE BUFFER Unavailable Un available Analilia, Azucena Veras APRN BUZZLE BUFFER Unavailable Un available Chucho Santizo MD Unavailable [phone] AnaliliaAzucena APRN BUZZLE BUFFER Unavailable Un available Clinic - [facility] Unavailabl e Encounter Details Date Type Department Care Team (Late st Contact Info) Description 11/30/2020 [facility] [place] [address] [place] [address] Carolina Flanagan PA-C [address] [facility] [address] [place] [address] Social History Tobacco Use Types [...] PM CDT Legal 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 Gender Identity Male 11/29/2020 12:43 PM CDT Sexual Orientation Choose not to disclose 2021 4:07 PM 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 REPAIRER HELPER documented as of this encounter Miscellaneous Notes [...] st Contact Info) Description 09/25/2024 8:30 AM INSTRUMENT REPAIRER HELPER Office Visit [facility] [address], [address] [place] [phone] Chucho Santizo MD [address] [place] [address] documented as of this encounter Visit Diagnoses Not on filedocumented in this encounter Additional Health Concerns Assessment Noted Time PHQ-9 Depression Total Score: 7 09/18/19 20 7:04 AM INSTRUMENT REPAIRER HELPER documented as of this encounter Care Teams Rn Oncology Clinical Relationship Specialty Start Date End Date Ben Cadena PCP - General Family Practice 09/04/19 Angel Mccormick MD Family Practice 09/04/19 Chucho Clement MD [address] [place] [address] Orthopedics 09/04/19 Chucho Clement MD [address] [place] [address] Assigned Musculoskeletal Provider 05/14/20 03/19/21 Darion So MD [address] [place] [address] Nephrology 12/09/20 Carolina Flanagan PA-C [address] [place] [address] 195 [place] [address] Assigned Surgical Provider 12/12/20 01/08/21 Guanaco Michael MD 420 [facility] [address] [place] [address] Assigned Surgical Provider 12/05/20 12/11/20 Regis Lyons MD 420 [facility] [address] [place] [address] Assigned Surgical Provider 01/09/21 01/15/21 Carolina Flanagan PA-C 420 [facility] [address] [place] [address] Assigned Surgical Provider 01/16/21 08/20/21 Robert Boggs, PhD LP 420 [facility] 741 [place] [address] Assigned Behavioral Health Provider 07/10/21 02/23/23 Milla Ramsay PA-C [facility], SURGERY [address] [place] [address] Assigned Gastroenterology Provider 08/21/21 09/24/21 Regis Lyons MD 420 [facility] [address] [place] [address] Assigned Surgical Provider 08/21/21 02/02/23 Gutierrez Guthrie DO [address], [facility] 200 [place], [place] [phone] Orthopaedic Surgery Foot and Ankle Surgery 02/05/23 Erick Lagunas MD [address] [facility] 300 [place] [address] Assigned Infectious Disease Provider 02/10/23 Azucena Billingsley APRN BUZZLE BUFFER Assigned Pain Medication Provider 06/16/23 08/15/23 Azucena Billingsley APRN BUZZLE BUFFER Assigned PCP 05/09/23 09/13/23 Azucena Billingsley APRN BUZZLE BUFFER Assigned PCP 10/13/23 11/12/23 Chucho Santizo MD [address] [place] [address] Assigned Neuroscience Provider 10/05/23 Azucena Billingsley APRN BUZZLE BUFFER Assigned PCP 09/14/23 10/12/23 [facility] [id number] [place] [id number] Assigned PCP 11/13/23 documented as of this encounter
--- NOTE | 2024-06-27 08:27 | W.ANESCHARGE ---
Anesthesia Charges Start Date/Time Anesthesia Start Date: 06/27/24 Anesthesia Start Time: 07:56 Stop Date/Time Anesthesia Stop Date: 06/27/24 Anesthesia Stop Time: 08:22
--- NOTE | 2024-06-27 08:44 | W.ANESCHARGE ---
Anesthesia Charges Start Date/Time Anesthesia Start Date: 06/27/24 Anesthesia Start Time: 07:56 Stop Date/Time Anesthesia Stop Date: 06/27/24 Anesthesia Stop Time: 08:22
== END 2024-06-27 07:06 | disposition home or self-care (01) ==
LOC: OP CLINIC 07:06
PROVIDERS: PCP Family Medicine; Visit Provider Internal Medicine Gastroenterology
DX: Z12.11 Encounter for screening for malignant neoplasm of colon (principal); Z86.0101 Personal history of adenomatous and serrated colon polyps
CPT/HCPCS: 00812; 45378; J2704